=== PATIENT | female | born 1960 | race Caucasian/White ===

== ENCOUNTER → 2017-08-31 11:38 | Outpatient (REF) | payer MEDICARE, SELFPAY ==
[2017-08-31 19:15] LABS: Basophils # 0.1 K/mm3 (0-0.2); Basophils % 0.7 % (0.1-2.0); Eosinophils # 0.3 K/mm3 (0.0-0.4); Eosinophils % 3.5 % (0.1-12.0); Hematocrit 45.1 % (37.0-47.0); Hemoglobin 14.3 g/dL (12.2-16.2); Lymphocytes # 2.3 K/mm3 (0.7-4.5); Lymphocytes % 27.8 K/mm3 (10-50); Mean Corpuscular HGB Conc 31.7 g/dL (31.8-35.4); Mean Corpuscular Hemoglobin 27.4 pg (27.0-31.2); Mean Corpuscular Volume 86.4 fl (81-99); Mean Platelet Volume 9.9 fl (7.4-10.4); Monocytes # 0.6 K/mm3 (0.1-1.0); Monocytes % 7.1 % (1.7-9.3); Neutrophils % 60.9 % (37.0-80.0); Platelet Count 221 K/mm3 (142-424); Red Blood Count 5.22 M/mm3 (4.20-5.40); Red Cell Distribution Width 14.5 % (11.5-17.5); White Blood Count 8.2 K/mm3 (4.8-10.8)
[2017-08-31 19:32] LABS: Alanine Aminotransferase 15 U/L (12-78); Albumin Level 3.1 gm/dL (3.4-5.0); Albumin/Globulin Ratio 0.8 (1.1-1.8); Alkaline Phosphatase 121 U/L (46-116); Anion Gap 10.1 mEq/L (5-15); Aspartate Amino Transferase 12 U/L (15-37); Bilirubin,Total 0.1 mg/dL (0.2-1.0); Blood Urea Nitrogen 8 mg/dL (7-18); Calcium 8.7 mg/dL (8.5-10.1); Carbon Dioxide 30 mmol/L (21.0-32.0); Chloride 106 mmol/L (98-107); Chol/HDL Ratio 1.8 (1-3.5); Cholesterol 138 mg/dL (140-200); Creatinine,Serum 0.72 mg/dL (0.55-1.02); Estimated Glomerular Filt Rate 84 ml/min (>60); GFR (African American) 101 ML/MIN (>60); Globulin 3.7 gm/dl (1.3-3.2); Glucose 87 mg/dL (74-106); HDL Cholesterol 78 mg/dL (29-89); LDL Cholesterol 47 mg/dL (0-130); Potassium 4.1 mmoL/L (3.5-5.1); Sodium 142 mmol/L (136-145); T4 (Thyroxine) 14.1 ug/dl (4.7-13.3); Thyroid Stimulating Hormone 1.64 uIU/ml (0.358-3.740); Total Protein,Serum 6.8 gm/dL (6.4-8.2); Triglycerides 66 mg/dL (30-200); VLDL Cholesterol 13 mg/dL (0-40)
[2017-08-31 20:25] LABS: Amphetamine/Metha Screen,Urine Negative ng/mL (<1000); Barbiturates Screen,Urine Negative ng/mL (<200); Benzodiazepines Screen,Urine Negative ng/mL (200); Cannabinoid Screen,Urine Negative ng/mL (<50); Cocaine Screen,Urine Negative ng/g (<300); Methadone Screen,Urine Negative ng/mL (<300); Opiate Screen,Urine Negative ng/mL (<300); Phencyclidine Screen,Urine Negative ng/mL (<25)
== END ==
LOC: LAB 11:38
PROVIDERS: Visit Provider Physician Assistant
DX: Z79.899 Other long term (current) drug therapy (principal); I10 Essential (primary) hypertension; F41.9 Anxiety disorder, unspecified
CPT/HCPCS: 80053; 80061; 80305; 84436; 84443; 85025

== ENCOUNTER → 2017-09-16 09:45 | Outpatient (CLI) | payer MEDICARE, SELFPAY ==
[2017-09-16 11:16] VITALS: BP 114/77; BP 134/91; PULSE 68; PULSE 70; RESP 18; RESP 22; O2SAT 92; O2SAT 95
== END ==
PROVIDERS: PCP Physician Assistant; Visit Provider Internal Medicine
DX: J43.9 Emphysema, unspecified (principal); J44.9 Chronic obstructive pulmonary disease, unspecified; R06.02 Shortness of breath
CPT/HCPCS: 94060; 94618; 94640; 94727; 94729

== ENCOUNTER 2017-12-12 08:00 | Outpatient (RCR) | payer MEDICARE, SELFPAY ==
--- NOTE | 2017-11-07 10:03 | HMH.PTOPEV ---
Rehab Outpatient Evaluation Rehab OP Evaluation Start: 11/07/17 09:49 Freq: Status: Active Protocol: Document 11/07/17 09:52 YON (Rec: 11/07/17 10:03 YON [id number]) Electronically Signed By Viraj Dukes PT 11/07/17 09:52 Outpatient Therapy Subjective History Subjective History This is the initial Physical Therapy evaluation for Lacy Shaw. Pt is a 57 y/o female referred to PT for c/o LBP and RLE radicular S&S. Pt reports years of intermittant pain w. sciatica . Pt reports this bout began ~ 2 months ago w/ insidious onset. Chief Complaint Pain Stiff Paresthesia Weakness Symptom Type Ache Throb Sharp Dull Stabbing Burning Numbness Tingling Shooting Symptoms Relieved By Heat OTC Meds Symptoms Aggravated By Sitting Standing Bending/Stooping Physical Activity Walking Prior Functional Limitations None Current Functional Limitations Lifting Housework Sleeping Standing Sitting Recreation Activity Walking Bending/Stooping Symptom Description Intermittent Activity Dependent Level of pain today (0-10) 8 Pain scale - at its best (0-10) 0 Pain scale - at its worst (0-10) 9 Lumbopelvic Eval Posture Thoracic Spine Posture Standing Position Increased Kyphosis Lumbar Spine Posture Standing Position Flattened Assistive device Assistive Devices None / NA Gait Observation General Gait Pattern Observation Antalgic Gait Palapation tenderness bilateral thoracic spinal tenderness No lumbar spinal tenderness Yes paraspinal tenderness Yes buttock tenderness Yes: R Lumbar/Sacral Palpation Findings Tenderness Accessory Movement L-spine Vertebrae Accessory Movements Central P/A [place] that Elicit Symptoms
== END 2017-12-12 08:01 | disposition home or self-care (01) ==
LOC: PT 08:00
PROVIDERS: PCP Physician Assistant; Visit Provider Physician Assistant
DX: M54.30 Sciatica, unspecified side (principal)
CPT/HCPCS: 97010; 97012; 97014; 97035; 97110; G0283

== ENCOUNTER → 2017-12-19 12:52 | Outpatient (CLI) | payer MEDICARE, SELFPAY ==
--- NOTE | 2017-12-19 12:53 | MR_ITS ---
MR lumbar spine wo con, MR 3-d myelogram/MRCP Ordering Physician: MELISSA Houser Patient Age: 57 years: Female HISTORY: ITS.REASON: back pain radiating to bilateral legs TECHNIQUE: Sagittal STIR, T1, T2, axial T1 and T2. On 1.5T Siemens wide bore MRI. 3-D MR myelogram image set obtained & performed on MRI workstation. Additional sagittal thin section T2 weighted dataset obtained from this latter acquisition as well (---76 CPT) COMPARISON : 2015 MRI L-spine FINDINGS . Vertebral bodies appear intact. No lesions or significant compression fractures. There is normal alignment. Conus ends appropriately L1-L2 level. T12-L1: Unremarkable. L1-L2: Minimal concentric bulging disc slightly eccentric to the right with minimal right foraminal narrowing. L2-L3: Minimal facet hypertrophic change. L3-L4: concentric bulging disc with additional foraminal bulge. Moderate facet hypertrophy. The disc is slightly eccentric to the right with associated early posterior marginal osteophytes posteriorly rightward-. These features yield moderate right foraminal narrowing. . No significant change since prior study.. L4-L5: Degenerative disc disease with moderate concentric bulging disc and spondylosis. Mild diffuse posterior ridging. Moderate facet & ligamentum flavum hypertrophy.. These features combine to yield now moderate central canalstenosis ; with bilateral lateral recess narrowing & foraminal encroachment at at L4-L5.. Slight progression of the central canal stenosis based on the 3-D MR myelogram image set since 2016. Multiple features further narrow the spinal canal these are described above also slight additional fat posterior additionally narrows the thecal sac Appears to be slight additional disc bulge and protrusion to the right- most notable at and lateral lateral to the right foramen on today's study vs prior. L5-S1: Degenerative disc disease with mild spondylosis, & diffuse bulging disc. Facet and endplate hypertrophic change. Yield moderate bilateral foraminal narrowing. May be to be slight progression of the bulging disc at entry right foramen and left foramen No Elmer disc herniation is evident. 3-D MR myelogram image set suggests slight progression of spinal stenosis most pronounced at L4/5 level . L3/4 with mild tapering the spinal canal more evident to the right IMPRESSION: 1. Multilevel bulging disc with degenerative disc disease as detailed of each level above with resultant multiple areas of foraminal encroachment. ... L4/5: Most prominent findings are at L4/5 where moderate spinal stenosis. -This appears to have shown slight progression since 2016 Degenerative disc disease at L4-L5 with spondylosis & moderate diffuse disc bulge. Also Suggestion perhaps subtle progressive disc bulge/mild protrusion seen rightward & continuing lateral to the right foramen. Moderate bilateralforaminal narrowing & lateral recess narrowing. ... L5/S1 Moderate bilateral foraminal narrowing at L5-S1 from spondylosis with bulging disc & facet hypertrophy. Moderate Bilateral recess and foraminal encroachment- similar to questionable slight progression bilaterally since 2016. ... L3/4 stable Right foraminal narrowing at L3-L4 due to bulging disc and endplatehypertrophic change 5. No elmer disc herniation evident.
== END ==
PROVIDERS: PCP Physician Assistant; Visit Provider Physician Assistant
DX: M54.40 Lumbago with sciatica, unspecified side (principal); M48.061 Spinal stenosis, lumbar region without neurogenic claudication
CPT/HCPCS: 72148; 76376

== ENCOUNTER → 2017-12-28 13:17 | Outpatient (REF) | payer MEDICARE, SELFPAY ==
[2017-12-28 19:30] LABS: Amphetamine/Metha Screen,Urine Negative ng/mL (<1000); Barbiturates Screen,Urine Negative ng/mL (<200); Benzodiazepines Screen,Urine Negative ng/mL (200); Cannabinoid Screen,Urine Negative ng/mL (<50); Cocaine Screen,Urine Negative ng/g (<300); Methadone Screen,Urine Negative ng/mL (<300); Opiate Screen,Urine Negative ng/mL (<300); Phencyclidine Screen,Urine Negative ng/mL (<25)
== END ==
LOC: LAB 13:17
PROVIDERS: Visit Provider Physician Assistant
DX: M79.7 Fibromyalgia (principal)
CPT/HCPCS: 80305

== ENCOUNTER → 2018-02-21 09:25 | Outpatient (REF) | payer MEDICARE, SELFPAY ==
[2018-02-21 13:21] LABS: Basophils # 0.1 K/mm3 (0-0.2); Basophils % 0.7 % (0.1-2.0); Eosinophils # 0.3 K/mm3 (0.0-0.4); Eosinophils % 3.9 % (0.1-12.0); Hematocrit 37.2 % (37.0-47.0); Hemoglobin 14.1 g/dL (12.2-16.2); Lymphocytes # 2.1 K/mm3 (0.7-4.5); Lymphocytes % 26.9 K/mm3 (10-50); Mean Corpuscular HGB Conc 38.1 g/dL (31.8-35.4); Mean Corpuscular Hemoglobin 32.5 pg (27.0-31.2); Mean Corpuscular Volume 85.4 fl (81-99); Mean Platelet Volume 9.4 fl (7.4-10.4); Monocytes # 0.4 K/mm3 (0.1-1.0); Monocytes % 5.7 % (1.7-9.3); Neutrophils # 4.9 K/mm3 (1.8-7.8); Neutrophils % 62.7 % (37.0-80.0); Platelet Count 179 K/mm3 (142-424); Red Blood Count 4.35 M/mm3 (4.20-5.40); Red Cell Distribution Width 14.7 % (11.5-17.5); White Blood Count 7.8 K/mm3 (4.8-10.8)
[2018-02-21 14:19] LABS: Alanine Aminotransferase 24 U/L (12-78); Albumin Level 3.5 gm/dL (3.4-5.0); Alkaline Phosphatase 132 U/L (46-116); Anion Gap 14.1 mEq/L (5-15); Aspartate Amino Transferase 17 U/L (15-37); Bilirubin,Total 0.3 mg/dL (0.2-1.0); Blood Urea Nitrogen 6 mg/dL (7-18); Calcium 9.3 mg/dL (8.5-10.1); Carbon Dioxide 29 mmol/L (21.0-32.0); Chloride 105 mmol/L (98-107); Chol/HDL Ratio 2.5 (1-3.5); Cholesterol 136 mg/dL (140-200); Creatinine,Serum 0.62 mg/dL (0.55-1.02); Estimated Glomerular Filt Rate 100 ml/min (>60); GFR (African American) 120 ML/MIN (>60); Globulin 3.6 gm/dl (1.3-3.2); Glucose 100 mg/dL (74-106); HDL Cholesterol 55 mg/dL (29-89); LDL Cholesterol 65 mg/dL (0-130); Potassium 4.1 mmoL/L (3.5-5.1); Sodium 144 mmol/L (136-145); T4 (Thyroxine) 9.9 ug/dl (4.7-13.3); Thyroid Stimulating Hormone 1.76 uIU/ml (0.358-3.740); Total Protein,Serum 7.1 gm/dL (6.4-8.2); Triglycerides 81 mg/dL (30-200); VLDL Cholesterol 16 mg/dL (0-40)
[2018-02-22 12:26] LABS: Vitamin D 25 Hydroxy 25.9 ng/mL (30.0-100.0)
== END ==
LOC: LAB 09:25
PROVIDERS: Visit Provider Physician Assistant
DX: J44.9 Chronic obstructive pulmonary disease, unspecified (principal); M79.7 Fibromyalgia; E66.9 Obesity, unspecified; E03.9 Hypothyroidism, unspecified; E78.5 Hyperlipidemia, unspecified; E55.9 Vitamin D deficiency, unspecified
CPT/HCPCS: 80053; 80061; 82652; 84436; 84443; 85025

== ENCOUNTER → 2018-05-15 10:20 | Outpatient (REF) | payer MEDICARE, SELFPAY ==
[2018-05-15 14:44] LABS: Basophils # 0.1 K/mm3 (0-0.2); Basophils % 0.4 % (0.1-2.0); Eosinophils # 0.1 K/mm3 (0.0-0.4); Eosinophils % 1.1 % (0.1-12.0); Hematocrit 46.3 % (37.0-47.0); Hemoglobin 14.5 g/dL (12.2-16.2); Lymphocytes # 2.4 K/mm3 (0.7-4.5); Lymphocytes % 22.9 K/mm3 (10-50); Mean Corpuscular HGB Conc 31.3 g/dL (31.8-35.4); Mean Corpuscular Volume 86.3 fl (81-99); Mean Platelet Volume 9.4 fl (7.4-10.4); Monocytes # 0.6 K/mm3 (0.1-1.0); Monocytes % 5.3 % (1.7-9.3); Neutrophils # 7.5 K/mm3 (1.8-7.8); Neutrophils % 70.2 % (37.0-80.0); Platelet Count 275 K/mm3 (142-424); Red Blood Count 5.37 M/mm3 (4.20-5.40); White Blood Count 10.7 K/mm3 (4.8-10.8)
[2018-05-15 14:58] LABS: Alanine Aminotransferase 28 U/L (12-78); Albumin Level 3.4 gm/dL (3.4-5.0); Albumin/Globulin Ratio 0.9 (1.1-1.8); Alkaline Phosphatase 131 U/L (46-116); Anion Gap 9.4 mEq/L (5-15); Aspartate Amino Transferase 12 U/L (15-37); Bilirubin,Total 0.2 mg/dL (0.2-1.0); Blood Urea Nitrogen 8 mg/dL (7-18); Calcium 9.3 mg/dL (8.5-10.1); Carbon Dioxide 33 mmol/L (21.0-32.0); Chloride 105 mmol/L (98-107); Cholesterol 153 mg/dL (140-200); Creatinine,Serum 0.58 mg/dL (0.55-1.02); Estimated Glomerular Filt Rate 108 ml/min (>60); GFR (African American) 130 ML/MIN (>60); Globulin 3.7 gm/dl (1.3-3.2); Glucose 83 mg/dL (74-106); HDL Cholesterol 75 mg/dL (29-89); LDL Cholesterol 66 mg/dL (0-130); Potassium 4.4 mmoL/L (3.5-5.1); Sodium 143 mmol/L (136-145); T4 (Thyroxine) 8.2 ug/dl (4.7-13.3); Thyroid Stimulating Hormone 1.58 uIU/ml (0.358-3.740); Total Protein,Serum 7.1 gm/dL (6.4-8.2); Triglycerides 60 mg/dL (30-200); VLDL Cholesterol 12 mg/dL (0-40)
[2018-05-17 16:51] LABS: Vitamin D 25 Hydroxy 35.4 ng/mL (30.0-100.0)
== END ==
LOC: LAB 10:20
PROVIDERS: Visit Provider Physician Assistant
DX: M79.7 Fibromyalgia (principal); E03.9 Hypothyroidism, unspecified; E78.5 Hyperlipidemia, unspecified; R73.9 Hyperglycemia, unspecified
CPT/HCPCS: 80053; 80061; 82652; 83036; 84436; 84443; 85025

== ENCOUNTER → 2018-05-15 10:39 | Outpatient (POV) | payer MEDICARE, SELFPAY | PROVIDERS: PCP Physician Assistant; Visit Provider Specialist | DX: R20.2 Paresthesia of skin (principal); M79.7 Fibromyalgia; E03.9 Hypothyroidism, unspecified; E78.5 Hyperlipidemia, unspecified; R73.9 Hyperglycemia, unspecified | CPT/HCPCS: 80053; 80061; 82652; 83036; 84436; 84443; 85025; 95886; 95909 ==

== ENCOUNTER → 2018-05-30 09:48 | Outpatient (CLI) | payer MEDICARE, SELFPAY ==
--- NOTE | 2018-05-30 | NVE_ITS ---
Venous Exam Indications: 729.5 Pain in limb. IMPRESSIONS 1. There is no evidence of significant Reflux. 2. No evidence of deep or superficial vein thrombosis involving the left lower extremity History: Medications: Aspirin, 81 mg daily. Left lower extremity venous duplex evaluation. Doppler flow study including spectral analysis, color and barone scale imaging. Location: Vascular laboratory. Patient status: Outpatient. Tables: Venous flow and imaging: + + + + Location Overall Flow properties + + + + Left common femoral Patent Normal phasicity; spontaneous; normal augmentation; compressible + + + + Left saphenofemoral junction Patent Compressible + + + + Left profunda femoral Patent Compressible + + + + Left femoral Patent Normal phasicity; spontaneous; normal augmentation; compressible + + + + Left greater saphenous Patent Normal phasicity; spontaneous; normal augmentation; compressible + + + + Left popliteal Patent Normal phasicity; spontaneous; normal augmentation; compressible + + + + Left posterior tibial Patent Compressible + + + + Left peroneal Not visualized + + + + Left gastrocnemius Patent Compressible + + + + Left soleal Patent Compressible + + + + (Report amended ) Electronically signed by: Fidencio Rand [id number]
== END ==
PROVIDERS: PCP Physician Assistant; Visit Provider Nurse Practitioner Family
DX: M79.605 Pain in left leg (principal); M79.604 Pain in right leg
CPT/HCPCS: 93971

== ENCOUNTER → 2018-06-20 10:53 | Outpatient (POV) | payer MEDICARE, SELFPAY ==
[2018-06-20 11:09] VITALS: BP 190/92; PULSE 77; RESP 18; O2SAT 98
--- NOTE | 2018-06-20 12:51 | HMH.PMCON ---
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 I will follow-up with her 2 weeks after. I discussed with her we would not be writing any medications. This note was dictated using voice recognition software and may contain errors or omissions HPI - Data of Consult Consult date: 06/20/18 Requesting Physician: Bree Meléndez APRN Primary Care Provider: MELISSA Yin - Consult Narrative Reason for consult: Back pain History of present illness: Ms. Shaw is a 57 year old female who presents today for consultation for her low back pain. Patient has been seen in our clinic before and self discharged after she stated that injections did not help. Patient is again because she would like to try injections with Dr. Shields. Patient is not on any blood thinners. Patient's tried and failed physical therapy. She has been receiving injections from Dr. Debra Freedman in her hips. She states that this does help. Patient's tried and failed Flexeril, Cymbalta, Lexapro, Lortab, Motrin, Mobic, Paxil, Zoloft, Lyrica and gets some relief with a TENS unit. Patient states that she would like something for pain today. I discussed with her we would not be writing her any medications. She does have an MRI showing some degenerative changes in her low back. CC: Bree Meléndez APRN [facility] History I have reviewed the patient's past medical history: Yes Medical History: Reports:: Anxiety, Chronic Obstructive Pulmonary Disease (COPD), Gastroesophageal Reflux Disease(GERD), Hyperlipidemia, Hypertension Denies:: Diabetes Mellitus Type 2 Other Medical History: Reports: Hypothyroidism, Other Other Surgeries: Yes: Colonoscopy, , Hernia Repair, Sinus Surgery, Tubal Ligation Amputation: No Fractures: No - *Social History Smoking Status: Current every day smoker Tobacco Type: cigarettes # Packs/Day (cigarettes): 1 Alcohol Intake: never Substance Use Type: denies use Occupational Status: disabled Housing: house Household Members: family - Psychiatric History Expresses thoughts of harming self/others: None Suicide Plan Description: No Plan Pschychiatric History:: Reports:: Anxiety *Family Hx:: Cancer, Coronary Artery Disease, Hypertension Review of Systems - Review of Systems ROS General: no recent weight change, no fever, no sleep disturbances Respiratory: no cough, no shortness of air, no recurring pulmonary infections Cardiovascular/Peripheral Vascular: No chest pain, No palpitations, no edema, no shortness of breath. Gastrointestinal: no incontinence, normal bowel movements reported Genitourinary: no incontinence Musculoskeletal: Back pain, leg pain Psychiatric: normal mood/ affect Neurological: [denies weakness in extremities], [denies balance issues] Meds Home Medications Medication Instructions Recorded Confirmed Type meclizine 25 mg capsule 25 mg PO QID PRN 08/31/17 06/12/18 History azithromycin 250 mg tablet 250 mg PO .[id number] tab 12/28/17 06/12/18 History ALPRAZolam [Xanax 0.5mg tab] 0.5 mg PO BID 03/03/18 06/12/18 History Aspirin [Low Dose Aspirin EC] 81 mg PO QDAY 03/03/18 06/12/18 History Cholecalciferol (Vitamin D3) 1,000 unit PO DAILY 03/03/18 06/12/18 History [Vitam
--- NOTE | 2018-06-20 12:54 | P.CONS_ITS ---
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 I will follow-up with her 2 weeks after. I discussed with her we would not be writing any medications. This note was dictated using voice recognition software and may contain errors or omissions HPI - Data of Consult Consult date: 06/20/18 Requesting Physician: Bree Meléndez APRN Primary Care Provider: MELISSA Yin - Consult Narrative Reason for consult: Back pain History of present illness: Ms. Shaw is a 57 year old female who presents today for consultation for her low back pain. Patient has been seen in our clinic before and self discharged after she stated that injections did not help. Patient is again because she would like to try injections with Dr. Shields. Patient is not on any blood thinners. Patient's tried and failed physical therapy. She has been receiving injections from Dr. Debra Freedman in her hips. She states that this does help. Patient's tried and failed Flexeril, Cymbalta, Lexapro, Lortab, Motrin, Mobic, Paxil, Zoloft, Lyrica and gets some relief with a TENS unit. Patient sta jackie that she would like something for pain today. I discussed with her we would not be writing her any medications. She does have an MRI showing some degenerative changes in her low back. CC: Bree Meléndez APRN [facility] History I have reviewed the patient's past medical history: Yes Medical History: Reports:: Anxiety, Chronic Obstructive Pulmonary Disease (COPD), Gastroesophageal Reflux Disease(GERD), Hyperlipidemia, Hypertension Denies:: Diabetes Mellitus Type 2 Other Medical History: Reports: Hypothyroidism, Other Other Surgeries: Yes: Colonoscopy, , Hernia Repair, Sinus Surgery, Tubal Ligation Amputation: No Fractures: No - *Social History Smoking Status: Current every day smoker Tobacco Type: cigarettes # Packs/Day (cigarettes): 1 Alcohol Intake: never Substance Use Type: denies use Occupational Status: disabled Housing: house Household Members: family - Psychiatric History Expresses thoughts of harming self/others: None Suicide Plan Description: No Plan Pschychiatric History:: Reports:: Anxiety *Family Hx:: Cancer, Coronary Artery Disease, Hypertension Review of Systems - Review of Systems ROS General: no recent weight change, no fever, no sleep disturbances Respiratory: no cough, no shortness of air, no recurring pulmonary infections Cardiovascular/Peripheral Vascular: No chest pain, No palpitations, no edema, no shortness of breath. Gastrointestinal: no incontinence, normal bowel movements reported Genitourinary: no incontinence Musculoskeletal: Back pain, leg pain Psychiatric: normal mood/ affect Neurological: [denies weakness in extremities], [denies balance issues] Meds
== END ==
PROVIDERS: PCP Physician Assistant; Visit Provider Clinical Nurse Specialist Family Health
DX: M48.061 Spinal stenosis, lumbar region without neurogenic claudication (principal); M51.36 Other intervertebral disc degeneration, lumbar region; M25.78 Osteophyte, vertebrae
CPT/HCPCS: 99202

== ENCOUNTER → 2018-07-11 09:21 | Outpatient (CLI) | payer MEDICARE, SELFPAY ==
--- NOTE | 2018-07-11 09:22 | MM_ITS ---
MM Dig screening mamm BI w/CAD CAD Screening COMPARISON: Digital mammograms with CAD 06/02/2017 and 05/03/2016 INDICATION: There is no personal or family history of breast cancer. There has been a previous biopsy left breast for benign disease. TECHNIQUE: Standard CC and MLO images were obtained. R2 CAD reviewed. FINDINGS: The breasts are composed primarily of fat with scattered fibroglandular densities in the subareolar regions bilaterally. There are few benign-appearing calcifications left breast. There is a mole marker left breast. There is a stable tiny nodular benign-appearing density axillary tail right breast. There is no suspicious lesion and there are no suspicious microcalcifications IMPRESSION: Fibrofatty parenchyma with no suspicious lesion seen BI-RADS Category: 2 Benign Finding(s) RECOMMENDED FOLLOW-UP: 1YR - 1 YEAR FOLLOW-UP (A letter has been sent to the patient regarding results of the study.)
== END ==
PROVIDERS: PCP Nurse Practitioner Family; Visit Provider Nurse Practitioner Family
DX: Z12.31 Encounter for screening mammogram for malignant neoplasm of breast (principal)
CPT/HCPCS: 77067

== ENCOUNTER → 2018-07-19 09:04 | Outpatient (CLI) | payer MEDICARE, SELFPAY ==
[2018-07-19 14:18] LABS: Basophils # 0.1 K/mm3 (0-0.2); Basophils % 0.6 % (0.1-2.0); Eosinophils # 0.3 K/mm3 (0.0-0.4); Eosinophils % 3.5 % (0.1-12.0); Hematocrit 41.6 % (37.0-47.0); Hemoglobin 13.2 g/dL (12.2-16.2); Lymphocytes % 26.2 % (10-50); Mean Corpuscular HGB Conc 31.9 g/dL (31.8-35.4); Mean Corpuscular Hemoglobin 27.5 pg (27.0-31.2); Mean Corpuscular Volume 86.4 fl (81-99); Mean Platelet Volume 10.5 fl (7.4-10.4); Monocytes # 0.4 K/mm3 (0.1-1.0); Monocytes % 4.9 % (1.7-9.3); Neutrophils # 4.9 K/mm3 (1.8-7.8); Neutrophils % 64.8 % (37.0-80.0); Platelet Count 146 K/mm3 (142-424); Red Blood Count 4.81 M/mm3 (4.20-5.40); Red Cell Distribution Width 15.7 % (11.5-17.5); White Blood Count 7.5 K/mm3 (4.8-10.8)
[2018-07-19 15:13] LABS: Alanine Aminotransferase 34 U/L (12-78); Albumin/Globulin Ratio 0.8 (1.1-1.8); Alkaline Phosphatase 124 U/L (46-116); Anion Gap 10.8 mEq/L (5-15); Aspartate Amino Transferase 12 U/L (15-37); Bilirubin,Total 0.3 mg/dL (0.2-1.0); Blood Urea Nitrogen 4 mg/dL (7-18); Calcium 8.9 mg/dL (8.5-10.1); Carbon Dioxide 33 mmol/L (21.0-32.0); Chloride 104 mmol/L (98-107); Estimated Glomerular Filt Rate 103 ml/min (>60); GFR (African American) 125 ML/MIN (>60); Globulin 3.8 gm/dl (1.3-3.2); Glucose 83 mg/dL (74-106); Potassium 3.8 mmoL/L (3.5-5.1); Sodium 144 mmol/L (136-145); Thyroid Stimulating Hormone 2.87 uIU/ml (0.358-3.740); Total Protein,Serum 6.8 gm/dL (6.4-8.2)
[2018-07-21 10:52] LABS: Vitamin B12 251 pg/mL (232-1245)
== END ==
PROVIDERS: PCP Nurse Practitioner Family; Visit Provider Nurse Practitioner Family
DX: R53.1 Weakness (principal); E53.8 Deficiency of other specified B group vitamins
CPT/HCPCS: 36415; 80053; 82607; 84443; 85025

== ENCOUNTER 2018-10-05 08:00 | Outpatient (RCR) | payer MEDICARE, SELFPAY | END 2018-10-05 08:05 | disposition home or self-care (01) | LOC: PT 08:00 | PROVIDERS: Visit Provider Neurological Surgery | DX: Z98.890 Other specified postprocedural states (principal); M51.36 Other intervertebral disc degeneration, lumbar region | CPT/HCPCS: 97010; 97014; 97110; 97163; G0283 ==

== ENCOUNTER → 2018-10-17 13:13 | Outpatient (POV) | payer MEDICARE, SELFPAY | PROVIDERS: Visit Provider Internal Medicine | DX: Z00.00 Encounter for general adult medical examination without abnormal findings (principal) ==

== ENCOUNTER → 2018-12-26 07:39 | Outpatient (CLI) | payer MEDICARE, SELFPAY ==
--- NOTE | 2018-12-26 07:45 | MR_ITS ---
MR lumbar spine wo con, MR 3-d myelogram/MRCP HISTORY: Low back pain X2 -3 months. Bilateral leg pain, numbness, and tingling. RT side worse. Prior Lumbar surgery Aug 2018. ITS.REASON: LOW BACK PAIN ORDERING PHYSICIAN: Micaela Fernandez APRN PATIENT AGE: 58 years Comparison: MRI 12/19/2017. TECHNIQUE: Standard multiplanar multiecho sequences are performed without contrast. 3-D MIP and myelographic images are also rendered and reviewed FINDINGS: There is mild degree of motion artifact which somewhat obscures fine detail. The spinal cord ends at the L1-L2 level. There is normal alignment. T12-L1: There is a small right paracentral disc protrusion/disc osteophyte complex causing mild to moderate right-sided lateral recess and foraminal narrowing. This is slightly more prominent compared to the previous study. T12-L1: Unremarkable. L1-L2: There is minimal right paracentral disc protrusion without impingement. Mild facet and ligamentum flavum hypertrophy. L2-L3: Minimal bulging of the disc with facet and ligamentum flavum hypertrophy. The nerve roots at this level are somewhat flattened and located anteriorly within the canal. This is in contrast compared to the previous exam with the nerve roots were located normally in the mid and posterior aspect of the thecal sac. This raises the question of arachnoiditis has had surgery. L3-L4: Mild concentric bulging disc with facet and ligamentum flavum hypertrophy with moderate right-sided foraminal and mild left-sided foraminal narrowing. Once again the nerve roots are noted to be bunched anteriorly in the thecal sac. L4-L5: There has been an interval laminectomy with bulging disc along with facet and ligamentum flavum hypertrophy. There is severe bilateral foraminal narrowing. A fluid collection is present in the laminectomy site measuring 4 x 4 cm longitudinal and AP and is 3.1 cm transverse. This does appear loculated. Does appear to be compressing the thecal sac posteriorly and on the right side causing the thecal sac to be deviated anteriorly and toward the left. There is heterogeneous signal intensity of the soft tissues posterior to this collection consistent with postsurgical changes. L5-S1: Degenerative disc disease with facet and ligamentum hypertrophy and bulging disc with bilateral foraminal narrowing. IMPRESSION: 1. Abnormal MRI of the lumbar spine with degenerative disc disease and facet ligamentum hypertrophy with multiple abnormalities as detailed above with bilateral lateral recess and foraminal narrowing.. Please see above for detailed description at each level. There is a right paracentral disc protrusion/disc osteophyte complex at T12-L1, small right paracentral disc protrusion at L1-L2, bulging disc at L2-L3 and L3-L4 with facet and ligamentum flavum hypertrophy 2. Clumping of the nerve roots at L2-L3 and L3-L4 which may indicate arachnoiditis. 3. There has been an interval laminectomy at L4-L5 with bulging disc along with facet and ligamentum flavum hypertrophy. There is severe bilateral foraminal narrowing. A fluid collection is present in the laminectomy site measuring 4 x 4 cm longitudinal and AP and is 3.1 cm transverse. This does appear loculated. This is compressing the thecal sac posteriorly and on the right side causing the thecal sac to be deviated anteriorly and toward the left. This may represent a postsurgical seroma. An abscess is not excluded. Correlate with clinical findings. Suggest MRI of the lumbar spine without and with contrast for further evaluation.
== END ==
PROVIDERS: PCP Nurse Practitioner Family; Visit Provider Nurse Practitioner Family
DX: M54.5 Low back pain (principal)
CPT/HCPCS: 72148; 76376

== ENCOUNTER → 2018-12-28 10:27 | Outpatient (CLI) | payer MEDICARE, SELFPAY ==
[2018-12-28 13:31] LABS: Basophils % 0.5 % (0.1-2.0); Eosinophils # 0.3 K/mm3 (0.0-0.4); Eosinophils % 3.3 % (0.1-12.0); Hematocrit 39.3 % (37.0-47.0); Hemoglobin 12.2 g/dL (12.2-16.2); Lymphocytes # 2.4 K/mm3 (0.7-4.5); Lymphocytes % 27.4 % (10-50); Mean Corpuscular Hemoglobin 26.2 pg (27.0-31.2); Mean Corpuscular Volume 84.3 fl (81-99); Mean Platelet Volume 8.7 fl (7.4-10.4); Monocytes # 0.3 K/mm3 (0.1-1.0); Monocytes % 3.9 % (1.7-9.3); Neutrophils # 5.8 K/mm3 (1.8-7.8); Platelet Count 214 K/mm3 (142-424); Red Blood Count 4.66 M/mm3 (4.20-5.40); Red Cell Distribution Width 16.5 % (11.5-17.5); White Blood Count 8.9 K/mm3 (4.8-10.8)
[2018-12-28 14:26] LABS: Activated Partial Thrombo Time 27.8 seconds (23.6-34.0)
[2018-12-28 16:54] LABS: Anion Gap 16.6 mEq/L (5-15); Blood Urea Nitrogen 6 mg/dL (7-18); Calcium 8.9 mg/dL (8.5-10.1); Carbon Dioxide 23 mmol/L (21.0-32.0); Chloride 102 mmol/L (98-107); Creatinine,Serum 0.71 mg/dL (0.55-1.02); Estimated Glomerular Filt Rate 85 ml/min (>60); GFR (African American) 103 ML/MIN (>60); Glucose 114 mg/dL (74-106); Potassium 3.6 mmoL/L (3.5-5.1); Sodium 138 mmol/L (136-145)
== END ==
PROVIDERS: PCP Nurse Practitioner Family; Visit Provider Neurological Surgery
DX: Z00.00 Encounter for general adult medical examination without abnormal findings (principal); D69.9 Hemorrhagic condition, unspecified
CPT/HCPCS: 36415; 80048; 85025; 85730

== ENCOUNTER → 2019-03-05 07:37 | Outpatient (CLI) | payer MEDICARE, SELFPAY ==
--- NOTE | 2019-03-05 09:10 | MR_ITS ---
MR lumbar spine wo/w con, MR 3-d myelogram/MRCP HISTORY: Low back pain, status post laminectomy, sudden onset of right-sided sciatica, right leg pain ORDERING PHYSICIAN: Viraj Young PATIENT AGE: 58 years Comparison: 12/26/2018 TECHNIQUE: Standard multiplanar multiecho sequences are performed without and with gadolinium enhancement . 3-D MIP and myelographic images are also rendered and reviewed FINDINGS: There is normal alignment. The spinal cord ends at the L1-L2 level. T11-T12: This area is not imaged on today's study. Previously there was a small right paracentral disc osteophyte complex causing moderate right-sided lateral recess and foraminal narrowing. T12-L1: Unremarkable. L1-L2: There is a tiny right paracentral disc protrusion unchanged. L2-L3: There is mild concentric bulging disc which is slightly eccentric to the left with facet and ligamentum hypertrophy with mild bilateral lateral foraminal narrowing. L3-L4: Degenerative disc disease with mild Concentric bulging disc which is eccentric toward the right with right lateral recess and foraminal narrowing. L4-L5: Degenerative disc disease with bulging disc and endplate hypertrophic change with laminectomy defect. Previously noted fluid collection posterior to the L4 and L5 vertebral bodies in the surgical bed is no longer apparent. There is a small amount of fluid posterior to the thecal sac at the L5 L4 level. At this level there is severe bilateral foraminal narrowing from facet and ligamentum flavum hypertrophy along with the bulging disc and endplate hypertrophic changes. There is some mild generalized enhancement of the soft tissues in the posterior paraspinal region but no obvious abscess. No obvious epidural fibrosis surrounding the nerve roots at this level. L5-S1: Degenerative disc disease with bulging disc and facet and ligamentum flavum hypertrophy with moderate bilateral foraminal narrowing. IMPRESSION: 1. Previously noted fluid collection posterior to the L4 and L5 vertebral bodies within the soft tissues in the surgical bed is nearly completely gone.. No evidence of enhancement that would indicate an abscess. 2. Severe bilateral foraminal narrowing at L4-L5 from facet and ligamentum flavum hypertrophy and bulging disc with endplate hypertrophic change 3. Lumbar spondylosis with other degenerative changes as detailed above. Please see above for detailed description at each level 4. Previous study did demonstrate a small right paracentral/foraminal disc osteophyte complex at T11-T12 not imaged on today's exam
[2019-03-05 10:03] LABS: Blood Urea Nitrogen 9 mg/dL (7-18); Creatinine,Serum 0.63 mg/dL (0.55-1.02); Estimated Glomerular Filt Rate 97 ml/min (>60); GFR (African American) 118 ML/MIN (>60)
== END ==
PROVIDERS: Visit Provider Neurological Surgery
DX: Z00.00 Encounter for general adult medical examination without abnormal findings (principal); M54.5 Low back pain; M51.36 Other intervertebral disc degeneration, lumbar region; M47.816 Spondylosis without myelopathy or radiculopathy, lumbar region; M48.062 Spinal stenosis, lumbar region with neurogenic claudication; D17.79 Benign lipomatous neoplasm of other sites; Z98.890 Other specified postprocedural states
CPT/HCPCS: 36415; 72158; 76376; 82565; 84520; A9576

== ENCOUNTER → 2019-03-23 12:42 | Outpatient (CLI) | payer MEDICARE, SELFPAY ==
--- NOTE | 2019-03-23 12:45 | CT_ITS ---
CT lung screening EXAM: CT LUNG LOW DOSE WO CONTRAST HISTORY: Greater than 50 pack-year smoking history, asymptomatic for lung cancer ITS.REASON: CURRENT TOBACCO USE ORDERING PHYSICIAN: Yosvany Dutton MD PATIENT AGE: 58 years COMPARISON: 08/02/2017 TECHNIQUE: The exam was performed on a GE Light Speed [address] scanner using 2.90 mGy CTDI. A low dose helical CT CHEST was performed on a multi-detector scanner. All CT scans at the facility use one or more dose reduction, viz: automated exposure control, ma/kV adjustment per patient size (including targeted exams where dose is matched to indication, i.e. head), or iterative reconstruction technique. The LDCT was performed in a facility that meets the criteria for the screening program. Data regarding this exam was submitted to ACR which is an approved registry. The order for this exam indicates that it came as a result of a lung cancer screening counseling shard decision-making visit that included all the elements required of such a visit including smoking cessation. The radiologist interpreting this exam meets the CMS criteria for the LDCT lung cancer screening program. The exam is reported using the Lung-RADS classification scale and reported to the ACR registry. NOTE: This study was performed for the specific purposes of lung cancer screening and is not an alternative to diagnostic chest CT. RADIATION DOSE: CTDI vol(CT dose Index-volume) = 2.90mG DLP (Dose Length Product) = 107.59 mGcm FINDINGS: There are centrilobular and panlobular emphysematous changes. Mild coronary artery calcification noted. There are scattered areas of scarring with pulmonary fibrotic changes with prominent paraseptal emphysematous change. A 10 mm nodular opacity is present in the right lung base posterior laterally not readily apparent on the previous exam but could be related to some subpleural atelectatic or fibrotic change. 6 month follow-up suggested. There is a stable subpleural nodule left upper lobe anterior laterally at 5 mm. Stable nodular opacity noted along the major fissure on the left. There is an azygos fissure is normal variant. IMPRESSION: 1. Lung RADS Category: 3, probably benign 2. Other findings: Centrilobular, panlobular, and paraseptal emphysema with coronary artery calcifications and scattered areas of fibrosis RECOMMENDATIONS: [address] follow-up
== END ==
PROVIDERS: PCP Nurse Practitioner Family; Visit Provider Internal Medicine
DX: Z12.2 Encounter for screening for malignant neoplasm of respiratory organs (principal); Z87.891 Personal history of nicotine dependence; J43.9 Emphysema, unspecified
CPT/HCPCS: 94618

== ENCOUNTER → 2019-04-10 10:13 | Outpatient (CLI) | payer MEDICARE, SELFPAY ==
--- NOTE | 2019-04-10 10:23 | XR_ITS ---
PROCEDURE: XR FOOT WT BEARING LT 3V CLINICAL INDICATION: pain Are dorsal foot pain following injury COMPARISON: No exams were available for comparison FINDINGS: No fracture or dislocation. No lytic or blastic change. There is normal mineralization. Mild to moderate hallux valgus with bunion formation and osteoarthritis of the 1st metatarsophalangeal joint. Other findings:Pes planus IMPRESSION: No acute fracture. Pes planus with hallux valgus Dictated by: Fidencio Rand MD 04/10/2019 11:15 Signed by: <Electronically signed by Fidencio Rand MD in [place]> 04/10/2019 11:15
== END ==
PROVIDERS: PCP Nurse Practitioner Family; Visit Provider Podiatrist
DX: M79.672 Pain in left foot (principal)
CPT/HCPCS: 73630

== ENCOUNTER → 2019-04-10 11:43 | Outpatient (POV) | payer MEDICARE, SELFPAY | PROVIDERS: Visit Provider Internal Medicine | DX: Z00.00 Encounter for general adult medical examination without abnormal findings (principal) ==

== ENCOUNTER 2019-04-25 10:00 | Outpatient (RCR) | payer MEDICARE, SELFPAY | END 2019-04-25 11:30 | disposition home or self-care (01) | LOC: PT.CARL 10:00 | PROVIDERS: PCP Nurse Practitioner Family; Visit Provider Neurological Surgery | DX: M54.5 Low back pain (principal); M51.36 Other intervertebral disc degeneration, lumbar region; Z98.890 Other specified postprocedural states | CPT/HCPCS: 97010; 97012; 97014; 97110; 97163; G0283 ==

== ENCOUNTER → 2019-04-26 14:00 | Outpatient (CLI) | payer MEDICARE, SELFPAY ==
--- NOTE | 2019-04-26 | CA_ITS ---
APPROVED REPORT Bilateral Lower Extremity Venous Study for DVT. Artist Model: MANOJ Indications Current Smoker Patient stumped her left toes 3-4 weeks ago. She states since this time her leg/calf has been swelling and painful. Risk Factors Trauma Obesity Current Smoker Vein Imaging CFV (L): compressive, spontaneous, phasic, augmentation FEM (L): compressive, spontaneous, phasic, augmentation POP (L): compressive, spontaneous, phasic, augmentation PTV (L): compressive, spontaneous, phasic, augmentation GSV (L): compressive, spontaneous, phasic, augmentation SSV (L): compressive, spontaneous, phasic, augmentation Peroneals (L):compressive, spontaneous, phasic, augmentation GAS (L): compressive, spontaneous, phasic, augmentation Findings No evidence of DVT or superficial thrombophlebitis in the veins scanned of the left lower extremity. Conclusion No evidence of DVT or superficial thrombophlebitis in the veins scanned of the left lower extremity. Electronically signed by : Fidencio Rand MD 04/27/2019 07:39:36
== END ==
PROVIDERS: PCP Nurse Practitioner Family; Visit Provider Podiatrist
DX: M79.605 Pain in left leg (principal); R09.89 Other specified symptoms and signs involving the circulatory and respiratory systems; I89.0 Lymphedema, not elsewhere classified
CPT/HCPCS: 93971

== ENCOUNTER → 2019-05-03 07:52 | Outpatient (CLI) | payer MEDICARE, SELFPAY ==
--- NOTE | 2019-05-03 | CA_ITS ---
APPROVED REPORT EXAM: Comprehensive 2D, Doppler, and color-flow Echocardiogram Director Workers Compensation: Ignacia Interiano RT(R) Ht: 5 ft 11 in Wt: 268lbs BSA: 2.39 BP: 161/68 mmHg Indications: COPD, Shortness of Breath, Obesity, Hyperlipidemia, Hypertension/HDD 2D Dimensions LVOT 2.40 cm (M/F) 1.5-2.5 M-Mode Dimensions RVDd 3.00 cm (0.9-2.6) LA Diam 4.10 cm (1.9-4.0) LVDd 5.00 cm (3.5-5.7) Ao Diam 2.90 cm (2.0-3.7) LVDs 3.40 cm (3.5-5.7) AV Cusp 2.10 cm (1.5-2.6) IVSd 0.90 cm (0.6-1.1) PWd 0.90 cm (0.6-1.1) EF (Teich) 59.80% FS 32.00% EDV (Teich) 118.00 mL ESV (Teich) 47.40 mL LV Diastology E/A Ratio 0.7 MED E' 6.85 (< 7 cm/sec) E'/MED E' Ratio 10.90 (>14) LAT E' 11.00 (<10 cm/sec) E/LAT E' Ratio 6.80 (>14) Mitral Valve MV E Max Tree. 75.00 (40-130 cm/s) MV A Velocity 109.00 (40-130 cm/s) E/A Ratio 0.70 Left Ventricle Left atrium is mildly enlarged, left ventricle is normal size, mild concentric left ventricular hypertrophy, visually estimated ejection fraction of 55% with no regional wall motion abnormality, grade 1 diastolic dysfunction seen without tissue Doppler evidence of raise left atrial pressure. Right Ventricle Right atrium and right ventricular mildly enlarged with normal contractility. Aortic Valve Aortic valve is minimally thickened and fibrosed, there is no aortic stenosis aortic insufficiency. Mitral Valve Mitral valve is grossly normal, there is mild mitral regurgitation. Tricuspid Valve Tricuspid valve is grossly normal, there is mild tricuspid regurgitation Pulmonic Valve Pulmonic valve is poorly visualized. Great Vessels Aortic root is normal size. Pericardium No significant pericardial effusion noted. Conclusion 1. Mild biatrial enlargement, normal left ventricular size, mild concentric left ventricular hypertrophy, visually estimated ejection fraction 55% with no regional wall motion abnormality, grade 1 diastolic dysfunction seen without tissue Doppler evidence of raise left atrial pressure. 2. Mildly enlarged right ventricle with normal contractility. 3. Mild mitral and tricuspid regurgitation. 4. No significant pericardial effusion noted. Electronically signed by : Dallas Gaxiola, 05/04/2019 08:30:41
== END ==
PROVIDERS: PCP Nurse Practitioner Family; Visit Provider Nurse Practitioner
DX: M25.476 Effusion, unspecified foot (principal); R60.0 Localized edema
CPT/HCPCS: 93306

== ENCOUNTER 2019-05-18 09:30 | Outpatient (RCR) | payer MEDICARE, SELFPAY ==
--- NOTE | 2019-05-02 15:25 | HMH.PTOPWND ---
Rehab Outpt Wound Evaluation Rehab OP Wound Evaluation Start: 05/02/19 14:51 Freq: Status: Active Protocol: Document 05/02/19 15:16 PHOSABIHA (Rec: 05/02/19 15:25 PHORNE [id number]) Electronically Signed By Buster Kaiser, PT 05/02/19 15:16 Subjective/History History History Pt is 58 yowf who presents with c/o B LE edema, Left > Right, x ~ 1 mo. She reports she stubbed her toe on a wooden step preceding the swelling. She reports hx of lumbar spine surgery x 2 this year and had only recently finished post-surgical therapy . She reports ~ 1 wk ago she received steroid injection in both knees. She c/o constant pain in B LE, worse with increased edema. She also reports increased numbness/ tingling in the LE and increased tenderness to palpation throughout B lower legs. PMH: HTN, Anxiety, COPD, GERD, HL. Subjective Subjective Currently pain 5/10 in left foot. 3+ pitting edema noted in B lower leg. Lymphedema Eval Classification of Lymphedema Secondary Lymphedema Yes Stemmer's sign Stemmer's Sign no Stage of Lymphedema Lymphedema stages Stage I (Pitting edema, reduces w/ elevation, no fibrosis) Skin Changes Dry Skin Yes Redness Yes Discoloration of Skin Yes Other Changes Yes Pain Scale Pain Scale (0-10) 5 Affected Extremities Areas Affected by Lymphedema/Edema Right Lower Extremity,Left Lower Extremity Manual Lymphatic Drainage Treatment Area MLD Treatment Area Right Lower Extremity,Left Lower Extremity Wound Problems/Impairments Impairments Problems/Impairmments Palpation Tenderness,Impaired Endurance,Impaired Walking, Impaired Recreational Activities,Increased Edema, Lymphedema Present,Subjective C/O Pain,Impaired Self Care/ Self Management Prognosis Rehab Potential Fair Clinical Impression Co
== END 2019-05-18 09:35 | disposition home or self-care (01) ==
LOC: PT 09:30
PROVIDERS: Visit Provider Podiatrist
DX: I89.0 Lymphedema, not elsewhere classified (principal); R60.0 Localized edema
CPT/HCPCS: 97140; 97162; 97760

== ENCOUNTER → 2019-05-18 10:04 | Outpatient (CLI) | payer MEDICARE, SELFPAY ==
--- NOTE | 2019-05-18 10:13 | XR_ITS ---
PROCEDURE: XR CHEST 2V CLINICAL HISTORY: CHRONIC OBSTRUCTIVE PULMONARY DISEASE symptoms of bronchitis for the past 3 weeks, smoking history COMPARISON: CXR CHEST(2 VIEWS-NOT PORTABLE) from 12/04/2014 CXR CHEST(2 VIEWS-NOT PORTABLE) from 08/28/[address] [facility] [address] CHEST W/O CONTRAST from 07/22/2016 CXR2V XR chest 2V from 03/03/2018 FINDINGS: The cardiomediastinal silhouette and pulmonary vascularity are within normal limits. Mild emphysematous changes are seen with hyperlucency of lung galeano and flattening of the hemidiaphragms. There is stable post inflammatory linear scarring in the right upper lobe. There is minimal bilateral basilar atelectasis. There is no pleural fluid. The bony thorax is normal for age. IMPRESSION: Mild COPD and mild bilateral basilar atelectasis Dictated by: Dr. John Stein MD 05/18/2019 11:[address] John Stein MD in [place] 05/18/2019 11:07
== END ==
PROVIDERS: PCP Nurse Practitioner Family; Visit Provider Nurse Practitioner
DX: J44.1 Chronic obstructive pulmonary disease with (acute) exacerbation (principal)
CPT/HCPCS: 71046

== ENCOUNTER → 2019-05-29 07:46 | Outpatient (CLI) | payer MEDICARE, SELFPAY ==
--- NOTE | 2019-05-29 07:48 | MR_ITS ---
PROCEDURE: MR KNEE LT WO CON CLINICAL INDICATION: KNEE PAIN Knee pain with instability COMPARISON: No exams were available for comparison TECHNIQUE: Routine multiplanar multi echo sequences are performed without gadolinium enhancement. FINDINGS: The cruciate ligaments, collateral ligaments, patellar tendon, and quadriceps tendon are intact. There is slight increased T2 signal involving the distal aspect of the quadriceps tendon and the distal aspect of the popliteal tendon consistent with tendinopathy/tendinosis. There is a horizontal tear involving the posterior horn of the medial meniscus. A complex meniscal tear involves the anterior horn of the lateral meniscus with a horizontal component which extends into the body of the lateral meniscus. There appears to be a small flipped meniscal fragment involving the posterior horn of the medial meniscus as seen on the coronal image 18. Series 8. There is some irregular increased T2 signal involving the interspinous region of the proximal tibia. There are mild osteoarthritic changes of the medial and lateral compartment. The patellar cartilage is well preserved. There is mild diffuse subcutaneous edema about the knee. IMPRESSION: 1. There is a horizontal tear involving the posterior horn of the medial meniscus with suspected flipped meniscal fragment along the central aspect of the posterior horn of the medial meniscus 2. There is a complex tear involving the anterior horn of the lateral meniscus with horizontal component of the tear extending into the body and the anterior aspect of the posterior horn of the lateral meniscus. 3. Somewhat irregular increased T2 signal of the inter spinous region of the proximal tibia which could be posttraumatic/bone bruise or even nondisplaced fracture. Subarticular cystic changes are also considered. Dictated by: Fidencio Rand MD 05/30/2019 11:04 Electronically signed by Fidencio Rand MD in [place] 05/30/2019 11:04
== END ==
PROVIDERS: PCP Family Medicine; Visit Provider Orthopaedic Surgery Adult Reconstructive Orthopaedic Surgery
DX: M17.12 Unilateral primary osteoarthritis, left knee (principal)
CPT/HCPCS: 73721

== ENCOUNTER → 2019-06-15 12:45 | Outpatient (CLI) | payer MEDICARE, SELFPAY ==
--- NOTE | 2019-06-15 12:58 | XR_ITS ---
PROCEDURE: XR CHEST 2V CLINICAL HISTORY: COPD,SOB COMPARISON: CXR CHEST(2 VIEWS-NOT PORTABLE) from 12/04/2014 CXR CHEST(2 VIEWS-NOT PORTABLE) from 08/28/2015 CXR2V XR chest 2V from 03/03/2018 XR CHEST 2V from 05/18/2019 FINDINGS: The cardiomediastinal silhouette and pulmonary vascularity are within normal limits. Emphysema/COPD with bullous change in the right upper lobe and areas of scarring once again noted not significantly changed. No lobar consolidation or collapse. Chronic changes are present in the left lung base. No acute bony abnormalities. IMPRESSION: No change COPD/emphysema with bullous changes on the right Dictated by: Fidencio Rand MD 06/15/2019 13:23 Electronically signed by Fidencio Rand MD in [place] 06/15/2019 13:23
== END ==
PROVIDERS: PCP Family Medicine; Visit Provider Family Medicine
DX: J44.1 Chronic obstructive pulmonary disease with (acute) exacerbation (principal); R06.02 Shortness of breath
CPT/HCPCS: 71046

== ENCOUNTER → 2019-07-03 19:33 | Outpatient (CLI) | payer MEDICARE, SELFPAY | PROVIDERS: PCP Family Medicine; Visit Provider Nurse Practitioner Family | DX: G47.33 Obstructive sleep apnea (adult) (pediatric) (principal) | CPT/HCPCS: 95811 ==

== ENCOUNTER → 2019-07-17 14:15 | Outpatient (CLI) | payer MEDICARE, SELFPAY ==
--- NOTE | 2019-07-17 14:18 | US_ITS ---
PROCEDURE: US BREAST RT COMPLETE CLINICAL INDICATION: BILAT BREAST SWELLING Pain and swelling. Patient states she is too sore for mammogram COMPARISON: US BREAST LT COMPLETE from 07/17/2019 FINDINGS: Elongated hyperechoic subcutaneous nodules present at 3 o'clock measuring 3 0.8 cm by 2.3 cm. There is some decreased echogenicity within the central aspect of this region. This is nonspecific and could be due to lipoma. Recommend mammography for further evaluation. IMPRESSION: Indeterminate hyperechoic nodule at 3 o'clock. Suggest mammography for further evaluation BI-RADS category 0. Recommend mammogram for further evaluation Dictated by: Fidencio Rand MD 07/18/2019 16:03 Electronically signed by Fidencio Rand MD in [place] 07/18/2019 16:03
--- NOTE | 2019-07-17 14:18 | US_ITS ---
PROCEDURE: US BREAST LT COMPLETE CLINICAL INDICATION: BILAT BREAST SWELLING Breast pain, recent injury, patient states she is to sore for mammogram COMPARISON: BL US BREAST-LT COMPLETE W/AXILLA from 01/18/2017 FINDINGS: There is a 17 by 7 mm hyperechoic subcutaneous area in the left breast at 10 o'clock near the nipple. No cyst or hypoechoic nodules are evident. IMPRESSION: Hyperechoic nodule at 10 o'clock and could be due to a lipoma. Recommend mammogram for more thorough evaluation. BI-RADS category 0 Recommendations: Bilateral mammogram Dictated by: Fidencio Rand MD 07/18/2019 16:01 Electronically signed by Fidencio Rand MD in [place] 07/18/2019 16:01
== END ==
PROVIDERS: PCP Family Medicine; Visit Provider Nurse Practitioner Family
DX: N63.11 Unspecified lump in the right breast, upper outer quadrant (principal); N63.21 Unspecified lump in the left breast, upper outer quadrant
CPT/HCPCS: 76641

== ENCOUNTER → 2019-08-14 09:08 | Outpatient (CLI) | payer MEDICARE, SELFPAY ==
--- NOTE | 2019-08-14 09:12 | MM_ITS ---
PROCEDURE: MM DIG MAMM BI DX W/CAD CLINICAL INDICATION: ABN ULTRASOUND Breast nodules on recent ultrasound COMPARISON: [facility] DIG MAMM-SCREEN ARANZA from 05/03/2016 [facility] DIG MAMM-SCREEN ARANZA W/CAD from 06/02/2017 [facility] MM Dig screening mamm BI w/CAD from 07/11/2018 US BREAST LT COMPLETE from 07/17/2019 US BREAST RT COMPLETE from 07/17/2019 TECHNIQUE: Routine mammographic images performed FINDINGS: Mostly fatty replaced fibroglandular tissue with scattered areas of asymmetry similar to the previous exam. No malignant appearing mass or malignant-appearing microcalcification evident. There is some slight increased subcutaneous density in the medial aspect of the right breast. Prominent skin fold artifact is present in the left MLO. Subcutaneous nodular opacities noted in the lateral aspect of the left breast and in the medial aspect of the left breast measuring 18 mm laterally and 17 mm medially. These areas are oval in nature and contains some interspersed fat density. The medial nodule may account for the ultrasound abnormality noted on 07/17/2019. This could be due to areas of complex lipomas or areas of inflammation. Please correlate with physical exam. IMPRESSION: Scattered subcutaneous areas of increased density and may be related to areas of inflammation. At least 2 areas on the left 1 outer and 1 inner and could be due to complex lipomas or areas of inflammation. Probably benign. Recommend six-month follow-up. BI-RAD Category: 3 Probably Benign Finding Short Term Follow-up FOLLOW-UP: 6M 6Month Follow-up (A letter has been sent to the patient regarding results of the study.) Dictated by: Fidencio Rand MD 08/25/2019 08:58 Electronically signed by Fidencio Rand MD in [place] 08/25/2019 08:58
== END ==
PROVIDERS: PCP Family Medicine; Visit Provider Nurse Practitioner Family
DX: R92.8 Other abnormal and inconclusive findings on diagnostic imaging of breast (principal)
CPT/HCPCS: 77066

== ENCOUNTER → 2019-08-21 14:04 | Outpatient (POV) | payer MEDICARE, SELFPAY | PROVIDERS: Visit Provider Dermatology | DX: Z00.00 Encounter for general adult medical examination without abnormal findings (principal) ==

== ENCOUNTER → 2019-10-25 11:07 | Outpatient (CLI) | payer MEDICARE, SELFPAY ==
--- NOTE | 2019-10-25 11:19 | XR_ITS ---
PROCEDURE: XR CHEST 2V CLINICAL HISTORY: COPD Shortness of air, smoker COMPARISON: XR CHEST 2V from 06/15/2019 FINDINGS: The cardiomediastinal silhouette and pulmonary vascularity are within normal limits. COPD with fibrotic change/scarring in the right apex Chronic changes in the lung bases with superimposed increased density in the left lung base which may be due to superimposed infiltrate. Scarring is also present in the left upper lobe with biapical pleural thickening IMPRESSION: COPD with chronic changes with patchy infiltrate in the left lung base Dictated by: Fidencio Rand MD 10/25/2019 16:01 Electronically signed by Fidencio Rand MD in [place] 10/25/2019 16:01
[2019-10-25 11:55] LABS: Basophils % 0.2 % (0.1-2.0); Eosinophils # 0.2 K/mm3 (0.0-0.4); Eosinophils % 1.6 % (0.1-12.0); Hematocrit 41.9 % (37.0-47.0); Hemoglobin 13.2 g/dL (12.2-16.2); Lymphocytes # 1.8 K/mm3 (0.7-4.5); Lymphocytes % 13.8 % (10-50); Mean Corpuscular HGB Conc 31.5 g/dL (31.8-35.4); Mean Corpuscular Hemoglobin 24.7 pg (27.0-31.2); Mean Corpuscular Volume 78.4 fl (81-99); Mean Platelet Volume 8.8 fl (7.4-10.4); Monocytes # 0.8 K/mm3 (0.1-1.0); Monocytes % 5.9 % (1.7-9.3); Neutrophils # 10.1 K/mm3 (1.8-7.8); Neutrophils % 78.4 % (37.0-80.0); Platelet Count 268 K/mm3 (142-424); Red Blood Count 5.34 M/mm3 (4.20-5.40); Red Cell Distribution Width 17.2 % (11.5-17.5); White Blood Count 12.8 K/mm3 (4.8-10.8)
== END ==
PROVIDERS: Visit Provider Nurse Practitioner Family
DX: J44.0 Chronic obstructive pulmonary disease with (acute) lower respiratory infection (principal)
CPT/HCPCS: 36415; 71046; 85025

== ENCOUNTER → 2019-10-29 07:47 | Outpatient (CLI) | payer MEDICARE, SELFPAY ==
--- NOTE | 2019-10-29 07:50 | CT_ITS ---
PROCEDURE: CT SINUS WO CON CLINICAL HISTORY: ACUTE RECURRENT SINUSITIS, HX SINUS SURGERY COMPARISON: None TECHNIQUE: Axial images obtained with sagittal and coronal reformats. All CT scans at the facility use one or more dose reduction, viz: automated exposure control, ma/kV adjustment per patient size (including targeted exams where dose is matched to indication, i.e. head), or iterative reconstruction technique. FINDINGS: No sinus air-fluid level mass or significant mucosal thickening apparent. There is mild rightward nasal septal deviation. The ostiomeatal complexes are patent. The orbits have an unremarkable appearance. Small amount fluid is present in the left mastoid air cell inferiorly the. There is moderate TMJ arthropathy bilaterally IMPRESSION: 1. Unremarkable sinuses. 2. Minimal amount fluid in left mastoid sinus. 3. Rightward nasal septal deviation. 4. Bilateral TMJ arthropathy Dictated by: Fidencio Rand MD 10/29/2019 09:31 Electronically signed by Fidencio Rand MD in [place] 10/29/2019 09:31
== END ==
PROVIDERS: PCP Nurse Practitioner Family; Visit Provider Nurse Practitioner Family
DX: J01.01 Acute recurrent maxillary sinusitis (principal); Z98.890 Other specified postprocedural states
CPT/HCPCS: 70486

== ENCOUNTER → 2019-11-12 08:09 | Outpatient (CLI) | payer MEDICARE, SELFPAY ==
[2019-11-12 14:13] LABS: Potassium 3.4 mmoL/L (3.5-5.1)
== END ==
PROVIDERS: Visit Provider Nurse Practitioner Family
DX: E87.6 Hypokalemia (principal)
CPT/HCPCS: 36415; 84132

== ENCOUNTER → 2019-12-11 11:03 | Outpatient (CLI) | payer MEDICARE, SELFPAY ==
--- NOTE | 2019-12-11 11:09 | XR_ITS ---
PROCEDURE: XR LUMBAR SPINE MIN 4V CLINICAL INDICATION: RT LBP Low back pain COMPARISON: No exams were available for comparison FINDINGS: Mild lumbar scoliosis convex left. Normal alignment. Degenerative disc disease is present from L3-S1. No fracture or dislocation. No lytic or blastic change. There is generalized vascular calcification. IMPRESSION: Degenerative disc disease Dictated by: Fidencio Rand MD 12/11/2019 17:43 Electronically signed by Fidencio Rand MD in [place] 12/11/2019 17:43
== END ==
PROVIDERS: PCP Nurse Practitioner Family; Visit Provider Nurse Practitioner Family
DX: M54.5 Low back pain (principal)
CPT/HCPCS: 72110

== ENCOUNTER → 2019-12-18 08:24 | Outpatient (CLI) | payer MEDICARE, SELFPAY ==
[2019-12-18 14:20] LABS: Potassium 2.7 mmoL/L (3.5-5.1)
== END ==
PROVIDERS: Visit Provider Nurse Practitioner Family
DX: E87.6 Hypokalemia (principal)
CPT/HCPCS: 36415; 84132

== ENCOUNTER → 2020-01-07 15:31 | Outpatient (CLI) | payer MEDICARE, SELFPAY ==
[2020-01-07 15:50] LABS: Basophils # 0.1 K/mm3 (0-0.2); Basophils % 0.8 % (0.1-2.0); Eosinophils # 0.3 K/mm3 (0.0-0.4); Eosinophils % 1.7 % (0.1-12.0); Hematocrit 40.6 % (37.0-47.0); Hemoglobin 12.7 g/dL (12.2-16.2); Lymphocytes # 2.4 K/mm3 (0.7-4.5); Lymphocytes % 14.1 % (10-50); Mean Corpuscular HGB Conc 31.3 g/dL (31.8-35.4); Mean Corpuscular Hemoglobin 23.4 pg (27.0-31.2); Mean Corpuscular Volume 74.9 fl (81-99); Mean Platelet Volume 9.1 fl (7.4-10.4); Monocytes % 6.1 % (1.7-9.3); Neutrophils % 77.4 % (37.0-80.0); Platelet Count 334 K/mm3 (142-424); Red Blood Count 5.42 M/mm3 (4.20-5.40); Red Cell Distribution Width 18.4 % (11.5-17.5); White Blood Count 16.8 K/mm3 (4.8-10.8)
[2020-01-07 15:53] LABS: MANUAL DIFFERENTIAL MANUAL DIFFERENTIAL (MANUAL DIFF)
[2020-01-07 16:32] LABS: Chloride 91 mmol/L (98-107); Potassium 3.2 mmoL/L (3.5-5.1); Sodium 132 mmol/L (136-145)
[2020-01-07 16:35] LABS: Alanine Aminotransferase 20 U/L (12-78); Albumin Level 3.7 g/dl (3.5-5.0); Albumin/Globulin Ratio 1.1 (1.1-1.8); Alkaline Phosphatase 128 U/L (38-126); Anion Gap 12.2 mEq/L (5-15); Aspartate Amino Transferase 24 U/L (14-36); Blood Urea Nitrogen 11 mg/dl (7-17); Carbon Dioxide 32 mmol/L (22.0-30.0); Estimated Glomerular Filt Rate 103 ml/min (>60); GFR (African American) 124 ML/MIN (>60); Globulin 3.3 g/dL (1.3-3.2)
[2020-01-07 16:36] LABS: Calcium 9.2 mg/dl (8.4-10.2); Glucose 123 mg/dl (74-100)
[2020-01-07 16:40] LABS: Bilirubin,Total < 0.1 mg/dl (0.2-1.3)
[2020-01-07 16:53] LABS: Free T4 (Free Thyroxine) 1.39 ng/dl (0.78-2.19)
[2020-01-07 17:08] LABS: Thyroid Stimulating Hormone 1.29 uIU/mL (0.465-4.68)
[2020-01-07 20:13] LABS: Lymphocytes % 17 % (10-50); Monocytes % 6 % (2-9); Neutrophils % 77 % (42-76); Total Cells Counted 100
[2020-01-07 20:14] LABS: Anisocytosis 1+; Hypochromasia 2+; Microcytosis 1+; Platelet Estimate Normal
[2020-01-09 11:27] LABS: Triiodothyronine (T3) Free 3.3 pg/mL (2.0-4.4)
== END ==
PROVIDERS: Visit Provider Nurse Practitioner Family
DX: R53.1 Weakness (principal); E87.6 Hypokalemia; E03.9 Hypothyroidism, unspecified
CPT/HCPCS: 36415; 80053; 84439; 84443; 84481; 85007; 85025

== ENCOUNTER → 2020-01-11 09:21 | Outpatient (CLI) | payer MEDICARE, SELFPAY ==
--- NOTE | 2020-01-11 09:33 | US_ITS ---
APPROVED REPORT Exam Type: Lower Extremity Segmental Pressures Harness Tier: Tricia Landin CRT Indications Claudication: Rest Pain: Numbness/Tingling Current Smoker Risk Factors Hypertension Hyperlipidemia Obesity Current Smoker Pressures/Indices Right Indices Left Indices Brachial 140.00 mmHg Brachial 130.00 mmHg Low Thigh 177.00 mmHg 1.26 Low Thigh 168.00 mmHg 1.20 Calf 161.00 mmHg 1.15 Calf 171.00 mmHg 1.22 Ankle(PT) 169.00 mmHg 1.21 Ankle(PT) 182.00 mmHg 1.30 Ankle(DP) 161.00 mmHg 1.15 Ankle(DP) 180.00 mmHg 1.29 Digit 108.00 mmHg 0.77 Digit 123.00 mmHg 0.88 Findings R DEO 1.2 L DEO 1.3 R TBI 0.8 L TBI 0.9 NORMAL WAVEFORMS NORMAL PULSES Conclusion R DEO 1.2 L DEO 1.3 R TBI 0.8 L TBI 0.9 NORMAL WAVEFORMS NORMAL PULSES SLIGHTLY ELEVATED LEFT DEO SUGGESTING VESSEL HARDENING Electronically signed by : Fidencio Rand MD 01/11/2020 16:32:34
--- NOTE | 2020-01-11 10:09 | MR_ITS ---
PROCEDURE: MR LUMBAR SPINE WO CON CLINICAL INDICATION: LOW BACK PAIN RADIATING TO LOWER EXTREMITY Low back pain with bilateral feet numbness COMPARISON: SPLUMBWO MR lumbar spine wo con from 12/19/2017 TECHNIQUE: Standard multiplanar multiecho sequences are performed without contrast. 3-D MIP and myelographic images are also rendered and reviewed FINDINGS: There is normal alignment. The spinal cord ends at the L1 level. T12-L1: Small lipoma of the T12 vertebral body. The disc space has an unremarkable appearance. L1-L2: Mild degenerative disc disease with minimal bulging disc. L2-L3: Mild degenerative disc disease with minimal bulging disc. The nerve roots are situated somewhat toward the left within the thecal sac at this area and are bunched together. This did not have a similar appearance on the previous exam L3-L4 degenerative disc disease with bulging disc along with facet ligamentum hypertrophy. The bulging disc is somewhat eccentric toward the right with broad based right foraminal and lateral disc osteophyte complex with moderate right lateral recess and severe right-sided foraminal narrowing which has somewhat progressed since the previous exam. The nerve roots also appear somewhat clumped together at this level become a normal more inferior. L4-5: Degenerative disc disease with bulging disc with endplate hypertrophic change along with facet and ligamentum hypertrophy with bilateral lateral recess narrowing and severe bilateral foraminal narrowing left greater than right. The foraminal narrowing has progressed compared to the previous exam. L5-S1: Degenerative disc disease with bulging disc with facet ligamentum hypertrophy and with moderate bilateral foraminal narrowing. Postsurgical changes are present at L4-L5 and S1 from prior laminectomy. No extruded herniated disc or bony canal stenosis. IMPRESSION: 1. Abnormal MRI of the lumbar spine with multilevel lumbar spondylosis with degenerative disc disease, bulging disc, facet ligamentum hypertrophy with resultant lateral recess and areas of severe foraminal narrowing on the right at L3-L4 and bilateral at L4-5. These areas of foraminal narrowing has increased compared to the previous exam. Please see above for detailed description at each level. 2. 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 Postsurgical changes at L4-L5 and S1 4. No extruded herniated disc or canal stenosis Dictated by: Fidencio Rand MD 01/16/2020 11:38 Electronically signed by Fidencio Rand MD in [place] 01/16/2020 11:38
== END ==
PROVIDERS: PCP Nurse Practitioner Family; Visit Provider Nurse Practitioner Family
DX: M79.662 Pain in left lower leg (principal); M79.661 Pain in right lower leg; M54.5 Low back pain; Z98.890 Other specified postprocedural states; R09.89 Other specified symptoms and signs involving the circulatory and respiratory systems
CPT/HCPCS: 72148; 76376; 93923

== ENCOUNTER → 2020-01-31 13:34 | Outpatient (CLI) | payer MEDICARE, SELFPAY ==
--- NOTE | 2020-01-31 13:37 | MM_ITS ---
PROCEDURE: MM DIG MAMM DX UNILAT LT CAD Digital Breast Tomosynthesis Included Bilateral breast ultrasound complete with axilla CLINICAL INDICATION: ABN MAMM Follow-up palpable left breast nodules COMPARISON: [facility] DIG MAMM-SCREEN ARANZA W/CAD from 06/02/2017 [facility] MM Dig screening mamm BI w/CAD from 07/11/2018 US BREAST LT COMPLETE from 07/17/2019 US BREAST RT COMPLETE from 07/17/2019 MM DIG MAMM BI DX W/CAD from 08/14/2019 US BREAST LT COMPLETE from 01/31/2020 US BREAST RT COMPLETE from 01/31/2020 TECHNIQUE: Standard images performed of the left breast along with spot compression views, tomography, and left breast ultrasound FINDINGS: There is mostly fatty replaced fibroglandular tissue. There is a benign-appearing 13 mm nodule with low-density centrally in the upper inner aspect of the left breast. Additional smaller benign-appearing nodules are also noted. In addition, there is a 14 mm benign-appearing nodule in the lateral aspect of the left breast corresponding to the palpable abnormality also containing low density centrally. No malignant appearing mass or malignant-appearing microcalcification. Left breast ultrasound: The 11 mm subcutaneous nodule in the outer aspect of the left breast at 3 o'clock isoechoic with a peripheral area of slight decreased echogenicity. There is some decreased through transmission of sound. This corresponds to the lateral nodule noted on the mammogram and may represent a sebaceous cyst or hamartoma. A similar appearing nodules present at 10 o'clock measuring 12 mm. This nodule is isoechoic with some decreased through transmission of sound well-circumscribed and in the subcutaneous tissue similar to the previous exam. Right breast ultrasound: Isoechoic nodule noted at 3 o'clock measuring 20 x 7 mm previously 30 x 8 mm. IMPRESSION: Benign findings of the left breast. There are at least 2 well-circumscribed nodules with low-density centers corresponding to isoechoic nodules with decreased through transmission of sound at 3 o'clock and at 10 o'clock consistent with sebaceous cyst or hamartoma/complex lipomas. No malignant appearing mass or malignant-appearing microcalcification. The lesion at 3 o'clock does have a peripheral area of slight decreased echogenicity and may be due to some underlying inflammation. Suggest continued six-month follow-up of both breasts to put patient back on screening schedule BI-RAD Category: 2 Benign Finding(s) FOLLOW-UP: 6M 6Month Follow-up (A letter has been sent to the patient regarding results of the study.) Dictated by: Fidencio Rand MD 02/07/2020 15:26 Electronically signed by Fidencio Rand MD in [place] 02/07/2020 15:26
== END ==
PROVIDERS: PCP Nurse Practitioner Family; Visit Provider Nurse Practitioner Family
DX: R92.8 Other abnormal and inconclusive findings on diagnostic imaging of breast (principal)
CPT/HCPCS: 76641; 77061; 77065; G0279

== ENCOUNTER 2020-03-13 09:00 | Outpatient (RCR) | payer MEDICARE, SELFPAY | END 2020-03-13 09:05 | disposition home or self-care (01) | LOC: PT 09:00 | PROVIDERS: PCP Nurse Practitioner Family; Visit Provider Neurological Surgery | DX: M54.5 Low back pain (principal); M51.36 Other intervertebral disc degeneration, lumbar region | CPT/HCPCS: 97010; 97012; 97014; 97035; 97110; 97163; G0283 ==

== ENCOUNTER → 2020-03-17 08:41 | Outpatient (POV) | payer MEDICARE, SELFPAY ==
[2020-03-17 09:01] VITALS: BP 141/72; PULSE 84; RESP 18; TEMP 36.8; O2SAT 98; BMI 36.9
--- NOTE | 2020-03-17 09:12 | HMH.PAINSOAP ---
[facility] Pain Management SOAP Note Subjective:: Patient is a 59-year-old white female who presents today for follow-up. She has been treated for low back pain with lumbar radiculopathy symptoms. Patient was seen in the clinic approximately 2 years ago for a lumbar epidural steroid injection. She reports that she had severe pain following the epidural. As result, she started seeing Dr. Young. Dr. Young did schedule her for surgery and she did undergo surgical intervention at L4-L5. She is continued to have pain since having her surgery. She says that her pain is worse in her mid to low back. She says that standing and walking causes worsening pain. She did have a recent MRI that does show significant changes from her previous MRI. Patient does rate her pain at a 5 out of 10 today. Patient says she does not want to proceed with surgery, however, she does not want any type of injective therapies. Patient has tried physical therapy and says that it made her pain worse. She did try physical therapy prior to and after her surgical intervention. She has tried using ice and heat as well as anti-inflammatories. Review of Systems General: No recent weight changes, no fever, no sleep disturbances Respiratory: No cough, no shortness of air, no recurring pulmonary infections Cardiovascular/peripheral vascular: No chest pain, no palpitations, no edema, no shortness of breath Gastrointestinal: No new onset incontinence, normal bowel movements reported Genitourinary: No new onset incontinence Musculoskeletal: Low back pain, bilateral lower extremity pain Psychiatric: Normal mood/affect Neurological: [Denies weakness in extremities], [denies balance issues] Objective:: Physical exam General: Alert and oriented x3, no acute distress, pleasant and cooperative, [on room air] Lungs: Respirations even and unlabored, symmetrical chest expansion Eyes: PERRL Musculoskeletal: Flexion and extension of lumbar spine somewhat guarded secondary to pain, deep tendon reflexes normal, strength in upper and lower extremities [5/5], [abnormal gait noted] Neurological: Speech clear, stitch bonding 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 She now did discuss going forward we would need to perform an epidural before proceeding with any other interventions. She and I did discuss possible spinal cord stimulation. She does have an appointment with Dr. Young in April. She would like to follow-up with us after her appointment with him. She has been instructed to contact the clinic if she has any concerns before her next appointment. The patient and I specifically discussed risk factors for COVID19. These risks include, but are not limited to age greater than 60, heart or lung disease, diabetes, immunosuppression, and travel. We also discussed NSAIDs may worsen COVID19 infection or symptoms. Patient should not use NSAIDs to treat COVID19 signs or symptoms. Patient was also informed that any type of corticosteroid of any form (oral or injection) will decrease the patient's immune system response and may increase the likelihood of COVID19 infection [address] symptoms[address]. Shields has reviewed this note and agrees with this plan of care. This note was dictated using voice recognition software and make contain errors or omissions. [facility] History I have reviewed the patient's past medical history: Yes Medical History: Reports:: Anxiety, Chronic Obstructive Pulmonary Disease (COPD), Gastroesophageal Reflux Disease(GERD), Hyperlipidemia, Hypertension Denies:: Diabetes Mellitus Type 2, Seizures *Have you ever received a pneumonia vaccine?: Yes *Have you received a flu vaccine this season?: Yes Other Medical History: Reports: Hypothyroidism, Other. Denies: Blood Transfusion Reaction Other Surgeries: Yes
== END ==
PROVIDERS: PCP Nurse Practitioner Family; Visit Provider Clinical Nurse Specialist Family Health
DX: M51.16 Intervertebral disc disorders with radiculopathy, lumbar region (principal); M12.88 Other specific arthropathies, not elsewhere classified, other specified site
CPT/HCPCS: 99212

== ENCOUNTER → 2020-03-25 10:00 | Outpatient (CLI) | payer MEDICARE, SELFPAY | PROVIDERS: PCP Nurse Practitioner Family; Visit Provider Nurse Practitioner Family | DX: Z03.818 Encounter for observation for suspected exposure to other biological agents ruled out (principal) | CPT/HCPCS: U0003 ==

== ENCOUNTER → 2020-04-14 09:00 | Outpatient (POV) | payer MEDICARE, SELFPAY ==
[2020-04-14 09:12] VITALS: BP 148/54; PULSE 85; RESP 18; TEMP 36.8; O2SAT 99; BMI 35.5
--- NOTE | 2020-04-14 10:03 | HMH.PAINSOAP ---
[facility] Pain Management SOAP Note Subjective:: Patient is a pleasant 59-year-old white female who presents today for follow-up. She is being treated for pain secondary to postlaminectomy syndrome. She has been seen in our clinic before and got an epidural injection to which she states it hurt her quite badly. Patient states that she is here to discuss a pain pump. I discussed with her that we would need to cover all of her options and evaluate her pain prior to making any decisions moving forward with a implantable device. Patient's pain is actually lower on the right side over the SI joint. She does have radiation into her groin. I did discuss potentially an SI joint block and fusion in the future. Patient does have a positive Tavon test Fani's test and SI joint compression test on the right side. Patient is also complaining of left shoulder pain. ROS General: no recent weight change, no fever, no sleep disturbances Respiratory: no cough, no shortness of air, no recurring pulmonary infections Cardiovascular/Peripheral Vascular: No chest pain, No palpitations, no edema, no shortness of breath. Gastrointestinal: no new onset incontinence, normal bowel movements reported Genitourinary: no new onset incontinence Musculoskeletal: Back pain, leg pain, SI joint pain Psychiatric: normal mood/ affect Neurological: [denies new onset weakness in extremities], [denies new onset balance issues] Objective:: Physical Exam General: Alert and oriented x3, no acute distress, pleasant and cooperative, [on room air] Lungs: Resps E/U, Symmetrical chest expansion, Eyes: PERRL Musculoskeletal: Flexion and extension of lumbar spine somewhat guarded secondary to pain, deep tendon reflexes normal, strength in upper and lower extremities [5/5], [abnormal gait noted] Neurological: speech clear, film library clerk equal, no gross sensory deficits Assessment:: Degenerative disc disease lumbar spine lumbar radiculopathy symptoms and facet arthropathy, sacroiliitis Plan:: We will schedule a right SI joint x-ray along with a left shoulder x-ray. We will potentially move forward with a SI joint injection to see if this is beneficial. She may be a corner lock candidate in the future. She has been instructed to call the office if she has any issues prior to her next appointment. Dr. Shields has reviewed this note and agrees with this plan of care. This note was dictated using voice recognition software and may contain errors or omissions [facility] History I have reviewed the patient's past medical history: Yes Medical History: Reports:: Anxiety, Chronic Obstructive Pulmonary Disease (COPD), Gastroesophageal Reflux Disease(GERD), Hyperlipidemia, Hypertension Denies:: Diabetes Mellitus Type 2, Seizures *Have you ever received a pneumonia vaccine?: Yes *Have you received a flu vaccine this season?: Yes Other Medical History: Reports: Hypothyroidism, Thyroid Disease, Other. Denies: Blood Transfusion Reaction Other Surgeries: Yes: No Previous Surgery, Cardiac Catheterization, Colonoscopy, , Hernia Repair, Hysterectomy-Total, Sinus Surgery, Tubal Ligation Amputation: No Fractures: No - *Social History Smoking Status: Current every day smoker Tobacco Type: cigarettes # Packs/Day (cigarettes): 1 Alcohol Intake: never Substance Use Type: denies use *Occupational Status:: other Housing: house Household Members: family *Travel in the last 8 weeks: None - Psychiatric History Pschychiatric History:: Reports:: Anxiety Family Hx:: Cancer, Coronary Artery Disease, Hypertension
== END ==
PROVIDERS: PCP Nurse Practitioner Family; Visit Provider Clinical Nurse Specialist Family Health
DX: M51.16 Intervertebral disc disorders with radiculopathy, lumbar region (principal); M46.1 Sacroiliitis, not elsewhere classified; M12.88 Other specific arthropathies, not elsewhere classified, other specified site
CPT/HCPCS: 99212

== ENCOUNTER → 2020-04-15 09:46 | Outpatient (CLI) | payer MEDICARE, SELFPAY ==
--- NOTE | 2020-04-15 09:46 | CT_ITS ---
PROCEDURE: CT CHEST WO CON CLINICAL INDICATION: Lung nodule F/w lung nodule, COPD/emphysema, long smoking history COMPARISON: CT [facility] CT CHEST W/O CONTRAST from 07/22/2016 TECHNIQUE: Axial images obtained with sagittal and coronal reformats. All CT scans at the facility use one or more dose reduction, viz: automated exposure control, ma/kV adjustment per patient size (including targeted exams where dose is matched to indication, i.e. head), or iterative reconstruction technique. FINDINGS: HEART AND MEDIASTINAL STRUCTURES: Scattered small mediastinal lymph nodes. Coronary artery calcifications are present. No mediastinal or hilar mass or adenopathy. LUNGS AND PLEURAL SPACES: Centrilobular and paraseptal emphysema. There are scattered areas of scarring. There is an azygos fissure as a normal variant. Pulmonary fibrosis noted in the lung bases with honeycombing. Scattered subpleural and fissural opacities are once again noted not significantly changed. No new nodules are apparent. BONY STRUCTURES: No acute bony abnormalities apparent. UPPER ABDOMEN: Unremarkable. ADDITIONAL FINDINGS: No other significant abnormalities. IMPRESSION: Overall stable CT appearance of the chest. COPD/centrilobular and paraseptal emphysema with pulmonary fibrosis and scattered subpleural and fissural nodules unchanged. Dictated by: Fidencio Rand MD 04/16/2020 08:30 Fidencio Rand MD in [place] 04/16/2020 08:30
--- NOTE | 2020-04-15 09:49 | XR_ITS ---
PROCEDURE: XR SACROILIAC JOINT BI MIN 3V CLINICAL INDICATION: SI PAIN COMPARISON: No exams were available for comparison FINDINGS: The SI joints appear normal bilaterally. There is disc space narrowing at the L4-5 level with prominent lateral osteophytic spurring at the L3-4 and L4-5 level of the lumbar spine.. IMPRESSION: Grossly normal appearing SI joints, moderate degenerative disc disease L3-4 and L4-5 Dictated by: Dr. John Stein MD 04/15/2020 10:40 Dr. John Stein MD in [place] 04/15/2020 10:40
--- NOTE | 2020-04-15 09:50 | XR_ITS ---
PROCEDURE: XR SHOULDER LT MIN 2V CLINICAL INDICATION: SHOULDER PAIN COMPARISON: No exams were available for comparison FINDINGS: The clavicle is intact. There is moderate degenerate change of the AC joint with spurring superiorly and inferiorly. The humeral head and glenoid appear normal. There are no soft tissue calcifications.. IMPRESSION: Degenerate spurring of the AC joint primarily superiorly otherwise negative left shoulder Dictated by: Dr. John Stein MD 04/15/2020 10:38 Dr. John Stein MD in [place] 04/15/2020 10:38
== END ==
PROVIDERS: PCP Nurse Practitioner Family; Visit Provider Internal Medicine Pulmonary Disease
DX: R91.1 Solitary pulmonary nodule (principal); M25.512 Pain in left shoulder; M51.36 Other intervertebral disc degeneration, lumbar region
CPT/HCPCS: 71250; 72202; 73030

== ENCOUNTER → 2020-04-28 10:23 | Outpatient (CLI) | payer MEDICARE, SELFPAY ==
[2020-04-28 15:12] LABS: Coronavirus 19 IgG Antibody Negative (Negative)
[2020-04-28 15:13] LABS: Coronavirus 19 IgM Antibody Positive (Negative)
== END ==
PROVIDERS: PCP Nurse Practitioner Family; Visit Provider Surgery
DX: Z01.818 Encounter for other preprocedural examination (principal)
CPT/HCPCS: 36415; 86328

== ENCOUNTER → 2020-04-28 15:56 | Outpatient (CLI) | payer MEDICARE, SELFPAY | PROVIDERS: PCP Nurse Practitioner Family; Visit Provider Surgery | DX: Z01.818 Encounter for other preprocedural examination (principal); Z12.11 Encounter for screening for malignant neoplasm of colon | CPT/HCPCS: 36415; 86328; U0003 ==

== ENCOUNTER 2020-04-29 07:04 | Day surgery (SDC) | payer MEDICARE, SELFPAY ==
[2020-04-23 11:05] VITALS: BMI 35.9
[2020-04-29 07:33] VITALS: BP 156/83; PULSE 90; RESP 22; TEMP 36.5; O2SAT 95
--- NOTE | 2020-04-29 07:49 | P.PN_ITS ---
[facility] Anesthesia Checklist - Patient Identification Patient Identification: Arm Band - Structural Data Admitted From: Home Planned Operative Procedure/s: colonoscopy Consent for Planned Operative Procedure(s) Verified: Yes Verified Documents: Surgical Consent, History and Physical - NPO Status Verified Time NPO: 00:00 - Additional verifications Anesthesia Reactions: No Hx Blood Transfusions: No Blood Transfusion Reaction: No - Airway Assessment C-Spine Mobility Assessed: Yes (mp2) TMJ Mobility Assessed: Yes Dentition: Edentulous - Neurological Assessment Level of Consciousness: Awake, Alert - Anesthesia Plan Anesthesia Risk discussed: Yes Anesthesia Plan: Verified ASA Class: III Anesthesia Type: MAC [facility] History I have reviewed the patient's past medical history: Yes Medical History: Reports:: Anxiety, Chronic Obstructive Pulmonary Disease (COPD), Gastroesophageal Reflux Disease(GERD), Home Oxygen, Hyperlipidemia, Hypertension Denies:: Cancer, Diabetes Mellitus Type 1, Diabetes Mellitus Type 2, Internal Pacemaker, MRSA, Seizures *Have you ever received a pneumonia vaccine?: Yes *Have you received a flu vaccine this season?: Yes Other Medical History: Reports: Hypothyroidism, Thyroid Disease, Other. Denies: Blood Transfusion Reaction Anesthesia experience/problems:: nac Other Surgeries: Yes: Cardiac Catheterization, Colonoscopy, , Hernia Repair, Hysterectomy-Total, Sinus Surgery, Tubal Ligation. No: Pacemaker Amputation: No Fractures: No - *Social History Smoking Status: Current every day smoker Tobacco Type: cigarettes # Packs/Day (cigarettes): 1 Alcohol Intake: never Substance Use Type: denies use *Occupational Status:: disabled Housing: house Household Members: spouse, children *Travel in the last 8 weeks: None - Psychiatric History Pschychiatric History:: Reports:: Anxiety Family Hx:: Cancer, Coronary Artery Disease, Hypertension
[2020-04-29 08:00] VITALS: O2SAT 92
[2020-04-29 08:59] VITALS: BP 110/68; PULSE 89; RESP 18; TEMP 36.5; O2SAT 94
--- NOTE | 2020-04-29 08:59 | P.PCN_ITS ---
- Procedure: Date: 04/29/20 Patient Date of :: 1960 Procedure Performed:: Total colonoscopy with polypectomy x2 using hot snare and biopsy Indications:: Patient presents for follow-up colonoscopy. She is a 59-year-old female whom I had done initial colonoscopy on 3 years ago for some left lower quadrant abdominal pain evaluation. She was found to have small sessile serrated adenoma near the ileocecal valve along with some hyperplastic polyps. She has been without complaints. Denies rectal bleeding. No family history of colon cancer. Performing Provider:: Brendan Aguayo MD Referring Provider:: None Sedation:: Propofol Procedure:: Patient was taken to endoscopy procedure room. She was positioned in a lateral decubitus position. Adequate intravenous sedation was achieved with anesthesia titration of propofol. Variable stiffness Olympus colonoscope was inserted via the anus. With some minor difficulty due to floppiness of the colon it was advanced to the cecum. Ileocecal valve and appendiceal orifice were clearly identified. Colonoscope was slowly withdrawn through the colon with careful surveillance. In the ascending colon there were 2 sessile possibly serrated adenoma polyps measuring up to about 1 cm each. These were removed using hot snare. Residual polyp of 1 of these was removed with cold snare and biopsy forc eps. It appeared as though the polyps have been removed in their entirety. Colonoscope was slowly withdrawn through the colon with careful surveillance. Once reaching the descending colon was readvanced to the right colon and then withdrawn slowly once again to assess for any polyps. Within the sigmoid colon she had multiple relatively large mouth diverticuli. Within the rectum retroflexion was performed which revealed no evidence of any pathologic internal hemorrhoids. Colonoscope was withdrawn. Findings:: Polyps Sigmoid diverticuli Recommendations:: I would likely advocate a repeat colonoscopy in 1 year due to the early development of polyps and to ensure complete removal of the ascending colon polyps. Complications:: None immediately apparent Estimated blood obtained (mL): 2
[2020-04-29 09:09] VITALS: BP 141/82; PULSE 86; RESP 18; TEMP 36.5; O2SAT 92
[2020-04-29 09:19] VITALS: BP 161/88; PULSE 74; RESP 18; TEMP 36.5; O2SAT 92
[2020-04-29 09:29] VITALS: BP 155/91; PULSE 79; RESP 18; TEMP 36.5; O2SAT 94
== END 2020-04-29 09:29 | disposition home or self-care (01) ==
LOC: OUTP 07:05
PROVIDERS: PCP Nurse Practitioner Family; Visit Provider Surgery
PROC: 0DJD8ZZ Inspection of Lower Intestinal Tract, Via Natural or Artificial Opening Endoscopic (ICD-10-PCS; CPT 45385; principal; 2020-04-29 08:30)
DX: Z12.11 Encounter for screening for malignant neoplasm of colon (principal); Z86.010 Personal history of colon polyps; K63.5 Polyp of colon; K57.32 Diverticulitis of large intestine without perforation or abscess without bleeding; J44.9 Chronic obstructive pulmonary disease, unspecified; F41.9 Anxiety disorder, unspecified; K21.9 Gastro-esophageal reflux disease without esophagitis; I10 Essential (primary) hypertension; E78.5 Hyperlipidemia, unspecified; E03.9 Hypothyroidism, unspecified; Z72.0 Tobacco use; Z99.81 Dependence on supplemental oxygen
CPT/HCPCS: 45385; 88305; J2704

== ENCOUNTER 2020-05-02 08:43 | Day surgery (SDC) | payer MEDICARE, SELFPAY ==
[2020-05-02 09:13] VITALS: BP 177/74; PULSE 83; RESP 18; TEMP 36.6; O2SAT 93; BMI 35.2
[2020-05-02 10:17] VITALS: BP 135/88; PULSE 85
[2020-05-02 10:18] VITALS: BP 140/78; PULSE 84; RESP 18; O2SAT 98
--- NOTE | 2020-05-02 10:21 | P.PCN_ITS ---
- Procedure Date: 05/02/20 Time: 10:21 Anesthesiologist:: Ajit Shields MD Complications:: None Pre-procedure Diagnosis:: Sacroiliitis Post-procedure Diagnosis:: Same Indications for Procedure:: Patient is a pleasant 59-year-old white female who we are treating for low back pain with lumbar radiculopathy symptoms with postlaminectomy syndrome. She is tender over her right SI joint. She has some increasing pain into her right hip and down her right leg. This may be emanating from her right SI joint. She is positive Fani's test on the right side. She has positive SI joint compression test on the right side. She has a positive Tavon test on right side. We will do a right SI joint injection under fluoroscopy to see if this gives her relief of her pain symptoms. This will also allow us to determine if this is the source of her pain. Procedure Details:: Right SI joint injection under fluoroscopy Informed consent was obtained and the risks and benefits of the procedure was going to the patient. Patient was taken to the procedure room. Patient was placed prone on the procedure table. The right hip was prepped using ChloraPrep. The skin and subcutaneous tissues were anesthetized using lidocaine. I placed a 22-gauge spinal needle into the inferior aspect of the right SI joint. Needle placement was confirmed with dye. After this we i njected 5 mL bupivacaine 0.25% and Depo-Medrol 40 mg into the right SI joint. The patient tolerated the procedure well with no complication. Plan and Disposition:: We will follow-up with her in 2 weeks. Will reevaluate symptoms at that time. If she does not get any relief from this injection we may look at her back and consented her for a lumbar epidural steroid injection.
[2020-05-02 10:52] VITALS: BP 146/92; PULSE 82; RESP 18; O2SAT 94
== END 2020-05-02 10:25 | disposition home or self-care (01) ==
LOC: SC.PAINP 08:44
PROVIDERS: PCP Nurse Practitioner Family; Visit Provider Anesthesiology
DX: M46.1 Sacroiliitis, not elsewhere classified (principal); M54.16 Radiculopathy, lumbar region; I10 Essential (primary) hypertension; K21.9 Gastro-esophageal reflux disease without esophagitis; J44.9 Chronic obstructive pulmonary disease, unspecified; E66.9 Obesity, unspecified; Z72.0 Tobacco use; F41.9 Anxiety disorder, unspecified; F32.9 Major depressive disorder, single episode, unspecified; Z68.35 Body mass index [BMI] 35.0-35.9, adult; Z90.710 Acquired absence of both cervix and uterus; Z87.448 Personal history of other diseases of urinary system
CPT/HCPCS: 27096; G0260; J1030; Q9966

== ENCOUNTER → 2020-05-06 08:27 | Outpatient (CLI) | payer MEDICARE, SELFPAY ==
--- NOTE | 2020-05-06 08:29 | CA_ITS ---
APPROVED REPORT Manager House: Linda Jasso RVT Laterality: Bilateral Study Quality: Good Indications: Evaluation for carotid stenosis, left carotid artery bruit present on exam, Dizziness and Vertigo Risk Factors Hypertension: Smoking Doppler Spectral Velocity Analysis ECA (R) 99.30/6.50 cm/s ECA (L) 65.40/2.40 cm/s dICA (R) 128.60/34.20 cm/s dICA (L) 100.20/26.40 cm/s Yvette (R) 74.00/17.80 cm/s Yvette (L) 77.00/15.60 cm/s pICA (R) 85.40/16.40 cm/s pICA (L) 94.60/17.60 cm/s dCCA (R) 65.80/14.10 cm/s dCCA (L) 101.00/19.80 cm/s pCCA (R) 74.90/9.10 cm/s pCCA (L) 94.60/15.50 cm/s Vert (R) 50.00/4.50 cm/s Vert (L) 40.80/12.70 cm/s ICA/CCA 1.95 ICA/CCA 0.99 Findings Study suggests 20-49% stenosis of the right internal cartoid artery unchanged from the 03/15/17 study. Study suggests 20-49% stenosis of the left internal cartoid artery unchanged from the 03/15/17 study. Antegrade flow seen bilateral vertebral arteries. 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 Study suggests 20-49% stenosis of the left internal cartoid artery unchanged from the 03/15/17 study. Antegrade flow seen bilateral vertebral arteries. Electronically signed by : Fidencio Rand MD 05/06/2020 19:47:20
[2020-05-06 11:31] LABS: Chloride 95 mmol/L (98-107); Potassium 3.7 mmoL/L (3.5-5.1); Sodium 140 mmol/L (136-145)
[2020-05-06 11:34] LABS: Anion Gap 10.7 mEq/L (5-15); Blood Urea Nitrogen 11 mg/dl (7-17); Calcium 9.9 mg/dl (8.4-10.2); Carbon Dioxide 38 mmol/L (22.0-30.0); Estimated Glomerular Filt Rate 127 ml/min (>60); GFR (African American) 153 ML/MIN (>60); Glucose 89 mg/dl (74-100)
[2020-05-06 12:10] LABS: Ferritin 13.2 ng/ml (11.1-264)
[2020-05-06 13:26] LABS: Vitamin B12 313 pg/mL (239-931)
[2020-05-06 13:27] LABS: Folate 7.13 ng/mL
== END ==
PROVIDERS: Nurse Practitioner Family; PCP Nurse Practitioner Family; Visit Provider Specialist
DX: I10 Essential (primary) hypertension (principal); R09.89 Other specified symptoms and signs involving the circulatory and respiratory systems; R42 Dizziness and giddiness; E66.9 Obesity, unspecified; G47.33 Obstructive sleep apnea (adult) (pediatric); G62.9 Polyneuropathy, unspecified; M79.7 Fibromyalgia; Z99.89 Dependence on other enabling machines and devices; E83.10 Disorder of iron metabolism, unspecified; G25.81 Restless legs syndrome; E87.6 Hypokalemia
CPT/HCPCS: 36415; 80048; 82607; 82728; 82746; 93880

== ENCOUNTER → 2020-05-20 14:14 | Outpatient (CLI) | payer MEDICARE, SELFPAY ==
--- NOTE | 2020-05-20 14:23 | MR_ITS ---
PROCEDURE: MR HEAD/BRAIN WO CON CLINICAL INDICATION: chronic dizziness with noncontributory workup Dizziness COMPARISON: No exams were available for comparison TECHNIQUE: Routine multiplanar multi echo sequences are performed without gadolinium enhancement. FINDINGS: No midline shift, mass effect, intracranial hemorrhage, hydrocephalus, or acute infarction is evident. The cerebellopontine angles, cerebellum, and brainstem have an unremarkable appearance. There is a small subcortical T2 white matter hyperintensity in the right temporal lobe measuring 4 mm.. The pituitary, optic chiasm, corpus callosum, and craniocervical junction have an unremarkable appearance. There is a small amount of fluid signal intensity in the left mastoid sinus. No paranasal sinus air-fluid level or mucosal thickening apparent. IMPRESSION: 1. No acute finding. 2. There is a single small T2 white matter hyperintensity in the right temporal lobe subcortical region. This is nonspecific and could be due to an ischemic gliotic focus. Follow-up may confirm stability. 3. Minimal amount of fluid in the left mastoid sinus. Dictated by: Fidencio Rand MD 05/21/2020 10:17 Fidencio Rand MD in [place] 05/21/2020 10:17
== END ==
PROVIDERS: PCP Nurse Practitioner Family; Visit Provider Specialist
DX: R42 Dizziness and giddiness (principal)
CPT/HCPCS: 70551

== ENCOUNTER → 2020-05-20 19:30 | Outpatient (CLI) | payer MEDICARE, SELFPAY ==
[2020-05-21 14:26] LABS: Occult Blood,Stool Negative (Negative)
== END ==
PROVIDERS: Visit Provider Nurse Practitioner Family
DX: K63.5 Polyp of colon (principal); K92.1 Melena; R42 Dizziness and giddiness
CPT/HCPCS: 70551; 82272; G0328

== ENCOUNTER → 2020-05-26 08:51 | Outpatient (POV) | payer MEDICARE, SELFPAY ==
[2020-05-26 09:05] VITALS: BP 138/78; PULSE 74; RESP 18; TEMP 36.8; O2SAT 97; BMI 34.4
--- NOTE | 2020-05-26 09:12 | HMH.PAINSOAP ---
[facility] Pain Management SOAP Note Subjective:: Patient is a 59-year-old white female who presents today for follow-up after right SI joint injection. Patient says that she got approximately 70% relief with her right SI joint injection. She is complaining primarily of right hip pain today. Patient says the pain feels like it is in my hip bone . She rates her pain a 5 out of 10 today. Patient says that the pain is worse with sleeping at night and is tender to palpation. She says that she has continued to have some throbbing sensation to her low back area. She says that did undergo epidural steroid injections in the past, however, patient says that the previous physician that administered the injection he had a nerve . She is afraid to undergo any further epidural steroid injections. Patient says that Dr. Shields was not provider that gave the injection at that time. Review of Systems General: No recent weight changes, no fever, no sleep disturbances Respiratory: No cough, no shortness of air, no recurring pulmonary infections Cardiovascular/peripheral vascular: No chest pain, no palpitations, no edema, no shortness of breath Gastrointestinal: No new onset incontinence, normal bowel movements reported Genitourinary: No new onset incontinence Musculoskeletal: Right hip pain, intermittent low back pain Psychiatric: Normal mood/affect Neurological: [Denies weakness in extremities], [denies balance issues] Objective:: Physical exam General: Alert and oriented x3, no acute distress, pleasant and cooperative, [on room air] Lungs: Respirations even and unlabored, symmetrical chest expansion Eyes: PERRL Musculoskeletal: Flexion and extension of lumbar spine somewhat guarded secondary to pain, deep tendon reflexes normal, strength in upper and lower extremities [5/5], [abnormal gait noted] Neurological: Speech clear, director of income tax equal, no gross sensory deficit Assessment:: Right hip pain, chronic low back pain Plan:: Patient is not interested in injections in the spine at this time. She would prefer to undergo a lesser invasive injection. We will proceed with a right intra-articular hip injection. This is where most of her pain is at today. We will see her back in the clinic afterwards to reassess her symptoms. We will also order the patient Lidoderm patches topical daily. The patient and I specifically discussed risk factors for COVID19. These risks include, but are not limited to age greater than 60, heart or lung disease, diabetes, immunosuppression, and travel. We also discussed NSAIDs may worsen COVID19 infection or symptoms. Patient should not use NSAIDs to treat COVID19 signs or symptoms. Patient was also informed that any type of corticosteroid of any form (oral or injection) will decrease the patient's immune system response and may increase the likelihood of COVID19 [address] Shields has reviewed this note and agrees with this plan of care. This note was dictated using voice recognition software and make contain errors or omissions. [facility] History I have reviewed the patient's past medical history: Yes Medical History: Reports:: Anxiety, Chronic Obstructive Pulmonary Disease (COPD), Gastroesophageal Reflux Disease(GERD), Home Oxygen, Hyperlipidemia, Hypertension Denies:: Cancer, Diabetes Mellitus Type 1, Diabetes Mellitus Type 2, Internal Pacemaker, MRSA, Seizures *Have you ever received a pneumonia vaccine?: Yes *Have you received a flu vaccine this season?: Yes Other Medical History: Reports: Hypothyroidism, Sinus Problems, Thyroid Disease, Other. Denies: Blood Transfusion Reaction Other Surgeries: Yes: No Previous Surgery, Cardiac Catheterization, Colonoscopy, , Hernia Repair, Hysterectomy-Total, Sinus Surgery, Tubal Ligation, Other (bladdertuck/ hemrroidectomy). No: Pacemaker Amputation: No Fractures: No - *Social History Smoking Status: Current every day smoker Tobacco Type: cigarettes # Packs/D
== END ==
PROVIDERS: PCP Nurse Practitioner Family; Visit Provider Clinical Nurse Specialist Family Health
DX: M25.551 Pain in right hip (principal); M54.5 Low back pain; G89.29 Other chronic pain
CPT/HCPCS: 99212

== ENCOUNTER 2020-06-06 09:56 | Day surgery (SDC) | payer MEDICARE, SELFPAY ==
[2020-06-06 10:20] VITALS: BP 155/72; PULSE 84; RESP 18; TEMP 36.7; O2SAT 95; BMI 34.8
[2020-06-06 10:42] VITALS: BP 132/85; PULSE 85; RESP 18; O2SAT 98
[2020-06-06 10:43] VITALS: BP 138/85; PULSE 85; RESP 18; O2SAT 98
--- NOTE | 2020-06-06 10:57 | P.PCN_ITS ---
- Procedure Date: 06/06/20 Time: 10:57 Anesthesiologist:: Ajit Shields MD Complications:: None Pre-procedure Diagnosis:: Right-sided hip pain with degenerative osteoarthritis Post-procedure Diagnosis:: Same Indications for Procedure:: This patient is a pleasant 59-year-old white female who we are treating for right-sided sacroiliitis and right-sided hip pain with degenerative osteoarthr itis. She did very well with a right SI joint injection. She still has pain in her right hip when she gets up and walks which radiates down her leg. We will do a right hip intra-articular injection today to help with her pain symptoms. Procedure Details:: Right hip intra-articular injection Informed consent was obtained and the risk and benefits of the procedure were explained to the patient. Right hip was prepped using ChloraPrep. 22-gauge spinal needle was inserted and advanced into the right hip joint. Dye was injected to confirm needle placement. We then injected 5 mL bupivacaine 0.25% and Depo-Medrol 40 mg into the right hip joint. Patient tolerated the procedure well with no complications. Plan and Disposition:: We will follow-up with her in 2 weeks. Will reevaluate symptoms at that time. Given the fact that she has had previous back surgery and continues to have low back pain radiating to the right hip and down the right leg I believe she would be an ideal candidate for spinal cord stimulation. I gave her information on the [employer] spinal cord stimulator system. We will follow-up with her and discuss scheduling and getting approval for spinal cord stimulator trial to help with her low back pain and right leg pain.
[2020-06-06 11:02] VITALS: BP 156/63; PULSE 80; RESP 18; O2SAT 98
== END 2020-06-06 11:03 | disposition home or self-care (01) ==
PROVIDERS: PCP Nurse Practitioner Family; Visit Provider Anesthesiology
DX: M16.11 Unilateral primary osteoarthritis, right hip (principal); I10 Essential (primary) hypertension; K21.9 Gastro-esophageal reflux disease without esophagitis; J44.9 Chronic obstructive pulmonary disease, unspecified; Z90.710 Acquired absence of both cervix and uterus; E78.5 Hyperlipidemia, unspecified; E07.9 Disorder of thyroid, unspecified; Z87.09 Personal history of other diseases of the respiratory system; Z72.0 Tobacco use; M48.061 Spinal stenosis, lumbar region without neurogenic claudication; Z88.8 Allergy status to other drugs, medicaments and biological substances; Z88.5 Allergy status to narcotic agent
CPT/HCPCS: 20610; 77002; J1030; Q9966

== ENCOUNTER → 2020-06-26 08:09 | Outpatient (POV) | payer MEDICARE, SELFPAY ==
[2020-06-26 08:41] VITALS: BP 142/77; PULSE 74; RESP 18; O2SAT 98; BMI 35.1
--- NOTE | 2020-06-26 09:26 | HMH.PAINSOAP ---
[facility] Pain Management SOAP Note Subjective:: Patient is a 59-year-old white female who presents today for follow-up after a right intra-articular knee injection. She is being treated for chronic low back pain as well as chronic hip pain. Patient also has chronic sacroiliitis. Patient reports that she did not get any relief following her right intra-articular knee injection. At her visit at that time, she did discuss with Dr. CASI Cage possible spinal cord stimulation. She has chronic low back pain and has not gotten any relief from conservative therapies. She says that she has tried ice and heat therapies as well as oral medications. She does report that [place] has given her relief in the past, however, patient says she understands she cannot get oral medications long-term. She also tried physical therapy for greater than 6 weeks with no relief. She does continue with home stretching program. Anti-inflammatories were not beneficial for the pain. Patient says she has done a lot of research on the spinal cord stimulator and is interested in proceeding with the psychological evaluation. She has seen a neurosurgeon who has performed surgical intervention to her lumbar spine. She is not considered a surgical candidate per Dr. Young at this time. Review of Systems General: No recent weight changes, no fever, no sleep disturbances Respiratory: No cough, no shortness of air, no recurring pulmonary infections Cardiovascular/peripheral vascular: No chest pain, no palpitations, no edema, no shortness of breath Gastrointestinal: No new onset incontinence, normal bowel movements reported Genitourinary: No new onset incontinence Musculoskeletal: Low back pain chronic hip pain, bilateral lower extremity pain Psychiatric: Normal mood/affect Neurological: [Denies weakness in extremities], [denies balance issues] Objective:: Physical exam General: Alert and oriented x3, no acute distress, pleasant and cooperative, [on room air] Lungs: Respirations even and unlabored, symmetrical chest expansion Eyes: PERRL Musculoskeletal: Flexion and extension of lumbar spine somewhat guarded secondary to pain, deep tendon reflexes normal, strength in upper and lower extremities [5/5], [abnormal gait noted] Neurological: Speech clear, program evaluation consultant equal, no gross sensory deficit Assessment:: Degenerative disc disease lumbar spine with lumbar radiculopathy symptoms, chronic right hip pain, chronic right sacroiliitis Plan:: The patient has tried and failed conservative therapies of physical therapy, home stretching, as well as injective therapy. Patient has had multiple injections and has not gotten relief. She continues with ice and heat therapies and [id number] medications with no relief. She did discuss undergoing a [employer] spinal cord stimulator trial. At this point she is exhausted all conservative measures. We will proceed with a psychological evaluation to determine if the patient is an appropriate candidate for spinal cord stimulation. We will see her back in the clinic after her trial to discuss a further plan of care. The patient has been instructed to contact the clinic if she has any concerns before her next appointment. The patient and I specifically discussed risk factors for COVID19. These risks include, but are not limited to age greater than 60, heart or lung disease, diabetes, immunosuppression, and travel. We also discussed NSAIDs may worsen COVID19 infection or symptoms. Patient should not use NSAIDs to treat COVID19 signs or symptoms. Patient was also informed that any type of corticosteroid of any form (oral or injection) will decrease the patient's immune system response and may increase the likelihood of COVID19 infection [address] symptoms[address]. Shields has reviewed this note and agrees with this plan of care. This note was dictated using voice recognition software and make contain errors or omissions. [facility] History I have reviewed the
== END ==
PROVIDERS: PCP Nurse Practitioner Family; Visit Provider Clinical Nurse Specialist Family Health
DX: M51.16 Intervertebral disc disorders with radiculopathy, lumbar region (principal); M25.551 Pain in right hip; M46.1 Sacroiliitis, not elsewhere classified; G89.29 Other chronic pain
CPT/HCPCS: 99212

== ENCOUNTER → 2020-07-16 14:14 | Outpatient (CLI) | payer MEDICARE, SELFPAY ==
--- NOTE | 2020-07-16 14:18 | MM_ITS ---
PROCEDURE: MM DIG SCREENING MAMM BI W/CAD Digital Breast Tomosynthesis Included CLINICAL INDICATION: ABNOMRAL MAMMOGRAM OF BOTH BREASTS There is no personal or family history of breast cancer. COMPARISON: MG [facility]BI MM Dig screening mamm BI w/CAD from 07/11/2018 MG MM DIG MAMM BI DX W/CAD from 08/14/2019 MG MM DIG MAMM DX UNILAT LT CAD from 01/31/2020 TECHNIQUE: Standard CC and MLO images and 3D Tomosynthesis was obtained. R2 CAD reviewed. FINDINGS: Breasts are large and primarily minimal scattered fibroglandular densities in subareolar regions bilaterally. There is a mole marker left breast. Benign-appearing calcifications left breast. Stable benign-appearing nodular densities in each breast. There is no new or suspicious lesion in either breast and no suspicious microcalcifications. IMPRESSION: Low-density fatty type breast parenchyma no suspicious lesions seen BI-RAD Category: 2 Benign Finding(s) FOLLOW-UP: 1YR 1 Year Follow-up (A letter has been sent to the patient regarding results of the study.) Dictated by: Dr. John Stein MD 07/22/2020 08:52 Dr. John Stein MD in [place] 07/22/2020 08:52
== END ==
PROVIDERS: PCP Nurse Practitioner Family; Visit Provider Nurse Practitioner Family
DX: Z12.31 Encounter for screening mammogram for malignant neoplasm of breast (principal); Z03.818 Encounter for observation for suspected exposure to other biological agents ruled out
CPT/HCPCS: 77063; 77067; U0003

== ENCOUNTER → 2020-07-16 15:14 | Outpatient (CLI) | payer MEDICARE, SELFPAY | PROVIDERS: PCP Family Medicine; Visit Provider Family Medicine | DX: Z03.818 Encounter for observation for suspected exposure to other biological agents ruled out (principal) | CPT/HCPCS: U0003 ==

== ENCOUNTER 2020-07-31 09:19 | Emergency (ER) | payer MEDICARE, SELFPAY ==
[2020-07-31 09:20] VITALS: BP 151/81; PULSE 101; RESP 22; TEMP 36.6; O2SAT 96; BMI 36.2
--- NOTE | 2020-07-31 09:37 | HMH.EDUTC ---
[facility] [place] Impression: COPD exacerbation Disposition: Home, Self-Care Condition on Discharge: Good Instructions: DI for Chronic Obstructive Pulmonary Disease Additional Instructions: Drink plenty of fluids. Take tylenol for pain or fever. Take the medications as directed. Follow up with your regular doctor. GO TO THE ER FOR ANY WORSENING SYMPTOMS Don't start the oral steroids until tomorrow, since you had the shot here today. The cough medication (promethazine dm) will make you drowsy, so don't drive or operate heavy machinery after taking it. Prescriptions: Promethazine/Dextromethorphan [Promethazine-Dm Syrup] 5 ml PO Q6HP PRN #240 syrup PRN Reason: Cough Transmission Status: Received by [facility] methylPREDNISolone [Medrol] 4 mg PO DIRECTED 6 Days #21 tab.ds.pk Transmission Status: Received by [facility] Cefdinir [Omnicef 300mg Capsule] 300 mg PO BID #20 cap Transmission Status: Received by [facility] Referrals: Telma Naylor APRN [Primary Care Provider] - Time of Disposition: 10:02 Medical Decision Making - Medical Records Medical records reviewed: No: I reviewed the patient's medical records. - Je Inquiry Pt receiving controlled substance: No Vital Signs: 07/31/20 09:20 07/31/20 10:05 Temperature 97.8 F 97.8 F Temperature Source Oral Pulse Rate 101 H Pulse Rate [Right Brachial] 101 H Respiratory Rate 22 22 Blood Pressure 151/81 H Blood Pressure [Right Arm] 151/81 H Blood Pressure Mean [Right Arm] 104 Blood Pressure Source [Right Arm] Automatic Cuff Blood Pressure Position [Right Arm] Sitting 02 Sat by Pulse Oximetry 96 Oxygen Delivery Method Room Air Orders (Tests/Meds): ED MEDICATIONS Discontinued Medications Generic Name Dose Route Start Last Admin Trade Name Freq PRN Reason Stop Dose Admin Ceftriaxone Sodium 1 gm 07/31/20 09:41 07/31/20 09:56 Ceftriaxone 1gm Vial IM 07/31/20 09:42 1 gm ONCE ONE Administration Protocol Lidocaine HCl 0 ml 07/31/20 09:41 07/31/20 09:56 Lidocaine 1% 5ml Pf Vial IM 07/31/20 09:42 2.5 ml ONCE ONE Administration Methylprednisolone Sodium Succinate 125 mg 07/31/20 09:41 07/31/20 09:56 Methylprednisolone Sod Succ 125mg Vial IM 07/31/20 09:42 125 mg ONCE ONE Administration [facility] [place] - General Stated complaint: sinus congestion/pressure Time Seen by Provider: 07/31/20 09:37 - History of Present Illness Provider Complaint: She c/o sinus congestion and chest congestion for the past 2 weeks. She has a history of copd. She denies worsening shortness of breath at this time. - Related Data Home Medications Medication Instructions Recorded Confirmed meclizine 25 mg capsule 25 mg PO QID PRN 08/31/17 06/19/20 azithromycin 250 mg tablet 250 mg PO .[id number] tab 12/28/17 06/19/20 Aspirin [Low Dose Aspirin EC] 81 mg PO QDAY 03/03/18 06/19/20 Potassium Chloride [K-Tab ER 20 20 meq PO BID 03/03/18 06/19/20 mEq] levothyroxine 50 mcg capsule 50 mcg PO DAILY 01/25/19 06/19/20 albuterol sulfate 2.5 mg/0.5 mL 5 mg INHALATION QID PRN 09/13/19 06/19/20 solution for nebulization hydrochlorothiazide 25 mg tablet 25 mg PO DAILY tab 09/13/19 06/19/20 pramipexole 0.25 mg tablet 0.25 mg PO DAILY tab 04/02/20 06/19/20 atorvastatin 20 mg tablet 20 mg PO DAILY tab 04/21/20 06/19/20 fluticasone furoate 100 100 mcg INHALATION DAILY 04/21/20 06/19/20 mcg-vilanterol 25 mcg/dose inhalation powder tiotropium bromide 2.5 2 puff INHALATION DAILY g 04/21/20 06/19/20 mcg/actuation mist for inhalation venlafaxine 75 mg capsule,extended 225 mg PO QHS cap 04/21/20 06/19/20 release 24 hr Pregabalin [Lyrica] 150 mg PO BID 04/23/20 06/19/20 celecoxib 200 mg capsule 200 mg PO DAILY 05/19/20 06/19/20 epinephrine 0.3 mg/0.3 mL 0.3 mg SQ NEEDED PRN each 06/03/20 06/19/20 injection, auto-injector Lidocaine [Lidoderm 5% transder
[2020-07-31 10:05] VITALS: BP 151/81; PULSE 101; RESP 22; TEMP 36.6; O2SAT 96
== END 2020-07-31 10:07 | disposition home or self-care (01) ==
PROVIDERS: Emergency Provider Nurse Practitioner Family; PCP Nurse Practitioner Family
DX: J44.1 Chronic obstructive pulmonary disease with (acute) exacerbation (principal); K21.9 Gastro-esophageal reflux disease without esophagitis; E78.5 Hyperlipidemia, unspecified; F41.9 Anxiety disorder, unspecified; E03.9 Hypothyroidism, unspecified; F17.210 Nicotine dependence, cigarettes, uncomplicated; Z79.899 Other long term (current) drug therapy
CPT/HCPCS: G0463; 96372; 99201

== ENCOUNTER → 2020-08-11 08:38 | Outpatient (POV) | payer MEDICARE, SELFPAY ==
[2020-08-11 08:56] VITALS: BP 142/64; PULSE 88; RESP 20; TEMP 36.3; O2SAT 94; BMI 36.3
--- NOTE | 2020-08-11 09:29 | HMH.PAINSOAP ---
[facility] Pain Management SOAP Note Subjective:: Patient is a 60-year-old white female who presents today for follow-up after psychological evaluation for a neurostimulator. Patient has chronic sacroiliitis, low back pain, leg pain. Patient's had multiple injections with no relief. She is tried and failed physical therapy for greatest than 6 weeks. She is tried and failed medications. She rates her pain today a 10 out of 10 she has difficulty walking. She has numbness tingling in bilateral extremities she has swelling and color changes as well. She also has extreme pain and difficulty with touch to her lower extremities ROS General: no recent weight change, no fever, no sleep disturbances Respiratory: no cough, no shortness of air, no recurring pulmonary infections Cardiovascular/Peripheral Vascular: No chest pain, No palpitations, no edema, no shortness of breath. Gastrointestinal: no new onset incontinence, normal bowel movements reported Genitourinary: no new onset incontinence Musculoskeletal: Back pain, leg pain Psychiatric: normal mood/ affect Neurological: [denies new onset weakness in extremities], [denies new onset balance issues] Objective:: Physical Exam General: Alert and oriented x3, no acute distress, pleasant and cooperative, [on room air] Lungs: Resps E/U, Symmetrical chest expansion, Eyes: PERRL Musculoskeletal: Flexion and extension of lumbar spine somewhat guarded secondary to pain, deep tendon reflexes normal, strength in upper and lower extremities [5/5], [abnormal gait noted] Neurological: speech clear, planning consultant equal, no gross sensory deficits Assessment:: Degenerative disc disease lumbar spine lumbar radiculopathy symptoms, CRPS type II, chronic right hip pain, right sacroiliitis Plan:: Patient is tried and failed conservative therapies including physical therapy, home stretching as well as injective therapy. We are awaiting her psychological evaluation once we have this we will move forward with a [employer] neurostimulator trial. Dr. Shields has reviewed this note and agrees with this plan of care. This note was dictated using voice recognition software and may contain errors or omissions [facility] History I have reviewed the patient's past medical history: Yes Medical History: Reports:: Anxiety, Chronic Obstructive Pulmonary Disease (COPD), Gastroesophageal Reflux Disease(GERD), Home Oxygen, Hyperlipidemia, Hypertension Denies:: Cancer, Diabetes Mellitus Type 1, Diabetes Mellitus Type 2, Internal Pacemaker, MRSA, Seizures *Have you ever received a pneumonia vaccine?: No *Have you received a flu vaccine this season?: Yes Other Medical History: Reports: Hypothyroidism, Sinus Problems, Thyroid Disease, Other. Denies: Blood Transfusion Reaction Other Surgeries: Yes: No Previous Surgery, Cardiac Catheterization, Colonoscopy, , Hernia Repair, Hysterectomy-Total, Sinus Surgery, Tubal Ligation, Other (bladdertuck/ hemrroidectomy). No: Pacemaker Amputation: No Fractures: No - *Social History Smoking Status: Current every day smoker Tobacco Type: cigarettes # Packs/Day (cigarettes): 2 Alcohol Intake: never Substance Use Type: denies use *Occupational Status:: unemployed Housing: house Household Members: spouse *Travel in the last 8 weeks: None - Psychiatric History Pschychiatric History:: Reports:: Anxiety Family Hx:: Cancer, Coronary Artery Disease, Hypertension
== END ==
PROVIDERS: PCP Nurse Practitioner Family; Visit Provider Clinical Nurse Specialist Family Health
DX: M51.16 Intervertebral disc disorders with radiculopathy, lumbar region (principal); G57.71 Causalgia of right lower limb
CPT/HCPCS: 99212

== ENCOUNTER → 2020-09-02 14:19 | Outpatient (CLI) | payer MEDICARE, SELFPAY ==
--- NOTE | 2020-09-02 14:22 | MM_ITS ---
PROCEDURE: MM DIG MAMM DX UNILAT LT CAD Digital Breast Tomosynthesis Included CLINICAL INDICATION: LUMP OF LT BREAST COMPARISON: MG MM DIG MAMM BI DX W/CAD from 08/14/2019 US US BREAST LT COMPLETE from 01/31/2020 MG MM DIG MAMM DX UNILAT LT CAD from 01/31/2020 MG MM DIG SCREENING MAMM BI W/CAD from 07/16/2020 US US BREAST LT COMPLETE from 09/02/2020 TECHNIQUE: Standard CC and MLO images and 3D Tomosynthesis was obtained. R2 CAD reviewed. FINDINGS: Primarily of fat. Minimal glandular elements are seen in the subareolar region. Again noted is the well-defined nodule inner quadrant near the nipple corresponding to the skin marker of the patient's complaint of palpable nodule. It is stable unchanged in appearance from the previous exams. Additional smaller benign-appearing nodular densities are seen in the central portion of the breast. There are couple of benign-appearing microcalcifications. Ultrasound performed the same date showed a well-defined hypoechoic nodule 10 o'clock position near the nipple corresponding to the palpable lump. It measures 0.9 by 0.6 x 1.0 cm and shows subtle somewhat ill-defined acoustic shadowing beneath. There is another isoechoic nodule 10 o'clock position near the nipple measuring 0.9 x 0.3 by 0.9 cm with homogeneous internal echogenicity and this likely is a fibroadenoma although hamartoma is a consideration. There is a normal appearing node in the axilla. There is no new or suspicious lesion and no suspicious microcalcifications. IMPRESSION: Stable exam with stable benign-appearing nodule at the palpable location in addition to additional smaller benign-appearing nodules BI-RAD Category: 2 Benign Finding(s) FOLLOW-UP: 1YR 1 Year Follow-up (A letter has been sent to the patient regarding results of the study.) Dictated by: Dr. John Stein MD 09/11/2020 07:57 Dr. John Stein MD in [place] 09/11/2020 07:57
--- NOTE | 2020-09-02 14:23 | US_ITS ---
PROCEDURE: US BREAST LT COMPLETE CLINICAL INDICATION: LUMP OF LT BREAST COMPARISON: US US BREAST RT COMPLETE from 01/31/2020 FINDINGS: There is an isoechoic oval appearing nodule just beneath the surface of the skin 1 o'clock position outer breast measuring 1.3 by 0.9 x 0.5 cm and this could possibly represent a sebaceous cyst in view of its location. There is a hypoechoic well-defined nodule 10 o'clock position near the nipple at the palpable location measuring 0.9 by 0.6 x 1.0 cm. This could be a sebaceous cyst as well in view with superficial location or hamartoma or a somewhat heterogenic fibroadenoma. There is a 3rd isoechoic nodule 10 o'clock position near the nipple measuring 0.9 by 0.9 x 0.3 cm showing homogeneous echogenicity and this could be a small fibroadenoma. There is a normal appearing node in the axilla. IMPRESSION: Benign-appearing nodular lesions stable unchanged from the previous ultrasound exam and recommend the patient continue with yearly screening mammography Dictated by: Dr. John Stein MD 09/11/2020 08:00 Dr. John Stein MD in [place] 09/11/2020 08:00
== END ==
PROVIDERS: PCP Nurse Practitioner Family; Visit Provider Nurse Practitioner Family
DX: N63.20 Unspecified lump in the left breast, unspecified quadrant (principal); R92.8 Other abnormal and inconclusive findings on diagnostic imaging of breast
CPT/HCPCS: 76641; 77061; 77065; G0279

== ENCOUNTER → 2020-09-17 09:52 | Outpatient (CLI) | payer MEDICARE, SELFPAY ==
[2020-09-17 10:35] VITALS: PULSE 84; PULSE 86
[2020-09-17 11:49] LABS: Basophils # 0.1 K/mm3 (0-0.2); Basophils % 0.4 % (0.1-2.0); Eosinophils # 0.4 K/mm3 (0.0-0.4); Eosinophils % 2.4 % (0.1-12.0); Hematocrit 46.2 % (37.0-47.0); Hemoglobin 14.2 g/dL (12.2-16.2); Lymphocytes # 2.3 K/mm3 (0.7-4.5); Lymphocytes % 15.9 % (10-50); Mean Corpuscular HGB Conc 30.8 g/dL (31.8-35.4); Mean Corpuscular Hemoglobin 26.2 pg (27.0-31.2); Mean Corpuscular Volume 84.8 fl (81-99); Mean Platelet Volume 8.4 fl (7.4-10.4); Monocytes # 0.6 K/mm3 (0.1-1.0); Monocytes % 4.1 % (1.7-9.3); Neutrophils % 77.2 % (37.0-80.0); Platelet Count 204 K/mm3 (142-424); Red Blood Count 5.45 M/mm3 (4.20-5.40); Red Cell Distribution Width 15.8 % (11.5-17.5); White Blood Count 14.3 K/mm3 (4.8-10.8)
[2020-09-17 12:23] LABS: Anion Gap 10.9 mEq/L (5-15); Blood Urea Nitrogen 7 mg/dl (7-17); Calcium 9.7 mg/dl (8.4-10.2); Carbon Dioxide 35 mmol/L (22.0-30.0); Chloride 98 mmol/L (98-107); Estimated Glomerular Filt Rate 126 ml/min (>60); GFR (African American) 153 ML/MIN (>60); Glucose 101 mg/dl (74-100); Potassium 3.9 mmoL/L (3.5-5.1); Sodium 140 mmol/L (136-145)
[2020-09-17 14:03] LABS: Coronavirus 19 IgG Antibody Negative (Negative); Coronavirus 19 IgM Antibody Negative (Negative)
== END ==
PROVIDERS: PCP Nurse Practitioner Family; Visit Provider Internal Medicine Pulmonary Disease
DX: Z01.812 Encounter for preprocedural laboratory examination (principal); Z20.822 Contact with and (suspected) exposure to COVID-19; J43.9 Emphysema, unspecified; M51.36 Other intervertebral disc degeneration, lumbar region
CPT/HCPCS: 36415; 80048; 85025; 86328; 94060; 94640; 94727; 94729

== ENCOUNTER 2020-09-19 08:07 | Day surgery (SDC) | payer MEDICARE, SELFPAY ==
[2020-09-16 12:49] VITALS: BMI 38.2
[2020-09-19 08:24] VITALS: BP 142/53; PULSE 90; RESP 18; TEMP 36.8; O2SAT 93
[2020-09-19 11:15] VITALS: BP 139/67; PULSE 94; RESP 18; TEMP 36.8; O2SAT 94
--- NOTE | 2020-09-19 11:21 | HMH.PMPROC ---
- Procedure Date: 09/19/20 Time: 11:21 Anesthesiologist:: Ajit Shields MD Complications:: None Pre-procedure Diagnosis:: There is disc disease of lumbar spine with lumbar radiculopathy symptoms and postlaminectomy syndrome lumbar spine Post-procedure Diagnosis:: Same Indications for Procedure:: Patient is a pleasant 60-year-old white female who we are treating for low back pain with lumbar radiculopathy symptoms and postlaminectomy syndrome lumbar spine. She has increasing pain in her low back and down both legs right greater than left. She has failed all previous conservative therapy including physical therapy, oral medications, injections and she is failed previous surgery twice. Her surgeries were done by Dr. Young. She has had a successful psychological evaluation. She presents for spinal cord stimulator trial today. Will be with the [employer] system Procedure Details:: Informed consent was obtained and the risk and benefits of the procedure were explained to the patient. Patient was taken to the procedure room. The back was prepped using ChloraPrep. The skin and subcutaneous tissues were excised using lidocaine. I placed a 17-gauge epidural needles into the L2-L3 interspace. After confirmation of needle placement in the epidural space stimulating lead was inserted and advanced very easily to the T7-T8-T9 vertebral body. Lead placement was checked in AP and lateral views. A second needle was inserted and advanced again into the L2-L3 interspace. Again after confirmation needle placement in the epidural space a stimulating lead was inserted and advanced again very easily to the T7-T8-T9 vertebral body. One lead was midline and one lead was right of midline. Lead placement was again checked in AP and lateral views. The stylets and needles were removed. The leads were secured in place. The patient was taken recovery in stable condition. The patient tolerated the procedure well with no complications. Patient was programmed by the [employer] security systems sales representative and placed on a paresthesia free fast program. Plan and disposition: We will follow-up with this patient in 3 days for reprogramming. We will follow-up in 1 week for lead pull. If she has any problems or questions she is to call us back in the pain clinic. She will be sent home with postop antibiotics for 5 days. Plan and Disposition:: We will follow-up with this patient in 3 days for reprogramming. We will follow-up in 1 week for lead pull. If she has any problems or questions she is to call us back in the pain clinic. She will be sent home with postop antibiotics for 5 days.
--- NOTE | 2020-09-19 11:24 | P.OP_ITS ---
Date of procedure: 09/19/20 Pre-op Diagnosis:: Degenerative disc disease of lumbar spine with lumbar radiculopathy symptoms and postlaminectomy syndrome lumbar spine Post-op Diagnosis:: Same Procedure performed:: Spinal cord stimulator trial with epidural lead placement x2 Surgeon:: Ajit Shields MD SOFTWARE DEVELOPMENT SPECIALIST:: Abhinav Chavez Anesthesia: MAC Estimated blood loss (mL): 1 Clinical Note:: Patient is a pleasant 60-year-old white female who we are treating for low back pain with lumbar radiculopathy symptoms and postlaminectomy syndrome lumbar spine. She has increasing pain in her low back and down both legs right greater than left. She has failed all previous conservative therapy including physical therapy, oral medications, injections and she is failed previous surgery twice. Her surgeries were done by Dr. Young. She has had a successful psychological evaluation. She presents for spinal cord stimulator trial today. Will be with the [employer] system Operative findings:: None Operative note:: Informed consent was obtained and the risk and benefits of the procedure were explained to the patient. Patient was taken to the procedure room. The back was prepped using ChloraPrep. The skin and subcutaneous tissues were excised using lidocaine. I placed a 17-gauge epidural needles into the L2-L3 interspace. After confirmation of needle placement in the epidural space stimulating lead was inserted and advanced very easily to the T7-T8-T9 vertebral body. Lead placement was checked in AP and lateral views. A second needle was inserted and advanced again into the L2-L3 interspace. Again after confirmation needle placement in the epidural space a stimulating lead was inserted and advanced again very easily to the T7-T8-T9 vertebral body. One lead was midline and one lead was right of midline. Lead placement was again checked in AP and lateral views. The stylets and needles were removed. The leads were secured in place. The patient was taken recovery in stable condition. The patient tolerated the procedure well with no complications. Patient was programmed by the [employer] business representative and placed on a paresthesia free fast program. Plan and disposition: We will follow-up with this patient in 3 days for reprogramming. We will follow-up in 1 week for lead pull. If she has any problems or questions she is to call us back in the pain clinic. She will be sent home with postop antibiotics for 5 days. Condition: stable Disposition: PACU Complications:: None
[2020-09-19 11:30] VITALS: BP 130/98; PULSE 87; RESP 18; TEMP 36.8; O2SAT 98
[2020-09-19 11:45] VITALS: BP 143/62; PULSE 79; RESP 18; TEMP 36.8; O2SAT 95
[2020-09-19 12:00] VITALS: BP 143/75; PULSE 92; RESP 18; TEMP 36.6; O2SAT 93
[2020-09-19 12:45] VITALS: BP 129/86; PULSE 87; RESP 18; TEMP 36.6; O2SAT 92
--- NOTE | 2020-09-19 15:07 | HMH.ANESCL ---
[facility] Anesthesia Checklist - Patient Identification Patient Identification: Arm Band - Structural Data Admitted From: Home Planned Operative Procedure/s: Neurostimulator Trial Lead placement under fluoroscopy Consent for Planned Operative Procedure(s) Verified: Yes Verified Documents: Surgical Consent, History and Physical - NPO Status Verified Time NPO: 00:00 - Additional verifications Anesthesia Reactions: No Hx Blood Transfusions: No Blood Transfusion Reaction: No - Airway Assessment C-Spine Mobility Assessed: Yes (mp2) TMJ Mobility Assessed: Yes Dentition: Good Dentition - Neurological Assessment Level of Consciousness: Awake, Alert - Anesthesia Plan Anesthesia Risk discussed: Yes Anesthesia Plan: Verified ASA Class: III Anesthesia Type: MAC [facility] History I have reviewed the patient's past medical history: Yes Medical History: Reports:: Anxiety, Chronic Obstructive Pulmonary Disease (COPD), Gastroesophageal Reflux Disease(GERD), Home Oxygen, Hyperlipidemia, Hypertension Denies:: Cancer, Diabetes Mellitus Type 1, Diabetes Mellitus Type 2, Internal Pacemaker, MRSA, Seizures *Have you ever received a pneumonia vaccine?: Yes *Have you received a flu vaccine this season?: Yes Other Medical History: Reports: Hypothyroidism, Sinus Problems, Thyroid Disease, Other. Denies: Blood Transfusion Reaction Anesthesia experience/problems:: nac Other Surgeries: Yes: Cardiac Catheterization, Colonoscopy, , Hernia Repair, Hysterectomy-Total, Sinus Surgery, Tubal Ligation, Other (bladdertuck/ hemrroidectomy). No: Pacemaker Amputation: No Fractures: No - *Social History Last grade of school completed: 7th or 8th Smoking Status: Current every day smoker Tobacco Type: cigarettes # Packs/Day (cigarettes): 2 Alcohol Intake: never Substance Use Type: denies use *Occupational Status:: disabled Housing: house Household Members: family *Travel in the last 8 weeks: None - Psychiatric History Pschychiatric History:: Reports:: Anxiety Family Hx:: Anemia, Heart Attack, Hypertension
== END 2020-09-19 12:45 | disposition home or self-care (01) ==
LOC: OR 08:09
PROVIDERS: PCP Nurse Practitioner Family; Visit Provider Anesthesiology
DX: M51.16 Intervertebral disc disorders with radiculopathy, lumbar region (principal); M96.1 Postlaminectomy syndrome, not elsewhere classified; E78.5 Hyperlipidemia, unspecified; I10 Essential (primary) hypertension; J44.9 Chronic obstructive pulmonary disease, unspecified; F41.9 Anxiety disorder, unspecified; E03.9 Hypothyroidism, unspecified; Z99.81 Dependence on supplemental oxygen; Z72.0 Tobacco use; Z88.6 Allergy status to analgesic agent; Z88.1 Allergy status to other antibiotic agents; Z79.899 Other long term (current) drug therapy
CPT/HCPCS: 63650 ×2; 96374; C1778; J3370

== ENCOUNTER → 2020-09-26 09:20 | Outpatient (POV) | payer MEDICARE, SELFPAY ==
[2020-09-26 09:38] VITALS: BP 145/64; PULSE 75; RESP 18; TEMP 36.4; O2SAT 98; BMI 37.2
--- NOTE | 2020-09-26 09:59 | P.CONS_ITS ---
[facility] Pain Management SOAP Note Subjective:: This patient is a pleasant 60-year-old white female who we are treating for low back pain with lumbar radiculopathy symptoms and postlaminectomy syndrome lumbar spine. She is status post spinal cord stimulator trial. She is 90% better. Pain score is a 1 out of 10. She is sleeping better she is walking much better. She is much more functional. She had failed all previous conservative therapy including physical therapy, oral medications, injections and previous surgery. Her surgeries were done by Dr. Young. She has had a successful psychological evaluation and a successful spinal cord stimulator trial. We will plan on permanent placement with [employer] system. Objective:: Alert and oriented x3 no acute distress. Patient has an antalgic gait. Motor strength of the lower extremities is 5/5. There is no gross sensory deficit. Leads were pulled out intact. There is no signs of redness infection or swelling. Assessment:: Degenerative disc disease of lumbar spine with lumbar radiculopathy symptoms and postlaminectomy syndrome lumbar spine Plan:: We will plan on permanent placement of a [employer] spinal cord stimulator system. Leads will be T7-T8-T9. We will confirm programming with the [employer] risk control representative. She will be placed on a paresthesia free fast program. [facility] History Medical History: Reports:: Anxiety, Chronic Obstructive Pulmonary Disease (COPD), Gastroesophageal Reflux Disease(GERD), Home Oxygen, Hyperlipidemia, Hypertension Denies:: Cancer, Diabetes Mellitus Type 1, Diabetes Mellitus Type 2, Internal Pacemaker, MRSA, Seizures *Have you ever received a pneumonia vaccine?: No *Have you received a flu vaccine this season?: Yes Other Medical History: Reports: Hypothyroidism, Sinus Problems, Thyroid Disease, Other. Denies: Blood Transfusion Reaction Other Surgeries: Yes: No Previous Surgery, Cardiac Catheterization, Colonoscopy, , Hernia Repair, Hysterectomy-Total, Sinus Surgery, Tubal Ligation, Other (bladdertuck/ hemrroidectomy). No: Pacemaker Amputation: No Fractures: No - *Social History Smoking Status: Current every day smoker Tobacco Type: cigarettes # Packs/Day (cigarettes): 2 Alcohol Intake: never Substance Use Type: denies use *Occupational Status:: disabled Housing: house Household Members: family *Travel in the last 8 weeks: None - Psychiatric History Pschychiatric History:: Reports:: Anxiety Family Hx:: Anemia, Heart Attack, Hypertension
== END ==
PROVIDERS: PCP Nurse Practitioner Family; Visit Provider Anesthesiology
DX: M51.16 Intervertebral disc disorders with radiculopathy, lumbar region (principal); M96.1 Postlaminectomy syndrome, not elsewhere classified
CPT/HCPCS: 99212; G0463

== ENCOUNTER → 2020-10-08 08:58 | Outpatient (POV) | payer MEDICARE, SELFPAY ==
--- NOTE | 2020-10-08 12:13 | HMH.PMCON ---
Assessment and Plan - Assessment and plan all Dx Assessment and Plan for all problems:: Impression-degenerative disc disease of the lumbar spine with radiculopathy and postlaminectomy syndrome Placement of pain stimulator system to be arranged in the near future HPI - Data of Consult Patient: new to practice Requesting Physician: Jonny Wang MD Primary Care Provider: Telma Naylor APRN - Consult Narrative Reason for consult: Chronic back pain History of present illness: Ms. Shaw is a 60 year old female with chronic back pain caused by degenerative disc disease lumbar spine with radiculopathy as well as postlaminectomy syndrome. 2 previous back surgeries. She had a pain stimulator trial with significant improvement?90%. She comes in today in anticipation of placement of that system in the near future CC: Jonny Wang MD [facility] History I have reviewed the patient's past medical history: Yes Medical History: Reports:: Anxiety, Chronic Obstructive Pulmonary Disease (COPD), Gastroesophageal Reflux Disease(GERD), Home Oxygen, Hyperlipidemia, Hypertension Denies:: Cancer, Diabetes Mellitus Type 1, Diabetes Mellitus Type 2, Internal Pacemaker, MRSA, Seizures *Have you ever received a pneumonia vaccine?: No *Have you received a flu vaccine this season?: Yes Other Medical History: Reports: Hypothyroidism, Sinus Problems, Thyroid Disease, Other. Denies: Blood Transfusion Reaction Comment:: Illnesses-anxiety depression, COPD, GERD, hyperlipidemia hypertension hypothyroidism, Other Surgeries: Yes: No Previous Surgery, Cardiac Catheterization, Colonoscopy, , Hernia Repair, Hysterectomy-Total, Sinus Surgery, Tubal Ligation, Other (bladdertuck/ hemrroidectomy). No: Pacemaker Amputation: No Fractures: No Comment: Operations-cardiac cath, colonoscopy, , hemorrhoidectomy, hysterectomy, sinus surgery, bladder suspension - *Social History Smoking Status: Current every day smoker Tobacco Type: cigarettes # Packs/Day (cigarettes): 2 Alcohol Intake: never Substance Use Type: denies use *Occupational Status:: disabled Housing: house Household Members: family *Travel in the last 8 weeks: None - Psychiatric History Pschychiatric History:: Reports:: Anxiety Family Hx:: Anemia, Heart Attack, Hypertension Review of Systems - Review of Systems Review of systems:: pertinent systems reviewed and negative unless documented below Meds Home Medications Medication Instructions Recorded Confirmed Type Aspirin [Low Dose Aspirin EC] 81 mg PO QDAY 03/03/18 09/26/20 History Potassium Chloride [K-Tab ER 20 20 meq PO BID 03/03/18 09/26/20 History mEq] omeprazole 40 mg capsule,delayed 40 mg PO QDAY #90 cap 05/16/18 09/26/20 Rx release levothyroxine 50 mcg capsule 50 mcg PO DAILY 01/25/19 09/26/20 History hydrochlorothiazide 25 mg tablet 25 mg PO DAILY tab 09/13/19 09/26/20 History pramipexole 0.25 mg tablet 0.25 mg PO DAILY tab 04/02/20 09/26/20 History atorvastatin 20 mg tablet 20 mg PO DAILY tab 04/21/20 09/26/20 History fluticasone furoate 100 100 mcg INHALATION DAILY 04/21/20 09/26/20 History mcg-vilanterol 25 mcg/dose inhalation powder tiotropium bromide 2.5 2 puff INHALATION DAILY g 04/21/20 09/26/20 History mcg/actuation mist for inhalation venlafaxine 75 mg capsule,extended 225 mg PO QHS cap 04/21/20 09/26/20 History release 24 hr Pregabalin [Lyrica] 150 mg PO BID 04/23/20 09/26/20 History celecoxib 200 mg capsule 200 mg PO DAILY 05/19/20 09/26/20 History epinephrine 0.3 mg/0.3 mL 0.3 mg SQ NEEDED PRN each 06/03/20 09/26/20 History injection, auto-injector amlodipine 10 mg tablet 10 mg PO DAILY tab 06/19/20 09/26/20 History ipratropium 0.5 mg-albuterol 3 mg 1 ml INHALATION BID 06/19/20 09/26/20 History (2.5 mg base)/3 mL nebulization soln Azithromycin 250 mg PO QPMWM 09/16/20 09/26/20 History Meclizine HCl [Meclizine 25mg Tab] 25 mg PO BID 09/16/20 0
== END ==
PROVIDERS: PCP Nurse Practitioner Family; Visit Provider Surgery
DX: M51.16 Intervertebral disc disorders with radiculopathy, lumbar region (principal); M96.1 Postlaminectomy syndrome, not elsewhere classified
CPT/HCPCS: 99212; G0463

== ENCOUNTER 2020-10-26 12:19 | Emergency (ER) | payer MEDICARE, SELFPAY ==
[2020-10-26 13:00] VITALS: BP 149/90; PULSE 76; RESP 19; TEMP 36.9; O2SAT 98; BMI 51.7
--- NOTE | 2020-10-26 13:32 | HMH.EDUTC ---
[facility] Disposition Clinical Impression: Bronchitis Sinusitis Qualifiers: Sinusitis location: unspecified location Chronicity: unspecified Qualified Code(s): J32.9 - Chronic sinusitis, unspecified Disposition: Home, Self-Care Condition on Discharge: Good Instructions: Sinusitis, Acute Bronchitis, DI for Sinusitis, Doxycycline, Guaifenesin Additional Instructions: *Monitor Temp, Over the counter Motrin or Tylenol as directed/as needed Tylenol every 4 hours and Motrin every 6 hours (as long as your family doctor has told you that you can take it) for fever or pain. and straight to ER if unable to lower temp less than 101.0 after medication given *Warm salt water gargles may help to soothe the throat *Throat Lozenges *Warm fluids like tea with honey may help to soothe the throat *Sleep elevated *Humidifier/Vaporizer Take medication as prescribed Make sure to follow up with your Family Doctor Make sure to seperate medication times from your Omeprazole Follow up IMMEDIATELY for new or worsening symptoms or no Noticeable improvement over the next 48-72 hours. 911 for difficulty breathing or swallowing You were tested for today for COVID19 your test result should be back in the next 24-48 hours, you may call to the [facility] to see if your test results are back in the next 48 hours [phone] [facility] hours are 9am-9pm You was given a handout with instructions for Self Quarantine and Self isolation for while you wait on test results and what to do if they are positive If you are positive the Health Dept will be contacting you also Prescriptions: Doxycycline Monohydrate [Doxycycline Archuleta 100mg Tab] 100 mg PO BID 10 Days #20 tab Transmission Status: Pending to [id number] guaiFENesin [Mucinex 600mg tablet] 600 mg PO Q12H #20 tab.er.12h Transmission Status: Pending to [id number] Referrals: Telma Naylor APRN [Primary Care Provider] - As needed Forms: Work/School Release Time of Disposition: 13:51 Medical Decision Making - Je Inquiry Pt receiving controlled substance: No Je was queried for this patient: No Vital Signs: 10/26/20 13:00 10/26/20 14:00 Temperature 98.4 F 98.4 F Temperature Source Oral Pulse Rate 76 Pulse Rate [Right Brachial] 76 Respiratory Rate 19 19 Blood Pressure 149/90 H Blood Pressure [Right Arm] 149/90 H Blood Pressure Mean [Right Arm] 109 Blood Pressure Source [Right Arm] Automatic Cuff Blood Pressure Position [Right Arm] Sitting 02 Sat by Pulse Oximetry 98 Oxygen Delivery Method Room Air Orders (Tests/Meds): ED MEDICATIONS Discontinued Medications Generic Name Dose Route Start Last Admin Trade Name Freq PRN Reason Stop Dose Admin Methylprednisolone Sodium Succinate 125 mg 10/26/20 13:42 10/26/20 13:45 Methylprednisolone Sod Succ 125mg Vial IM 10/26/20 13:43 125 mg ONCE ONE Administration Medical Decision Narrative: Medications discussed with pharmacy [facility] HPI - General Stated complaint: weak, body aches Time Seen by Provider: 10/26/20 13:32 Mode of Arrival: Ambulatory Source of Information: Patient Limitations: No Limitations Description of Symptoms (Recalled from Triage Doc. by RN): PATIENT C/O WEAKNESS, COUGH, SINUS DRAINAGE AND BODY ACHES X 2 WEEKS HEENT Symptoms (Recalled from RN notes): Yes Resp Symptoms (Recalled from RN notes): Yes Skin Symptoms (Recalled from RN notes): No MS Symptoms (Recalled from RN notes): No Functional Status (Recalled from RN notes): WNL - History of Present Illness Provider Complaint: Patient states that she has been having sinus problems for about a month and has been on several different kinds of medications over the last couple months trying to get her cleared up States that today she is having sinus pain and pressure again with drainage in the back of her throat and feeling pressure in her teeth again States that she also was having body aches and headache and came in to get checked ag
[2020-10-26 14:00] VITALS: BP 149/90; PULSE 76; RESP 19; TEMP 36.9; O2SAT 98
== END 2020-10-26 14:02 | disposition home or self-care (01) ==
PROVIDERS: Emergency Provider Nurse Practitioner; PCP Nurse Practitioner Family
DX: Z20.822 Contact with and (suspected) exposure to COVID-19 (principal); J32.9 Chronic sinusitis, unspecified; I10 Essential (primary) hypertension; K21.9 Gastro-esophageal reflux disease without esophagitis; E78.5 Hyperlipidemia, unspecified; J44.9 Chronic obstructive pulmonary disease, unspecified; F41.9 Anxiety disorder, unspecified; E03.9 Hypothyroidism, unspecified; F17.210 Nicotine dependence, cigarettes, uncomplicated; Z88.8 Allergy status to other drugs, medicaments and biological substances; Z79.899 Other long term (current) drug therapy
CPT/HCPCS: G0463; 96372; 99202; U0003

== ENCOUNTER → 2020-11-04 09:14 | Outpatient (CLI) | payer MEDICARE, SELFPAY ==
[2020-11-04 10:05] LABS: Basophils # 0.1 K/mm3 (0-0.2); Basophils % 0.4 % (0.1-2.0); Eosinophils # 0.3 K/mm3 (0.0-0.4); Eosinophils % 1.9 % (0.1-12.0); Hematocrit 44.3 % (37.0-47.0); Hemoglobin 14.1 g/dL (12.2-16.2); Lymphocytes # 2.5 K/mm3 (0.7-4.5); Lymphocytes % 16.9 % (10-50); Mean Corpuscular HGB Conc 31.8 g/dL (31.8-35.4); Mean Corpuscular Hemoglobin 26.5 pg (27.0-31.2); Mean Corpuscular Volume 83.4 fl (81-99); Mean Platelet Volume 8.7 fl (7.4-10.4); Monocytes % 6.6 % (1.7-9.3); Neutrophils % 74.1 % (37.0-80.0); Platelet Count 247 K/mm3 (142-424); Red Blood Count 5.31 M/mm3 (4.20-5.40); Red Cell Distribution Width 15.9 % (11.5-17.5); White Blood Count 14.9 K/mm3 (4.8-10.8)
[2020-11-04 10:40] LABS: Chloride 96 mmol/L (98-107); Potassium 3.5 mmoL/L (3.5-5.1); Sodium 136 mmol/L (136-145)
[2020-11-04 10:43] LABS: Blood Urea Nitrogen 5 mg/dl (7-17); Estimated Glomerular Filt Rate 126 ml/min (>60); GFR (African American) 153 ML/MIN (>60)
[2020-11-04 10:44] LABS: Anion Gap 8.5 mEq/L (5-15); Calcium 9.5 mg/dl (8.4-10.2); Carbon Dioxide 35 mmol/L (22.0-30.0); Glucose 95 mg/dl (74-100)
[2020-11-04 10:58] LABS: Coronavirus 19 IgG Antibody Positive (Negative); Coronavirus 19 IgM Antibody Negative (Negative)
== END ==
PROVIDERS: Visit Provider Anesthesiology
DX: Z01.818 Encounter for other preprocedural examination (principal); Z20.822 Contact with and (suspected) exposure to COVID-19; M51.36 Other intervertebral disc degeneration, lumbar region
CPT/HCPCS: 36415; 80048; 85025; 86328

== ENCOUNTER 2020-11-05 09:17 | Day surgery (SDC) | payer MEDICARE, SELFPAY ==
[2020-11-03 15:36] VITALS: BMI 36.9
[2020-11-05] VITALS (7 sets, daily range): BP systolic 105–180; BP diastolic 66–88; PULSE 78–94; RESP 16–18; TEMP 36.3–36.7; O2SAT 91–97
--- NOTE | 2020-11-05 13:11 | P.OP_ITS ---
Date of procedure: 11/05/20 Pre-op Diagnosis:: Degenerative disc disease of the lumbar spine with radiculopathy Post-op Diagnosis:: Same Procedure performed:: Placement of pain stimulator generator Surgeon:: Jonny Wang MD IUSS ANALYST:: Nasim Langston, Jack Selby, Abhinav Chavez, Elliot Resendiz, Other Anesthesia: MAC Estimated blood loss (mL): 5 Operative findings:: Not applicable Operative note:: Once adequate IV sedation was obtained by anesthesia and local anesthesia was 1% Xylocaine with epinephrine patient was placed prone on the operating table and her back and flank regions were prepped and draped in sterile fashion. Paraspinal incision made by Dr. Easton there which 2 epidural leads were placed in the epidural space to the area desired by Dr. Blount. The leads were then fixed the paraspinal fascia with fixation devices and 2-0 Prolene sutures. A right flank incision was made under which is made a pocket for placement of the generator. Utilizing the tunneling device the lead was passed from the paraspinal incision to the pocket incision. Leads connected to the generator and placed in the pocket noting proper functioning of the system. Both pockets irrigated with antibiotic solution. Subcutaneous tissues closed with 2-0 Vicryl.. Skin closed with stitches of 4-0 nylon. Wound VAC dressings and a bin swati applied to the wound. Patient tolerated the procedure well was taken to the recovery room in stable condition. Upon recovery the patient be discharged home will follow up in 1 week for removal of the wound VAC system and in 2 weeks removal of the sutures. Antibiotics x7 days per protocol. The patient tolerated the procedure well and was taken recovery in stable condition. Condition: stable Disposition: PACU Complications:: None
--- NOTE | 2020-11-05 13:27 | HMH.OPNOTE ---
Date of procedure: 11/05/20 Pre-op Diagnosis:: Active disc disease of lumbar spine with lumbar radiculopathy symptoms and postlaminectomy syndrome lumbar spine Post-op Diagnosis:: Same Procedure performed:: Spinal cord stimulator lead placement epidural x2 for permanent spinal cord stimulator Surgeon:: Ajit Shields MD AIRCRAFT INSTRUMENT TESTER:: Other Anesthesia: MAC Estimated blood loss (mL): 5 Clinical Note:: This patient is a pleasant 60-year-old white female who we are treating for low back pain with lumbar radiculopathy symptoms and postlaminectomy syndrome lumbar spine. She has failed all previous conservative treatments including injections, oral medications, physical therapy and previous surgery. She has had a successful psychological evaluation and a successful spinal cord stimulator trial. She was 80 to 90% better. She was sleeping better and walking much better. She presents for permanent placement of spinal cord stimulator today. Operative findings:: None Operative note:: Informed consent was obtained and the risk and benefits of the procedure were explained to the patient. The patient was taken to the operating room placed prone on the procedure table. Is prepped and draped in sterile fashion. C-arm fluoroscopy was used to view the L2-L3 and L3-L4 interspace. I anesthetized the skin and subcutaneous tissues adjacent to these levels and made an incision and dissected down to the lumbar paraspinous fascia. A 17-gauge epidural needle was inserted and advanced into the L2-L3 interspace. After confirmation of needle placement in the epidural space a stimulating lead was inserted and advanced very easily to the T7-T8 vertebral body. Lead placement was checked in AP and lateral views. A second needle was then inserted and advanced again into the L2-L3 interspace. Again after confirmation of needle placement in the epidural space a second stimulating lead was inserted and advanced again very easily to the T7-T8 vertebral body. Again lead placement checked in AP and lateral views. The stylets and needles were removed. The leads were secured to the fascia with anchoring devices and 2-[address] Wang created the generator pocket. I tunneled the leads from the back to the generator pocket and attached the leads to the generator. Both incisions were irrigated with bacitracin solution. We then closed both incisions with 2-0 Vicryl followed by 4-0 nylon. A wound VAC was placed over both incisions. An abdominal binder was placed and the patient was taken recovery in stable condition. Patient was programmed by the [employer] senior outside sales representative with good stimulation in all areas of pain. The patient was placed on a paresthesia free fast program. Patient was discharged home neurologically intact with good relief of pain symptoms. Plan and disposition: Follow-up with this patient in 1 week for reprogramming. We will remove the wound VAC at that time. We will follow-up in 2 weeks for suture removal and reprogram again if needed. If the patient has any problems or questions she is to call us back in the pain clinic. Condition: stable Disposition: PACU Complications:: None
== END 2020-11-05 15:00 | disposition home or self-care (01) ==
LOC: OR 09:18
PROVIDERS: PCP Nurse Practitioner Family; Visit Provider Anesthesiology
DX: M51.16 Intervertebral disc disorders with radiculopathy, lumbar region (principal); M96.1 Postlaminectomy syndrome, not elsewhere classified; I10 Essential (primary) hypertension; J44.9 Chronic obstructive pulmonary disease, unspecified; E78.5 Hyperlipidemia, unspecified; Z88.1 Allergy status to other antibiotic agents; Z79.82 Long term (current) use of aspirin; Z79.899 Other long term (current) drug therapy
CPT/HCPCS: 63650 ×2; 63685; 96374; C1778; C1820; J3370

== ENCOUNTER → 2020-11-14 09:07 | Outpatient (POV) | payer MEDICARE, SELFPAY ==
[2020-11-14 09:24] VITALS: BP 153/76; PULSE 73; RESP 18; TEMP 36.6; O2SAT 95; BMI 36.9
--- NOTE | 2020-11-14 10:00 | HMH.PAINSOAP ---
[facility] Pain Management SOAP Note Subjective:: This patient is a pleasant 60-year-old white female who is status post permanent placement of [employer] spinal cord stimulator system. She is doing very well. She presents for removal of her wound VAC today and wound check today. Overall she has 80 to 90% relief in her pain symptoms. And her incisions look great. Objective:: Alert and oriented x3 no acute distress. Patient does have an antalgic gait. Motor strength of the lower extremities is 5/5. There is no gross sensory deficit. Incisions have healed very nicely. Wound VAC was removed today. Sutures are still in place. Patient is getting good coverage with spinal cord stimulator system. Assessment:: Degenerative disc disease of lumbar spine with lumbar radiculopathy symptoms and postlaminectomy syndrome lumbar spine with permanent placement [employer] spinal cord stimulator system. Plan:: I am very pleased with her progress. We will follow-up with her in 2 weeks. Will reevaluate symptoms at that time. Sutures will be removed at that time. [facility] History Medical History: Reports:: Anxiety, Chronic Obstructive Pulmonary Disease (COPD), Gastroesophageal Reflux Disease(GERD), Home Oxygen, Hyperlipidemia, Hypertension Denies:: Cancer, Diabetes Mellitus Type 1, Diabetes Mellitus Type 2, Internal Pacemaker, MRSA, Seizures *Have you ever received a pneumonia vaccine?: Yes *Have you received a flu vaccine this season?: Yes Other Medical History: Reports: Hypothyroidism, Sinus Problems, Thyroid Disease, Other. Denies: Blood Transfusion Reaction Other Surgeries: Yes: No Previous Surgery, Cardiac Catheterization, Colonoscopy, , Hernia Repair, Hysterectomy-Total, Sinus Surgery, Tubal Ligation, Other (bladdertuck/ hemrroidectomy). No: Pacemaker Amputation: No Fractures: No - *Social History Smoking Status: Current every day smoker Tobacco Type: cigarettes # Packs/Day (cigarettes): 2 Alcohol Intake: never Substance Use Type: denies use *Occupational Status:: other Housing: house Household Members: family *Travel in the last 8 weeks: None - Psychiatric History Pschychiatric History:: Reports:: Anxiety Family Hx:: Anemia, Heart Attack, Hypertension
== END ==
PROVIDERS: PCP Nurse Practitioner Family; Visit Provider Clinical Nurse Specialist Family Health
DX: M51.16 Intervertebral disc disorders with radiculopathy, lumbar region (principal); M96.1 Postlaminectomy syndrome, not elsewhere classified; Z96.82 Presence of neurostimulator
CPT/HCPCS: 99212; G0463

== ENCOUNTER → 2020-11-27 09:10 | Outpatient (POV) | payer MEDICARE, SELFPAY ==
[2020-11-27 09:49] VITALS: BP 148/74; PULSE 75; RESP 18; TEMP 37; O2SAT 98; BMI 38.3
--- NOTE | 2020-11-27 09:59 | HMH.PAINSOAP ---
[facility] Pain Management SOAP Note Subjective:: Patient is a 60-year-old white female who presents today for follow-up after permanent placement of [employer] spinal cord stimulator. Patient overall doing well rating her pain a 6 out of 10 she is recently met with the insurance follow up representative. Her stitches have been removed. No sign symptoms of infection. ROS General: no recent weight change, no fever, no sleep disturbances Respiratory: no cough, no shortness of air, no recurring pulmonary infections Cardiovascular/Peripheral Vascular: No chest pain, No palpitations, no edema, no shortness of breath. Gastrointestinal: no new onset incontinence, normal bowel movements reported Genitourinary: no new onset incontinence Musculoskeletal: Back pain, leg pain Psychiatric: normal mood/ affect Neurological: [denies new onset weakness in extremities], [denies new onset balance issues] Objective:: Physical Exam General: Alert and oriented x3, no acute distress, pleasant and cooperative, [on room air] Lungs: Resps E/U, Symmetrical chest expansion, Eyes: PERRL Musculoskeletal: Flexion and extension of lumbar spine somewhat guarded secondary to pain, deep tendon reflexes normal, strength in upper and lower extremities [5/5], slightly antalgic gait noted Neurological: speech clear, outreach consultant equal, no gross sensory deficits Assessment:: Degenerative disc disease lumbar spine with lumbar radiculopathy symptoms postlaminectomy syndrome lumbar spine Plan:: We will see the patient back in 1 month reassess her symptoms at that time she has been instructed to call the office if she has any issues prior to her next appointment. Dr. Shields has reviewed this note and agrees with this plan of care. This note was dictated using voice recognition software and may contain errors or omissions [facility] History I have reviewed the patient's past medical history: Yes Medical History: Reports:: Anxiety, Chronic Obstructive Pulmonary Disease (COPD), Gastroesophageal Reflux Disease(GERD), Home Oxygen, Hyperlipidemia, Hypertension Denies:: Cancer, Diabetes Mellitus Type 1, Diabetes Mellitus Type 2, Internal Pacemaker, MRSA, Seizures *Have you ever received a pneumonia vaccine?: Yes *Have you received a flu vaccine this season?: Yes Other Medical History: Reports: Hypothyroidism, Sinus Problems, Thyroid Disease, Other. Denies: Blood Transfusion Reaction Other Surgeries: Yes: No Previous Surgery, Cardiac Catheterization, Colonoscopy, , Hernia Repair, Hysterectomy-Total, Sinus Surgery, Tubal Ligation, Other (bladdertuck/ hemrroidectomy). No: Pacemaker Amputation: No Fractures: No - *Social History Smoking Status: Current every day smoker Tobacco Type: cigarettes # Packs/Day (cigarettes): 2 Alcohol Intake: never Substance Use Type: denies use *Occupational Status:: other Housing: house Household Members: family *Travel in the last 8 weeks: None - Psychiatric History Pschychiatric History:: Reports:: Anxiety Family Hx:: Anemia, Heart Attack, Hypertension
== END ==
PROVIDERS: Visit Provider Clinical Nurse Specialist Family Health
DX: M51.16 Intervertebral disc disorders with radiculopathy, lumbar region (principal); M96.1 Postlaminectomy syndrome, not elsewhere classified
CPT/HCPCS: 99212; G0463

== ENCOUNTER → 2020-12-16 08:22 | Outpatient (CLI) | payer MEDICARE, SELFPAY ==
--- NOTE | 2020-12-16 08:25 | CT_ITS ---
PROCEDURE: CT HEAD/BRAIN WO CON CLINICAL INDICATION: BRONCHITIS,DIZZINESS,LOSS OF BALANCE,RECURRENT CISNEROS COMPARISON: CT HDWO CT HEAD W/O CONTRAST from 03/15/2017 TECHNIQUE: Axial images obtained. All CT scans at the facility use one or more dose reduction, viz: automated exposure control, ma/kV adjustment per patient size (including targeted exams where dose is matched to indication, i.e. head), or iterative reconstruction technique. FINDINGS: No midline shift, mass effect, intracranial hemorrhage, hydrocephalus, or extra-axial fluid collection is evident. The calvarium has an unremarkable appearance. No mastoid effusion. No sinus air-fluid level. IMPRESSION: No acute intracranial finding Dictated by: Fidencio Rand MD 12/16/2020 17:23 Fidencio Rand MD in [place] 12/16/2020 17:23
--- NOTE | 2020-12-16 08:47 | CA_ITS ---
APPROVED REPORT Pig Conveyor Operator: GORAN/WILLIAM Laterality: Bilateral Study Quality: Excellent Indications: follow up for carotid stenosis Risk Factors Hypertension: Hyperlipidemia Smoking Doppler Spectral Velocity Analysis ECA (R) 113.10/9.40 cm/s ECA (L) 106.20/12.00 cm/s dICA (R) 124.20/26.60 cm/s dICA (L) 121.20/34.40 cm/s Yvette (R) 112.20/27.40 cm/s Yvette (L) 100.00/25.00 cm/s pICA (R) 116.50/17.10 cm/s pICA (L) 86.00/17.00 cm/s dCCA (R) 88.30/16.50 cm/s dCCA (L) 115.20/23.20 cm/s pCCA (R) 69.60/10.50 cm/s pCCA (L) 82.20/18.00 cm/s Vert (R) 57.10/6.40 cm/s Vert (L) 63.60/18.70 cm/s ICA/CCA 1.77 ICA/CCA 1.47 Findings Duplex evaluation demonstrates stenosis of the right proximal internal carotid artery in the range of 20-49% with PSV <140 cm/sec, EDV <100 cm/sec, and IC/CC Ratio <4.0.Duplex evaluation demonstrates stenosis of the left proximal internal carotid artery in the range of 20-49% with PSV <140 cm/sec, EDV <100 cm/sec, and IC/CC Ratio <4.0. Duplex evaluation demonstrates antegrade flow of the bilateral Vertebral Arteries. Conclusion Duplex evaluation demonstrates stenosis of the right proximal internal carotid artery in the range of 20-49% with PSV <140 cm/sec, EDV <100 cm/sec, and IC/CC Ratio <4.0.Duplex evaluation demonstrates stenosis of the left proximal internal carotid artery in the range of 20-49% with PSV <140 cm/sec, EDV <100 cm/sec, and IC/CC Ratio <4.0. Duplex evaluation demonstrates antegrade flow of the bilateral Vertebral Arteries. Electronically signed by : Fidencio Rand MD 12/16/2020 11:13:03
== END ==
PROVIDERS: PCP Nurse Practitioner Family; Visit Provider Nurse Practitioner Family
DX: R42 Dizziness and giddiness; I65.23 Occlusion and stenosis of bilateral carotid arteries
CPT/HCPCS: 70450; 93880

== ENCOUNTER → 2020-12-18 11:30 | Outpatient (POV) | payer MEDICARE, SELFPAY ==
[2020-12-18 11:49] VITALS: BP 162/63; PULSE 77; RESP 18; O2SAT 98; BMI 38.2
--- NOTE | 2020-12-22 08:33 | P.CONS_ITS ---
[facility] Pain Management SOAP Note Subjective:: Patient is a pleasant 60-year-old white female who presents today for follow-up. Patient had permanent placement of her [employer] spinal stimulator and was doing extremely well until last night. She came in today rating her pain a 10 out of 10 mostly in her low back. Patient was sent for x-rays to help determine any issues with her neurostimulator. We will also give her a week's worth of steroids. ROS General: no recent weight change, no fever, no sleep disturbances Respiratory: no cough, no shortness of air, no recurring pulmonary infections Cardiovascular/Peripheral Vascular: No chest pain, No palpitations, no edema, no shortness of breath. Gastrointestinal: no new onset incontinence, normal bowel movements reported Genitourinary: no new onset incontinence Musculoskeletal: Back pain, Psychiatric: normal mood/ affect Neurological: [denies new onset weakness in extremities], [denies new onset balance issues] Objective:: Physical Exam General: Alert and oriented x3, no acute distress, pleasant and cooperative, [on room air] Lungs: Resps E/U, Symmetrical chest expansion, Eyes: PERRL Musculoskeletal: Flexion and extension of lumbar spine somewhat guarded secondary to pain, deep tendon reflexes normal, strength in upper and lower extremities [5/5], [abnormal gait noted] Neurological: speech clear, network controller equal, no gross sensory deficits Assessment:: Degenerative disc disease lumbar spine lumbar radiculopathy, postlaminectomy syndrome lumbar spine Plan:: We will see the patient back in 1 week reassess her symptoms we will give her prednisone 20 mg 1 p.o. twice daily for 5 days. We will also send her for x- rays. We will contact her if there is any issues with her x-rays. She has been instructed to call our office if her symptoms worsen. Dr. Shields has reviewed this note and agrees with this plan of care. This note was dictated using voice recognition software and may contain errors or omissions [facility] History I have reviewed the patient's past medical history: Yes Medical History: Reports:: Anxiety, Chronic Obstructive Pulmonary Disease (COPD), Gastroesophageal Reflux Disease(GERD), Home Oxygen, Hyperlipidemia, Hypertension Denies:: Cancer, Diabetes Mellitus Type 1, Diabetes Mellitus Type 2, Internal Pacemaker, MRSA, Seizures *Have you ever received a pneumonia vaccine?: Yes *Have you received a flu vaccine this season?: Yes Other Medical History: Reports: Hypothyroidism, Sinus Problems, Thyroid Disease, Other. Denies: Blood Transfusion Reaction Other Surgeries: Yes: No Previous Surgery, Cardiac Catheterization, Colonoscopy, , Hernia Repair, Hysterectomy-Total, Sinus Surgery, Tubal Ligation, Other (bladdertuck/ hemrroidectomy). No: Pacemaker Amputation: No Fractures: No - *Social History Smoking Status: Current every day smoker Tobacco Type: cigarettes # Packs/Day (cigarettes): 2 Alcohol Intake: never Substance Use Type: denies use *Occupational Status:: other Housing: house Household Members: family *Travel in the last 8 weeks: None - Psychiatric History Pschychiatric History:: Reports:: Anxiety Family Hx:: Anemia, Heart Attack, Hypertension
== END ==
PROVIDERS: Visit Provider Clinical Nurse Specialist Family Health
DX: M51.16 Intervertebral disc disorders with radiculopathy, lumbar region (principal); M96.1 Postlaminectomy syndrome, not elsewhere classified; M54.9 Dorsalgia, unspecified
CPT/HCPCS: 72084; 99212; G0463

== ENCOUNTER → 2020-12-18 12:06 | Outpatient (CLI) | payer MEDICARE, SELFPAY ==
--- NOTE | 2020-12-18 12:09 | XR_ITS ---
PROCEDURE: XR MULTIPLE SPINE 6+V CLINICAL INDICATION: BACK PAIN COMPARISON: No exams were available for comparison FINDINGS: Thoracic spine: Four views spinal stimulator device is present in the midthoracic region. No acute fracture or dislocation. No lytic or blastic change. Thoracic spondylosis noted with mild degenerative Lumbar spine: Degenerative disc disease L3-S1 and to lesser degree at L2-L3. Endplate osteophytes are present with endplate sclerosis at L3-L4 and L5. No acute fracture or dislocation. No lytic or blastic change. IMPRESSION: Thoracic and lumbar spondylosis No acute fracture Dictated by: Fidencio Rand MD 12/18/2020 18:07 Fidencio Rand MD in [place] 12/18/2020 18:07
== END ==
PROVIDERS: PCP Nurse Practitioner Family; Visit Provider Clinical Nurse Specialist Family Health
DX: M54.6 Pain in thoracic spine (principal); M54.5 Low back pain
CPT/HCPCS: 72084

== ENCOUNTER → 2020-12-22 09:10 | Outpatient (POV) | payer MEDICARE, SELFPAY ==
[2020-12-22 09:30] VITALS: BP 169/77; PULSE 112; RESP 18; O2SAT 98; BMI 38.2
--- NOTE | 2020-12-22 09:51 | P.CONS_ITS ---
[facility] Pain Management SOAP Note Subjective:: Patient is a 60-year-old white female who presents today for follow-up. At her last visit she was having a significant flare in her pain. Today it is improved she rates her pain a 6 out of 10. She had x-rays that showed no changes in her neurostimulator leads. Patient has an appointment with the client services representative of [employer] to have her neurostimulator reprogrammed on Tuesday. Patient and I discussed her completing her round of steroids and then potentially utilizing a muscle relaxer. She is agreeable. ROS General: no recent weight change, no fever, no sleep disturbances Respiratory: no cough, no shortness of air, no recurring pulmonary infections Cardiovascular/Peripheral Vascular: No chest pain, No palpitations, no edema, no shortness of breath. Gastrointestinal: no new onset incontinence, normal bowel movements reported Genitourinary: no new onset incontinence Musculoskeletal: [Back pain] Psychiatric: normal mood/ affect Neurological: [denies new onset weakness in extremities], [denies new onset balance issues] Objective:: Physical Exam General: Alert and oriented x3, no acute distress, pleasant and cooperative, [on room air] Lungs: Resps E/U, Symmetrical chest expansion, Eyes: PERRL Musculoskeletal: Flexion and extension of lumbar spine somewhat guarded secondary to pain, deep tendon reflexes normal, strength in upper and lower extremities [5/5], [abnormal gait noted] Neurological: speech clear, head of mobile equal, no gross sensory deficits Assessment:: Degenerative disc disease lumbar spine lumbar radiculopathy and postlaminectomy syndrome Plan:: We will see the patient back in 1 week reassess her symptoms at that time. We will try the patient on Robaxin 500 mg daily to see if she has any issues with this she is to call our office. Dr. Shields has reviewed this note and agrees with this plan of care. This note was dictated using voice recognition software and may contain errors or omissions [facility] History I have reviewed the patient's past medical history: Yes Medical History: Reports:: Anxiety, Chronic Obstructive Pulmonary Disease (COPD), Gastroesophageal Reflux Disease(GERD), Home Oxygen, Hyperlipidemia, Hypertension Denies:: Cancer, Diabetes Mellitus Type 1, Diabetes Mellitus Type 2, Internal Pacemaker, MRSA, Seizures *Have you ever received a pneumonia vaccine?: Yes *Have you received a flu vaccine this season?: Yes Other Medical History: Reports: Hypothyroidism, Sinus Problems, Thyroid Disease, Other. Denies: Blood Transfusion Reaction Other Surgeries: Yes: No Previous Surgery, Cardiac Catheterization, Colonoscopy, , Hernia Repair, Hysterectomy-Total, Sinus Surgery, Tubal Ligation, Other (bladdertuck/ hemrroidectomy). No: Pacemaker Amputation: No Fractures: No - *Social History Smoking Status: Current every day smoker Tobacco Type: cigarettes # Packs/Day (cigarettes): 2 Alcohol Intake: never Substance Use Type: denies use *Occupational Status:: other Housing: house Household Members: family *Travel in the last 8 weeks: None - Psychiatric History Pschychiatric History:: Reports:: Anxiety Family Hx:: Anemia, Heart Attack, Hypertension
== END ==
PROVIDERS: PCP Internal Medicine; Visit Provider Clinical Nurse Specialist Family Health
DX: M51.16 Intervertebral disc disorders with radiculopathy, lumbar region (principal); M96.1 Postlaminectomy syndrome, not elsewhere classified
CPT/HCPCS: 99212; G0463

== ENCOUNTER → 2020-12-29 08:35 | Outpatient (POV) | payer MEDICARE, SELFPAY ==
[2020-12-29 08:44] VITALS: BP 152/74; PULSE 109; RESP 18; O2SAT 98; BMI 39.6
--- NOTE | 2020-12-29 09:02 | HMH.PAINSOAP ---
[facility] Pain Management SOAP Note Subjective:: Is a pleasant 60-year-old white female who presents today for follow-up. Patient overall doing extremely well. Patient did have a lower lumbar strain however her pain has resolved from that. Patient does not have any pain today. She is ambulating well. She is healed from her neurostimulator implant no sign symptoms of infection. Patient would like to follow-up in 3 months. ROS General: no recent weight change, no fever, no sleep disturbances Respiratory: no cough, no shortness of air, no recurring pulmonary infections Cardiovascular/Peripheral Vascular: No chest pain, No palpitations, no edema, no shortness of breath. Gastrointestinal: no new onset incontinence, normal bowel movements reported Genitourinary: no new onset incontinence Musculoskeletal: Back pain, leg pain at times Psychiatric: normal mood/ affect Neurological: [denies new onset weakness in extremities], [denies new onset balance issues] Objective:: Physical Exam General: Alert and oriented x3, no acute distress, pleasant and cooperative, [on room air] Lungs: Resps E/U, Symmetrical chest expansion, Eyes: PERRL Musculoskeletal: Flexion and extension of lumbar spine somewhat guarded secondary to pain, deep tendon reflexes normal, strength in upper and lower extremities [5/5], antalgic gait noted Neurological: speech clear, multi care technician equal, no gross sensory deficits Assessment:: Degenerative disc disease lumbar spine lumbar radiculopathy and postlaminectomy syndrome Plan:: We will see the patient back in 3 months reassess her symptoms at that time she has been instructed to call the office if she has any issues prior to her next appointment. Dr. Shields has reviewed this note and agrees with this plan of care. This note was dictated using voice recognition software and may contain errors or omissions [facility] History I have reviewed the patient's past medical history: Yes Medical History: Reports:: Anxiety, Chronic Obstructive Pulmonary Disease (COPD), Gastroesophageal Reflux Disease(GERD), Home Oxygen, Hyperlipidemia, Hypertension Denies:: Cancer, Diabetes Mellitus Type 1, Diabetes Mellitus Type 2, Internal Pacemaker, MRSA, Seizures *Have you ever received a pneumonia vaccine?: Yes *Have you received a flu vaccine this season?: Yes Other Medical History: Reports: Hypothyroidism, Sinus Problems, Thyroid Disease, Other. Denies: Blood Transfusion Reaction Other Surgeries: Yes: No Previous Surgery, Cardiac Catheterization, Colonoscopy, , Hernia Repair, Hysterectomy-Total, Sinus Surgery, Tubal Ligation, Other (bladdertuck/ hemrroidectomy). No: Pacemaker Amputation: No Fractures: No - *Social History Smoking Status: Current every day smoker Tobacco Type: cigarettes # Packs/Day (cigarettes): 2 Alcohol Intake: never Substance Use Type: denies use *Occupational Status:: other Housing: house Household Members: family *Travel in the last 8 weeks: None - Psychiatric History Pschychiatric History:: Reports:: Anxiety Family Hx:: Anemia, Heart Attack, Hypertension
== END ==
PROVIDERS: PCP Internal Medicine; Visit Provider Clinical Nurse Specialist Family Health
DX: M51.16 Intervertebral disc disorders with radiculopathy, lumbar region (principal); M96.1 Postlaminectomy syndrome, not elsewhere classified
CPT/HCPCS: 99212; G0463

== ENCOUNTER → 2021-01-05 10:06 | Outpatient (CLI) | payer MEDICARE, SELFPAY ==
--- NOTE | 2021-01-05 10:36 | XR_ITS ---
PROCEDURE: XR TIBIA FIBULA RT 2V CLINICAL INDICATION: RT LEG PAIN COMPARISON: No exams were available for comparison FINDINGS: No fracture or dislocation. No lytic or blastic change. There is normal mineralization. There are mild osteoarthritic changes at the knee including the medial and lateral compartment and patellofemoral joint. Small soft tissue calcification noted in the mid aspect of the leg medially and may be due to small phleboliths. Tiny calcific density noted along the anterior aspect of the patellar ligament dislocation Other findings:None. IMPRESSION: No acute finding. Mild osteoarthritic changes of the knee Dictated by: Fidencio Rand MD 01/05/2021 11:00 Fidencio Rand MD in [place] 01/05/2021 11:00
== END ==
PROVIDERS: PCP Nurse Practitioner Family; Visit Provider Nurse Practitioner Family
DX: Z01.812 Encounter for preprocedural laboratory examination (principal); Z20.822 Contact with and (suspected) exposure to COVID-19; Z12.11 Encounter for screening for malignant neoplasm of colon; M79.604 Pain in right leg
CPT/HCPCS: 73590; U0003

== ENCOUNTER 2021-01-07 06:19 | Day surgery (SDC) | payer MEDICARE, SELFPAY ==
[2020-12-31 13:44] VITALS: BMI 39.6
[2021-01-07 06:53] VITALS: BP 123/56; PULSE 87; RESP 18; TEMP 36.6; O2SAT 94
--- NOTE | 2021-01-07 07:11 | HMH.ANESCL ---
[facility] Anesthesia Checklist - Patient Identification Patient Identification: Arm Band - Structural Data Admitted From: Home Planned Operative Procedure/s: colonoscopy Consent for Planned Operative Procedure(s) Verified: Yes Verified Documents: Surgical Consent, History and Physical - NPO Status Verified Time NPO: 00:00 - Additional verifications Anesthesia Reactions: No Hx Blood Transfusions: No Blood Transfusion Reaction: No - Airway Assessment C-Spine Mobility Assessed: Yes (mp2) TMJ Mobility Assessed: Yes Dentition: Good Dentition - Neurological Assessment Level of Consciousness: Awake, Alert - Anesthesia Plan Anesthesia Risk discussed: Yes Anesthesia Plan: Verified ASA Class: III Anesthesia Type: MAC [facility] History I have reviewed the patient's past medical history: Yes Medical History: Reports:: Anxiety, Chronic Obstructive Pulmonary Disease (COPD), Gastroesophageal Reflux Disease(GERD), Home Oxygen, Hyperlipidemia, Hypertension Denies:: Cancer, Diabetes Mellitus Type 1, Diabetes Mellitus Type 2, Internal Pacemaker, MRSA, Seizures *Have you ever received a pneumonia vaccine?: Yes *Have you received a flu vaccine this season?: Yes Other Medical History: Reports: Hypothyroidism, Sinus Problems, Thyroid Disease, Other. Denies: Blood Transfusion Reaction Anesthesia experience/problems:: nac Other Surgeries: Yes: Cardiac Catheterization, Colonoscopy, , Hernia Repair, Hysterectomy-Total, Sinus Surgery, Tubal Ligation, Other (bladdertuck/ hemrroidectomy). No: Pacemaker Amputation: No Fractures: No - *Social History Smoking Status: Current every day smoker Tobacco Type: cigarettes # Packs/Day (cigarettes): 1 Alcohol Intake: never Substance Use Type: denies use *Occupational Status:: disabled Housing: house Household Members: spouse *Travel in the last 8 weeks: None - Psychiatric History Pschychiatric History:: Reports:: Anxiety Family Hx:: No significant family history
[2021-01-07 07:20] VITALS: O2SAT 94
[2021-01-07 08:27] VITALS: BP 120/55; PULSE 103; RESP 18; TEMP 36.8; O2SAT 99
--- NOTE | 2021-01-07 08:36 | HMH.SCOPE ---
- Procedure: Date: 01/07/21 Patient Date of :: 1960 Procedure Performed:: Total colonoscopy with biopsies and polypectomy Indications:: Patient recently presented to the office with complaints of rectal bleeding. I had performed a colonoscopy on her in 2016 and she had a small serrated adenoma near the ileocecal valve. I performed follow-up colonoscopy on 04/29/2020 and she had moderate serrated adenomas in the ascending colon which required piecemeal removal with hot snare and cold snare. She also has some diverticulosis. I had recommended a 1 year follow-up colonoscopy. However, the patient states that she has had some rectal bleeding. She states that she normally moves her bowels about 3 or 4 times a day. Over the past week she has had bright red rectal bleeding when wiping. She has had some minor burning discomfort. She also describes some change in the character of her stools. Given her prior history and symptomatology plan was made to proceed with full colonoscopy. Performing Provider:: Brendan Aguayo MD Referring Provider:: Kris Ibrahim MD Sedation:: MAC sedation Procedure:: Patient was taken to endoscopy procedure room. She was positioned in lateral decubitus position. Adequate intravenous sedation was achieved with anesthesia titration of propofol. Digital examination was performed which revealed diminished sphincter tone. There was visible irritated mucosa. Variable stiffness Olympus colonoscope was inserted via the anus. Within the rectum there was noted to be some inflammatory exudative lesion. Colonoscope was advanced to the cecum. Ileocecal valve and appendiceal orifice were clearly identified. Colonoscope was advanced a very brief short distance into the ileum. A couple of biopsies were obtained of the right colon as random right colon biopsies. There was a moderate adenomatous appearing polyp at the hepatic flexure which was partially removed with cold cutting snare. However could not be fully removed and this required hot snare. Just proximal to this there was a adenomatous appearing ridge polyp. This was removed with hot snare and required retrieval using the Dia net after maceration. There were left-sided diverticulosis mostly in the sigmoid colon. There was a diminutive polyp in the sigmoid colon removed with cold cutting snare. Within the rectum at the region of the inflammatory lesion multiple cold biopsies were obtained. Attempt was made at retroflexion which was unsuccessful. Just distal to this area of inflammation there was some anorectal mucosa which appeared similar and prolapsing. Colonoscope was withdrawn. Findings:: Hepatic flexure polyp, moderate Proximal hepatic flexure polyp, moderate to moderately large removed with hot snare and retrieved after maceration Diminutive sigmoid polyp Inflammatory exudative rectal lesion with similar appearing lesion in the anorectal region Recommendations:: Plan follow-up on the biopsies of the rectal lesion. 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 Regarding her polyps, given the early development of large polyps likely repeat colonoscopy 1 year. Complications:: None immediately apparent Estimated blood obtained (mL): 5
[2021-01-07 08:37] VITALS: BP 167/93; PULSE 96; RESP 18; O2SAT 100
[2021-01-07 08:47] VITALS: BP 163/83; PULSE 89; RESP 18; O2SAT 95
[2021-01-07 09:06] VITALS: BP 163/82; PULSE 90; RESP 18; O2SAT 95
--- NOTE | 2021-01-07 09:08 | SUR.PHASEII ---
PT WITH SOME MILD BLUE/PURPLE BRUISING TO L UPPER ARM FROM BP CUFF. ICE PACK APPLIED.
== END 2021-01-07 09:12 | disposition home or self-care (01) ==
LOC: OUTP 06:20
PROVIDERS: PCP Nurse Practitioner Family; Visit Provider Surgery
PROC: 0DJD8ZZ Inspection of Lower Intestinal Tract, Via Natural or Artificial Opening Endoscopic (ICD-10-PCS; principal; 2021-01-07 07:30)
DX: K63.5 Polyp of colon (principal); K62.9 Disease of anus and rectum, unspecified; K57.30 Diverticulosis of large intestine without perforation or abscess without bleeding; Z87.19 Personal history of other diseases of the digestive system; F41.9 Anxiety disorder, unspecified; J44.9 Chronic obstructive pulmonary disease, unspecified; K21.9 Gastro-esophageal reflux disease without esophagitis; E78.5 Hyperlipidemia, unspecified; I10 Essential (primary) hypertension; E03.9 Hypothyroidism, unspecified; Z99.81 Dependence on supplemental oxygen; Z72.0 Tobacco use
CPT/HCPCS: 45380; 45385; 88305; J2704

== ENCOUNTER 2021-01-11 19:41 | Emergency (ER) | payer MEDICARE, SELFPAY ==
[2021-01-11 19:43] VITALS: BP 141/80; PULSE 97; RESP 20; TEMP 37; O2SAT 96; BMI 38.2
--- NOTE | 2021-01-11 20:08 | CT_ITS ---
PROCEDURE INFORMATION: Exam: CT Abdomen And Pelvis With Contrast Exam date and time: 01/11/2021 8:08 PM Age: 60 years old Clinical indication: Prior surgery; Surgery date: 3-7 days post-operative; Patient HX: Rectal pain since colonoscopy 4 days ago; Additional info: Abd pain TECHNIQUE: Imaging protocol: Computed tomography of the abdomen and pelvis with contrast. Radiation optimization: All CT scans at this facility use at least one of these dose optimization techniques: automated exposure control; mA and/or kV adjustment per patient size (includes targeted exams where dose is matched to clinical indication); or iterative reconstruction. Contrast material: ISOVUE; Contrast volume: 75 ml; Contrast route: IV; Other contrast: Oral, gastro, 20; COMPARISON: ABDPELW CT abdomen pelvis w con 03/03/2018 2:42 PM FINDINGS: Lungs: Peripheral fibrotic changes at the lung bases. Liver: Unremarkagble.No mass. Gallbladder and bile ducts: Normal. No calcified stones. No ductal dilation. Pancreas: Normal. No ductal dilation. Spleen: Small/punctate calcified granulomas of the spleen. Adrenal glands: Normal. No mass. Kidneys and ureters: Normal. No hydronephrosis. Stomach and bowel: Mild thickening of the wall the right colon include the fatty flexure is concerning for colitis of infectious or inflammatory etiology. Appendix: No evidence of appendicitis. Intraperitoneal space: Unremarkable. No free air. No significant fluid collection. Vasculature: Unremarkable. No abdominal aortic aneurysm. Lymph nodes: Unremarkable. No enlarged lymph nodes. Urinary bladder: Unremarkable as visualized. Reproductive: Unremarkable as visualized. Bones/joints: No suspicious lytic or sclerotic lesions of bone. Lower lumbar spine degenerative changes. Soft tissues: Unremarkable. IMPRESSION: Mild thickening of the wall the right colon include the fatty flexure is concerning for colitis of infectious or inflammatory etiology. No abscess or perforation. No bowel obstruction.
--- NOTE | 2021-01-11 20:10 | HMH.EDNVD ---
ED Disposition Clinical Impression: Rectal prolapse Abdominal pain Qualifiers: Abdominal location: right lower quadrant Qualified Code(s): R10.31 - Right lower quadrant pain Disposition: Home, Self-Care Condition on Discharge: Good Instructions: DI for Acute Abdominal Pain Additional Instructions: call pcp and dr mackenzie in am Referrals: Telma Naylor APRN [Primary Care Provider] - - Critical Care Critical Care Time: No Attestation: On 01/11/21, the high probability of a clinically significant, sudden or life threatening deterioration of the following system(s) required my full and direct attention, intervention and personal management. The time I documented below is in addition to time spent performing reported procedures but includes the following listed in this critical care notation. Medical Decision Making - Medical Records Medical records reviewed: Yes: I reviewed the patient's medical records. - Je Inquiry Pt receiving controlled substance: No Vital Signs: 01/11/21 19:43 01/11/21 20:42 01/11/21 21:21 Temperature 98.6 F Temperature Source Oral Pulse Rate 98 H 97 H Pulse Rate [Right Radial] 97 H Respiratory Rate 20 Blood Pressure 162/81 H 159/65 H Blood Pressure [Right Arm] 141/80 H Blood Pressure Mean Blood Pressure Mean [Right Arm] 100 Blood Pressure Source [Right Arm] Automatic Cuff Blood Pressure Position [Right Arm] Sitting 02 Sat by Pulse Oximetry 96 95 96 Oxygen Delivery Method Room Air 01/11/21 21:31 01/11/21 22:31 01/11/21 23:20 Temperature Temperature Source Pulse Rate 85 84 Pulse Rate [Right Radial] Respiratory Rate Blood Pressure 135/52 L 160/74 H 147/55 H Blood Pressure [Right Arm] Blood Pressure Mean 91 Blood Pressure Mean [Right Arm] Blood Pressure Source [Right Arm] Blood Pressure Position [Right Arm] 02 Sat by Pulse Oximetry 94 L 94 L Oxygen Delivery Method - Lab Data Lab results reviewed: Yes: I reviewed the patient's lab results. Lab Results 01/11/21 20:18: WBC 11.4 H, RBC 4.91, Hgb 12.6, Hct 40.3, MCV 82.0, MCH 25.7 L, MCHC 31.3 L, RDW 16.7, Plt Count 196, MPV 8.4, Neut % (Auto) 72.1, Lymph % (Auto) 18.8, [place] % (Auto) 4.7, Eos % (Auto) 3.8, Baso % (Auto) 0.7, Neut # (Auto) 8.2 H, Lymph # (Auto) 2.1, [place] # (Auto) 0.5, Eos # (Auto) 0.4, Baso # (Auto) 0.1, ESR 24 01/11/21 20:18: Sodium 138, Potassium 3.3 L, Chloride 103, Carbon Dioxide 35 H, Anion Gap 3.3 L, BUN 5 L, Creatinine 0.60, Estimated Creat Clear 198, Estimated GFR 102, Est GFR ( Amer) 124, Glucose 132 H, Calcium 8.8, Total Bilirubin 0.5, AST 29, ALT 26, Alkaline Phosphatase 110, C-Reactive Protein 56.6 H, Total Protein 6.7, Albumin 3.5, Globulin 3.2, Albumin/Globulin Ratio 1.1, Lipase 40, Procalcitonin 0.198 01/11/21 20:18: Amylase 47 01/11/21 23:00: Urine Color Yellow, Urine Appearance Clear, Urine pH 7.0, Ur Specific Adrian <= 1.005, Urine Protein Negative, Urine Glucose (UA) Negative, Urine Ketones Negative, Urine Blood Negative, Urine Nitrate Negative, Urine Bilirubin Negative, Urine Urobilinogen 0.2, Ur Leukocyte Esterase Negative, Urine RBC None, Urine WBC 3-5, Ur Squamous Epith Cells 10-20, Urine Bacteria Trace Result diagrams: 01/11/21 20:18 01/11/21 20:18 Orders (Tests/Meds): ED MEDICATIONS Generic Name Dose Route Start Last Admin Trade Name Freq PRN Reason Stop Dose Admin Sodium Chloride 1,000 mls @ 999 mls/hr 01/11/21 20:15 01/11/21 20:32 Sod Chlor 0.9% 1000ml Bag IV 01/11/21 21:15 999 mls/hr .[id number] CHINO Administration Discontinued Medications Generic Name Dose Route Start Last Admin Trade Name Freq PRN Reason Stop Dose Admin Diatrizoate Meglum/Diatrizoate Sod 30 ml 01/11/21 20:26 01/11/21 20:32 Diatrizoate [place] 66% & Diatrizoate Na 10% 30ml Udc PO 01/11/21 20:27 30 ml ONCE ONE Administration Diatrizoate Meglum/Diatrizoate Sod 30 ml 01/11/21 20:31 01/11/21 20:39 Diatrizoate [place] 66% & D
[2021-01-11 20:33] LABS: Basophils # 0.1 K/mm3 (0-0.2); Basophils % 0.7 % (0.1-2.0); Eosinophils # 0.4 K/mm3 (0.0-0.4); Eosinophils % 3.8 % (0.1-12.0); Hematocrit 40.3 % (37.0-47.0); Hemoglobin 12.6 g/dL (12.2-16.2); Lymphocytes # 2.1 K/mm3 (0.7-4.5); Lymphocytes % 18.8 % (10-50); Mean Corpuscular HGB Conc 31.3 g/dL (31.8-35.4); Mean Corpuscular Hemoglobin 25.7 pg (27.0-31.2); Mean Platelet Volume 8.4 fl (7.4-10.4); Monocytes # 0.5 K/mm3 (0.1-1.0); Monocytes % 4.7 % (1.7-9.3); Neutrophils # 8.2 K/mm3 (1.8-7.8); Neutrophils % 72.1 % (37.0-80.0); Platelet Count 196 K/mm3 (142-424); Red Blood Count 4.91 M/mm3 (4.20-5.40); Red Cell Distribution Width 16.7 % (11.5-17.5); White Blood Count 11.4 K/mm3 (4.8-10.8)
--- NOTE | 2021-01-11 20:38 | PC.NURSE ---
Pt completed oral contrast at this time, notified radiology of competition time.
[2021-01-11 20:42] VITALS: BP 162/81; PULSE 98; O2SAT 95
[2021-01-11 20:44] LABS: Alanine Aminotransferase 26 U/L (12-78); Albumin Level 3.5 g/dl (3.5-5.0); Albumin/Globulin Ratio 1.1 (1.1-1.8); Alkaline Phosphatase 110 U/L (38-126); Anion Gap 3.3 mEq/L (5-15); Aspartate Amino Transferase 29 U/L (14-36); Bilirubin,Total 0.5 mg/dl (0.2-1.3); Blood Urea Nitrogen 5 mg/dl (7-17); Calcium 8.8 mg/dl (8.4-10.2); Carbon Dioxide 35 mmol/L (22.0-30.0); Chloride 103 mmol/L (98-107); Creatinine Clearance Estimated 198 mL/min (50-200); Estimated Glomerular Filt Rate 102 ml/min (>60); GFR (African American) 124 ML/MIN (>60); Globulin 3.2 g/dL (1.3-3.2); Glucose 132 mg/dl (74-100); Lipase 40 U/L (23-300); Potassium 3.3 mmoL/L (3.5-5.1); Sodium 138 mmol/L (136-145); Total Protein,Serum 6.7 g/dl (6.3-8.2)
[2021-01-11 20:45] LABS: Amylase 47 U/L (30-110)
[2021-01-11 20:50] LABS: C-Reactive Protein 56.6 mg/L (0-4)
[2021-01-11 21:03] LABS: Procalcitonin 0.198 ng/mL (0.0-2.0)
[2021-01-11 21:13] LABS: Erythrocyte Sedimentation Rate 24 mm/hr (0-30)
[2021-01-11 21:21] VITALS: BP 159/65; PULSE 97; O2SAT 96
[2021-01-11 21:31] VITALS: BP 135/52; PULSE 85; O2SAT 94
--- NOTE | 2021-01-11 21:34 | PC.NURSE ---
MD Barrera s/w Dr. Banks at
[2021-01-11 22:31] VITALS: BP 160/74; PULSE 84; O2SAT 94
[2021-01-11 23:05] LABS: Microscopic, Urine URINE MICROSCOPIC (MICROSCOPIC)
[2021-01-11 23:10] LABS: Appearance,Urine CLEAR (Clear); Bilirubin,Urine Negative (Negative); Blood, Urine Negative (Negative); Color,Urine YELLOW (Yellow); Glucose,Urine (UA) Negative (Negative); Ketones,Urine Negative (Negative); Leukocyte Esterase,Urine Negative (Negative); Nitrate,Urine Negative (Negative); Protein,Urine Negative (Negative); Specific Gravity, Urine <= 1.005 (1.005-1.030); Urobilinogen,Urine 0.2 EU/dl (0.2)
[2021-01-11 23:15] LABS: Bacteria,Urine Trace /lpf
[2021-01-11 23:20] VITALS: BP 147/55
[2021-01-12 00:26] VITALS: BP 145/78; PULSE 83; RESP 20; TEMP 36.7; O2SAT 96
== END 2021-01-12 00:34 | disposition home or self-care (01) ==
PROVIDERS: Emergency Provider Emergency Medicine; PCP Nurse Practitioner Family
DX: K62.3 Rectal prolapse (principal); I10 Essential (primary) hypertension; E78.5 Hyperlipidemia, unspecified; J44.9 Chronic obstructive pulmonary disease, unspecified; K21.9 Gastro-esophageal reflux disease without esophagitis; E03.9 Hypothyroidism, unspecified; Z99.81 Dependence on supplemental oxygen; F17.210 Nicotine dependence, cigarettes, uncomplicated; Z79.899 Other long term (current) drug therapy
CPT/HCPCS: 74177; 80053; 81001; 82150; 83690; 84145; 85025; 85651; 86140; 96365; 96375; 99283; Q9967

== ENCOUNTER → 2021-01-13 09:49 | Outpatient (CLI) | payer MEDICARE, SELFPAY ==
[2021-01-13 10:32] LABS: Chloride 107 mmol/L (98-107); Potassium 4.4 mmoL/L (3.5-5.1); Sodium 141 mmol/L (136-145)
[2021-01-13 10:35] LABS: Anion Gap 7.4 mEq/L (5-15); Blood Urea Nitrogen 4 mg/dl (7-17); Calcium 8.6 mg/dl (8.4-10.2); Carbon Dioxide 31 mmol/L (22.0-30.0); Estimated Glomerular Filt Rate 126 ml/min (>60); GFR (African American) 153 ML/MIN (>60); Glucose 96 mg/dl (74-100)
[2021-01-13 10:41] LABS: NT Pro Brain Natriuretic Pep. 202 pg/mL (0-125)
== END ==
PROVIDERS: Visit Provider Internal Medicine Cardiovascular Disease
DX: E78.5 Hyperlipidemia, unspecified (principal); R60.0 Localized edema; I50.33 Acute on chronic diastolic (congestive) heart failure; I11.0 Hypertensive heart disease with heart failure
CPT/HCPCS: 36415; 80048; 83880

== ENCOUNTER → 2021-01-15 09:32 | Outpatient (CLI) | payer MEDICARE, SELFPAY ==
--- NOTE | 2021-01-15 09:33 | CA_ITS ---
APPROVED REPORT EXAM: Comprehensive 2D, Doppler, and color-flow Echocardiogram Statistical Clerk: Tricia Landin CRT Ht: 5 ft 11 in Wt: 281lbs BSA: 2.44 BP: 142/64 mmHg Indications: Congestive Heart Failure, COPD, Shortness of Breath, Obesity, Hyperlipidemia, Hypertension/HDD, smoker, Home o2 at night, GERD 2D Dimensions LVOT 1.91 cm (M/F) 1.5-2.5 LA Volume 57.60 mL LA Volume Index 23.60 mL/m2 (M/F) 16-34 M-Mode Dimensions RVDd 2.76 cm (0.9-2.6) LA Diam 4.20 cm (1.9-4.0) LVDd 5.33 cm (3.5-5.7) Ao Diam 3.55 cm (2.0-3.7) LVDs 3.35 cm (3.5-5.7) IVSd 1.50 cm (0.6-1.1) PWd 0.61 cm (0.6-1.1) EF (Teich) 66.60% FS 37.10% EDV (Teich) 137.10 mL TAPSE 1.87 (<1.7) ESV (Teich) 45.80 mL LV Diastology E Decel Time 237.00 (160-240 msec) E/A Ratio 0.81 MED E' 10.80 (< 7 cm/sec) MED A' 11.40 cm/s E'/MED E' Ratio 6.27 (>14) LAT E' 10.40 (<10 cm/sec) LAT A' 11.40 cm/s E/LAT E' Ratio 6.51 (>14) Aortic Valve AO Peak GR. 5.40 mmHg Mitral Valve MV A Velocity 83.00 (40-130 cm/s) E/A Ratio 0.81 MV Decel. Time 237.00 (160-240 ms) Pulmonary Valve PV Peak Velocity 162.00 (50-150 cm/s) Tricuspid Valve TR P. Velocity 259.00 cm/s RAP Estimate 10.00 mmHg RVSP 36.90 mmHg Left Ventricle Left atrium is mildly enlarged, left ventricle is normal size, mild concentric left ventricular hypertrophy, visually estimated ejection fraction 55% with no regional wall motion abnormality, grade 1 diastolic dysfunction seen without tissue Doppler evidence of raise left atrial pressure. Right Ventricle Right atrium and right ventricle are mildly enlarged with normal contractility. Aortic Valve Aortic valve is minimally thickened and fibrosed, there is no aortic stenosis or aortic insufficiency. Mitral Valve Mitral valve is grossly normal, there is mild mid mitral regurgitation. Tricuspid Valve Tricuspid valve grossly normal, there is mild tricuspid regurgitation, tricuspid regurgitation jet velocity is inadequate for calculation of the right ventricular systolic pressure. Pulmonic Valve Pulmonic valve is poorly visualized. Great Vessels Aortic root is normal size. Inferior vena cava is mildly dilated with normal inspiratory collapse. Pericardium No significant pericardial effusion noted. Conclusion 1. Biatrial enlargement, normal left ventricular size, mild concentric left ventricular hypertrophy, visually estimated ejection fraction 55% with no regional wall motion abnormality, and 1 diastolic dysfunction seen without tissue Doppler evidence of raise left atrial pressure. 2. Mildly enlarged right ventricle with normal contractility. 3. Mild mitral and tricuspid regurgitation. 4. No significant pericardial effusion noted. Electronically signed by : Dallas Gaxiola, 01/16/2021 13:54:59
== END ==
PROVIDERS: PCP Nurse Practitioner Family; Visit Provider Internal Medicine Cardiovascular Disease
DX: E78.5 Hyperlipidemia, unspecified (principal); R60.0 Localized edema; I50.33 Acute on chronic diastolic (congestive) heart failure; I11.0 Hypertensive heart disease with heart failure; R94.31 Abnormal electrocardiogram [ECG] [EKG]
CPT/HCPCS: 93306

== ENCOUNTER → 2021-02-09 18:30 | Outpatient (CLI) | payer MEDICARE, SELFPAY ==
[2021-02-11 15:18] LABS: C difficile Toxins AB, EIA Negative (Negative)
== END ==
PROVIDERS: Visit Provider Nurse Practitioner Family
DX: R19.7 Diarrhea, unspecified (principal)
CPT/HCPCS: 87045; 87324

== ENCOUNTER → 2021-03-11 07:54 | Outpatient (CLI) | payer MEDICARE, SELFPAY ==
--- NOTE | 2021-03-11 07:55 | CT_ITS ---
PROCEDURE: CT LUNG SCREENING CLINICAL INDICATION: lung cancer screening COMPARISON: CT CT CHEST WO CON from 04/15/2020 TECHNIQUE: The exam was performed on a GE Light Speed [address] scanner using 2.90 mGy CTDI. A low dose helical CT CHEST was performed on a multi-detector scanner. All CT scans at the facility use one or more dose reduction, viz: automated exposure control, ma/kV adjustment per patient size (including targeted exams where dose is matched to indication, i.e. head), or iterative reconstruction technique. The LDCT was performed in a facility that meets the criteria for the screening program. Data regarding this exam was submitted to ACR which is an approved registry. The order for this exam indicates that it came as a result of a lung cancer screening counseling shard decision-making visit that included all the elements required of such a visit including smoking cessation. The radiologist interpreting this exam meets the CMS criteria for the LDCT lung cancer screening program. The exam is reported using the Lung-RADS classification scale and reported to the ACR registry. NOTE: This study was performed for the specific purposes of lung cancer screening and is not an alternative to diagnostic chest CT. RADIATION DOSE: CTDI vol(CT dose Index-volume) = 2.90mG DLP (Dose Length Product) = 106.81 mGcm FINDINGS: COPD with centrilobular and paraseptal emphysematous changes with scattered areas of scarring and or atelectatic change. Pulmonary fibrotic changes are present in the lung bases. Subpleural and fissural opacities are unchanged. No suspicious nodules are identified. OTHER FINDINGS: Epidural stimulator device is present in the midthoracic region IMPRESSION: Lung-RADS Category 2 Benign Appearance or Behavior Follow-up: Continue annual screening with LDCT in 12 months Dictated by: Fidencio Rand MD 03/16/2021 09:01 Fidencio Rand MD in [place] 03/16/2021 09:01
== END ==
PROVIDERS: PCP Nurse Practitioner Family; Visit Provider Internal Medicine Pulmonary Disease
DX: Z87.891 Personal history of nicotine dependence (principal); Z12.2 Encounter for screening for malignant neoplasm of respiratory organs
CPT/HCPCS: 71271

== ENCOUNTER → 2021-03-19 08:01 | Outpatient (POV) | payer MEDICARE, SELFPAY ==
[2021-03-19 08:23] VITALS: BP 124/57; PULSE 99; RESP 20; O2SAT 92; BMI 36.6
--- NOTE | 2021-03-19 09:07 | HMH.PAINSOAP ---
[facility] Pain Management SOAP Note Subjective:: Patient is a 60-year-old white female who presents today for follow-up. She has been treated for degenerative disc disease lumbar spine with lumbar radiculopathy symptoms. Patient is here with a pain scale 10 out of 10. She is having pain in her bilateral lower extremities and low back area. She says her spinal cord stimulator?[place], is not giving her any relief. She is here today for reprogramming. She says her pain is worse with standing sitting and walking. She has tried home exercising as well as anti-inflammatories with no relief. Patient says the pain is radiating into her bilateral feet as well. She says that she is very tender to touch over her bilateral low back area and bilateral buttock. Review of Systems General: No recent weight changes, no fever, no sleep disturbances Respiratory: No cough, [no shortness of air], no recurring pulmonary infections Cardiovascular/peripheral vascular: No chest pain, no palpitations, [no edema], no shortness of breath Gastrointestinal: No new onset incontinence, normal bowel movements reported Genitourinary: No new onset incontinence Musculoskeletal: [] Low back pain radiating into bilateral lower extremities Psychiatric: [Normal mood/affect] Neurological: [Denies weakness in extremities], [denies balance issues] Objective:: Physical exam General: Alert and oriented x3, no acute distress, pleasant and cooperative, [on room air] Lungs: Respirations even and unlabored, symmetrical chest expansion Eyes: PERRL Musculoskeletal: Flexion and extension of [] lumbar [spine] somewhat guarded secondary to pain, strength in upper and lower extremities [5/5], [antalgic gait noted], positive Fani's test, positive compression test, positive distraction test Neurological: Speech clear, [die turner equal], no gross sensory deficit Assessment:: Degenerative disc disease lumbar spine with lumbar radiculopathy symptoms Plan:: Patient was reprogrammed today. She did not get much relief.. The retention representative spent over an hour with the patient reprogramming her. I will order the patient prednisone 20 mg 1 tablet p.o. twice daily for 5 days. I did discuss with the patient she would likely benefit from bilateral SI joint injections, however, she has deferred at this time. We will plan to see the patient back in the clinic in 2 weeks for reevaluation of symptoms following her prednisone. If she does not get any relief, she will need to undergo bilateral SI joint injections. Patient did inquire about removal of her spinal cord stimulator today and discussion of intrathecal pain pump. I did discuss with the patient she would need to undergo psychological evaluation and trial before implant. She says that she is unsure she wants to go this route at this time.. Patient has been instructed to contact the clinic with any concerns before the next appointment. Dr. Shields has reviewed this note and agrees with this plan of care. This note was dictated using voice recognition software and make contain errors or omissions. [facility] History I have reviewed the patient's past medical history: Yes Medical History: Reports:: Anxiety, Chronic Obstructive Pulmonary Disease (COPD), Gastroesophageal Reflux Disease(GERD), Home Oxygen, Hyperlipidemia, Hypertension Denies:: Cancer, Diabetes Mellitus Type 1, Diabetes Mellitus Type 2, Internal Pacemaker, MRSA, Seizures *Have you ever received a pneumonia vaccine?: Yes *Have you received a flu vaccine this season?: Yes Other Medical History: Reports: Hypothyroidism, Sinus Problems, Thyroid Disease, Other. Denies: Blood Transfusion Reaction Other Surgeries: Yes: No Previous Surgery, Cardiac Catheterization, Colonoscopy, , Hernia Repair, Hysterectomy-Total, Sinus Surgery, Tubal Ligation, Other (bladdertuck/ hemrroidectomy). No: Pacemaker Amputation: No Fractures: No - *Social History Smoking Status: Current every day
== END ==
PROVIDERS: PCP Nurse Practitioner Family; Visit Provider Clinical Nurse Specialist Family Health
DX: M51.16 Intervertebral disc disorders with radiculopathy, lumbar region (principal)
CPT/HCPCS: 99212; G0463

== ENCOUNTER → 2021-03-24 08:31 | Outpatient (CLI) | payer MEDICARE, SELFPAY ==
[2021-03-24 17:23] LABS: Adenovirus F 40/41, stool Not Detected (NotDetected); Astrovirus Not Detected (NotDetected); Campylobacter Not Detected (NotDetected); Clostridium Difficile A/B, PCR Not Detected (NotDetected); Cryptosporidium Not Detected (NotDetected); Cyclospora Cayetanesis Not Detected (NotDetected); Entamoeba histolytica Not Detected (NotDetected); Enteroaggregative E coli Not Detected (NotDetected); Enteropathogenic E coli Not Detected (NotDetected); Enterotoxigenic E coli Not Detected (NotDetected); Giardia lamblia Not Detected (NotDetected); Norovirus Not Detected (NotDetected); Plesimonas Shigalloides, PCR Not Detected (NotDetected); Rotavirus A Not Detected (NotDetected); Salmonella, PCR Not Detected (NotDetected); Sapovirus Not Detected (NotDetected); Shiga-like toxin E coli Not Detected (NotDetected); Shigella Enterovasive E coli Not Detected (NotDetected); Vibrio Cholerae Not Detected (NotDetected); Vibrio, PCR Not Detected (NotDetected); Yersinia Entercolitica, PCR Not Detected (NotDetected)
== END ==
PROVIDERS: Visit Provider Nurse Practitioner Family
DX: R19.7 Diarrhea, unspecified (principal)
CPT/HCPCS: 87506

== ENCOUNTER → 2021-03-28 11:07 | Outpatient (CLI) | payer MEDICARE, SELFPAY | PROVIDERS: Visit Provider Ophthalmology | DX: Z01.812 Encounter for preprocedural laboratory examination (principal); Z20.822 Contact with and (suspected) exposure to COVID-19 | CPT/HCPCS: U0003 ==

== ENCOUNTER 2021-03-31 06:22 | Day surgery (SDC) | payer MEDICARE, SELFPAY ==
[2021-03-26 15:10] VITALS: BMI 36.8
[2021-03-31] VITALS (7 sets, daily range): BP systolic 135–160; BP diastolic 61–90; PULSE 82–109; RESP 16–18; TEMP 36.2–36.3; O2SAT 90–100
== END 2021-03-31 08:12 | disposition home or self-care (01) ==
LOC: OR 06:25
PROVIDERS: PCP Nurse Practitioner Family; Visit Provider Ophthalmology
DX: H25.813 Combined forms of age-related cataract, bilateral (principal); H53.149 Visual discomfort, unspecified; H02.831 Dermatochalasis of right upper eyelid; H02.834 Dermatochalasis of left upper eyelid; E78.5 Hyperlipidemia, unspecified; I10 Essential (primary) hypertension; E03.9 Hypothyroidism, unspecified; F41.9 Anxiety disorder, unspecified; J44.9 Chronic obstructive pulmonary disease, unspecified; K21.9 Gastro-esophageal reflux disease without esophagitis; Z88.1 Allergy status to other antibiotic agents; Z88.6 Allergy status to analgesic agent
CPT/HCPCS: 66984; 36415; 82565; 84520; V2632

== ENCOUNTER → 2021-03-31 08:58 | Outpatient (CLI) | payer MEDICARE, SELFPAY ==
[2021-03-31 09:27] LABS: Blood Urea Nitrogen 6 mg/dl (7-17); Estimated Glomerular Filt Rate 126 ml/min (>60); GFR (African American) 153 ML/MIN (>60)
== END ==
PROVIDERS: Visit Provider Nurse Practitioner Family
DX: R19.7 Diarrhea, unspecified (principal); R19.5 Other fecal abnormalities; R10.9 Unspecified abdominal pain
CPT/HCPCS: 36415; 82565; 84520

== ENCOUNTER → 2021-04-10 08:31 | Outpatient (CLI) | payer MEDICARE, SELFPAY ==
--- NOTE | 2021-04-10 08:31 | CT_ITS ---
PROCEDURE: CT ABDOMEN PELVIS W CON CLINICAL INDICATION: lung cancer screening The left-sided abdominal pain COMPARISON: CT CT ABDOMEN PELVIS W CON from 01/11/2021 TECHNIQUE: IV Contrast: 75ML Isovue 370 Oral Contrast 450ml Redicat Axial images obtained with sagittal and coronal reformats. All CT scans at the facility use one or more dose reduction, viz: automated exposure control, ma/kV adjustment per patient size (including targeted exams where dose is matched to indication, i.e. head), or iterative reconstruction technique. FINDINGS: LOWER THORAX: Pulmonary fibrotic changes in the lung bases posteriorly and inferiorly with atelectasis or fibrosis within the lingula. ABDOMEN & PELVIS: 2 small hypodensities of the liver once again noted consistent with cysts unchanged. The spleen, adrenal glands, pancreas, and kidneys have an unremarkable appearance. No radiopaque gallstones evident. No intestinal obstruction or free air. No evidence of appendicitis. Unremarkable bowel gas pattern. There are few colonic diverticula but no evidence of diverticulitis. There has been a prior hysterectomy. There is a small umbilical hernia containing fat. Degenerative changes are present in the lumbar spine with mild lumbar curvature convex left. There is minimal dilatation of the infrarenal abdominal aorta at 2.6 cm. Epidural stimulator device is present. IMPRESSION: No acute finding. Dictated by: Fidencio Rand MD 04/10/2021 09:45 Fidencio Rand MD in [place] 04/10/2021 09:45
== END ==
PROVIDERS: PCP Nurse Practitioner Family; Visit Provider Nurse Practitioner Family
DX: R10.9 Unspecified abdominal pain (principal); R19.7 Diarrhea, unspecified; R19.5 Other fecal abnormalities
CPT/HCPCS: 74177; Q9967

== ENCOUNTER → 2021-04-20 11:18 | Outpatient (CLI) | payer MEDICARE, SELFPAY | PROVIDERS: PCP Nurse Practitioner Family; Referring Provider Nurse Practitioner Family; Visit Provider Nurse Practitioner Family | DX: Z20.822 Contact with and (suspected) exposure to COVID-19 (principal) | CPT/HCPCS: U0003 ==

== ENCOUNTER → 2021-04-27 10:25 | Outpatient (CLI) | payer MEDICARE, SELFPAY | PROVIDERS: Visit Provider Surgery | DX: Z01.812 Encounter for preprocedural laboratory examination (principal); Z20.822 Contact with and (suspected) exposure to COVID-19; Z13.810 Encounter for screening for upper gastrointestinal disorder | CPT/HCPCS: U0003 ==

== ENCOUNTER 2021-04-29 08:44 | Day surgery (SDC) | payer MEDICARE, SELFPAY ==
[2021-04-22 12:05] VITALS: BMI 37.8
[2021-04-29 09:05] VITALS: BP 137/45; PULSE 84; RESP 18; TEMP 37.1; O2SAT 94
--- NOTE | 2021-04-29 09:49 | HMH.ANESCL ---
[facility] Anesthesia Checklist - Structural Data Admitted From: Home Planned Operative Procedure/s: egd Consent for Planned Operative Procedure(s) Verified: Yes - Additional verifications Anesthesia Reactions: No Hx Blood Transfusions: No Blood Transfusion Reaction: No - Airway Assessment C-Spine Mobility Assessed: Yes TMJ Mobility Assessed: Yes Dentition: Dentures-good fit - Neurological Assessment Level of Consciousness: Awake, Alert, Appropriate - Anesthesia Plan Anesthesia Risk discussed: Yes Anesthesia Plan: Verified ASA Class: III Anesthesia Type: MAC [facility] History I have reviewed the patient's past medical history: Yes Medical History: Reports:: Anxiety, Chronic Obstructive Pulmonary Disease (COPD), Gastroesophageal Reflux Disease(GERD), Home Oxygen, Hyperlipidemia, Hypertension, MRSA Denies:: Cancer, Diabetes Mellitus Type 1, Diabetes Mellitus Type 2, Internal Pacemaker, Seizures *Have you ever received a pneumonia vaccine?: Yes *Have you received a flu vaccine this season?: Yes Other Medical History: Reports: Hypothyroidism, Sinus Problems, Thyroid Disease, Other. Denies: Blood Transfusion Reaction Anesthesia experience/problems:: none Laterality Cases: Left: Cataract Other Surgeries: Yes: No Previous Surgery, Cardiac Catheterization, Colonoscopy, , Hernia Repair, Hysterectomy-Total, Sinus Surgery, Tubal Ligation, Other. No: Pacemaker Amputation: No Fractures: No - *Social History Last grade of school completed: High school graduate Smoking Status: Current every day smoker Tobacco Type: cigarettes # Packs/Day (cigarettes): 2 Alcohol Intake: never Substance Use Type: denies use *Occupational Status:: disabled Housing: house Household Members: family *Travel in the last 8 weeks: None - Psychiatric History Pschychiatric History:: Reports:: Anxiety Family Hx:: No significant family history
--- NOTE | 2021-04-29 09:56 | P.PCN_ITS ---
- Procedure: Date: 04/29/21 Patient Date of :: 1960 Procedure Performed:: Esophagogastroduodenoscopy with biopsies Indications:: Patient is a 60-year-old female smoker with COPD on prednisone from [place] referred by Justina Naylor for upper endoscopy. She is well-known to me as I have performed previous colonoscopies on her. Most recently she had had painful rectal bleeding and was noted to have rectal prolapse with solitary rectal ulcer which was taken care of in [place] by colorectal surgery. She gives a several month history since that time of some vague abdominal pains. She states that this is mostly along the left lateral abdomen and left flank area. She also describes symptoms of indigestion and generalized abdominal discomfort. It seems to be worse with certain foods such as beans and salads. She does have some occasional symptoms of dysphagia feeling like food may get stuck in her throat. Plan to perform upper endoscopy to assess for upper GI etiology for her symptoms of dysphagia and generalized abdominal pain and left flank pain. Performing Provider:: Brendan Aguayo MD Referring Provider:: Justina Naylor Sedation:: MAC sedation Procedure:: Patient was taken to the endoscopy procedure room and positioned in lateral decubitus position. Adequate intravenous sedation was achieved with anesthesia titration of propofol. Olympus endoscope was inserted via the oropharynx. Esophagus was cannulated and the endoscope was advanced. Gastroesophageal junction was encountered at approximately 43 cm from the incisors. Stomach was cannulated and insufflated. Retroflexion was performed however good visualization of the gastroesophageal junction was unable to be obtained. 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 There was an area of moderate gastritis within the mid body of the stomach. Gastric antral mucosal biopsies obtained for CLOtest for H. pylori. Pylorus was traversed. Duodenal bulb and duodenal sweep appeared unremarkable. Endoscope was withdrawn to the gastric lumen once again. Several gastric antral mucosal biopsies were obtained. Biopsies were obtained of the regional area of gastritis in the mid body. Biopsies were obtained at the gastroesophageal junction as well as in the distal esophagus to rule out microscopic esophagitis. Endoscope was withdrawn. 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 pylori status. May need higher dose proton pump inhibitor. Complications:: None immediately apparent Estimated blood obtained (mL): 2
[2021-04-29 10:06] VITALS: O2SAT 94
[2021-04-29 10:22] VITALS: BP 119/58; PULSE 69; RESP 18; TEMP 36.2; O2SAT 94
[2021-04-29 10:32] VITALS: BP 125/72; PULSE 76; RESP 18; O2SAT 93
[2021-04-29 10:42] VITALS: BP 120/52; PULSE 74; RESP 18; O2SAT 92
[2021-04-29 10:52] VITALS: BP 147/59; PULSE 65; RESP 18; O2SAT 92
== END 2021-04-29 10:52 | disposition home or self-care (01) ==
LOC: OUTP 08:46
PROVIDERS: PCP Nurse Practitioner Family; Visit Provider Surgery
PROC: 0DJ08ZZ Inspection of Upper Intestinal Tract, Via Natural or Artificial Opening Endoscopic (ICD-10-PCS; CPT 43235; principal; 2021-04-29 10:00)
DX: K29.60 Other gastritis without bleeding; K31.819 Angiodysplasia of stomach and duodenum without bleeding; J44.9 Chronic obstructive pulmonary disease, unspecified; K21.9 Gastro-esophageal reflux disease without esophagitis; E78.5 Hyperlipidemia, unspecified; I10 Essential (primary) hypertension; F41.9 Anxiety disorder, unspecified; Z99.81 Dependence on supplemental oxygen; Z86.14 Personal history of Methicillin resistant Staphylococcus aureus infection; E03.9 Hypothyroidism, unspecified; Z72.0 Tobacco use; Z88.1 Allergy status to other antibiotic agents
CPT/HCPCS: 43239; 87339; 88305

== ENCOUNTER → 2021-05-02 11:40 | Outpatient (CLI) | payer MEDICARE, SELFPAY | PROVIDERS: Visit Provider Ophthalmology | DX: Z01.812 Encounter for preprocedural laboratory examination (principal) | CPT/HCPCS: C9803; U0003; U0005 ==

== ENCOUNTER 2021-05-05 08:51 | Day surgery (SDC) | payer MEDICARE, SELFPAY ==
[2021-04-30 11:00] VITALS: BMI 36.8
[2021-05-05 08:57] VITALS: BP 131/55; PULSE 85; RESP 16; TEMP 36.5; O2SAT 90
[2021-05-05 11:32] VITALS: BP 131/62; PULSE 68; RESP 18; O2SAT 95
[2021-05-05 11:37] VITALS: BP 131/63; PULSE 68; RESP 18; O2SAT 97
[2021-05-05 11:42] VITALS: BP 135/58; PULSE 68; RESP 18; O2SAT 97
[2021-05-05 11:46] VITALS: BP 154/76; PULSE 78; RESP 18; TEMP 36.4; O2SAT 93
[2021-05-05 11:47] VITALS: BP 133/61; PULSE 66; RESP 18; O2SAT 98
== END 2021-05-05 12:05 | disposition home or self-care (01) ==
LOC: OR 08:52
PROVIDERS: PCP Nurse Practitioner Family; Visit Provider Ophthalmology
DX: H25.813 Combined forms of age-related cataract, bilateral (principal); H53.149 Visual discomfort, unspecified; H02.831 Dermatochalasis of right upper eyelid; H02.834 Dermatochalasis of left upper eyelid; I10 Essential (primary) hypertension; J44.9 Chronic obstructive pulmonary disease, unspecified; E78.5 Hyperlipidemia, unspecified; M19.90 Unspecified osteoarthritis, unspecified site; K21.9 Gastro-esophageal reflux disease without esophagitis; Z79.82 Long term (current) use of aspirin; Z79.899 Other long term (current) drug therapy; Z88.8 Allergy status to other drugs, medicaments and biological substances; Z72.0 Tobacco use
CPT/HCPCS: 66984; V2632

== ENCOUNTER → 2021-05-18 20:54 | Outpatient (CLI) | payer MEDICARE, SELFPAY | PROVIDERS: Visit Provider Nurse Practitioner Family | DX: Z20.822 Contact with and (suspected) exposure to COVID-19 (principal) | CPT/HCPCS: C9803; U0003; U0005 ==

== ENCOUNTER 2021-05-25 13:35 | Emergency (ER) | payer MEDICARE, SELFPAY ==
[2021-05-25 13:42] VITALS: PULSE 87; RESP 18; O2SAT 95; BMI 36.8
[2021-05-25 13:45] VITALS: BP 123/57; PULSE 87; RESP 18; TEMP 36.8; O2SAT 95; BMI 36.9
--- NOTE | 2021-05-25 13:49 | XR_ITS ---
PROCEDURE: XR RIBS LT MIN 3V W CXR1V CLINICAL INDICATION: FALL, PAIN TO RIB AREA COMPARISON: CR XR CHEST 2V from 05/18/2019 DX XR CHEST 2V from 06/15/2019 DX XR CHEST 2V from 10/25/[address] CHEST WO CON from 04/15/2020 FINDINGS: Frontal view of the chest shows chronic changes in the right upper lobe. There is minimal left basilar atelectasis. There is no evidence of pneumothorax. Neurostimulator device is present with 2 leads in the midthoracic spine at T7 and T8. There is also some mild scarring in the left upper lobe Multiple views of the left ribs show no displaced fracture IMPRESSION: No acute fracture apparent. Dictated by: Fidencio Rand MD 05/25/2021 15:07 Fidencio Rand MD in [place] 05/25/2021 15:07
[2021-05-25 14:47] VITALS: BP 123/57; PULSE 87; RESP 18; TEMP 36.8; O2SAT 95
--- NOTE | 2021-05-25 15:00 | HMH.EDUTC ---
[facility] [place] Clinical Impression: Rib pain on left side Fall Qualifiers: Encounter type: initial encounter Qualified Code(s): W19.XXXA - Unspecified fall, initial encounter Disposition: Home, Self-Care Condition on Discharge: Good Instructions: DI for Rib Contusion Additional Instructions: Use the incentive spirometer 10 times every 2 hours or so while you are awake for the next couple of weeks to help prevent yourself from getting pneumonia. Take the medications as directed. Follow up with your primary care doctor if you continue to have this bad of pain. You may need a stronger pain medication. Being able to breath deep and cough is important with rib pain to prevent pneumonia. You could apply a heating pad or a warm towel to the affected area of your ribs. Please be careful and don't burn yourself with a heating pad. Rest and don't be lifting anything heavy or straining against any thing. This will make your pain worse and make you heal slower. Follow up with your primary care doctor. Finish the steroids that you are already on. GO TO THE ER FOR ANY WORSENING SYMPTOMS OR CONCERNS, ESPECIALLY ANY FEVER, CHILLS, SHORTNESS OF BREATH Prescriptions: Ibuprofen [Ibuprofen 600mg Tablet] 600 mg PO Q6HP PRN #30 tab PRN Reason: Mild Pain Transmission [id number] Referrals: Telma Naylor APRN [Primary Care Provider] - Time of Disposition: 15:06 Medical Decision Making - Medical Records Medical records reviewed: No: I reviewed the patient's medical records. - Je Inquiry Pt receiving controlled substance: No Vital Signs: 05/25/21 13:42 05/25/21 13:45 05/25/21 14:47 Temperature 98.2 F 98.2 F Temperature Source Oral Pulse Rate 87 Pulse Rate [Left Radial] 87 87 Respiratory Rate 18 18 18 Blood Pressure 123/57 L Blood Pressure [Right Arm] 123/57 L Blood Pressure Mean [Right Arm] 79 Blood Pressure Source [Right Arm] Automatic Cuff Blood Pressure Position [Right Arm] Sitting 02 Sat by Pulse Oximetry 95 95 Oxygen Delivery Method Room Air Room Air Orders (Tests/Meds): ED MEDICATIONS Discontinued Medications Generic Name Dose Route Start Last Admin Trade Name Freq PRN Reason Stop Dose Admin Ketorolac Tromethamine 60 mg 05/25/21 14:43 05/25/21 14:46 Ketorolac 60mg/2ml Vial IM 05/25/21 14:44 60 mg ONCE ONE Administration - Radiology Data #1 Image(s): Chest Image Reviewed: Yes I reviewed the patient's radiology image, Yes I have reviewed radiologist's interpretation Preliminary Findings: Normal/NAD, No Fracture Seen PROCEDURE: XR RIBS LT MIN 3V W CXR1V CLINICAL INDICATION: FALL, PAIN TO RIB AREA COMPARISON: CR XR CHEST 2V from 05/18/2019 DX XR CHEST 2V from 06/15/2019 DX XR CHEST 2V from 10/25/[address] CHEST WO CON from 04/15/2020 FINDINGS: Frontal view of the chest shows chronic changes in the right upper lobe. There is minimal left basilar atelectasis. There is no evidence of pneumothorax. Neurostimulator device is present with 2 leads in the midthoracic spine at T7 and T8. There is also some mild scarring in the left upper lobe Multiple views of the left ribs show no displaced fracture IMPRESSION: No acute fracture apparent. Dictated by: Fidencio Rand MD 05/25/2021 15:07 Fidencio Rand MD in [place] 05/25/2021 15:07 [facility] [place] - General Stated complaint: ao10/01 fell injured l side ribs Time Seen by Provider: 05/25/21 15:00 Mode of Arrival: Ambulatory Source of Information: Patient Limitations: No Limitations Description of Symptoms (Recalled from Triage Doc. by RN): PATIENT STATES THAT SHE FELL ON TUESDAY AND LANDED ON LEFT SIDE. C/O PAIN TO LEFT BREAST AND RIB AREA HEENT Symptoms (Recalled from RN notes): No Resp Symptoms (Recalled from RN notes): No Skin Symptoms (Recalled from RN notes): No MS Symptoms (Recalled from RN notes): Yes Functional Status (Recalled from
== END 2021-05-25 15:13 | disposition home or self-care (01) ==
PROVIDERS: Emergency Provider Nurse Practitioner Family; PCP Nurse Practitioner Family
DX: R07.89 Other chest pain (principal); X50.0XXA Overexertion from strenuous movement or load, initial encounter; Y92.89 Other specified places as the place of occurrence of the external cause; I10 Essential (primary) hypertension; E78.5 Hyperlipidemia, unspecified; J44.9 Chronic obstructive pulmonary disease, unspecified; K21.9 Gastro-esophageal reflux disease without esophagitis; E03.9 Hypothyroidism, unspecified; F17.210 Nicotine dependence, cigarettes, uncomplicated; Z79.899 Other long term (current) drug therapy
CPT/HCPCS: G0463; 71101; 96372; 99202

== ENCOUNTER → 2021-05-29 11:54 | Outpatient (CLI) | payer MEDICARE, SELFPAY ==
--- NOTE | 2021-05-29 11:59 | XR_ITS ---
PROCEDURE: XR RIBS LT MIN 3V W CXR1V CLINICAL INDICATION: INJURY OF CHEST WALL, SUBSEQUENT ENCOUNTER COMPARISON: DX XR CHEST 2V from 06/15/2019 DX XR CHEST 2V from 10/25/[address] CHEST WO CON from 04/15/2020 CR XR RIBS LT MIN 3V W CXR1V from 05/25/2021 FINDINGS: Stable chronic scarring seen right upper lobe. There is minimal scarring or atelectasis left upper lateral chest as noted on the recent rib films of 05/25/2021. All the left ribs appear intact with no definite fracture seen. There is no pneumothorax. The neurostimulator electrodes are seen extending up to the level of the T7 vertebral body. IMPRESSION: No definite acute left rib fracture seen, stable scarring in both upper lung galeano Dictated by: Dr. John Stein MD 05/29/2021 14:03 Dr. John Stein MD in [place] 05/29/2021 14:03
--- NOTE | 2021-05-29 12:00 | XR_ITS ---
PROCEDURE: XR LUMBAR SPINE MIN 4V CLINICAL INDICATION: INJURY OF LOW BACK, INITIAL ENCOUNTER COMPARISON: CR XR LUMBAR SPINE MIN 4V from 12/11/2019 FINDINGS: There is straightening of the normal curvature suggesting muscle spasm. All lumbar vertebrae appear intact with no recent or old compression fracture seen. There is prominent disc space narrowing at the L3-4 L4-5 and L5-S1 levels. There are partial vacuum phenomenon at the L3-4 and L5-S1 levels. There is a neurostimulator device projecting over the right lower back just lateral to the L1 vertebral body with electrodes extending upward into the spinal canal above the field of view but likely to the lower thoracic spine level. There is no pars defect. There are mild hypertrophic facet changes at the L4-5 and L5-S1 level. The SI joints are normal. Mild diffuse arthrosclerotic calcification of the abdominal aorta but there is no definite aneurysm seen. IMPRESSION: Findings consistent muscle spasm along with multilevel degenerate disc disease. There has been interval more prominent narrowing of the L3-4 disc space when compared to the previous study, the narrowing at L4-5 and L5-S1 is basically stable Dictated by: Dr. John Stein MD 05/29/2021 13:18 Dr. John Stein MD in [place] 05/29/2021 13:18
== END ==
PROVIDERS: PCP Nurse Practitioner Family; Visit Provider Nurse Practitioner Family
DX: S39.92XA Unspecified injury of lower back, initial encounter (principal)
CPT/HCPCS: 71101; 72110

== ENCOUNTER → 2021-06-16 11:19 | Outpatient (CLI) | payer MEDICARE, SELFPAY ==
--- NOTE | 2021-06-16 11:21 | CA_ITS ---
APPROVED REPORT Civil Engineer In Training: Linda Jasso RVT Laterality: Bilateral Study Quality: Good Indications: Carotid stenosis Risk Factors Hypertension: Hyperlipidemia Smoking Doppler Spectral Velocity Analysis ECA (R) 129.40/9.60 cm/s ECA (L) 176.40/11.80 cm/s dICA (R) 77.00/18.20 cm/s dICA (L) 113.10/24.00 cm/s Yvette (R) 97.30/15.00 cm/s Yvette (L) 121.70/27.40 cm/s pICA (R) 134.70/16.00 cm/s pICA (L) 102.80/21.40 cm/s dCCA (R) 106.90/13.90 cm/s dCCA (L) 120.00/20.60 cm/s pCCA (R) 89.80/11.80 cm/s pCCA (L) 123.40/22.30 cm/s Vert (R) 54.80/6.90 cm/s Vert (L) 46.00/13.90 cm/s ICA/CCA 1.26 ICA/CCA 1.01 Findings Study suggests 20-49% stenosis of the right internal cartoid artery. Study suggests 20-49% stenosis of the left internal cartoid artery. Antegrade flow seen bilateral vertebral arteries. Moderate heterogenous plaque bilateral CCA. Conclusion Study suggests 20-49% stenosis of the right internal cartoid artery. Study suggests 20-49% stenosis of the left internal cartoid artery. Antegrade flow seen bilateral vertebral arteries. Moderate heterogenous plaque bilateral CCA. Electronically signed by : Cheyanne Banks MD 06/16/2021 16:36:59
--- NOTE | 2021-06-16 11:23 | XR_ITS ---
PROCEDURE: XR CHEST 2V CLINICAL HISTORY: dyspnea COMPARISON: DX XR CHEST 2V from 10/25/[address] CHEST WO CON from 04/15/2020 CR XR RIBS LT MIN 3V W CXR1V from 05/25/2021 CR XR RIBS LT MIN 3V W CXR1V from 05/29/2021 FINDINGS: The cardiomediastinal silhouette and pulmonary vascularity are within normal limits. This is a somewhat poor inspiration when compared to the most recent chest film 05/29/2021. There is minimal bilateral basilar atelectasis. There is no definite acute pneumonic infiltrate seen. There is stable postinflammatory scarring in both lung apices. The neurostimulator electrodes are again seen projecting over the midthoracic spine. IMPRESSION: Minimal bilateral basilar atelectasis Dictated by: Dr. John Stein MD 06/16/2021 12:09 Dr. John Stein MD in [place] 06/16/2021 12:09
--- NOTE | 2021-06-16 15:16 | MM_ITS ---
PROCEDURE: MM DIG SCREENING MAMM BI W/CAD Digital Breast Tomosynthesis Included CLINICAL INDICATION: SCREENING There is no personal or family history of breast cancer. COMPARISON: MG MM DIG MAMM DX UNILAT LT CAD from 01/31/2020 MG MM DIG SCREENING MAMM BI W/CAD from 07/16/2020 MG MM DIG MAMM DX UNILAT LT CAD from 09/02/2020 TECHNIQUE: Standard CC and MLO images and 3D Tomosynthesis was obtained. R2 CAD reviewed. FINDINGS: The breasts are large and composed primarily of fat. There are minimal scattered fibroglandular densities throughout each breast. There is a stable lobulated nodular lesion lower inner quadrant right breast. There are additional stable tiny benign-appearing nodular densities in each breast. There are 3 tiny benign-appearing microcalcifications left breast. There is a mole marker left breast. There is no new or suspicious lesion in either breast and no suspicious microcalcifications. IMPRESSION: Fatty type breast parenchyma with no suspicious lesions seen BI-RAD Category: 2 Benign Finding(s) FOLLOW-UP: 1YR 1 Year Follow-up (A letter has been sent to the patient regarding results of the study.) Dictated by: Dr. John Stein MD 06/17/2021 11:09 Dr. John Stein MD in [place] 06/17/2021 11:09
== END ==
PROVIDERS: PCP Nurse Practitioner Family; Referring Provider Internal Medicine Pulmonary Disease; Visit Provider Nurse Practitioner Family
DX: I65.29 Occlusion and stenosis of unspecified carotid artery (principal); R42 Dizziness and giddiness; Z12.31 Encounter for screening mammogram for malignant neoplasm of breast
CPT/HCPCS: 71046; 77063; 77067; 93880

== ENCOUNTER → 2021-06-18 09:32 | Outpatient (POV) | payer MEDICARE, SELFPAY ==
[2021-06-18 10:04] VITALS: BP 130/64; PULSE 64; RESP 18; O2SAT 95; BMI 37.2
--- NOTE | 2021-06-18 10:33 | HMH.PAINSOAP ---
[facility] Pain Management SOAP Note Subjective:: Patient is a 60-year-old white female who presents today for follow-up. Patient is treated for chronic low back pain with lumbar radicular symptoms as well as postlaminectomy syndrome lumbar spine. Patient did undergo [employer] spinal cord stimulator implant. Patient reports that the stimulator has given her no relief but has in fact worsen her pain since implant. She reports to have had multiple reprograms and says her pain is worsening. She is unable to stand, wash dishes, or do any activity in her home without pain. She rates her pain an 8 out of 10 today. She says the pain is in the low back, bilateral hips and legs. She also says that the pain is in her neck and mid back. She says the stimulator did work for her the first month or 2 that it was implanted but progressively worsened pain following. She says that she does not want to keep the device. She does have a son that has an intrathecal pain pump and feels this would be more appropriate for her pain. The patient says that she is not on any oral opiates. She does take Lyrica for her neuropathic pain in her bilateral lower extremities. She also takes ibuprofen as needed. Patient is not diabetic and is not on any anticoagulation therapy. Patient is asked to proceed with an intrathecal pain pump trial. Patient's [employer] stimulator was implanted on 11/05/2020. She has tried and failed conservative therapies before her spinal cord stimulator of injective therapy, oral medications, and physical therapy for more than 6 weeks. She does continue with home stretching. She is also tried ice and heat therapies. Review of Systems General: No recent weight changes, no fever, no sleep disturbances Respiratory: No cough, no shortness of air, no recurring pulmonary infections Cardiovascular/peripheral vascular: No chest pain, no palpitations, no edema, no shortness of breath Gastrointestinal: No new onset incontinence, normal bowel movements reported Genitourinary: No new onset incontinence Musculoskeletal: Neck pain, low back pain with radiation into bilateral lower extremities worse with standing Psychiatric: [Normal mood/affect] Neurological: [Denies weakness in extremities], [denies balance issues] Objective:: Physical exam General: Alert and oriented x3, no acute distress, pleasant and cooperative Lungs: Respirations even and unlabored, symmetrical chest expansion Eyes: PERRL Musculoskeletal: Flexion and extension of cervical and lumbar [spine] somewhat guarded secondary to pain, [antalgic gait noted] Neurological: Speech clear, no gross sensory deficit Assessment:: Degenerative disc disease lumbar spine with lumbar radiculopathy symptoms and postlaminectomy syndrome lumbar spine Plan:: Patient is not considered a neurosurgical candidate at this time. She has tried and failed conservative therapies of spinal cord stimulator implant, injective therapy, and physical therapy for more than 6 weeks. She continues with ibuprofen and has tried diclofenac in the past. She is also tried ice and heat therapies as well as continued home stretching. Patient has not gotten any relief with conservative therapies or SCS therapy. She would like to proceed with a intrathecal pain pump trial. The patient is not on any anticoagulation therapy and is not diabetic. We will check her psychological evaluation to determine if she was considered an appropriate candidate at that time for intrathecal therapy. If the patient was only evaluated for SCS therapy, we will need to send the patient for a repeat psychological evaluation. Otherwise, we will schedule the patient for an intrathecal pain pump trial and see her back afterwards for reevaluation of symptoms. Patient does wish for the stimulator to be removed at the time of implant if she has a successful trial. Risks and benefits of the procedure have been explained to the pat
== END ==
PROVIDERS: Visit Provider Clinical Nurse Specialist Family Health
DX: M51.16 Intervertebral disc disorders with radiculopathy, lumbar region (principal); M96.1 Postlaminectomy syndrome, not elsewhere classified
CPT/HCPCS: 99212; G0463

== ENCOUNTER → 2021-07-21 14:41 | Outpatient (CLI) | payer MEDICARE, SELFPAY ==
--- NOTE | 2021-07-21 14:45 | XR_ITS ---
PROCEDURE: XR CHEST 2V CLINICAL HISTORY: sob COMPARISON: CR XR CHEST 2V from 06/16/2021 FINDINGS: The cardiomediastinal silhouette and pulmonary vascularity are within normal limits. COPD changes with scarring in the right upper lobe and right perihilar region. Neurostimulator device noted over the midthoracic region No acute bony abnormalities. IMPRESSION: Chronic changes with COPD and areas of scarring. No change with no acute finding Dictated by: Fidencio Rand MD 07/21/2021 19:05 Fidencio Rand MD in [place] 07/21/2021 19:05
== END ==
PROVIDERS: PCP Nurse Practitioner Family; Visit Provider Internal Medicine Pulmonary Disease
DX: R06.02 Shortness of breath (principal)
CPT/HCPCS: 71046

== ENCOUNTER → 2021-07-24 07:15 | Day surgery (SDC) | payer MEDICARE, SELFPAY ==
[2021-07-24] VITALS (9 sets, daily range): BP systolic 97–131; BP diastolic 45–92; PULSE 67–85; RESP 18–20; TEMP 36.3; O2SAT 91–95; BMI 36.8
--- NOTE | 2021-07-24 09:59 | HMH.PMPROC ---
- Procedure Date: 07/24/21 Time: 09:59 Anesthesiologist:: Ajit Shields MD Complications:: None Pre-procedure Diagnosis:: Postlaminectomy syndrome lumbar spine with lumbar radiculopathy symptoms Post-procedure Diagnosis:: Same Indications for Procedure:: Patient is a pleasant 61-year-old white female who we are treating for low back pain with lumbar radiculopathy symptoms with postlaminectomy syndrome lumbar spine. She does have a [employer] spinal cord stimulator which initially worked well however now it is not controlling her pain symptoms. She has failed all other conservative therapy including physical therapy, injections and oral medications. She has had a successful psychological evaluation. She presents for intrathecal pump trial today. If successful we will plan on placing an intrathecal pain pump and explanting her spinal cord stimulator. Procedure Details:: Pain pump trial Informed consent was obtained and the risk and benefits of the procedure was explained to the patient. The patient was taken to the procedure room and placed prone on the procedure table. Patient was prepped and draped in sterile fashion. C-arm fluoroscopy was used to view the lumbar spine. The skin and subcutaneous tissues were anesthetized using lidocaine. I placed a 18-gauge spinal needle into the L4-5 interspace and advanced until clear CSF was obtained. After this intrathecal catheter was inserted and advanced very easily to the L1 vertebral body. The needle was withdrawn. We were able to freely withdraw clear CSF through the catheter. We then injected intrathecal fentanyl single shot bolus of 25 mcg followed by saline and followed by the previous CSF that was withdrawn. The needle and catheter were then removed and a Band-Aid was placed. Patient tolerated the procedure well with no complications. We reevaluated the patient after 30 minutes to 1 hour. She was also reassessed by physical therapy. Patient did very well with her intrathecal pump trial. She did have some slight itching which was better with Benadryl. She was 80 to 90% better. She is also much more functional she was able to walk better and stand longer. This was a successful intrathecal pump trial. We will plan on permanent placement with intrathecal morphine 5 mg/mL to start at 0.25 mg/day. We will also plan on explanting her spinal cord stimulator at that time. Catheter tip will be at the T12 vertebral body. Plan and Disposition:: We will plan on permanent placement of intrathecal pump. This will be with intrathecal morphine 5 mg per mall to start at 0.25 mg/day. We will plan on explanting her stimulator at that same time. Catheter tip will be at the T12 vertebral body. We will have her consult with Dr. Wang for explant of her stimulator and placement of the pain pump generator.
--- NOTE | 2021-07-24 11:08 | PC.NURSE ---
0855-pt ambulated back to bay, accompanied by nursing staff, gait steady. denies pain. VSS, dressing to low back C/D/I. 0859-pt medicated with benadryl per PRN order for c/o itching. tolerating PO intake without complaints 0906-MD at bedside. 0910-Pt resting in chair. VSS, no c/o pain. dressing C/D/I. continues to have itching. without any needs/concerns at this time 0925 Pt resting in chair. VSS, no c/o pain. dressing C/D/I. without any needs/concerns at this time 0940-Pt resting in chair. VSS, no c/o pain. dressing C/D/I. continues to have itching. without any needs/concerns at this time 0955-pt standing in bay, VSS. no c/o pain. without needs or concerns at this time 1002-pt ambulated to nurses station with SBA only. gait steady. no c/o pain. 1005-pt discharged. per MD order
== END ==
PROVIDERS: PCP Nurse Practitioner Family; Visit Provider Anesthesiology
DX: M96.1 Postlaminectomy syndrome, not elsewhere classified (principal); M54.16 Radiculopathy, lumbar region; E03.9 Hypothyroidism, unspecified; E78.5 Hyperlipidemia, unspecified; I10 Essential (primary) hypertension; J44.9 Chronic obstructive pulmonary disease, unspecified; K21.9 Gastro-esophageal reflux disease without esophagitis; F41.9 Anxiety disorder, unspecified; Z72.0 Tobacco use; M19.90 Unspecified osteoarthritis, unspecified site; Z88.1 Allergy status to other antibiotic agents; Z88.8 Allergy status to other drugs, medicaments and biological substances
CPT/HCPCS: 62323; 96365

== ENCOUNTER → 2021-08-07 10:10 | Outpatient (CLI) | payer MEDICARE, SELFPAY ==
[2021-08-07 11:38] LABS: Anion Gap 9.7 mEq/L (5-15); Blood Urea Nitrogen 6 mg/dl (7-17); Calcium 9.6 mg/dl (8.4-10.2); Carbon Dioxide 33 mmol/L (22.0-30.0); Chloride 97 mmol/L (98-107); Estimated Glomerular Filt Rate 85 ml/min (>60); GFR (African American) 103 ML/MIN (>60); Glucose 95 mg/dl (74-100); Potassium 4.7 mmoL/L (3.5-5.1); Sodium 135 mmol/L (136-145)
[2021-08-07 11:44] LABS: NT Pro Brain Natriuretic Pep. 89.2 pg/mL (0-125)
== END ==
PROVIDERS: Visit Provider Internal Medicine Cardiovascular Disease
DX: E03.9 Hypothyroidism, unspecified (principal); E66.9 Obesity, unspecified; E78.5 Hyperlipidemia, unspecified; I50.33 Acute on chronic diastolic (congestive) heart failure; K21.9 Gastro-esophageal reflux disease without esophagitis; R07.89 Other chest pain; I11.0 Hypertensive heart disease with heart failure; Z68.37 Body mass index [BMI] 37.0-37.9, adult
CPT/HCPCS: 36415; 80048; 83880

== ENCOUNTER → 2021-08-17 06:17 | Outpatient (CLI) | payer MEDICARE, SELFPAY ==
--- NOTE | 2021-08-17 06:19 | CA_ITS ---
APPROVED REPORT Exam: Pharmacologic Technologist: Tamar Adler, Ht: 5 ft 11 in Wt: 270 lbs BSA: 2.40 m2 HR: 67 bpm BP: 105/56 mmHg Medical History Medications: Alprazolam,,,,, Levothyroxine,,,,, Lidocaine,,,,, Aspirin,,,,, Cephalexin,,,,, Losartan,,,,, Atorvastatin,,,,, Pramipexole,,,,, Famotidine,,,,, Cyclobenzaprine,,,,, SpirOnolactone,,,,, Pregabalin,,,,, Stress Test Details Test: LEXISCAN HR Resting HR: 59 bpm Max Heart Rate (APMHR): 160.514927 bpm Max HR Achieved: 96 bpm Target HR (85% APMHR): 136.188794 bpm % of APMHR: 60.00 Recovery HR: 76 bpm BP Resting BP: 105/56 mmHg Max BP: 120/51 mmHg Recovery BP: 110.0/62.0 mmHg ECG Clinical Exercise duration: 04:06 min Highest Stage Achieved: Exercise capacity: 1.0 METs Stress ECG Conclusion Symptoms: SOA and nausea with nilam infusion. No chest pain. Arrhythmias/Ectopy: PVCs noted. ST-T Changes: <1.5mm ST segment changes. Electronically signed by : Dallas Gaxiola MD 08/17/2021 11:02:16
--- NOTE | 2021-08-17 06:28 | NM_ITS ---
APPROVED REPORT Exam: Nuclear Stress Test Indication: Chest pain, HTN, High cholesterol, Tobacco use, Family history Patient Location: Outpatient Stress Tech: Tamar Adler [place] Tech:Jayla Crum, ARRT, RT (R)(N) Ht: 5 ft 11 in Wt: 217 lbs Bra Size: 50DD HR: 59 bpm BP: 105/56 mmHg BSA: 2.18 m2 BMI: 30.2 History: Chest pain, HTN, High cholesterol, Tobacco use, Family history Procedure: Patient received a 0.4 mg of intravenous Lexiscan, resting heart rate 59 bpm, resting blood pressure 105/56 mmHg, with Lexiscan maximum heart rate achived was 96 bpm which is Less than 85 % of the maximum predicted heart rate and blood pressure was 120/51 mmHg. With Lexiscan, patient denied any complaint of chest pain. Electrocardiogram Resting electrocardiogram showed sinus rhythm, with Lexiscan there is less than 1.[address] segment depression noted from the baseline EKG. The EKG portion of the Lexiscan is nondiagnostic. Cardiac Stress and Resting SPECT Images: Cardiac Stress and Resting SPECT images were obtained using technetium 99m Myoview 29.9 mCi stress and 10.18 mCi at rest. Patient unable to lay on stomach for prone images. Gated SPECT for analysis of segmental wall motion and calculation of the ejection fraction also done. Cardiac stress and resting SPECT images show decreased tracer activity in the inferolateral wall which improves on the resting images suggestive of reversible ischemia, there is transient ischemic dilatation of the left ventricle seen, raising the concerns for presence of multivessel coronary artery disease. Computer derived ejection fraction is 54% with no regional wall motion abnormality, right ventricle is mildly enlarged with normal contractility. Conclusion: 1. The EKG portion of the Lexiscan is nondiagnostic. 2. Scintigraphic evidence of reversible ischemia involving the inferolateral wall in association with transient ischemic dilatation of the left ventricle raising the concerns of presence of multivessel coronary artery disease. Compared right ejection fraction is 54% with no regional wall motion abnormality, right ventricle is mildly enlarged with normal contractility. 3. Abnormal Lexiscan Myoview study. Electronically signed by : Dallas Gaxiola MD 08/17/2021 19:32:46
--- NOTE | 2021-08-17 09:03 | HMH.ITSHM ---
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 []SPIRONOLACTONE PREGABALIN PRAMIPEXOLE POTASSIUM LOSARTAN LEVOTHYROXINE ATORVASTATIN IPRATROPIUM FLUTICASONE FAMOTIDINE ESCITALOPRAM DILTIAZEM CEPHALEXIN ASA ALPRAZOLAM ALBUTEROL INCRUSE OMEPRAZOLE LASIX FLEXERIL AZELASTINE
== END ==
PROVIDERS: PCP Nurse Practitioner Family; Visit Provider Internal Medicine Cardiovascular Disease
DX: E03.9 Hypothyroidism, unspecified (principal); E66.9 Obesity, unspecified; E78.5 Hyperlipidemia, unspecified; I10 Essential (primary) hypertension; K21.9 Gastro-esophageal reflux disease without esophagitis; R07.89 Other chest pain; Z68.37 Body mass index [BMI] 37.0-37.9, adult
CPT/HCPCS: 78452; 93017; A9502; J2785

== ENCOUNTER → 2021-08-19 09:24 | Outpatient (CLI) | payer MEDICARE, SELFPAY ==
[2021-08-19 09:28] LABS: Coronavirus 19, PCR Not Detected (NotDetected); Influenza A, PCR Not Detected (NotDetected); Influenza B, PCR Not Detected (NotDetected)
[2021-08-19 09:57] LABS: Basophils # 0.1 K/mm3 (0-0.2); Basophils % 0.8 % (0.1-2.0); Eosinophils # 0.3 K/mm3 (0.0-0.4); Eosinophils % 1.7 % (0.1-12.0); Hematocrit 44.3 % (37.0-47.0); Hemoglobin 13.8 g/dL (12.2-16.2); Lymphocytes # 2.1 K/mm3 (0.7-4.5); Lymphocytes % 12.5 % (10-50); Mean Corpuscular HGB Conc 31.2 g/dL (31.8-35.4); Mean Corpuscular Hemoglobin 26.5 pg (27.0-31.2); Mean Corpuscular Volume 85.2 fl (81-99); Mean Platelet Volume 9.3 fl (7.4-10.4); Monocytes # 1.3 K/mm3 (0.1-1.0); Monocytes % 7.8 % (1.7-9.3); Neutrophils # 12.9 K/mm3 (1.8-7.8); Neutrophils % 77.2 % (37.0-80.0); Platelet Count 281 K/mm3 (142-424); Red Cell Distribution Width 16.9 % (11.5-17.5); White Blood Count 16.7 K/mm3 (4.8-10.8)
[2021-08-19 10:06] LABS: MANUAL DIFFERENTIAL MANUAL DIFFERENTIAL (MANUAL DIFF)
[2021-08-19 10:33] LABS: Anisocytosis 1+; Eosinophils % 2 % (0-3); Hypochromasia 1+; Lymphocytes % 15 % (10-50); Monocytes % 4 % (2-9); Neutrophils % 79 % (42-76); Platelet Estimate Normal; Total Cells Counted 100
== END ==
PROVIDERS: Visit Provider Urology
DX: E66.9 Obesity, unspecified (principal); E78.5 Hyperlipidemia, unspecified; I10 Essential (primary) hypertension; I20.8 Other forms of angina pectoris; I63.9 Cerebral infarction, unspecified; J44.9 Chronic obstructive pulmonary disease, unspecified; K21.9 Gastro-esophageal reflux disease without esophagitis; R94.39 Abnormal result of other cardiovascular function study; Z01.812 Encounter for preprocedural laboratory examination; Z11.52 Encounter for screening for COVID-19; Z68.37 Body mass index [BMI] 37.0-37.9, adult
CPT/HCPCS: 36415; 85007; 85025; C9803; U0003; U0005

== ENCOUNTER 2021-08-20 08:14 | Day surgery (SDC) | payer MEDICARE, SELFPAY ==
[2021-08-20] VITALS (12 sets, daily range): BP systolic 103–162; BP diastolic 46–82; PULSE 68–85; RESP 18–20; TEMP 37.1; O2SAT 90–99; BMI 37.6
--- NOTE | 2021-08-20 07:02 | IR_ITS ---
APPROVED REPORT Patient Location: [facility] Supervisor: GAMALIEL Johnson RT (R) PROCEDURES Left heart catheterization Left ventriculogram Selective coronary angiogram INDICATION High risk abnormal Myoview Informed consent was obtained prior to the procedure. COMPLICATIONS NONE Estimated Blood Loss: LESS THAN 10 ML TECHNIQUE One percent lidocaine used to anesthetize the right anterior aspect of the wrist. The right radial artery was accessed via the Seldinger technique. A 6 Thai sheath was placed in the right radial artery. 2.5 mg of verapamil, 800 mcg of nitroglycerin, 1mg Lidocaine and 5000 U Heparin were given through the arterial sheath. The Dapperpa catheter was also used to perform left heart catheterization, left ventriculogram and selective coronary angiogram. At the end of the procedure the sheath was removed good hemostasis was achieved using Traclet band, patient was transferred to the postop holding area in stable condition. ANGIOGRAPHIC RESULTS The left main artery Normal The left anterior descending artery Normal The circumflex artery Gives rise to a high ramus intermedius moderate in size which is normal. The circumflex artery itself is also nondominant and normal The right coronary artery Large dominant with proximal 10% luminal irregularities The CRUZ ventriculogram reveals Hyperdynamic 75% The left ventricular end-diastolic pressure 30 mmHg IMPRESSION Mild nonflow limiting coronary disease Hyperdynamic ventricle combined with elevated LVEDP all consistent with moderate to severe diastolic dysfunction which likely accounts for patient's symptoms PLAN 1. Risk factor modification 2. Treatment of diastolic dysfunction which is the etiology for patient's symptoms Electronically signed by : Rene Jack MD 08/20/2021 11:58:40
== END 2021-08-20 14:14 | disposition home or self-care (01) ==
LOC: CATHLAB 08:15
PROVIDERS: PCP Nurse Practitioner Family; Visit Provider Internal Medicine
DX: E66.9 Obesity, unspecified (principal); E78.5 Hyperlipidemia, unspecified; F17.210 Nicotine dependence, cigarettes, uncomplicated; I11.0 Hypertensive heart disease with heart failure; I25.118 Atherosclerotic heart disease of native coronary artery with other forms of angina pectoris; J44.9 Chronic obstructive pulmonary disease, unspecified; K21.9 Gastro-esophageal reflux disease without esophagitis; R94.39 Abnormal result of other cardiovascular function study; I50.33 Acute on chronic diastolic (congestive) heart failure
CPT/HCPCS: 93458; 99152; C1725; C1760; C1769; J1644; Q9967

== ENCOUNTER → 2021-09-07 11:34 | Outpatient (CLI) | payer MEDICARE, SELFPAY ==
[2021-09-07 12:11] LABS: Basophils # 0.1 K/mm3 (0-0.2); Eosinophils # 0.2 K/mm3 (0.0-0.4); Eosinophils % 2.4 % (0.1-12.0); Hematocrit 45.2 % (37.0-47.0); Hemoglobin 14.3 g/dL (12.2-16.2); Lymphocytes # 1.8 K/mm3 (0.7-4.5); Lymphocytes % 18.3 % (10-50); Mean Corpuscular HGB Conc 31.6 g/dL (31.8-35.4); Mean Corpuscular Hemoglobin 27.1 pg (27.0-31.2); Mean Corpuscular Volume 85.7 fl (81-99); Mean Platelet Volume 9.5 fl (7.4-10.4); Monocytes # 0.8 K/mm3 (0.1-1.0); Monocytes % 8.5 % (1.7-9.3); Neutrophils # 6.7 K/mm3 (1.8-7.8); Neutrophils % 69.8 % (37.0-80.0); Platelet Count 218 K/mm3 (142-424); Red Blood Count 5.27 M/mm3 (4.20-5.40); Red Cell Distribution Width 16.7 % (11.5-17.5); White Blood Count 9.6 K/mm3 (4.8-10.8)
[2021-09-07 12:18] LABS: Chloride 100 mmol/L (98-107); Potassium 4.3 mmoL/L (3.5-5.1); Sodium 138 mmol/L (136-145)
[2021-09-07 12:21] LABS: Blood Urea Nitrogen 7 mg/dl (7-17); Calcium 9.4 mg/dl (8.4-10.2); Carbon Dioxide 32 mmol/L (22.0-30.0); Estimated Glomerular Filt Rate 102 ml/min (>60); GFR (African American) 123 ML/MIN (>60); Glucose 84 mg/dl (74-100)
[2021-09-07 12:22] LABS: Anion Gap 10.3 mEq/L (5-15)
[2021-09-07 13:39] LABS: Amphetamine/Metha Screen,Urine Negative ng/ml (<1000); Barbiturates Screen,Urine Negative ng/ml (<200)
[2021-09-07 13:40] LABS: Benzodiazepines Screen,Urine Negative ng/ml (<200); Cannabinoid Screen,Urine Negative ng/ml (<50)
[2021-09-07 13:41] LABS: Cocaine Screen,Urine Negative ng/ml (<300)
[2021-09-07 13:42] LABS: Methadone Screen,Urine Negative ng/ml (<300); Opiate Screen,Urine Negative ng/ml (<300)
[2021-09-07 13:43] LABS: Phencyclidine Screen,Urine Negative ng/ml (<25)
== END ==
PROVIDERS: PCP Nurse Practitioner Family; Visit Provider Anesthesiology
DX: Z01.812 Encounter for preprocedural laboratory examination (principal); Z11.52 Encounter for screening for COVID-19; Z79.899 Other long term (current) drug therapy
CPT/HCPCS: 36415; 80048; 80305; 85025; C9803; U0003; U0005

== ENCOUNTER → 2021-10-02 09:27 | Outpatient (CLI) | payer MEDICARE, SELFPAY ==
[2021-10-02 11:25] LABS: Anion Gap 11.2 mEq/L (5-15); Blood Urea Nitrogen 9 mg/dl (7-17); Calcium 9.5 mg/dl (8.4-10.2); Carbon Dioxide 32 mmol/L (22.0-30.0); Chloride 100 mmol/L (98-107); Estimated Glomerular Filt Rate 85 ml/min (>60); GFR (African American) 103 ML/MIN (>60); Glucose 83 mg/dl (74-100); Potassium 5.2 mmoL/L (3.5-5.1); Sodium 138 mmol/L (136-145)
[2021-10-02 11:31] LABS: NT Pro Brain Natriuretic Pep. 121 pg/mL (0-125)
== END ==
PROVIDERS: PCP Nurse Practitioner Family; Visit Provider Internal Medicine Cardiovascular Disease
DX: F17.200 Nicotine dependence, unspecified, uncomplicated (principal); I25.10 Atherosclerotic heart disease of native coronary artery without angina pectoris; R06.00 Dyspnea, unspecified; R07.89 Other chest pain; R53.83 Other fatigue
CPT/HCPCS: 36415; 80048; 83880

== ENCOUNTER → 2021-10-05 12:30 | Outpatient (CLI) | payer MEDICARE, SELFPAY ==
[2021-10-05 13:04] LABS: Basophils # 0.2 K/mm3 (0-0.2); Basophils % 1.3 % (0.1-2.0); Eosinophils # 0.2 K/mm3 (0.0-0.4); Eosinophils % 1.7 % (0.1-12.0); Hematocrit 43.9 % (37.0-47.0); Hemoglobin 13.7 g/dL (12.2-16.2); Lymphocytes % 16.8 % (10-50); Mean Corpuscular HGB Conc 31.2 g/dL (31.8-35.4); Mean Corpuscular Hemoglobin 27.4 pg (27.0-31.2); Mean Corpuscular Volume 87.6 fl (81-99); Mean Platelet Volume 9.2 fl (7.4-10.4); Monocytes # 0.7 K/mm3 (0.1-1.0); Neutrophils # 8.7 K/mm3 (1.8-7.8); Neutrophils % 74.2 % (37.0-80.0); Platelet Count 230 K/mm3 (142-424); Red Blood Count 5.01 M/mm3 (4.20-5.40); Red Cell Distribution Width 16.2 % (11.5-17.5); White Blood Count 11.7 K/mm3 (4.8-10.8)
[2021-10-05 13:41] LABS: Chloride 101 mmol/L (98-107); Potassium 3.6 mmoL/L (3.5-5.1); Sodium 134 mmol/L (136-145)
[2021-10-05 13:44] LABS: Anion Gap 5.6 mEq/L (5-15); Blood Urea Nitrogen 7 mg/dl (7-17); Calcium 8.3 mg/dl (8.4-10.2); Carbon Dioxide 31 mmol/L (22.0-30.0); Estimated Glomerular Filt Rate 102 ml/min (>60); GFR (African American) 123 ML/MIN (>60); Glucose 67 mg/dl (74-100)
[2021-10-05 15:48] LABS: Amphetamine/Metha Screen,Urine Negative ng/ml (<1000)
[2021-10-05 15:49] LABS: Barbiturates Screen,Urine Negative ng/ml (<200); Benzodiazepines Screen,Urine Negative ng/ml (<200)
[2021-10-05 15:50] LABS: Cannabinoid Screen,Urine Negative ng/ml (<50)
[2021-10-05 15:51] LABS: Cocaine Screen,Urine Negative ng/ml (<300); Methadone Screen,Urine Negative ng/ml (<300)
[2021-10-05 15:52] LABS: Opiate Screen,Urine Negative ng/ml (<300); Phencyclidine Screen,Urine Negative ng/ml (<25)
== END ==
PROVIDERS: PCP Nurse Practitioner Family; Visit Provider Anesthesiology
DX: Z01.812 Encounter for preprocedural laboratory examination (principal); Z11.52 Encounter for screening for COVID-19; M54.10 Radiculopathy, site unspecified
CPT/HCPCS: 36415; 80048; 80305; 85025; C9803; U0003; U0005

== ENCOUNTER 2021-10-07 09:49 | Day surgery (SDC) | payer MEDICARE, SELFPAY ==
[2021-09-03 10:15] VITALS: BMI 38.2
[2021-10-05 11:12] VITALS: BMI 38.2
[2021-10-07 10:16] VITALS: BP 150/70; PULSE 84; RESP 20; TEMP 36.8; O2SAT 92
--- NOTE | 2021-10-07 10:39 | HMH.ANESCL ---
[facility] Anesthesia Checklist - Patient Identification Patient Identification: Arm Band - Structural Data Admitted From: Home Planned Operative Procedure/s: Neurostimulator Explant, Pain Pump Implant Consent for Planned Operative Procedure(s) Verified: Yes Verified Documents: Surgical Consent, History and Physical - NPO Status Verified Time NPO: 00:00 - Additional verifications Anesthesia Reactions: No Hx Blood Transfusions: No Blood Transfusion Reaction: No - Airway Assessment C-Spine Mobility Assessed: Yes (mp2) TMJ Mobility Assessed: Yes Dentition: Edentulous - Neurological Assessment Level of Consciousness: Awake, Alert - Anesthesia Plan Anesthesia Risk discussed: Yes Anesthesia Plan: Verified ASA Class: III Anesthesia Type: MAC [facility] History I have reviewed the patient's past medical history: Yes Medical History: Reports:: Anxiety, Chronic Obstructive Pulmonary Disease (COPD), Gastroesophageal Reflux Disease(GERD), Home Oxygen, Hyperlipidemia, Hypertension Denies:: Cancer, Diabetes Mellitus Type 1, Diabetes Mellitus Type 2, Internal Pacemaker, MRSA, Seizures *Have you ever received a pneumonia vaccine?: No *Have you received a flu vaccine this season?: Yes Other Medical History: Reports: Arthritis, Hypothyroidism, Sinus Problems, Thyroid Disease, Other. Denies: Blood Transfusion Reaction Anesthesia experience/problems:: nac Laterality Cases: Left: Arthroscopy Knee Other Surgeries: Yes: Cardiac Catheterization, Colonoscopy, , EGD, Hernia Repair, Hysterectomy-Total, Sinus Surgery, Tubal Ligation, Other. No: Pacemaker Amputation: No Fractures: No - *Social History Last grade of school completed: 7th or 8th Smoking Status: Current every day smoker Tobacco Type: cigarettes # Packs/Day (cigarettes): 2 Alcohol Intake: never Substance Use Type: denies use *Occupational Status:: disabled Housing: house Household Members: spouse *Travel in the last 8 weeks: None - Psychiatric History Pschychiatric History:: Reports:: Anxiety Family Hx:: Cancer, Coronary Artery Disease, Hypertension
[2021-10-07 14:17] VITALS: BP 156/92; PULSE 84; RESP 20; TEMP 37.3; O2SAT 93
[2021-10-07 14:32] VITALS: BP 147/82; PULSE 83; RESP 18; TEMP 37.3; O2SAT 92
[2021-10-07 14:47] VITALS: BP 155/79; PULSE 73; RESP 18; TEMP 37.3; O2SAT 93
[2021-10-07 15:02] VITALS: BP 127/90; PULSE 70; RESP 18; TEMP 37.3; O2SAT 95
[2021-10-07 15:26] VITALS: BP 123/68; PULSE 70; RESP 18; TEMP 37.3; O2SAT 94
--- NOTE | 2021-10-07 15:55 | P.OP_ITS ---
Date of procedure: 10/07/21 Pre-op Diagnosis:: Postlaminectomy syndrome lumbar spine with lumbar radiculopathy symptoms Post-op Diagnosis:: Same Procedure performed:: Removal of spinal cord stimulator generator and leads and placement of intrathecal pain pump system catheter and reservoir/battery Surgeon:: Ajit Shields MD SUPERVISOR ASSEMBLY ROOM:: Other Anesthesia: MAC Estimated blood loss (mL): 5 Clinical Note:: This patient is a pleasant 61-year-old white female who we are treating for low back pain with lumbar radiculopathy symptoms and postlaminectomy syndrome lumbar spine. She has a [employer] spinal cord stimulator system in place. Initially this did help however is not controlling her pain symptoms. She has failed all other conservative therapy including injections, oral medications, physical therapy and she is not a candidate for any further surgery. She has previously also had surgery which helped initially but now she has significant back pain and hip pain. She has undergone a successful psychological evaluation and a successful intrathecal pump trial. She presents for placement of her intrathecal pain pump with morphine 5 mg/mL to start at 0.25 mg/day. And she is also having removal of her stimulator today. Operative findings:: None Operative note:: Informed consent was obtained the risk and benefits of the procedure were explained to the patient. The patient was taken to the operating room placed prone on the procedure table. She was prepped and draped in sterile fashion. I anesthetized the skin and subcutaneous tissues overlying the stimulator generator and lead anchors. I made an incision and explanted the stimulator generator and made an incision over the lead anchors and explained to the lead anchors and leads. Both incisions were washed out with antibiotic solution. A 15-gauge spinal needle was then inserted and advanced into the L4-L5 interspace until clear CSF was obtained. After this intrathecal catheter was inserted and advanced very easily to the T12 vertebral body. The stylette and needle were removed. The catheter was secured to the fascia with 2 anchoring devices and 2- 0 Prolene. I then prepared the pump with 20 mls of intrathecal morphine 5 mg/mL. I tunneled the catheter from the back to the pocket where the previous generator was we have enlarged this pocket for the pain pump reservoir. We attached catheter to the pump. We were able to freely withdraw clear CSF through the catheter access port. The pump was placed in the pocket. Both incisions were then closed with 2-0 Vicryl followed by 4-0 nylon and ant. A wound VAC was placed over both incisions. The patient was then taken recovery in stable condition. Patient tolerated the procedure well with no complications. Pump was interrogated and started at 0.25 mg/day of intrathecal morphine. Patient was discharged home neurologically intact with good relief of pain symptoms. She was also placed on Bactrim DS twice a day for 5 days. Plan and disposition: We will follow-up with this patient 1 week for wound check and adjustment of her intrathecal infusion. We will follow-up in 2 weeks for removal of ant and suture. If she has any problems or questions she is to call us back in the pain clinic. Condition: stable Disposition: PACU Complications:: None
== END 2021-10-07 15:26 | disposition home or self-care (01) ==
LOC: OR 09:50
PROVIDERS: PCP Nurse Practitioner Family; Visit Provider Anesthesiology
DX: M96.1 Postlaminectomy syndrome, not elsewhere classified (principal); M54.16 Radiculopathy, lumbar region; F41.9 Anxiety disorder, unspecified; J44.9 Chronic obstructive pulmonary disease, unspecified; K21.9 Gastro-esophageal reflux disease without esophagitis; Z99.81 Dependence on supplemental oxygen; E78.5 Hyperlipidemia, unspecified; I10 Essential (primary) hypertension; M19.90 Unspecified osteoarthritis, unspecified site; E03.9 Hypothyroidism, unspecified; Z72.0 Tobacco use; Z80.9 Family history of malignant neoplasm, unspecified; Z82.49 Family history of ischemic heart disease and other diseases of the circulatory system
CPT/HCPCS: 62350; 62362; 63661; 63688; 76000; 96374; C1755; C1772; J3370

== ENCOUNTER → 2021-10-15 10:57 | Outpatient (POV) | payer MEDICARE, SELFPAY ==
[2021-10-15 11:32] VITALS: BP 152/68; PULSE 88; RESP 18; O2SAT 98; BMI 37.9
--- NOTE | 2021-10-15 11:32 | HMH.PAINSOAP ---
[facility] Pain Management SOAP Note Subjective:: Patient is a very pleasant 7-year-old white female who presents today for intrathecal pump adjustment. She is currently being treated for degenerative disc disease of the lumbar spine with lumbar radiculopathy. She recently underwent spinal cord stimulator generator and leads removal and placement of intrathecal pain pump system with catheter and reservoir/battery on October 07, [address] DALTON. She rates her pain today as an 8 out of 10. She also notes that she is sick to her stomach and has not had a bowel movement in 4 days and states that she is having trouble urinating. She is currently on her intrathecal morphine 5 mg/mL at 0.25 mg/day. She states that the Prevena dressing was not functioning appropriately and she discussed this with a flow [place] rep who recommended removing the Prevena dressing which she did. Objective:: General: Alert and oriented x3, no acute distress, pleasant and cooperative Lungs: Resps E/U, symmetric chest expansion Eyes: PERRL Musculoskeletal: limited flexion and extension of the lumbar spine secondary to pain. Deep tendon reflexes were normal in bilateral lower extremities. Motor exam was grossly intact in the bilateral lower extremities, antalgic gait noted. Skin: Both incision sites appear to be healing appropriately. Very minimal drainage no erythema appreciated. Neurological: Speech is clear, process safety engineer equal, no gross sensory deficits Assessment:: Degenerative disc disease of the lumbar spine with lumbar radiculopathy Plan:: I discussed with the patient that we will decrease the morphine daily dose to 0.2 mg/day as her symptoms are likely opioid related. We will follow-up with her in 1 week for reassessment and possible further reduction in her intrathecal daily dose. I will also prescribe her senna/Dulcolax and MiraLAX. PATIENCE#[id number] was reviewed and appropriate. ORT was performed and the patient was deemed low risk. [facility] History Medical History: Reports:: Anxiety, Chronic Obstructive Pulmonary Disease (COPD), Gastroesophageal Reflux Disease(GERD), Home Oxygen, Hyperlipidemia, Hypertension Denies:: Cancer, Diabetes Mellitus Type 1, Diabetes Mellitus Type 2, Internal Pacemaker, MRSA, Seizures *Have you ever received a pneumonia vaccine?: Yes *Have you received a flu vaccine this season?: Yes Other Medical History: Reports: Arthritis, Hypothyroidism, Sinus Problems, Thyroid Disease, Other. Denies: Blood Transfusion Reaction Laterality Cases: Left: Arthroscopy Knee Other Surgeries: Yes: No Previous Surgery, Cardiac Catheterization, Colonoscopy, , EGD, Hernia Repair, Hysterectomy-Total, Sinus Surgery, Tubal Ligation, Other. No: Pacemaker Amputation: No Fractures: No - *Social History Smoking Status: Current every day smoker Tobacco Type: cigarettes # Packs/Day (cigarettes): 2 Alcohol Intake: never Substance Use Type: denies use *Occupational Status:: disabled Housing: house Household Members: spouse *Travel in the last 8 weeks: None - Psychiatric History Pschychiatric History:: Reports:: Anxiety Family Hx:: Cancer, Coronary Artery Disease, Hypertension
== END ==
PROVIDERS: Visit Provider Anesthesiology Pain Medicine
DX: M51.16 Intervertebral disc disorders with radiculopathy, lumbar region (principal)
CPT/HCPCS: 36415; 80048; 99212; G0463

== ENCOUNTER → 2021-10-15 12:23 | Outpatient (CLI) | payer MEDICARE, SELFPAY ==
[2021-10-15 13:24] LABS: Chloride 93 mmol/L (98-107); Sodium 131 mmol/L (136-145)
[2021-10-15 13:25] LABS: Potassium 3.2 mmoL/L (3.5-5.1)
[2021-10-15 13:27] LABS: Blood Urea Nitrogen 6 mg/dl (7-17); Estimated Glomerular Filt Rate 102 ml/min (>60); GFR (African American) 123 ML/MIN (>60)
[2021-10-15 13:28] LABS: Anion Gap 10.2 mEq/L (5-15); Calcium 8.2 mg/dl (8.4-10.2); Carbon Dioxide 31 mmol/L (22.0-30.0); Glucose 98 mg/dl (74-100)
== END ==
PROVIDERS: Visit Provider Internal Medicine Cardiovascular Disease
DX: E87.5 Hyperkalemia (principal)
CPT/HCPCS: 36415; 80048

== ENCOUNTER 2021-10-21 20:15 | Emergency (ER) | payer MEDICARE, SELFPAY ==
[2021-10-21] VITALS (7 sets, daily range): BP systolic 131–160; BP diastolic 66–71; PULSE 83–92; RESP 20–23; TEMP 36.8; O2SAT 86–97; BMI 38.2
--- NOTE | 2021-10-21 20:33 | XR_ITS ---
PROCEDURE INFORMATION: Exam: XR Chest Exam date and time: 10/21/2021 8:33 PM Age: 61 years old Clinical indication: Shortness of breath; Additional info: SOA, cough TECHNIQUE: Imaging protocol: XR of the chest. Views: 2 views. COMPARISON: CR XR CHEST 2V 07/21/2021 3:05 PM FINDINGS: Lungs: Lateral view again shows mild pulmonary hyperinflation with flattening of diaphragms. There is chronic bilateral lower pulmonary interstitial prominence . There is central and infrahilar peribronchial thickening which appears chronic compared with the prior exam. Chronic hazy density at the left cardiophrenic angle which may be a pericardial fat pad rather than lingular airspace disease, unchanged in the interval. Chronic emphysematous changes and interstitial scarring in the lung apices greater on the right than left. Pleural spaces: Chronic bilateral apical pleural thickening/scarring. No pleural effusion or pneumothorax. Heart/Mediastinum: The cardiac silhouette is normal sized. Chronic hazy density obscuring the left cardiophrenic angle which is probably a pericardial fat pad. Bones/joints: Mild spinal degenerative changes. No acute fracture, as visualized. A spinal stimulator device seen in the midthoracic spine on the prior exam has been removed in the interval. IMPRESSION: 1. Chronic interstitial lung disease, cystic emphysematous changes, pulmonary hyperinflation, and peribronchial thickening suggesting history of COPD and bronchitis. 2. No acute cardiopulmonary findings or focal consolidation, compared with 07/21/2021. 3. Additional nonemergency and chronic findings as above.
[2021-10-21 20:37] LABS: Microscopic, Urine URINE MICROSCOPIC (MICROSCOPIC)
[2021-10-21 20:45] LABS: Coronavirus 19, PCR Not Detected (NotDetected); Influenza A, PCR Not Detected (NotDetected); Influenza B, PCR Not Detected (NotDetected)
[2021-10-21 21:07] LABS: Appearance,Urine CLEAR (Clear); Bilirubin,Urine Negative (Negative); Blood, Urine Negative (Negative); Color,Urine YELLOW (Yellow); Glucose,Urine (UA) Negative (Negative); Ketones,Urine Negative (Negative); Leukocyte Esterase,Urine Negative (Negative); Nitrate,Urine Negative (Negative); Protein,Urine Negative (Negative); Urobilinogen,Urine 0.2 EU/dl (0.2)
--- NOTE | 2021-10-21 21:10 | ECG_ITS ---
APPROVED REPORT Exam: Resting ECG HR:80 bpm ECG Measurements Heart Rate 80 AXES WY 150 P 74 QRSd 97 QRS 30 QT 362 T 68 QTc 398 Conclusion SINUS RHYTHM INCOMPLETE RIGHT BUNDLE BRANCH BLOCK [90+ ms QRS DURATION, TERMINAL R IN V1/V2, 40+ ms S IN I/aVL/V4/V5/V6] BORDERLINE ECG UNCONFIRMED REPORT Electronically signed by : Jack Mathis MD 10/23/2021 16:06:15
[2021-10-21 21:15] LABS: Alanine Aminotransferase 22 U/L (12-78); Albumin Level 3.8 g/dl (3.5-5.0); Albumin/Globulin Ratio 1.1 (1.1-1.8); Alkaline Phosphatase 109 U/L (38-126); Anion Gap 11.1 mEq/L (5-15); Aspartate Amino Transferase 29 U/L (14-36); Bilirubin,Total 0.5 mg/dl (0.2-1.3); Blood Urea Nitrogen 8 mg/dl (7-17); Calcium 8.7 mg/dl (8.4-10.2); Carbon Dioxide 30 mmol/L (22.0-30.0); Chloride 96 mmol/L (98-107); Creatinine Clearance Estimated 117 mL/min (50-200); Estimated Glomerular Filt Rate 57 ml/min (>60); GFR (African American) 68 ML/MIN (>60); Globulin 3.5 g/dL (1.3-3.2); Glucose 99 mg/dl (74-100); Potassium 4.1 mmoL/L (3.5-5.1); Sodium 133 mmol/L (136-145); Total Protein,Serum 7.3 g/dl (6.3-8.2)
[2021-10-21 21:20] LABS: C-Reactive Protein 19.5 mg/L (0-4)
[2021-10-21 21:28] LABS: Basophils # 0.1 K/mm3 (0-0.2); Eosinophils # 0.2 K/mm3 (0.0-0.4); Eosinophils % 1.4 % (0.1-12.0); Hematocrit 44.9 % (37.0-47.0); Hemoglobin 13.7 g/dL (12.2-16.2); Lymphocytes # 1.9 K/mm3 (0.7-4.5); Lymphocytes % 17.5 % (10-50); Mean Corpuscular HGB Conc 30.6 g/dL (31.8-35.4); Mean Corpuscular Hemoglobin 27.3 pg (27.0-31.2); Mean Platelet Volume 8.7 fl (7.4-10.4); Monocytes # 0.6 K/mm3 (0.1-1.0); Monocytes % 5.7 % (1.7-9.3); Neutrophils # 7.9 K/mm3 (1.8-7.8); Neutrophils % 74.4 % (37.0-80.0); Platelet Count 352 K/mm3 (142-424); Red Blood Count 5.04 M/mm3 (4.20-5.40); Red Cell Distribution Width 15.9 % (11.5-17.5); White Blood Count 10.7 K/mm3 (4.8-10.8)
[2021-10-21 21:29] LABS: Bacteria,Urine Trace /lpf; WBC,Urine Occasional #/hpf (0-3)
[2021-10-21 21:30] LABS: NT Pro Brain Natriuretic Pep. 148 pg/mL (0-125); Troponin I < 0.01 ng/ml (0.00-0.034)
[2021-10-21 21:34] LABS: T4 (Thyroxine) 11.7 ug/dl (5.53-11.0)
[2021-10-21 21:48] LABS: Thyroid Stimulating Hormone 2.09 uIU/mL (0.465-4.68)
[2021-10-21 22:02] LABS: Erythrocyte Sedimentation Rate 19 mm/hr (0-30)
--- NOTE | 2021-10-21 23:33 | HMH.EDNVD ---
ED Disposition Clinical Impression: Gastroenteritis Disposition: Home, Self-Care Condition on Discharge: Good Instructions: DI for Diarrhea and Traveler's Diarrhea -- Adult Additional Instructions: fluids and see pcp for follow up Referrals: Telma Naylor APRN [Primary Care Provider] - - Critical Care Critical Care Time: No Attestation: On 10/21/21, the high probability of a clinically significant, sudden or life threatening deterioration of the following system(s) required my full and direct attention, intervention and personal management. The time I documented below is in addition to time spent performing reported procedures but includes the following listed in this critical care notation. Medical Decision Making - Medical Records Medical records reviewed: Yes: I reviewed the patient's medical records. - Je Inquiry Pt receiving controlled substance: No Vital Signs: 10/21/21 20:16 10/21/21 21:31 Temperature 98.3 F Temperature Source Oral Pulse Rate 92 H Pulse Rate [Right] 88 Respiratory Rate 23 Blood Pressure 134/66 Blood Pressure [Right Arm] 160/71 H Blood Pressure Mean [Right Arm] 100 Blood Pressure Source [Right Arm] Automatic Cuff 02 Sat by Pulse Oximetry 86 L 90 L Oxygen Delivery Method Room Air Nasal Cannula Oxygen Flow Rate (LPM) 2 - Lab Data Lab results reviewed: Yes: I reviewed the patient's lab results. Lab Results 10/21/21 20:18: SARS-CoV-2 (PCR) Not detected, Influenza A Untype (PCR) Not detected, Influenza Type B (PCR) Not detected 10/21/21 20:22: Urine Color Yellow, Urine Appearance Clear, Urine pH 6.0, Ur Specific [place] 1.010, Urine Protein Negative, Urine Glucose (UA) Negative, Urine Ketones Negative, Urine Blood Negative, Urine Nitrate Negative, Urine Bilirubin Negative, Urine Urobilinogen 0.2, Ur Leukocyte Esterase Negative, Urine WBC Occasional, Ur Squamous Epith Cells 3-5, Urine Bacteria Trace 10/21/21 20:51: WBC 10.7, RBC 5.04, Hgb 13.7, Hct 44.9, MCV 89.0, MCH 27.3, MCHC 30.6 L, RDW 15.9, Plt Count 352, MPV 8.7, Neut % (Auto) 74.4, Lymph % (Auto) 17.5, [place] % (Auto) 5.7, Eos % (Auto) 1.4, Baso % (Auto) 1.0, Neut # (Auto) 7.9 H, Lymph # (Auto) 1.9, [place] # (Auto) 0.6, Eos # (Auto) 0.2, Baso # (Auto) 0.1, ESR 19 10/21/21 20:51: Sodium 133 L, Potassium 4.1, Chloride 96 L, Carbon Dioxide 30, Anion Gap 11.1, BUN 8, Creatinine 1.00, Estimated Creat Clear 117, Estimated GFR 57 L, Est GFR ( Amer) 68, Glucose 99, Calcium 8.7, Total Bilirubin 0.5, AST 29, ALT 22, Alkaline Phosphatase 109, Troponin I < 0.01, C-Reactive Protein 19.5 H, NT-Pro-B Natriuret Pep 148 H, Total Protein 7.3, Albumin 3.8, Globulin 3.5 H, Albumin/Globulin Ratio 1.1, Procalcitonin 0.040, TSH 2.09, Thyroxine (T4) 11.7 H 10/21/21 20:51: Lactate 1.0 Result diagrams: 10/21/21 20:51 10/21/21 20:51 Orders (Tests/Meds): ED MEDICATIONS Generic Name Dose Route Start Last Admin Trade Name Freq PRN Reason Stop Dose Admin Sodium Chloride 1,000 mls @ 999 mls/hr 10/21/21 21:00 10/21/21 21:02 Sod Chlor 0.9% 1000ml Bag IV 10/21/21 22:00 999 mls/hr .Q1H1M CHINO Administration Sodium Chloride 1,000 mls @ 999 mls/hr 10/21/21 22:00 10/21/21 22:00 Sod Chlor 0.9% 1000ml Bag IV 10/21/21 23:00 999 mls/hr .Q1H1M CHINO Administration Sodium Chloride 8 ml 10/21/21 20:55 Sodium Chloride 0.9% 10ml Vial IV 11/20/21 20:54 NEEDED PRN dilute pepcid Discontinued Medications Generic Name Dose Route Start Last Admin Trade Name Freq PRN Reason Stop Dose Admin Famotidine 20 mg 10/21/21 20:55 10/21/21 21:09 Famotidine 20mg/2ml Vial IV 10/21/21 20:56 20 mg ONCE ONE Administration Metoclopramide HCl 10 mg 10/21/21 20:55 10/21/21 21:02 Metoclopramide Hcl 10mg/2ml Vial IVP 10/21/21 20:56 10 mg ONCE ONE Administration Ondansetron HCl 4 mg 10/21/21 20:55 10/21/21 21:03 Ondansetron 4mg/2ml Vial IV 10/21/21 20:56 4 mg ONCE ONE Administration OR
== END 2021-10-21 23:52 | disposition home or self-care (01) ==
PROVIDERS: Emergency Provider Emergency Medicine; PCP Nurse Practitioner Family
DX: K52.9 Noninfective gastroenteritis and colitis, unspecified (principal); I10 Essential (primary) hypertension; E78.5 Hyperlipidemia, unspecified; Z99.81 Dependence on supplemental oxygen; K21.9 Gastro-esophageal reflux disease without esophagitis; J44.9 Chronic obstructive pulmonary disease, unspecified; E03.9 Hypothyroidism, unspecified; Z20.822 Contact with and (suspected) exposure to COVID-19; Z79.899 Other long term (current) drug therapy
CPT/HCPCS: 71046; 80053; 81001; 83605; 83880; 84145; 84436; 84443; 84484; 85025; 85651; 86140; 87040; 93005; 96365; 96375; 99284; C9803; J2405; U0003; U0005

== ENCOUNTER → 2021-10-22 10:20 | Outpatient (CLI) | payer MEDICARE, SELFPAY ==
[2021-10-22 10:38] LABS: Adenovirus F 40/41, stool Not Detected (NotDetected); Astrovirus Not Detected (NotDetected); Campylobacter Not Detected (NotDetected); Clostridium Difficile A/B, PCR Not Detected (NotDetected); Cryptosporidium Not Detected (NotDetected); Cyclospora Cayetanesis Not Detected (NotDetected); Entamoeba histolytica Not Detected (NotDetected); Enteroaggregative E coli Not Detected (NotDetected); Enteropathogenic E coli Not Detected (NotDetected); Enterotoxigenic E coli Not Detected (NotDetected); Giardia lamblia Not Detected (NotDetected); Norovirus Not Detected (NotDetected); Plesimonas Shigalloides, PCR Not Detected (NotDetected); Rotavirus A Not Detected (NotDetected); Salmonella, PCR Not Detected (NotDetected); Sapovirus Not Detected (NotDetected); Shiga-like toxin E coli Not Detected (NotDetected); Shigella Enterovasive E coli Not Detected (NotDetected); Vibrio Cholerae Not Detected (NotDetected); Vibrio, PCR Not Detected (NotDetected); Yersinia Entercolitica, PCR Not Detected (NotDetected)
== END ==
PROVIDERS: Visit Provider Emergency Medicine
DX: A04.72 Enterocolitis due to Clostridium difficile, not specified as recurrent (principal)
CPT/HCPCS: 87506

== ENCOUNTER → 2021-10-22 10:34 | Outpatient (POV) | payer MEDICARE, SELFPAY ==
[2021-10-22 12:05] VITALS: BP 144/60; PULSE 90; RESP 18; TEMP 36.3; O2SAT 90; BMI 38.2
--- NOTE | 2021-10-22 14:44 | HMH.PAINSOAP ---
[facility] Pain Management SOAP Note Subjective:: Patient is a very pleasant 61-year-old white female who presents today for follow-up. She is currently being managed for degenerative disease of the lumbar spine or lumbar radiculopathy. She recently went underwent spinal cord stimulator generator and leads removal and placement of intrathecal pain pump system with catheter and reservoir/battery on October 07, 2021. She was last seen last week for wound check and her wounds were healing greatly. Since her last visit she states that her constipation had resolved but she has been experiencing significant episodes of diarrhea and was evaluated in the emergency room pending work-up results. She states that she submitted a stool sample today for further evaluation. She has since stopped taking her stool softeners at this time. She continues to experience chronic low back and hip pain and rates her pain today as 8 out of 10. Objective:: General: Alert and oriented x3, no acute distress, pleasant and cooperative Lungs: Resps E/U, symmetric chest expansion Eyes: PERRL Musculoskeletal: limited flexion and extension of the lumbar spine secondary to pain. Deep tendon reflexes were normal in bilateral lower extremities. Motor exam was grossly intact in the bilateral lower extremities, antalgic gait noted. Neurological: Speech is clear, supervisor photocomposition equal, no gross sensory deficits Assessment:: Degenerative disc disease of lumbar spine with lumbar radiculopathy Plan:: We will remove ant today but I will keep some intact for additional time for better wound healing. I discussed with the patient that we will not make any changes to her pump today given her pending work-up regarding the etiology of her diarrhea. We will follow-up with this patient in 1 week for reassessment of her chronic pain symptoms and possible pump adjustment at that time should her symptoms resolve and we will also reevaluate her incision sites for additional staple removal at that time. Je and prior drug screens were reviewed and appropriate. [facility] History Medical History: Reports:: Anxiety, Chronic Obstructive Pulmonary Disease (COPD), Gastroesophageal Reflux Disease(GERD), Home Oxygen, Hyperlipidemia, Hypertension Denies:: Cancer, Diabetes Mellitus Type 1, Diabetes Mellitus Type 2, Internal Pacemaker, MRSA, Seizures *Have you ever received a pneumonia vaccine?: Yes *Have you received a flu vaccine this season?: Yes Other Medical History: Reports: Arthritis, Hypothyroidism, Sinus Problems, Thyroid Disease, Other. Denies: Blood Transfusion Reaction Laterality Cases: Left: Arthroscopy Knee Other Surgeries: Yes: No Previous Surgery, Cardiac Catheterization, Colonoscopy, , EGD, Hernia Repair, Hysterectomy-Total, Sinus Surgery, Tubal Ligation, Other. No: Pacemaker Amputation: No Fractures: No - *Social History Smoking Status: Current every day smoker Tobacco Type: cigarettes # Packs/Day (cigarettes): 2 Alcohol Intake: never Substance Use Type: denies use *Occupational Status:: other Housing: house Household Members: spouse *Travel in the last 8 weeks: None - Psychiatric History Pschychiatric History:: Reports:: Anxiety Family Hx:: Cancer, Coronary Artery Disease, Hypertension
== END ==
PROVIDERS: Visit Provider Anesthesiology Pain Medicine
DX: M51.16 Intervertebral disc disorders with radiculopathy, lumbar region (principal)
CPT/HCPCS: 62368; 87506; 99212; G0463

== ENCOUNTER → 2021-10-23 08:40 | Outpatient (CLI) | payer MEDICARE, SELFPAY ==
[2021-10-23 09:15] LABS: Chloride 99 mmol/L (98-107)
[2021-10-23 09:16] LABS: Potassium 4.1 mmoL/L (3.5-5.1); Sodium 135 mmol/L (136-145)
[2021-10-23 09:19] LABS: Anion Gap 10.1 mEq/L (5-15); Blood Urea Nitrogen 5 mg/dl (7-17); Calcium 8.5 mg/dl (8.4-10.2); Carbon Dioxide 30 mmol/L (22.0-30.0); Estimated Glomerular Filt Rate 102 ml/min (>60); GFR (African American) 123 ML/MIN (>60); Glucose 93 mg/dl (74-100); Magnesium 1.8 mg/dl (1.6-2.3)
== END ==
PROVIDERS: Visit Provider Physician Assistant
DX: R25.2 Cramp and spasm (principal)
CPT/HCPCS: 36415; 80048; 83735

== ENCOUNTER → 2021-10-29 09:11 | Outpatient (CLI) | payer MEDICARE, SELFPAY ==
[2021-10-29 10:38] LABS: Blood Urea Nitrogen 6 mg/dl (7-17); Calcium 9.2 mg/dl (8.4-10.2); Carbon Dioxide 31 mmol/L (22.0-30.0); Chloride 99 mmol/L (98-107); Estimated Glomerular Filt Rate 85 ml/min (>60); GFR (African American) 103 ML/MIN (>60); Glucose 90 mg/dl (74-100); Sodium 138 mmol/L (136-145)
== END ==
PROVIDERS: Visit Provider Internal Medicine Cardiovascular Disease
DX: E66.9 Obesity, unspecified (principal); E78.5 Hyperlipidemia, unspecified; F17.200 Nicotine dependence, unspecified, uncomplicated; I10 Essential (primary) hypertension; I25.10 Atherosclerotic heart disease of native coronary artery without angina pectoris; I50.33 Acute on chronic diastolic (congestive) heart failure; J44.9 Chronic obstructive pulmonary disease, unspecified; K21.9 Gastro-esophageal reflux disease without esophagitis; M79.604 Pain in right leg; M79.605 Pain in left leg; R06.00 Dyspnea, unspecified; R07.89 Other chest pain; R53.83 Other fatigue; R94.30 Abnormal result of cardiovascular function study, unspecified
CPT/HCPCS: 36415; 80048

== ENCOUNTER → 2021-10-29 09:59 | Outpatient (POV) | payer MEDICARE, SELFPAY ==
[2021-10-29 10:20] VITALS: BP 131/82; PULSE 81; RESP 20; TEMP 36.8; O2SAT 91; BMI 38.2
--- NOTE | 2021-10-29 13:03 | P.CONS_ITS ---
[facility] Pain Management SOAP Note Subjective:: Patient is a pleasant 61-year-old female who presents today for a 4 week follow- up. [facility] History Medical History: Reports:: Anxiety, Chronic Obstructive Pulmonary Disease (COPD), Gastroesophageal Reflux Disease(GERD), Home Oxygen, Hyperlipidemia, Hypertension Denies:: Cancer, Diabetes Mellitus Type 1, Diabetes Mellitus Type 2, Internal Pacemaker, MRSA, Seizures *Have you ever received a pneumonia vaccine?: Yes *Have you received a flu vaccine this season?: Yes Other Medical History: Reports: Arthritis, Hypothyroidism, Sinus Problems, Thyroid Disease, Other. Denies: Blood Transfusion Reaction Laterality Cases: Left: Arthroscopy Knee Other Surgeries: Yes: No Previous Surgery, Cardiac Catheterization, Colonoscopy, , EGD, Hernia Repair, Hysterectomy-Total, Sinus Surgery, Tubal Ligation, Other. No: Pacemaker Amputation: No Fractures: No - *Social History Smoking Status: Current every day smoker Tobacco Type: cigarettes # Packs/Day (cigarettes): 2 Alcohol Intake: never Substance Use Type: denies use *Occupational Status:: unemployed Housing: house Household Members: spouse *Travel in the last 8 weeks: None - Psychiatric History Pschychiatric History:: Reports:: Anxiety Family Hx:: Cancer, Coronary Artery Disease, Hypertension
--- NOTE | 2021-10-29 13:23 | P.PCN_ITS ---
- Procedure Date: 10/29/21 Time: 13:23 Anesthesiologist:: MELISSA Campoverde Complications:: None Pre-procedure Diagnosis:: Degenerative disc disease of the lumbar spine with lumbar radiculopathy symptoms Post-procedure Diagnosis:: Same Indications for Procedure:: Patient is a pleasant 61-year-old female who comes in here today for a 4-week follow-up after her intrathecal pain pump placement. Patient is currently being treated for degenerative disc disease of the lumbar spine with lumbar radiculopathy symptoms. Patient is currently being managed with morphine 5 mg/mL at a rate of 0.2 mg/day. We will set up her PTC device today. Today, patient has been complaining of severe diarrhea for the last 2 weeks. Patient did state that she just started taking magnesium that was prescribed by her millwork estimator. She is also unsure if the morphine is no longer giving her diarrhea. Additionally, she has been having some generalized itchiness in the last couple of weeks. At the moment, patient says that the medication is helping manage her pain. Rates her pain today as 0 out of 10. [facility] #[id number] with an active morphine equivalent of 0. General: Alert and oriented x3, no acute distress, pleasant and cooperative, [on room air] Lungs: Respirations even and unlabored, symmetrical chest expansion Eyes: PERRL Musculoskeletal: Flexion and extension of lumbar [spine] somewhat guarded secondary to pain, [antalgic gait noted] Neurological: Speech clear, no gross sensory deficit Procedure Details:: Informed consent was obtained and the risk and benefits of the procedure were explained to the patient. Patient was taken to the procedure room where noninvasive monitoring was placed including noninvasive blood pressure cuff and pulse oximeter. Patient's pump was interrogated and was reprogrammed and continued at Morphine 0.2mg/day. PTC device was setup to Morphine 0.02mg up to 4 times per day. The patient tolerated the procedure well with no complications. Plan and Disposition:: Patient is a pleasant 61-year-old female who had an intrathecal pain pump placed about 4 weeks ago. Her surgical incisions are healing well and well approximated. I did notice some redness and minimal diffusion on the lateral incision. There is no drainage and swelling. We will reapply Steri-Strips on these surgical incisions. We did leave a couple of sutures in. I will also start the patient on another course of prophylactic antibiotics with Bactrim DS for 5 days. Additionally, patient says that she has been having severe diarrhea in the last couple of weeks. She did say that she was just started on magnesium by her millwork estimator. I discussed with the patient that this could be causing her diarrhea instead of the morphine. I advised the patient to contact her millwork estimator to see if they can figure out a different medication for her. Patient also says that she has been having generalized itchiness. I will start her on some hydroxyzine 25 mg twice a day. We will see the patient back in the clinic at the next intrathecal refill. Patient has been instructed to contact the clinic with any concerns before the next appointment. Dr. Shields has reviewed this note and agrees with this plan of care. This note was dictated using voice recognition software and make contain errors or omissions.
== END ==
PROVIDERS: Visit Provider Student in an Organized Health Care Education/Training Program
DX: M51.16 Intervertebral disc disorders with radiculopathy, lumbar region (principal); Z45.1 Encounter for adjustment and management of infusion pump; E87.5 Hyperkalemia
CPT/HCPCS: 36415; 62368; 80048

== ENCOUNTER → 2021-11-05 10:14 | Outpatient (POV) | payer MEDICARE, SELFPAY ==
[2021-11-05 10:29] VITALS: BP 119/53; PULSE 82; RESP 20; TEMP 36.2; O2SAT 90; BMI 38.2
--- NOTE | 2021-11-05 13:20 | HMH.PMPROC ---
- Procedure Date: 11/05/21 Time: 13:20 Anesthesiologist:: MELISSA Campoverde Complications:: None Pre-procedure Diagnosis:: Degenerative disc disease of lumbar spine with lumbar radiculopathy symptoms Post-procedure Diagnosis:: Same Indications for Procedure:: Patient is a pleasant 61-year-old female who presents today for follow-up. Patient is currently being treated for degenerative disc disease of the lumbar spine with lumbar radiculopathy symptoms. Patient had an intrathecal pain pump placed on October 07, 2021. Patient is currently being managed with morphine 0.2 mg/day with PTC boluses of 0.2 mg up to 4 times a day. When we last saw this patient, she was complaining of itchiness and diarrhea. I discussed with the patient last time that the magnesium that she recently started taking might be causing her diarrhea and I also started her on Vistaril 25 mg twice a day. Today she says that her diarrhea has resolved. She still having significant itchiness especially at night even with the Vistaril. Additionally she is having nausea since we put in the pump. She rates her pain today 0 out of 10. General: No recent weight changes, no fever, no sleep disturbances Respiratory: No cough, no shortness of air, no recurring pulmonary infections Cardiovascular/peripheral vascular: No chest pain, no palpitations, no edema, no shortness of breath Gastrointestinal: No new onset incontinence, normal bowel movements reported Genitourinary: No new onset incontinence Musculoskeletal: Low back pain Psychiatric: [Normal mood/affect] Neurological: [Denies weakness in extremities], [denies balance issues] Procedure Details:: Informed consent was obtained and the risk and benefits of the procedure were explained to the patient. Patient was taken to the procedure room where noninvasive monitoring was placed including noninvasive blood pressure cuff and pulse oximeter. Patient's pump was interrogated and was reprogrammed to morphine 0 mg/mL. The patient tolerated the procedure well with no complications. Plan and Disposition:: We turn off her pain pump today to see if her nausea and itchiness improves. We will follow up with the patient on Tuesday. We will most likely change the patient's medication to Dilaudid if her symptoms improved after turning off the morphine. Surgical incisions are healing well and well approximated. There is no drainage, erythema, swelling. Patient has been instructed to contact the clinic with any concerns before the next appointment. Dr. Shields has reviewed this note and agrees with this plan of care. This note was dictated using voice recognition software and make contain errors or omissions.
== END ==
PROVIDERS: Visit Provider Student in an Organized Health Care Education/Training Program
DX: M51.16 Intervertebral disc disorders with radiculopathy, lumbar region (principal); Z45.1 Encounter for adjustment and management of infusion pump
CPT/HCPCS: 62368; 70486; 99212; G0463

== ENCOUNTER → 2021-11-05 10:48 | Outpatient (CLI) | payer MEDICARE, SELFPAY ==
--- NOTE | 2021-11-05 10:49 | CT_ITS ---
FINAL REPORT TECHNIQUE: Thin section axial CT images of the facial bones and sinuses were obtained without contrast. Coronal reformatted images were also obtained.This study was performed with techniques to keep radiation doses as low as reasonably achievable, (ALARA). Individualized dose reduction techniques using automated exposure control or adjustment of mA and/or kV according to the patient''''s size were employed. CLINICAL HISTORY: chronic sinus COMPARISON: October 28, 2019 FINDINGS: There is no significant mucosal thickening. There is a fluid level in the left sphenoid sinus consistent with acute left sphenoid sinusitis. This is a new finding since the prior exam. The ostiomeatal units have an unremarkable appearance. There is minimal right nasal septal deviation. No fracture or acute bony abnormality is identified. IMPRESSION: Acute left sphenoid sinusitis. Reviewed, Interpreted and Dictated by Brendan Multani III, MD Transcribed by Helga Diaz Authenticated by Brendan Multani III, MD on 11/05/2021 01:16:56 PM [facility]
== END ==
PROVIDERS: PCP Nurse Practitioner Family; Visit Provider Otolaryngology
DX: J32.9 Chronic sinusitis, unspecified (principal)
CPT/HCPCS: 70486

== ENCOUNTER → 2021-11-09 10:11 | Outpatient (POV) | payer MEDICARE, SELFPAY ==
[2021-11-09 11:34] VITALS: BP 118/67; PULSE 92; RESP 18; TEMP 36.4; O2SAT 90; BMI 37.3
--- NOTE | 2021-11-09 14:34 | HMH.PAINSOAP ---
[facility] Pain Management SOAP Note Subjective:: Patient is a pleasant 61-year-old female who presents today for follow-up. Patient is currently being treated for degenerative disc disease of the lumbar spine with lumbar radiculopathy symptoms patient had an intrathecal pain pump that was placed on October 07, 2021. When we last saw this patient, patient was complaining of worsening nausea and itchiness. We decided to turn off her intrathecal pain pump. She was being managed with morphine 0.2 mg/day with PTC boluses of 0.02 mg up to 4 times a day. After starting the pump for 5 days, patient's nausea and itchiness have resolved. She does say that she is still having intermittent diarrhea. The diarrhea is most likely not related to her pain pump. She did state that she had 0 out of 10 pain when she had the pump. Today, she rates her pain as 8 out of 10 on bilateral legs and back. [facility] #[id number] with an active morphine equivalent of 0. General: No recent weight changes, no fever, no sleep disturbances Respiratory: No cough, no shortness of air, no recurring pulmonary infections Cardiovascular/peripheral vascular: No chest pain, no palpitations, no edema, no shortness of breath Gastrointestinal: No new onset incontinence, normal bowel movements reported Genitourinary: No new onset incontinence Musculoskeletal: Low back pain Psychiatric: [Normal mood/affect] Neurological: [Denies weakness in extremities], [denies balance issues] Objective:: General: Alert and oriented x3, no acute distress, pleasant and cooperative, [on room air] Lungs: Respirations even and unlabored, symmetrical chest expansion Eyes: PERRL Musculoskeletal: Flexion and extension of lumbar [spine] somewhat guarded secondary to pain, [antalgic gait noted] Neurological: Speech clear, no gross sensory deficit Assessment:: Degenerative disc disease of the lumbar spine with lumbar radiculopathy symptoms Plan:: Patient has been having nausea and itchiness since we placed her pump. I have given the patient Zofran and Vistaril for these. These medications have not helped the patient. Last week, we decided to turn off her morphine pump. After turning off her morphine pump, patient's nausea and itchiness have improved. We will schedule the patient for a change in medication to Dilaudid. Again, she was at morphine 0.2 mg/day with PTC boluses of 0.02 mg up to 4 times a day. In the meantime, I will start the patient on diclofenac 75 mg 3 times a day. Patient has been instructed to contact the clinic with any concerns before the next appointment. Dr. Shields has reviewed this note and agrees with this plan of care. This note was dictated using voice recognition software and make contain errors or omissions. [facility] History Medical History: Reports:: Anxiety, Chronic Obstructive Pulmonary Disease (COPD), Gastroesophageal Reflux Disease(GERD), Home Oxygen, Hyperlipidemia, Hypertension Denies:: Cancer, Diabetes Mellitus Type 1, Diabetes Mellitus Type 2, Internal Pacemaker, MRSA, Seizures *Have you ever received a pneumonia vaccine?: Yes *Have you received a flu vaccine this season?: Yes Other Medical History: Reports: Arthritis, Hypothyroidism, Sinus Problems, Thyroid Disease, Other. Denies: Blood Transfusion Reaction Laterality Cases: Left: Arthroscopy Knee Other Surgeries: Yes: No Previous Surgery, Cardiac Catheterization, Colonoscopy, , EGD, Hernia Repair, Hysterectomy-Total, Sinus Surgery, Tubal Ligation, Other. No: Pacemaker Amputation: No Fractures: No - *Social History Smoking Status: Current every day smoker Tobacco Type: cigarettes # Packs/Day (cigarettes): 2 Alcohol Intake: never Substance Use Type: denies use *Occupational Status:: other Housing: house Household Members: spouse *Travel in the last 8 weeks: None - Psychiatric History Pschychiatric History:: Reports:: Anxiety Family Hx:: Cancer, Coronary Artery Disease, Hypertension
== END ==
PROVIDERS: Visit Provider Student in an Organized Health Care Education/Training Program
DX: M51.16 Intervertebral disc disorders with radiculopathy, lumbar region (principal)
CPT/HCPCS: 99212; G0463

== ENCOUNTER 2021-11-13 14:53 | Day surgery (SDC) | payer MEDICARE, SELFPAY ==
[2021-11-13 14:54] VITALS: BP 150/74; BP 153/75; BP 197/86; PULSE 79; PULSE 80; PULSE 87; RESP 20; RESP 24; TEMP 36.3; O2SAT 92; O2SAT 93; O2SAT 95; BMI 37.5
--- NOTE | 2021-11-13 14:56 | P.PCN_ITS ---
- Procedure Date: 11/13/21 Time: 14:56 Anesthesiologist:: Lesli Villagomez MD Complications:: None Pre-procedure Diagnosis:: Degenerative disc disease of lumbar spine with lumbar radiculopathy Post-procedure Diagnosis:: Same Indications for Procedure:: This patient is a very pleasant 61-year-old white female who presents today for a double Procedure. She currently has an intrathecal pump with a flow [place] system with intrathecal morphine unfortunately she experienced significant nausea with morphine. The nausea resolved after we turned off her pump temporarily. The plan for today is for the patient to undergo intrathecal pain pump refill and reprogram with a double cap procedure for medication change from intrathecal morphine to Dilaudid. Procedure Details:: Informed consent was obtained and the risks and benefits of the procedure was explained to the patient. The patient was taken to the procedure room. The pump was interrogated. The area over the pump was prepped using ChloraPrep. The pump was accessed with a 22-gauge needle. Approximately [19.5] mL's of the intrathecal solution was withdrawn and discarded as needle was withdrawn and d iscarded. The pump was then refilled with 20 mL's of intrathecal [dilaudid 1mg/ml]. Next, the catheter side-port was accessed and 2 mL of medication and CSF was freely withdrawn. The pump was interrogated again so that the medication in the internal tubing can travel to the tip of the catheter. Once the old medication was now and then catheter after[ 9 minutes], 2 mL of fluid again was withdrawn from the catheter side-port. Next the needle was withdrawn and discarded. The pump was re-interrogated so that the daily dose will be[ 0.1 mg/day] with the constant flow setting]. The patient tolerated the procedure well with no complications. Plan and Disposition:: Follow-up with this patient in 1 week. Will reevaluate pain symptoms at that time and possible pump adjustment as well if indicated.
[2021-11-13 15:25] VITALS: BP 165/77; PULSE 77; RESP 20; O2SAT 97
== END 2021-11-13 15:25 | disposition home or self-care (01) ==
LOC: SC.PAINP 14:54
PROVIDERS: PCP Nurse Practitioner Family; Visit Provider Anesthesiology Pain Medicine
DX: M51.16 Intervertebral disc disorders with radiculopathy, lumbar region (principal); Z45.1 Encounter for adjustment and management of infusion pump; I10 Essential (primary) hypertension; Z72.0 Tobacco use; E78.5 Hyperlipidemia, unspecified; I11.0 Hypertensive heart disease with heart failure; I50.9 Heart failure, unspecified; J44.9 Chronic obstructive pulmonary disease, unspecified; K21.9 Gastro-esophageal reflux disease without esophagitis; I25.10 Atherosclerotic heart disease of native coronary artery without angina pectoris; M79.7 Fibromyalgia; E03.9 Hypothyroidism, unspecified
CPT/HCPCS: 62370; C1772

== ENCOUNTER → 2021-11-16 14:09 | Outpatient (POV) | payer MEDICARE, SELFPAY ==
[2021-11-16 14:51] VITALS: BP 100/83; PULSE 95; RESP 20; TEMP 36.8; O2SAT 95; BMI 37.3
--- NOTE | 2021-11-16 17:47 | HMH.PMPROC ---
- Procedure Date: 11/16/21 Time: 17:47 Anesthesiologist:: MELISSA Campoverde Complications:: None Pre-procedure Diagnosis:: Degenerative disc disease of the lumbar spine with lumbar radiculopathy symptoms Post-procedure Diagnosis:: Same Indications for Procedure:: Patient is a pleasant 7-year-old female who presents today for intrathecal pain pump reprogram]. The patient is being treated for degenerative disc disease of the lumbar spine with lumbar radiculopathy symptoms. Patient is currently being treated with Dilaudid 0.01 mg/day. We recently changed this patient to Dilaudid from morphine because she was having pruritus and nausea with the morphine. Since we change, patient states that she has not noticed any side effects from this medication. Though, she is in a small dose of the medication. Patient states that she does not feel like the medication is helping her at the moment and would like an adjustment. Patient rates pain a 10 out of 10. Drug screen is appropriate. Je [id number] has been reviewed and is appropriate. Physical exam General: Alert and oriented x3, no acute distress, pleasant and cooperative, [on room air] Lungs: Respirations even and unlabored, symmetrical chest expansion Eyes: PERRL Musculoskeletal: Flexion and extension of lumbar [spine] somewhat guarded secondary to pain, [antalgic gait noted] Neurological: Speech clear, no gross sensory deficit Procedure Details:: Informed consent was obtained and the risk and benefits of the procedure were explained to the patient. Patient was taken to the procedure room where noninvasive monitoring was placed including noninvasive blood pressure cuff and pulse oximeter. Patient's pump was interrogated and was reprogrammed and increased to Dilaudid 0.012 mg/day. The patient tolerated the procedure well with no complications. Plan and Disposition:: Follow-up in 1 week. Patient has been instructed to contact the clinic with any concerns before the next appointment. Dr. Shields has reviewed this note and agrees with this plan of care. This note was dictated using voice recognition software and make contain errors or omissions.
== END ==
PROVIDERS: Visit Provider Student in an Organized Health Care Education/Training Program
DX: M51.16 Intervertebral disc disorders with radiculopathy, lumbar region (principal); Z45.1 Encounter for adjustment and management of infusion pump
CPT/HCPCS: 62370; 99212; G0463

== ENCOUNTER → 2021-11-23 11:01 | Outpatient (POV) | payer MEDICARE, SELFPAY ==
[2021-11-23 11:16] VITALS: BP 120/66; PULSE 87; RESP 20; TEMP 35.9; O2SAT 93; BMI 37.3
--- NOTE | 2021-11-23 12:03 | P.PCN_ITS ---
- Procedure Date: 11/23/21 Time: 12:03 Anesthesiologist:: MELISSA Campoverde Complications:: None Pre-procedure Diagnosis:: Degenerative disc disease of lumbar spine with lumbar radiculopathy symptoms Post-procedure Diagnosis:: Same Indications for Procedure:: Patient is a pleasant 81-year-old female who presents today for intrathecal pain pump reprogram]. The patient is being treated for degenerative disc disease of lumbar spine with lumbar radiculopathy symptoms. She is currently being managed with Dilaudid 1 mg/mL at a rate of 0.012 mg/day. Patient rates pain a 6 out of 10. She is wanting adjustment today. Patient is also following up with us because she has been having diarrhea since placement of the pump. We did recently change her to Dilaudid from morphine because she was having pruritus, nausea with the morphine. The nausea and pruritus has improved since changing her to Dilaudid. She continues to have intermittent diarrhea. She says that she was having 4-5 bowel movements a day. She did not have any diarrhea yesterday. She has seen a special forces weapons sergeant who said that her test came back negative. Drug screen is appropriate. Je [ ] has been reviewed and is appropriate. Physical exam General: Alert and oriented x3, no acute distress, pleasant and cooperative, [on room air] Lungs: Respirations even and unlabored, symmetrical chest expansion Eyes: PERRL Musculoskeletal: Flexion and extension of lumbar [spine] somewhat guarded secondary to pain, [antalgic gait noted] Neurological: Speech clear, no gross sensory deficit Procedure Details:: Informed consent was obtained and the risk and benefits of the procedure were explained to the patient. Patient was taken to the procedure room where noninvasive monitoring was placed including noninvasive blood pressure cuff and pulse oximeter. Patient's pump was interrogated and was reprogrammed to Dilaudid 0.014 mg/day. The patient tolerated the procedure well with no complications. Plan and Disposition:: I recommended the patient try some Metamucil or any fiber supplement to help bulk up her stool. I discussed with her that this could be IBS. We will see the patient back in the clinic at the next intrathecal refill. Patient has been instructed to contact the clinic with any concerns before the next appointment. Dr. Shields has reviewed this note and agrees with this plan of care. This note was dictated using voice recognition software and make contain errors or omissions.
== END ==
PROVIDERS: Visit Provider Student in an Organized Health Care Education/Training Program
DX: M51.16 Intervertebral disc disorders with radiculopathy, lumbar region (principal); Z45.1 Encounter for adjustment and management of infusion pump
CPT/HCPCS: 62368; 99213; G0463

== ENCOUNTER → 2021-12-10 09:55 | Outpatient (POV) | payer MEDICARE, SELFPAY ==
[2021-12-10 10:21] VITALS: BP 138/90; PULSE 70; RESP 18; TEMP 36.3; O2SAT 92; BMI 37.5
--- NOTE | 2021-12-10 12:33 | HMH.PMPROC ---
- Procedure Date: 12/10/21 Time: 12:40 Anesthesiologist:: MELISSA Campoverde Complications:: None Pre-procedure Diagnosis:: Degenerative disc disease of lumbar spine with lumbar radiculopathy symptoms Post-procedure Diagnosis:: Same Indications for Procedure:: Patient is a pleasant 61-year-old female who presents today for intrathecal pain pump reprogram]. The patient is being treated for degenerative disc disease of lumbar spine with lumbar radiculopathy symptoms. Patient is currently being managed with intrathecal Dilaudid 1 mg/mL at a rate of 0.014 mg/day. We did recently switch her from morphine to Dilaudid because she was having pruritus, nausea with the morphine. The side effects have resolved with the Dilaudid. Denies any side effects from his medication. Patient rates pain a 10 out of 10. Patient states that she has been having worsening bilateral hip pain and low back pain in the last couple weeks. She says that she has been taking care of her son in the hospital and has been having to walk for longer periods of time. She says that the pain starts on her bilateral upper buttocks that radiates down to her bilateral legs. Denies any recent falls or traumas. Drug screen is appropriate. Je [id number] with an active morphine equivalent of 0 has been reviewed and is appropriate. Physical exam General: Alert and oriented x3, no acute distress, pleasant and cooperative, [on room air] Lungs: Respirations even and unlabored, symmetrical chest expansion Eyes: PERRL Musculoskeletal: Flexion and extension of lumbar [spine] somewhat guarded secondary to pain, [antalgic gait noted]; bilateral SI are positive for SHANNAN, Candice's, [place]'s, [place]'s, compression, and distraction. Patient is tender to palpation on her left greater trochanteric bursa. Neurological: Speech clear, no gross sensory deficit Procedure Details:: Informed consent was obtained and the risk and benefits of the procedure were explained to the patient. Patient was taken to the procedure room where noninvasive monitoring was placed including noninvasive blood pressure cuff and pulse oximeter. Patient's pump was interrogated and was reprogrammed to Dilaudid 0.017 mg/day. The patient tolerated the procedure well with no complications. We still cannot set up her PTC because her constant dose is still low. Plan and Disposition:: I tried to schedule the patient for a bilateral SI injection. She is hesitant to proceed with this procedure. Instead, I will start her on prednisone 20 mg twice daily for 5 days, tizanidine 2 mg 3 times a day for 14 days, diclofenac 75 mg twice a day for 14 days. Follow-up in 14 days. Patient has been instructed to contact the clinic with any concerns before the next appointment. Dr. Shields has reviewed this note and agrees with this plan of care. This note was dictated using voice recognition software and make contain errors or omissions.
== END ==
PROVIDERS: Visit Provider Student in an Organized Health Care Education/Training Program
DX: M51.16 Intervertebral disc disorders with radiculopathy, lumbar region (principal); Z45.1 Encounter for adjustment and management of infusion pump
CPT/HCPCS: 62368; 99213; G0463

== ENCOUNTER → 2021-12-21 10:57 | Outpatient (POV) | payer MEDICARE, SELFPAY ==
--- NOTE | 2021-12-21 11:52 | HMH.PMPROC ---
- Procedure Date: 12/21/21 Time: 11:53 Anesthesiologist:: Roberto Miller CRNA Complications:: None Pre-procedure Diagnosis:: Degenerative disc disease lumbar spine multilevels. Lumbar radiculopathy symptoms. Bilateral sacroiliitis. Post-procedure Diagnosis:: Same Indications for Procedure:: This patient is a pleasant 61-year-old female who is currently being managed with intrathecal pain pump. She currently is being managed with Dilaudid 1 mg/mL. At a rate of 0.017 mg/day. However, patient is having some pain that she describes as constant, dull, aching. Upon examination pain is not in the midline. It appears to be over the bilateral SI joints. She has extreme point tenderness over the bilateral SI joints. Patient is not really interested in injective therapy. However, after a detailed discussion regarding the SI joints and SI joint blocks patient is interested in having the procedure. Also, I informed the patient we will increase her pump today. If this takes care of her pain? She can cancel the SI joint injections. However, if she continues having the pain we can inject her bilateral SI joints. Patient rates the pain 8/10. Pain increases when walking for any length of time. Pain increases during transition of standing from a sitting position. Procedure Details:: Details of the procedure were explained to the patient. The intrathecal pain pump was interrogated. The rate was increased to 0.0188 mg/day. Plan and Disposition:: Patient will return to see us for bilateral SI joint injections.
[2021-12-21 12:27] VITALS: BP 141/66; PULSE 57; RESP 18; TEMP 35.7; O2SAT 96; BMI 38.2
== END ==
PROVIDERS: Visit Provider Nurse Anesthetist, Certified Registered
DX: M51.16 Intervertebral disc disorders with radiculopathy, lumbar region (principal); M46.1 Sacroiliitis, not elsewhere classified
CPT/HCPCS: 62368; 99213; G0463

== ENCOUNTER → 2021-12-24 09:51 | Outpatient (CLI) | payer MEDICARE, SELFPAY ==
[2021-12-24 10:50] LABS: Blood Urea Nitrogen 7 mg/dl (7-17); Calcium 9.2 mg/dl (8.4-10.2); Carbon Dioxide 31 mmol/L (22.0-30.0); Chloride 101 mmol/L (98-107); Estimated Glomerular Filt Rate 85 ml/min (>60); GFR (African American) 103 ML/MIN (>60); Glucose 99 mg/dl (74-100); Sodium 137 mmol/L (136-145)
== END ==
PROVIDERS: PCP Nurse Practitioner Family; Visit Provider Nurse Practitioner
DX: F17.200 Nicotine dependence, unspecified, uncomplicated (principal); I25.10 Atherosclerotic heart disease of native coronary artery without angina pectoris; I50.33 Acute on chronic diastolic (congestive) heart failure; R06.00 Dyspnea, unspecified; R53.83 Other fatigue; R94.30 Abnormal result of cardiovascular function study, unspecified
CPT/HCPCS: 36415; 80048

== ENCOUNTER → 2021-12-31 11:23 | Outpatient (POV) | payer MEDICARE, SELFPAY ==
[2021-12-31 12:09] VITALS: BP 133/73; PULSE 86; RESP 18; TEMP 35.9; O2SAT 92; BMI 36.8
--- NOTE | 2021-12-31 12:11 | HMH.PMPROC ---
- Procedure Date: 12/31/21 Time: 12:11 Anesthesiologist:: MELISSA Campoverde Complications:: None Pre-procedure Diagnosis:: Degenerative disc disease of lumbar spine with lumbar radiculopathy symptoms, bilateral sacroiliitis Post-procedure Diagnosis:: Same Indications for Procedure:: Patient is a pleasant 61-year-old female who presents today for intrathecal pain pump reprogram. The patient is being treated for degenerative disc disease lumbar spine with lumbar radiculopathy symptoms, bilateral sacroiliitis. Patient is currently being managed with Dilaudid 1 mg/mL at a rate of 0.0188 mg/day. Denies any side effects with this medication. Patient rates pain a 10 out of 10. She is wanting an adjustment today. Drug screen is appropriate. Je [id number] has been reviewed and is appropriate. When we last saw this patient, she was complaining of bilateral upper buttock pain. She was scheduled to get bilateral SI injections but decided to cancel this procedure. She says that she had this injection in the past that worsened her pain. After examining her today, her bilateral SI are positive for SHANNAN, Candice's, [place]'s, [place]'s, compression, and distraction. I discussed with her that she could benefit from bilateral SI injections. She is also tender to palpation around the right greater trochanteric bursa's. She might also benefit from trochanteric bursa injections. Patient wants to hold off in any injective therapy at the moment and wants to see if the increase in dosage would help the patient. Interval History: Patient had morphine in her pump previously but she was having worsening nausea and itchiness. The nausea and itchiness resolved after changing her to Dilaudid. Physical exam General: Alert and oriented x3, no acute distress, pleasant and cooperative, [on room air] Lungs: Respirations even and unlabored, symmetrical chest expansion Eyes: PERRL Musculoskeletal: Flexion and extension of lumbar [spine] somewhat guarded secondary to pain, [antalgic gait noted]; bilateral SI are positive for SHANNAN, Candice's, [place]'s, [place]'s, compression, and distraction. Neurological: Speech clear, no gross sensory deficit Procedure Details:: Informed consent was obtained and the risk and benefits of the procedure were explained to the patient. Patient was taken to the procedure room where noninvasive monitoring was placed including noninvasive blood pressure cuff and pulse oximeter. Patient's pump was interrogated and was reprogrammed to Dilaudid 0.023 mg/day. The patient tolerated the procedure well with no complications. Plan and Disposition:: Will follow up with the patient in 2 weeks to see if the increase in dosage helps her pain. Patient wants to hold off in any injective therapy at the moment. We will asked the patient at her follow-up to see if she needs injective therapy. Patient has been instructed to contact the clinic with any concerns before the next appointment. Dr. Shileds has reviewed this note and agrees with this plan of care. This note was dictated using voice recognition software and make contain errors or omissions.
== END ==
PROVIDERS: Visit Provider Student in an Organized Health Care Education/Training Program
DX: M51.16 Intervertebral disc disorders with radiculopathy, lumbar region (principal); M46.1 Sacroiliitis, not elsewhere classified; Z45.1 Encounter for adjustment and management of infusion pump
CPT/HCPCS: 62368; 99213; G0463

== ENCOUNTER → 2022-01-21 12:54 | Outpatient (POV) | payer MEDICARE, SELFPAY ==
[2022-01-21 13:21] VITALS: BP 143/60; PULSE 82; RESP 18; TEMP 37; O2SAT 94; BMI 36.8
--- NOTE | 2022-01-21 15:42 | HMH.PMPROC ---
- Procedure Date: 01/21/22 Time: 15:42 Anesthesiologist:: MELISSA Campoverde Complications:: None Pre-procedure Diagnosis:: Degenerative disc disease of the lumbar spine with lumbar radiculopathy symptoms bilateral sacroiliitis Post-procedure Diagnosis:: Same Indications for Procedure:: Patient is a pleasant 61-year-old female who presents today for intrathecal pain pump adjustment. The patient is being treated for degenerative disc disease of lumbar spine with lumbar radiculopathy symptoms. Patient is currently being managed with Dilaudid 1 mg/mL at a rate of 0.0 to 3 mg/day. Patient denies any side effects from this medication. Patient rates pain a 9 out of 10. Drug screen is appropriate. Je [id number] has been reviewed and is appropriate. We have changed this patient from morphine to Dilaudid because she could not tolerate the medication. Additionally, she is complaining of pain around her bilateral upper buttocks. I discussed with her that she may need bilateral SI injections because she is positive for SHANNAN, Candice's, [place]'s, [place]'s, compression, and distraction on bilateral SI. She may also benefit from TPI around the lower bilateral paraspinous muscles. She is not interested in these interventions at this time. Physical exam General: Alert and oriented x3, no acute distress, pleasant and cooperative Lungs: Respirations even and unlabored, symmetrical chest expansion Eyes: PERRL Musculoskeletal: Flexion and extension of lumbar [spine] somewhat guarded secondary to pain, [antalgic gait noted] Neurological: Speech clear, no gross sensory deficit Procedure Details:: Informed consent was obtained and the risk and benefits of the procedure were explained to the patient. Patient was taken to the procedure room where noninvasive monitoring was placed including noninvasive blood pressure cuff and pulse oximeter. Patient's pump was interrogated and was reprogrammed to Dilaudid 0.034 mg/day. The patient tolerated the procedure well with no complications. Plan and Disposition:: We will see the patient back in the clinic at the next intrathecal refill. Patient has been instructed to contact the clinic with any concerns before the next appointment. Dr. Shields has reviewed this note and agrees with this plan of care. This note was dictated using voice recognition software and make contain errors or omissions.
== END ==
PROVIDERS: Visit Provider Student in an Organized Health Care Education/Training Program
DX: M51.16 Intervertebral disc disorders with radiculopathy, lumbar region (principal); M46.1 Sacroiliitis, not elsewhere classified
CPT/HCPCS: 62368; 99213; G0463

== ENCOUNTER 2022-01-29 10:25 | Day surgery (SDC) | payer MEDICARE, SELFPAY ==
[2022-01-29 10:35] VITALS: BP 111/78; PULSE 73; RESP 18; TEMP 36.3; O2SAT 90; BMI 38.2
[2022-01-29 10:47] VITALS: BP 126/67; BP 129/68; PULSE 67; PULSE 69; RESP 18; RESP 19; O2SAT 94
[2022-01-29 11:05] VITALS: BP 146/78; PULSE 65; RESP 20; O2SAT 97
--- NOTE | 2022-01-29 11:12 | P.PCN_ITS ---
- Procedure Date: 01/29/22 Time: 11:12 Anesthesiologist:: Roberto Miller CRNA Complications:: None Pre-procedure Diagnosis:: Bilateral sacroiliitis. Post-procedure Diagnosis:: Same Indications for Procedure:: Very pleasant 61-year-old female who presents today for bilateral SI joint injections. Patient currently being managed with intrathecal pain pump as well. She has extreme point tenderness over the bilateral SI joints. She has had the injections in the past. Procedure Details:: Procedure: Bilateral sacroiliac joint injections under fluoroscopy Informed consent was obtained and the risks and benefits of the procedure were explained to the patient.~ The patient was taken to the procedure room and noninvasive monitors were placed including a noninvasive blood pressure cuff and pulse oximeter.~ The patient was placed prone on the procedure table. Both hips were cleansed using Betadine as a cleansing solution. C-arm fluoroscopy was used to view the right sacroiliac joint.~ The skin and subcutaneous tissues were anesthetized using lidocaine 1.5% and a 25-gauge needle.~ After this, a 22-gauge spinal needle was inserted under fluoroscopic guidance into the inferior aspect of the right sacroiliac joint.~ Omnipaque dye was injected and good spread was seen throughout the joint.~ After this, approximately 5 mL of bupivacaine, 0.25% and Depo-Medrol, 40 mg was incrementally injected into the right sacroiliac joint. We then moved to the left sacroiliac joint.~ The skin and subcutaneous tissues were anesthetized using lidocaine 1.5% and a 25-gauge needle.~ After this, a 22- gauge spinal needle was inserted under fluoroscopic guidance into the inferior aspect of the left sacroiliac joint.~ Omnipaque dye was injected and good spread was seen throughout the joint. After this, approximately 5 mL of bupivacaine, 0.25% and Depo-Medrol, 40 mg was incrementally injected into the left sacroiliac joint.~ The patient tolerated the procedure well with no complications. The patient was observed in the Pain Clinic and then was discharged home neurologically intact. Plan and Disposition:: Patient was discharged without incident.
== END 2022-01-29 11:05 | disposition home or self-care (01) ==
LOC: SC.PAINP 10:27
PROVIDERS: PCP Nurse Practitioner Family; Visit Provider Nurse Anesthetist, Certified Registered
DX: M46.1 Sacroiliitis, not elsewhere classified (principal)
CPT/HCPCS: 27096; G0260; J1040

== ENCOUNTER 2022-02-08 13:05 | Day surgery (SDC) | payer MEDICARE, SELFPAY ==
[2022-02-08 13:22] VITALS: BP 153/57; PULSE 69; RESP 18; TEMP 36.3; O2SAT 91; BMI 36.8
[2022-02-08 13:31] VITALS: BP 114/64; PULSE 75; RESP 20; O2SAT 92
--- NOTE | 2022-02-08 13:41 | HMH.PMPROC ---
- Procedure Date: 02/08/22 Time: 13:41 Anesthesiologist:: MELISSA Campoverde Complications:: None Pre-procedure Diagnosis:: Degenerative disc disease of lumbar spine with lumbar radiculopathy symptoms bilateral sacroiliitis Post-procedure Diagnosis:: Same Indications for Procedure:: Patient is a pleasant 81-year-old white female who presents today for intrathecal pain pump refill and adjustment. The patient is being treated for degenerative disc disease of lumbar spine with lumbar radiculopathy symptoms bilateral sacroiliitis. Patient is currently being managed with Dilaudid 1 mg/mL 4 0.034 mg/day. Patient denies any side effects from this medication. Patient rates pain a 6 out of 10. Drug screen is appropriate. Je [id number] has been reviewed and is appropriate. Patient recently had bilateral SI injections. Patient says these injections helped decrease pain by 80 to 90%. Physical exam General: Alert and oriented x3, no acute distress, pleasant and cooperative Lungs: Respirations even and unlabored, symmetrical chest expansion Eyes: PERRL Musculoskeletal: Flexion and extension of lumbar [spine] somewhat guarded secondary to pain, [antalgic gait noted] Neurological: Speech clear, no gross sensory deficit Procedure Details:: Informed consent was obtained and the risk and benefits of the procedure were explained to the patient. The patient was taken to the procedure room where noninvasive monitoring was placed including noninvasive blood pressure cuff and pulse oximeter. Patient's pump was interrogated. The area over the pump was cleansed with chlorhexidine as a cleansing solution. [Fluoroscopy was used to access the pump]. In sterile fashion the pump was accessed with a 22-gauge needle. Approximately 17 mls of the pump solution was removed and discarded appropriately. The pump was then refilled with 20 mL's of Dilaudid 1 mg/ml. The needle was withdrawn and a bandage was placed over the puncture site. The infusion rate was reprogrammed and increased to 0.04 mg/day. We also set up her PTC device that provides Dilaudid 0.004 mg up to 4 times a day. The patient tolerated well with no complication. Plan and Disposition:: We will see the patient back in the clinic at the next intrathecal refill. Patient has been instructed to contact the clinic with any concerns before the next appointment. Dr. Shields has reviewed this note and agrees with this plan of care. This note was dictated using voice recognition software and make contain errors or omissions.
[2022-02-08 13:55] VITALS: BP 151/76; PULSE 64; RESP 20; O2SAT 92
== END 2022-02-08 13:55 | disposition home or self-care (01) ==
LOC: SC.PAINP 13:05
PROVIDERS: PCP Nurse Practitioner Family; Visit Provider Student in an Organized Health Care Education/Training Program
DX: M51.16 Intervertebral disc disorders with radiculopathy, lumbar region (principal); M46.1 Sacroiliitis, not elsewhere classified
CPT/HCPCS: 62370

== ENCOUNTER → 2022-03-02 11:48 | Outpatient (CLI) | payer MEDICARE, SELFPAY ==
--- NOTE | 2022-03-02 11:56 | XR_ITS ---
FINAL REPORT CLINICAL HISTORY: Hypoxia COMPARISON: 10/21/2021 FINDINGS: TWO-VIEW CHEST The heart size is normal. The mediastinum is normal. There is fibrosis in the lung bases. There is oblique linear scar in the right upper lobe, stable. There is no pneumothorax. IMPRESSION: Fibrosis in the lung bases. Reviewed, Interpreted and Dictated by Sumeet Floyd MD Transcribed by Lacy Graham Authenticated and [facility]
== END ==
PROVIDERS: PCP Nurse Practitioner Family; Visit Provider Internal Medicine Pulmonary Disease
DX: R06.02 Shortness of breath (principal)
CPT/HCPCS: 71046; 87070; 87205

== ENCOUNTER → 2022-04-15 07:28 | Outpatient (CLI) | payer MEDICARE, SELFPAY ==
[2022-04-15 08:20] VITALS: PULSE 84; PULSE 86
--- NOTE | 2022-04-15 08:27 | PC.NURSE ---
PT UNABLE TO DO 6 MWT AT THIS TIME. SHE CANNOT PUT ANY WEIGHT ON HER KNEE.
--- NOTE | 2022-04-15 08:44 | CT_ITS ---
FINAL REPORT CLINICAL HISTORY: lung cancer screening current smoker COMPARISON: 03/11/2021 FINDINGS: CTDI vol (mGy): 2.[address] images of the chest were obtained using the low-dose protocol for screening. There is no evidence of mediastinal or hilar mass or adenopathy. No axillary mass or adenopathy is identified. On the lung window images, a 6 mm, stable nodule is seen along the left major fissure on image number 28 additional, small nodular densities along the left major fissure seen on image 45 are also stable. No new pulmonary nodules are seen. There is emphysema and evidence of prior granulomatous disease. IMPRESSION: Stable, 6 mm nodule along the left major fissure with additional, stable small nodular densities. Lung RADS category 2. Recommend 12 month followup low-dose CT for further evaluation. Reviewed, Interpreted and Dictated by Tamie Thibodeaux MD Transcribed by Hanny Porras Authenticated and [facility]
--- NOTE | 2022-04-15 09:51 | EXP.PAIN.PRO ---
Procedure Date: 04/15/22 Time: 09:50 Anesthesiologist:: Georgiana Zelaya APRN Complications:: None Pre-procedure Diagnosis:: Degenerative disc disease of lumbar spine with lumbar radiculopathy symptoms, bilateral sacroiliitis Post-procedure Diagnosis:: Same Indications for Procedure:: Patient is a pleasant 61-year-old female that presents today for follow-up. We are currently treating the patient for degenerative disc disease of lumbar spine with lumbar radiculopathy symptoms, bilateral sacroiliitis. Today she rates her pain a 7 out of 10. She states this is all in her low back from her waist down. She denies any new trauma or injury to the site. She denies any change in the location or type of pain she experiences. Patient states this is an aching, throbbing sensation that is worse with activity. She states she has been using her PTC device with minimal improvement of her symptoms. She is requesting a increase in her pump dose at today's visit. Her Je is [id number]. It has been reviewed and appropriate. Physical Exam: General: Alert and oriented x3, no acute distress, pleasant and cooperative Lungs: Respirations even and unlabored, symmetrical chest expansion Eyes: PERRL Musculoskeletal: Flexion and extension of lumbar [spine] somewhat guarded secondary to pain, [antalgic gait noted] Neurological: Speech clear, no gross sensory deficit Procedure Details:: Informed consent was obtained and the risk and benefits of the procedure were explained to the patient. Patient was taken to the procedure room where noninvasive monitoring was placed including noninvasive blood pressure cuff and pulse oximeter. Patient's pump was interrogated and was reprogrammed to Dilaudid 1 mg/mL for with a daily dose of 0.044 mg/day. The patient tolerated the procedure well with no complications. Plan and Disposition:: Patient will return to clinic in 2 weeks for follow-up and reevaluation of symptoms. Patient has been instructed to contact the clinic with any concerns before the next appointment. Dr. Shields has reviewed this note and agrees with this plan of care. This note was dictated using voice recognition software and make contain errors or omissions. -- It Is medically necessary for this patient to continue to have their intrathecal pump refilled at regular intervals. This patient had an intrathecal pain pump implanted after meeting criteria of chronic intractable pain for greater than 3 months and failing conservative treatments. Patient has committed and been compliant to the treatment plan and all planned follow up care. Since implantation of the intrathecal pain pump, the patient has had decreased pain and been more functional. Oral medications have been reduced including intake of oral opioids. Patient continues to do well with intrathecal therapy with decrease in pain symptoms and increase in functional status. Stopping intrathecal medications can lead to life threatening withdrawal, seizures, cardiac arrest, severe pain, and possible . Pumps that are not refilled at regular intervals can be damages and cause and need for replacement. We continually titrate dose and concentration to optimize pain relief and function. We are limited in concentration for certain drugs to safely deliver medications through the pump and stay within the recommendations from the Polyanalgesic Consensus Committee Guidelines. Depending on dose and concentration these pumps may need to be refilled sooner than 3 months as we titrate.
== END | disposition home or self-care (01) ==
PROVIDERS: PCP Nurse Practitioner Family; Visit Provider Nurse Practitioner Family
DX: F17.210 Nicotine dependence, cigarettes, uncomplicated
CPT/HCPCS: 71271; 94060; 94640; 94727; 94729

== ENCOUNTER → 2022-04-15 09:42 | Outpatient (POV) | payer MEDICARE, SELFPAY ==
[2022-04-15 09:43] VITALS: BP 142/69; PULSE 85; RESP 18; TEMP 36.4; O2SAT 93; BMI 36.8
== END ==
PROVIDERS: Visit Provider Nurse Practitioner Family
DX: M51.16 Intervertebral disc disorders with radiculopathy, lumbar region (principal); M46.1 Sacroiliitis, not elsewhere classified; Z72.0 Tobacco use
CPT/HCPCS: 62368; 71271; 94060; 94640; 94727; 94729; 99212; G0463

== ENCOUNTER → 2022-05-17 09:55 | Outpatient (POV) | payer MEDICARE, SELFPAY ==
[2022-05-17 10:48] VITALS: BP 150/81; PULSE 87; RESP 18; TEMP 36.9; O2SAT 92; BMI 40.1
--- NOTE | 2022-05-17 10:51 | P.PCN_ITS ---
Procedure Date: 05/17/22 Time: 10:59 Anesthesiologist:: Georgiana Zelaya APRN Complications:: None Pre-procedure Diagnosis:: Degenerative disc disease lumbar spine with lumbar radiculopathy symptoms, bilateral sacroiliitis Post-procedure Diagnosis:: Same Indications for Procedure:: Patient is a pleasant 61-year-old female who presents today for follow-up and intrathecal pain pump adjustment. The patient is being treated for degenerative disc disease lumbar spine with lumbar radiculopathy symptoms, bilateral sacroiliitis]. Patient is currently being managed with Dilaudid 1 mg/mL with a daily dose of 0.044 mg/day. Patient denies any side effects from this medication. Patient rates pain a 10 out of 10. She states the pain is all in her low back that radiates into her right leg and right knee. She states she does have issues with her right knee due to a tendon tear. Patient denies any new trauma or injury. Patient denies any change to the location or type of pain she experiences. Drug screen is appropriate. Physical exam General: Alert and oriented x3, no acute distress, pleasant and cooperative Lungs: Respirations even and unlabored, symmetrical chest expansion Eyes: PERRL Musculoskeletal: Flexion and extension of [lumbar] [spine] somewhat guarded secondary to pain, [antalgic gait noted] Neurological: Speech clear, no gross sensory deficit Procedure Details:: Informed consent was obtained and the risk and benefits of the procedure were explained to the patient. Patient was taken to the procedure room where noninvasive monitoring was placed including noninvasive blood pressure cuff and pulse oximeter. Patient's pump was interrogated and was reprogrammed to Dilaudid 1 mg/mL with a daily dose of 0.0484 mg/day. The patient tolerated the procedure well with no complications. Plan and Disposition:: We will see the patient back in the clinic at the next intrathecal refill. At her next visit we will follow-up and see whether or not the 10% increase in her pump medication has improved her symptoms. Patient has been instructed to contact the clinic with any concerns before the next appointment. Dr. Shields has reviewed this note and agrees with this plan of care. This note was dictated using voice recognition software and make contain errors or omissions. -- It Is medically necessary for this patient to continue to have their intrathecal pump refilled at regular intervals. This patient had an intrathecal pain pump implanted after meeting criteria of chronic intractable pain for greater than 3 months and failing conservative treatments. Patient has committed and been compliant to the treatment plan and all planned follow up care. Since implantation of the intrathecal pain pump, the patient has had decreased pain and been more functional. Oral medications have been reduced including intake of oral opioids. Patient continues to do well with intrathecal therapy with decrease in pain symptoms and increase in functional status. Stopping in trathecal medications can lead to life threatening withdrawal, seizures, cardiac arrest, severe pain, and possible . Pumps that are not refilled at regular intervals can be damages and cause and need for replacement. We continually titrate dose and concentration to optimize pain relief and function. We are limited in concentration for certain drugs to safely deliver medications through the pump and stay within the recommendations from the Polyanalgesic Consensus Committee Guidelines. Depending on dose and concentration these pumps may need to be refilled sooner than 3 months as we titrate.
== END | disposition home or self-care (01) ==
PROVIDERS: Visit Provider Nurse Practitioner Family
DX: M51.16 Intervertebral disc disorders with radiculopathy, lumbar region (principal); M46.1 Sacroiliitis, not elsewhere classified
CPT/HCPCS: 62368; 99213; G0463

== ENCOUNTER 2022-05-25 12:20 | Day surgery (SDC) | payer MEDICARE, SELFPAY ==
[2022-05-25 12:51] VITALS: BP 116/66; PULSE 82; RESP 20; TEMP 36.7; O2SAT 99; BMI 40.1
[2022-05-25 12:57] VITALS: BP 155/82; PULSE 75; RESP 20; O2SAT 98
[2022-05-25 12:58] VITALS: BP 155/82; PULSE 75; RESP 20; O2SAT 98
[2022-05-25 13:16] VITALS: BP 123/62; PULSE 70; RESP 20
--- NOTE | 2022-05-25 13:20 | EXP.PAIN.PRO ---
Procedure Date: 05/25/22 Time: 13:16 Anesthesiologist:: Roberto Miller CRNA Complications:: None Pre-procedure Diagnosis:: Degenerative disc disease lumbar spine with lumbar radiculopathy symptoms, bilateral sacroiliitis Post-procedure Diagnosis:: Same Indications for Procedure:: Patient is a pleasant 61-year-old female who presents today for intrathecal pain pump refill and reprogram. We are currently treating the patient for degenerative disc disease lumbar spine with lumbar radiculopathy symptoms, bilateral sacroiliitis. Today the patient rates her pain a 8 out of 10. She states that here lately she feels very fatigued with little energy. Patient denies any other symptoms. Patient is currently managed with Dilaudid 1 mg/mL with 0.484 mg/day. Patient denies any side effects from this medication. She states this medication does help manage her pain symptoms. Physical exam General: Alert and oriented x3, cooperative and pleasant, no acute distress Lungs: Symmetrical chest expansion, respirations even and unlabored Eyes: PERRL Musculoskeletal: Flexion and extension of lumbar spine somewhat guarded secondary to pain, antalgic gait noted Neurological: Speech clear, no gross sensory deficit Procedure Details:: Informed consent was obtained and the risk and benefits of the procedure were explained to the patient. Patient was taken to the procedure room where noninvasive blood pressure cuff and pulse oximeter were placed on the patient. In a sitting position the pump was interrogated. Using chlorhexidine as a cleansing solution the area over the pump was cleansed. Approximately 14.8 mL of pump solution was expected from the interrogation. The pump was accessed using a 22-gauge needle and there was 15 mL of pump solution was removed and discarded appropriately. The pump was then refilled with 20 mL of Dilaudid 1 mg/mL. Needle was removed and a sterile bandage was applied over the puncture site. Pump was then reinterrogated and continued at Dilaudid 0.0484 mg/day. Patient tolerated the procedure well with no complications. Plan and Disposition:: We will see the patient back at their next intrathecal pain pump refill date. We have counseled the patient to contact the office with any questions or concerns before the next appointment date. Dr. Shields is reviewed this note and agrees with this plan of care. This note was dictated using voice recognition software and may contain errors or omissions.
== END 2022-05-25 13:17 | disposition home or self-care (01) ==
LOC: SC.PAINP 12:21
PROVIDERS: PCP Nurse Practitioner Family; Visit Provider Nurse Anesthetist, Certified Registered
DX: M51.16 Intervertebral disc disorders with radiculopathy, lumbar region (principal); M46.1 Sacroiliitis, not elsewhere classified
CPT/HCPCS: 62370

== ENCOUNTER → 2022-06-08 09:59 | Outpatient (CLI) | payer MEDICARE, SELFPAY ==
--- NOTE | 2022-06-08 10:02 | US_ITS ---
FINAL REPORT CLINICAL HISTORY: current smoker, HTN, hyperlipidemia, previous angioplasty, bilateral claudication, bilateral rest pain, previous DEO 12/2019 (RT DEO=1.2 LT DEO=1.3). FINDINGS: ANKLE-BRACHIAL PRESSURE INDICES Pressure indices are as follows: RIGHT LOWER EXTREMITY: Ankle-brachial pressure index: 1.0 Comments: Normal LEFT LOWER EXTREMITY: Ankle-brachial pressure index: 1.0 Comments: Normal CONCLUSION: No evidence of significant obstructive peripheral vascular disease of the lower extremities Reviewed, Interpreted and Dictated by Brendan Multani III, MD Transcribed by Helga Diaz Authenticated and [facility]
== END ==
PROVIDERS: PCP Nurse Practitioner Family; Visit Provider Nurse Practitioner Family
DX: M79.604 Pain in right leg (principal); M79.605 Pain in left leg; I70.213 Atherosclerosis of native arteries of extremities with intermittent claudication, bilateral legs
CPT/HCPCS: 93923

== ENCOUNTER 2022-06-15 11:34 | Observation (INO) | payer MEDICARE, SELFPAY ==
[2022-06-15] VITALS (20 sets, daily range): BP systolic 107–171; BP diastolic 45–79; PULSE 62–92; RESP 18–22; TEMP 36.6–36.9; O2SAT 88–97; BMI 37.0; BMI 36.4
--- NOTE | 2022-06-15 11:59 | XR_ITS ---
FINAL REPORT CLINICAL HISTORY: SOA, productive cough COMPARISON: 03/02/2022 FINDINGS: A single view of the chest was obtained. The heart is normal in size. The mediastinum is unremarkable. Worsening bibasilar opacities may represent worsening atelectasis or pneumonia There is no pleural effusion. There is no pneumothorax. There is no acute osseous abnormality. IMPRESSION: Worsening bibasilar opacities may represent worsening atelectasis or pneumonia. Reviewed, Interpreted and Dictated by Brendan Multani III, MD Transcribed by Mandy Villatoro Authenticated and [facility]
--- NOTE | 2022-06-15 12:00 | ECG_ITS ---
APPROVED REPORT Exam: Resting ECG HR:70 bpm ECG Measurements Heart Rate 70 AXES [place] 114 P 69 QRSd 94 QRS 35 QT 394 T 50 QTc 415 Conclusion SINUS RHYTHM WITH SHORT NY INTERVAL WITH OCCASIONAL VENTRICULAR PREMATURE COMPLEXES INCOMPLETE RIGHT BUNDLE BRANCH BLOCK [90+ ms QRS DURATION, TERMINAL R IN V1/V2, 40+ ms S IN I/aVL/V4/V5/V6] BORDERLINE ECG UNCONFIRMED REPORT Electronically signed by : Jack Mathis MD 06/17/2022 21:12:06
--- NOTE | 2022-06-15 12:10 | HMH.EDGENADL ---
Discharge Plan Disposition Patient Disposition: Admitted As Inpatient Condition: Fair Prescriptions Prescriptions: No Action pramipexole 0.25 mg tablet 0.25 mg PO DAILY atorvastatin 40 mg tablet 40 mg PO DAILY Qty: 30 5RF furosemide 20 mg tablet 20 mg PO DAILY Qty: 30 5RF losartan 50 mg tablet 50 mg PO DAILY Qty: 30 5RF cyanocobalamin (vitamin B-12) 1,000 mcg/mL solution 1,000 mcg IM WEEKLY Label Comments: INJECT 1 ML INTO A MUSCLE 1 TIME EACH WEEK levothyroxine 50 mcg capsule 50 mcg PO DAILY alprazolam 0.5 mg tablet 0.5 mg PO DAILY PRN (Reason: Anxiety) escitalopram oxalate 20 mg tablet 20 mg PO DAILY omeprazole 40 mg capsule,delayed release(DR/EC) 40 mg PO BID Qty: 90 4RF spironolactone 25 mg tablet 25 mg PO DAILY Qty: 30 5RF potassium chloride 20 mEq tablet extended release 20 meq PO DIRECTED Qty: 60 0RF Rx Instructions: administer with food (meal or snack) empagliflozin 10 mg tablet 10 mg PO DAILY Qty: 90 3RF Spiriva Respimat 2.5 mcg/actuation mist 2 inh inhalation DAILY 90 Days Qty: 4 3RF fluticasone furoate-vilanterol [Breo Ellipta] 200-25 mcg/dose blister with device 1 inh inhalation DAILY 90 Days Qty: 90 3RF fluticasone propionate [Flonase Allergy Relief] 50 mcg/actuation spray,suspension 2 spray intranasal DAILY 90 Days Qty: 16 3RF Rx Instructions: administer into each nostril azelastine 205.5 mcg (0.15 %) spray,non-aerosol 2 spray intranasal HS 90 Days Qty: 30 3RF Rx Instructions: administer into each nostril albuterol sulfate 90 mcg/actuation HFA aerosol inhaler 1 inh IH Q6H PRN (Reason: shortness of breath or wheezing) 90 Days Qty: 8.5 3RF ipratropium-albuterol 0.5 mg-3 mg(2.5 mg base)/3 mL solution for nebulization 3 ml IH Q6H PRN (Reason: shortness of breath or wheezing) Qty: 90 6RF diltiazem HCl 180 mg capsule,extended release 24hr See Rx Instructions .ROUTE .COMPLEX Rx Instructions: TAKE 2 CAPSULES 1 TIME EACH DAY famotidine 20 mg tablet See Rx Instructions .ROUTE .COMPLEX Rx Instructions: TAKE 1 TABLET 1 TIME EACH DAY cholestyramine (with sugar) 378 GM powder 4 g PO DAILY Rx Instructions: administer w/meal; avoid other meds within 1hr before or 4-6hr after dose pregabalin 150 mg capsule 150 mg PO DAILY polyethylene glycol 3350 17 GM powder in packet 17 gm PO DAILYP PRN (Reason: Constipation) Qty: 30 0RF colestipol 1 GM tablet 1 gm PO TID tizanidine 2 MG tablet 2 mg PO TID azithromycin 250 MG tablet 250 mg PO DAILY Referrals Follow up/Referrals: Telma Naylor APRN [Primary Care Provider] - See instructions Clinical Impressions Clinical Impression: Acute respiratory failure with hypoxia, Acute exacerbation of chronic obstructive pulmonary disease, Acute bronchitis Discharge ED Provider: Salvador Lares General Adult HPI General Chief complaint: Shortness of Breath/Dyspnea Stated complaint: Shortness of breath Time Seen by Provider: 06/15/22 12:10 Mode of Arrival: Wheelchair Source of Information: Patient Limitations: No Limitations Description of Symptoms (Recalled from ER Triage Doc. by RN): Pt sent to ED from Cardiology office c/o SOA and productive cough. Pt reports that she is currently receiving antibiotic treatment for a dx of bronchitis. History of Present Illness HPI narrative: The patient is sent from the cardiology office by Lobo Batista. Patient states that she has not felt well for 2 weeks. She has had a cough producing yellow sputum. Low-grade fevers. Shortness of breath and wheezing. Some swelling of her feet. Denies chest pain. She is on an antibiotic prescribed by her primary care provider (Cefdinir 06/08/22). She is chronically on nebulizer treatments at home, last treatment this morning at 5 AM. She wears CPAP at night. She says that she does not feel like it is
[2022-06-15 12:31] LABS: Coronavirus 19, PCR Not Detected (NotDetected); Influenza A, PCR Not Detected (NotDetected); Influenza B, PCR Not Detected (NotDetected)
[2022-06-15 12:36] LABS: Basophils # 0.1 K/mm3 (0-0.2); Basophils % 0.4 % (0.1-2.0); Eosinophils # 0.1 K/mm3 (0.0-0.4); Eosinophils % 0.8 % (0.1-12.0); Hematocrit 41.3 % (37.0-47.0); Hemoglobin 12.4 g/dL (12.2-16.2); Lymphocytes # 1.4 K/mm3 (0.7-4.5); Mean Corpuscular HGB Conc 30.1 g/dL (31.8-35.4); Mean Corpuscular Hemoglobin 23.8 pg (27.0-31.2); Mean Platelet Volume 9.4 fl (7.4-10.4); Monocytes # 0.7 K/mm3 (0.1-1.0); Monocytes % 6.2 % (1.7-9.3); Neutrophils # 8.7 K/mm3 (1.8-7.8); Neutrophils % 79.5 % (37.0-80.0); Platelet Count 238 K/mm3 (142-424); Red Blood Count 5.23 M/mm3 (4.20-5.40); Red Cell Distribution Width 18.3 % (11.5-17.5)
[2022-06-15 12:40] LABS: Chloride 99 mmol/L (98-107); Potassium 4.5 mmoL/L (3.5-5.1); Sodium 139 mmol/L (136-145)
[2022-06-15 12:42] LABS: Blood Urea Nitrogen 11 mg/dl (7-17); Creatinine Clearance Estimated 190 mL/min (50-200); Estimated Glomerular Filt Rate 102 ml/min (>60); GFR (African American) 123 ML/MIN (>60)
[2022-06-15 12:43] LABS: Alanine Aminotransferase 22 U/L (12-78); Albumin Level 3.6 g/dl (3.5-5.0); Albumin/Globulin Ratio 1.2 (1.1-1.8); Alkaline Phosphatase 107 U/L (38-126); Anion Gap 9.5 mEq/L (5-15); Aspartate Amino Transferase 21 U/L (14-36); Bilirubin,Total 0.4 mg/dl (0.2-1.3); Calcium 8.5 mg/dl (8.4-10.2); Carbon Dioxide 35 mmol/L (22.0-30.0); Glucose 90 mg/dl (74-100); Total Protein,Serum 6.6 g/dl (6.3-8.2)
[2022-06-15 12:46] LABS: Lactic Acid 0.6 mmol/L (0.7-2.1)
[2022-06-15 12:52] LABS: NT Pro Brain Natriuretic Pep. 282 pg/mL (0-125)
[2022-06-15 13:01] LABS: Troponin I < 0.01 ng/ml (0.00-0.034)
--- NOTE | 2022-06-15 14:35 | CT_ITS ---
FINAL REPORT TECHNIQUE: Axial CT images were performed from the lung apices through the upper abdomen. Coronal reformats were submitted. This study was performed with techniques to keep radiation doses as low as reasonably achievable (ALARA). Individualized dose reduction techniques using automated exposure control or adjustment of mA and/or kV according to the patient's size were employed. CLINICAL HISTORY: Abnormal CXR, Tobacco, Hypoxemia, TOMER COMPARISON: Report from CT low-dose screening dated 04/15/2022 FINDINGS: There is no axillary adenopathy. There is no hilar or mediastinal mass or adenopathy. Heart size is normal. There is no pericardial or pleural effusion. There is severe emphysema. There is mild to moderate scarring greatest in the lung bases. A 6 mm nodule in the region of the inferior left major fissure is likely stable from the prior report. Prior images would not load. Limited images of the upper abdomen demonstrate no acute abnormality. IMPRESSION: Severe emphysema. Probably stable, 6 mm nodule in the region of the inferior left major fissure. Reviewed, Interpreted and Dictated by Brendan Multani III, MD Transcribed by Mandy Villatoro Authenticated and [facility]
--- NOTE | 2022-06-15 14:40 | PC.NURSE ---
Spoke to care management regarding admission
--- NOTE | 2022-06-15 14:46 | CA_ITS ---
APPROVED REPORT EXAM: Comprehensive 2D, Doppler, and color-flow Echocardiogram Residency Program Coordinator: REHANA Martinez, RVS Ht: 5 ft 11 in Wt: 266lbs BSA: 2.38 BP: 125/45 mmHg Indications: COPD, SOA, OBESITY, HTN,HLD, Smoker, Heart failure Echo Enhancing Agent Comments: Technically difficult exam due to latge body habitus with lung impedence 2D Dimensions LVOT 1.94 cm (M/F) 1.5-2.5 LA Volume 78.40 mL LA Volume Index 32.90 mL/m2 (M/F) 16-34 M-Mode Dimensions RVDd 2.17 cm (0.9-2.6) LA Diam 4.22 cm (1.9-4.0) LVDd 5.52 cm (3.5-5.7) Ao Diam 3.07 cm (2.0-3.7) LVDs 3.61 cm (3.5-5.7) IVSd 1.15 cm (0.6-1.1) PWd 1.06 cm (0.6-1.1) EF (Teich) 63.10% EPSs 0.38 cm FS 34.60% EDV (Teich) 148.70 mL TAPSE 2.61 (<1.7) ESV (Teich) 54.80 mL LV Diastology E Decel Time 213.00 (160-240 msec) E/A Ratio 0.94 MED E' 6.10 (< 7 cm/sec) MED A' 10.20 cm/s E'/MED E' Ratio 13.08 (>14) LAT E' 12.10 (<10 cm/sec) LAT A' 13.00 cm/s E/LAT E' Ratio 6.60 (>14) Aortic Valve LVOT Max 99.00 (70-110 cm/s) LVOT VTI 27.32 cm AoV Peak Tree. 166.00 (50-130 cm/s) AO Peak GR. 11.10 mmHg AO Mean GR. 5.50 (<5 mmHg) AO VTI 37.23 (18-25 cm) NAY (VTI) 2.17 (2.5-4.5 cm2) Mitral Valve MV A Velocity 85.00 (40-130 cm/s) E/A Ratio 0.94 MV Decel. Time 213.00 (160-240 ms) MV PHT 63.00 ms Pulmonary Valve PV Peak Velocity 104.00 (50-150 cm/s) Tricuspid Valve TR P. Velocity 167.00 cm/s RAP Estimate 15.00 mmHg RVSP 26.20 mmHg Left Ventricle Technically difficult study because of the patient factors and poor acoustic windows. Left atrium is mildly enlarged the left ventricle is normal size mild concentric left ventricular hypertrophy, estimated ejection fraction 55% with no regional wall motion abnormality, grade 1 diastolic dysfunction without tissue Doppler evidence of atrial atrial pressure. Right Ventricle Right atrium and right ventricle are mildly enlarged with normal contractility. Aortic Valve Aortic valve is minimally thickened and fibrosed there is no aortic stenosis or aortic insufficiency. Mitral Valve Mitral valve is grossly normal, there is trace mitral regurgitation. Tricuspid Valve Tricuspid grossly normal, there is trace tricuspid regurgitation, tricuspid regurgitation jet velocity is inadequate for calculation of the right ventricular systolic pressure. Pulmonic Valve Pulmonic valve is poorly visualized. Great Vessels Aortic root is normal size. Inferior vena cava is poorly Pericardium No significant pericardial effusion noted. Conclusion 1. Mild biatrial enlargement, normal left ventricular size, mild concentric left ventricular hypertrophy, estimated ejection fraction 55% with no regional wall motion abnormality grade 1 diastolic dysfunction with tissue Doppler evidence of raise left atrial pressure. 2. Mildly enlarged right ventricle with normal contractility. 3. Trace mitral and tricuspid regurgitation. 4. No significant pericardial effusion noted. 5. Inferior vena cava is poorly visualized. Electronically signed by : Dallas Gaxiola MD 06/15/2022 21:17:13
--- NOTE | 2022-06-15 15:13 | EXP.HP ---
History of Present Illness *Admission Date: 06/15/22 *Reason for visit:: Chief complaint: Shortness of air *History of present illness: This is a 61-year-old female that presents to [facility] emergency department with concerns of shortness of air. Her past medical history is significant for COPD with ongoing tobacco dependence 1 pack/day for greater than 40 years, obstructive sleep apnea on CPAP therapy, heart failure with preserved ejection fraction, hypothyroidism, generalized anxiety disorder, degenerative disc disease of the lumbar spine. She reports routine follow-up with her PCP Natali Naylor and describes greater than 2 weeks of a cough that has become productive yellow sputum. She reports a recent antibiotic course of cefdinir per her PCP. She reports having to use oxygen during the day and only typically we uses it at night. She reports associated fatigue and increasing shortness of air with activity. She denies retrosternal chest pain, nausea, vomiting or diarrhea. Because of her shortness of air she was referred to gate attendant and was evaluated in their office today and a room air sat of 85% was identified. Her care was transitioned to the emergency department for evaluation. In the ED her oxygen saturation on room air was 88%. Chest x-ray imaging was concerning for bilateral pulm fibrosis with opacities. Her CBC identified a leukocytosis. Her lactic acid was normal. Her oxygen saturations improved with supplemental oxygen. [facility] Medical History (Updated 06/15/22 @ 16:22 by Chris Donovan MD) Abnormal cardiovascular stress test Allergic rhinitis Allergic rhinitis, unspecified Anxiety Atypical angina Bilateral leg pain Bilateral leg pain Bilateral low back pain with sciatica CAD (coronary artery disease) Chronic bronchitis COPD (chronic obstructive pulmonary disease) Dyspnea Edema Elevated left ventricular end-diastolic pressure (LVEDP) Encounter for screening for malignant neoplasm of lung in current smoker with 30 pack year history or greater Eosinophilia Fatigue Fibromyalgia GERD (gastroesophageal reflux disease) Hyperlipidemia Hypertension Hypothyroidism Leg pain, bilateral Lung nodule Neuropathy Obesity (BMI 30-39.9) Pulmonary fibrosis, unspecified TMJ dysfunction Tobacco abuse Tobacco abuse counseling Tobacco abuse counseling Tobacco dependence syndrome Unspecified asthma, uncomplicated Surgical History History of arthroscopy of knee History of bladder suspension procedure History of cardiac cath History of section History of colonoscopy History of hemorrhoidectomy History of hysterectomy History of sinus surgery Family History (Updated 06/15/22 @ 15:41 by Chris Donovan MD) Mother Hypertension Father No problems noted. Social History (Updated 06/15/22 @ 15:43 by Chris Donovan MD) Smoking Status: Current every day smoker tobacco type: cigarettes packs per day: 1 years smoked: 40 second hand exposure: Yes alcohol intake: never substance use type: denies use current occupational status: unemployed Travel in the last 8 weeks: None household members: spouse housing: house current occupational exposures/hazards: No caffeine: Yes bobby/confucianism: Sikhism additional social history: The patient is and lives with her of 28 years. She had 1 son that at the age of 40 and is still grieving his loss. She identifies her Nitish is her POA. Review of Systems Review of Systems Review of systems (narrative): Constitutional: No fevers, no chills, no acute weight changes? Eye: No recent visual problems, eye discharge, eye pain or redness? HEENT: No ear pain, no nasal congestion, no sore throat or voice changes? Respiratory: + shortness of breath, + cough, no pain on breathing, + sputum production? Cardiovascular: No Chest pain, no palpitations, no increasing e
[2022-06-15 15:49] LABS: Hemoglobin A1C 5.5 % (4.0-6.0)
--- NOTE | 2022-06-15 15:50 | PC.NURSE ---
Called report to [facility]
--- NOTE | 2022-06-15 15:52 | PC.NURSE ---
Echo at bedside
[2022-06-15 16:03] LABS: Thyroid Stimulating Hormone 1.07 uIU/mL (0.465-4.68)
--- NOTE | 2022-06-15 16:18 | PC.NURSE ---
PT BEING TRANSPORTED UP FOR ADMISSION
[2022-06-15 16:31] LABS: Troponin I < 0.01 ng/ml (0.00-0.034)
[2022-06-15 19:38] LABS: Troponin I < 0.01 ng/ml (0.00-0.034)
[2022-06-16 03:13] VITALS: BP 154/77; PULSE 85; RESP 20; TEMP 36.5; O2SAT 92
[2022-06-16 05:00] VITALS: BMI 35.8
[2022-06-16 05:13] VITALS: PULSE 110; PULSE 112; O2SAT 91
[2022-06-16 06:34] LABS: Chloride 97 mmol/L (98-107)
[2022-06-16 06:35] LABS: Basophils % 0.5 % (0.1-2.0); Eosinophils % 0.4 % (0.1-12.0); Hemoglobin 11.9 g/dL (12.2-16.2); Lymphocytes # 0.5 K/mm3 (0.7-4.5); Lymphocytes % 9.9 % (10-50); MANUAL DIFFERENTIAL MANUAL DIFFERENTIAL (MANUAL DIFF); Mean Corpuscular HGB Conc 29.6 g/dL (31.8-35.4); Mean Corpuscular Volume 77.5 fl (81-99); Mean Platelet Volume 9.4 fl (7.4-10.4); Monocytes # 0.1 K/mm3 (0.1-1.0); Monocytes % 2.5 % (1.7-9.3); Neutrophils # 4.2 K/mm3 (1.8-7.8); Neutrophils % 86.7 % (37.0-80.0); Platelet Count 228 K/mm3 (142-424); Potassium 3.5 mmoL/L (3.5-5.1); Red Blood Count 5.17 M/mm3 (4.20-5.40); Red Cell Distribution Width 18.3 % (11.5-17.5); Sodium 136 mmol/L (136-145); White Blood Count 4.9 K/mm3 (4.8-10.8)
[2022-06-16 06:37] LABS: Blood Urea Nitrogen 11 mg/dl (7-17); Creatinine Clearance Estimated 219 mL/min (50-200); Estimated Glomerular Filt Rate 126 ml/min (>60); GFR (African American) 152 ML/MIN (>60)
[2022-06-16 06:38] LABS: Anion Gap 10.5 mEq/L (5-15); Calcium 8.6 mg/dl (8.4-10.2); Carbon Dioxide 32 mmol/L (22.0-30.0); Chol/HDL Ratio 2.9 (1-3.5); Cholesterol 123 mg/dl (140-200); Glucose 150 mg/dl (74-100); HDL Cholesterol 43 mg/dl (40-60); Magnesium 1.8 mg/dl (1.6-2.3); Triglycerides 79 mg/dl (30-150); VLDL Cholesterol 16 mg/dL (0-40)
[2022-06-16 06:49] LABS: Direct LDL Cholesterol 51.97 mg/dL (100-129)
--- NOTE | 2022-06-16 07:01 | PC.NURSE ---
Pt has been c/o a CISNEROS and congestion/allergies t/o night. Tylenol and Mucinex administered per OCT. Pt tolerating 2 L nc well with sats >90%. Pt able to ambulate to BR with walker with standby assist. Call light within reach
[2022-06-16 07:43] LABS: Lymphocytes % 9 % (10-50); Monocytes % 1 % (2-9); Neutrophils % 90 % (42-76); Total Cells Counted 100
[2022-06-16 07:44] LABS: Anisocytosis 1+; Hypochromasia 1+; Ovalocytes 1+; Platelet Estimate Normal
[2022-06-16 07:50] VITALS: BP 144/68; PULSE 88; RESP 17; TEMP 36.6; O2SAT 94
[2022-06-16 08:00] VITALS: O2SAT 92
--- NOTE | 2022-06-16 08:13 | HMH.PHAINT1 ---
Pharmacy Intervention Comments: Home medication reconciliation completed using outpatient pharmacy fill history.
[2022-06-16 09:02] LABS: Hemoglobin A1C 5.5 % (4.0-6.0)
--- NOTE | 2022-06-16 10:02 | CARE MANAGER ---
Patient's O2 sat at rest was 88% on room air. CINDY Michaud
--- NOTE | 2022-06-16 10:30 | EXP.DC.SUM ---
General Admission date:: 06/15/22 Discharge date: 06/16/22 HPI HPI HPI: This is a 61-year-old female that presents to [facility] emergency department with concerns of shortness of air. Her past medical history is significant for COPD with ongoing tobacco dependence 1 pack/day for greater than 40 years, obstructive sleep apnea on CPAP therapy, heart failure with preserved ejection fraction, hypothyroidism, generalized anxiety disorder, degenerative disc disease of the lumbar spine. She reports routine follow-up with her PCP Natali Naylor and describes greater than 2 weeks of a cough that has become productive yellow sputum. She reports a recent antibiotic course of cefdinir per her PCP. She reports having to use oxygen during the day and only typically we uses it at night. She reports associated fatigue and increasing shortness of air with activity. She denies retrosternal chest pain, nausea, vomiting or diarrhea. Because of her shortness of air she was referred to government auditor and was evaluated in their office today and a room air sat of 85% was identified. Her care was transitioned to the emergency department for evaluation. In the ED her oxygen saturation on room air was 88%. Chest x-ray imaging was concerning for bilateral pulm fibrosis with opacities. Her CBC identified a leukocytosis. Her lactic acid was normal. Her oxygen saturations improved with supplemental oxygen. Hospital Course Hospital Course Hospital Course: The patient was admitted as an inpatient to the medical floor with routine pulse oximetry monitoring. A CT scan of the chest without contrast identified severe COPD with no infiltrates. An echocardiogram was performed to assess right ventricular systolic pressure. Her laboratory studies and inflammatory markers were trended. She received scheduled nebulizer therapy including inhaled corticosteroid. She tolerated her IV steroid therapy with no adverse events. She tolerated her IV doxycycline with no adverse events. Nursing staff reports she remained afebrile with stable vital signs and saturated appropriately on 2 L of oxygen via nasal cannula. The day after admission the patient identified significant improvement and inquired about discharge home to follow-up with her PCP, government auditor and business objects report developer. Her inpatient status was transitioned to OBSERVATION. She will be discharged on a short course of doxycycline, prednisone therapy and she is to continue with her inhalation therapy at home. She will have a discussion with her business objects report developer concerning her FEV1 of 40% identified in March 2022. I have encouraged her to continue to use oxygen during the day. She will check with her PCP and oxygen company concerning availability. I have written her a prescription for nicotine replacement therapy and encourage smoking cessation. She understands the importance of complete tobacco smoking cessation to improve her health. Exam Data for Last 24 hours Vital signs and Labs for Last 24 Hours: Temp Pulse Resp BP Pulse Ox FiO2 97.9 F 88 17 144/68 H 94 L 28 06/16/22 07:50 06/16/22 07:50 06/16/22 07:50 06/16/22 07:50 06/16/22 07:50 06/15/22 19:22 Laboratory Results - last 24 hr 06/15/22 12:20: WBC 11.0 H, RBC 5.23, Hgb 12.4, Hct 41.3, MCV 79.0 L, MCH 23.8 L, MCHC 30.1 L, RDW 18.3 H, Plt Count 238, MPV 9.4, Neut % (Auto) 79.5, Lymph % (Auto) 13.0, [place] % (Auto) 6.2, Eos % (Auto) 0.8, Baso % (Auto) 0.4, Neut # (Auto) 8.7 H, Lymph # (Auto) 1.4, [place] # (Auto) 0.7, Eos # (Auto) 0.1, Baso # (Auto) 0.1 06/15/22 12:20: Sodium 139, Potassium 4.5, Chloride 99, Carbon Dioxide 35 H, Anion Gap 9.5, BUN 11, Creatinine 0.60, Estimated Creat Clear 190, Estimated GFR 102, Est GFR ( Amer) 123, Glucose 90, Calcium 8.5, Total Bilirubin 0.4, AST 21, ALT 22, Alkaline Phosphatase 107, Troponin I < 0.01, Total Protein 6.6, Albumin 3.6, Globulin 3.0, Albumin/Globulin Ratio 1.2 06/15/22 12:20: SARS-CoV-2 (PCR) Not det
[2022-06-16 10:33] VITALS: BP 156/67; PULSE 93; RESP 18; TEMP 36.4; O2SAT 95
--- NOTE | 2022-06-17 14:23 | CARE MANAGER ---
Spoke with patient for post-discharge phone interview, patient states that she is feeling better and has no issues at this time.
== END 2022-06-16 12:30 | disposition home or self-care (01) ==
LOC: ER 13:32 → 2ND 15:44
PROVIDERS: Admitting Provider Family Medicine; Emergency Provider Emergency Medicine; PCP Nurse Practitioner Family; Visit Provider Family Medicine
DX: J96.01 Acute respiratory failure with hypoxia (principal); I50.30 Unspecified diastolic (congestive) heart failure; G47.33 Obstructive sleep apnea (adult) (pediatric); E03.9 Hypothyroidism, unspecified; Z79.899 Other long term (current) drug therapy; F17.210 Nicotine dependence, cigarettes, uncomplicated; I11.0 Hypertensive heart disease with heart failure; Z20.822 Contact with and (suspected) exposure to COVID-19
CPT/HCPCS: G0378; 36415; 71045; 71250; 80048; 80053; 80061; 83036; 83605; 83735; 83880; 84443; 84484; 85007; 85025; 87040; 87070; 87077; 87186; 87205; 93005; 93306; 94640; 94760; 99285; C9803; U0003; U0005

== ENCOUNTER → 2022-07-01 11:19 | Outpatient (POV) | payer MEDICARE, SELFPAY ==
--- NOTE | 2022-07-01 11:47 | EXP.PAIN.PRO ---
Procedure Date: 07/01/22 Time: 11:55 Anesthesiologist:: Georgiana Zelaya APRN Complications:: None Pre-procedure Diagnosis:: Degenerative disc disease of lumbar spine with lumbar radiculopathy symptoms, bilateral sacroiliitis Post-procedure Diagnosis:: Same Indications for Procedure:: Patient is a pleasant 62-year-old female who presents today for intrathecal pain pump reprogramming adjustment. The patient is being treated for degenerative disc disease of lumbar spine with lumbar radiculopathy symptoms, bilateral sacroiliitis. Patient is currently being managed with Dilaudid 1 mg/mL with a daily dose of 0.0484 mg/day. Patient denies any side effects from this medication. Patient rates pain a 9 out of 10. Patient denies any new trauma or injury. Patient states she continues to have low back pain and weakness in her legs that is been going on for months. Patient is in a wheelchair at today's visit. She states she did fracture her right knee around that timeframe. Patient states she has been to physical therapy in the past however it did not provide significant improvement. Patient does states she continues to do at home exercise and stretching techniques however this is limited due to her worsening pain symptoms. Patient is prescribed pregabalin 150 mg twice a day from Justina Kennedy's office. Patient denies any side effects from this medication. She states this medication does help with her neuropathy symptoms. Drug screen is appropriate. Je [id number] has been reviewed and is appropriate. Physical exam General: Alert and oriented x3, no acute distress, pleasant and cooperative Lungs: Respirations even and unlabored, symmetrical chest expansion Eyes: PERRL Musculoskeletal: Flexion and extension of lumbar [spine] somewhat guarded secondary to pain, [antalgic gait noted] Neurological: Speech clear, no gross sensory deficit Procedure Details:: Informed consent was obtained and the risk and benefits of the procedure were explained to the patient. Patient was taken to the procedure room where noninvasive monitoring was placed including noninvasive blood pressure cuff and pulse oximeter. Patient's pump was interrogated and was reprogrammed to Dilaudid 1 mg/mL with a daily dose of 0.06 mg/day. The patient tolerated the procedure well with no complications. Plan and Disposition:: I have discussed with the patient that she may benefit from a physical therapy referral however at this time the patient is not interested. We will see the patient back in 2 weeks for reevaluation of symptoms and follow-up. Patient has been instructed to contact the clinic with any concerns before the next appointment. Dr. Shields has reviewed this note and agrees with this plan of care. This note was dictated using voice recognition software and make contain errors or omissions. -- It Is medically necessary for this patient to continue to have their intrathecal pump refilled at regular intervals. This patient had an intrathecal pain pump implanted after meeting criteria of chronic intractable pain for greater than 3 months and failing conservative treatments. Patient has committed and been compliant to the treatment plan and all planned follow up care. Since implantation of the intrathecal pain pump, the patient has had decreased pain and been more functional. Oral medications have been reduced including intake of oral opioids. Patient continues to do well with intrathecal therapy with decrease in pain symptoms and increase in functional status. Stopping intrathecal medications can lead to life threatening withdrawal, seizures, cardiac arrest, severe pain, and possible . Pumps that are not refilled at regular intervals can be damages and cause and need for replacement. We continually titrate dose and concentration to optimize pain relief and function. We are limited in concentration for certain drugs to safely deliver medications through the pump and stay within t
[2022-07-01 11:50] VITALS: BP 135/60; PULSE 75; RESP 18; O2SAT 92; BMI 36.8
== END | disposition home or self-care (01) ==
PROVIDERS: PCP Nurse Practitioner Family; Visit Provider Nurse Practitioner Family
DX: M51.16 Intervertebral disc disorders with radiculopathy, lumbar region (principal); M46.1 Sacroiliitis, not elsewhere classified
CPT/HCPCS: 62368; 99213; G0463

== ENCOUNTER → 2022-07-07 13:51 | Outpatient (CLI) | payer MEDICARE, SELFPAY ==
[2022-07-07 14:35] LABS: Basophils # 0.2 K/mm3 (0-0.2); Basophils % 1.5 % (0.1-2.0); Eosinophils # 0.1 K/mm3 (0.0-0.4); Eosinophils % 1.3 % (0.1-12.0); Hematocrit 42.7 % (37.0-47.0); Hemoglobin 12.6 g/dL (12.2-16.2); Lymphocytes # 1.3 K/mm3 (0.7-4.5); Lymphocytes % 13.2 % (10-50); Mean Corpuscular HGB Conc 29.6 g/dL (31.8-35.4); Mean Corpuscular Hemoglobin 23.1 pg (27.0-31.2); Mean Corpuscular Volume 78.2 fl (81-99); Mean Platelet Volume 9.5 fl (7.4-10.4); Monocytes # 0.6 K/mm3 (0.1-1.0); Monocytes % 6.3 % (1.7-9.3); Neutrophils # 7.5 K/mm3 (1.8-7.8); Neutrophils % 77.7 % (37.0-80.0); Platelet Count 147 K/mm3 (142-424); Red Blood Count 5.46 M/mm3 (4.20-5.40); Red Cell Distribution Width 18.9 % (11.5-17.5); White Blood Count 9.7 K/mm3 (4.8-10.8)
[2022-07-07 15:35] LABS: Anion Gap 12.7 mEq/L (5-15); Blood Urea Nitrogen 9 mg/dl (7-17); Calcium 9.5 mg/dl (8.4-10.2); Carbon Dioxide 34 mmol/L (22.0-30.0); Chloride 93 mmol/L (98-107); Estimated Glomerular Filt Rate 102 ml/min (>60); GFR (African American) 123 ML/MIN (>60); Glucose 87 mg/dl (74-100); Potassium 5.7 mmoL/L (3.5-5.1); Sodium 134 mmol/L (136-145)
== END ==
PROVIDERS: Internal Medicine Cardiovascular Disease; PCP Nurse Practitioner Family; Visit Provider Nurse Practitioner Family
DX: I25.118 Atherosclerotic heart disease of native coronary artery with other forms of angina pectoris (principal); R06.00 Dyspnea, unspecified; R60.9 Edema, unspecified; R94.30 Abnormal result of cardiovascular function study, unspecified; R10.32 Left lower quadrant pain
CPT/HCPCS: 36415; 80048; 85025

== ENCOUNTER → 2022-07-19 16:40 | Outpatient (CLI) | payer MEDICARE, SELFPAY ==
--- NOTE | 2022-07-19 17:03 | XR_ITS ---
PROCEDURE INFORMATION: Exam: XR Chest Exam date and time: 07/19/2022 5:10 PM Age: 62 years old Clinical indication: Cough and shortness of breath; Additional info: Cough, SOA TECHNIQUE: Imaging protocol: Radiologic exam of the chest. Views: 2 views. COMPARISON: CT CHEST WO CON 06/15/2022 3:20 PM FINDINGS: Lungs: Background of emphysema. No focal airspace consolidation. Pleural spaces: Unremarkable. No pleural effusion. No pneumothorax. Heart/Mediastinum: Unremarkable. No cardiomegaly. Bones/joints: Unremarkable. IMPRESSION: Background of emphysema with no acute cardiopulmonary abnormality.
[2022-07-19 17:32] LABS: Basophils # 0.1 K/mm3 (0-0.2); Basophils % 0.6 % (0.1-2.0); Eosinophils # 0.1 K/mm3 (0.0-0.4); Eosinophils % 0.9 % (0.1-12.0); Hematocrit 44.5 % (37.0-47.0); Hemoglobin 12.8 g/dL (12.2-16.2); Lymphocytes # 1.6 K/mm3 (0.7-4.5); Lymphocytes % 11.9 % (10-50); Mean Corpuscular HGB Conc 28.8 g/dL (31.8-35.4); Mean Corpuscular Hemoglobin 22.2 pg (27.0-31.2); Mean Platelet Volume 9.3 fl (7.4-10.4); Monocytes # 0.7 K/mm3 (0.1-1.0); Monocytes % 4.9 % (1.7-9.3); Neutrophils # 11.3 K/mm3 (1.8-7.8); Neutrophils % 81.8 % (37.0-80.0); Platelet Count 295 K/mm3 (142-424); Red Blood Count 5.77 M/mm3 (4.20-5.40); Red Cell Distribution Width 18.3 % (11.5-17.5); White Blood Count 13.9 K/mm3 (4.8-10.8)
[2022-07-19 18:38] LABS: Alanine Aminotransferase 19 U/L (12-78); Albumin Level 3.7 g/dl (3.5-5.0); Albumin/Globulin Ratio 1.2 (1.1-1.8); Alkaline Phosphatase 129 U/L (38-126); Aspartate Amino Transferase 22 U/L (14-36); Bilirubin,Total 0.3 mg/dl (0.2-1.3); Blood Urea Nitrogen 8 mg/dl (7-17); Calcium 9.2 mg/dl (8.4-10.2); Carbon Dioxide 36 mmol/L (22.0-30.0); Chloride 89 mmol/L (98-107); Estimated Glomerular Filt Rate 102 ml/min (>60); GFR (African American) 123 ML/MIN (>60); Globulin 3.2 g/dL (1.3-3.2); Glucose 98 mg/dl (74-100); Sodium 137 mmol/L (136-145); Total Protein,Serum 6.9 g/dl (6.3-8.2)
[2022-07-19 19:11] LABS: Anion Gap 14.8 mEq/L (5-15); Potassium 2.8 mmoL/L (3.5-5.1)
[2022-07-19 19:28] LABS: Vitamin B12 985 pg/mL (239-931)
[2022-07-19 20:12] LABS: Ferritin 15.7 ng/ml (11.1-264)
== END ==
PROVIDERS: PCP Nurse Practitioner Family; Visit Provider Physician Assistant
DX: R06.02 Shortness of breath (principal); E87.5 Hyperkalemia; D50.9 Iron deficiency anemia, unspecified; R53.1 Weakness
CPT/HCPCS: 36415; 71046; 80053; 82607; 82728; 85025

== ENCOUNTER → 2022-07-26 11:34 | Outpatient (POV) | payer MEDICARE, SELFPAY ==
[2022-07-26 11:58] VITALS: BP 146/71; PULSE 82; RESP 18; O2SAT 89; BMI 36.8
--- NOTE | 2022-07-26 12:54 | P.PCN_ITS ---
Procedure Date: 07/26/22 Time: 12:40 Anesthesiologist:: Georgiana Zelyaa APRN Complications:: None Pre-procedure Diagnosis:: Degenerative disc disease of lumbar spine with lumbar radiculopathy symptoms, bilateral sacroiliitis Post-procedure Diagnosis:: Same Indications for Procedure:: Patient is a pleasant 62-year-old female who presents today for intrathecal pain pump reprogramming adjustment. The patient is being treated for degenerative disc disease of lumbar spine with lumbar radiculopathy symptoms, sacroiliitis. Patient is currently being managed with Dilaudid 1 mg/mL with a daily dose of 0.06 mg/day. Patient denies any side effects from this medication. Patient rates pain a 10 out of 10. Patient states she has been having some issues with her potassium over the last couple weeks. Patient states that her primary care doctor had taken her off of it and then put her back on it. Patient states that she has had some weakness in her legs but she believes this is related to this issue and not her pump. Drug screen is appropriate. Je [id number] has been reviewed and is appropriate. Physical exam General: Alert and oriented x3, no acute distress, pleasant and cooperative Lungs: Respirations even and unlabored, symmetrical chest expansion Eyes: PERRL Musculoskeletal: Flexion and extension of lumbar [spine] somewhat guarded secondary to pain, [antalgic gait noted] Neurological: Speech clear, no gross sensory deficit Procedure Details:: Informed consent was obtained and the risk and benefits of the procedure were explained to the patient. Patient was taken to the procedure room where noninvasive monitoring was placed including noninvasive blood pressure cuff and pulse oximeter. Patient's pump was interrogated and was reprogrammed to Dilaudid 1 mg/mL with a daily dose of 0.066 mg/day. The patient tolerated the procedure well with no complications. Plan and Disposition:: Patient will return to clinic in 2 weeks for reevaluation of symptoms and follo w-up. Patient has been instructed to contact the clinic with any concerns before the next appointment. Dr. Shields has reviewed this note and agrees with this plan of care. This note was dictated using voice recognition software and make contain errors or omissions. -- It Is medically necessary for this patient to continue to have their intrathecal pump refilled at regular intervals. This patient had an intrathecal pain pump implanted after meeting criteria of chronic intractable pain for greater than 3 months and failing conservative treatments. Patient has committed and been compliant to the treatment plan and all planned follow up care. Since implantation of the intrathecal pain pump, the patient has had decreased pain and been more functional. Oral medications have been reduced including intake of oral opioids. Patient continues to do well with intrathecal therapy with decrease in pain symptoms and increase in functional status. Stopping intrathecal medications can lead to life threatening withdrawal, seizures, cardiac arrest, severe pain, and possible . Pumps that are not refilled at regular intervals can be damages and cause and need for replacement. We continually titrate dose and concentration to optimize pain relief and function. We are limited in concentration for certain drugs to safely deliver medications through the pump and stay within the recommendations from the Polyanalges[employer] Consensus Committee Guidelines. Depending on dose and concentration these pumps may need to be refilled sooner than 3 months as we titrate.
== END | disposition home or self-care (01) ==
PROVIDERS: PCP Nurse Practitioner Family; Visit Provider Nurse Practitioner Family
DX: M51.16 Intervertebral disc disorders with radiculopathy, lumbar region (principal); M46.1 Sacroiliitis, not elsewhere classified
CPT/HCPCS: 62368; 99212; 99213; G0463

== ENCOUNTER 2022-07-27 13:03 | Emergency (ER) | payer MEDICARE, SELFPAY ==
--- NOTE | 2022-07-27 13:14 | XR_ITS ---
FINAL REPORT CLINICAL HISTORY: weakness, exertional dyspnea COMPARISON: June 2022 FINDINGS: The heart size is normal. The mediastinum is within normal limits. There are stable pulmonary opacities consistent with scarring/fibrosis. There is no pleural effusion. There is no pneumothorax. The bony thorax is intact. IMPRESSION: No acute cardiopulmonary process. Reviewed, Interpreted and Dictated by Brendan Multani III, MD Transcribed by Bubba Desai Authenticated and . [facility]
--- NOTE | 2022-07-27 13:18 | HMH.EDWEAK ---
Discharge Plan Disposition Patient Disposition: Home, Self-Care Condition: Good Prescriptions Prescriptions: New cefdinir 300 mg capsule 300 mg PO BID 10 Days Qty: 20 0RF No Action pramipexole 0.25 mg tablet 0.25 mg PO HS atorvastatin 40 mg tablet 40 mg PO DAILY Qty: 30 5RF furosemide 20 mg tablet 20 mg PO DAILY Qty: 30 5RF losartan 50 mg tablet 50 mg PO DAILY Qty: 30 5RF cyanocobalamin (vitamin B-12) 1,000 mcg/mL solution 1,000 mcg IM WEEKLY Label Comments: INJECT 1 ML INTO A MUSCLE 1 TIME EACH WEEK levothyroxine 50 mcg capsule 50 mcg PO DAILY alprazolam 0.5 mg tablet 0.5 mg PO BID PRN (Reason: Anxiety) escitalopram oxalate 20 mg tablet 20 mg PO DAILY empagliflozin 10 mg tablet 10 mg PO DAILY Qty: 90 3RF Rx Instructions: diabetes albuterol sulfate 90 mcg/actuation HFA aerosol inhaler 1 inh IH Q6H PRN (Reason: shortness of breath or wheezing) 90 Days Qty: 8.5 3RF ipratropium-albuterol 0.5 mg-3 mg(2.5 mg base)/3 mL solution for nebulization 3 ml IH Q6H PRN (Reason: shortness of breath or wheezing) Qty: 90 6RF spironolactone 25 mg tablet 25 mg PO BID Qty: 30 4RF famotidine 20 mg tablet 20 mg PO DAILY doxycycline hyclate 100 mg capsule 100 mg PO BID fluconazole 150 mg tablet 150 mg PO DAILY nicotine 21 mg/24 hr patch 24 hour 1 patch transdermal DAILY fluticasone propionate [Flonase Allergy Relief] 50 mcg/actuation spray,suspension 2 spray intranasal DAILY Rx Instructions: administer into each nostril Spiriva Respimat 2.5 mcg/actuation mist 2 inh inhalation DAILY Rx Instructions: COPD fluticasone furoate-vilanterol [Breo Ellipta] 200-25 mcg/dose blister with device 1 inh inhalation DAILY pregabalin 150 mg capsule 150 mg PO BID polyethylene glycol 3350 17 GM powder in packet 17 gm PO DAILYP PRN (Reason: Constipation) Qty: 30 0RF colestipol 1 GM tablet 1 gm PO BID diltiazem HCl 180 mg capsule,extended release 24hr 360 mg PO DAILY Label Comments: TAKE 2 CAPSULES 1 TIME EACH DAY FOR BLOOD PRESSURE omeprazole 40 mg capsule,delayed release(DR/EC) 40 mg PO DAILY Referrals Follow up/Referrals: Telma Naylor APRN [Primary Care Provider] - See instructions Activity Restrictions/Add. Instructions Additional Instructions/Restrictions: Please follow-up with your primary care physician in the next 1 to 2 days. Please continue to drink plenty of water and discussed with your primary care physician regarding repeat labs to check your sodium levels. Please return if any worsening symptoms. Clinical Impressions Clinical Impression: Acute hyponatremia, UTI (urinary tract infection) Instructions Patient Instructions: DI for Urinary Tract Infection (UTI), DI for Hyponatremia Print Language Print Language: [place] Discharge ED Provider: Katie Prado HPI General Chief complaint: Weakness Stated complaint: chest congestion, weakness Time Seen by Provider: 07/27/22 13:03 Mode of Arrival: Ambulatory Source of Information: Patient Limitations: No Limitations History of Present Illness HPI Narrative: Lorna is a 62 yo female w/ PMH for tobacco abuse, pulmonary fibrosis, COPD, HTN, HLD, HFpEF w/ perserved EF presenting with chest congestion and generalized weakness for 3-4 days. Patient reports a non productive cough and worsening congestion. She is still able to eat and drink but reports genearlized weakness. No fevers, abdominal pain, bowel changes, urinary sx or other infectious symptoms. Denies chest pain or dyspnea. MD Complaint: generalized weakness Onset (ago): day(s) Duration: constant Location: generalized Migration: none Severity: mild Related Data Home Medications Medication Instructions Recorded Confirmed levothyroxine 50 mcg capsule 50 mcg PO DAILY hypothyroid 01/25/19 07/26/22 pramipexole 0.25 mg t
[2022-07-27 13:31] VITALS: BP 126/62; BP 128/87; PULSE 83; PULSE 88; RESP 20; TEMP 36.7; O2SAT 88; O2SAT 89; BMI 36.8
[2022-07-27 14:00] VITALS: BP 133/78; PULSE 74; O2SAT 89
[2022-07-27 14:03] LABS: Coronavirus 19, PCR Not Detected (NotDetected); Influenza A, PCR Not Detected (NotDetected); Influenza B, PCR Not Detected (NotDetected)
[2022-07-27 14:04] LABS: Chloride 98 mmol/L (98-107)
[2022-07-27 14:05] LABS: Potassium 4.7 mmoL/L (3.5-5.1); Sodium 129 mmol/L (136-145)
[2022-07-27 14:07] LABS: Alanine Aminotransferase 19 U/L (12-78); Aspartate Amino Transferase 25 U/L (14-36); Blood Urea Nitrogen 12 mg/dl (7-17); Creatinine Clearance Estimated 112 mL/min (50-200); Estimated Glomerular Filt Rate 102 ml/min (>60); GFR (African American) 123 ML/MIN (>60)
[2022-07-27 14:08] LABS: Albumin Level 3.4 g/dl (3.5-5.0); Albumin/Globulin Ratio 1.1 (1.1-1.8); Alkaline Phosphatase 91 U/L (38-126); Anion Gap 5.7 mEq/L (5-15); Bilirubin,Total 0.2 mg/dl (0.2-1.3); Calcium 8.9 mg/dl (8.4-10.2); Carbon Dioxide 30 mmol/L (22.0-30.0); Glucose 94 mg/dl (74-100); Magnesium 1.9 mg/dl (1.6-2.3); Total Protein,Serum 6.4 g/dl (6.3-8.2)
[2022-07-27 14:21] LABS: Basophils # 0.1 K/mm3 (0-0.2); Basophils % 0.6 % (0.1-2.0); Eosinophils # 0.1 K/mm3 (0.0-0.4); Hematocrit 40.6 % (37.0-47.0); Hemoglobin 12.2 g/dL (12.2-16.2); Lymphocytes # 1.3 K/mm3 (0.7-4.5); Lymphocytes % 9.8 % (10-50); Mean Corpuscular Hemoglobin 22.8 pg (27.0-31.2); Mean Corpuscular Volume 76.1 fl (81-99); Mean Platelet Volume 10.1 fl (7.4-10.4); Monocytes # 1.1 K/mm3 (0.1-1.0); Monocytes % 7.9 % (1.7-9.3); Neutrophils # 10.9 K/mm3 (1.8-7.8); Neutrophils % 80.7 % (37.0-80.0); Platelet Count 249 K/mm3 (142-424); Red Blood Count 5.33 M/mm3 (4.20-5.40); Red Cell Distribution Width 18.4 % (11.5-17.5); White Blood Count 13.5 K/mm3 (4.8-10.8)
[2022-07-27 14:28] LABS: Troponin I < 0.01 ng/ml (0.00-0.034)
[2022-07-27 14:30] VITALS: BP 129/87; PULSE 77; RESP 18; O2SAT 95
[2022-07-27 15:00] VITALS: BP 134/88; PULSE 77; RESP 19; O2SAT 98
[2022-07-27 15:21] LABS: Microscopic, Urine URINE MICROSCOPIC (MICROSCOPIC)
[2022-07-27 15:24] LABS: Appearance,Urine CLEAR (Clear); Bilirubin,Urine Negative (Negative); Blood, Urine Negative (Negative); Color,Urine STRAW (Yellow); Glucose,Urine (UA) 2+ (Negative); Ketones,Urine Negative (Negative); Leukocyte Esterase,Urine Negative (Negative); Nitrate,Urine Negative (Negative); Protein,Urine Negative (Negative); Specific Gravity, Urine <= 1.005 (1.005-1.030); Urobilinogen,Urine 0.2 EU/dl (0.2)
[2022-07-27 15:30] VITALS: BP 138/84; PULSE 63; RESP 17; O2SAT 95
[2022-07-27 15:49] LABS: Bacteria,Urine Trace /lpf
[2022-07-27 16:17] VITALS: BP 138/84; PULSE 63; RESP 17; TEMP 36.6; O2SAT 95
== END 2022-07-27 16:19 | disposition home or self-care (01) ==
PROVIDERS: Emergency Provider Student in an Organized Health Care Education/Training Program; PCP Nurse Practitioner Family
DX: N39.0 Urinary tract infection, site not specified (principal); R06.02 Shortness of breath; M79.605 Pain in left leg; M79.604 Pain in right leg; M54.40 Lumbago with sciatica, unspecified side; Z20.822 Contact with and (suspected) exposure to COVID-19; E87.1 Hypo-osmolality and hyponatremia; K59.00 Constipation, unspecified; R53.1 Weakness; R53.82 Chronic fatigue, unspecified; R09.89 Other specified symptoms and signs involving the circulatory and respiratory systems; I11.0 Hypertensive heart disease with heart failure; I50.9 Heart failure, unspecified; I25.10 Atherosclerotic heart disease of native coronary artery without angina pectoris; E78.5 Hyperlipidemia, unspecified; M26.609 Unspecified temporomandibular joint disorder, unspecified side; M79.7 Fibromyalgia; C34.90 Malignant neoplasm of unspecified part of unspecified bronchus or lung; G62.9 Polyneuropathy, unspecified; J84.10 Pulmonary fibrosis, unspecified; Z82.49 Family history of ischemic heart disease and other diseases of the circulatory system; J44.9 Chronic obstructive pulmonary disease, unspecified; F41.9 Anxiety disorder, unspecified; F17.210 Nicotine dependence, cigarettes, uncomplicated; Z79.51 Long term (current) use of inhaled steroids; Z79.82 Long term (current) use of aspirin; Z79.899 Other long term (current) drug therapy; Z88.6 Allergy status to analgesic agent; Z88.8 Allergy status to other drugs, medicaments and biological substances
CPT/HCPCS: 71045; 80053; 81001; 83735; 84484; 85025; 96360; 99284; C9803; U0003; U0005

== ENCOUNTER → 2022-08-09 13:48 | Outpatient (POV) | payer MEDICARE, SELFPAY ==
[2022-08-09 14:15] VITALS: BP 100/51; PULSE 80; RESP 18; O2SAT 96; BMI 35.9
--- NOTE | 2022-08-09 15:45 | EXP.PAIN.PRO ---
Procedure Date: 08/09/22 Time: 15:46 Anesthesiologist:: MELISSA Campoverde Complications:: None Pre-procedure Diagnosis:: Degenerative disc disease of lumbar spine with lumbar radiculopathy symptoms, sacroiliitis Post-procedure Diagnosis:: Same Indications for Procedure:: Patient is a pleasant 62-year-old female who presents today for intrathecal pain pump adjustment. Patient is coming treated for degenerative disc disease of lumbar spine with lumbar radiculopathy symptoms, sacroiliitis. Patient is Being managed with Dilaudid 1 mg/mL at a rate of 0.066 mg/day. Denies any side effects from this medication. She continues to have significant pain in her low back. Today, patient states that she has been having weakness on her legs. She is unsure if this is related to her low back. She presents today on a wheelchair. She was told by her PCP that some of her electrolytes are low. She rates her pain today as 7 out of 10. She is wanting an adjustment. Physical Exam: General: Alert and oriented x3, no acute distress, pleasant and cooperative Lungs: Respirations even and unlabored, symmetrical chest expansion Eyes: PERRL Musculoskeletal: Flexion and extension of lumbar [spine] somewhat guarded secondary to pain, [antalgic gait noted] Neurological: Speech clear, no gross sensory deficit Procedure Details:: Informed consent was obtained and the risk and benefits of the procedure were explained to the patient. Patient was taken to the procedure room where noninvasive monitoring was placed including noninvasive blood pressure cuff and pulse oximeter. Patient's pump was interrogated and was increased to Dilaudid 0.0792 mg/day. The patient tolerated the procedure well with no complications. Plan and Disposition:: We will follow-up with the patient during her pain pump refill. If she continues to have worsening symptoms on her bilateral lower extremities, I discussed with the patient that we can turn off her pump to see if this is related to her medication. We will see the patient back in the clinic at the next intrathecal refill. Patient has been instructed to contact the clinic with any concerns before the next appointment. Dr. Shields has reviewed this note and agrees with this plan of care. This note was dictated using voice recognition software and make contain errors or omissions. -- It is medically necessary for this patient to continue to have their intrathecal pump refilled at regular intervals. This patient had an intrathecal pain pump implanted after meeting criteria of chronic intractable pain for greater than 3 months and failing conservative treatments. Patient has committed and been compliant to the treatment plan and all planned follow up care. Since implantation of the intrathecal pain pump, the patient has had decreased pain and been more functional. Oral medications have been reduced including intake of oral opioids. Patient continues to do well with intrathecal therapy with decrease in pain symptoms and increase in functional status. Stopping intrathecal medications can lead to life threatening withdrawal, seizures, cardiac arrest, severe pain, and possible . Pumps that are not refilled at regular intervals can be damages and cause and need for replacement. We continually titrate dose and concentration to optimize pain relief and function. We are limited in concentration for certain drugs to safely deliver medications through the pump and stay within the recommendations from the [employer] Consensus [employer] Guidelines. Depending on dose and concentration these pumps may need to be refilled sooner than 3 months as we titrate.
== END | disposition home or self-care (01) ==
PROVIDERS: PCP Nurse Practitioner Family; Visit Provider Student in an Organized Health Care Education/Training Program
DX: M51.16 Intervertebral disc disorders with radiculopathy, lumbar region (principal); M46.1 Sacroiliitis, not elsewhere classified
CPT/HCPCS: 62368; 99213; G0463

== ENCOUNTER → 2022-09-08 14:36 | Outpatient (CLI) | payer MEDICARE, SELFPAY ==
[2022-09-08 14:44] LABS: Adenovirus,PCR Not Detected (NotDetected); Bordetella Pertussis Not Detected (NotDetected); Chlamydophila Pneumoniae, PCR Not Detected (NotDetected); Coronavirus 19, PCR Not Detected (NotDetected); Coronavirus 229E Not Detected (NotDetected); Coronavirus NL63 Not Detected (NotDetected); Coronavirus OC43 Not Detected (NotDetected); Coronovirus HKU1,PCR Not Detected (NotDetected); Human Metapneumovirus Not Detected (NotDetected); Influenza A, PCR Not Detected (NotDetected); Influenza AH1, 2009 Not Detected (NotDetected); Influenza AH1, PCR Not Detected (NotDetected); Influenza AH3,PCR Not Detected (NotDetected); Influenza B, PCR Not Detected (NotDetected); Mycoplasma Pneumoniae, PCR Not Detected (NotDetected); Parainfluenza 1, PCR Not Detected (NotDetected); Parainfluenza 2, PCR Not Detected (NotDetected); Parainfluenza 3, PCR Not Detected (NotDetected); Parainfluenza 4, PCR Not Detected (NotDetected); Respiratory Syncytial Virus Not Detected (NotDetected); Rhinovirus/Enterovirus Not Detected (NotDetected)
--- NOTE | 2022-09-08 14:52 | XR_ITS ---
FINAL REPORT CLINICAL HISTORY: dyspnea COMPARISON: 07/27/2022 FINDINGS: PA and lateral views of the chest were obtained. The cardiac and mediastinal silhouettes are within normal limits. There is emphysema. The lungs are otherwise clear. There is no pleural effusion or pneumothorax. No acute osseous abnormality is identified. IMPRESSION: No radiographic evidence of acute cardiac or pulmonary disease. Reviewed, Interpreted and Dictated by Tamie Thibodeaux MD Transcribed by Lacy Graham Authenticated and . [facility]
[2022-09-08 15:10] LABS: Basophils # 0.1 K/mm3 (0-0.2); Basophils % 0.5 % (0.1-2.0); Eosinophils # 0.1 K/mm3 (0.0-0.4); Eosinophils % 0.7 % (0.1-12.0); Hematocrit 41.8 % (37.0-47.0); Hemoglobin 12.4 g/dL (12.2-16.2); Lymphocytes # 1.4 K/mm3 (0.7-4.5); Lymphocytes % 9.2 % (10-50); Mean Corpuscular HGB Conc 29.7 g/dL (31.8-35.4); Mean Corpuscular Hemoglobin 21.7 pg (27.0-31.2); Mean Corpuscular Volume 73.2 fl (81-99); Mean Platelet Volume 8.6 fl (7.4-10.4); Monocytes # 0.9 K/mm3 (0.1-1.0); Monocytes % 5.8 % (1.7-9.3); Neutrophils # 12.9 K/mm3 (1.8-7.8); Neutrophils % 83.9 % (37.0-80.0); Platelet Count 300 K/mm3 (142-424); Red Blood Count 5.71 M/mm3 (4.20-5.40); White Blood Count 15.4 K/mm3 (4.8-10.8)
[2022-09-08 15:16] LABS: MANUAL DIFFERENTIAL MANUAL DIFFERENTIAL (MANUAL DIFF)
[2022-09-08 15:56] LABS: Blood Urea Nitrogen 10 mg/dl (7-17); Calcium 8.5 mg/dl (8.4-10.2); Carbon Dioxide 30 mmol/L (22.0-30.0); Chloride 93 mmol/L (98-107); Estimated Glomerular Filt Rate 102 ml/min (>60); GFR (African American) 123 ML/MIN (>60); Glucose 68 mg/dl (74-100); Magnesium 1.6 mg/dl (1.6-2.3); Sodium 130 mmol/L (136-145)
[2022-09-08 15:58] LABS: Anion Gap 11.6 mEq/L (5-15); Potassium 4.6 mmoL/L (3.5-5.1)
[2022-09-08 16:06] LABS: NT Pro Brain Natriuretic Pep. 123 pg/mL (0-125)
[2022-09-08 16:14] LABS: Free T4 (Free Thyroxine) 1.17 ng/dl (0.78-2.19)
[2022-09-08 16:27] LABS: Thyroid Stimulating Hormone 1.35 uIU/mL (0.465-4.68)
[2022-09-08 16:50] LABS: Hypochromasia 2+; Lymphocytes % 18 % (10-50); Microcytosis 1+; Monocytes % 3 % (2-9); Neutrophils % 79 % (42-76); Platelet Estimate Normal; Total Cells Counted 100
[2022-09-08 16:57] LABS: Iron 52 ug/dL (37-170)
[2022-09-08 17:07] LABS: Total Iron Binding Capacity 454 ug/dL (265-497)
== END ==
PROVIDERS: Physician Assistant; PCP Nurse Practitioner Family; Visit Provider Internal Medicine
DX: E78.5 Hyperlipidemia, unspecified (principal); E87.1 Hypo-osmolality and hyponatremia; I10 Essential (primary) hypertension; I50.30 Unspecified diastolic (congestive) heart failure; J44.9 Chronic obstructive pulmonary disease, unspecified; R06.09 Other forms of dyspnea; G47.33 Obstructive sleep apnea (adult) (pediatric); I67.2 Cerebral atherosclerosis; R71.8 Other abnormality of red blood cells
CPT/HCPCS: 36415; 71046; 80048; 83540; 83550; 83735; 83880; 84439; 84443; 85007; 85025; 87581; 87632; 87798; C9803; U0003; U0005

== ENCOUNTER → 2022-09-17 14:24 | Outpatient (CLI) | payer MEDICARE, SELFPAY ==
--- NOTE | 2022-09-17 14:35 | XR_ITS ---
FINAL REPORT CLINICAL HISTORY: LOW BACK PAIN FINDINGS: LUMBAR SPINE Five views demonstrate no acute fracture. There is advanced degenerative disc disease in the lower lumbar spine. There is minimal retrolisthesis of L2 on 3. A pain pump is seen entering in the spinal canal at L4-5 with the tip at the T12 level. IMPRESSION: Advanced degenerative disc disease without fracture. Reviewed, Interpreted and Dictated by Corey Guerrero MD Transcribed by Lacy Graham Authenticated and [facility]
--- NOTE | 2022-09-17 14:35 | XR_ITS ---
FINAL REPORT CLINICAL HISTORY: PAIN OF RT LOWER EXT FINDINGS: Right tibia fibula Two views were obtained. There is no acute fracture or dislocation. There is moderate degenerative change at the knee joint. No soft tissue abnormality is identified. IMPRESSION: No acute process. Reviewed, Interpreted and Dictated by Corey Guerrero MD Transcribed by Lacy Graham Authenticated and [facility]
== END ==
PROVIDERS: PCP Nurse Practitioner Family; Visit Provider Nurse Practitioner Family
DX: M79.604 Pain in right leg (principal); M54.41 Lumbago with sciatica, right side
CPT/HCPCS: 72110; 73590

== ENCOUNTER 2022-09-21 11:35 | Day surgery (SDC) | payer MEDICARE, SELFPAY ==
[2022-09-21 11:41] VITALS: BP 148/43; PULSE 87; RESP 20; O2SAT 95
[2022-09-21 11:50] VITALS: BP 159/64; PULSE 82; RESP 24; TEMP 36.9; O2SAT 95; BMI 35.4
--- NOTE | 2022-09-21 12:05 | EXP.PAIN.PRO ---
Procedure Date: 09/21/22 Time: 11:55 Anesthesiologist:: Roberto Miller CRNA Complications:: None Pre-procedure Diagnosis:: Degenerative disc disease lumbar spine multilevels. Lumbar radiculopathy. Lumbar postlaminectomy syndrome. Bilateral sacroiliitis Post-procedure Diagnosis:: Same. Indications for Procedure:: This patient is a very pleasant 62-year-old female that comes our clinic today for intrathecal pain pump interrogation and refill. Patient currently being managed with Dilaudid 1 mg/mL at a rate of 0.0792 mg/day. Patient complaining of some intense low lumbar, bilateral posterior hip pain. Upon examination she has extreme point tenderness over the bilateral sacroiliac joints. Patient states she has never had sacroiliac joint injections of cortisone. I recommend bilateral sacroiliac joint injections. We will get her scheduled soon as possible. I discussed in detail with the patient regarding sacroiliitis. Procedure Details:: Details of the procedure were explained to the patient. Patient taken the procedure room placed in sitting position. The area over the pump was cleansed using chlorhexidine as a cleansing solution. The pump was accessed with ease using an inch and a half 22-gauge needle. 11 mL of solution was withdrawn from the pump and discarded appropriately. The pump was then filled with 20 cc of hydromorphone 1 mg/mL. The pump was then interrogated. The rate will continue at 0.0792 mg/day. Plan and Disposition:: Patient will return to the clinic next week for bilateral sacroiliac joint injections.
[2022-09-21 12:11] VITALS: BP 119/40; PULSE 73; RESP 18; O2SAT 95
== END 2022-09-21 12:11 | disposition home or self-care (01) ==
PROVIDERS: PCP Nurse Practitioner Family; Visit Provider Nurse Anesthetist, Certified Registered
DX: Z45.1 Encounter for adjustment and management of infusion pump (principal); M51.16 Intervertebral disc disorders with radiculopathy, lumbar region; M96.1 Postlaminectomy syndrome, not elsewhere classified; M46.1 Sacroiliitis, not elsewhere classified
CPT/HCPCS: 95991

== ENCOUNTER 2022-09-28 11:11 | Day surgery (SDC) | payer MEDICARE, SELFPAY ==
[2022-09-28 11:31] VITALS: BP 138/85; PULSE 79; RESP 18; TEMP 36.4; O2SAT 95; BMI 35.4
[2022-09-28 11:47] VITALS: BP 129/68; PULSE 82; RESP 20; O2SAT 97
[2022-09-28 11:49] VITALS: BP 129/68; PULSE 82; RESP 20; O2SAT 98
[2022-09-28 11:55] VITALS: BP 119/52; PULSE 76; RESP 18; O2SAT 95
--- NOTE | 2022-09-28 12:22 | P.PCN_ITS ---
Procedure Date: 09/28/22 Time: 12:00 Anesthesiologist:: Roberto Miller CRNA Complications:: None Pre-procedure Diagnosis:: Bilateral sacroiliitis. Degenerative disease of her spine with office. Lumbar radiculopathy Post-procedure Diagnosis:: Same. Indications for Procedure:: This patient is a very pleasant 62-year-old female that comes our clinic today for bilateral sacroiliac joint injections. We currently manage the patient with intrathecal Dilaudid 1 mg/mL at a rate of 0.0792 mg/day. Patient states the pump is doing very well at this time. However, she has extreme point tenderness over the bilateral sacroiliac joints. She rates her pain 10/10. Procedure Details:: Procedure: Bilateral sacroiliac joint injections under fluoroscopy Informed consent was obtained and the risks and benefits of the procedure were explained to the patient.~ The patient was taken to the procedure room and noninvasive monitors were placed including a noninvasive blood pressure cuff and pulse oximeter.~ The patient was placed prone on the procedure table. Both hips were cleansed using Betadine as a cleansing solution. C-arm fluoroscopy was used to view the right sacroiliac joint.~ The skin and subcutaneous tissues were anesthetized using lidocaine 1.5% and a 25-gauge needle.~ After this, a 22-gauge spinal needle was inserted under fluoroscopic guidance into the inferior aspect of the right sacroiliac joint.~ Omnipaque dye was injected and good spread was seen throughout the joint.~ After this, approximately 5 mL of bupivacaine, 0.25% and Depo-Medrol, 40 mg was incrementally injected into the right sacroiliac joint. We then moved to the left sacroiliac joint.~ The skin and subcutaneous tissues were anesthetized using lidocaine 1.5% and a 25-gauge needle.~ After this, a 22- gauge spinal needle was inserted under fluoroscopic guidance into the inferior aspect of the left sacroiliac joint.~ Omnipaque dye was injected and good spread was seen throughout the joint. After this, approximately 5 mL of bupivacaine, 0.25% and Depo-Medrol, 40 mg was incrementally injected into the left sacroiliac joint.~ The patient tolerated the procedure well with no complications. Plan and Disposition:: Patient was discharged without incident.
== END 2022-09-28 11:55 | disposition home or self-care (01) ==
LOC: SC.PAINP 11:12
PROVIDERS: PCP Nurse Practitioner Family; Visit Provider Nurse Anesthetist, Certified Registered
DX: M46.1 Sacroiliitis, not elsewhere classified (principal); M54.16 Radiculopathy, lumbar region
CPT/HCPCS: 27096; G0260; J1030

== ENCOUNTER → 2022-10-11 13:12 | Outpatient (POV) | payer MEDICARE, SELFPAY ==
--- NOTE | 2022-10-11 13:41 | EXP.PAIN.PRO ---
Procedure Date: 10/11/22 Time: 13:42 Anesthesiologist:: Georgiana Zelaya APRN Complications:: None Pre-procedure Diagnosis:: Degenerative disc disease of lumbar spine with lumbar radiculopathy symptoms, bilateral sacroiliitis Post-procedure Diagnosis:: Same Indications for Procedure:: Patient is a pleasant 62-year-old female who presents today for intrathecal pain pump reprogramming adjustment. The patient is being treated for degenerative disc disease of lumbar spine with lumbar radiculopathy symptoms, bilateral sacroiliitis. Patient did just recently have bilateral SI injections on 09/28/2022. Patient states that she had about 50% improvement following these injections however only lasting 2 days. Patient is currently being managed with Dilaudid 1 mg/mL with a daily dose of 0.0792 mg/day. Patient denies any side effects from this medication. Patient rates pain a 10 out of 10. Patient denies any new trauma or injury. Patient denies any change location or type of pain she experiences. Patient does state that she is back to her baseline and continues to experience significant pain in her low back with radiating symptoms into her bilateral lower extremities. Patient does state that her right side does seem to give out more frequently in comparison to the left. Patient is also managed with pregabalin 150 mg twice a day and alprazolam 0.5 mg twice a day from her primary care doctor. Patient denies any side effects from this medication. Drug screen is appropriate. [facility] [phone] has been reviewed and is appropriate. Physical exam General: Alert and oriented x3, no acute distress, pleasant and cooperative Lungs: Respirations even and unlabored, symmetrical chest expansion Eyes: PERRL Musculoskeletal: Flexion and extension of lumbar [spine] somewhat guarded secondary to pain, [antalgic gait noted] Neurological: Speech clear, no gross sensory deficit Procedure Details:: Informed consent was obtained and the risk and benefits of the procedure were explained to the patient. Patient was taken to the procedure room where noninvasive monitoring was placed including noninvasive blood pressure cuff and pulse oximeter. Patient's pump was interrogated and was reprogrammed to Dilaudid 0.0871 mg/day. The patient tolerated the procedure well with no complications. Plan and Disposition:: We will see the patient back in the clinic at the next intrathecal refill. I have discussed with the patient that she may be a beneficial candidate of a SI stabilization procedure in the future. Risk and benefits and educational material were reviewed at today's visit. Patient has been instructed to contact the clinic with any concerns before the next appointment. Dr. Shields has reviewed this note and agrees with this plan of care. This note was dictated using voice recognition software and make contain errors or omissions. -- It Is medically necessary for this patient to continue to have their intrathecal pump refilled at regular intervals. This patient had an intrathecal pain pump implanted after meeting criteria of chronic intractable pain for greater than 3 months and failing conservative treatments. Patient has committed and been compliant to the treatment plan and all planned follow up care. Since implantation of the intrathecal pain pump, the patient has had decreased pain and been more functional. Oral medications have been reduced including intake of oral opioids. Patient continues to do well with intrathecal therapy with decrease in pain symptoms and increase in functional status. Stopping intrathecal medications can lead to life threatening withdrawal, seizures, cardiac arrest, severe pain, and possible . Pumps that are not refilled at regular intervals can be damages and cause and need for replacement. We continually titrate dose and concentration to optimize pain relief and function. We are limited in concentration for certain drugs to safely deliver me
[2022-10-11 14:23] VITALS: BP 110/34; PULSE 81; RESP 20; O2SAT 96; BMI 38.6
== END | disposition home or self-care (01) ==
PROVIDERS: PCP Nurse Practitioner Family; Visit Provider Nurse Practitioner Family
DX: Z45.1 Encounter for adjustment and management of infusion pump (principal); M51.16 Intervertebral disc disorders with radiculopathy, lumbar region; M46.1 Sacroiliitis, not elsewhere classified
CPT/HCPCS: 62368; 99213; G0463

== ENCOUNTER → 2022-10-26 08:31 | Outpatient (CLI) | payer MEDICARE, SELFPAY ==
--- NOTE | 2022-10-26 08:37 | CT_ITS ---
FINAL REPORT TECHNIQUE: Postcontrast axial images through the abdomen and pelvis were performed. This study was performed with techniques to keep radiation doses as low as reasonably achievable, (ALARA). Individualized dose reduction techniques using automated exposure control or adjustment of mA and/or kV according to the patient's size were employed. CLINICAL HISTORY: LT SIDED ABD PAIN,BLOOD IN STOOL original scan the iv extravasated, new iv was started and scan was completed COMPARISON: March 2021 FINDINGS: Abdomen: There is moderate scarring/fibrosis in the lung bases with areas of peripheral honeycombing, similar to prior. The liver is normal in size and attenuation. The gallbladder is present. The spleen is unremarkable. The adrenals are normal. The pancreas is unremarkable. A 14 mm left renal cyst is somewhat larger as compared to prior. The aorta is normal in caliber. No free fluid or adenopathy is identified. No findings for mechanical bowel obstruction are identified. There is a small fat containing umbilical hernia. There is diverticulosis of the sigmoid colon. Pelvis: The appendix is not identified and may be surgically absent. The urinary bladder is unremarkable. No free fluid, free air, abscess or adenopathy is identified. There has been hysterectomy. An intrathecal catheter is noted. IMPRESSION: No acute process identified. Reviewed, Interpreted and Dictated by Brendan Multani III, MD Transcribed by Bubba Desai Authenticated and [facility]
== END ==
PROVIDERS: PCP Nurse Practitioner Family; Visit Provider Nurse Practitioner Family
DX: R10.9 Unspecified abdominal pain (principal)
CPT/HCPCS: 74177; Q9967

== ENCOUNTER 2022-10-26 09:31 | Observation (INO) | payer MEDICARE, SELFPAY ==
[2022-10-26] VITALS (17 sets, daily range): BP systolic 81–150; BP diastolic 39–87; PULSE 68–89; RESP 18–24; TEMP 36.6–36.7; O2SAT 84–98; BMI 36.8; BMI 35.0
--- NOTE | 2022-10-26 09:34 | ECG_ITS ---
APPROVED REPORT Exam: Resting ECG HR:78 bpm ECG Measurements Heart Rate 78 AXES MD 130 P 86 QRSd 98 QRS 24 QT 352 T 61 QTc 385 Conclusion SINUS RHYTHM WITH OCCASIONAL VENTRICULAR PREMATURE COMPLEXES POSSIBLE LEFT ATRIAL ENLARGEMENT [-0.1mV P-WAVE IN V1/V2] INCOMPLETE RIGHT BUNDLE BRANCH BLOCK [90+ ms QRS DURATION, TERMINAL R IN V1/V2, 40+ ms S IN I/aVL/V4/V5/V6] BORDERLINE ECG UNCONFIRMED REPORT Electronically signed by : Jack Mathis MD 10/26/2022 19:16:28
--- NOTE | 2022-10-26 09:35 | PC.NURSE ---
[address] OF ABDOMEN, PT C/O PAIN TO RIGHT AC. NOTED AREA OF SWELLING AND INFILTRATION. PT REPORTS SITE PAINFUL AFTER CONTRAST
--- NOTE | 2022-10-26 09:40 | HMH.EDGENADL ---
Discharge Plan Disposition Patient Disposition: Admitted as Observation Condition: Fair Chief Complaint: Shortness of Breath/Dyspnea Prescriptions Prescriptions: No Action pramipexole 0.25 mg tablet 0.25 mg PO HS atorvastatin 40 mg tablet 40 mg PO DAILY Qty: 30 5RF losartan 50 mg tablet 50 mg PO DAILY Qty: 30 5RF cyanocobalamin (vitamin B-12) 1,000 mcg/mL solution 1,000 mcg IM WEEKLY Label Comments: INJECT 1 ML INTO A MUSCLE 1 TIME EACH WEEK aspirin [Adult Low Dose Aspirin] 81 mg tablet,delayed release (DR/EC) 81 mg PO DAILY levothyroxine 50 mcg capsule 50 mcg PO DAILY alprazolam 0.5 mg tablet 0.5 mg PO BID PRN (Reason: Anxiety) escitalopram oxalate 20 mg tablet 20 mg PO DAILY empagliflozin 10 mg tablet 10 mg PO DAILY Qty: 90 3RF Rx Instructions: diabetes ipratropium-albuterol 0.5 mg-3 mg(2.5 mg base)/3 mL solution for nebulization 3 ml IH Q6H PRN (Reason: shortness of breath or wheezing) Qty: 90 6RF furosemide 20 mg tablet 20 mg PO DAILY Qty: 33 5RF Rx Instructions: take 40 mg for 3 days then back to 20 mg daily albuterol sulfate 90 mcg/actuation HFA aerosol inhaler 1 inh IH Q6H PRN (Reason: shortness of breath or wheezing) 90 Days Qty: 8.5 3RF diltiazem HCl 180 mg capsule,extended release 24hr 360 mg PO DAILY Qty: 60 3RF famotidine 20 mg tablet 20 mg PO DAILY Qty: 90 2RF Spiriva Respimat 2.5 mcg/actuation mist 2 inh inhalation DAILY Rx Instructions: COPD fluticasone furoate-vilanterol [Breo Ellipta] 200-25 mcg/dose blister with device 1 inh inhalation DAILY pregabalin 150 mg capsule 150 mg PO BID colestipol 1 GM tablet 1 gm PO BID azithromycin 250 mg tablet 250 mg PO QMWF omeprazole 40 mg capsule,delayed release(DR/EC) 40 mg PO DAILY spironolactone 25 mg tablet 25 mg PO BID Rx Instructions: take 50 mg BID for 3 days then 25 mg BID after potassium chloride 20 mEq tablet,ER particles/crystals 20 meq PO DAILY Label Comments: TAKE 3 TABLETS DAILY AND 2 AT BEDTIME. Referrals Follow up/Referrals: Telma Naylor APRN [Primary Care Provider] - See instructions Clinical Impressions Clinical Impression: Acute hyperkalemia, Pneumonia Discharge ED Provider: Salvador Lares General Adult HPI General Chief complaint: Shortness of Breath/Dyspnea Stated complaint: SOA Time Seen by Provider: 10/26/22 09:40 History of Present Illness HPI narrative: Patient states that she has been sick for 3 months. Primary complaint is weakness and dizzy headedness . States she has also had generalized abdominal pain and change in bowel habits, sometimes soft stool, sometimes diarrhea, passed blood a couple of months ago. Also complains of a cough producing yellow sputum and increased shortness of breath. She has COPD and is on oxygen, 2L [place], at all times. She notes dyspnea on exertion. Chest heaviness. She does continue to smoke. She states her primary care provider treated her for bronchitis with antibiotics and steroids. Most recently she saw her 2 weeks ago and was treated for diverticulitis with antibiotics which she has now completed. She had a CT scan of her abdomen and pelvis today and then came to the emergency department afterwards. Related Data Home Medications Medication Instructions Recorded Confirmed levothyroxine 50 mcg capsule 50 mcg PO DAILY hypothyroid 01/25/19 10/26/22 pramipexole 0.25 mg tablet 0.25 mg PO HS COPD 04/02/20 10/26/22 pregabalin 150 mg capsule 150 mg PO BID Pain 01/09/21 10/26/22 alprazolam 0.5 mg tablet 0.5 mg PO BID PRN Anxiety 04/23/21 10/26/22 escitalopram oxalate 20 mg tablet 20 mg PO DAILY Depression 11/11/21 10/26/22 colestipol 1 gram tablet 1 gm PO BID DIARRHEA 12/10/21 10/26/22 cyanocobalamin (vitamin B-12) 1,000 mcg IM WEEKLY Supplement 01/27/22 10/26/22 1,000 mcg/mL injection solution omeprazole 40
--- NOTE | 2022-10-26 09:41 | PC.NURSE ---
PT 84% ON ROOM AIR, PLACED ON 2L/NC SHE WEARS AT HOME
--- NOTE | 2022-10-26 09:42 | XR_ITS ---
FINAL REPORT CLINICAL HISTORY: SHORTNESS OF BREATH COMPARISON: 09/08/2022 FINDINGS: CHEST 1 VIEW FRONTAL The heart is normal in size. The mediastinum is unremarkable. There is worsening bibasilar atelectasis or pneumonia. There is no pneumothorax. IMPRESSION: Worsening bibasilar atelectasis or pneumonia. Reviewed, Interpreted and Dictated by Brendan Multani III, MD Transcribed by Helga Diaz Authenticated and [facility]
--- NOTE | 2022-10-26 09:46 | PC.NURSE ---
KT RODRIGUEZ at
[2022-10-26 09:57] LABS: Basophils # 0.1 K/mm3 (0-0.2); Basophils % 0.7 % (0.1-2.0); Eosinophils # 0.3 K/mm3 (0.0-0.4); Eosinophils % 2.3 % (0.1-12.0); Hemoglobin 12.6 g/dL (12.2-16.2); Lymphocytes # 1.4 K/mm3 (0.7-4.5); Lymphocytes % 12.6 % (10-50); Mean Corpuscular HGB Conc 30.7 g/dL (31.8-35.4); Mean Corpuscular Hemoglobin 21.9 pg (27.0-31.2); Mean Corpuscular Volume 71.3 fl (81-99); Mean Platelet Volume 7.7 fl (7.4-10.4); Monocytes # 0.8 K/mm3 (0.1-1.0); Monocytes % 6.9 % (1.7-9.3); Neutrophils # 8.5 K/mm3 (1.8-7.8); Neutrophils % 77.5 % (37.0-80.0); Platelet Count 266 K/mm3 (142-424); Red Blood Count 5.75 M/mm3 (4.20-5.40); Red Cell Distribution Width 19.9 % (11.5-17.5)
[2022-10-26 09:58] LABS: Chloride 94 mmol/L (98-107); Potassium 5.8 mmoL/L (3.5-5.1); Sodium 131 mmol/L (136-145)
[2022-10-26 10:00] LABS: Alanine Aminotransferase 20 U/L (12-78); Aspartate Amino Transferase 23 U/L (14-36); Blood Urea Nitrogen 7 mg/dl (7-17); Creatinine Clearance Estimated 112 mL/min (50-200); Estimated Glomerular Filt Rate 102 ml/min (>60); GFR (African American) 123 ML/MIN (>60)
--- NOTE | 2022-10-26 10:00 | PC.NURSE ---
PT PROVIDED A DRINK, CALL LIGHT WITHIN REACH
[2022-10-26 10:01] LABS: Albumin Level 3.5 g/dl (3.5-5.0); Albumin/Globulin Ratio 1.1 (1.1-1.8); Alkaline Phosphatase 88 U/L (38-126); Anion Gap 7.8 mEq/L (5-15); Bilirubin,Total 0.5 mg/dl (0.2-1.3); Calcium 8.4 mg/dl (8.4-10.2); Carbon Dioxide 35 mmol/L (22.0-30.0); Globulin 3.1 g/dL (1.3-3.2); Glucose 94 mg/dl (74-100); Total Protein,Serum 6.6 g/dl (6.3-8.2)
[2022-10-26 10:14] LABS: Troponin I < 0.01 ng/ml (0.00-0.034)
--- NOTE | 2022-10-26 10:16 | PC.NURSE ---
1014 XR AT BEDSIDE
--- NOTE | 2022-10-26 10:36 | PC.NURSE ---
DR ANAYA AT BEDSIDE FOR REEVALUATION
--- NOTE | 2022-10-26 10:47 | PC.NURSE ---
notified ER MD pt ct from earlier this date as an outpt is read in the system.
--- NOTE | 2022-10-26 10:57 | PC.NURSE ---
SO at BS
[2022-10-26 11:06] LABS: Coronavirus 19, PCR Not Detected (NotDetected); Influenza A, PCR Not Detected (NotDetected); Influenza B, PCR Not Detected (NotDetected)
[2022-10-26 11:14] LABS: NT Pro Brain Natriuretic Pep. 193 pg/mL (0-125)
[2022-10-26 11:26] LABS: Lactic Acid 1.2 mmol/L (0.7-2.1)
--- NOTE | 2022-10-26 11:57 | PC.NURSE ---
1150 PT GIVEN ADDITIONAL AMP OF D50 PER VERBAL ORDER OF DR ANAYA. PT GLUCOSE 47
--- NOTE | 2022-10-26 11:57 | PC.NURSE ---
1155 PT C/O REDNESS AND SORES TO LEFT BREAST THAT SHE HAS HAD FOR A LONG TIME MD AWARE, NO NEW ORDERS
--- NOTE | 2022-10-26 11:59 | PC.NURSE ---
Finger stick obtained, reading of 47 CINDY Patel informed
[2022-10-26 12:50] LABS: POC Glucose,Bedside 81 (70-110)
--- NOTE | 2022-10-26 12:59 | PC.NURSE ---
DR ANAYA SPEAKING WITH DR COBB
--- NOTE | 2022-10-26 13:02 | PC.NURSE ---
CARE MANAGEMENT NOTIFIED OF ADMISSION
--- NOTE | 2022-10-26 13:36 | PC.NURSE ---
NURSE AND CHARGE NURSE UNABLE TO TAKE REPORT AT THIS TIME. WILL CALL BACK
--- NOTE | 2022-10-26 13:48 | PC.NURSE ---
REPORT GIVEN TO CINDY AVELAR
[2022-10-26 13:51] LABS: Troponin I < 0.01 ng/ml (0.00-0.034)
--- NOTE | 2022-10-26 14:01 | PC.NURSE ---
Pt arrived to the floor at this time
--- NOTE | 2022-10-26 14:16 | EXP.HP ---
History of Present Illness *Admission Date: 10/26/22 *Reason for visit:: Cough and weakness *History of present illness: Ms. Woods is a 62-year-old female with chronic hypoxemic respiratory failure, smoking, obesity, diabetes, hypertension, anxiety who presents with feeling poorly for the past 3 months. Presented to the ER because of feeling sick for 3 months. Her primary complaint was weakness and dizziness. Is also had some generalized abdominal pain and change in bowel habits. Stools wax and wane between loose and hard. Occasional bloody stools but nothing recent. Cough that has been mildly productive with yellow sputum for the past several days to week. She is chronically on 2 L nasal cannula oxygen for COPD. Continues to smoke daily. Reports dyspnea with exertion, chest discomfort. No fever, syncope, nausea or vomiting. Was recently treated by her primary care provider for bronchitis with antibiotics and steroids, recently saw her 2 weeks ago for diverticulitis. Has just not felt well overall. CT of her abdomen and pelvis today to evaluate for diverticulitis but came to the ER after imaging due to feeling so poorly. On initial work-up, concern for pneumonia on chest imaging. Oxygen saturation low 90s on baseline 2 L. Noted to have elevated potassium and some hypotension. Was treated with an amp of D50 and insulin in the ER for her hyperkalemia but became more symptomatic. ER consulted medicine for admission for further management of her current condition. [facility] Disclaimer: The information contained in this section may have been updated after the patient was seen, as this information can be updated by other users. Medical History (Updated 10/26/22 @ 17:41 by Yosvany Gant MD) Abnormal cardiovascular stress test Allergic rhinitis Allergic rhinitis, unspecified Allergic rhinitis, unspecified Anxiety Asthma Atypical angina Bilateral leg pain Bilateral leg pain Bilateral low back pain with sciatica CAD (coronary artery disease) Chronic bronchitis Chronic bronchitis COPD (chronic obstructive pulmonary disease) COPD (chronic obstructive pulmonary disease) Cough Dyspnea Dyspnea on exertion Edema Elevated left ventricular end-diastolic pressure (LVEDP) Encounter for screening for malignant neoplasm of lung in current smoker with 30 pack year history or greater Encounter for screening for malignant neoplasm of lung in current smoker with 30 pack year history or greater Eosinophilia Eosinophilia Fatigue Fibromyalgia GERD (gastroesophageal reflux disease) Hyperlipidemia Hypertension Hypothyroidism Leg pain Leg pain, bilateral Lung nodule Lung nodule Neuropathy Obesity (BMI 30-39.9) Pulmonary fibrosis Pulmonary fibrosis, unspecified TMJ dysfunction Tobacco abuse Tobacco abuse counseling Tobacco abuse counseling Tobacco abuse counseling Tobacco abuse disorder Tobacco dependence syndrome Unspecified asthma, uncomplicated Surgical History History of arthroscopy of knee History of bladder suspension procedure History of cardiac cath History of section History of colonoscopy History of hemorrhoidectomy History of hysterectomy History of sinus surgery Family History Hypertension Mother Social History Smoking Status: Current every day smoker tobacco type: cigarettes packs per day: 1 years smoked: 40 second hand exposure: Yes alcohol intake: never substance use type: denies use current occupational status: disabled Travel in the last 8 weeks: None household members: spouse housing: house current occupational exposures/hazards: No caffeine: Yes bobby/sabianist: Gnosticist Review of Systems Review of Systems Review of systems (narrative): 14 point review of systems performed, pertinent positives and negatives as per HPI
--- NOTE | 2022-10-26 15:36 | HMH.PHAINT1 ---
Pharmacy Intervention Comments: Medication reconciliation completed using external fill history
[2022-10-26 16:21] LABS: Troponin I < 0.01 ng/ml (0.00-0.034)
[2022-10-26 18:27] LABS: Chloride 98 mmol/L (98-107); Potassium 4.7 mmoL/L (3.5-5.1); Sodium 136 mmol/L (136-145)
[2022-10-26 18:30] LABS: Anion Gap 7.7 mEq/L (5-15); Blood Urea Nitrogen 6 mg/dl (7-17); Calcium 8.3 mg/dl (8.4-10.2); Carbon Dioxide 35 mmol/L (22.0-30.0); Creatinine Clearance Estimated 106 mL/min (50-200); Estimated Glomerular Filt Rate 102 ml/min (>60); GFR (African American) 123 ML/MIN (>60); Glucose 129 mg/dl (74-100)
[2022-10-27] VITALS (8 sets, daily range): BP systolic 105–133; BP diastolic 43–76; PULSE 70–94; RESP 18; TEMP 36.6–37.1; O2SAT 92–93; BMI 35.2
[2022-10-27 06:46] LABS: Basophils % 0.4 % (0.1-2.0); Eosinophils # 0.2 K/mm3 (0.0-0.4); Hematocrit 41.5 % (37.0-47.0); Hemoglobin 12.2 g/dL (12.2-16.2); Lymphocytes # 1.6 K/mm3 (0.7-4.5); Lymphocytes % 17.7 % (10-50); Mean Corpuscular HGB Conc 29.5 g/dL (31.8-35.4); Mean Corpuscular Hemoglobin 21.6 pg (27.0-31.2); Mean Corpuscular Volume 73.4 fl (81-99); Mean Platelet Volume 9.4 fl (7.4-10.4); Monocytes # 0.7 K/mm3 (0.1-1.0); Monocytes % 7.4 % (1.7-9.3); Neutrophils # 6.6 K/mm3 (1.8-7.8); Neutrophils % 72.5 % (37.0-80.0); Platelet Count 268 K/mm3 (142-424); Red Blood Count 5.65 M/mm3 (4.20-5.40); Red Cell Distribution Width 19.7 % (11.5-17.5); White Blood Count 9.1 K/mm3 (4.8-10.8)
--- NOTE | 2022-10-27 06:47 | PC.NURSE ---
Pt c/o bloating/gas at beginning of shift. Simethicone administered, pt stated favorable results. Ex wheezing heard t/o lung field. Call light within reach.
[2022-10-27 06:55] LABS: Alanine Aminotransferase 15 U/L (12-78); Albumin Level 3.2 g/dl (3.5-5.0); Albumin/Globulin Ratio 1.2 (1.1-1.8); Alkaline Phosphatase 74 U/L (38-126); Aspartate Amino Transferase 16 U/L (14-36); Bilirubin,Total 0.4 mg/dl (0.2-1.3); Blood Urea Nitrogen 5 mg/dl (7-17); Calcium 8.5 mg/dl (8.4-10.2); Carbon Dioxide 37 mmol/L (22.0-30.0); Chloride 98 mmol/L (98-107); Creatinine Clearance Estimated 106 mL/min (50-200); Estimated Glomerular Filt Rate 102 ml/min (>60); GFR (African American) 123 ML/MIN (>60); Globulin 2.6 g/dL (1.3-3.2); Glucose 92 mg/dl (74-100); Magnesium 2.2 mg/dl (1.6-2.3); Potassium 4.4 mmoL/L (3.5-5.1); Total Protein,Serum 5.8 g/dl (6.3-8.2)
[2022-10-27 07:01] LABS: Anion Gap 3.4 mEq/L (5-15); Sodium 134 mmol/L (136-145)
--- NOTE | 2022-10-27 07:19 | EXP.DC.SUM ---
General Admission date:: 10/26/22 Discharge date: 10/27/22 HPI HPI HPI: Mrs. Shaw is a 62-year-old female with chronic hypoxemic respiratory failure, smoking, obesity, diabetes, hypertension, anxiety who presents with feeling poorly for the past 3 months. Presented to the ER because of feeling sick for 3 months. Her primary complaint was weakness and dizziness. Is also had some generalized abdominal pain and change in bowel habits. Stools wax and wane between loose and hard. Occasional bloody stools but nothing recent. Cough that has been mildly productive with yellow sputum for the past several days to week. She is chronically on 2 L nasal cannula oxygen for COPD. Continues to smoke daily. Reports dyspnea with exertion, chest discomfort. No fever, syncope, nausea or vomiting. Was recently treated by her primary care provider for bronchitis with antibiotics and steroids, recently saw her 2 weeks ago for diverticulitis. Has just not felt well overall. CT of her abdomen and pelvis today to evaluate for diverticulitis but came to the ER after imaging due to feeling so poorly. On initial work-up, concern for pneumonia on chest imaging. Oxygen saturation low 90s on baseline 2 L. Noted to have elevated potassium and some hypotension. Was treated with an amp of D50 and insulin in the ER for her hyperkalemia but became more symptomatic. ER consulted medicine for admission for further management of her current condition. Hospital Course Hospital Course Hospital Course: 62-year-old female with multiple comorbidities admitted for acute hyperkalemia, hyponatremia, and suspected pneumonia.? Medicine consulted for admission by the ER.? Decision made to admit patient overnight for observation and antibiotic treatment.? Problems addressed as follows: Pneumonia -Bibasilar on imaging.? Stable oxygen requirement.? Initiated on IV ceftriaxone 1 g twice daily and IV azithromycin 500 mg daily for community-acquired pneumonia.? Responded well to treatment during hospitalization. Stable oxygen requirement 2 L. Will complete 7-day course of cephalosporin and 3-day course of azithromycin for community-acquired pneumonia. Recommend following up in the next week with her PCP. Continue breathing treatments at home as needed every 4-6 hours. Resume Spiriva. Sputum culture still pending at time of discharge. Blood cultures negative. Hyperkalemia Hyponatremia -Suspect secondary to diuresis/diuretic use and supplementation.? On potassium supplementation 100 mEq daily along with spironolactone and Lasix. We will discontinue potassium supplementation. Transition to Lasix and spironolactone once daily. Potassium normalized by morning to 4.4. Recommend repeat labs in a week to monitor for stability of electrolytes and kidney function. Continue treatment for chronic conditions as follows: Hypertension: Continue home diltiazem and losartan Hyperlipidemia: Continue home Lipitor Anxiety: Home Lexapro and Xanax GERD: Continue home omeprazole Hypothyroid: Continue home levothyroxine Restless leg: Continue home pramipexole and pregabalin Stable for discharge home. Close follow-up with PCP. Exam Data for Last 24 hours Vital signs and Labs for Last 24 Hours: Temp Pulse Resp BP Pulse Ox FiO2 98.7 F 80 18 119/53 L 93 L 28 10/27/22 04:00 10/27/22 05:58 10/27/22 04:00 10/27/22 04:00 10/27/22 05:58 10/26/22 23:57 Laboratory Results - last 24 hr 10/26/22 09:43: WBC 11.0 H, RBC 5.75 H, Hgb 12.6, Hct 41.0, MCV 71.3 L, MCH 21.9 L, MCHC 30.7 L, RDW 19.9 H, Plt Count 266, MPV 7.7, Neut % (Auto) 77.5, Lymph % (Auto) 12.6, Darke % (Auto) 6.9, Eos % (Auto) 2.3, Baso % (Auto) 0.7, Neut # (Auto) 8.5 H, Lymph # (Auto) 1.4, Darke # (Auto) 0.8, Eos # (Auto) 0.3, Baso # (Auto) 0.1 10/26/22 09:43: Sodium 131 L, Potassium 5.8 H, Chloride 94 L, Carbon Dioxide 35 H, Anion Gap 7.8, BUN 7, Creatinine 0.60, Estimated Creat Clear 112, Estimated GFR 102, Est GFR (Afric
--- NOTE | 2022-10-27 10:59 | PC.NURSE ---
Antibiotics to be administered before dc per MD
--- NOTE | 2022-10-27 11:00 | HMH.PHAINT1 ---
Pharmacy Intervention Comments: Discussed discharge medications with patient. Patient verbalized understanding and had no questions at this time.
--- NOTE | 2022-10-28 13:18 | CARE MANAGER ---
Contacted patient related to hospital discharge. 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 She is aware of her follow up appointments and denies any questions or concerns. CINDY Michaud
== END 2022-10-27 13:02 | disposition home or self-care (01) ==
LOC: ER 13:03 → 2ND 13:36
PROVIDERS: Admitting Provider Internal Medicine Adolescent Medicine; Emergency Provider Emergency Medicine; PCP Nurse Practitioner Family; Visit Provider Internal Medicine Adolescent Medicine
DX: E87.5 Hyperkalemia (principal); F17.210 Nicotine dependence, cigarettes, uncomplicated; I10 Essential (primary) hypertension; E78.5 Hyperlipidemia, unspecified; Z79.899 Other long term (current) drug therapy; E03.9 Hypothyroidism, unspecified; J96.11 Chronic respiratory failure with hypoxia; E11.9 Type 2 diabetes mellitus without complications; Z79.84 Long term (current) use of oral hypoglycemic drugs; J44.9 Chronic obstructive pulmonary disease, unspecified; Z99.81 Dependence on supplemental oxygen; E87.1 Hypo-osmolality and hyponatremia; R06.9 Unspecified abnormalities of breathing
CPT/HCPCS: G0378; 36415; 71045; 74177; 80048; 80053; 82962; 83605; 83735; 83880; 84484; 85025; 87040; 87070; 87205; 93005; 94640; 94760; 99285; C9803; J0456; J0696; Q9967; U0003; U0005

== ENCOUNTER → 2022-11-11 11:22 | Outpatient (POV) | payer MEDICARE, SELFPAY ==
--- NOTE | 2022-11-11 12:07 | EXP.PAIN.PRO ---
Procedure Date: 11/11/22 Time: 11:49 Anesthesiologist:: Georgiana Zelaya APRN Complications:: None Pre-procedure Diagnosis:: Degenerative disc disease of lumbar spine with lumbar radiculopathy symptoms, bilateral sacroiliitis Post-procedure Diagnosis:: Same Indications for Procedure:: Patient is a pleasant 62-year-old female who presents today for intrathecal pain pump reprogramming. The patient is being treated for degenerative disc disease of lumbar spine with lumbar radiculopathy symptoms, bilateral sacroiliitis. Patient is currently being managed with Dilaudid 1 mg/mL with a daily dose of 0.0871 mg/day. Patient denies any side effects from this medication. Patient rates pain a 9 out of 10. Patient denies any new trauma or injury. Patient denies any change location or type of pain she experiences. Patient is currently managed with pregabalin 150 mg twice a day and alprazolam 0.5 mg twice a day from her primary care doctor. Patient denies any side effects from this medication. Drug screen is appropriate. [facility] [id number] has been reviewed and is appropriate. Physical exam General: Alert and oriented x3, no acute distress, pleasant and cooperative Lungs: Respirations even and unlabored, symmetrical chest expansion Eyes: PERRL Musculoskeletal: Flexion and extension of lumbar [spine] somewhat guarded secondary to pain, [antalgic gait noted] Neurological: Speech clear, no gross sensory deficit Procedure Details:: Informed consent was obtained and the risk and benefits of the procedure were explained to the patient. Patient was taken to the procedure room where noninvasive monitoring was placed including noninvasive blood pressure cuff and pulse oximeter. Patient's pump was interrogated and was reprogrammed to Dilaudid 0.87767 mg/day. The patient tolerated the procedure well with no complications. Plan and Disposition:: Patient tolerated her increase with no complications. She was monitored in the clinic setting for a short period of time following this adjustment and discharge neurologically intact. Patient will return to clinic in 2 weeks for reevaluation of symptoms, possible intrathecal adjustment and reprogram. Patient has been instructed to contact the clinic with any concerns before the next appointment. Dr. Shields has reviewed this note and agrees with this plan of care. This note was dictated using voice recognition software and make contain errors or omissions. -- It Is medically necessary for this patient to continue to have their intrathecal pump refilled at regular intervals. This patient had an intrathecal pain pump implanted after meeting criteria of chronic intractable pain for greater than 3 months and failing conservative treatments. Patient has committed and been compliant to the treatment plan and all planned follow up care. Since implantation of the intrathecal pain pump, the patient has had decreased pain and been more functional. Oral medications have been reduced including intake of oral opioids. Patient continues to do well with intrathecal therapy with decrease in pain symptoms and increase in functional status. Stopping intrathecal medications can lead to life threatening withdrawal, seizures, cardiac arrest, severe pain, and possible . Pumps that are not refilled at regular intervals can be damages and cause and need for replacement. We continually titrate dose and concentration to optimize pain relief and function. We are limited in concentration for certain drugs to safely deliver medications through the pump and stay within the recommendations from the Polyanalgesic Consensus Committee Guidelines. Depending on dose and concentration these pumps may need to be refilled sooner than 3 months as we titrate.
[2022-11-11 12:14] VITALS: BP 99/54; PULSE 83; RESP 18; O2SAT 87; BMI 35.4
== END | disposition home or self-care (01) ==
PROVIDERS: PCP Nurse Practitioner Family; Visit Provider Nurse Practitioner Family
DX: Z45.1 Encounter for adjustment and management of infusion pump (principal); M51.16 Intervertebral disc disorders with radiculopathy, lumbar region; M46.1 Sacroiliitis, not elsewhere classified
CPT/HCPCS: 62368; 99213; G0463

== ENCOUNTER 2022-11-15 13:48 | Observation (INO) | payer MEDICARE, SELFPAY ==
[2022-11-15] VITALS (12 sets, daily range): BP systolic 122–145; BP diastolic 40–80; PULSE 74–96; RESP 20–26; TEMP 36.7–37; O2SAT 75–96; BMI 35.4; BMI 35.7
--- NOTE | 2022-11-15 13:53 | XR_ITS ---
FINAL REPORT TECHNIQUE: Single view chest CLINICAL HISTORY: soa COMPARISON: 10/26/2022 FINDINGS: A single view of the chest was obtained. The heart and mediastinum are within normal limits. Stable interstitial opacities are seen with slight worsening bibasilar opacities. There are likely small pleural effusions. There is no pneumothorax. Osseous structures are unremarkable. IMPRESSION: Slight worsening bibasilar opacities with small pleural effusions. Recommend upright two-view follow-up. Reviewed, Interpreted and Dictated by Tamie Thibodeaux MD Transcribed by Hanny Porras Authenticated and [facility]
[2022-11-15 14:13] LABS: Basophils # 0.1 K/mm3 (0-0.2); Basophils % 0.5 % (0.1-2.0); Eosinophils # 0.2 K/mm3 (0.0-0.4); Eosinophils % 1.4 % (0.1-12.0); Hemoglobin 11.7 g/dL (12.2-16.2); Lymphocytes # 1.5 K/mm3 (0.7-4.5); Lymphocytes % 12.1 % (10-50); Mean Corpuscular HGB Conc 29.2 g/dL (31.8-35.4); Mean Corpuscular Hemoglobin 21.2 pg (27.0-31.2); Mean Corpuscular Volume 72.9 fl (81-99); Mean Platelet Volume 7.8 fl (7.4-10.4); Monocytes # 0.6 K/mm3 (0.1-1.0); Monocytes % 4.9 % (1.7-9.3); Neutrophils # 9.8 K/mm3 (1.8-7.8); Neutrophils % 81.1 % (37.0-80.0); Platelet Count 221 K/mm3 (142-424); Red Blood Count 5.49 M/mm3 (4.20-5.40); Red Cell Distribution Width 20.4 % (11.5-17.5)
[2022-11-15 14:16] LABS: Chloride 93 mmol/L (98-107); Sodium 132 mmol/L (136-145)
[2022-11-15 14:17] LABS: Potassium 3.1 mmoL/L (3.5-5.1)
[2022-11-15 14:19] LABS: Alanine Aminotransferase 16 U/L (12-78); Albumin Level 3.4 g/dl (3.5-5.0); Alkaline Phosphatase 87 U/L (38-126); Aspartate Amino Transferase 22 U/L (14-36); Bilirubin,Total 0.5 mg/dl (0.2-1.3); Blood Urea Nitrogen 8 mg/dl (7-17); Creatinine Clearance Estimated 107 mL/min (50-200); Estimated Glomerular Filt Rate 102 ml/min (>60); GFR (African American) 123 ML/MIN (>60)
[2022-11-15 14:20] LABS: Albumin/Globulin Ratio 1.1 (1.1-1.8); Anion Gap 7.1 mEq/L (5-15); Calcium 8.3 mg/dl (8.4-10.2); Carbon Dioxide 35 mmol/L (22.0-30.0); Globulin 3.2 g/dL (1.3-3.2); Glucose 98 mg/dl (74-100); Total Protein,Serum 6.6 g/dl (6.3-8.2)
[2022-11-15 14:29] LABS: NT Pro Brain Natriuretic Pep. 1500 pg/mL (0-125)
--- NOTE | 2022-11-15 14:30 | PC.NURSE ---
Rounded on patient when she finished her Duoneb treatment. Patient oxygen saturation was 78% put patient back on 3L instructed patient to take big deep breathes in through her nose and out through her mouth. After a few minutes of this patient's Sat's were still 84% bumped patient's O2 up to 4L and then instructed patient to take a few more deep breathes. Patient's Sat's now up to 92%. Call light within reach.
[2022-11-15 14:33] LABS: Troponin I < 0.01 ng/ml (0.00-0.034)
--- NOTE | 2022-11-15 14:48 | HMH.EDGENADL ---
Discharge Plan Disposition Patient Disposition: Admitted As Inpatient Chief Complaint: Shortness of Breath/Dyspnea Prescriptions Prescriptions: No Action pramipexole 0.25 mg tablet 0.25 mg PO HS losartan 50 mg tablet 50 mg PO DAILY Qty: 30 5RF cyanocobalamin (vitamin B-12) 1,000 mcg/mL solution 1,000 mcg IM MONTHLY Label Comments: INJECT 1 ML INTO A MUSCLE 1 TIME EACH WEEK aspirin [Adult Low Dose Aspirin] 81 mg tablet,delayed release (DR/EC) 81 mg PO DAILY alprazolam 0.5 mg tablet 0.5 mg PO BID PRN (Reason: Anxiety) escitalopram oxalate 20 mg tablet 20 mg PO DAILY levothyroxine 50 mcg tablet 50 mcg PO DAILY Label Comments: TAKE 1 TABLET BY MOUTH EVERY DAY ON AN EMPTY STOMACH ipratropium-albuterol 0.5 mg-3 mg(2.5 mg base)/3 mL solution for nebulization 3 ml IH Q6H PRN (Reason: shortness of breath or wheezing) Qty: 90 6RF furosemide 20 mg tablet 20 mg PO DAILY Qty: 33 5RF albuterol sulfate 90 mcg/actuation HFA aerosol inhaler 1 inh IH Q6H PRN (Reason: shortness of breath or wheezing) 90 Days Qty: 8.5 3RF Spiriva Respimat 2.5 mcg/actuation mist 2 inh inhalation DAILY Rx Instructions: COPD fluticasone furoate-vilanterol [Breo Ellipta] 200-25 mcg/dose blister with device 1 inh inhalation DAILY potassium chloride 20 mEq tablet,ER particles/crystals See Rx Instructions .ROUTE .COMPLEX Label Comments: TAKE 3 TABLETS DAILY AND 2 AT BEDTIME. Rx Instructions: 3 tablets daily and 2 at bedtime pregabalin 150 mg capsule 150 mg PO BID colestipol 1 GM tablet 1 gm PO BID omeprazole 40 mg capsule,delayed release(DR/EC) 40 mg PO DAILY atorvastatin 20 mg tablet 20 mg PO DAILY Label Comments: TAKE 1 TABLET BY MOUTH ONCE A DAY. diltiazem HCl 180 mg capsule,extended release 24hr 360 mg PO DAILY empagliflozin 10 mg tablet 10 mg PO DAILY spironolactone 25 mg tablet 25 mg PO DAILY 30 Days Qty: 30 0RF Referrals Follow up/Referrals: Telma Naylor APRN [Primary Care Provider] - See instructions Clinical Impressions Clinical Impression: Acute exacerbation of chronic obstructive pulmonary disease Discharge ED Provider: Jaret Celis General Adult HPI General Chief complaint: Shortness of Breath/Dyspnea Stated complaint: soa Time Seen by Provider: 11/15/22 14:00 Mode of Arrival: Wheelchair Source of Information: Patient Limitations: No Limitations Description of Symptoms (Recalled from ER Triage Doc. by RN): 62 F presents with increased weakness and shortness of air over the last 2 months. She is a 1 ppd smoker and oxygen dependent at home of 2L/NC. Denies chest pain; however, does report a generalized pain all over anymore. History of Present Illness HPI narrative: 62-year-old female with history of COPD CHF normally on 2 L O2 presents with shortness of air. She has difficulty breathing with walking. Notes current chest pain. She has had cough that is worsening as well. Recently admitted for similar symptoms. Here in the emergency department her oxygen saturation was 75% on 2 L bumped up to 4 L improved Related Data Home Medications Medication Instructions Recorded Confirmed pramipexole 0.25 mg tablet 0.25 mg PO HS Restless leg 04/02/20 11/15/22 pregabalin 150 mg capsule 150 mg PO BID Pain 01/09/21 11/15/22 alprazolam 0.5 mg tablet 0.5 mg PO BID PRN Anxiety 04/23/21 11/15/22 escitalopram oxalate 20 mg tablet 20 mg PO DAILY Depression 11/11/21 11/15/22 colestipol 1 gram tablet 1 gm PO BID diarrhea 12/10/21 11/15/22 cyanocobalamin (vitamin B-12) 1,000 mcg IM MONTHLY Supplement 01/27/22 11/15/22 1,000 mcg/mL injection solution omeprazole 40 mg capsule,delayed 40 mg PO DAILY acid reflux 06/16/22 11/15/22 release fluticasone furoate 200 1 inh inhalation DAILY Breathing 07/01/22 11/15/22 mcg-vilanterol 25 mcg/dose problems inhalation powder (Breo Ellipta)
[2022-11-15 15:07] LABS: Coronavirus 19, PCR Not Detected (NotDetected); Influenza A, PCR Not Detected (NotDetected); Influenza B, PCR Not Detected (NotDetected)
--- NOTE | 2022-11-15 15:47 | PC.NURSE ---
contacted housekeeper to check on status of bed availability for pt, states room is clean and ready, pt assigned to room 205. notified registration of bed assignment
--- NOTE | 2022-11-15 15:49 | PC.NURSE ---
Report called to CINDY Valero. [address] on [address] down now
--- NOTE | 2022-11-15 16:04 | PC.NURSE ---
arrived by w/c to floor from ED
--- NOTE | 2022-11-15 17:10 | PC.NURSE ---
PT A&OX4, TOLERATING 4LNC AT THIS TIME. PT HAS DRY INTERMITTENT COUGH. STANDBY ASSIST. NO NEEDS OR C/O SINCE ARRIVAL TO FLOOR. VSS.
[2022-11-15 17:31] LABS: Troponin I < 0.01 ng/ml (0.00-0.034)
--- NOTE | 2022-11-15 17:34 | EXP.HP ---
History of Present Illness *Admission Date: 11/15/22 *Reason for visit:: SOA *History of present illness: Ms. Woods is a 62-year-old female with chronic hypoxemic respiratory failure, smoking, obesity, diabetes, hypertension, anxiety who presents with feeling more short of breath over the past 1 to 2 weeks. Was recently admitted 3 weeks ago with similar symptoms, at that time she stated she had been feeling poorly for the past 3 months. Her primary complaint is weakness and shortness of breath. Complains of loose stools if she does not take her colestipol. Required 4 L oxygen in the ER, normally on 2 L continuously. Has had a cough that is not productive. Does feel some tightness in her chest when she takes a deep breath. Has had some increased swelling in her legs over the past few weeks. Decrease diuretic over the past month per her report at the instruction of her physicians. Initial work-up in the ER concerning for pulmonary congestion on chest imaging, elevated BNP, CHF exacerbation. Denies any fever, syncope, nausea or vomiting. Medicine consulted for admission. On initial work-up, concern for CHF exacerbation versus COPD exacerbation. Satting well on 4 L. No significant urine output since admission. Will readdress edema with another dose of Lasix. Patient tolerating p.o. intake, at baseline alertness. [facility] Disclaimer: The information contained in this section may have been updated after the patient was seen, as this information can be updated by other users. Medical History Abnormal cardiovascular stress test Allergic rhinitis Allergic rhinitis, unspecified Allergic rhinitis, unspecified Anxiety Asthma Atypical angina Bilateral leg pain Bilateral leg pain Bilateral low back pain with sciatica CAD (coronary artery disease) Chronic bronchitis Chronic bronchitis COPD (chronic obstructive pulmonary disease) COPD (chronic obstructive pulmonary disease) Cough Dyspnea Dyspnea on exertion Edema Elevated left ventricular end-diastolic pressure (LVEDP) Encounter for screening for malignant neoplasm of lung in current smoker with 30 pack year history or greater Encounter for screening for malignant neoplasm of lung in current smoker with 30 pack year history or greater Eosinophilia Eosinophilia Fatigue Fibromyalgia GERD (gastroesophageal reflux disease) Hyperlipidemia Hypertension Hypothyroidism Leg pain Leg pain, bilateral Lung nodule Lung nodule Neuropathy Obesity (BMI 30-39.9) Pulmonary fibrosis Pulmonary fibrosis, unspecified TMJ dysfunction Tobacco abuse Tobacco abuse counseling Tobacco abuse counseling Tobacco abuse counseling Tobacco abuse disorder Tobacco dependence syndrome Unspecified asthma, uncomplicated Surgical History History of arthroscopy of knee History of bladder suspension procedure History of cardiac cath History of section History of colonoscopy History of hemorrhoidectomy History of hysterectomy History of sinus surgery Family History Hypertension Mother Social History Smoking Status: Current every day smoker tobacco type: cigarettes packs per day: 1 years smoked: 40 second hand exposure: Yes alcohol intake: never substance use type: denies use current occupational status: disabled Travel in the last 8 weeks: None household members: spouse housing: house current occupational exposures/hazards: No caffeine: Yes bobby/jewish: Jain Review of Systems Review of Systems Review of systems (narrative): 14 point review of systems performed, pertinent positives and negatives as per HPI ENT Ears, Nose, Mouth, and Throat: Denies dizziness *Neurologic Neurologic: Denies dizziness Meds Home Medications and Allergies Home Medications Me
[2022-11-15 18:18] LABS: Microscopic, Urine URINE MICROSCOPIC (MICROSCOPIC)
[2022-11-15 18:24] LABS: Appearance,Urine CLEAR (Clear); Bilirubin,Urine Negative (Negative); Blood, Urine Negative (Negative); Color,Urine YELLOW (Yellow); Glucose,Urine (UA) 2+ (Negative); Ketones,Urine Negative (Negative); Leukocyte Esterase,Urine Negative (Negative); Nitrate,Urine Negative (Negative); Protein,Urine Negative (Negative); Specific Gravity, Urine <= 1.005 (1.005-1.030); Urobilinogen,Urine 0.2 EU/dl (0.2)
[2022-11-15 19:22] LABS: Squamous Epithelial Cell,Urine Occasional #/hpf (0-5); WBC,Urine Occasional #/hpf (0-3)
[2022-11-15 20:49] LABS: Troponin I < 0.01 ng/ml (0.00-0.034)
[2022-11-16] VITALS (13 sets, daily range): BP systolic 142–153; BP diastolic 68–95; PULSE 73–100; RESP 17–22; TEMP 36.4–36.7; O2SAT 92–97; BMI 35.7
--- NOTE | 2022-11-16 03:36 | PC.NURSE ---
Pt. is aox4, 20g LFA sl, she had gotten lasix yesterday for some edema she had in her legs. 02-4l nc sats in the 90's. She is weak and calls out when needing help ambulating.
[2022-11-16 06:56] LABS: Basophils % 0.3 % (0.1-2.0); Eosinophils % 0.3 % (0.1-12.0); Hematocrit 39.6 % (37.0-47.0); Hemoglobin 11.7 g/dL (12.2-16.2); Lymphocytes # 0.5 K/mm3 (0.7-4.5); Lymphocytes % 10.9 % (10-50); Mean Corpuscular HGB Conc 29.6 g/dL (31.8-35.4); Mean Corpuscular Hemoglobin 21.3 pg (27.0-31.2); Mean Corpuscular Volume 72.1 fl (81-99); Mean Platelet Volume 9.6 fl (7.4-10.4); Monocytes # 0.2 K/mm3 (0.1-1.0); Monocytes % 4.2 % (1.7-9.3); Neutrophils # 3.7 K/mm3 (1.8-7.8); Neutrophils % 84.4 % (37.0-80.0); Platelet Count 241 K/mm3 (142-424); Red Blood Count 5.49 M/mm3 (4.20-5.40); Red Cell Distribution Width 20.2 % (11.5-17.5); White Blood Count 4.4 K/mm3 (4.8-10.8)
[2022-11-16 07:09] LABS: Alanine Aminotransferase 17 U/L (12-78); Albumin Level 3.4 g/dl (3.5-5.0); Albumin/Globulin Ratio 1.1 (1.1-1.8); Alkaline Phosphatase 87 U/L (38-126); Aspartate Amino Transferase 20 U/L (14-36); Bilirubin,Total 0.5 mg/dl (0.2-1.3); Blood Urea Nitrogen 6 mg/dl (7-17); Calcium 8.4 mg/dl (8.4-10.2); Carbon Dioxide 40 mmol/L (22.0-30.0); Chloride 91 mmol/L (98-107); Creatinine Clearance Estimated 108 mL/min (50-200); Estimated Glomerular Filt Rate 125 ml/min (>60); GFR (African American) 152 ML/MIN (>60); Globulin 3.2 g/dL (1.3-3.2); Glucose 126 mg/dl (74-100); Magnesium 2.1 mg/dl (1.6-2.3); Sodium 134 mmol/L (136-145); Total Protein,Serum 6.6 g/dl (6.3-8.2)
--- NOTE | 2022-11-16 08:18 | HMH.PHAINT1 ---
Pharmacy Intervention Comments: Reconciled patient's home medications using pharmacy fill history
--- NOTE | 2022-11-16 08:39 | PC.NURSE ---
is aware of critical potassium results
--- NOTE | 2022-11-16 16:29 | HMH.PTEV ---
Physical Therapy Evaluation Rehab PT IP Evaluation Start: 11/16/22 13:46 Freq: ONCE Status: Active Protocol: Document 11/16/22 16:19 VENKATA (Rec: 11/16/22 16:24 VENKATA [id number]) Subjective/History History History 62 yowf adm to [facility] with COPD exac and CHF with general SOA with all activity. She reports she lives with who assists with all of her ADLs, ramp to enter the home, and she is independent with ambulation using rolator. She is currently on 4 L/min NC O2. Subjective Subjective She reports, I just get so tired when I do anything and real short of breath all the time. Rehab PT IP Eval Objective Appearance Patient Behavior Appropriate Patient Orientation Person,Place,Time Difficulty following instructions none Speech Pattern Clear Ambulation Patient Able to Ambulate Yes Balance Ability to Arise Able, uses arms to help Sitting Balance Steady, safe Standing Balance Steady, wide stance Dynamic Sitting Balance Ability Good Dynamic Standing Balance Ability Fair Transfers Bed Transfer Ability Independent Chair Transfer Ability Independent Sit to Stand Bed Transfer Ability Independent Sit to Stand Chair Transfer Ability Independent Rehab PT IP prob,goals,plan Problems Date of Evaluation: 11/16/22 Discharge Plan PT Discharge Plan Pt currently appears to be at baseline for all ambulation and transfers and is appropriate to return home once medically stable for d/c. G -code Required No Eval Complexity Eval Charge Codes 80463 - Moderate Complexity PHYSICIAN CERTIFICATION: I certify the specified therapy services for Lacy Shaw are required, authorized, and reviewed every 30 days.
--- NOTE | 2022-11-16 17:55 | EXP.ACUTE.PN ---
Subjective *Date: 11/16/22 *Time: 14:55 Interval history: Patient stable on 2 L nasal cannula today. Has diuresed well, over a liter of output with diuresis. States she feels somewhat better. Still quite weak. Though this has been going on for few months. No nausea, vomiting, diarrhea. Denies any chest pain. No cough at this time. Tolerating current meds. Afebrile and hemodynamically stable Medical Exam Vital signs and Labs for Last 24 Hours: Vital Signs Temp Pulse Pulse Resp BP Pulse Ox 11/16/22 16:00 100 H 11/16/22 08:00 80 11/16/22 12:00 80 11/16/22 15:11 97.6 F 88 17 151/81 H 96 11/16/22 11:05 98.1 F 84 18 153/70 H 96 11/16/22 11:05 96 11/16/22 11:05 86 11/16/22 11:05 84 11/16/22 07:37 98.1 F 86 18 142/73 H 93 L 11/16/22 06:24 73 11/16/22 06:24 77 11/16/22 06:24 96 11/16/22 04:00 90 11/16/22 00:00 90 11/16/22 04:00 97.7 F 92 H 22 150/95 H 92 L 11/16/22 00:11 88 11/16/22 00:11 88 11/16/22 00:00 95 11/15/22 23:59 98.3 F 86 20 128/53 L 94 L 11/15/22 20:00 95 11/15/22 20:00 98.6 F 87 20 133/56 L 95 11/15/22 19:27 96 H 11/15/22 19:27 91 H 11/15/22 19:27 92 L Intake and Output 11/16/22 11/16/22 11/16/22 07:59 15:59 23:59 Intake Total 480 / 1800 840 / 1800 480 / 1800 Output Total 1600 / 4400 2200 / 4400 600 / 4400 Balance -1120 / -2600 -1360 / -2600 -120 / -2600 Intake: Intake, Oral Amount 480 / 1800 840 / 1800 480 / 1800 Output: Output, Urine Amount 1600 / 4400 2200 / 4400 600 / 4400 Other: Number of Unmeasured Voids 0 0 0 Weight 115.893 kg Patient Weight 11/16/22 23:59 Weight 115.893 kg Laboratory Results - last 24 hr 11/15/22 13:54: Urine Color Yellow, Urine Appearance Clear, Urine pH 6.0, Ur Specific [place] <= 1.005, Urine Protein Negative, Urine Glucose (UA) 2+, Urine Ketones Negative, Urine Blood Negative, Urine Nitrate Negative, Urine Bilirubin Negative, Urine Urobilinogen 0.2, Ur Leukocyte Esterase Negative, Urine RBC None, Urine WBC Occasional, Ur Squamous Epith Cells Occasional, Urine Bacteria None 11/15/22 20:00: Troponin I < 0.01 11/16/22 06:45: WBC 4.4 L D, RBC 5.49 H, Hgb 11.7 L, Hct 39.6, MCV 72.1 L, MCH 21.3 L, MCHC 29.6 L, RDW 20.2 H, Plt Count 241, MPV 9.6, Neut % (Auto) 84.4 H, Lymph % (Auto) 10.9, [place] % (Auto) 4.2, Eos % (Auto) 0.3, Baso % (Auto) 0.3, Neut # (Auto) 3.7, Lymph # (Auto) 0.5 L, [place] # (Auto) 0.2, Eos # (Auto) 0.0, Baso # (Auto) 0.0 11/16/22 06:45: Sodium 134 L, Potassium 3.0 L, Chloride 91 L, Carbon Dioxide 40 H, Anion Gap 6.0, BUN 6 L, Creatinine 0.50 L, Estimated Creat Clear 108, Estimated GFR 125, Est GFR ( Amer) 152 D, Glucose 126 H D, Calcium 8.4, Magnesium 2.1, Total Bilirubin 0.5, AST 20, ALT 17, Alkaline Phosphatase 87, Total Protein 6.6, Albumin 3.4 L, Globulin 3.2, Albumin/Globulin Ratio 1.1 I & O for Labs for Last 24 Hours: Intake & Output 11/13/22 11/14/22 11/15/22 11/16/22 23:59 23:59 23:59 23:59 Intake Total 730 / 730 1800 / 1800 Output Total 200 / 200 4400 / 4400 Balance 530 / 530 -2600 / -2600 Weight 116.318 kg 115.893 kg Constitutional: Present no acute distress, obese and chronically ill appearing Head: Present atraumatic and normocephalic ENT: Present normal exam Neck: Present normal inspection Respiratory: Present decreased breath sounds, wheezes and crackles (crackles in bases); Absent accessory muscle use or rhonchi Cardiac: Present Reg Rate and Rhythm GI: Present soft and normal bowel sounds; Absent distention or tenderness Extremities: Present normal inspection, full ROM and edema (trace, interval improvement) Skin: Present intact; Absent erythema Neuro: Present Cranial Nerve 2-12 Intact, Grossly Intact, alert, awake, oriented x 3 and moves all extremities Assessment and Plan *Assessment and plan (1) (HFpEF) heart failure with preserved eject
[2022-11-17] VITALS: BP 146/73; PULSE 94; RESP 24; TEMP 36.7; O2SAT 95
[2022-11-17 00:37] VITALS: PULSE 90
--- NOTE | 2022-11-17 03:58 | PC.NURSE ---
PT A&OX4, TOLERATING 3L NC AT THIS TIME. PT HAS DRY INTERMITTENT COUGH. STANDBY ASSIST AT TIMES AND IS NOW USING A WALKER FOR ASSISTANCE. VSS. NO CHANGES NOTED.
[2022-11-17 04:00] VITALS: BP 141/90; PULSE 120; PULSE 87; RESP 24; TEMP 36.6; O2SAT 94; BMI 36.0
[2022-11-17 06:18] VITALS: PULSE 84; PULSE 85
[2022-11-17 07:30] LABS: Basophils % 0.2 % (0.1-2.0); Eosinophils % 0.4 % (0.1-12.0); Hematocrit 38.2 % (37.0-47.0); Hemoglobin 11.3 g/dL (12.2-16.2); Lymphocytes # 0.9 K/mm3 (0.7-4.5); Lymphocytes % 10.1 % (10-50); Mean Corpuscular HGB Conc 29.6 g/dL (31.8-35.4); Mean Corpuscular Hemoglobin 21.5 pg (27.0-31.2); Mean Corpuscular Volume 72.6 fl (81-99); Mean Platelet Volume 8.8 fl (7.4-10.4); Monocytes # 0.7 K/mm3 (0.1-1.0); Monocytes % 8.1 % (1.7-9.3); Neutrophils # 7.1 K/mm3 (1.8-7.8); Neutrophils % 81.1 % (37.0-80.0); Platelet Count 274 K/mm3 (142-424); Red Blood Count 5.26 M/mm3 (4.20-5.40); Red Cell Distribution Width 20.1 % (11.5-17.5); White Blood Count 8.8 K/mm3 (4.8-10.8)
[2022-11-17 07:42] LABS: Alanine Aminotransferase 19 U/L (12-78); Albumin Level 3.4 g/dl (3.5-5.0); Albumin/Globulin Ratio 1.3 (1.1-1.8); Alkaline Phosphatase 71 U/L (38-126); Anion Gap 6.8 mEq/L (5-15); Aspartate Amino Transferase 27 U/L (14-36); Bilirubin,Total 0.7 mg/dl (0.2-1.3); Blood Urea Nitrogen 12 mg/dl (7-17); Calcium 8.6 mg/dl (8.4-10.2); Carbon Dioxide 36 mmol/L (22.0-30.0); Chloride 93 mmol/L (98-107); Creatinine Clearance Estimated 109 mL/min (50-200); Estimated Glomerular Filt Rate 125 ml/min (>60); GFR (African American) 152 ML/MIN (>60); Globulin 2.7 g/dL (1.3-3.2); Glucose 105 mg/dl (74-100); Magnesium 1.9 mg/dl (1.6-2.3); Potassium 3.8 mmoL/L (3.5-5.1); Sodium 132 mmol/L (136-145); Total Protein,Serum 6.1 g/dl (6.3-8.2)
[2022-11-17 08:00] VITALS: BP 122/62; PULSE 110; PULSE 99; RESP 16; RESP 20; TEMP 37.2; O2SAT 96; O2SAT 97
[2022-11-17 11:08] VITALS: PULSE 76; PULSE 80
--- NOTE | 2022-11-17 11:33 | EXP.DC.SUM ---
General Admission date:: 11/15/22 Discharge date: 11/17/22 HPI HPI HPI: Ms. Woods is a 62-year-old female with chronic hypoxemic respiratory failure, smoking, obesity, diabetes, hypertension, anxiety who presents with feeling more short of breath over the past 1 to 2 weeks. Was recently admitted 3 weeks ago with similar symptoms, at that time she stated she had been feeling poorly for the past 3 months. Her primary complaint is weakness and shortness of breath. Complains of loose stools if she does not take her colestipol. Required 4 L oxygen in the ER, normally on 2 L continuously. Has had a cough that is not productive. Does feel some tightness in her chest when she takes a deep breath. Has had some increased swelling in her legs over the past few weeks. Decrease diuretic over the past month per her report at the instruction of her physicians. Initial work-up in the ER concerning for pulmonary congestion on chest imaging, elevated BNP, CHF exacerbation. Denies any fever, syncope, nausea or vomiting. Medicine consulted for admission. On initial work-up, concern for CHF exacerbation versus COPD exacerbation. Satting well on 4 L. No significant urine output since admission. Will readdress edema with another dose of Lasix. Patient tolerating p.o. intake, at baseline alertness. Hospital Course Hospital Course Hospital Course: 62-year-old female with multiple comorbidities admitted for acute CHF exacerbation and COPD exacerbation.? Medicine consulted for admission by the ER.? Decision made to admit patient for further management and diuresis.? Responding well to diuresis.? responded well to diuresis. Improved O2 requirement during admission. Problems addressed as follows: Heart failure with preserved ejection fraction, acute exacerbation Volume overload COPD -Peripheral edema noted on admission. Patient initiated on diuretics. Diuresed well with Lasix. -4+ L during course of admission. Some improvement in breathing with decreased oxygen requirement. Weaned to 2 L nasal cannula by day of discharge. Sats stable in the mid 90s. Additionally treated with DuoNebs every 6 hours, Spiriva per home regimen. At discharge recommend continuing azithromycin to complete 5-day course for COPD exacerbation and 5 days of steroids. White cell count normalized by day of discharge. Resume oral diuretic and potassium supplementation at discharge. Close follow-up with PCP. Patient wants to establish with new physician. Referred to Dr. Bubba Green as this is close for her and within the [facility] system, per her preference. Hypokalemia: Replacement with oral and IV, improved from 3.0 on admission to 3.8 at discharge Hypertension: Continue home diltiazem and losartan Hyperlipidemia: Continue home Lipitor Anxiety: Home Lexapro and Xanax GERD: Continue home omeprazole Hypothyroid: Continue home levothyroxine Restless leg: Continue home pramipexole and pregabalin Stable for discharge home. Improved oxygen requirement. Resume diuretic regimen at discharge. Follow-up with new PCP for further management Exam Data for Last 24 hours Vital signs and Labs for Last 24 Hours: Temp Pulse Resp BP Pulse Ox 98.9 F 76 16 122/62 97 11/17/22 08:00 11/17/22 11:08 11/17/22 08:00 11/17/22 08:00 11/17/22 08:00 Laboratory Results - last 24 hr 11/17/22 07:05: WBC 8.8 D, RBC 5.26, Hgb 11.3 L, Hct 38.2, MCV 72.6 L, MCH 21.5 L, MCHC 29.6 L, RDW 20.1 H, Plt Count 274, MPV 8.8, Neut % (Auto) 81.1 H, Lymph % (Auto) 10.1, [place] % (Auto) 8.1, Eos % (Auto) 0.4, Baso % (Auto) 0.2, Neut # (Auto) 7.1, Lymph # (Auto) 0.9, [place] # (Auto) 0.7, Eos # (Auto) 0.0, Baso # (Auto) 0.0 11/17/22 07:05: Sodium 132 L, Potassium 3.8 D, Chloride 93 L, Carbon Dioxide 36 H, Anion Gap 6.8, BUN 12 D, Creatinine 0.50 L, Estimated Creat Clear 109, Estimated GFR 125, Est GFR ( Amer) 152, Glucose 105 H, Calcium 8.6, Magnesium 1.9, Total Bilirubin 0.7, AST 27
--- NOTE | 2022-11-18 14:41 | CARE MANAGER ---
Spoke with patient for post-discharge phone interview, no issues noted.
== END 2022-11-17 12:09 | disposition home or self-care (01) ==
LOC: ER 14:51 → 2ND 15:06
PROVIDERS: Admitting Provider Internal Medicine Adolescent Medicine; Emergency Provider Emergency Medicine; PCP Nurse Practitioner Family; Visit Provider Internal Medicine Adolescent Medicine
DX: J44.1 Chronic obstructive pulmonary disease with (acute) exacerbation (principal); I50.33 Acute on chronic diastolic (congestive) heart failure; J96.11 Chronic respiratory failure with hypoxia; E11.9 Type 2 diabetes mellitus without complications; I11.0 Hypertensive heart disease with heart failure; F17.210 Nicotine dependence, cigarettes, uncomplicated; Z79.84 Long term (current) use of oral hypoglycemic drugs; Z79.899 Other long term (current) drug therapy; E03.9 Hypothyroidism, unspecified; Z20.822 Contact with and (suspected) exposure to COVID-19
CPT/HCPCS: G0378; 36415; 71045; 80053; 81001; 83735; 83880; 84484; 85025; 94640; 94760; 94761; 97162; 97165; 99285; C9803; J0456; U0003; U0005

== ENCOUNTER → 2022-11-23 11:10 | Outpatient (CLI) | payer MEDICARE, SELFPAY ==
[2022-11-23 12:00] LABS: Strep Scrn Group A (Rapid) Negative (Negative)
[2022-11-23 12:57] LABS: Blood Urea Nitrogen 10 mg/dl (7-17); Calcium 8.6 mg/dl (8.4-10.2); Carbon Dioxide 35 mmol/L (22.0-30.0); Chloride 96 mmol/L (98-107); Estimated Glomerular Filt Rate 102 ml/min (>60); GFR (African American) 123 ML/MIN (>60); Glucose 66 mg/dl (74-100); Sodium 135 mmol/L (136-145)
[2022-11-23 13:05] LABS: NT Pro Brain Natriuretic Pep. 412 pg/mL (0-125)
== END ==
PROVIDERS: PCP Nurse Practitioner Family; Visit Provider Physician Assistant
DX: J02.9 Acute pharyngitis, unspecified (principal); E78.5 Hyperlipidemia, unspecified; G47.33 Obstructive sleep apnea (adult) (pediatric); I10 Essential (primary) hypertension; I50.30 Unspecified diastolic (congestive) heart failure; I67.2 Cerebral atherosclerosis; J44.9 Chronic obstructive pulmonary disease, unspecified; R06.09 Other forms of dyspnea
CPT/HCPCS: 36415; 80048; 83880; 87430; C9803; U0003; U0005

== ENCOUNTER → 2022-11-24 13:44 | Outpatient (POV) | payer MEDICARE, SELFPAY ==
[2022-11-24 15:09] VITALS: BP 105/36; PULSE 80; RESP 20; O2SAT 88; BMI 36.4
--- NOTE | 2022-11-24 15:14 | P.PCN_ITS ---
Procedure Date: 11/24/22 Time: 14:53 Anesthesiologist:: Georgiana Zelaya APRN Complications:: None Pre-procedure Diagnosis:: Degenerative disc disease of lumbar spine with lumbar radiculopathy symptoms, bilateral sacroiliitis Post-procedure Diagnosis:: Same Indications for Procedure:: Patient is a pleasant 62-year-old female who presents today for intrathecal pain pump reprogram and adjustment. The patient is being treated for degenerative disc disease of lumbar spine with lumbar radiculopathy symptoms, sacroiliitis. Patient is currently being managed with Dilaudid 1 mg/mL with a daily dose of 0.0960. Patient denies any side effects from this medication. Patient rates pain a 10 out of 10. Drug screen is appropriate. Je [id number] has been reviewed and is appropriate. Physical exam General: Alert and oriented x3, no acute distress, pleasant and cooperative Lungs: Respirations even and unlabored, symmetrical chest expansion Eyes: PERRL Musculoskeletal: Flexion and extension of lumbar [spine] somewhat guarded secondary to pain, [antalgic gait noted] Neurological: Speech clear, no gross sensory deficit Procedure Details:: Informed consent was obtained and the risk and benefits of the procedure were explained to the patient. Patient was taken to the procedure room where noninvasive monitoring was placed including noninvasive blood pressure cuff and pulse oximeter. Patient's pump was interrogated and was reprogrammed to Dilaudid 0.1152 mg/day. The patient tolerated the procedure well with no complications. Plan and Disposition:: We will see the patient back in the clinic at the next intrathecal refill. Patient has been instructed to contact the clinic with any concerns before the next appointment. Dr. Shields has reviewed this note and agrees with this plan of care. This note was dictated using voice recognition software and make contain errors or omissions. -- It Is medically necessary for this patient to continue to have their intrathecal pump refilled at regular intervals. This patient had an intrathecal pain pump implanted after meeting criteria of chronic intractable pain for greater than 3 months and failing conservative treatments. Patient has committed and been compliant to the treatment plan and all planned follow up care. Since implantation of the intrathecal pain pump, the patient has had decreased pain and been more functional. Oral medications have been reduced including intake of oral opioids. Patient continues to do well with intrathecal therapy with decrease in pain symptoms and increase in functional status. Stopping intr athecal medications can lead to life threatening withdrawal, seizures, cardiac arrest, severe pain, and possible . Pumps that are not refilled at regular intervals can be damages and cause and need for replacement. We continually titrate dose and concentration to optimize pain relief and function. We are limited in concentration for certain drugs to safely deliver medications through the pump and stay within the recommendations from the Polyanalgesic Consensus Committee Guidelines. Depending on dose and concentration these pumps may need to be refilled sooner than 3 months as we titrate.
== END | disposition home or self-care (01) ==
PROVIDERS: PCP Nurse Practitioner Family; Visit Provider Nurse Practitioner Family
DX: Z45.1 Encounter for adjustment and management of infusion pump (principal); M51.16 Intervertebral disc disorders with radiculopathy, lumbar region; M46.1 Sacroiliitis, not elsewhere classified
CPT/HCPCS: 62368; 99213; G0463

== ENCOUNTER → 2022-12-01 19:11 | Outpatient (CLI) | payer MEDICARE, SELFPAY ==
[2022-12-01 17:20] LABS: Chloride 96 mmol/L (98-107); Potassium 4.6 mmoL/L (3.5-5.1); Sodium 135 mmol/L (136-145)
[2022-12-01 17:23] LABS: Anion Gap 12.6 mEq/L (5-15); Blood Urea Nitrogen 9 mg/dl (7-17); Calcium 8.6 mg/dl (8.4-10.2); Carbon Dioxide 31 mmol/L (22.0-30.0); Estimated Glomerular Filt Rate 85 ml/min (>60); GFR (African American) 103 ML/MIN (>60); Glucose 83 mg/dl (74-100)
== END ==
PROVIDERS: PCP Family Medicine; Visit Provider Family Medicine
DX: E87.6 Hypokalemia (principal)
CPT/HCPCS: 80048

== ENCOUNTER → 2022-12-02 11:41 | Outpatient (CLI) | payer MEDICARE, SELFPAY ==
--- NOTE | 2022-12-02 11:46 | XR_ITS ---
FINAL REPORT CLINICAL HISTORY: knee pain FINDINGS: Left knee Three views were obtained. There is no acute fracture or dislocation. There are mild degenerative changes. No joint effusion is identified. No soft tissue abnormality is identified. IMPRESSION: Mild degenerative changes. Reviewed, Interpreted and Dictated by Brendan Multani III, MD Transcribed by Lacy Graham Authenticated and [facility]
--- NOTE | 2022-12-02 11:46 | XR_ITS ---
FINAL REPORT CLINICAL HISTORY: knee pain FINDINGS: Right knee Three views were obtained. There are mild degenerative changes. There is a fracture of the lateral tibial plateau which may be acute or subacute. There is mild inferior displacement of the lateral fracture fragment. Moderate joint effusion is identified. IMPRESSION: Acute or subacute fracture of the lateral tibial plateau. Reviewed, Interpreted and Dictated by Brendan Multani III, MD Transcribed by Lacy Graham Authenticated and . [facility]
== END ==
LOC: RAD 11:42
PROVIDERS: PCP Family Medicine; Visit Provider Orthopaedic Surgery
DX: M25.561 Pain in right knee (principal); M25.562 Pain in left knee
CPT/HCPCS: 73562

== ENCOUNTER → 2022-12-07 12:19 | Outpatient (CLI) | payer MEDICARE, SELFPAY ==
--- NOTE | 2022-12-07 12:26 | CT_ITS ---
FINAL REPORT TECHNIQUE: Thin section axial CT images with coronal and sagittal reformats were performed. 3D reformatted images were obtained and reviewed. This study was performed with techniques to keep radiation doses as low as reasonably achievable (ALARA). Individualized dose reduction techniques using automated exposure control or adjustment of mA and/or kV according to the patient''s size were employed. CLINICAL HISTORY: right knee pain, injury months ago FINDINGS: There is a chronic fracture of the lateral tibial plateau with 2 mm of impaction of the fracture fragment. There is near complete bony fusion but with persistent cleft in the lateral tibial plateau. There is a chronic appearing fracture of the proximal fibular metaphysis. The portion of the fracture line is still visualized. There is moderate degenerative change. Moderate joint effusion is identified. There is a small popliteal cyst. IMPRESSION: Chronic fractures as detailed above. No acute bony abnormality. Reviewed, Interpreted and Dictated by Brendan Multani III, MD Transcribed by Lacy Graham Authenticated and [facility]
== END ==
LOC: RAD 12:19
PROVIDERS: PCP Family Medicine; Visit Provider Orthopaedic Surgery
DX: M25.561 Pain in right knee (principal)
CPT/HCPCS: 73700

== ENCOUNTER → 2022-12-09 13:57 | Outpatient (POV) | payer MEDICARE, SELFPAY ==
--- NOTE | 2022-12-09 14:37 | EXP.PAIN.PRO ---
Procedure Date: 12/09/22 Time: 14:37 Anesthesiologist:: Georgiana Zelaya APRN Complications:: None Pre-procedure Diagnosis:: Degenerative disc disease of lumbar spine with lumbar radiculopathy symptoms, bilateral sacroiliitis, bilateral knee pain Post-procedure Diagnosis:: Same Indications for Procedure:: Patient is a pleasant 62-year-old female who presents today for follow-up and intrathecal pain pump reprogramming adjustment. The patient is being treated for degenerative disc disease of lumbar spine with lumbar radiculopathy symptoms, bilateral sacroiliitis, bilateral knee pain. Patient is currently being managed with pregabalin 150 mg twice a day, alprazolam 0.5 mg twice a day from her primary care doctor and intrathecal Dilaudid 1 mg/mL with a daily dose of 0.1152 mg/day. Patient denies any side effects from this medication. Patient rates pain a 10 out of 10. Patient denies any new trauma. She does state that her right knee has been killing her. She does describe this as an aching, throbbing sensation that is worse with increased activity. She does state this is a constant pain and that it is affecting her ability to perform activities of daily living such as cooking and cleaning. She has been recently to Dr. Zelaya regarding this knee and he is requesting we do a nerve block. Patient has had updated imaging that did show a chronic fracture of the lateral tibial plateau. drug screen is appropriate. [facility] [id number] has been reviewed and is appropriate. Physical exam General: Alert and oriented x3, no acute distress, pleasant and cooperative Lungs: Respirations even and unlabored, symmetrical chest expansion Eyes: PERRL Musculoskeletal: Flexion and extension of right knee somewhat guarded secondary to pain, [antalgic gait noted] Neurological: Speech clear, no gross sensory deficit FINAL REPORT TECHNIQUE: Thin section axial CT images with coronal and sagittal reformats were performed.? 3D reformatted images were obtained and reviewed.? This study was performed with techniques to keep radiation doses as low as reasonably achievable (ALARA). Individualized dose reduction techniques using automated exposure control or adjustment of mA and/or kV according to the patient''s size were employed. CLINICAL HISTORY: right? knee pain, injury months ago FINDINGS: There is a chronic fracture of the lateral tibial plateau with 2 mm of impaction of the fracture fragment.? There is near complete bony fusion but with persistent cleft in the lateral tibial plateau.? There is a chronic appearing fracture of the proximal fibular metaphysis.? The portion of the fracture line is still visualized.? There is moderate degenerative change. Moderate joint effusion is identified.? There is a small popliteal cyst. IMPRESSION: Chronic fractures as detailed above.? ? No acute bony abnormality. Reviewed, Interpreted and Dictated by Brendan Multani III, MD Transcribed by Lacy Graham Authenticated and [facility] Procedure Details:: Informed consent was obtained and the risk and benefits of the procedure were explained to the patient. Patient was taken to the procedure room where noninvasive monitoring was placed including noninvasive blood pressure cuff and pulse oximeter. Patient's pump was interrogated and was reprogrammed to Dilaudid 0.127 mg/day. The patient tolerated the procedure well with no complications. Plan and Disposition:: Patient is experiencing significant pain in her right knee with limited range of motion. Patient CT imaging did show a chronic fracture of her lateral tibial plateau. I have discussed with the patient that she may benefit from a right genicular nerve block. Risk and benefits were discussed with the patient and she would like to proceed forward with this plan of care. Patient is not on any blood thinners. We will schedule her for a righ
[2022-12-09 14:55] VITALS: BP 116/55; PULSE 77; RESP 22; O2SAT 93; BMI 39.2
== END | disposition home or self-care (01) ==
PROVIDERS: Visit Provider Nurse Practitioner Family
DX: M51.16 Intervertebral disc disorders with radiculopathy, lumbar region (principal); M46.1 Sacroiliitis, not elsewhere classified; M25.561 Pain in right knee; M25.562 Pain in left knee
CPT/HCPCS: 62368; 99213; G0463

== ENCOUNTER 2022-12-14 08:35 | Day surgery (SDC) | payer MEDICARE, SELFPAY ==
[2022-12-14 08:53] VITALS: BP 101/56; PULSE 75; RESP 18; TEMP 36.6; O2SAT 94; BMI 38.2
[2022-12-14 08:59] VITALS: BP 147/62; PULSE 71; RESP 18; O2SAT 95
[2022-12-14 09:01] VITALS: BP 147/62; PULSE 71; RESP 20; O2SAT 95
--- NOTE | 2022-12-14 09:09 | EXP.PAIN.PRO ---
Procedure Date: 12/14/22 Time: 08:50 Anesthesiologist:: Roberto Miller CRNA Complications:: None Pre-procedure Diagnosis:: Osteoarthritis right knee. Chronic right knee pain. Post-procedure Diagnosis:: Same. Indications for Procedure:: Very pleasant 62-year-old female who presents to our clinic today for right genicular nerve block. She has chronic right knee pain. Osteoarthritis right knee. Difficulty with ambulation. Patient is also oxygen dependent. However, patient reports she does ambulate at home daily. Right knee pain is causing her to be more sedentary. Procedure Details:: Right knee genicular block Informed consent was obtained and the risk and benefits of the procedure was explained to the patient. The patient was taken to the procedure room. The right knee was prepped using ChloraPrep. I placed 22-gauge needles into the area of the right superior medial genicular nerve, right superior lateral genicular nerve and right inferior medial genicular nerve. Needle placement was confirmed in AP and lateral views with dye. We then injected bupivacaine 0.25% 3 mL's and Depo-Medrol 25 mg into each area of the right superior medial genicular nerve, right superior lateral genicular nerve and right inferior medial genicular nerve. Patient tolerated the procedure well with no complications. Plan and Disposition:: We will follow-up with her in 2 weeks. Will reevaluate symptoms at that time. Plan and Disposition:: Patient was discharged without incident
[2022-12-14 09:10] VITALS: BP 106/47; PULSE 75; RESP 18; O2SAT 94
== END 2022-12-14 09:10 | disposition home or self-care (01) ==
PROVIDERS: PCP Family Medicine; Visit Provider Nurse Anesthetist, Certified Registered
DX: M17.11 Unilateral primary osteoarthritis, right knee (principal); M25.561 Pain in right knee; G89.29 Other chronic pain
CPT/HCPCS: 64454; J1040

== ENCOUNTER → 2023-01-03 09:28 | Outpatient (POV) | payer MEDICARE, SELFPAY ==
--- NOTE | 2023-01-03 10:20 | EXP.PAIN.PRO ---
Procedure Date: 01/03/23 Time: 10:20 Anesthesiologist:: Georgiana Zelaya APRN Complications:: None Pre-procedure Diagnosis:: degenerative disc disease of lumbar spine with lumbar radiculopathy symptoms, bilateral sacroiliitis, bilateral knee pain Post-procedure Diagnosis:: Same Indications for Procedure:: Patient is a pleasant 62-year-old female who presents today for follow-up of right genicular nerve block on 12/14/2022 and intrathecal pain pump reprogramming adjustment. The patient is being treated for degenerative disc disease of lumbar spine with lumbar radiculopathy symptoms, bilateral sacroiliitis, bilateral knee pain. Patient is currently being managed with Dilaudid 1 mg/mL with a daily dose of 0.127 mg/day. Patient denies any side effects from this medication. Patient rates pain a 10 out of 10. Patient denies any new trauma or injury. Patient denies any change location or type of pain she experiences. She states she has pain from her shoulders down to her feet on a regular basis. She does describe this as a constant aching, throbbing sensation drug screen is appropriate. Patient is also prescribed pregabalin 150 mg twice a day and alprazolam 0.5 mg twice a day from outside providers. [facility] [id number] has been reviewed and is appropriate. Physical exam General: Alert and oriented x3, no acute distress, pleasant and cooperative Lungs: Respirations even and unlabored, symmetrical chest expansion Eyes: PERRL Musculoskeletal: Flexion and extension of lumbar [spine] somewhat guarded secondary to pain, [antalgic gait noted] Neurological: Speech clear, no gross sensory deficit Procedure Details:: Informed consent was obtained and the risk and benefits of the procedure were explained to the patient. Patient was taken to the procedure room where noninvasive monitoring was placed including noninvasive blood pressure cuff and pulse oximeter. Patient's pump was interrogated and was reprogrammed to Dilaudid 0.146 mg/day. The patient tolerated the procedure well with no complications. Plan and Disposition:: Patient tolerated her intrathecal increase with no complications and was discharged neurologically intact. I will order the patient compounding cream at today's visit. Patient will return to clinic in 2 weeks for reevaluation of symptoms and plan of care. Patient has been instructed to contact the clinic with any concerns before the next appointment. Dr. Shields has reviewed this note and agrees with this plan of care. This note was dictated using voice recognition software and make contain errors or omissions. -- It Is medically necessary for this patient to continue to have their intrathecal pump refilled at regular intervals. This patient had an intrathecal pain pump implanted after meeting criteria of chronic intractable pain for greater than 3 months and failing conservative treatments. Patient has committed and been compliant to the treatment plan and all planned follow up care. Since implantation of the intrathecal pain pump, the patient has had decreased pain and been more functional. Oral medications have been reduced including intake of oral opioids. Patient continues to do well with intrathecal therapy with decrease in pain symptoms and increase in functional status. Stopping intrathecal medications can lead to life threatening withdrawal, seizures, cardiac arrest, severe pain, and possible . Pumps that are not refilled at regular intervals can be damages and cause and need for replacement. We continually titrate dose and concentration to optimize pain relief and function. We are limited in concentration for certain drugs to safely deliver medications through the pump and stay within the recommendations from the Polyanalgesic Consensus Committee Guidelines. Depending on dose and concentration these pumps may need to be refilled sooner than 3 months as we titrate.
[2023-01-03 14:38] VITALS: BP 105/32; PULSE 78; RESP 18; O2SAT 97; BMI 34.0
== END | disposition home or self-care (01) ==
PROVIDERS: PCP Family Medicine; Visit Provider Nurse Practitioner Family
DX: Z45.1 Encounter for adjustment and management of infusion pump (principal); M51.16 Intervertebral disc disorders with radiculopathy, lumbar region; M46.1 Sacroiliitis, not elsewhere classified; M25.561 Pain in right knee; M25.562 Pain in left knee
CPT/HCPCS: 62368; 99213; G0463

== ENCOUNTER 2023-01-11 07:48 | Day surgery (SDC) | payer MEDICARE, SELFPAY ==
[2023-01-11 08:15] VITALS: BP 124/70; PULSE 81; RESP 18; TEMP 36.6; O2SAT 91; BMI 34.2
[2023-01-11 08:47] VITALS: BP 119/79; PULSE 90; RESP 21; O2SAT 96
[2023-01-11 08:49] VITALS: BP 119/79; PULSE 90; RESP 21; O2SAT 96
--- NOTE | 2023-01-11 08:59 | EXP.PAIN.PRO ---
Procedure Date: 01/11/23 Time: 08:35 Anesthesiologist:: Roberto Miller CRNA Complications:: None Pre-procedure Diagnosis:: Degenerative disc disease lumbar spine multilevels. Lumbar radiculopathy. Bilateral sacroiliitis. Post-procedure Diagnosis:: Same. Indications for Procedure:: Patient is a very pleasant 62-year-old female comes our clinic today for intrathecal pain pump interrogation refill. She is currently being managed with Dilaudid 1 mg/mL at 0.1460 mg today. Patient complaining of some increased pain in the lumbar area as well as bilateral hips. Patient did undergo bilateral sacroiliac joint injections in the recent past with minimal to no relief. I will increase her intrathecal dose by 5% today. Patient is chronic COPD on home oxygen 14/03. Patient recently had some hypotension episodes and has been seeing her PCP regarding this. Procedure Details:: Details of the procedure were explained to the patient. The patient taken to procedure room placed in sitting position. The area of the pump was cleansed using chlorhexidine as a cleansing solution. The pump was interrogated. The pump was accessed with ease using a 22-gauge inch and half needle. 6.5 mL of solution was withdrawn and discarded appropriately. The pump was then filled with 20 cc of Dilaudid 1 mg/mL. The pump was increased to 0.1533 mg/day. Patient tolerated procedure without difficulty. There are no complications. Plan and Disposition:: I have instructed the patient to call us anytime within the next 2 weeks to report any increase side effects or complications with intrathecal pain pump. Patient was discharged without incident.
[2023-01-11 09:00] VITALS: BP 112/40; PULSE 87; RESP 18; O2SAT 91
== END 2023-01-11 09:00 | disposition home or self-care (01) ==
PROVIDERS: PCP Family Medicine; Visit Provider Nurse Anesthetist, Certified Registered
DX: M51.16 Intervertebral disc disorders with radiculopathy, lumbar region (principal); M46.1 Sacroiliitis, not elsewhere classified; Z45.1 Encounter for adjustment and management of infusion pump
CPT/HCPCS: 62370

== ENCOUNTER → 2023-01-12 14:30 | Outpatient (CLI) | payer MEDICARE, SELFPAY ==
[2023-01-12 16:13] LABS: Basophils % 0.4 % (0.1-2.0); Eosinophils # 0.2 K/mm3 (0.0-0.4); Hematocrit 40.5 % (37.0-47.0); Hemoglobin 11.6 g/dL (12.2-16.2); Lymphocytes # 1.5 K/mm3 (0.7-4.5); Lymphocytes % 14.9 % (10-50); Mean Corpuscular HGB Conc 28.7 g/dL (31.8-35.4); Mean Corpuscular Hemoglobin 21.6 pg (27.0-31.2); Mean Corpuscular Volume 75.2 fl (81-99); Mean Platelet Volume 9.6 fl (7.4-10.4); Monocytes # 0.6 K/mm3 (0.1-1.0); Monocytes % 6.3 % (1.7-9.3); Neutrophils # 7.7 K/mm3 (1.8-7.8); Neutrophils % 76.5 % (37.0-80.0); Platelet Count 337 K/mm3 (142-424); Red Blood Count 5.38 M/mm3 (4.20-5.40); Red Cell Distribution Width 19.8 % (11.5-17.5); White Blood Count 10.1 K/mm3 (4.8-10.8)
[2023-01-12 17:11] LABS: Anion Gap 16.3 mEq/L (5-15); Blood Urea Nitrogen 7 mg/dl (7-17); Calcium 8.5 mg/dl (8.4-10.2); Carbon Dioxide 31 mmol/L (22.0-30.0); Chloride 93 mmol/L (98-107); Estimated Glomerular Filt Rate 102 ml/min (>60); GFR (African American) 123 ML/MIN (>60); Glucose 73 mg/dl (74-100); Potassium 5.3 mmoL/L (3.5-5.1); Sodium 135 mmol/L (136-145)
[2023-01-12 17:17] LABS: NT Pro Brain Natriuretic Pep. 840 pg/mL (0-125)
== END ==
PROVIDERS: PCP Family Medicine; Visit Provider Family Medicine
DX: R60.9 Edema, unspecified (principal); I50.30 Unspecified diastolic (congestive) heart failure
CPT/HCPCS: 80048; 83880; 85025

== ENCOUNTER → 2023-01-27 12:43 | Outpatient (CLI) | payer MEDICARE, SELFPAY | PROVIDERS: PCP Family Medicine; Visit Provider Specialist | DX: G47.33 Obstructive sleep apnea (adult) (pediatric) (principal); Z99.89 Dependence on other enabling machines and devices | CPT/HCPCS: 94762 ==

== ENCOUNTER → 2023-02-01 07:58 | Outpatient (CLI) | payer MEDICARE, SELFPAY ==
--- NOTE | 2023-02-01 08:05 | XR_ITS ---
FINAL REPORT CLINICAL HISTORY: productive cough/SOA COMPARISON: 10/26/2022 FINDINGS: Two views of the chest were obtained. Hyperinflation compatible with chronic obstructive pulmonary disease is present. The heart size and pulmonary vascularity are within normal limits. The mediastinum is normal. Mild bibasilar atelectasis versus scar is present. There is improved aeration in the right lung base since the prior chest x-ray of October 26. Bilateral apical scarring is present.. There is no pneumothorax. The bony thorax is intact. IMPRESSION: Chronic obstructive pulmonary disease. Bibasilar atelectasis versus scar, with improved aeration in the right base since October. Reviewed, Interpreted and Dictated by Brendan Multani III, MD Transcribed by Francisca Lang Authenticated and . [facility]
--- NOTE | 2023-02-01 08:05 | MM_ITS ---
PROCEDURE INFORMATION: Exam: MG Bilateral Screening 3D Mammography Exam date and time: 02/01/2023 7:54 AM Age: 62 years old Clinical indication: Screening mammogram TECHNIQUE: Imaging protocol: Bilateral Screening tomosynthesis and 2D mammography including computer-aided detection (CAD) when performed. Limited assessment due to difficulty positioning the patient. The patient is in a wheelchair and cannot stand for long periods of time. Multiple attempt performed with best images submitted COMPARISON: 1. MG MM DIG SCREENING MAMM BI W/CAD 06/16/2021 3:27 PM 2. MG MM DIG MAMM DX UNILAT LT CAD 09/02/2020 2:42 PM 3. MG MM DIG SCREENING MAMM BI W/CAD 07/16/2020 2:35 PM 4. MG MM DIG MAMM DX UNILAT LT CAD 01/31/2020 1:47 PM FINDINGS: MAMMOGRAPHY: Breast composition: There are scattered areas of fibroglandular density. Mass: None. Architectural distortion: No new or suspicious architectural distortion. Calcifications: There are benign calcifications related to the several areas of fat necrosis bilaterally. Asymmetric density: No new or suspicious asymmetric density is present Skin thickening: None. Axillary adenopathy: None. IMPRESSION: No mammographic evidence of malignancy. Recommend annual screening mammography unless otherwise clinically indicated. ASSESSMENT: BI-RADS category 2: Benign
== END ==
LOC: RAD 07:59
PROVIDERS: PCP Family Medicine; Visit Provider Family Medicine
DX: Z12.31 Encounter for screening mammogram for malignant neoplasm of breast (principal); R05.8 Other specified cough
CPT/HCPCS: 71046; 77063; 77067

== ENCOUNTER 2023-03-22 12:36 | Day surgery (SDC) | payer MEDICARE, SELFPAY ==
[2023-03-22 12:45] VITALS: BP 133/61; PULSE 80; RESP 16; O2SAT 95; BMI 31.8
--- NOTE | 2023-03-22 12:55 | P.PCN_ITS ---
Procedure Date: 03/22/23 Time: 12:30 Anesthesiologist:: Roberto Miller CRNA Complications:: None Pre-procedure Diagnosis:: Degenerative disc disease lumbar spine multilevels. Lumbar radiculopathy. Post-procedure Diagnosis:: Same Indications for Procedure:: Patient is a very pleasant 62-year-old female comes our clinic today for intrathecal pain pump interrogation refill. She is currently being managed with Dilaudid 1 mg/mL at 0.1533 milligrams per day. Patient complaining of right p osterior hip pain as well as right lower lumbar pain. She states pain is significant with standing, flexion and extension. She rates her pain 8/10 Procedure Details:: Details the procedure explained to the patient. The patient taken the procedure room placed in the sitting position. The area of the pump was cleansed using chlorhexidine as a cleansing solution. The pump is interrogated. The pump was accessed with ease using a 22-gauge inch and half needle. 8.5 mL solution was withdrawn and discarded appropriately. The pump was filled with 20 cc of a solution containing Dilaudid 1 mg/mL. Patient requesting increase in her overall pump rate. We will increase her by 20%. Her new rate will be 0.1840 mg/day Plan and Disposition:: Patient was discharged without incident.
[2023-03-22 13:00] VITALS: BP 143/52; PULSE 112; RESP 18; O2SAT 95
== END 2023-03-22 13:00 | disposition home or self-care (01) ==
PROVIDERS: PCP Family Medicine; Visit Provider Nurse Anesthetist, Certified Registered
DX: M51.16 Intervertebral disc disorders with radiculopathy, lumbar region (principal); M25.551 Pain in right hip
CPT/HCPCS: 95991

== ENCOUNTER → 2023-03-28 17:19 | Outpatient (CLI) | payer MEDICARE, SELFPAY ==
[2023-03-28 16:36] LABS: Basophils % 0.2 % (0.1-2.0); Eosinophils # 0.2 K/mm3 (0.0-0.4); Eosinophils % 1.6 % (0.1-12.0); Hematocrit 40.4 % (37.0-47.0); Hemoglobin 11.6 g/dL (12.2-16.2); Lymphocytes # 1.1 K/mm3 (0.7-4.5); Lymphocytes % 9.3 % (10-50); Mean Corpuscular HGB Conc 28.6 g/dL (31.8-35.4); Mean Corpuscular Volume 73.4 fl (81-99); Mean Platelet Volume 10.1 fl (7.4-10.4); Monocytes # 0.9 K/mm3 (0.1-1.0); Monocytes % 7.2 % (1.7-9.3); Neutrophils # 9.8 K/mm3 (1.8-7.8); Neutrophils % 81.7 % (37.0-80.0); Platelet Count 317 K/mm3 (142-424); Red Blood Count 5.51 M/mm3 (4.20-5.40); Red Cell Distribution Width 19.4 % (11.5-17.5)
[2023-03-28 16:46] LABS: Alanine Aminotransferase 14 U/L (12-78); Albumin Level 3.2 g/dl (3.5-5.0); Albumin/Globulin Ratio 1.1 (1.1-1.8); Alkaline Phosphatase 119 U/L (38-126); Anion Gap 8.4 mEq/L (5-15); Aspartate Amino Transferase 21 U/L (14-36); Bilirubin,Total 0.6 mg/dl (0.2-1.3); Blood Urea Nitrogen 6 mg/dl (7-17); Calcium 8.8 mg/dl (8.4-10.2); Carbon Dioxide 32 mmol/L (22.0-30.0); Chloride 102 mmol/L (98-107); Chol/HDL Ratio 1.8 (1-3.5); Cholesterol 98 mg/dl (140-200); Estimated Glomerular Filt Rate 125 ml/min (>60); GFR (African American) 152 ML/MIN (>60); Glucose 90 mg/dl (74-100); HDL Cholesterol 56 mg/dl (40-60); Potassium 4.4 mmoL/L (3.5-5.1); Sodium 138 mmol/L (136-145); Total Protein,Serum 6.2 g/dl (6.3-8.2); Triglycerides 73 mg/dl (30-150); VLDL Cholesterol 15 mg/dL (0-40)
[2023-03-28 16:57] LABS: Direct LDL Cholesterol < 30.00 mg/dL (100-129)
[2023-03-28 17:13] LABS: Hemoglobin A1C 5.4 % (4.0-6.0)
[2023-03-28 17:15] LABS: Thyroid Stimulating Hormone 0.49 uIU/mL (0.465-4.68)
== END ==
PROVIDERS: PCP Family Medicine; Visit Provider Family Medicine
DX: E03.9 Hypothyroidism, unspecified (principal); I10 Essential (primary) hypertension; E11.9 Type 2 diabetes mellitus without complications; Z00.00 Encounter for general adult medical examination without abnormal findings
CPT/HCPCS: 80053; 80061; 83036; 84443; 85025

== ENCOUNTER → 2023-04-04 17:17 | Outpatient (CLI) | payer MEDICARE, SELFPAY | PROVIDERS: PCP Family Medicine; Visit Provider Family Medicine | DX: R05.9 Cough, unspecified (principal); J02.9 Acute pharyngitis, unspecified; R09.81 Nasal congestion | CPT/HCPCS: 87635 ==

== ENCOUNTER → 2023-04-19 07:37 | Outpatient (CLI) | payer MEDICARE, SELFPAY ==
--- NOTE | 2023-04-19 08:30 | PC.NURSE ---
PFT completed without incident. Pt given Albuterol 0.083% via HHN, per protocol, Pt tolerated tx well.
== END ==
PROVIDERS: PCP Family Medicine; Visit Provider Internal Medicine Pulmonary Disease
DX: R06.02 Shortness of breath (principal)
CPT/HCPCS: 94060; 94726; 94729

== ENCOUNTER → 2023-04-21 09:48 | Outpatient (CLI) | payer MEDICARE, SELFPAY ==
--- NOTE | 2023-04-21 09:48 | CT_ITS ---
FINAL REPORT CLINICAL HISTORY: lung cancer screening smoker, 2 ppd x 45 years copd, emphysema, CHF COMPARISON: 04/15/2022 FINDINGS: CT CHEST LOW DOSE SCREENING HISTORY: Screening exam for lung cancer. Current smoker, 90 pack year smoking history DOSE: CTDIvol: 2.9 mGy, DLP: 110.72 mGy*cm COMPARISON: 04/15/2022. TECHNIQUE: Axial CT without IV contrast administration using low dose protocol FINDINGS: There are advanced changes of centrilobular emphysema also noted on the prior CT. There is a 5 mm nodule in the anterior margin of the major fissure, stable since the prior CT. There is a 6 mm nodule along the fissure in the left lung field best seen on image #42, also stable. No new infiltrates are identified, and no new nodules are seen. No pleural or pericardial effusion is seen . No adenopathy or mass lesion is present . IMPRESSION: Stable CT of the chest since March 2022. No new nodules or infiltrates are seen. Advanced centrilobular emphysema. LUNG RADS CATEGORY 2 RECOMMENDATION: 12 month LDCT follow up Reviewed, Interpreted and Dictated by Sumeet Floyd MD Transcribed by Francisca Lang Authenticated and [facility]
== END ==
PROVIDERS: PCP Family Medicine; Visit Provider Internal Medicine Pulmonary Disease
DX: Z87.891 Personal history of nicotine dependence (principal); Z12.2 Encounter for screening for malignant neoplasm of respiratory organs
CPT/HCPCS: 71271

== ENCOUNTER → 2023-05-10 11:06 | Outpatient (CLI) | payer MEDICARE, SELFPAY ==
--- NOTE | 2023-05-10 11:12 | XR_ITS ---
FINAL REPORT CLINICAL HISTORY: Foot Pain FINDINGS: Right foot Three views were obtained. There is no acute fracture or dislocation. There is moderate joint space narrowing of the 1st metatarsophalangeal. Moderate hallux valgus deformity is identified. There is a small plantar spur. No soft tissue abnormality is identified. IMPRESSION: Degenerative changes as above. Reviewed, Interpreted and Dictated by Sumeet Floyd MD Transcribed by Lacy Graham Authenticated and [facility]
--- NOTE | 2023-05-10 11:12 | XR_ITS ---
FINAL REPORT CLINICAL HISTORY: Foot Pain FINDINGS: Left foot Three views were obtained. There is no acute fracture or dislocation. There is moderate joint space narrowing of the 1st metatarsophalangeal. Moderate hallux valgus deformity is identified. There is a small plantar spur. No soft tissue abnormality is identified. IMPRESSION: Degenerative changes as above. Reviewed, Interpreted and Dictated by Sumeet Floyd MD Transcribed by Lacy Graham Authenticated and [facility]
== END ==
LOC: RAD 11:07
PROVIDERS: PCP Family Medicine; Visit Provider Nurse Practitioner Family
DX: M79.672 Pain in left foot (principal); M79.671 Pain in right foot
CPT/HCPCS: 73630

== ENCOUNTER → 2023-05-11 14:00 | Outpatient (POV) | payer MEDICARE, SELFPAY ==
--- NOTE | 2023-05-11 14:50 | EXP.PAIN.PRO ---
Procedure Date: 05/11/23 Time: 14:51 Anesthesiologist:: Georgiana Zelaya APRN Complications:: None Pre-procedure Diagnosis:: Degenerative disc disease of lumbar spine with lumbar radiculopathy symptoms, right knee pain Post-procedure Diagnosis:: Same Indications for Procedure:: Patient is a pleasant 62-year-old female who presents today for follow-up. We are currently treating the patient for degenerative disc disease of lumbar spine with lumbar radiculopathy symptoms, right knee pain. Today she rates her pain a 10 out of 10. Patient denies any new trauma or injury. She denies any change location or type of pain she experiences. Patient does state that she feels like she continues to have significant low back and right knee pain. Patient does describe her pain as a constant aching, throbbing sensation that is worse with increased activity. Patient does state that her knee pain also feels like her right leg is going to give out and she frequently has more trouble getting up to ambulate due to this. Patient does state that her pain interferes with her ability perform activities of daily living such as cooking and cleaning. Patient does see Dr. Armando Fernando for her right knee pain. She states that her last visit he had not discussed surgical intervention however was just doing the injections. Patient does state that she is scheduled for a follow-up appointment with him coming up in the next month she thinks. She is currently managed with Dilaudid 1 mg/mL with a daily dose of 0.184 mg/day. Patient denies any side effects from this medication. She is also managed with pregabalin 150 mg twice a day and alprazolam 0.5 mg twice a day from her PCP. Her Je is [id number]. Its been reviewed and appropriate. Physical Exam: General: Alert and oriented x3, no acute distress, pleasant and cooperative Lungs: Respirations even and unlabored, symmetrical chest expansion Eyes: PERRL Musculoskeletal: Flexion and extension of lumbar [spine] somewhat guarded secondary to pain, [antalgic gait noted] Neurological: Speech clear, no gross sensory deficit Procedure Details:: Informed consent was obtained and the risk and benefits of the procedure were explained to the patient. Patient was taken to the procedure room where noninvasive monitoring was placed including noninvasive blood pressure cuff and pulse oximeter. Patient's pump was interrogated and was reprogrammed to Dilaudid 0.202 mg/day. The patient tolerated the procedure well with no complications. Plan and Disposition:: I have counseled the patient that we can do right knee injections including an intra-articular injection or a trigger point. Patient would like to wait until after she has her follow-up with orthopedics. I have counseled her if anything changes she can contact us between now and her next visit. Patient tolerated her intrathecal increase with no complications and was discharged neurologically intact. We will see the patient back in the clinic at the next intrathecal refill. Patient has been instructed to contact the clinic with any concerns before the next appointment. Dr. Shields has reviewed this note and agrees with this plan of care. This note was dictated using voice recognition software and make contain errors or omissions. -- It Is medically necessary for this patient to continue to have their intrathecal pump refilled at regular intervals. This patient had an intrathecal pain pump implanted after meeting criteria of chronic intractable pain for greater than 3 months and failing conservative treatments. Patient has committed and been compliant to the treatment plan and all planned follow up care. Since implantation of the intrathecal pain pump, the patient has had decreased pain and been more functional. Oral medications have been reduced including intake of oral opioids. Patient continues to do well with intrathecal therapy with decrease in pain symptoms and increase in functional statu
[2023-05-11 15:43] VITALS: BP 123/57; PULSE 96; RESP 18; O2SAT 92; BMI 31.1
== END | disposition home or self-care (01) ==
PROVIDERS: PCP Family Medicine; Visit Provider Nurse Practitioner Family
DX: M51.16 Intervertebral disc disorders with radiculopathy, lumbar region (principal); M25.561 Pain in right knee; Z97.8 Presence of other specified devices
CPT/HCPCS: 62368; 99213; G0463

== ENCOUNTER → 2023-05-17 13:15 | Outpatient (CLI) | payer MEDICARE, SELFPAY ==
--- NOTE | 2023-05-17 13:19 | XR_ITS ---
FINAL REPORT CLINICAL HISTORY: foot pain, ankle pain FINDINGS: AP, oblique, and lateral views of the left ankle were obtained. There is no prior exam for comparison. There is no fracture or dislocation. The ankle mortise is intact. Soft tissues are normal. IMPRESSION: No acute osseous abnormality of the left ankle. Reviewed, Interpreted and Dictated by Tamie Thibodeaux MD Transcribed by Bubba Desai Authenticated and [facility]
--- NOTE | 2023-05-17 13:19 | XR_ITS ---
FINAL REPORT CLINICAL HISTORY: foot pain, ankle pain FINDINGS: AP, oblique, and lateral views of the right ankle were obtained. There is no prior exam for comparison. There is no fracture or dislocation. The ankle mortise is intact. Mild soft tissue edema is greatest laterally. IMPRESSION: No acute osseous abnormality of the right ankle. Reviewed, Interpreted and Dictated by Tamie Thibodeaux MD Transcribed by Bubba Desai Authenticated and [facility]
== END ==
LOC: RAD 13:16
PROVIDERS: PCP Family Medicine; Visit Provider Nurse Practitioner Family
DX: M25.571 Pain in right ankle and joints of right foot (principal); M25.572 Pain in left ankle and joints of left foot; M79.671 Pain in right foot; M79.672 Pain in left foot
CPT/HCPCS: 73610

== ENCOUNTER 2023-05-24 14:17 | Day surgery (SDC) | payer MEDICARE, SELFPAY ==
[2023-05-24 14:22] VITALS: BP 126/79; PULSE 89; RESP 18; TEMP 36.3; O2SAT 89; BMI 32.9
--- NOTE | 2023-05-24 14:27 | EXP.PAIN.PRO ---
Procedure Date: 05/24/23 Time: 14:25 Anesthesiologist:: Roberto Miller CRNA Complications:: None Pre-procedure Diagnosis:: Osteoarthritis right knee. Effusion right knee. Chronic right knee pain. Post-procedure Diagnosis:: Same. Indications for Procedure:: Patient is a very pleasant 62-year-old female comes our clinic today for a right intra-articular knee aspiration and injection of cortisone. Patient has chronic right knee pain she describes as constant, dull, aching. Patient had recent orthopedic surgery visit and no surgery was recommended at this time. Patient rates her pain 7/10 in the right knee. Procedure Details:: Details of the procedure explained to the patient. Patient was taken to procedure room placed in the sitting position. The area over the anterior knee joint was cleaned using chlorhexidine as a cleansing solution. Using a 25-gauge inch and half needle the skin and subcutaneous tissue was anesthetized over the inferior lateral border of the patella. At this time an 18-gauge inch and a half needle was used to access the right knee joint. 12 cc of a clear yellow solution was aspirated from the knee without difficulty. At this time 40 mg of Depo-Medrol +4 cc of 0.25% Marcaine +1% lidocaine was injected into the right knee joint. Patient tolerated procedure without difficulty. There are no complications. Plan and Disposition:: Patient was discharged without incident.
[2023-05-24 14:33] VITALS: BP 137/75; PULSE 82; RESP 18; O2SAT 89
== END 2023-05-24 14:33 | disposition home or self-care (01) ==
PROVIDERS: PCP Family Medicine; Visit Provider Nurse Anesthetist, Certified Registered
DX: M17.11 Unilateral primary osteoarthritis, right knee (principal); M25.461 Effusion, right knee; M25.561 Pain in right knee; G89.29 Other chronic pain
CPT/HCPCS: 20610; J1040

== ENCOUNTER → 2023-06-23 13:24 | Outpatient (CLI) | payer MEDICARE, SELFPAY ==
--- NOTE | 2023-06-23 13:45 | CA_ITS ---
FINAL REPORT TECHNIQUE: Color Doppler, duplex Doppler and barone scale sonography of the bilateral neck vasculature was performed. Velocities were measured in the carotid arteries. Stenosis evaluation based on velocity criteria. CLINICAL HISTORY: WILLIAM,SMOKER,HLD COMPARISON: None FINDINGS: The peak systolic velocity of the right common carotid artery is 76 cm/sec and internal carotid artery 114 cm/sec. The diastolic velocity in the internal carotid artery is 21 cm/sec. The ICA/CCA ratio is 1.5. Visually, a mild to moderate amount of plaque is seen. These findings are consistent with less than 50% stenosis. The external carotid artery is patent. The right vertebral artery is patent with antegrade flow. The peak systolic velocity of the left common carotid artery is 98 cm/sec and internal carotid artery 155 cm/sec. The diastolic velocity in the internal carotid artery is 40 cm/sec. The ICA/CCA ratio is 1.6. Visually, a mild to moderate amount of plaque is see.. These findings are consistent with less than 50% stenosis. The external carotid artery is patent. The left vertebral artery is patent with antegrade flow. IMPRESSION: No evidence of significant carotid stenosis. Bilateral patent vertebral arteries. If indicated, CTA or MRA could further evaluate. Reviewed, Interpreted and Dictated by Brendan Multani III, MD Transcribed by Francisca Lang Authenticated and [facility]
== END ==
LOC: RT 13:25
PROVIDERS: PCP Family Medicine; Visit Provider Nurse Practitioner Family
DX: I65.23 Occlusion and stenosis of bilateral carotid arteries (principal); Z72.0 Tobacco use
CPT/HCPCS: 93880

== ENCOUNTER → 2023-06-24 11:50 | Outpatient (CLI) | payer MEDICARE, SELFPAY ==
[2023-06-24 18:56] LABS: Alanine Aminotransferase 15 U/L (12-78); Albumin Level 3.3 g/dl (3.5-5.0); Albumin/Globulin Ratio 1.3 (1.1-1.8); Alkaline Phosphatase 91 U/L (38-126); Anion Gap 11.2 mEq/L (5-15); Aspartate Amino Transferase 27 U/L (14-36); Bilirubin,Total 0.5 mg/dl (0.2-1.3); Blood Urea Nitrogen 8 mg/dl (7-17); Calcium 8.6 mg/dl (8.4-10.2); Carbon Dioxide 34 mmol/L (22.0-30.0); Chloride 92 mmol/L (98-107); Estimated Glomerular Filt Rate 102 ml/min (>60); GFR (African American) 123 ML/MIN (>60); Globulin 2.5 g/dL (1.3-3.2); Glucose 107 mg/dl (74-100); Magnesium 1.8 mg/dl (1.6-2.3); Potassium 4.2 mmoL/L (3.5-5.1); Sodium 133 mmol/L (136-145); Total Protein,Serum 5.8 g/dl (6.3-8.2)
[2023-06-24 18:59] LABS: Basophils % 0.2 % (0.1-2.0); Eosinophils # 0.1 K/mm3 (0.0-0.4); Eosinophils % 0.8 % (0.1-12.0); Hematocrit 39.7 % (37.0-47.0); Hemoglobin 11.9 g/dL (12.2-16.2); Lymphocytes # 1.2 K/mm3 (0.7-4.5); Lymphocytes % 12.9 % (10-50); Mean Corpuscular HGB Conc 29.9 g/dL (31.8-35.4); Mean Corpuscular Hemoglobin 22.7 pg (27.0-31.2); Mean Corpuscular Volume 75.7 fl (81-99); Mean Platelet Volume 9.8 fl (7.4-10.4); Monocytes # 0.6 K/mm3 (0.1-1.0); Monocytes % 6.3 % (1.7-9.3); Neutrophils # 7.4 K/mm3 (1.8-7.8); Neutrophils % 79.8 % (37.0-80.0); Platelet Count 281 K/mm3 (142-424); Red Blood Count 5.25 M/mm3 (4.20-5.40); Red Cell Distribution Width 19.6 % (11.5-17.5); White Blood Count 9.3 K/mm3 (4.8-10.8)
== END ==
PROVIDERS: PCP Family Medicine; Visit Provider Nurse Practitioner Family
DX: R53.83 Other fatigue (principal)
CPT/HCPCS: 80053; 83735; 85025

== ENCOUNTER → 2023-06-29 08:18 | Outpatient (POV) | payer MEDICARE, SELFPAY ==
--- NOTE | 2023-06-29 08:33 | EXP.PAIN.SOA ---
[facility] Pain Management SOAP Note Subjective:: Patient is a pleasant 62-year-old female who presents today for follow-up of right intra-articular knee injection on 05/24/2023. We are currently treating the patient for degenerative disc disease of lumbar spine with lumbar radiculopathy symptoms, right knee pain. Today she rates her pain a 10 out of 10. Patient denies any new trauma or injury. She does state that she had 2 days of 100% improvement following this injection. She states she was able to move around easier with decreased pain symptoms however today she states she is back to her baseline. She she states that she has does state that she feels like she continues to have significant low back and right knee pain. Patient does describe her pain as a constant aching, throbbing sensation that is worse with increased activity. Popping and cracking with movement with her knee. She states she is no longer going to the orthopedic doctor since we are able to do the same injections. Patient states the last time she did see him that he was not recommending any surgical intervention such as knee replacements. She states he did think it was all arthritis. She does state today that she is having more pain around her neck and shoulders and feels like it may be more stress related. She states she feels very tense and tender to touch. She states the pain can interfere with her ability perform activities of daily living. 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 She is currently managed with Dilaudid 1 mg/mL with a daily dose of 0.22 mg/day. Patient denies any side effects from this medication. She is also managed with pregabalin 150 mg twice a day and alprazolam 0.5 mg twice a day from her PCP. Her Je has been reviewed and appropriate. Review of Systems: General: No recent weight changes, no fever, no sleep disturbances Respiratory: No cough, no shortness of air, no recurring pulmonary infections Cardiovascular/peripheral vascular: No chest pain, no palpitations, no edema, no shortness of breath Gastrointestinal: No new onset incontinence, normal bowel movements reported Genitourinary: No new onset incontinence Musculoskeletal: Neck pain, shoulder pain Psychiatric: [Normal mood/affect] Neurological: [Denies weakness in extremities], [denies balance issues] Objective:: Physical Exam: General: Alert and oriented x3, no acute distress, pleasant and cooperative Lungs: Respirations even and unlabored, symmetrical chest expansion Eyes: PERRL Musculoskeletal: Flexion and extension of lumbar [spine] somewhat guarded secondary to pain, [antalgic gait noted] point tenderness noted along bilateral cervical paraspinous and bilateral trapezius muscles Neurological: Speech clear, no gross sensory deficit Assessment:: Degenerative disc disease of lumbar spine with lumbar radiculopathy symptoms, right knee pain, myofascial pain, neck pain, shoulder pain Plan:: Patient is experiencing point tenderness along her bilateral cervical paraspinous and bilateral trapezius during today's exam. I have discussed with patient that she may benefit from trigger point injections at this location. Risk and benefits were discussed with the patient and she would like to wait and see if it does get better over the next few days. I have counseled the patient that she can call and schedule this injection at a later date. I will also order the patient a compounded cream. Patient will contact our office for her next follow-up visit as needed. Patient has been instructed to contact the clinic with any concerns before the next appointment. Dr. Shields has reviewed this note and agrees with this plan of care. This note was dictated using voice recognition software and make contain errors or omissions. -- It Is medically necessary for this patient to continue to have their intrathecal pump refilled at regular intervals. 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
[2023-06-29 08:43] VITALS: BP 114/50; PULSE 85; RESP 18; O2SAT 95; BMI 30.7
== END ==
PROVIDERS: PCP Family Medicine; Visit Provider Nurse Practitioner Family
DX: M51.16 Intervertebral disc disorders with radiculopathy, lumbar region (principal); M25.561 Pain in right knee; M79.10 Myalgia, unspecified site; M54.2 Cervicalgia; M25.519 Pain in unspecified shoulder; Z97.8 Presence of other specified devices
CPT/HCPCS: 99212; G0463

== ENCOUNTER → 2023-07-04 08:38 | Outpatient (CLI) | payer MEDICARE, SELFPAY ==
[2023-07-04 17:41] LABS: Chloride 103 mmol/L (98-107); Potassium 4.3 mmoL/L (3.5-5.1); Sodium 135 mmol/L (136-145)
[2023-07-04 17:44] LABS: Blood Urea Nitrogen 4 mg/dl (7-17); Estimated Glomerular Filt Rate 101 ml/min (>60); GFR (African American) 123 ML/MIN (>60)
[2023-07-04 17:45] LABS: Anion Gap 7.3 mEq/L (5-15); Calcium 8.1 mg/dl (8.4-10.2); Carbon Dioxide 29 mmol/L (22.0-30.0); Glucose 97 mg/dl (74-100)
== END ==
PROVIDERS: PCP Nurse Practitioner Family; Visit Provider Nurse Practitioner Family
DX: E87.6 Hypokalemia (principal)
CPT/HCPCS: 80048

== ENCOUNTER → 2023-07-08 23:44 | Outpatient (CLI) | payer MEDICARE, SELFPAY | PROVIDERS: PCP Family Medicine; Visit Provider Family Medicine | DX: R05.9 Cough, unspecified (principal) | CPT/HCPCS: 87635 ==

== ENCOUNTER 2023-07-19 09:58 | Day surgery (SDC) | payer MEDICARE, SELFPAY ==
[2023-07-19 10:08] VITALS: BP 101/64; PULSE 85; RESP 16; TEMP 36.1; O2SAT 93; BMI 30.5
[2023-07-19 10:22] VITALS: BP 103/52; PULSE 84; RESP 16; O2SAT 93
--- NOTE | 2023-07-19 10:45 | EXP.PAIN.PRO ---
Procedure Date: 07/19/23 Time: 10:30 Anesthesiologist:: Roberto Miller CRNA Complications:: None Pre-procedure Diagnosis:: Myofascial pain bilateral cervical paraspinous muscles. Myofascial pain bilateral trapezius muscle. Post-procedure Diagnosis:: Same. Indications for Procedure:: Patient is a very pleasant 63-year-old female that comes our clinic today for trigger point injections bilateral cervical paraspinous muscles as well as bilateral trapezius muscles. Patient complains of pain in the posterior cervical spine as well as bilateral trapezius area as constant, dull, aching. Patient rates her pain 7/10. Procedure Details:: Details of the procedure explained to the patient. The patient taken the procedure room placed in the sitting position. The area over the posterior cervical spine and bilateral trapezius area was cleansed using chlorhexidine as a cleansing solution. Using a 25-gauge inch and half needle and a solution containing 0.25% Marcaine +1% lidocaine and 40 mg of Depo-Medrol. The bilateral inferior cervical paraspinous muscle was injected with 3 cc of the solution after negative aspiration. The same was carried out into separate areas of the bilateral trapezius muscle. Patient tolerated procedure without difficulty. There were no complications. Plan and Disposition:: Patient was discharged without incident. Patient complains of cervical neck pain that has been persistent for several months. She states that the pain radiates into her shoulders and arms. She is unable to complete physical therapy due to pain and respiratory status. She has tried and failed other conservative measures such as stretching, home exercise routine and OTC/topical medications. I will order a cervical spine CT today.
== END 2023-07-19 10:22 | disposition home or self-care (01) ==
LOC: SC.PAINP 09:59
PROVIDERS: PCP Family Medicine; Visit Provider Nurse Anesthetist, Certified Registered
DX: M79.18 Myalgia, other site (principal)
CPT/HCPCS: 20553; J1040

== ENCOUNTER → 2023-08-01 13:51 | Outpatient (CLI) | payer MEDICARE, SELFPAY ==
[2023-08-01 14:25] LABS: Basophils % 0.3 % (0.1-2.0); Eosinophils # 0.1 K/mm3 (0.0-0.4); Eosinophils % 1.1 % (0.1-12.0); Hematocrit 39.1 % (37.0-47.0); Hemoglobin 11.8 g/dL (12.2-16.2); Lymphocytes # 1.3 K/mm3 (0.7-4.5); Lymphocytes % 14.6 % (10-50); Mean Corpuscular HGB Conc 30.2 g/dL (31.8-35.4); Mean Corpuscular Hemoglobin 22.7 pg (27.0-31.2); Mean Corpuscular Volume 75.1 fl (81-99); Mean Platelet Volume 10.1 fl (7.4-10.4); Monocytes # 0.4 K/mm3 (0.1-1.0); Monocytes % 4.7 % (1.7-9.3); Neutrophils # 6.8 K/mm3 (1.8-7.8); Neutrophils % 79.3 % (37.0-80.0); Platelet Count 206 K/mm3 (142-424); Red Blood Count 5.21 M/mm3 (4.20-5.40); Red Cell Distribution Width 20.2 % (11.5-17.5); White Blood Count 8.6 K/mm3 (4.8-10.8)
[2023-08-01 14:40] LABS: Chloride 98 mmol/L (98-107)
[2023-08-01 14:41] LABS: Potassium 4.1 mmoL/L (3.5-5.1); Sodium 135 mmol/L (136-145)
[2023-08-01 14:43] LABS: Alanine Aminotransferase 16 U/L (12-78); Anion Gap 6.1 mEq/L (5-15); Aspartate Amino Transferase 19 U/L (14-36); Bilirubin,Unconjugated 0.3 mg/dL (0.0-1.1); Blood Urea Nitrogen 9 mg/dl (7-17); Carbon Dioxide 35 mmol/L (22.0-30.0); Cholesterol 101 mg/dl (140-200); Estimated Glomerular Filt Rate 85 ml/min (>60); GFR (African American) 103 ML/MIN (>60); Triglycerides 83 mg/dl (30-150); VLDL Cholesterol 17 mg/dL (0-40)
[2023-08-01 14:44] LABS: Albumin Level 3.3 g/dl (3.5-5.0); Alkaline Phosphatase 113 U/L (38-126); Bilirubin,Direct 0.2 mg/dl (0.0-0.4); Bilirubin,Indirect 0.3 mg/dL (0.0-0.9); Bilirubin,Total 0.5 mg/dl (0.2-1.3); Calcium 8.2 mg/dl (8.4-10.2); Chol/HDL Ratio 1.5 (1-3.5); Glucose 102 mg/dl (74-100); HDL Cholesterol 67 mg/dl (40-60)
[2023-08-01 14:55] LABS: Direct LDL Cholesterol 35.05 mg/dL (100-129)
[2023-08-01 15:01] LABS: Free T4 (Free Thyroxine) 1.06 ng/dl (0.78-2.19)
[2023-08-01 15:14] LABS: Thyroid Stimulating Hormone 1.39 uIU/mL (0.465-4.68)
== END ==
PROVIDERS: PCP Family Medicine; Visit Provider Nurse Practitioner
DX: E78.5 Hyperlipidemia, unspecified (principal); G47.33 Obstructive sleep apnea (adult) (pediatric); I11.0 Hypertensive heart disease with heart failure; I25.10 Atherosclerotic heart disease of native coronary artery without angina pectoris; I50.30 Unspecified diastolic (congestive) heart failure; I67.2 Cerebral atherosclerosis; J44.9 Chronic obstructive pulmonary disease, unspecified; R06.09 Other forms of dyspnea; Z86.73 Personal history of transient ischemic attack (TIA), and cerebral infarction without residual deficits; Z72.0 Tobacco use
CPT/HCPCS: 36415; 80048; 80061; 80076; 84439; 84443; 85025

== ENCOUNTER → 2023-08-04 13:39 | Outpatient (CLI) | payer MEDICARE, SELFPAY ==
--- NOTE | 2023-08-04 13:43 | CT_ITS ---
FINAL REPORT TECHNIQUE: Axial images were obtained of the cervical spine by computed tomography. Coronal and sagittal reconstruction process performed. This study was performed with techniques to keep radiation doses as low as reasonably achievable (ALARA). Individualized dose reduction techniques using automated exposure control or adjustment of mA and/or kV according to the patient''s size were employed. CLINICAL HISTORY: NECK PAIN COMPARISON: None FINDINGS: There is abnormal loss of height at C5-6 and C6-7. There is minimal spondylolisthesis of C5 on C6. Facets are properly aligned. Limited images of the lung apices demonstrate advanced changes of centrilobular emphysema with biapical pleural-parenchymal scarring. IMPRESSION: Chronic changes in the cervical spine without acute bony abnormality. Reviewed, Interpreted and Dictated by Sumeet Floyd MD Transcribed by Joslyn Ortiz Authenticated and [facility]
== END ==
PROVIDERS: PCP Family Medicine; Visit Provider Nurse Practitioner Family
DX: M54.2 Cervicalgia (principal)
CPT/HCPCS: 72125

== ENCOUNTER → 2023-08-04 14:24 | Outpatient (POV) | payer MEDICARE, SELFPAY ==
[2023-08-04 14:46] VITALS: BP 118/52; PULSE 82; RESP 18; O2SAT 92; BMI 30.5
--- NOTE | 2023-08-04 15:05 | EXP.PAIN.SOA ---
[facility] Pain Management SOAP Note Subjective:: Patient is a pleasant 63-year-old female who presents today for follow-up. We are currently treating the patient for degenerative disc disease of lumbar spine with lumbar radiculopathy symptoms, right knee pain. Today she rates her pain an 8 out of 10. Patient denies any new trauma or injury or any change to location or type of pain she experiences. Patient does state that she had her cervical spine CT today and that previously the trigger point injection she got back on 07/19/2023 did help and is still helping. Today she states that she has continued fatigue. She states that she feels tired all the time and ran down. Patient states over the last month or so she has had where her doctor took her off of 3 blood pressure medications and that she did switch from a CPAP to a BiPAP. Patient does feel like she was doing better previously and that she was sleeping better through the night and had more energy during the day and did not take naps. Patient states that even the smallest thing now will wear her out where she has to go lie down. Patient is currently managed with intrathecal Dilaudid 1 mg/mL with a daily dose of 0.26 mg/day. She denies any side effects from this medication. Patient is also prescribed pregabalin 150 mg twice a day and alprazolam 0.5 mg twice a day from her primary care provider. Her Je has been reviewed and is appropriate. Review of Systems: General: No recent weight changes, no fever, no sleep disturbances Respiratory: No cough, no shortness of air, no recurring pulmonary infections Cardiovascular/peripheral vascular: No chest pain, no palpitations, no edema, no shortness of breath Gastrointestinal: No new onset incontinence, normal bowel movements reported Genitourinary: No new onset incontinence Musculoskeletal: Neck pain, fatigue Psychiatric: [Normal mood/affect] Neurological: [Denies weakness in extremities], [denies balance issues] Objective:: Physical Exam: General: Alert and oriented x3, no acute distress, pleasant and cooperative Lungs: Respirations even and unlabored, symmetrical chest expansion Eyes: PERRL Musculoskeletal: Flexion and extension of cervical [spine] somewhat guarded secondary to pain, [antalgic gait noted] Neurological: Speech clear, no gross sensory deficit Assessment:: Degenerative disc disease of lumbar spine with lumbar radiculopathy symptoms, right knee pain, neck pain with cervical radiculopathy symptoms Plan:: Patient continues to experience pain at multiple locations. I have reviewed over with the patient that I think it would be beneficial for her to talk to Dr. Louie's office regarding how she has been doing on her sleeping and discuss if any additional changes need to be made. Patient did states she had recent lab work done at her primary care provider. I have counseled the patient due to having her CT done today that we will not have the results and that I will plan on following up with her next week to review the findings. Patient states she does have a few appointments already and that she will call our office to make this appointment. Patient is an [facility] at home refill client and is scheduled for her next intrathecal refill on August 10. Patient has been instructed to contact the clinic with any concerns before the next appointment. Dr. Shields has reviewed this note and agrees with this plan of care. This note was dictated using voice recognition software and make contain errors or omissions. -- It Is medically necessary for this patient to continue to have their intrathecal pump refilled at regular intervals. This patient had an intrathecal pain pump implanted after meeting criteria of chronic intractable pain for greater than 3 months and failing conservative treatments. Patient has committed and been compliant to the treatment plan and all planned follow up care. Since implantation of the intrathecal pain pump, the patient has had decreased brianda
== END ==
LOC: SC.PAIN 14:25
PROVIDERS: PCP Family Medicine; Visit Provider Nurse Practitioner Family
DX: M51.16 Intervertebral disc disorders with radiculopathy, lumbar region (principal); M25.561 Pain in right knee; M54.12 Radiculopathy, cervical region; Z97.8 Presence of other specified devices
CPT/HCPCS: 72125; 99212; G0463

== ENCOUNTER → 2023-08-09 11:11 | Outpatient (CLI) | payer MEDICARE, SELFPAY ==
--- NOTE | 2023-08-09 | CA_ITS ---
APPROVED REPORT Exam: Pharmacologic Technologist: Marilynn Dotson, Ht: 5 ft 11 in Wt: 219 lbs BSA: 2.19 m2 HR: 78 bpm BP: 142/73 mmHg Rhythm: NSR Medical History Medications: Omeprazole,,,,, Alprazolam,,,,, Potassium Chloride,,,,, Aspirin,,,,, Atorvastatin,,,,, Pramipexole,,,,, Duoneb,,,,, Albuterol,,,,, Acetaminophen,,,,, Vit B12,,,,, DilaUDID,,,,, DiPHENHYDRAMINE,,,,, Cardiac Risk Factors: HTN, Hyperlipidemia, Smoking Stress Test Details Test: LEXISCAN HR Resting HR: 76 bpm Max Heart Rate (APMHR): 158 bpm Max HR Achieved: 91 bpm Target HR (85% APMHR): 134 bpm % of APMHR: 58 Recovery HR: 80 bpm BP Resting BP: 142/73 mmHg Max BP: 144/61 mmHg Recovery BP: 128.0/73.0 mmHg ECG Resting ECG: NSR, T-wave changes in septal leads Stress ECG: No significant ST changes Arrhythmia: Frequent PVCs Clinical Exercise duration: 04:00 min Highest Stage Achieved: Exercise capacity: 1.0 METs Stress ECG Conclusion During lexiscan pt experinced dyspnea, headache, and nausea. Frequent PVCs noted. No significant ST changes CONCLUSION EKG portion of the test is unremarkable due to lexiscan infusion. Myoview images are reported separately. Of note,the patient developed frequent PVCs after lexiscan administration. Test Summary REST . . . . . . . Sitting REST 01:21 . . 76 . 142/ 73 . . Stage 1 01:00 . . 86 . . . . Stage 2 01:00 . . 86 . 138/ 66 . . Stage 3 01:00 . . 81 . 134/ 72 . . Stage 4 01:00 . . 79 . 144/ 61 . Stop exercise at 04:00 RECOVERY 01:00 . . 81 . . . . RECOVERY 01:44 . . 80 . 128/ 73 . . Electronically signed by : Isabel Valladares MD 08/13/2023 18:06:57
--- NOTE | 2023-08-09 11:12 | CA_ITS ---
APPROVED REPORT EXAM: Comprehensive 2D, Doppler, and color-flow Echocardiogram Assistant Teacher Primary: Linda Jasso RVT Ht: 5 ft 11 in Wt: 281lbs BSA: 2.44 BP: 122/60 mmHg Indications: CP,SOA,CHF,HOME O2,COPD,HTN,HLD,FATIGUE,OBESITY TDS-LIMITED WINDOWS R/T PT BODY HABITUS M-Mode Dimensions RVDd 3.00 cm (0.9-2.6) LA Diam 4.38 cm (1.9-4.0) LVDd 4.97 cm (3.5-5.7) LVDs 2.81 cm (3.5-5.7) IVSd 1.10 cm (0.6-1.1) PWd 0.64 cm (0.6-1.1) EF (Teich) 74.40% FS 43.50% EDV (Teich) 116.60 mL TAPSE 2.18 (<1.7) ESV (Teich) 29.80 mL LV Diastology E Decel Time 163 (160-240 msec) E/A Ratio 0.9 MED A' 16.40 cm/s LAT A' 13.70 cm/s Aortic Valve NAY Index 1.14 cm2/m2 AoV Peak Tree. 114.0 (50-130 cm/s) AO Peak GR. 5.20 mmHg AO Mean GR. 2.80 (<5 mmHg) AO VTI 19.5 (18-25 cm) NAY (VTI) 2.86 (2.5-4.5 cm2) Mitral Valve MV E Max Tree. 66.0 (40-130 cm/s) MV A Velocity 76.0 (40-130 cm/s) E/A Ratio 0.87 MV PHT 48.0 ms Pulmonary Valve PV Peak Velocity 95.0 (50-150 cm/s) Tricuspid Valve TR P. Velocity 418.00 cm/s RAP Estimate 10.00 mmHg RVSP 79.90 mmHg Left Ventricle The left ventricle is normal size. The left ventricular systolic function is normal. The left ventricular ejection fraction is within the normal range. There is normal left ventricular wall thickness. There is normal LV segmental wall motion. There is septal flattening, consistent with RV pressure/volume overload. Diastolic function is indeterminate. LVEF is 55%. Right Ventricle The right ventricle is moderately to severely dilated. Right ventricle is moderately hypokinetic. There is increased RV wall thickness. Atria The left atrium is mildly dilated. Right atrium is moderately dilated. There is no Doppler evidence of interatrial shunt. Aortic Valve The aortic valve opens well. There is no aortic valvular stenosis. No aortic regurgitation is present. Mitral Valve The mitral valve leaflets are mildly thickened. No evidence of mitral valve stenosis. Mild mitral regurgitation. Tricuspid Valve The tricuspid valve leaflets are thin and pliable. Mild tricuspid regurgitation. RVSP > 60 mmHg. Pulmonic Valve The pulmonary valve is normal in structure. Mild pulmonic regurgitation. Great Vessels The aortic root is normal in size. The ascending aorta is not well-visualized. The IVC is plethoric. Pericardium There is no pericardial effusion. Other Information Study Quality: Technically Difficult Conclusion Technically difficult study due to poor acoustic windows. Normal LV systolic function. Moderate to severe RV dilation with moderate RV dysfunction. Septal flattening consistent with RV volume/pressure overload. Mild MR, mild TR, mild PI. Markedly increased RVSP > 60 mmHg. Electronically signed by : Isabel Valladares MD 08/15/2023 18:30:54
--- NOTE | 2023-08-09 11:17 | NM_ITS ---
APPROVED REPORT Exam: Nuclear Stress Test Indication: htn, hyperlipidemia, tob use, fm hx, c.p., sob, palpitations, fatigue Patient Location: Outpatient Stress Tech: Marilynn Dotson Ht: 5 ft 11 in Wt: 219 lbs Bra Size: DD HR: 76 bpm BP: 142/73 mmHg BSA: 2.19 m2 TID: 1.07 BMI: 30.5 History: htn, hyperlipidemia, tob use, fm hx, c.p., sob, palpitations, fatigue The patient could not lie on her abdomen for prone images. Procedure: Patient received 0.4 mg of intravenous Lexiscan, resting heart rate 76 bpm, resting blood pressure 142/73 mmHg, with Lexiscan maximum heart rate achieved was 86 bpm which is % of the maximum predicted heart rate and blood pressure was 138/66 mmHg. With Lexiscan, patient denied any complaint of chest pain. Cardiac Stress and Resting SPECT Images: Cardiac Stress and Resting SPECT images were obtained using technetium 99m Myoview 30.0 mCi stress and 10.97 mCi at rest. The patient could not lie on her abdomen. Therefore, prone stress imaging could not be obtained. This may affect the diagnostic interpretation of the study findings. Raw images demonstrate marked RV dilation. Resting and stress imaging in supine position demonstrate a medium sized, moderate, reversible perfusion defect in the basal to mid inferior LV wall. Gated imaging demonstrates normal global LV systolic function. There is mild hypokinesis of the basal inferior wall. LVEF is calculated at 66%. Conclusion: Raw images demonstrate marked RV dilation. Medium sized, moderate, reversible perfusion defect in the basal to mid inferior LV wall. Findings are suggestive of reversible ischemia. Gated imaging demonstrates normal global LV systolic function. There is mild hypokinesis of the basal inferior wall. LVEF is calculated at 66%. Further evaluation of the marked RV dilation/dysfunction is recommended with TTE. Electronically signed by : Isabel Valladares MD 08/13/2023 18:11:11
== END ==
LOC: RAD 11:12
PROVIDERS: PCP Family Medicine; Visit Provider Nurse Practitioner
DX: I11.0 Hypertensive heart disease with heart failure (principal); I25.10 Atherosclerotic heart disease of native coronary artery without angina pectoris; I50.30 Unspecified diastolic (congestive) heart failure; I67.2 Cerebral atherosclerosis; R06.00 Dyspnea, unspecified; E78.5 Hyperlipidemia, unspecified; G47.33 Obstructive sleep apnea (adult) (pediatric); J44.9 Chronic obstructive pulmonary disease, unspecified; Z72.0 Tobacco use
CPT/HCPCS: 78452; 93017; 93018; 93306; A9502; J2785

== ENCOUNTER 2023-08-25 11:51 | Outpatient (CLI) | payer MEDICARE, MEDICAID, SELFPAY ==
[2023-08-25 13:35] LABS: Chloride 97 mmol/L (98-107); Potassium 3.9 mmoL/L (3.5-5.1); Sodium 135 mmol/L (136-145)
[2023-08-25 13:38] LABS: Anion Gap 9.9 mEq/L (5-15); Blood Urea Nitrogen 8 mg/dl (7-17); Carbon Dioxide 32 mmol/L (22.0-30.0); Estimated Glomerular Filt Rate 85 ml/min (>60); GFR (African American) 103 ML/MIN (>60)
[2023-08-25 13:39] LABS: Glucose 83 mg/dl (74-100)
== END 2023-08-25 23:59 ==
LOC: LAB 11:53
PROVIDERS: PCP Family Medicine; Visit Provider Nurse Practitioner
DX: I25.10 Atherosclerotic heart disease of native coronary artery without angina pectoris (principal); R94.39 Abnormal result of other cardiovascular function study
CPT/HCPCS: 36415; 80048

== ENCOUNTER 2023-08-29 13:25 | Observation (INO) | payer MEDICARE, MEDICAID, SELFPAY ==
[2023-08-29] VITALS (10 sets, daily range): BP systolic 102–122; BP diastolic 45–75; PULSE 79–94; RESP 20–24; TEMP 36.5–36.8; O2SAT 80–96; BMI 30.7
--- NOTE | 2023-08-29 13:32 | ECG_ITS ---
APPROVED REPORT Exam: Resting ECG HR:85 bpm ECG Measurements Heart Rate 85 AXES AK 146 P 82 QRSd 93 QRS 75 QT 392 T 59 QTc 434 Conclusion SINUS RHYTHM POSSIBLE RIGHT ATRIAL ENLARGEMENT [0.25mV P-WAVE] LOW QRS VOLTAGE IN PRECORDIAL LEADS [QRS DEFLECTION < 1.0 mV IN CHEST LEADS] POSSIBLE RIGHT VENTRICULAR CONDUCTION DELAY [RSR (QR) IN V1/V2] MODERATE ST DEPRESSION [0.05+ mV ST DEPRESSION] ABNORMAL ECG UNCONFIRMED REPORT Electronically signed by : Jack Mathis MD 08/29/2023 17:46:47
--- NOTE | 2023-08-29 13:34 | XR_ITS ---
FINAL REPORT CLINICAL HISTORY: Shortness of breath and chest pain COMPARISON: 02/01/2023 FINDINGS: A single portable view of the chest was obtained. The heart size and pulmonary vascularity are within normal limits. There is worsening pulmonary vascular congestion. Bibasilar atelectasis or pneumonia is noted.. The bony thorax is intact. IMPRESSION: Worsening pulmonary vascular congestion. Bibasilar atelectasis or pneumonia. Reviewed, Interpreted and Dictated by Brendan Multani III, MD Transcribed by Joslyn Ortiz Authenticated and . [facility]
--- NOTE | 2023-08-29 13:36 | PC.NURSE ---
DR STATON AT BEDSIDE
--- NOTE | 2023-08-29 13:50 | [facility].EDCP ---
Discharge Plan Disposition Patient Disposition: Admitted Chief Complaint: Shortness of Breath/Dyspnea Prescriptions Prescriptions: No Action aspirin [Adult Low Dose Aspirin] 81 mg tablet,delayed release (DR/EC) 81 mg PO DAILY Dilaudid (PF) 1 mg/mL syringe 1 mg SQ .COMPLEX PRN (Reason: Pain) Rx Instructions: Pain pump fluticasone propionate [Flonase Allergy Relief] 50 mcg/actuation spray,suspension 1 spray intranasal DAILY Rx Instructions: administer into each nostril pramipexole 1 mg tablet 1 mg PO HS cyanocobalamin (vitamin B-12) 1,000 mcg/mL solution 1,000 mcg IM MONTHLY Qty: 10 1RF spironolactone 25 mg tablet 25 mg PO DAILY Qty: 90 3RF atorvastatin 20 mg tablet 20 mg PO DAILY 90 Days Qty: 90 0RF omeprazole 40 mg capsule,delayed release(DR/EC) 40 mg PO BID 90 Days Qty: 180 0RF pregabalin 150 mg capsule 150 mg PO BID 30 Days Qty: 60 2RF empagliflozin 10 mg tablet 10 mg PO DAILY 30 Days Qty: 30 2RF colestipol 1 gram tablet 1 g PO BID 30 Days Qty: 60 2RF azithromycin 250 mg tablet 250 mg PO QMWF Qty: 45 2RF albuterol sulfate 90 mcg/actuation HFA aerosol inhaler 2 puff inhalation QID PRN (Reason: shortness of breath or wheezing) 90 Days Qty: 8.5 3RF Spiriva Respimat 2.5 mcg/actuation mist 2 inh inhalation DAILY 90 Days Qty: 4 3RF Rx Instructions: COPD ipratropium-albuterol 0.5 mg-3 mg(2.5 mg base)/3 mL solution for nebulization 3 ml IH Q6H PRN (Reason: shortness of breath or wheezing) Qty: 90 6RF escitalopram oxalate 20 mg tablet 40 mg PO DAILY 30 Days Qty: 60 2RF (DME) Aerochamber MV Spacer See Rx Instructions .Route Qty: 10 1RF Rx Instructions: As directed furosemide 20 mg tablet 40 mg PO DAILY 30 Days Qty: 60 2RF alprazolam 0.5 mg tablet 0.5 mg PO BID PRN (Reason: Anxiety) Qty: 60 0RF potassium chloride 20 mEq tablet,ER particles/crystals 40 meq PO HS Patient Comments: TAKE 3 TABLETS DAILY AND 2 AT BEDTIME. fluticasone furoate-vilanterol [Breo Ellipta] 100-25 mcg/dose blister with device 1 inh inhalation DAILY Referrals Follow up/Referrals: Keegan Green MD [Primary Care Provider] - See instructions Clinical Impressions Clinical Impression: CHF exacerbation, Acute hypoxemic respiratory failure Discharge ED Provider: Jeovanny Bowman HPI General Chief Complaint: Shortness of Breath/Dyspnea Stated Complaint: weakness and soa Time Seen by Provider: 08/29/23 13:26 Mode of Arrival: Wheelchair Source of Information: Patient Limitations: No Limitations Description of Symptoms (Recalled from ER Triage Doc. by RN): Pt. states she has had shortness of breath, cough, congestion, and weakness for the last 3 days. She wears 1L of O2 at baseline but has turned it up to 2L. History of Present Illness HPI narrative: 63-year-old female history of COPD still currently smoking 1.5 packs/day on 1 to 2 L nasal cannula at home during the day, BiPAP at night, CHF, hypertension, hyperlipidemia, CAD presenting with shortness of breath. Patient states that she has been getting short of breath for the last 3 days. Associated with generalized weakness secondary to difficulty catching her breath. She has been coughing, but no more than usual. Coughing up yellowish-brown sputum, which is normal for her. Denies fevers or chills, vomiting, diarrhea, or any other concerns. Related Data Home Medications Medication Instructions Recorded Confirmed aspirin 81 mg tablet,delayed 81 mg PO DAILY heart health 08/09/22 08/29/23 release (Adult Low Dose Aspirin) potassium chloride 20 mEq 40 meq PO HS potassium replacement 11/16/22 08/29/23 tablet,extended release(part/cryst) hydromorphone (PF) 1 mg/mL 1 mg SQ .COMPLEX PRN Pain 12/08/22 08/29/23 injection syringe (Dilaudid (PF)) fluticasone propionate 50 1 spray intranasal DAILY ALLERGIES 04/04/23 08/29/23 mcg/actuation nasal spray,suspension (Flonase Allergy Relief) fluticasone furoate 100 1 inh inhalation DAILY . 05/24/23 08/29/23 mcg-vilanterol 25 mcg/dose inhalation powder (Breo Ellipta) pramipexole 1 mg tablet 1 mg PO HS 08/11/23 08/29/23 Previous Rx's Medication Instructions Recorded cyanocobalamin (vitamin B-12) 1,000 mcg IM MONTHLY Supplement 01/24/23 1,000 mcg/mL injection solution #10 mL spironolactone 25 mg tablet 25 mg PO DAILY Fluid #90 tabs 04/05/23 atorvastatin 20 mg tablet 20 mg PO DAILY Cholesterol 90 days 04/15/23 #90 tabs omeprazole 40 mg capsule,delayed 40 mg PO BID acid reflux 90 days 04/15/23 release #180 caps pregabalin 150 mg capsule 150 mg PO BID Pain 30 days #60 caps 04/15/23 empagliflozin 10 mg tablet 10 mg PO DAILY Heart failure 30 04/28/23 days #30 tabs colestipol 1 gram tablet 1 g PO BID diarrhea 30 days #60 05/16/23 tabs albuterol sulfate 90 mcg/actuation 2 puff inhalation QID PRN 05/30/23 aerosol inhaler shortness of breath or wheezing 90 days #8.5 grams azithromycin 250 mg tablet 250 mg PO QMWF #45 tabs 05/30/23 ipratropium 0.5 mg-albuterol 3 mg 3 ml inhalation Q6H PRN shortness 06/08/23 (2.5 mg base)/3 mL nebulization of breath or wheezing #90 mL soln tiotropium bromide 2.5 2 inh inhalation DAILY Breathing 06/08/23 mcg/actuation mist for inhalation problems 90 days #4 grams (Spiriva Respimat) escitalopram oxalate 20 mg tablet 40 mg PO DAILY Depression 30 days 06/15/23 #60 tabs furosemide 20 mg tablet 40 mg PO DAILY Fluid 30 days #60 08/11/23 tabs inhalational spacing device #10 ea 08/11/23 (Aerochamber MV spacer) alprazolam 0.5 mg tablet 0.5 mg PO BID PRN Anxiety #60 tabs 08/16/23 Allergies Allergy/AdvReac Type Severity Reaction Status Date / Time amoxicillin [From Amoxil] Allergy Verified 08/29/23 13:33 moxifloxacin [From Avelox] Allergy Verified 08/29/23 13:33 ofloxacin Allergy Verified 08/29/23 13:33 Quinidine-Quinine Analogues Allergy Verified 08/29/23 13:33 (Cincho rofecoxib [From Vioxx] Allergy Verified 08/29/23 13:33 tramadol Allergy Verified 08/29/23 13:33 [facility] Disclaimer: The information contained in this section may have been updated after the patient was seen, as this information can be updated by other users. Medical History (Updated 08/29/23 @ 15:17 by Jeovanny Bowman MD) Abnormal cardiovascular stress test Allergic rhinitis Allergic rhinitis, unspecified Allergic rhinitis, unspecified Anxiety Asthma Atypical angina Bilateral leg pain Bilateral leg pain Bilateral low back pain with sciatica CAD (coronary artery disease) Chronic bronchitis Chronic bronchitis COPD (chronic obstructive pulmonary disease) COPD (chronic obstructive pulmonary disease) COPD mixed type Cough Dyspnea Dyspnea on exertion Edema Elevated left ventricular end-diastolic pressure (LVEDP) Encounter for screening for malignant neoplasm of lung in current smoker with 30 pack year history or greater Encounter for screening for malignant neoplasm of lung in current smoker with 30 pack year history or greater Eosinophilia Eosinophilia Eosinophilia Fatigue Fibromyalgia GERD (gastroesophageal reflux disease) Hyperlipidemia Hypertension Hypokalemia Hypothyroidism Leg pain Leg pain, bilateral [facility] current use of diuretic Lung nodule Lung nodule Neuropathy Obesity (BMI 30-39.9) Pulmonary fibrosis Pulmonary fibrosis, unspecified Screening for lung cancer Sore throat TMJ dysfunction Tobacco abuse Tobacco abuse counseling Tobacco abuse counseling Tobacco abuse counseling Tobacco abuse counseling Tobacco abuse disorder Tobacco dependence syndrome Unspecified asthma, uncomplicated Surgical History History of arthroscopy of knee History of bladder suspension procedure History of cardiac cath History of section History of colonoscopy History of hemorrhoidectomy History of hysterectomy History of sinus surgery Family History Mother Hypertension Father No problems noted. Social History Smoking Status: Current every day smoker tobacco type: cigarettes packs per day: 1 years smoked: 40 second hand exposure: Yes alcohol intake: never substance use type: denies use current occupational status: disabled Travel in the last 8 weeks: None household members: spouse housing: house current occupational exposures/hazards: No caffeine: Yes bobby/confucianism: Mosque ROS Obtained: Yes All systems reviewed & no additional complaints except as documented Physical Exam General General appearance: alert Head Head exam: other (Nasal cannula this 2 L) Neck Neck exam: Present trachea midline Chest Chest inspection: Present normal inspection and symmetric chest wall rise Respiratory Respiratory exam: Present wheezes (Left lower lung galeano primarily); Absent respiratory distress, stridor, accessory muscle use or prolonged expiratory phase Cardiovascular Cardiovascular exam: Present regular rate and normal rhythm Extremities Exam Extremities exam: Absent edema Neurological Exam Neurological exam: Present alert, oriented X3 and CN II-XII intact Skin Skin exam: Present warm and dry; Absent cyanosis, diaphoresis or pallor HEART Score HEART Score HEART Score assessment performed?: Yes HEART Score: 3 Critical Care Critical Care Time Critical Care Time: Yes (CV, resp) Attestation: On 08/29/23, the high probability of a clinically significant, sudden or life threatening deterioration of the following system(s) required my full and direct attention, intervention and personal management. The time I documented below is in addition to time spent performing reported procedures but includes the following listed in this critical care notation. Total Time Total Critical Care Time: 45 Medical Decision Making Medical Records Medical records reviewed: Yes I reviewed the patient's medical records. Je Inquiry Pt receiving controlled substance: No Je was queried for this patient: No Vital Signs Vital Signs: 08/29/23 13:34 08/29/23 14:15 08/29/23 14:18 Temperature 98.2 F Temperature Source Oral Pulse Rate 82 82 Pulse Rate [Right Brachial] 82 Respiratory Rate 24 Blood Pressure 115/58 L 115/58 L Blood Pressure [Right Arm] 119/64 Blood Pressure Mean 88 Blood Pressure Mean [Right Arm] 82 Blood Pressure Source [Right Arm] Automatic Cuff Blood Pressure Position [Right Arm] Sitting 02 Sat by Pulse Oximetry 92 L 95 94 L Oxygen Delivery Method Nasal Cannula Oxygen Flow Rate (LPM) 2 08/29/23 14:32 08/29/23 15:00 Temperature Temperature Source Pulse Rate 79 81 Pulse Rate [Right Brachial] Respiratory Rate Blood Pressure 118/49 L 102/45 L Blood Pressure [Right Arm] Blood Pressure Mean 72 64 Blood Pressure Mean [Right Arm] Blood Pressure Source [Right Arm] Blood Pressure Position [Right Arm] 02 Sat by Pulse Oximetry 96 80 L Oxygen Delivery Method Oxygen Flow Rate (LPM) Lab Data Labs: Lab Results 08/29/23 13:34: VBG pH 7.36, VBG pCO2 50.6, VBG pO2 48.0 H, VBG HCO3 27.8, VBG Total CO2 29.3 H, VBG O2 Saturation 82.5 H, VBG Base Excess 2.3 08/29/23 13:47: Sodium 130 L, Potassium 4.3, Chloride 98, Carbon Dioxide 30, Anion Gap 6.3, BUN 6 L, Creatinine 0.60, Estimated Creat Clear 92, Estimated GFR 101, Est GFR ( Amer) 123, Glucose 99, Calcium 7.9 L, Total Bilirubin 1.0, AST 38 H, ALT 17, Alkaline Phosphatase 55, NT-Pro-B Natriuret Pep 5030 H, Total Protein 5.9 L, Albumin 3.0 L, Globulin 2.9, Albumin/Globulin Ratio 1.0 L 08/29/23 14:11: WBC 12.3 H, RBC 4.54, Hgb 10.2 L, Hct 33.7 L, MCV 74.2 L, MCH 22.5 L, MCHC 30.3 L, RDW 19.7 H, Plt Count 161, MPV 10.1, Neut % (Auto) 83.0 H, Lymph % (Auto) 9.6 L, [place] % (Auto) 5.8, Eos % (Auto) 1.4, Baso % (Auto) 0.3, Neut # (Auto) 10.2 H, Lymph # (Auto) 1.2, [place] # (Auto) 0.7, Eos # (Auto) 0.2, Baso # (Auto) 0.0 08/29/23 14:11 08/29/23 13:47 Response Orders (Tests/Meds): ED MEDICATIONS Discontinued Medications Generic Name Dose Route Start Last Admin Trade Name Davon PRN Reason Stop Dose Admin Albuterol/Ipratropium 6 ml 08/29/23 13:41 08/29/23 14:42 Ipratropium/Albuterol 3 Ml Neb IH 08/29/23 13:42 6 ml ONCE ONE Administration Aspirin 324 mg 08/29/23 13:34 08/29/23 14:15 Aspirin 81mg Chewable Tablet PO 08/29/23 13:35 324 mg ONCE ONE Administration Furosemide 40 mg 08/29/23 14:57 Furosemide 40mg/4ml Vial IV 08/29/23 14:58 ONCE ONE Methylprednisolone Sodium Succinate 125 mg 08/29/23 13:41 08/29/23 14:17 Methylprednisolone Sod Succ 125mg Vial IV 08/29/23 13:42 125 mg ONCE ONE Administration Ondansetron HCl 4 mg 08/29/23 14:36 08/29/23 14:42 Ondansetron 4mg/2ml Vial IV 08/29/23 14:37 4 mg ONCE ONE Administration ORDERS Category Date Time Status CXR --portable [XR chest portable] Stat Exams 08/29/23 13:34 Completed Brain Natriuretic Peptide Stat Lab 08/29/23 13:47 Completed CBC w/Auto Diff [Complete Blood Count Auto Diff] Stat Lab 08/29/23 14:11 Completed CMP [Comprehensive Metabolic Panel] Stat Lab 08/29/23 13:47 Results Trop I [Troponin I] Stat Lab 08/29/23 13:47 Results Troponin I Q3H Lab 08/29/23 16:45 Ordered Troponin I Q3H Lab 08/29/23 19:45 Ordered VBG [Venous Blood Gas] Stat RT 08/29/23 13:34 Completed MDM Narrative Medical Decision Narrative: 63-year-old female history of COPD still currently smoking 1.5 packs/day on 1 to 2 L nasal cannula at home during the day, BiPAP at night, CHF, hypertension, hyperlipidemia, CAD presenting with shortness of breath. Patient states that she has been getting short of breath for the last 3 days. Associated with generalized weakness secondary to difficulty catching her breath. She has been coughing, but no more than usual. Coughing up yellowish-brown sputum, which is normal for her. Denies fevers or chills, vomiting, diarrhea, or any other concerns. Hb noted the patient has COPD and is still currently smoking, which complicates care. History was obtained via conversation with patient. On arrival, patient hemodynamically stable, alert, oriented x4, appropriate, GCS 15, moving all extremities spontaneously, pupils equal and reactive to light. Full physical exam performed and significant for tired appearing woman in no acute distress. Wheezes left lower lung galeano, but no evidence of rales. Patient saturating appropriately on 2 L nasal cannula. Cardiac exam within normal limits. No lower extremity edema. Abdomen is soft, nontender.. Differential includes COPD exacerbation, ACS, [place], pneumothorax, PE, dissection, pneumothorax, aortic aneurysm, pneumonia, bronchitis, among others. Patient was given Solu-Medrol, DuoNeb, aspirin for symptomatic management and correction of underlying abnormalities. Workup independently interpreted and significant for largely nonactionable CBC, mild leukocytosis 12.3. Could be stress degranulation. VBG nonactionable with normal pH. Sodium a little low at 130, likely secondary to diuretic use. BNP elevated at 5000, troponin negative. Chest x-ray with pulmonary vascular congestion and pulmonary edema. See radiology read for full review of final results. Independent interpretation of EKG shows sinus rhythm 85 beats a minute with no ST or T wave changes concerning for acute ischemia. AK, QRS, QT intervals within normal limits. Heart score 3. On reevaluation, patient desaturated to 71% when removed from oxygen, placed on 3 L nasal cannula with good return to 90%. Interactive discussion had with hospitalist, patient to be admitted. Because patient high risk for clinical decompensation, deemed appropriate for inpatient admission. Results were relayed to patient who voiced understanding and patient was agreeable to inpatient admission and management. Patient was admitted to the hospital for further definitive management.
--- NOTE | 2023-08-29 13:57 | PC.NURSE ---
Notified RT of VBG order
[2023-08-29 14:04] LABS: Alanine Aminotransferase 17 U/L (12-78); Alkaline Phosphatase 55 U/L (38-126); Anion Gap 6.3 mEq/L (5-15); Aspartate Amino Transferase 38 U/L (14-36); Blood Urea Nitrogen 6 mg/dl (7-17); Calcium 7.9 mg/dl (8.4-10.2); Carbon Dioxide 30 mmol/L (22.0-30.0); Chloride 98 mmol/L (98-107); Creatinine Clearance Estimated 92 mL/min (50-200); Estimated Glomerular Filt Rate 101 ml/min (>60); GFR (African American) 123 ML/MIN (>60); Globulin 2.9 g/dL (1.3-3.2); Glucose 99 mg/dl (74-100); Potassium 4.3 mmoL/L (3.5-5.1); Sodium 130 mmol/L (136-145); Total Protein,Serum 5.9 g/dl (6.3-8.2)
[2023-08-29 14:14] LABS: NT Pro Brain Natriuretic Pep. 5030 pg/mL (0-125)
[2023-08-29] MEDS: ASPIRIN 81MG CHEWABLE TABLET 324 MG PO (14:15)
[2023-08-29] MEDS: METHYLPREDNISOLONE SOD SUCC 125MG VIAL 125 MG IV (14:17)
[2023-08-29 14:35] LABS: Basophils % 0.3 % (0.1-2.0); Eosinophils # 0.2 K/mm3 (0.0-0.4); Eosinophils % 1.4 % (0.1-12.0); Hematocrit 33.7 % (37.0-47.0); Hemoglobin 10.2 g/dL (12.2-16.2); Lymphocytes # 1.2 K/mm3 (0.7-4.5); Lymphocytes % 9.6 % (10-50); Mean Corpuscular HGB Conc 30.3 g/dL (31.8-35.4); Mean Corpuscular Hemoglobin 22.5 pg (27.0-31.2); Mean Corpuscular Volume 74.2 fl (81-99); Mean Platelet Volume 10.1 fl (7.4-10.4); Monocytes # 0.7 K/mm3 (0.1-1.0); Monocytes % 5.8 % (1.7-9.3); Neutrophils # 10.2 K/mm3 (1.8-7.8); Platelet Count 161 K/mm3 (142-424); Red Blood Count 4.54 M/mm3 (4.20-5.40); Red Cell Distribution Width 19.7 % (11.5-17.5); White Blood Count 12.3 K/mm3 (4.8-10.8)
[2023-08-29 14:39] LABS: VBG Base Excess 2.3 mmol/L (-2.4-2.3); VBG HCO3 27.8 mmol/L (23-30); VBG Oxygen Saturation 82.5 % (50-70); VBG PH 7.36 mmol/L (7.31-7.41); VBG Total CO2 29.3 mmol/L (23-27)
[2023-08-29] MEDS: IPRATROPIUM/ALBUTEROL 3 ML NEB 6 ML IH (14:42)
[2023-08-29] MEDS: ONDANSETRON 4MG/2ML VIAL 4 MG IV (14:42)
[2023-08-29 14:43] LABS: VBG PCO2 50.6 mmol/L (35-51)
--- NOTE | 2023-08-29 14:45 | PC.NURSE ---
Melissa from respiratory call critical VBG on patient. CO2-51 PO2-48 BiCarb -28 BaseExcess 2.3 pH- 7.36
--- NOTE | 2023-08-29 15:00 | PC.NURSE ---
DR STATON SPEAKING WITH HOSPITALIST FOR ADMISSION
--- NOTE | 2023-08-29 15:06 | PC.NURSE ---
DR STATON AT BEDSIDE TO UPDATE PT
--- NOTE | 2023-08-29 15:07 | PC.NURSE ---
CARE MANAGEMENT NOTIFIED OF ADMISSION
[2023-08-29] MEDS: FUROSEMIDE 40MG/4ML VIAL 40 MG IV ×2 (15:21→21:25)
--- NOTE | 2023-08-29 15:34 | PC.NURSE ---
Report called to CINDY Werner
--- NOTE | 2023-08-29 15:57 | PC.NURSE ---
arrived by w/c from ED
[2023-08-29 17:22] LABS: Troponin I < 0.01 ng/ml (0.00-0.034)
[2023-08-29 17:22] LABS: Troponin I < 0.01 ng/ml (0.00-0.034)
[2023-08-29] MEDS: DOCUSATE SODIUM 100 MG CAPSULE PO (18:38)
[2023-08-29] MEDS: HEPARIN SODIUM 5,000 UNIT/ML VIAL 5000 UNIT SQ (18:38)
--- NOTE | 2023-08-29 18:57 | EXP.HP ---
History of Present Illness *Admission Date: 08/29/23 *Reason for visit:: SOB *History of present illness: Patient is a 63-year-old female with past medical history of COPD CHF hypertension hyperlipidemia CAD who presented to hospital due to shortness of breath. According to the patient she has been having shortness of breath with exertion. She also has been having dry cough. She denies fever chills nausea vomiting diarrhea. [facility] Disclaimer: The information contained in this section may have been updated after the patient was seen, as this information can be updated by other users. Medical History (Updated 08/29/23 @ 16:26 by Debbi Cantu) Abnormal cardiovascular stress test Allergic rhinitis Allergic rhinitis, unspecified Allergic rhinitis, unspecified Anxiety Asthma Atypical angina Bilateral leg pain Bilateral leg pain Bilateral low back pain with sciatica CAD (coronary artery disease) Chronic bronchitis Chronic bronchitis Congestive heart failure COPD (chronic obstructive pulmonary disease) COPD (chronic obstructive pulmonary disease) COPD mixed type Cough Dyspnea Dyspnea on exertion Edema Elevated left ventricular end-diastolic pressure (LVEDP) Encounter for screening for malignant neoplasm of lung in current smoker with 30 pack year history or greater Encounter for screening for malignant neoplasm of lung in current smoker with 30 pack year history or greater Eosinophilia Eosinophilia Eosinophilia Fatigue Fibromyalgia Fibromyalgia GERD (gastroesophageal reflux disease) History of gastroesophageal reflux (GERD) Hyperlipidemia Hypertension Hypokalemia Hypothyroidism Leg pain 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, 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 Lung nodule Lung nodule Neuropathy Obesity (BMI 30-39.9) Osteoarthritis Pulmonary fibrosis Pulmonary fibrosis, unspecified Screening for lung cancer Sore throat TMJ dysfunction Tobacco abuse Tobacco abuse counseling Tobacco abuse counseling Tobacco abuse counseling Tobacco abuse counseling Tobacco abuse disorder Tobacco dependence syndrome Unspecified asthma, uncomplicated Surgical History History of arthroscopy of knee History of bladder suspension procedure History of cardiac cath History of section History of colonoscopy History of hemorrhoidectomy History of hysterectomy History of sinus surgery Family History (Updated 08/29/23 @ 16:26 by Debbi Cantu) Mother Hypertension Family history of acute congestive heart failure Father No problems noted. Social History (Updated 08/29/23 @ 16:27 by Debbi Cantu) Smoking Status: Current every day smoker tobacco type: cigarettes packs per day: 1 years smoked: 40 second hand exposure: Yes alcohol intake: never substance use type: denies use current occupational status: disabled Travel in the last 8 weeks: None household members: spouse housing: house current occupational exposures/hazards: No caffeine: Yes bobby/judaism: Denominational Review of Systems Review of Systems Review of systems (narrative): as per [facility] Meds Home Medications and Allergies Home Medications Medication Instructions Recorded Confirmed Type aspirin 81 mg tablet,delayed 81 mg PO DAILY heart health 08/09/22 08/29/23 History release (Adult Low Dose Aspirin) potassium chloride 20 mEq 40 meq PO HS potassium replacement 11/16/22 08/29/23 History tablet,extended release(part/cryst) hydromorphone (PF) 1 mg/mL 1 mg SQ .COMPLEX PRN Pain 12/08/22 08/29/23 History injection syringe (Dilaudid (PF)) cyanocobalamin (vitamin B-12) 1,000 mcg IM MONTHLY Supplement 01/24/23 08/29/23 Rx 1,000 mcg/mL injection solution #10 mL fluticasone propionate 50 1 spray intranasal DAILY ALLERGIES 04/04/23 08/29/23 History mcg/actuation nasal spray,suspension (Flonase Allergy Relief) spironolactone 25 mg tablet 25 mg PO DAILY Fluid #90 tabs 04/05/23 08/29/23 Rx atorvastatin 20 mg tablet 20 mg PO DAILY Cholesterol 90 days 04/15/23 08/29/23 Rx #90 tabs omeprazole 40 mg capsule,delayed 40 mg PO BID acid reflux 90 days 04/15/23 08/29/23 Rx release #180 caps pregabalin 150 mg capsule 150 mg PO BID Pain 30 days #60 caps 04/15/23 08/29/23 Rx empagliflozin 10 mg tablet 10 mg PO DAILY Heart failure 30 04/28/23 08/29/23 Rx days #30 tabs colestipol 1 gram tablet 1 g PO BID diarrhea 30 days #60 05/16/23 08/29/23 Rx tabs fluticasone furoate 100 1 inh inhalation DAILY . 05/24/23 08/29/23 History mcg-vilanterol 25 mcg/dose inhalation powder (Breo Ellipta) albuterol sulfate 90 mcg/actuation 2 puff inhalation QID PRN 05/30/23 08/29/23 Rx aerosol inhaler shortness of breath or wheezing 90 days #8.5 grams azithromycin 250 mg tablet 250 mg PO QMWF #45 tabs 05/30/23 08/29/23 Rx ipratropium 0.5 mg-albuterol 3 mg 3 ml inhalation Q6H PRN shortness 06/08/23 08/29/23 Rx (2.5 mg base)/3 mL nebulization of breath or wheezing #90 mL soln tiotropium bromide 2.5 2 inh inhalation DAILY Breathing 06/08/23 08/29/23 Rx mcg/actuation mist for inhalation problems 90 days #4 grams (Spiriva Respimat) escitalopram oxalate 20 mg tablet 40 mg PO DAILY Depression 30 days 06/15/23 08/29/23 Rx #60 tabs furosemide 20 mg tablet 40 mg PO DAILY Fluid 30 days #60 08/11/23 08/29/23 Rx tabs inhalational spacing device #10 ea 08/11/23 08/29/23 Rx (Aerochamber MV spacer) pramipexole 1 mg tablet 1 mg PO HS 08/11/23 08/29/23 History alprazolam 0.5 mg tablet 0.5 mg PO BID PRN Anxiety #60 tabs 08/16/23 08/29/23 Rx New Prescriptions to Start Prescriptions: Allergies Allergy/AdvReac Type Severity Reaction Status Date / Time amoxicillin [From Amoxil] Allergy Verified 08/29/23 13:33 moxifloxacin [From Avelox] Allergy Verified 08/29/23 13:33 ofloxacin Allergy Verified 08/29/23 13:33 Quinidine-Quinine Analogues Allergy Verified 08/29/23 13:33 (Cincho rofecoxib [From Vioxx] Allergy Verified 08/29/23 13:33 tramadol Allergy Verified 08/29/23 13:33 Exam Data for Last 24 hours Vital signs and Labs for Last 24 Hours: Temp Pulse Resp BP Pulse Ox O2 Del Method O2 Flow Rate 97.7 F 89 20 122/75 94 L Nasal Cannula 2 08/29/23 16:05 08/29/23 16:05 08/29/23 16:05 08/29/23 16:05 08/29/23 16:15 08/29/23 18:33 08/29/23 18:33 Laboratory Results - last 24 hr 08/29/23 13:34: VBG pH 7.36, VBG pCO2 50.6, VBG pO2 48.0 H, VBG HCO3 27.8, VBG Total CO2 29.3 H, VBG O2 Saturation 82.5 H, VBG Base Excess 2.3 08/29/23 13:47: Sodium 130 L, Potassium 4.3, Chloride 98, Carbon Dioxide 30, Anion Gap 6.3, BUN 6 L, Creatinine 0.60, Estimated Creat Clear 92, Estimated GFR 101, Est GFR ( Amer) 123, Glucose 99, Calcium 7.9 L, Total Bilirubin 1.0, AST 38 H, ALT 17, Alkaline Phosphatase 55, Troponin I < 0.01, NT-Pro-B Natriuret Pep 5030 H, Total Protein 5.9 L, Albumin 3.0 L, Globulin 2.9, Albumin/Globulin Ratio 1.0 L 08/29/23 14:11: WBC 12.3 H, RBC 4.54, Hgb 10.2 L, Hct 33.7 L, MCV 74.2 L, MCH 22.5 L, MCHC 30.3 L, RDW 19.7 H, Plt Count 161, MPV 10.1, Neut % (Auto) 83.0 H, Lymph % (Auto) 9.6 L, [place] % (Auto) 5.8, Eos % (Auto) 1.4, Baso % (Auto) 0.3, Neut # (Auto) 10.2 H, Lymph # (Auto) 1.2, [place] # (Auto) 0.7, Eos # (Auto) 0.2, Baso # (Auto) 0.0 08/29/23 16:40: Troponin I < 0.01 I & O for Last 24 hours: Intake & Output 08/26/23 08/27/23 08/28/23 08/29/23 23:59 23:59 23:59 23:59 Intake Total 240 / 240 Output Total 1600 / 1600 Balance -1360 / -1360 Weight 99.79 kg Constitutional Constitutional: no acute distress *Routine HEENT Exam Head: Present normocephalic Eye: Present EOMI and PERRL ENT: Present mucous membranes moist *Routine Neck Exam Neck: Present supple; Absent lymphadenopathy *Routine Respiratory Exam Respiratory: Present rhonchi and wheezes *Routine Cardiovascular Exam Cardiovascular: Present RRR *Routine Abdominal Exam Abdominal: Present soft and normoactive bowel sounds; Absent tenderness *Routine Rectal Exam Rectal:: deferred *Routine Genitalia Exam Genitalia:: deferred *Routine Extremities Exam Extremities: Absent cyanosis, clubbing or edema *Routine Skin Exam Skin: Present warm; Absent rash *Routine Neurological Exam Neurological: Present alert and oriented X3 Assessment and Plan *Assessment and plan (1) HTN (hypertension): Status: Chronic Qualifiers: Hypertension type: primary hypertension Qualified Code(s): I10 - Essential (primary) hypertension Category: Medical Code(s): I10 - Essential (primary) hypertension (2) HLD (hyperlipidemia): Status: Chronic Qualifiers: Hyperlipidemia type: unspecified Qualified Code(s): E78.5 - Hyperlipidemia, unspecified Category: Medical Code(s): E78.5 - Hyperlipidemia, unspecified (3) (HFpEF) heart failure with preserved ejection fraction: Status: Chronic Qualifiers: Heart failure chronicity: chronic Qualified Code(s): I50.32 - Chronic diastolic (congestive) heart failure Category: Medical Code(s): I50.30 - Unspecified diastolic (congestive) heart failure (4) TOMER and COPD overlap syndrome: Problem Comment: Baseline pulse oximetry on O2 2 L/min today was 87% and improved to 90% on 3 L. Status: Chronic Category: Medical Code(s): G47.33 - Obstructive sleep apnea (adult) (pediatric); J44.9 - Chronic obstructive pulmonary disease, unspecified Plan Patient is a 63-year-old female with past medical history of COPD CHF hypertension hyperlipidemia CAD who presented to hospital due to shortness of breath. According to the patient she has been having shortness of breath with exertion. She also has been having dry cough. She denies fever chills nausea vomiting diarrhea. Assessment Acute hypoxic respiratory failure satting less than 90% on room air Acute CHF COPD Exacerbation Leukocytosis likely reactive Hyponatremia Hypertension hyperlipidemia Plan Start 40 IV twice daily Lasix Monitor and replace electrolytes Consult cardiology Wean down oxygen as tolerated Start p.o. prednisone DuoNebs every 4 hours Azithromycin for steroid exacerbation DVT prophylaxis-heparin Resume home aspirin, statin
[2023-08-29 20:47] LABS: Troponin I < 0.01 ng/ml (0.00-0.034)
[2023-08-29] MEDS: ATORVASTATIN 20MG TABLET 20 MG PO (21:24)
[2023-08-29] MEDS: AZITHROMYCIN 500 MG in 0.9 % SODIUM CHLORIDE 250 ML 250 MG IV (21:24)
[2023-08-29] MEDS: POTASSIUM CHLORIDE 20MEQ TAB 40 MEQ PO (21:25)
[2023-08-29] MEDS: predniSONE 20MG TAB 40 MG PO (21:25)
[2023-08-29] MEDS: PANTOPRAZOLE 40MG TABLET 40 MG PO (21:25)
[2023-08-29] MEDS: IPRATROPIUM/ALBUTEROL 3 ML NEB IH (22:17)
[2023-08-29] MEDS: PROMETHAZINE HCL 25MG/ML 1ML VIAL 25 MG IV (22:32)
[2023-08-29] MEDS: ALPRAZolam 0.5MG TABLET 0.5 MG PO (23:04)
[2023-08-30] VITALS (26 sets, daily range): BP systolic 88–155; BP diastolic 44–94; PULSE 68–105; RESP 16–22; TEMP 36.3–36.8; O2SAT 88–100; BMI 29.0
[2023-08-30] MEDS: PREGABALIN 50MG CAPSULE 150 MG PO ×2 (00:02→21:38)
[2023-08-30] MEDS: HEPARIN SODIUM 5,000 UNIT/ML VIAL 5000 UNIT SQ ×3 (01:40→18:00)
[2023-08-30] MEDS: IPRATROPIUM/ALBUTEROL 3 ML NEB IH ×6 (02:30→22:27)
[2023-08-30 07:05] LABS: Basophils % 0.2 % (0.1-2.0); Eosinophils % 0.1 % (0.1-12.0); Hematocrit 35.8 % (37.0-47.0); Hemoglobin 10.6 g/dL (12.2-16.2); Lymphocytes # 0.5 K/mm3 (0.7-4.5); Lymphocytes % 11.5 % (10-50); Mean Corpuscular HGB Conc 29.6 g/dL (31.8-35.4); Mean Corpuscular Volume 74.2 fl (81-99); Mean Platelet Volume 9.9 fl (7.4-10.4); Monocytes # 0.1 K/mm3 (0.1-1.0); Monocytes % 3.2 % (1.7-9.3); Neutrophils # 3.4 K/mm3 (1.8-7.8); Neutrophils % 85.2 % (37.0-80.0); Platelet Count 157 K/mm3 (142-424); Red Blood Count 4.83 M/mm3 (4.20-5.40); Red Cell Distribution Width 19.6 % (11.5-17.5); White Blood Count 3.9 K/mm3 (4.8-10.8)
[2023-08-30 07:09] LABS: Anion Gap 5.7 mEq/L (5-15); Blood Urea Nitrogen 7 mg/dl (7-17); Carbon Dioxide 35 mmol/L (22.0-30.0); Chloride 98 mmol/L (98-107); Creatinine Clearance Estimated 87 mL/min (50-200); Estimated Glomerular Filt Rate 125 ml/min (>60); GFR (African American) 151 ML/MIN (>60); Glucose 130 mg/dl (74-100); Potassium 3.7 mmoL/L (3.5-5.1); Sodium 135 mmol/L (136-145)
[2023-08-30 07:10] LABS: MANUAL DIFFERENTIAL MANUAL DIFFERENTIAL (MANUAL DIFF)
[2023-08-30 08:21] LABS: Lymphocytes % 8 % (10-50); Neutrophils % 88 % (42-76); Total Cells Counted 100
--- NOTE | 2023-08-30 08:21 | HMH.PHAINT1 ---
Pharmacy Intervention Comments: Home med list verified with patient at bedside and external pharmacy list.
[2023-08-30 08:22] LABS: Anisocytosis 1+; Platelet Estimate Normal
[2023-08-30 08:23] LABS: Hypersegmented Neutrophils 1+; Hypochromasia 1+
[2023-08-30 08:26] LABS: Macrocytosis 1+; Poikilocytosis 1+; Spherocytes 1+
[2023-08-30 08:29] LABS: Target Cells 1+
[2023-08-30] MEDS: ASPIRIN EC 81MG TABLET 81 MG PO (09:17)
[2023-08-30] MEDS: EMPAGLIFLOZIN 10MG TABLET 10 MG PO (09:18)
[2023-08-30] MEDS: SPIRONOLACTONE 25MG TABLET 25 MG PO (09:18)
[2023-08-30] MEDS: predniSONE 20MG TAB 40 MG PO (09:19)
[2023-08-30] MEDS: CITALOPRAM 40MG TABLET 40 MG PO (09:19)
[2023-08-30] MEDS: FUROSEMIDE 40MG/4ML VIAL 40 MG IV ×2 (09:19→18:00)
[2023-08-30] MEDS: DOCUSATE SODIUM 100 MG CAPSULE PO (09:19)
[2023-08-30] MEDS: PANTOPRAZOLE 40MG TABLET 40 MG PO ×2 (09:24→21:38)
[2023-08-30] MEDS: TIOTROPIUM 18MCG/PUFF INHALER 1 CAP IH (09:28)
[2023-08-30] MEDS: FLUTICASONE/SALMETEROL 250/50MCG DISKUS 1 PUFF IH (09:29)
[2023-08-30] MEDS: ACETAMINOPHEN 325MG TAB 650 MG PO (10:51)
--- NOTE | 2023-08-30 11:28 | IR_ITS ---
APPROVED REPORT Patient Location: Inpatient Apricot Washer: GAMALIEL Trammell RT (R) PROCEDURES Selective coronary angiogram INDICATION Abnormal stress test, Angina pectoris Informed consent was obtained prior to the procedure. COMPLICATIONS None Estimated Blood Loss: Less than 10 mls TECHNIQUE One percent lidocaine used to anesthetize the right anterior aspect of the wrist. The right radial artery was accessed via the Seldinger technique. A 6 Amharic sheath was placed in the right radial artery. 2.5 mg of Verapamil, 800 mcg of nitroglycerin, 1mg Lidocaine and 5000 U Heparin were given through the arterial sheath. The papa catheter was also used to perform left heart catheterization, left ventriculogram and selective coronary angiogram. At the end of the procedure the sheath was removed good hemostasis was achieved using Traclet band, patient was transferred to the postop holding area in stable condition. ANGIOGRAPHIC RESULTS The left main artery Normal The left anterior descending artery Normal The circumflex artery Nondominant gives rise to a moderate-sized ramus intermedius with both vessels being normal The right coronary artery Large dominant normal The CRUZ ventriculogram reveals Not performed The left ventricular end-diastolic pressure Not measured IMPRESSION Normal coronary arteries PLAN 1. Medical management Electronically signed by : Rene Jack MD 08/30/2023 15:01:19
[2023-08-30] MEDS: SACUBITRIL/VALSARTAN 24-26MG TABLET 1 EACH PO ×2 (11:55→21:52)
[2023-08-30 12:12] LABS: Eosinophils % 0.1 % (0.1-12.0); Hematocrit 35.9 % (37.0-47.0); Hemoglobin 10.6 g/dL (12.2-16.2); Lymphocytes # 0.5 K/mm3 (0.7-4.5); Mean Corpuscular HGB Conc 29.6 g/dL (31.8-35.4); Mean Corpuscular Hemoglobin 22.1 pg (27.0-31.2); Mean Corpuscular Volume 74.4 fl (81-99); Mean Platelet Volume 8.8 fl (7.4-10.4); Monocytes # 0.6 K/mm3 (0.1-1.0); Monocytes % 8.3 % (1.7-9.3); Neutrophils # 5.9 K/mm3 (1.8-7.8); Neutrophils % 84.6 % (37.0-80.0); Platelet Count 134 K/mm3 (142-424); Red Blood Count 4.82 M/mm3 (4.20-5.40); Red Cell Distribution Width 19.6 % (11.5-17.5)
[2023-08-30 12:14] LABS: Chloride 93 mmol/L (98-107)
[2023-08-30 12:15] LABS: Potassium 3.5 mmoL/L (3.5-5.1); Sodium 137 mmol/L (136-145)
[2023-08-30 12:17] LABS: Blood Urea Nitrogen 11 mg/dl (7-17); Creatinine Clearance Estimated 87 mL/min (50-200); Estimated Glomerular Filt Rate 101 ml/min (>60); GFR (African American) 123 ML/MIN (>60)
[2023-08-30 12:18] LABS: Anion Gap 11.5 mEq/L (5-15); Calcium 8.2 mg/dl (8.4-10.2); Carbon Dioxide 36 mmol/L (22.0-30.0); Glucose 105 mg/dl (74-100)
--- NOTE | 2023-08-30 14:06 | P.CONCA_ITS ---
History of Present Illness History of Present Illness Consult date: 08/30/23 Requesting physician: Stacey Fregoso Consult reason: congestive heart failure and shortness of breath Chief complaint: SOB History of present illness: This is a 63-year-old white female who was admitted to the hospital for CHF exacerbation. The patient presented to the emergency department complaints of shortness of breath. She states that she had previously been admitted to [facility] on 08/14/2023 for CHF exacerbation. She states that she was treated with IV Lasix and her diuretics were adjusted for 5 days and then she was to resume her normal dose of diuretics. She states since that time she has had worsening in her shortness of breath. The patient does report associated orthopnea with her shortness of breath. She denies a cough. She denies any lower extremity edema. She denies any chest pain or pressure. She denies any fever, chills, nausea, vomiting, diarrhea. [facility] Disclaimer: The information contained in this section may have been updated after the patient was seen, as this information can be updated by other users. Medical History (Updated 08/30/23 @ 14:14 by Carmen Vasques APRN) Abnormal cardiovascular stress test Allergic rhinitis Allergic rhinitis, unspecified Allergic rhinitis, unspecified Anxiety Asthma Atypical angina Bilateral leg pain Bilateral leg pain Bilateral low back pain with sciatica CAD (coronary artery disease) Chronic bronchitis Chronic bronchitis Congestive heart failure COPD (chronic obstructive pulmonary disease) COPD (chronic obstructive pulmonary disease) COPD mixed type Cough Dyspnea Dyspnea on exertion Edema Elevated left ventricular end-diastolic pressure (LVEDP) Encounter for screening for malignant neoplasm of lung in current smoker with 30 pack year history or greater Encounter for screening for malignant neoplasm of lung in current smoker with 30 pack year history or greater Eosinophilia Eosinophilia Eosinophilia Fatigue Fibromyalgia Fibromyalgia GERD (gastroesophageal reflux disease) History of gastroesophageal reflux (GERD) Hyperlipidemia Hypertension Hypokalemia Hypothyroidism Leg pain Leg 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, 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 Lung nodule Lung nodule Neuropathy Obesity (BMI 30-39.9) Osteoarthritis Pulmonary fibrosis Pulmonary fibrosis, unspecified Pulmonary hypertension Screening for lung cancer Shortness of Breath Sore throat Stenosis of carotid artery TMJ dysfunction Tobacco abuse Tobacco abuse counseling Tobacco abuse counseling Tobacco abuse counseling Tobacco abuse counseling Tobacco abuse disorder Tobacco dependence syndrome Unspecified asthma, uncomplicated Surgical History History of arthroscopy of knee History of bladder suspension procedure History of cardiac cath History of section History of colonoscopy History of hemorrhoidectomy History of hysterectomy History of sinus surgery Family History (Updated 08/29/23 @ 16:26 by Debbi Cantu) Mother Hypertension Family history of acute congestive heart failure Father No problems noted. Social History (Updated 08/29/23 @ 16:27 by Debbi Cantu) Smoking Status: Current every day smoker tobacco type: cigarettes packs per day: 1 years smoked: 40 second hand exposure: Yes alcohol intake: never substance use type: denies use current occupational status: disabled Travel in the last 8 weeks: None household members: spouse housing: house current occupational exposures/hazards: No caffeine: Yes bobby/catholic: [facility] Review of Systems Review of Systems Review of systems:: pertinent systems reviewed and negative unless documented below Constitutional Constitutional: Reports system reviewed and no additional complaints, except as documented Eyes Eyes: Reports system reviewed and no additional complaints, except as documented ENT Ears, Nose, Mouth, and Throat: Reports system reviewed and no additional complaints, except as documented *Cardiovascular Cardiovascular: Reports system reviewed and no additional complaints, except as documented, Denies chest pain, Reports dyspnea, Reports dyspnea on exertion and Reports orthopnea *Respiratory Respiratory: Reports system reviewed and no additional complaints, except as documented, Reports dyspnea and Reports dyspnea on exertion *Gastrointestinal Gastrointestinal: Reports system reviewed and no additional complaints, except as documented *Genitourinary Genitourinary: Reports system reviewed and no additional complaints, except as documented *Musculoskeletal Musculoskeletal: Reports system reviewed and no additional complaints, except as documented Integumentary/Breasts Skin/Breast: Reports system reviewed and no additional complaints, except as documented *Neurologic Neurologic: Reports system reviewed and no additional complaints, except as documented Psychiatric Psychiatric: Reports system reviewed and no additional complaints, except as documented Endocrine Endocrine: Reports system reviewed and no additional complaints, except as documented Hematologic/Lymphatic Hematologic/Lymphatic: Reports system reviewed and no additional complaints, except as documented Allergic/Immunologic Allergic/Immunologic: Reports system reviewed and no additional complaints, except as documented Exam Data for Last 24 hours Vital signs and Labs for Last 24 Hours: Temp Pulse Resp BP Pulse Ox O2 Del Method O2 Flow Rate 98.2 F 79 16 118/83 94 L Nasal Cannula 3 08/30/23 08:00 08/30/23 13:23 08/30/23 08:00 08/30/23 08:00 08/30/23 09:44 08/30/23 10:54 08/30/23 10:54 FiO2 35 08/29/23 22:19 Laboratory Results - last 24 hr 08/29/23 13:34: VBG pH 7.36, VBG pCO2 50.6, VBG pO2 48.0 H, VBG HCO3 27.8, VBG Total CO2 29.3 H, VBG O2 Saturation 82.5 H, VBG Base Excess 2.3 08/29/23 13:47: Troponin I < 0.01, NT-Pro-B Natriuret Pep 5030 H 08/29/23 14:11: WBC 12.3 H, RBC 4.54, Hgb 10.2 L, Hct 33.7 L, MCV 74.2 L, MCH 22.5 L, MCHC 30.3 L, RDW 19.7 H, Plt Count 161, MPV 10.1, Neut % (Auto) 83.0 H, Lymph % (Auto) 9.6 L, [place] % (Auto) 5.8, Eos % (Auto) 1.4, Baso % (Auto) 0.3, Neut # (Auto) 10.2 H, Lymph # (Auto) 1.2, [place] # (Auto) 0.7, Eos # (Auto) 0.2, Baso # (Auto) 0.0 08/29/23 16:40: Troponin I < 0.01 08/29/23 19:45: Troponin I < 0.01 08/30/23 06:45: WBC 3.9 L D, RBC 4.83, Hgb 10.6 L, Hct 35.8 L, MCV 74.2 L, MCH 22.0 L, MCHC 29.6 L, RDW 19.6 H, Plt Count 157, MPV 9.9, Neut % (Auto) 85.2 H, Lymph % (Auto) 11.5, [place] % (Auto) 3.2, Eos % (Auto) 0.1, Baso % (Auto) 0.2, Neut # (Auto) 3.4, Lymph # (Auto) 0.5 L, [place] # (Auto) 0.1, Eos # (Auto) 0.0, Baso # (Auto) 0.0, Total Counted 100, Neutrophils % (Manual) 88 H, Band Neutrophils % 4.0, Lymphocytes % (Manual) 8 L, Differential Comment , Hypersegmented Neuts 1+, Platelet Estimate Normal, Hypochromasia 1+, Poikilocytosis 1+, Anisocytosis 1+, Macrocytosis 1+, Spherocytes 1+, Target Cells 1+, Sodium 135 L, Potassium 3.7, Chloride 98, Carbon Dioxide 35 H, Anion Gap 5.7, BUN 7, Creatinine 0.50 L, Estimated Creat Clear 87, Estimated GFR 125, Est GFR ( Amer) 151 D, Glucose 130 H D, Calcium 8.0 L 08/30/23 11:50: WBC 7.0 D, RBC 4.82, Hgb 10.6 L, Hct 35.9 L, MCV 74.4 L, MCH 22.1 L, MCHC 29.6 L, RDW 19.6 H, Plt Count 134 L, MPV 8.8, Neut % (Auto) 84.6 H, Lymph % (Auto) 7.0 L, [place] % (Auto) 8.3, Eos % (Auto) 0.1, Baso % (Auto) 0.0 L, Neut # (Auto) 5.9, Lymph # (Auto) 0.5 L, [place] # (Auto) 0.6, Eos # (Auto) 0.0, Baso # (Auto) 0.0, Sodium 137, Potassium 3.5, Chloride 93 L, Carbon Dioxide 36 H , Anion Gap 11.5, BUN 11 D, Creatinine 0.60, Estimated Creat Clear 87, Estimated GFR 101, Est GFR ( Amer) 123, Glucose 105 H, Calcium 8.2 L I & O for Last 24 hours: Intake & Output 08/27/23 08/28/23 08/29/23 08/30/23 23:59 23:59 23:59 23:59 Intake Total 630 / 1230 1680 / 1680 Output Total 2500 / 2500 900 / 900 Balance -1870 / -1270 780 / 780 Weight 220 lb 207 lb 3 oz Constitutional Constitutional: no acute distress and average body habitus *Routine HEENT Exam Head: Present normocephalic and atraumatic ENT: Present mucous membranes moist *Routine Neck Exam Neck: Present supple, full ROM and normal carotid upstroke; Absent JVD, carotid bruit or lymphadenopathy *Routine Respiratory Exam Respiratory: Present CTA bilaterally, normal respiratory effort, able to speak in complete sentences and symmetric chest movement *Routine Cardiovascular Exam Cardiovascular: Present RRR, Normal S1 and Normal S2; Absent murmur or gallop *Routine Abdominal Exam Abdominal: Present soft and normoactive bowel sounds; Absent tenderness, distended or organomegaly *Routine Extremities Exam Extremities: Present full ROM, pulses intact and normal capillary refill; Absent cyanosis, clubbing or edema *Routine Skin Exam Skin: Present intact and warm; Absent erythema *Routine Neurological Exam Neurological: Present alert, oriented X3 and CN II-XII intact; Absent sensory deficit or motor deficit Routine Psychiatric Exam Psychiatric: Present normal affect Meds Home Medications and Allergies Home Medications Medication Instructions Recorded Confirmed Type aspirin 81 mg tablet,delayed 81 mg PO DAILY 08/09/22 08/29/23 History release (Adult Low Dose Aspirin) hydromorphone (PF) 1 mg/mL 1 mg SQ .COMPLEX PRN Pain 12/08/22 08/30/23 History injection syringe (Dilaudid (PF)) cyanocobalamin (vitamin B-12) 1,000 mcg IM MONTHLY Supplement 01/24/23 08/29/23 Rx 1,000 mcg/mL injection solution #10 mL fluticasone propionate 50 1 spray intranasal DAILYP PRN 04/04/23 08/30/23 History mcg/actuation nasal Allergies spray,suspension (Flonase Allergy Relief) spironolactone 25 mg tablet 25 mg PO DAILY Fluid #90 tabs 04/05/23 08/30/23 Rx atorvastatin 20 mg tablet 20 mg PO DAILY Cholesterol 90 days 04/15/23 08/29/23 Rx #90 tabs pregabalin 150 mg capsule 150 mg PO BID Pain 30 days #60 caps 04/15/23 08/30/23 Rx empagliflozin 10 mg tablet 10 mg PO DAILY Heart failure 30 04/28/23 08/29/23 Rx days #30 tabs fluticasone furoate 100 1 inh inhalation DAILY 05/24/23 08/29/23 History mcg-vilanterol 25 mcg/dose inhalation powder (Breo Ellipta) azithromycin 250 mg tablet 250 mg PO QMWF #45 tabs 05/30/23 08/29/23 Rx escitalopram oxalate 20 mg tablet 40 mg PO DAILY Depression 30 days 06/15/23 08/29/23 Rx #60 tabs furosemide 20 mg tablet 40 mg PO DAILY Fluid 30 days #60 08/11/23 08/29/23 Rx tabs inhalational spacing device #10 ea 08/11/23 08/29/23 Rx (Aerochamber MV spacer) pramipexole 1 mg tablet 1 mg PO HS 08/11/23 08/29/23 History alprazolam 0.5 mg tablet 0.5 mg PO BID PRN Anxiety #60 tabs 08/16/23 08/29/23 Rx albuterol sulfate 90 mcg/actuation 2 puff inhalation QIDP PRN 08/30/23 08/30/23 History aerosol inhaler Shortness Of Breath Or Wheezing colestipol 1 gram tablet 1 g PO BID 08/30/23 08/30/23 History ipratropium 0.5 mg-albuterol 3 mg 3 ml inhalation Q6HP PRN Shortness 08/30/23 08/30/23 History (2.5 mg base)/3 mL nebulization Of Breath Or Wheezing soln omeprazole 40 mg capsule,delayed 40 mg PO BID 08/30/23 08/30/23 History release potassium chloride 20 mEq 40 meq PO PM 08/30/23 08/30/23 History tablet,extended release(part/cryst) tiotropium bromide 2.5 2 puff inhalation DAILY 08/30/23 08/30/23 History mcg/actuation mist for inhalation (Spiriva Respimat) New Prescriptions to Start Prescriptions: Allergies Allergy/AdvReac Type Severity Reaction Status Date / Time amoxicillin [From Amoxil] Allergy Verified 08/29/23 13:33 moxifloxacin [From Avelox] Allergy Verified 08/29/23 13:33 ofloxacin Allergy Verified 08/29/23 13:33 Quinidine-Quinine Analogues Allergy Verified 08/29/23 13:33 (Cincho rofecoxib [From Vioxx] Allergy Verified 08/29/23 13:33 tramadol Allergy Verified 08/29/23 13:33 Assessment and Plan *Assessment and plan (1) Atypical angina: Status: Acute Category: Medical Code(s): I20.8 - Other forms of angina pectoris (2) Shortness of Breath: Status: Acute Category: Medical Code(s): R06.02 - Shortness of breath (3) (HFpEF) heart failure with preserved ejection fraction: Status: Chronic Qualifiers: Heart failure chronicity: chronic Qualified Code(s): I50.32 - Chronic diastolic (congestive) heart failure Category: Medical Code(s): I50.30 - Unspecified diastolic (congestive) heart failure (4) CAD (coronary artery disease): Status: Chronic Qualifiers: Coronary Disease-Associated Artery/Lesion type: [place] artery [place] vs. transplanted heart: [place] heart Associated angina: without angina Qualified Code(s): I25.10 - Atherosclerotic heart disease of [place] coronary artery without angina pectoris Category: Medical Code(s): I25.10 - Atherosclerotic heart disease of [place] coronary artery without angina pectoris (5) HTN (hypertension): Status: Chronic Qualifiers: Hypertension type: primary hypertension Qualified Code(s): I10 - Essential (primary) hypertension Category: Medical Code(s): I10 - Essential (primary) hypertension (6) HLD (hyperlipidemia): Status: Chronic Qualifiers: Hyperlipidemia type: unspecified Qualified Code(s): E78.5 - Hyperlipidemia, unspecified Category: Medical Code(s): E78.5 - Hyperlipidemia, unspecified (7) TOMER and COPD overlap syndrome: Problem Comment: Baseline pulse oximetry on O2 2 L/min today was 87% and improved to 90% on 3 L. Status: Chronic Category: Medical Code(s): G47.33 - Obstructive sleep apnea (adult) (pediatric); J44.9 - Chronic obstructive pulmonary disease, unspecified (8) Abnormal cardiovascular stress test: Status: Acute Category: Medical Code(s): R94.39 - Abnormal result of other cardiovascular function study (9) Stenosis of carotid artery: Status: Acute Qualifiers: Laterality: bilateral Qualified Code(s): I65.23 - Occlusion and stenosis of bilateral carotid arteries Category: Medical Code(s): I65.29 - Occlusion and stenosis of unspecified carotid artery (10) Pulmonary hypertension: Status: Acute Category: Medical Code(s): I27.20 - Pulmonary hypertension, unspecified Plan Plan: 1. The patient was admitted to the hospital for an acute exacerbation of HFpEF. The patient will be diuresed with IV Lasix 40 mg twice daily as well as oral spironolactone. 2. Continue Jardiance for HFpEF. 3. Start Entresto 24/26 mg p.o. twice daily for HFpEF. 4. The patient continues to have worsening shortness of breath. She does have an abnormal stress test. The patient was in the process of being set up for an outpatient left cardiac catheterization due to her atypical angina and abnormal stress test. The patient has now been admitted for the same symptoms that have progressively worsened. Will plan to proceed with left cardiac catheterization today while she is hospitalized to evaluate her coronary artery disease. 5. The patient has been educated the risk and benefits of proceeding with left cardiac catheterization. The patient verbalized understanding and is agreeable in proceeding with the procedure. 6. The patient will be n.p.o. in preparation for left cardiac catheterization. 7. Coronary artery disease is present. See above. 8. Her blood pressure is well-controlled. 9. Her LDL goal is less than 55. Her LDL was 35 in July 2023. On a statin. 10. Her previous echocardiogram in July 2023 shows an RVSP greater than 60 mmHg. The patient will need aggressive diuresis. 11. Further recommendations will be made pending the patient's response to treatment. Thank you for the opportunity to participate in the care of this patient. All recommendations and orders are per Dr. Valladares.
[2023-08-30] MEDS: VERAPAMIL 2.5MG/ML 2ML VIAL 2.5 MG IV (14:40)
[2023-08-30] MEDS: HEPARIN 1,000 UNITS/500ML NS (CATH LAB) 3000 UNIT IV (14:40)
[2023-08-30] MEDS: 0.9 % SODIUM CHLORIDE 500 ML 25 ML IV (14:40)
[2023-08-30] MEDS: HEPARIN 1,000 UNITS/ML 10ML VIAL (CATH LAB) 10000 UNIT IV (14:40)
[2023-08-30] MEDS: diphenhydrAMINE 50MG/ML VIAL 50 MG IV (14:40)
[2023-08-30] MEDS: LIDOCAINE 1% 10ML MDV 20 ML IJ (14:40)
[2023-08-30] MEDS: NITROGLYCERIN 800MCG/8ML SYR (CATH LAB) 800 MCG IA (14:41)
[2023-08-30] MEDS: MIDAZOLAM HCL 1MG/1ML 5ML VIAL 1 MG IV (14:46)
[2023-08-30] MEDS: FENTANYL 100MCG/2ML VIAL 50 MCG IV (14:46)
[2023-08-30] MEDS: IOPAMIDOL-370 (76%);100ML BOTTLE 50 ML IV (15:13)
--- NOTE | 2023-08-30 16:19 | PC.NURSE ---
Patient's BP 77/38 and 88/44. laborer car barn called and nurse informed Dr. Jack. Per nurse, no new orders. Continue to monitor per Dr. Jack.
--- NOTE | 2023-08-30 16:51 | PC.NURSE ---
Patient's O2 sats 88% on 3L via nasal cannula. RT paged for charline. O2 increased to 4L
--- NOTE | 2023-08-30 17:38 | PC.NURSE ---
Pt alert and oriented. On 3-4L O2 via nasal cannula. 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 Up with 1 to BR for voids. Dilaudid pain pump for chronic pain. Denies other pain complaints. Continue diuretics and possible discharge home tomorrow.
[2023-08-30] MEDS: VITAMIN B-12 1,000 MCG 1ML VIAL 1000 MCG IM (18:00)
--- NOTE | 2023-08-30 18:30 | P.PN_ITS ---
Subjective *Date: 08/30/23 *Time: 21:58 Interval history: Patient stable on 2 to 3 L oxygen this morning on rounds. Denies any chest pain. No nausea or vomiting. BNP was elevated on admission at 5000. RVSP elevated. Tolerating diuresis. Has had over 1 L of negative urine output since admission. Electrolytes stable. Tolerating p.o. intake. Plan for heart cath today. Medical Exam Vital signs and Labs for Last 24 Hours: Vital Signs Temp Pulse Pulse Resp BP Pulse Ox O2 Del Method 08/30/23 18:20 97.4 F L 98 H 20 109/53 L 95 Nasal Cannula 08/30/23 16:28 80 08/30/23 17:44 97.6 F 90 20 111/56 L 95 Nasal Cannula 08/30/23 17:20 82 20 111/63 96 Nasal Cannula 08/30/23 17:00 Nasal Cannula 08/30/23 16:59 80 22 116/65 91 L Nasal Cannula 08/30/23 16:20 95 H 20 111/56 L 88 L Nasal Cannula 08/30/23 16:05 94 H 20 88/44 L 88 L Nasal Cannula 08/30/23 15:50 97.7 F 105 H 20 104/62 L 94 L Nasal Cannula 08/30/23 15:30 90 19 137/79 100 Simple Mask 08/30/23 15:15 89 19 138/79 100 08/30/23 15:10 105 H 19 117/82 100 Simple Mask 08/30/23 15:05 90 20 117/82 100 Simple Mask 08/30/23 15:11 97 H 79 20 155/94 H 98 Room Air 08/30/23 13:00 Nasal Cannula 08/30/23 13:23 79 08/30/23 13:23 70 08/30/23 10:54 Nasal Cannula 08/30/23 09:44 85 08/30/23 09:44 89 08/30/23 09:44 94 L Nasal Cannula 08/30/23 09:20 Nasal Cannula 08/30/23 08:00 98.2 F 91 H 16 118/83 94 L Nasal Cannula 08/30/23 07:55 94 L Nasal Cannula 08/30/23 07:00 Nasal Cannula 08/30/23 05:00 Nasal Cannula 08/30/23 05:42 92 L Nasal Cannula 08/30/23 05:41 80 08/30/23 05:41 82 08/30/23 04:00 98.2 F 68 18 127/70 94 L Nasal Cannula 08/30/23 03:00 Nasal Cannula 08/30/23 01:00 Nasal Cannula 08/29/23 23:00 Nasal Cannula 08/29/23 21:00 Nasal Cannula 08/29/23 23:00 Nasal Cannula 08/29/23 20:00 98.1 F 94 H 22 112/60 84 L Nasal Cannula 08/29/23 22:19 86 08/29/23 22:19 86 08/29/23 22:19 08/29/23 22:19 91 L Nasal Cannula 08/29/23 18:33 Nasal Cannula O2 Flow Rate FiO2 08/30/23 18:20 4 08/30/23 16:28 08/30/23 17:44 4 08/30/23 17:20 4 08/30/23 17:00 4 08/30/23 16:59 4 08/30/23 16:20 3 08/30/23 16:05 3 08/30/23 15:50 3 08/30/23 15:30 08/30/23 15:15 08/30/23 15:10 08/30/23 15:05 6 08/30/23 15:11 08/30/23 13:00 3 08/30/23 13:23 08/30/23 13:23 08/30/23 10:54 3 08/30/23 09:44 08/30/23 09:44 08/30/23 09:44 3 08/30/23 09:20 3 08/30/23 08:00 3 08/30/23 07:55 3 08/30/23 07:00 4 08/30/23 05:00 2 08/30/23 05:42 3 08/30/23 05:41 08/30/23 05:41 08/30/23 04:00 3 08/30/23 03:00 3 08/30/23 01:00 4 08/29/23 23:00 4 08/29/23 21:00 4 08/29/23 23:00 2 08/29/23 20:00 08/29/23 22:19 08/29/23 22:19 08/29/23 22:19 35 08/29/23 22:19 4 08/29/23 18:33 2 Intake and Output 08/30/23 08/30/23 08/30/23 07:59 15:59 23:59 Intake Total 1080 / 1680 600 / 1680 Output Total 600 / 1400 300 / 1400 500 / 1400 Balance 480 / 280 300 / 280 -500 / 280 Intake: Intake, Oral Amount 1080 / 1680 600 / 1680 Output: Output, Urine Amount 600 / 1400 300 / 1400 500 / 1400 Other: Weight 93.979 kg Patient Weight 08/30/23 23:59 Weight 93.979 kg Laboratory Results - last 24 hr 08/29/23 19:45: Troponin I < 0.01 08/30/23 06:45: WBC 3.9 L D, RBC 4.83, Hgb 10.6 L, Hct 35.8 L, MCV 74.2 L, MCH 22.0 L, MCHC 29.6 L, RDW 19.6 H, Plt Count 157, MPV 9.9, Neut % (Auto) 85.2 H, Lymph % (Auto) 11.5, [place] % (Auto) 3.2, Eos % (Auto) 0.1, Baso % (Auto) 0.2, Neut # (Auto) 3.4, Lymph # (Auto) 0.5 L, [place] # (Auto) 0.1, Eos # (Auto) 0.0, Baso # (Auto) 0.0, Total Counted 100, Neutrophils % (Manual) 88 H, Band Neutrophils % 4.0, Lymphocytes % (Manual) 8 L, Differential Comment , Hypersegmented Neuts 1+, Platelet Estimate Normal, Hypochromasia 1+, Poikilocytosis 1+, Anisocytosis 1+, Macrocytosis 1+, Spherocytes 1+, Target Cells 1+, Sodium 135 L, Potassium 3.7, Chloride 98, Carbon Dioxide 35 H, Anion Gap 5.7, BUN 7, Creatinine 0.50 L, Estimated Creat Clear 87, Estimated GFR 125, Est GFR ( Amer) 151 D, Glucose 130 H D, Calcium 8.0 L 08/30/23 11:50: WBC 7.0 D, RBC 4.82, Hgb 10.6 L, Hct 35.9 L, MCV 74.4 L, MCH 22.1 L, MCHC 29.6 L, RDW 19.6 H, Plt Count 134 L, MPV 8.8, Neut % (Auto) 84.6 H, Lymph % (Auto) 7.0 L, [place] % (Auto) 8.3, Eos % (Auto) 0.1, Baso % (Auto) 0.0 L, Neut # (Auto) 5.9, Lymph # (Auto) 0.5 L, [place] # (Auto) 0.6, Eos # (Auto) 0.0, Baso # (Auto) 0.0, Sodium 137, Potassium 3.5, Chloride 93 L, Carbon Dioxide 36 H , Anion Gap 11.5, BUN 11 D, Creatinine 0.60, Estimated Creat Clear 87, Estimated GFR 101, Est GFR ( Amer) 123, Glucose 105 H, Calcium 8.2 L I & O for Labs for Last 24 Hours: Intake & Output 08/27/23 08/28/23 08/29/23 08/30/23 23:59 23:59 23:59 23:59 Intake Total 630 / 1230 1680 / 1680 Output Total 2500 / 2500 1400 / 1400 Balance -1870 / -1270 280 / 280 Weight 99.79 kg 93.979 kg Constitutional: Present no acute distress, obese and chronically ill appearing Head: Present atraumatic ENT: Present normal exam Respiratory: Present prolonged expiratory phase, wheezes and normal respiratory effort; Absent rhonchi or crackles Cardiac: Present Reg Rate and Rhythm GI: Present soft and normal bowel sounds; Absent distention or tenderness Extremities: Present normal inspection, full ROM and edema (trace) Skin: Present intact; Absent erythema Neuro: Present Grossly Intact, alert, awake, oriented x 3 and moves all extremities Assessment and Plan *Assessment and plan (1) HTN (hypertension): Status: Chronic Qualifiers: Hypertension type: primary hypertension Qualified Code(s): I10 - Essential (primary) hypertension Category: Medical Code(s): I10 - Essential (primary) hypertension (2) HLD (hyperlipidemia): Status: Chronic Qualifiers: Hyperlipidemia type: unspecified Qualified Code(s): E78.5 - Hyperlipidemia, unspecified Category: Medical Code(s): E78.5 - Hyperlipidemia, unspecified (3) (HFpEF) heart failure with preserved ejection fraction: Status: Chronic Qualifiers: Heart failure chronicity: chronic Qualified Code(s): I50.32 - Chronic diastolic (congestive) heart failure Category: Medical Code(s): I50.30 - Unspecified diastolic (congestive) heart failure (4) TOMER and COPD overlap syndrome: Problem Comment: Baseline pulse oximetry on O2 2 L/min today was 87% and improved to 90% on 3 L. Status: Chronic Category: Medical Code(s): G47.33 - Obstructive sleep apnea (adult) (pediatric); J44.9 - Chronic obstructive pulmonary disease, unspecified Plan Patient is a 63-year-old female with past medical history of COPD CHF hypertension hyperlipidemia CAD who presented to hospital due to shortness of breath. According to the patient she has been having shortness of breath with exertion. She also has been having dry cough. She denies fever chills nausea vomiting diarrhea. Responding well to diuresis. -1.3 L overnight. Continues to require 2 to 3 L supplemental oxygen today. Cardiology consulted, appreciate their recommendations. Planning on left heart cath today. Problems addressed as follows: Acute hypoxic respiratory failure Acute on chronic heart failure with preserved ejection fraction HTN/HLD -Goal saturation greater 90%, currently 2 to 3 L. -BNP elevated to 5000 on admission. Continue diuresis, Lasix 40 mg twice daily. Responding well. -Cardiology consulted, concern for anginal equivalent. Planning for left heart cath. Further management pending findings. - Continue aspirin 81 mg daily. Continue statin 20 mg nightly. Initiate Jardiance 10 mg daily. Continue spironolactone 25 mg daily. Initiate Entresto 24/26 mg twice daily. Evaluate for response over the next 24 to 48 hours. COPD Exacerbation Leukocytosis likely reactive - Initiated on steroids, continue prednisone 40 mg daily. Continue DuoNebs every 4-6 hours. Continue azithromycin 500 mg daily for total of 5 days. - Advair ordered as maintenance therapy in place of Spiriva given formulary substitution Full code Cardiac diet
[2023-08-30] MEDS: AZITHROMYCIN 500 MG in 0.9 % SODIUM CHLORIDE 250 ML 250 MG IV (21:37)
[2023-08-30] MEDS: POTASSIUM CHLORIDE 20MEQ TAB 40 MEQ PO (21:38)
[2023-08-30] MEDS: ATORVASTATIN 20MG TABLET 20 MG PO (21:38)
[2023-08-30] MEDS: PRAMIPEXOLE 1MG TAB 1 MG PO (21:38)
[2023-08-30] MEDS: NICOTINE 21MG/24HR PATCH 21 MG TD (21:42)
[2023-08-31] VITALS: BP 97/51; PULSE 87; PULSE 91; RESP 20; TEMP 36.4; O2SAT 93
[2023-08-31] MEDS: IPRATROPIUM/ALBUTEROL 3 ML NEB IH ×2 (02:11→06:12)
[2023-08-31 02:12] VITALS: PULSE 74; PULSE 76
[2023-08-31] MEDS: HEPARIN SODIUM 5,000 UNIT/ML VIAL 5000 UNIT SQ (02:42)
[2023-08-31 04:00] VITALS: BP 106/47; PULSE 70; PULSE 76; RESP 20; TEMP 36.6; O2SAT 93; BMI 29.2
[2023-08-31 06:11] VITALS: PULSE 79; PULSE 83; O2SAT 94
[2023-08-31] MEDS: FLUTICASONE/SALMETEROL 250/50MCG DISKUS 1 PUFF IH (06:11)
[2023-08-31] MEDS: TIOTROPIUM 18MCG/PUFF INHALER 1 CAP IH (06:12)
[2023-08-31 06:41] LABS: Magnesium 1.8 mg/dl (1.6-2.3)
[2023-08-31 06:42] LABS: Anion Gap 4.2 mEq/L (5-15); Blood Urea Nitrogen 13 mg/dl (7-17); Calcium 8.2 mg/dl (8.4-10.2); Carbon Dioxide 39 mmol/L (22.0-30.0); Chloride 94 mmol/L (98-107); Creatinine Clearance Estimated 87 mL/min (50-200); Estimated Glomerular Filt Rate 101 ml/min (>60); GFR (African American) 123 ML/MIN (>60); Glucose 106 mg/dl (74-100); Potassium 3.2 mmoL/L (3.5-5.1); Sodium 134 mmol/L (136-145)
[2023-08-31 06:45] LABS: Basophils % 0.1 % (0.1-2.0); Hematocrit 34.7 % (37.0-47.0); Hemoglobin 10.3 g/dL (12.2-16.2); Lymphocytes # 1.2 K/mm3 (0.7-4.5); Lymphocytes % 13.1 % (10-50); Mean Corpuscular HGB Conc 29.7 g/dL (31.8-35.4); Mean Corpuscular Hemoglobin 21.9 pg (27.0-31.2); Mean Corpuscular Volume 73.8 fl (81-99); Mean Platelet Volume 9.3 fl (7.4-10.4); Monocytes # 0.6 K/mm3 (0.1-1.0); Neutrophils # 7.3 K/mm3 (1.8-7.8); Neutrophils % 80.8 % (37.0-80.0); Platelet Count 150 K/mm3 (142-424); Red Cell Distribution Width 19.7 % (11.5-17.5); White Blood Count 9.1 K/mm3 (4.8-10.8)
[2023-08-31 08:00] VITALS: BP 104/65; PULSE 89; PULSE 90; RESP 18; TEMP 36.6; O2SAT 96
[2023-08-31] MEDS: EMPAGLIFLOZIN 10MG TABLET 10 MG PO (09:51)
[2023-08-31] MEDS: predniSONE 20MG TAB 40 MG PO (09:52)
[2023-08-31] MEDS: ASPIRIN EC 81MG TABLET 81 MG PO (09:54)
[2023-08-31] MEDS: PANTOPRAZOLE 40MG TABLET 40 MG PO (09:54)
[2023-08-31] MEDS: SPIRONOLACTONE 25MG TABLET 25 MG PO (09:54)
[2023-08-31] MEDS: SACUBITRIL/VALSARTAN 24-26MG TABLET 1 EACH PO (10:01)
--- NOTE | 2023-08-31 11:05 | P.DS_ITS ---
General Admission date:: 08/29/23 Discharge date: 08/31/23 HPI HPI HPI: Patient is a 63-year-old female with past medical history of COPD CHF hypertension hyperlipidemia CAD who presented to hospital due to shortness of breath. According to the patient she has been having shortness of breath with exertion. She also has been having dry cough. She denies fever chills nausea vomiting diarrhea. Hospital Course Hospital Course Hospital Course: Patient is a 63-year-old female with past medical history of COPD CHF hypertension hyperlipidemia CAD who presented to hospital due to shortness of breath. According to the patient she has been having shortness of breath with exertion. She also has been having dry cough. She denies fever chills nausea vomiting diarrhea. Responded to diuresis during hospitalization. Cardiology was consulted and patient was taken for left heart cath. Stable oxygen requirement. Meeting criteria for discharge home. Problems addressed as follows: Acute hypoxic respiratory failure Acute on chronic heart failure with preserved ejection fraction HTN/HLD -BNP elevated to 5000 on admission. Initiated on diuresis with Lasix IV. Responded well with negative fluid balance during admission. Determined to have an acute exacerbation of heart failure with preserved ejection fraction. Transitioned to Lasix 80 mg p.o. daily at discharge. Left heart cath showed normal coronaries. No further recommendations at this time from a cardiac standpoint. The patient will need to follow-up in cardiology clinic in 1 to 2 weeks on an outpatient basis. - Continue aspirin 81 mg daily. Continue statin 20 mg nightly. Initiate Jardiance 10 mg daily. Continue spironolactone 25 mg daily. Initiate Entresto 24/26 mg twice daily. COPD Exacerbation Leukocytosis likely reactive - Initiated on steroids, continue prednisone 40 mg daily. Continue DuoNebs every 4-6 hours. Continue azithromycin 500 mg daily for total of 5 days. Advair ordered as maintenance therapy in place of Spiriva given formulary substitution during hospitalization. Resume Spiriva at discharge. Continues to require oxygen, at her baseline of 2 to 3 L. Spent 30 minutes in discharge counseling, documentation, chart review, and direct care with patient. Exam Data for Last 24 hours Vital signs and Labs for Last 24 Hours: Temp Pulse Resp BP Pulse Ox O2 Del Method O2 Flow Rate 97.9 F 89 18 104/65 L 96 Nasal Cannula 1 08/31/23 08:00 08/31/23 08:00 08/31/23 08:00 08/31/23 08:00 08/31/23 08:00 08/31/23 10:41 08/31/23 10:41 FiO2 35 08/29/23 22:19 Laboratory Results - last 24 hr 08/30/23 11:50: WBC 7.0 D, RBC 4.82, Hgb 10.6 L, Hct 35.9 L, MCV 74.4 L, MCH 22.1 L, MCHC 29.6 L, RDW 19.6 H, Plt Count 134 L, MPV 8.8, Neut % (Auto) 84.6 H, Lymph % (Auto) 7.0 L, [place] % (Auto) 8.3, Eos % (Auto) 0.1, Baso % (Auto) 0.0 L, Neut # (Auto) 5.9, Lymph # (Auto) 0.5 L, [place] # (Auto) 0.6, Eos # (Auto) 0.0, Baso # (Auto) 0.0, Sodium 137, Potassium 3.5, Chloride 93 L, Carbon Dioxide 36 H , Anion Gap 11.5, BUN 11 D, Creatinine 0.60, Estimated Creat Clear 87, Estimated GFR 101, Est GFR ( Amer) 123, Glucose 105 H, Calcium 8.2 L 08/31/23 05:48: WBC 9.1 D, RBC 4.70, Hgb 10.3 L, Hct 34.7 L, MCV 73.8 L, MCH 21.9 L, MCHC 29.7 L, RDW 19.7 H, Plt Count 150, MPV 9.3, Neut % (Auto) 80.8 H, Lymph % (Auto) 13.1, [place] % (Auto) 6.0, Eos % (Auto) 0.0 L, Baso % (Auto) 0.1, Neut # (Auto) 7.3, Lymph # (Auto) 1.2, [place] # (Auto) 0.6, Eos # (Auto) 0.0, Baso # (Auto) 0.0, Sodium 134 L, Potassium 3.2 L, Chloride 94 L, Carbon Dioxide 39 H, Anion Gap 4.2 L, BUN 13, Creatinine 0.60, Estimated Creat Clear 87, Estimated GFR 101, Est GFR ( Amer) 123, Glucose 106 H, Calcium 8.2 L, Magnesium 1.8 I & O for Last 24 hours: Intake & Output 08/28/23 08/29/23 08/30/23 08/31/23 23:59 23:59 23:59 23:59 Intake Total 630 / 1230 2880 / 2880 1650 / 1650 Output Total 2500 / 2500 3600 / 3800 1700 / 1700 Balance -1870 / -1270 -720 / -920 -50 / -50 Weight 99.79 kg 93.979 kg 94.755 kg Constitutional Constitutional: no acute distress, average body habitus, chronically ill appearing and cooperative *Routine HEENT Exam Head: Present normocephalic Eye: Present EOMI and PERRL ENT: Present mucous membranes moist *Routine Neck Exam Neck: Present supple; Absent lymphadenopathy *Routine Respiratory Exam Respiratory: Present CTA bilaterally, prolonged expiratory phase, wheezes and normal respiratory effort; Absent rhonchi or crackles *Routine Cardiovascular Exam Cardiovascular: Present RRR *Routine Abdominal Exam Abdominal: Present soft and normoactive bowel sounds; Absent tenderness *Routine Rectal Exam Patient deferred: visual exam *Routine Exam Patient deferred: external exam *Routine Extremities Exam Extremities: Absent cyanosis, clubbing or edema *Routine Skin Exam Skin: Present intact and warm; Absent rash *Routine Neurological Exam Neurological: Present alert, oriented X3 and moving all extremities; Absent altered mental status Results Data Completed and Pending Labs on day of discharge: Labs from last 24 hours 08/31/23 08/30/23 05:48 11:50 WBC 9.1 D 7.0 D RBC 4.70 4.82 Hgb 10.3 L 10.6 L Hct 34.7 L 35.9 L MCV 73.8 L 74.4 L MCH 21.9 L 22.1 L MCHC 29.7 L 29.6 L RDW 19.7 H 19.6 H Plt Count 150 134 L MPV 9.3 8.8 Neut % (Auto) 80.8 H 84.6 H Lymph % (Auto) 13.1 7.0 L [place] % (Auto) 6.0 8.3 Eos % (Auto) 0.0 L 0.1 Baso % (Auto) 0.1 0.0 L Neut # (Auto) 7.3 5.9 Lymph # (Auto) 1.2 0.5 L [place] # (Auto) 0.6 0.6 Eos # (Auto) 0.0 0.0 Baso # (Auto) 0.0 0.0 Sodium 134 L 137 Potassium 3.2 L 3.5 Chloride 94 L 93 L Carbon Dioxide 39 H 36 H Anion Gap 4.2 L 11.5 BUN 13 11 D Creatinine 0.60 0.60 Estimated Creat Clear 87 87 Estimated GFR 101 101 Est GFR ( Amer) 123 123 Glucose 106 H 105 H Calcium 8.2 L 8.2 L Magnesium 1.8 DS: Diagnosis Discharge Diagnosis (1) HTN (hypertension): Status: Chronic Code(s): I10 - Essential (primary) hypertension Qualifiers: Hypertension type: primary hypertension Qualified Code(s): I10 - Essential (primary) hypertension (2) HLD (hyperlipidemia): Status: Chronic Code(s): E78.5 - Hyperlipidemia, unspecified Qualifiers: Hyperlipidemia type: unspecified Qualified Code(s): E78.5 - Hyperlipidemia, unspecified (3) (HFpEF) heart failure with preserved ejection fraction: Status: Chronic Code(s): I50.30 - Unspecified diastolic (congestive) heart failure Qualifiers: Heart failure chronicity: chronic Qualified Code(s): I50.32 - Chronic diastolic (congestive) heart failure (4) 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 Code(s): G47.33 - Obstructive sleep apnea (adult) (pediatric); J44.9 - Chronic obstructive pulmonary disease, unspecified Problem details: Baseline pulse oximetry on O2 2 L/min today was 87% and improved to 90% on 3 L. Meds Home Medications and Allergies Home Medications Medication Instructions Recorded Confirmed Type aspirin 81 mg tablet,delayed 81 mg PO DAILY 08/09/22 08/29/23 History release (Adult Low Dose Aspirin) hydromorphone (PF) 1 mg/mL 1 mg SQ .COMPLEX PRN Pain 12/08/22 08/30/23 History injection syringe (Dilaudid (PF)) cyanocobalamin (vitamin B-12) 1,000 mcg IM MONTHLY Supplement 01/24/23 08/29/23 Rx 1,000 mcg/mL injection solution #10 mL fluticasone propionate 50 1 spray intranasal DAILYP PRN 04/04/23 08/30/23 History mcg/actuation nasal Allergies spray,suspension (Flonase Allergy Relief) spironolactone 25 mg tablet 25 mg PO DAILY Fluid #90 tabs 04/05/23 08/30/23 Rx atorvastatin 20 mg tablet 20 mg PO DAILY Cholesterol 90 days 04/15/23 08/29/23 Rx #90 tabs pregabalin 150 mg capsule 150 mg PO BID Pain 30 days #60 caps 04/15/23 08/30/23 Rx empagliflozin 10 mg tablet 10 mg PO DAILY Heart failure 30 04/28/23 08/29/23 Rx days #30 tabs fluticasone furoate 100 1 inh inhalation DAILY 05/24/23 08/29/23 History mcg-vilanterol 25 mcg/dose inhalation powder (Breo Ellipta) azithromycin 250 mg tablet 250 mg PO QMWF #45 tabs 05/30/23 08/29/23 Rx escitalopram oxalate 20 mg tablet 40 mg PO DAILY Depression 30 days 06/15/23 08/29/23 Rx #60 tabs inhalational spacing device #10 ea 08/11/23 08/29/23 Rx (Aerochamber MV spacer) pramipexole 1 mg tablet 1 mg PO HS 08/11/23 08/29/23 History alprazolam 0.5 mg tablet 0.5 mg PO BID PRN Anxiety #60 tabs 08/16/23 08/29/23 Rx albuterol sulfate 90 mcg/actuation 2 puff inhalation QIDP PRN 08/30/23 08/30/23 History aerosol inhaler Shortness Of Breath Or Wheezing colestipol 1 gram tablet 1 g PO BID 08/30/23 08/30/23 History ipratropium 0.5 mg-albuterol 3 mg 3 ml inhalation Q6HP PRN Shortness 08/30/23 08/30/23 History (2.5 mg base)/3 mL nebulization Of Breath Or Wheezing soln omeprazole 40 mg capsule,delayed 40 mg PO BID 08/30/23 08/30/23 History release potassium chloride 20 mEq 40 meq PO PM 08/30/23 08/30/23 History tablet,extended release(part/cryst) tiotropium bromide 2.5 2 puff inhalation DAILY 08/30/23 08/30/23 History mcg/actuation mist for inhalation (Spiriva Respimat) furosemide 40 mg tablet 40 mg PO BID 30 days #60 tabs 08/31/23 Rx sacubitril 24 mg-valsartan 26 mg 1 tab PO BID 30 days #60 tabs 08/31/23 Rx tablet (Entresto) New Prescriptions to Start Prescriptions: furosemide Yosvany Gant sacubitril-valsartan [Entresto] Yosvany Gant Allergies Allergy/AdvReac Type Severity Reaction Status Date / Time amoxicillin [From Amoxil] Allergy Verified 08/29/23 13:33 moxifloxacin [From Avelox] Allergy Verified 08/29/23 13:33 ofloxacin Allergy Verified 08/29/23 13:33 Quinidine-Quinine Analogues Allergy Verified 08/29/23 13:33 (Cincho rofecoxib [From Vioxx] Allergy Verified 08/29/23 13:33 tramadol Allergy Verified 08/29/23 13:33 Discharge Plan Disposition Patient Disposition: Home, Self-Care Condition: Fair Follow up Plan Follow up with: Keegan Green MD [Primary Care Provider] - 09/08/23 1:30 pm Rene Jack MD [Staff Physician] - 09/08/23 8:30 am Prescriptions/Medication Reconciliation: New Entresto 24-26 mg Tablet 1 tab PO BID 30 Days Qty: 60 0RF furosemide 40 mg tablet 40 mg PO BID 30 Days Qty: 60 0RF Continued aspirin [Adult Low Dose Aspirin] 81 mg tablet,delayed release (DR/EC) 81 mg PO DAILY Dilaudid (PF) 1 mg/mL syringe 1 mg SQ .COMPLEX PRN (Reason: Pain) Rx Instructions: Pain pump fluticasone propionate [Flonase Allergy Relief] 50 mcg/actuation spray,suspension 1 spray intranasal DAILYP PRN (Reason: Allergies) Rx Instructions: Administer 1 spray into each nostril pramipexole 1 mg tablet 1 mg PO HS cyanocobalamin (vitamin B-12) 1,000 mcg/mL solution 1,000 mcg IM MONTHLY Qty: 10 1RF spironolactone 25 mg tablet 25 mg PO DAILY Qty: 90 3RF atorvastatin 20 mg tablet 20 mg PO DAILY 90 Days Qty: 90 0RF pregabalin 150 mg capsule 150 mg PO BID 30 Days Qty: 60 2RF empagliflozin 10 mg tablet 10 mg PO DAILY 30 Days Qty: 30 2RF azithromycin 250 mg tablet 250 mg PO QMWF Qty: 45 2RF escitalopram oxalate 20 mg tablet 40 mg PO DAILY 30 Days Qty: 60 2RF (DME) Aerochamber MV Spacer See Rx Instructions .Route Qty: 10 1RF Rx Instructions: As directed alprazolam 0.5 mg tablet 0.5 mg PO BID PRN (Reason: Anxiety) Qty: 60 0RF fluticasone furoate-vilanterol [Breo Ellipta] 100-25 mcg/dose blister with device 1 inh inhalation DAILY ipratropium-albuterol 0.5 mg-3 mg(2.5 mg base)/3 mL solution for nebulization 3 ml INHALATION Q6HP PRN (Reason: Shortness Of Breath Or Wheezing) omeprazole 40 mg capsule,delayed release(DR/EC) 40 mg PO BID potassium chloride 20 mEq tablet,ER particles/crystals 40 meq PO PM albuterol sulfate 90 mcg/actuation HFA aerosol inhaler 2 puff INHALATION QIDP PRN (Reason: Shortness Of Breath Or Wheezing) Spiriva Respimat 2.5 mcg/actuation mist 2 puff INHALATION DAILY colestipol 1 gram tablet 1 g PO BID Discontinued furosemide 20 mg tablet 40 mg PO DAILY 30 Days Qty: 60 2RF Problem Reconciliation Problems Reviewed?: Yes Patient Discharge Instructions ACTIVITY: Continue current activity DIET: continue same diet Patient Instructions: Congestive Heart Failure (Alternative Therapy), Heart Failure Providers Primary Care Provider: Keegan Green Admit Provider: Stacey Fregoso Attending Provider: Stacey Fregoso
--- NOTE | 2023-08-31 12:23 | EXP.CARD.PN ---
Subjective Subjective Date: 08/31/23 Time: 09:30 Principal diagnosis: CHF, SOB Interval history: This is a 63-year-old white female presented to the hospital and was admitted for CHF exacerbation. The patient has been diuresed with IV Lasix. She also underwent left cardiac catheterization yesterday for an abnormal stress test and atypical angina. The patient was found to have normal coronary arteries. This morning she states that she is feeling much better. Her shortness of breath is significantly improved. She denies any lower extremity edema. She denies any chest pain, pressure, shortness of breath or edema. She denies any fever, chills, nausea, vomiting, diarrhea. Exam Data for Last 24 hours Vital signs and Labs for Last 24 Hours: Temp Pulse Resp BP Pulse Ox O2 Del Method O2 Flow Rate 97.9 F 89 18 104/65 L 96 Nasal Cannula 2 08/31/23 08:00 08/31/23 08:00 08/31/23 08:00 08/31/23 08:00 08/31/23 08:00 08/31/23 11:30 08/31/23 11:30 FiO2 35 08/29/23 22:19 Laboratory Results - last 24 hr 08/30/23 11:50: Sodium 137, Potassium 3.5, Chloride 93 L, Carbon Dioxide 36 H, Anion Gap 11.5, BUN 11 D, Creatinine 0.60, Estimated Creat Clear 87, Estimated GFR 101, Est GFR ( Amer) 123, Glucose 105 H, Calcium 8.2 L 08/31/23 05:48: WBC 9.1 D, RBC 4.70, Hgb 10.3 L, Hct 34.7 L, MCV 73.8 L, MCH 21.9 L, MCHC 29.7 L, RDW 19.7 H, Plt Count 150, MPV 9.3, Neut % (Auto) 80.8 H, Lymph % (Auto) 13.1, [place] % (Auto) 6.0, Eos % (Auto) 0.0 L, Baso % (Auto) 0.1, Neut # (Auto) 7.3, Lymph # (Auto) 1.2, [place] # (Auto) 0.6, Eos # (Auto) 0.0, Baso # (Auto) 0.0, Sodium 134 L, Potassium 3.2 L, Chloride 94 L, Carbon Dioxide 39 H, Anion Gap 4.2 L, BUN 13, Creatinine 0.60, Estimated Creat Clear 87, Estimated GFR 101, Est GFR ( Amer) 123, Glucose 106 H, Calcium 8.2 L, Magnesium 1.8 I & O for Last 24 hours: Intake & Output 08/28/23 08/29/23 08/30/23 08/31/23 23:59 23:59 23:59 23:59 Intake Total 630 / 1230 2880 / 2880 1650 / 1650 Output Total 2500 / 2500 3600 / 3800 1700 / 1700 Balance -1870 / -1270 -720 / -920 -50 / -50 Weight 220 lb 207 lb 3 oz 208 lb 14.4 oz Constitutional Constitutional: no acute distress and average body habitus *Routine HEENT Exam Head: Present normocephalic and atraumatic ENT: Present mucous membranes moist *Routine Neck Exam Neck: Present supple, full ROM and normal carotid upstroke; Absent JVD, carotid bruit or lymphadenopathy *Routine Respiratory Exam Respiratory: Present CTA bilaterally, normal respiratory effort, able to speak in complete sentences and symmetric chest movement *Routine Cardiovascular Exam Cardiovascular: Present RRR, Normal S1 and Normal S2; Absent murmur or gallop *Routine Abdominal Exam Abdominal: Present soft and normoactive bowel sounds; Absent tenderness, distended or organomegaly *Routine Extremities Exam Extremities: Present full ROM, pulses intact and normal capillary refill; Absent cyanosis, clubbing or edema *Routine Skin Exam Skin: Present intact and warm; Absent erythema *Routine Neurological Exam Neurological: Present alert, oriented X3 and CN II-XII intact; Absent sensory deficit or motor deficit Routine Psychiatric Exam Psychiatric: Present normal affect Progress Note: A&P Assessment and plan (1) (HFpEF) heart failure with preserved ejection fraction: Status: Chronic (2) HTN (hypertension): Status: Chronic (3) HLD (hyperlipidemia): Status: Chronic (4) TOMER and COPD overlap syndrome: Problem details: Baseline pulse oximetry on O2 2 L/min today was 87% and improved to 90% on 3 L. Status: Chronic Assessment and Plan Assessment and Plan for All Diagnoses:: Plan: 1. The patient was admitted to the hospital for an acute exacerbation of HFpEF. She has been diuresed with IV Lasix. She does have a negative fluid balance overnight. Recommend that she be switched over to Lasix 80 mg p.o. daily prior to discharge home. 2. Continue Jardiance and Entresto for HFpEF. 3. Left cardiac catheterization showed normal coronary arteries. 4. Her blood pressure is well-controlled. 5. Her LDL goal is less than 100. Her LDL is 35. She is on a statin. 6. No further recommendations at this time from a cardiac standpoint. The patient is stable for discharge home today from a cardiac standpoint. The patient will need to follow-up in cardiology clinic in 1 to 2 weeks on an outpatient basis. Thank you for the opportunity to participate in the care of this patient. All recommendations and orders are per Dr. Valladares.
--- NOTE | 2023-09-01 15:51 | CARE MANAGER ---
Called and spoke with patient regarding recent discharge. Patient stated that she is doing well, has started new medication and was aware of scheduled f/u appts. Patient had no concerns at time of call.
== END 2023-08-31 14:05 | disposition home or self-care (01) ==
LOC: ER 15:17 → 2ND 16:26
PROVIDERS: Internal Medicine; Internal Medicine Adolescent Medicine; Nurse Practitioner Family; Admitting Provider Internal Medicine; Emergency Provider Emergency Medicine; PCP Family Medicine; Visit Provider Internal Medicine
PROC: B2111ZZ Fluoroscopy of Multiple Coronary Arteries using Low Osmolar Contrast (ICD-10-PCS; principal; 2023-08-30 14:00)
DX: I11.0 Hypertensive heart disease with heart failure (principal); E78.5 Hyperlipidemia, unspecified; G47.33 Obstructive sleep apnea (adult) (pediatric); I65.23 Occlusion and stenosis of bilateral carotid arteries; I27.20 Pulmonary hypertension, unspecified; F17.210 Nicotine dependence, cigarettes, uncomplicated; E66.9 Obesity, unspecified; Z68.29 Body mass index [BMI] 29.0-29.9, adult; J84.10 Pulmonary fibrosis, unspecified; E87.1 Hypo-osmolality and hyponatremia; J44.1 Chronic obstructive pulmonary disease with (acute) exacerbation; J96.01 Acute respiratory failure with hypoxia; I50.33 Acute on chronic diastolic (congestive) heart failure
CPT/HCPCS: 36415; 71045; 80048; 80053; 82803; 83735; 83880; 84484; 85007; 85025; 93005; 93454; 94640; 94660; 94760; 94761; 99152; 99291; C1725; C1769; G0378; J0456; J1644; J2405; Q9967

== ENCOUNTER → 2023-09-08 09:32 | Outpatient (POV) | payer MEDICARE, MEDICAID, SELFPAY ==
[2023-09-08 09:48] VITALS: BP 127/79; PULSE 83; RESP 18; O2SAT 94; BMI 29.1
--- NOTE | 2023-09-08 10:11 | P.PCN_ITS ---
Procedure Date: 09/08/23 Time: 10:11 Anesthesiologist:: Georgiana Zelaya APRN Complications:: None Pre-procedure Diagnosis:: Degenerative disc disease of lumbar spine with lumbar radiculopathy symptoms, right knee pain, degenerative disc disease of cervical spine with cervical radiculopathy symptoms Post-procedure Diagnosis:: Same Indications for Procedure:: Patient is a pleasant 63-year-old female who presents today for follow-up of cervical CT and intrathecal adjustment and reprogram. We are currently treating the patient for degenerative disc disease of cervical and lumbar spine with cervical and lumbar radiculopathy symptoms, right knee pain. Today she rates her pain a 9 out of 10. Patient denies any new trauma or injury. She states she continues to have chronic pain in her low back, neck and right knee. Patient does state that has released her from his care for her knee pain. Patient states that he did do an x-ray and stated there were no acute findings and that they did try intra-articular injections that helped some. Patient states she continues to have pain and swelling with popping and cracking of this joint. Patient is currently managed with a intrathecal pump with Dilaudid 1 mg/mL with a daily dose of 0.26 mg/day. Patient denies any side effects from this medication. She has an at home refill patient. Patient is also prescribed pregabalin 150 mg twice a day and alprazolam 0.5 mg twice a day from her PCP. Her Je has been reviewed and is appropriate. Physical Exam: General: Alert and oriented x3, no acute distress, pleasant and cooperative Lungs: Respirations even and unlabored, symmetrical chest expansion Eyes: PERRL Musculoskeletal: Flexion and extension of right knee somewhat guarded secondary to pain, [antalgic gait noted] Neurological: Speech clear, no gross sensory deficit Procedure Details:: Informed consent was obtained and the risk and benefits of the procedure were explained to the patient. Patient was taken to the procedure room where noninvasive monitoring was placed including noninvasive blood pressure cuff and pulse oximeter. Patient's pump was interrogated and was reprogrammed to Dilaudid 0.273mg/day. The patient tolerated the procedure well with no c omplications. Plan and Disposition:: Patient tolerated her intrathecal increase with no complications and was discharged neurologically intact. I will order a CT of her right knee without contrast to rule out possible meniscus tear or other injuries. We will follow- up after her imaging for reevaluation of symptoms and plan of care. Patient has been instructed to contact the clinic with any concerns before the next appointment. Dr. Shields has reviewed this note and agrees with this plan of care. This note was dictated using voice recognition software and make contain errors or omissions. -- It Is medically necessary for this patient to continue to have their intrathecal pump refilled at regular intervals. This patient had an intrathecal pain pump implanted after meeting criteria of chronic intractable pain for greater than 3 months and failing conservative treatments. Patient has committed and been compliant to the treatment plan and all planned follow up care. Since implantation of the intrathecal pain pump, the patient has had decreased pain and been more functional. Oral medications have been reduced including intake of oral opioids. Patient continues to do well with intrathecal therapy with decrease in pain symptoms and increase in functional status. Stopping intrathecal medications can lead to life threatening withdrawal, seizures, cardiac arrest, severe pain, and possible . Pumps that are not refilled at regular intervals can be damages and cause and need for replacement. We continually titrate dose and concentration to optimize pain relief and function. We are limited in concentration for certain drugs to safely deliver medications through the pump and stay within the recommendations from the Polyanalges[employer] Consensus Committee Guidelines. Depending on dose and concentration these pumps may need to be refilled sooner than 3 months as we titrate.
== END | disposition home or self-care (01) ==
PROVIDERS: PCP Family Medicine; Visit Provider Nurse Practitioner Family
DX: R19.7 Diarrhea, unspecified (principal); M51.16 Intervertebral disc disorders with radiculopathy, lumbar region; M25.561 Pain in right knee; M50.10 Cervical disc disorder with radiculopathy, unspecified cervical region; Z97.8 Presence of other specified devices; Z45.1 Encounter for adjustment and management of infusion pump
CPT/HCPCS: 62368; 87635; 99213; G0463

== ENCOUNTER 2023-09-19 20:25 | Outpatient (CLI) | payer MEDICARE, MEDICAID, SELFPAY ==
[2023-09-19 20:49] LABS: Basophils % 0.4 % (0.1-2.0); Eosinophils # 0.1 K/mm3 (0.0-0.4); Eosinophils % 1.7 % (0.1-12.0); Hematocrit 38.9 % (37.0-47.0); Hemoglobin 11.4 g/dL (12.2-16.2); Lymphocytes # 1.4 K/mm3 (0.7-4.5); Lymphocytes % 22.2 % (10-50); Mean Corpuscular HGB Conc 29.3 g/dL (31.8-35.4); Mean Corpuscular Hemoglobin 21.7 pg (27.0-31.2); Mean Corpuscular Volume 73.9 fl (81-99); Mean Platelet Volume 10.6 fl (7.4-10.4); Monocytes # 0.3 K/mm3 (0.1-1.0); Neutrophils # 4.3 K/mm3 (1.8-7.8); Neutrophils % 70.6 % (37.0-80.0); Platelet Count 145 K/mm3 (142-424); Red Blood Count 5.27 M/mm3 (4.20-5.40); Red Cell Distribution Width 19.8 % (11.5-17.5); White Blood Count 6.1 K/mm3 (4.8-10.8)
[2023-09-19 21:08] LABS: Blood Urea Nitrogen 8 mg/dl (7-17); Calcium 8.7 mg/dl (8.4-10.2); Carbon Dioxide 33 mmol/L (22.0-30.0); Chloride 97 mmol/L (98-107); Estimated Glomerular Filt Rate 101 ml/min (>60); GFR (African American) 123 ML/MIN (>60); Glucose 93 mg/dl (74-100); Sodium 134 mmol/L (136-145)
== END 2023-09-19 23:59 ==
LOC: LAB.DROPOF 20:26
PROVIDERS: PCP Family Medicine; Visit Provider Family Medicine
DX: E87.6 Hypokalemia (principal); R53.83 Other fatigue
CPT/HCPCS: 80048; 85025

== ENCOUNTER 2023-09-23 19:23 | Inpatient (IN) | payer MEDICARE, MEDICAID, SELFPAY ==
--- NOTE | 2023-09-23 20:11 | XR_ITS ---
PROCEDURE INFORMATION: Exam: XR Chest Exam date and time: 09/24/2023 12:29 AM Age: 63 years old Clinical indication: Other: Chf TECHNIQUE: Imaging protocol: Radiologic exam of the chest. Views: 1 view. COMPARISON: CR XR CHEST PORTABLE 08/29/2023 1:35 PM FINDINGS: Lungs: There is mild pulmonary edema. Pleural spaces: No large pleural effusion . Heart/Mediastinum: Stable cardiac and mediastinal contours. Bones/joints: No evidence of acute osseous abnormalities within the visualized portions of the thoracic spine and ribs. Osseous structures appear appropriate for patient age. IMPRESSION: There is mild pulmonary edema. No large pleural effusion .
--- NOTE | 2023-09-23 20:55 | HMH.ITSTN ---
Patient not in her room for pcxr. They will call when patients ready for pcxr.
--- NOTE | 2023-09-23 23:54 | ECG_ITS ---
APPROVED REPORT Exam: Resting ECG HR:97 bpm ECG Measurements Heart Rate 97 AXES DE 140 P 76 QRSd 113 QRS 81 QT 349 T 72 QTc 403 Conclusion SINUS RHYTHM INCOMPLETE RIGHT BUNDLE BRANCH BLOCK [90+ ms QRS DURATION, TERMINAL R IN V1/V2, 40+ ms S IN I/aVL/V4/V5/V6] ST DEVIATION AND MODERATE T-WAVE ABNORMALITY, CONSIDER ANTEROLATERAL ISCHEMIA [-0.1+ mV T-WAVE IN V3-V6] ABNORMAL ECG UNCONFIRMED REPORT Electronically signed by : Jack Mathis MD 09/24/2023 21:17:19
[2023-09-24] VITALS (8 sets, daily range): BP systolic 84–139; BP diastolic 46–65; PULSE 80–100; RESP 16–20; TEMP 36.4–36.8; O2SAT 90–97; BMI 29.9
--- NOTE | 2023-09-24 00:04 | PC.NURSE ---
Patient arrived to floor with EMS from [facility] at 23:45.
[2023-09-24 01:03] LABS: Basophils % 0.2 % (0.1-2.0); Eosinophils % 0.1 % (0.1-12.0); Hematocrit 38.8 % (37.0-47.0); Hemoglobin 11.4 g/dL (12.2-16.2); Lymphocytes # 0.4 K/mm3 (0.7-4.5); Lymphocytes % 6.9 % (10-50); Mean Corpuscular HGB Conc 29.5 g/dL (31.8-35.4); Mean Corpuscular Volume 74.6 fl (81-99); Monocytes # 0.1 K/mm3 (0.1-1.0); Monocytes % 1.6 % (1.7-9.3); Neutrophils # 5.9 K/mm3 (1.8-7.8); Neutrophils % 91.2 % (37.0-80.0); Platelet Count 117 K/mm3 (142-424); Red Blood Count 5.21 M/mm3 (4.20-5.40); White Blood Count 6.5 K/mm3 (4.8-10.8)
[2023-09-24 01:04] LABS: MANUAL DIFFERENTIAL MANUAL DIFFERENTIAL (MANUAL DIFF)
[2023-09-24 01:16] LABS: Alanine Aminotransferase 403 U/L (12-78); Alkaline Phosphatase 101 U/L (38-126); Bilirubin,Total 0.8 mg/dl (0.2-1.3); Blood Urea Nitrogen 13 mg/dl (7-17); Calcium 8.6 mg/dl (8.4-10.2); Carbon Dioxide 32 mmol/L (22.0-30.0); Chloride 97 mmol/L (98-107); Creatinine Clearance Estimated 90 mL/min (50-200); Estimated Glomerular Filt Rate 63 ml/min (>60); GFR (African American) 77 ML/MIN (>60); Globulin 3.1 g/dL (1.3-3.2); Glucose 115 mg/dl (74-100); Sodium 134 mmol/L (136-145); Total Protein,Serum 6.1 g/dl (6.3-8.2)
[2023-09-24 01:21] LABS: Aspartate Amino Transferase 733 U/L (14-36)
[2023-09-24 01:27] LABS: NT Pro Brain Natriuretic Pep. 10300 pg/mL (0-125)
[2023-09-24 01:30] LABS: Troponin I 1.26 ng/ml (0.00-0.034)
[2023-09-24 01:32] LABS: PTT Heparin (inpatient only) 31.5 Seconds (23.6-34.0)
--- NOTE | 2023-09-24 01:42 | P.HP_ITS ---
History of Present Illness *Admission Date: 09/23/23 *Reason for visit:: NSTEMI *History of present illness: 63 year old female presented to [facility] via direct transfer from [facility]. She presented to [facility] ED with c/o SOA and weakness since 09/03/2023. At [facility] the pt's troponins and liver enzymes where elevated. Upon admission the pt's initial troponin is 1.26, AST 733 and ALT 403. She was given 80mg IV Lasix and started on a heparin gtt prior to transfer. PMHX of HTN, HLD, CHF, CAD, COPD, Tobacco abuse, and obesity. UPon arrival pt appears jaundice and is still c/o SOA. She will receive a Cardiac consult and continue the lasix and heparin gtt. [facility] Disclaimer: The information contained in this section may have been updated after the patient was seen, as this information can be updated by other users. Medical History (Updated 09/24/23 @ 02:08 by ALIA Rodriguez) Abnormal cardiovascular stress test Allergic rhinitis Allergic rhinitis, unspecified Allergic rhinitis, unspecified Anxiety Anxiety Asthma Atypical angina Bilateral leg pain Bilateral leg pain Bilateral low back pain with sciatica CAD (coronary artery disease) Cataract CHF (congestive heart failure) Chronic bronchitis Chronic bronchitis Congestive heart failure COPD (chronic obstructive pulmonary disease) COPD (chronic obstructive pulmonary disease) COPD (chronic obstructive pulmonary disease) COPD mixed type Cough Depression Dyspnea Dyspnea on exertion Edema Elevated left ventricular end-diastolic pressure (LVEDP) Encounter for screening for malignant neoplasm of lung in current smoker with 30 pack year history or greater Encounter for screening for malignant neoplasm of lung in current smoker with 30 pack year history or greater Eosinophilia Eosinophilia Eosinophilia Fatigue Fibromyalgia Fibromyalgia GERD (gastroesophageal reflux disease) History of gastroesophageal reflux (GERD) Hyperlipidemia Hyperlipidemia Hypertension Hypokalemia Hypothyroidism Leg pain 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, 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 Lung nodule Lung nodule Neuropathy Obesity (BMI 30-39.9) Osteoarthritis Pneumonia Pulmonary fibrosis Pulmonary fibrosis, unspecified Pulmonary hypertension Rectal prolapse Screening for lung cancer Shortness of Breath Sore throat Stenosis of carotid artery TMJ dysfunction Tobacco abuse Tobacco abuse counseling Tobacco abuse counseling Tobacco abuse counseling Tobacco abuse counseling Tobacco abuse disorder Tobacco dependence syndrome Unspecified asthma, uncomplicated Surgical History (Updated 09/24/23 @ 00:25 by Arcelia Brown RN) History of arthroscopy of knee History of bladder suspension procedure History of cardiac cath History of section History of colonoscopy History of hemorrhoidectomy History of hysterectomy History of sinus surgery History of spinal surgery Family History Mother Hypertension Family history of acute congestive heart failure Father No problems noted. Social History Smoking Status: Current every day smoker tobacco type: cigarettes packs per day: 1 years smoked: 40 second hand exposure: Yes alcohol intake: never substance use type: denies use current occupational status: disabled Travel in the last 8 weeks: None household members: spouse housing: house current occupational exposures/hazards: No caffeine: Yes bobby/zoroastrianism: Pentecostal Review of Systems *Cardiovascular Cardiovascular: Reports dyspnea *Respiratory Respiratory: Reports dyspnea *Gastrointestinal Gastrointestinal: Reports system reviewed and no additional complaints, except as documented *Genitourinary Genitourinary: Reports system reviewed and no additional complaints, except as documented *Musculoskeletal Musculoskeletal: Reports system reviewed and no additional complaints, except as documented *Neurologic Neurologic: Reports system reviewed and no additional complaints, except as documented Meds Home Medications and Allergies Home Medications Medication Instructions Recorded Confirmed Type aspirin 81 mg tablet,delayed 81 mg PO DAILY 08/09/22 09/24/23 History release (Adult Low Dose Aspirin) hydromorphone (PF) 1 mg/mL 1 mg SQ .COMPLEX PRN Pain 12/08/22 09/24/23 History injection syringe (Dilaudid (PF)) cyanocobalamin (vitamin B-12) 1,000 mcg IM MONTHLY Supplement 01/24/23 09/24/23 Rx 1,000 mcg/mL injection solution #10 mL fluticasone propionate 50 1 spray intranasal DAILYP PRN 04/04/23 09/24/23 History mcg/actuation nasal Allergies spray,suspension (Flonase Allergy Relief) spironolactone 25 mg tablet 25 mg PO DAILY Fluid #90 tabs 04/05/23 09/24/23 Rx empagliflozin 10 mg tablet 10 mg PO DAILY Heart failure 30 04/28/23 09/24/23 Rx days #30 tabs fluticasone furoate 100 1 inh inhalation DAILY 05/24/23 09/24/23 History mcg-vilanterol 25 mcg/dose inhalation powder (Breo Ellipta) inhalational spacing device #10 ea 08/11/23 09/24/23 Rx (Aerochamber MV spacer) pramipexole 1 mg tablet 1 mg PO HS 08/11/23 09/24/23 History albuterol sulfate 90 mcg/actuation 2 puff inhalation QIDP PRN 08/30/23 09/24/23 History aerosol inhaler Shortness Of Breath Or Wheezing colestipol 1 gram tablet 1 g PO BID 08/30/23 09/24/23 History ipratropium 0.5 mg-albuterol 3 mg 3 ml inhalation Q6HP PRN Shortness 08/30/23 09/24/23 History (2.5 mg base)/3 mL nebulization Of Breath Or Wheezing soln omeprazole 40 mg capsule,delayed 40 mg PO BID 08/30/23 09/24/23 History release potassium chloride 20 mEq 40 meq PO PM 08/30/23 09/24/23 History tablet,extended release(part/cryst) tiotropium bromide 2.5 2 puff inhalation DAILY 08/30/23 09/24/23 History mcg/actuation mist for inhalation (Spiriva Respimat) furosemide 40 mg tablet 40 mg PO BID 30 days #60 tabs 08/31/23 09/24/23 Rx sacubitril 24 mg-valsartan 26 mg 1 tab PO BID 30 days #60 tabs 08/31/23 09/24/23 Rx tablet (Entresto) varenicline 0.5 mg (11)-1 mg (42) See Rx Instructions PO PER PKG DIR 09/08/23 09/24/23 Rx tablets in a dose pack (Chantix #53 tabs Starting Month Box) varenicline 1 mg tablet (Chantix 1 mg PO BID #60 tabs 09/08/23 09/24/23 Rx Continuing Month Box) ondansetron 4 mg disintegrating 4 mg PO BID PRN nausea and 09/19/23 09/24/23 Rx tablet vomiting 5 days #10 tabs promethazine 25 mg tablet 25 mg PO Q6H PRN nausea and 09/20/23 09/24/23 Rx vomiting #20 tabs alprazolam 0.5 mg tablet 0.5 mg PO DAILY 09/24/23 09/24/23 History atorvastatin 20 mg tablet 20 mg PO HS Cholesterol 09/24/23 09/24/23 History azithromycin 250 mg tablet 250 mg PO DIRECTED 09/24/23 09/24/23 History escitalopram oxalate 20 mg tablet 40 mg PO HS Depression 09/24/23 09/24/23 History pregabalin 150 mg capsule 150 mg PO DAILY Pain 09/24/23 09/24/23 History New Prescriptions to Start Prescriptions: Allergies Allergy/AdvReac Type Severity Reaction Status Date / Time amoxicillin [From Amoxil] Allergy Verified 09/19/23 15:03 moxifloxacin [From Avelox] Allergy Verified 09/19/23 15:03 ofloxacin Allergy Verified 09/19/23 15:03 Quinidine-Quinine Analogues Allergy Verified 09/19/23 15:03 (Cincho rofecoxib [From Vioxx] Allergy Verified 09/19/23 15:03 tramadol Allergy Verified 09/19/23 15:03 Exam Data for Last 24 hours Vital signs and Labs for Last 24 Hours: Temp Pulse Resp BP Pulse Ox O2 Del Method O2 Flow Rate 97.9 F 97 H 20 129/59 L 97 Nasal Cannula 2 09/24/23 00:20 09/24/23 00:20 09/24/23 00:20 09/24/23 00:20 09/24/23 00:20 09/24/23 01:19 09/24/23 01:19 Laboratory Results - last 24 hr 09/24/23 00:35: WBC 6.5, RBC 5.21, Hgb 11.4 L, Hct 38.8, MCV 74.6 L, MCH 22.0 L, MCHC 29.5 L, RDW 20.0 H, Plt Count 117 L, MPV 9.0, Neut % (Auto) 91.2 H, Lymph % (Auto) 6.9 L, [place] % (Auto) 1.6 L, Eos % (Auto) 0.1, Baso % (Auto) 0.2, Neut # (Auto) 5.9, Lymph # (Auto) 0.4 L, [place] # (Auto) 0.1, Eos # (Auto) 0.0, Baso # (Auto) 0.0, APTT 31.5, Sodium 134 L, Potassium 4.0, Chloride 97 L, Carbon Dioxide 32 H, Anion Gap 9.0, BUN 13, Creatinine 0.90, Estimated Creat Clear 90, Estimated GFR 63, Est GFR ( Amer) 77, Glucose 115 H, Calcium 8.6, Total Bilirubin 0.8, AST 733 H*, ALT 403 H*, Alkaline Phosphatase 101, Troponin I 1.26 H, NT-Pro-B Natriuret Pep 57471 H, Total Protein 6.1 L, Albumin 3.0 L, Globulin 3.1, Albumin/Globulin Ratio 1.0 L I & O for Last 24 hours: Intake & Output 09/21/23 09/22/23 09/23/23 09/24/23 23:59 23:59 23:59 23:59 Weight 97.211 kg *Routine HEENT Exam Head: Present normocephalic Eye: Present EOMI ENT: Present mucous membranes dry *Routine Neck Exam Neck: Present full ROM *Routine Respiratory Exam Respiratory: Present accessory muscle use and crackles *Routine Cardiovascular Exam Cardiovascular: Present irregular rhythm *Routine Abdominal Exam Abdominal: Present soft and tenderness *Routine Rectal Exam Rectal:: deferred *Routine Genitalia Exam Genitalia:: deferred *Routine Extremities Exam Extremities: Present full ROM; Absent edema *Routine Skin Exam Skin: Present jaundice *Routine Neurological Exam Neurological: Present alert and oriented X3 Assessment and Plan *Assessment and plan (1) NSTEMI (non-ST elevated myocardial infarction): Status: Acute Category: Medical Code(s): I21.4 - Non-ST elevation (NSTEMI) myocardial infarction (2) CHF exacerbation: Status: Acute Category: Medical Code(s): I50.9 - Heart failure, unspecified (3) Transaminitis: Status: Acute Category: Medical Code(s): R74.01 - Elevation of levels of liver transaminase levels (4) COPD (chronic obstructive pulmonary disease): Status: Acute Category: Medical Code(s): J44.9 - Chronic obstructive pulmonary disease, unspecified (5) HTN (hypertension): Status: Chronic Qualifiers: Hypertension type: primary hypertension Qualified Code(s): I10 - Essential (primary) hypertension Category: Medical Code(s): I10 - Essential (primary) hypertension (6) HLD (hyperlipidemia): Status: Chronic Qualifiers: Hyperlipidemia type: unspecified Qualified Code(s): E78.5 - Hyperlipidemia, unspecified Category: Medical Code(s): E78.5 - Hyperlipidemia, unspecified (7) Tobacco abuse: Status: Acute Category: Medical Code(s): Z72.0 - Tobacco use (8) Obesity: Status: Chronic Qualifiers: Obesity type: due to excess calories Obesity classification: adult class 1 (BMI 30 - 34.9) Serious obesity comorbidity presence: with serious comorbidity Body mass index: BMI 30.0-30.9 Qualified Code(s): E66.09 - Other obesity due to excess calories; Z68.30 - Body mass index [BMI] 30.0-30.9, adult Category: Medical Code(s): E66.9 - Obesity, unspecified Plan 63 year old female presented to [facility] via direct transfer from [facility]. She presented to [facility] ED with c/o SOA and weakness since 09/03/2023. At [facility] the pt's troponins and liver enzymes where elevated. Upon admission the pt's initial troponin is 1.26, AST 733 and ALT 403. She was given 80mg IV Lasix and started on a heparin gtt prior to transfer. PMHX of HTN, HLD, CHF, COPD, Tobacco abuse, and obesity. UPon arrival pt appears jaundice and is still c/o SOA. She will receive a Cardiac consult and continue the lasix and heparin gtt. Pt has intrathecal pump for her degenerative disc disease. NSTEMI CHF EXAC -Cardiology consult -Trend troponins -Continue hep gtt -Lasix 40 mg BID -Strict I/O w/ external de la cruz cath -EKG reviewed and reveals ST depression -Chest xray reviewed and reveals pulmonary edema TRANSAMINITIS -AST 733 and ALT 403 -Hepatitis panel pending -holding liver injuring medications COPD HTN HLD -Duoneb q 6hr as need -contniue home medications of albuterol, aspirin, jardiance, lexapro, and entresto -Maintain o2 above 92 % -currently at 2 L baseline TOBACCO ABUSE -nicotine patched PRN OBESITY -complicates all aspects of care FULL CODE NPO @ MIDNIGHT HEP GTT
[2023-09-24 01:46] LABS: Creatine Kinase 80 U/L (30-135)
[2023-09-24 02:00] LABS: Acetaminophen < 10 ug/ml (10-30)
[2023-09-24] MEDS: HEPARIN SODIUM,PORCINE/D5W 500 ML 20 UNIT IV (02:04)
[2023-09-24] MEDS: HEPARIN SODIUM 5,000 UNIT/ML VIAL 4000 UNIT IV ×2 (02:05→09:54)
[2023-09-24 02:20] LABS: Hypochromasia 1+; Lymphocytes % 7 % (10-50); Microcytosis 2+; Monocytes % 1 % (2-9); Neutrophils % 92 % (42-76); Platelet Estimate Slight Decrease; Total Cells Counted 100
[2023-09-24 02:21] LABS: Anisocytosis 1+
[2023-09-24 02:22] LABS: Ovalocytes 1+; Spherocytes 1+
[2023-09-24 06:58] LABS: Basophils % 0.2 % (0.1-2.0); Hematocrit 36.7 % (37.0-47.0); Hemoglobin 10.9 g/dL (12.2-16.2); Lymphocytes # 0.7 K/mm3 (0.7-4.5); Lymphocytes % 14.2 % (10-50); Mean Corpuscular HGB Conc 29.6 g/dL (31.8-35.4); Mean Corpuscular Volume 74.2 fl (81-99); Mean Platelet Volume 10.8 fl (7.4-10.4); Monocytes # 0.2 K/mm3 (0.1-1.0); Neutrophils # 4.2 K/mm3 (1.8-7.8); Neutrophils % 82.6 % (37.0-80.0); Platelet Count 122 K/mm3 (142-424); Red Blood Count 4.94 M/mm3 (4.20-5.40); Red Cell Distribution Width 19.8 % (11.5-17.5)
[2023-09-24 07:01] LABS: Chloride 99 mmol/L (98-107); Potassium 3.9 mmoL/L (3.5-5.1); Sodium 134 mmol/L (136-145)
[2023-09-24 07:04] LABS: Alanine Aminotransferase 376 U/L (12-78); Albumin Level 2.8 g/dl (3.5-5.0); Albumin/Globulin Ratio 0.9 (1.1-1.8); Alkaline Phosphatase 101 U/L (38-126); Anion Gap 7.9 mEq/L (5-15); Aspartate Amino Transferase 599 U/L (14-36); Bilirubin,Total 0.7 mg/dl (0.2-1.3); Blood Urea Nitrogen 15 mg/dl (7-17); Calcium 8.5 mg/dl (8.4-10.2); Carbon Dioxide 31 mmol/L (22.0-30.0); Cholesterol 85 mg/dl (140-200); Creatinine Clearance Estimated 90 mL/min (50-200); Estimated Glomerular Filt Rate 85 ml/min (>60); GFR (African American) 103 ML/MIN (>60); Glucose 112 mg/dl (74-100); Total Protein,Serum 5.8 g/dl (6.3-8.2); Triglycerides 82 mg/dl (30-150); VLDL Cholesterol 16 mg/dL (0-40)
[2023-09-24 07:05] LABS: Chol/HDL Ratio 2.4 (1-3.5); HDL Cholesterol 36 mg/dl (40-60)
[2023-09-24 07:16] LABS: Direct LDL Cholesterol 40.56 mg/dL (100-129)
[2023-09-24 09:41] LABS: PTT Heparin (inpatient only) 38.4 Seconds (23.6-34.0)
[2023-09-24] MEDS: SACUBITRIL/VALSARTAN 24-26MG TABLET 1 EACH PO ×2 (09:42→23:24)
[2023-09-24] MEDS: ASPIRIN EC 81MG TABLET 81 MG PO (09:42)
[2023-09-24] MEDS: EMPAGLIFLOZIN 10MG TABLET 10 MG PO (09:42)
[2023-09-24] MEDS: CITALOPRAM 40MG TABLET 40 MG PO (09:42)
[2023-09-24] MEDS: FUROSEMIDE 40MG/4ML VIAL 40 MG IV ×2 (09:42→16:49)
[2023-09-24] MEDS: SPIRONOLACTONE 25MG TABLET 25 MG PO (09:46)
[2023-09-24] MEDS: ALPRAZolam 0.5MG TABLET 0.5 MG PO (09:46)
[2023-09-24] MEDS: PANTOPRAZOLE 40MG TABLET 40 MG PO ×2 (09:46→20:39)
[2023-09-24] MEDS: TIOTROPIUM 18MCG/PUFF INHALER 1 CAP IH (10:19)
--- NOTE | 2023-09-24 10:56 | HMH.PHAINT1 ---
Pharmacy Intervention Comments: MEDICATION RECONCILIATION COMPLETED ON PATIENT USING EXTERNAL FILL HISTORY FROM PHARMACY. -AIXA HOPKINS, ASHLYND
--- NOTE | 2023-09-24 11:25 | P.CONPHA_ITS ---
[facility] Pharmacy Heparin Dosing Demographic Data Admission date:: 09/24/23 Date: 09/24/23 Time: 11:25 Allergies Allergy/AdvReac Type Severity Reaction Status Date / Time moxifloxacin [From Avelox] Allergy Intermediate Rash Verified 09/26/23 11:47 ofloxacin Allergy Unknown Verified 09/26/23 11:47 allergy reaction Quinidine-Quinine Analogues Allergy Unknown Verified 09/26/23 11:47 (Cincho allergy reaction rofecoxib [From Vioxx] Allergy Unknown Verified 09/26/23 11:47 allergy reaction tramadol Allergy Unknown Verified 09/26/23 11:47 allergy reaction amoxicillin [From Amoxil] AdvReac Intermediate NAUSEA/VOMI Verified 09/26/23 11:47 TING Height: 1.8 m Weight: 97.3 kg Indication Medication therapy:: Heparin Current Active Problems (Updated 09/26/23 @ 10:57 by Margi Wilson MD) Pneumonia (Acute) Acute and chronic respiratory failure with hypoxia (Acute) NSTEMI (non-ST elevated myocardial infarction) (Acute) Transaminitis (Acute) Tobacco abuse (Acute) COPD (chronic obstructive pulmonary disease) (Acute) HTN (hypertension) (Chronic) HLD (hyperlipidemia) (Chronic) Obesity (Chronic) CHF exacerbation (Acute) CVA?: No Bleeding problem?: No Kidney disease?: No GA?: No Desired PTT range:: 50-75 seconds Labs Anticoagulation Lab Results:: 09/24/23 09/24/23 00:35 06:14 Hgb 11.4 L 10.9 L Hct 38.8 36.7 L Plt Count 117 L 122 L Monitoring Dose Monitor 1: Date: 09/24/23 Time: 01:30 PTT Result:: 31.5 Infusion Rate:: 1,000 UNITS/HR Comment:: 4,000 UNIT BOLUS Dose Monitor 2: Date: 09/24/23 Time: 08:55 PTT Result:: 38.4 Infusion Rate:: INCREASE RATE TO 1,350 UNITS/HR Comment:: 4,000 UNIT BOLUS Dose Monitor 3: Date: 09/24/23 Time: 16:00 PTT Result:: >200.0 Infusion Rate:: DECREASE TO 1050 UNITS/HR Dose Monitor 4: Date: 09/24/23 Time: 20:20 PTT Result:: 33.8 Infusion Rate:: INCREASE RATE TO 1200 UNITS/HR Comment:: 2,000 UNIT BOLUS Dose Monitor 5: Date: 09/25/23 Time: 02:00 PTT Result:: 37.9 Infusion Rate:: INCREASE RATE TO 1500 UNITS/HR Comment:: 4000 UNIT BOLUS Dose Monitor 6: Date: 09/25/23 Time: 08:56 PTT Result:: 47.0 Infusion Rate:: INCREASE RATE TO 1700 UNITS/HR Comment:: NO BOLUS Dose Monitor 7: Date: 09/25/23 Time: 15:45 PTT Result:: 32.0 Infusion Rate:: INCREASE RATE TO 2,100 UNITS/HR Comment:: 4,000 UNIT BOLUS Dose Monitor 8: Date: 09/25/23 Time: 23:00 PTT Result:: 86.1 Infusion Rate:: DECREASE RATE TO 2,000 UNITS/HR Dose Monitor 9: Date: 09/26/23 Time: 06:00 PTT Result:: 67.5 Infusion Rate:: 2,000 UNITS/HR Dose Monitor 10: Date: 09/26/23 Time: 12:00 Comment:: HEPARIN DRIP STOPPED Core Measures Is INR > or = 2 at discharge?: No Most Recent Labs:: Laboratory Results - last 24 hr 09/24/23 00:35: WBC 6.5, RBC 5.21, Hgb 11.4 L, Hct 38.8, MCV 74.6 L, MCH 22.0 L, MCHC 29.5 L, RDW 20.0 H, Plt Count 117 L, MPV 9.0, Neut % (Auto) 91.2 H, Lymph % (Auto) 6.9 L, [place] % (Auto) 1.6 L, Eos % (Auto) 0.1, Baso % (Auto) 0.2, Neut # (Auto) 5.9, Lymph # (Auto) 0.4 L, [place] # (Auto) 0.1, Eos # (Auto) 0.0, Baso # (Auto) 0.0, Total Counted 100, Neutrophils % (Manual) 92 H, Lymphocytes % (Manual) 7 L, Monocytes % (Manual) 1 L, Platelet Estimate Slight decrease, Hypochromasia 1+, Anisocytosis 1+, Microcytosis 2+, Spherocytes 1+, Ovalocytes 1+, APTT 31.5, Sodium 134 L, Potassium 4.0, Chloride 97 L, Carbon Dioxide 32 H, Anion Gap 9.0, BUN 13, Creatinine 0.90, Estimated Creat Clear 90, Estimated GFR 63, Est GFR ( Amer) 77, Glucose 115 H, Calcium 8.6, Total Bilirubin 0.8, AST 733 H*, ALT 403 H*, Alkaline Phosphatase 101, Total Creatine Kinase 80, Troponin I 1.26 H, NT-Pro-B Natriuret Pep 79354 H, Total Protein 6.1 L, Albumin 3.0 L, Globulin 3.1, Albumin/Globulin Ratio 1.0 L, Acetaminophen < 10 L 09/24/23 06:14: WBC 5.0, RBC 4.94, Hgb 10.9 L, Hct 36.7 L, MCV 74.2 L, MCH 22.0 L, MCHC 29.6 L, RDW 19.8 H, Plt Count 122 L, MPV 10.8 H, Neut % (Auto) 82.6 H, Lymph % (Auto) 14.2, [place] % (Auto) 3.0, Eos % (Auto) 0.0 L, Baso % (Auto) 0.2, Neut # (Auto) 4.2, Lymph # (Auto) 0.7, [place] # (Auto) 0.2, Eos # (Auto) 0.0, Baso # (Auto) 0.0, Sodium 134 L, Potassium 3.9, Chloride 99, Carbon Dioxide 31 H, Anion Gap 7.9, BUN 15, Creatinine 0.70 D, Estimated Creat Clear 90, Estimated GFR 85, Est GFR ( Amer) 103 D, Glucose 112 H, Calcium 8.5, Magnesium 2.0, Total Bilirubin 0.7, AST 599 H*, ALT 376 H*, Alkaline Phosphatase 101, Troponin I 1.30 H, Total Protein 5.8 L, Albumin 2.8 L, Globulin 3.0, Albumin/Globulin Ratio 0.9 L, Triglycerides 82, Cholesterol 85 L, LDL Cholesterol Direct 40.56 L, VLDL Cholesterol 16, HDL Cholesterol 36 L, Cholesterol/HDL Ratio 2.4 09/24/23 08:55: APTT 38.4 H Were Heparin and Warfarin started on the same day?: No If not, why?: HEPARIN DRIP STOPPED AFTER CATH
[2023-09-24 16:39] LABS: PTT Heparin (inpatient only) > 200.0 Seconds (23.6-34.0)
[2023-09-24] MEDS: ONDANSETRON 4MG ODT 4 MG SL (16:49)
--- NOTE | 2023-09-24 17:02 | PC.NURSE ---
PT IS RESTING IN BED. ALERT AND ORIENTED X4. OFFERED TO GET PT UP AND SHE STATED SHE FEELS TO WEAK AND DIZZY. LUNG SOUNDS DIMINISHED WITH SCATTERED WHEEZES. ABDOMEN SOFT/NON TENDER WITH ACTIVE BOWEL SOUNDS. PAIN PUMP NOTED TO THE RIGHT LOWER BACK. PURWICK IN PLACE. NEW US GUIDED IV ACCESS NOTED TO THE EBONI. WILL CONTINUE TO MONITOR.
[2023-09-24] MEDS: ATORVASTATIN 20MG TABLET 20 MG PO (20:39)
[2023-09-24] MEDS: PRAMIPEXOLE 1MG TAB 1 MG PO (20:39)
[2023-09-24 20:46] LABS: PTT Heparin (inpatient only) 33.8 Seconds (23.6-34.0)
[2023-09-24] MEDS: HEPARIN SODIUM 5,000 UNIT/ML VIAL 2000 UNIT IV (21:12)
[2023-09-24] MEDS: ONDANSETRON 4MG/2ML VIAL 4 MG IV (22:51)
[2023-09-25] VITALS (14 sets, daily range): BP systolic 74–97; BP diastolic 45–60; PULSE 77–110; RESP 16–21; TEMP 36.4–36.9; O2SAT 53–97; BMI 29.9
[2023-09-25 02:25] LABS: PTT Heparin (inpatient only) 37.9 Seconds (23.6-34.0)
[2023-09-25] MEDS: HEPARIN SODIUM 5,000 UNIT/ML VIAL 4000 UNIT IV ×2 (02:38→17:17)
[2023-09-25] MEDS: HEPARIN SODIUM,PORCINE/D5W 500 ML 30 UNIT IV (02:38)
[2023-09-25] MEDS: TIOTROPIUM 18MCG/PUFF INHALER 1 CAP IH (06:15)
--- NOTE | 2023-09-25 09:35 | PC.NURSE ---
spoke with MD regarding pt hypotension, lethargy and weakness.
[2023-09-25] MEDS: HEPARIN SODIUM,PORCINE/D5W 500 ML 34 UNIT IV (09:41)
[2023-09-25 09:48] LABS: Basophils % 0.1 % (0.1-2.0); Eosinophils # 0.1 K/mm3 (0.0-0.4); Eosinophils % 0.5 % (0.1-12.0); Hematocrit 35.1 % (37.0-47.0); Hemoglobin 10.6 g/dL (12.2-16.2); Lymphocytes # 1.7 K/mm3 (0.7-4.5); Lymphocytes % 15.6 % (10-50); Mean Corpuscular HGB Conc 30.2 g/dL (31.8-35.4); Mean Corpuscular Hemoglobin 22.1 pg (27.0-31.2); Mean Platelet Volume 8.1 fl (7.4-10.4); Monocytes # 0.8 K/mm3 (0.1-1.0); Monocytes % 7.2 % (1.7-9.3); Neutrophils # 8.1 K/mm3 (1.8-7.8); Neutrophils % 76.6 % (37.0-80.0); Platelet Count 137 K/mm3 (142-424); Red Blood Count 4.81 M/mm3 (4.20-5.40); Red Cell Distribution Width 20.1 % (11.5-17.5); White Blood Count 10.6 K/mm3 (4.8-10.8)
[2023-09-25 09:50] LABS: Chloride 90 mmol/L (98-107); Potassium 3.2 mmoL/L (3.5-5.1); Sodium 132 mmol/L (136-145)
[2023-09-25 09:52] LABS: Blood Urea Nitrogen 16 mg/dl (7-17); Creatinine Clearance Estimated 89 mL/min (50-200); Estimated Glomerular Filt Rate 73 ml/min (>60); GFR (African American) 88 ML/MIN (>60)
[2023-09-25 09:53] LABS: Alanine Aminotransferase 285 U/L (12-78); Albumin Level 2.8 g/dl (3.5-5.0); Albumin/Globulin Ratio 0.9 (1.1-1.8); Alkaline Phosphatase 85 U/L (38-126); Anion Gap 6.2 mEq/L (5-15); Aspartate Amino Transferase 173 U/L (14-36); Bilirubin,Total 0.7 mg/dl (0.2-1.3); Calcium 8.3 mg/dl (8.4-10.2); Carbon Dioxide 39 mmol/L (22.0-30.0); Glucose 112 mg/dl (74-100); Total Protein,Serum 5.8 g/dl (6.3-8.2)
--- NOTE | 2023-09-25 09:57 | PC.NURSE ---
pt is drowsy. I spoke to her about her pain pump but she is unable to tell me what her dosage is or who its through. I relayed to MD. labs ordered
[2023-09-25 10:01] LABS: NT Pro Brain Natriuretic Pep. 3180 pg/mL (0-125)
[2023-09-25] MEDS: EMPAGLIFLOZIN 10MG TABLET 10 MG PO (12:22)
[2023-09-25] MEDS: CITALOPRAM 40MG TABLET 40 MG PO (12:22)
[2023-09-25] MEDS: ASPIRIN EC 81MG TABLET 81 MG PO (12:22)
[2023-09-25] MEDS: PANTOPRAZOLE 40MG TABLET 40 MG PO ×2 (12:22→20:04)
[2023-09-25] MEDS: SPIRONOLACTONE 25MG TABLET 25 MG PO (12:22)
--- NOTE | 2023-09-25 14:43 | EXP.PN ---
Subjective *Date: 09/25/23 *Time: 14:43 Interval history: patient was seen and evaluated at the bedside. Her BP has dropped but do not fell dizzy, denied any acute events overnight, denies chest pain, shortness of breath, nausea, vomiting, abdominal pain. Exam Data for Last 24 hours Vital signs and Labs for Last 24 Hours: Temp Pulse Resp BP Pulse Ox O2 Del Method O2 Flow Rate 98.4 F 90 21 92/51 L 92 L Nasal Cannula 3 09/25/23 11:44 09/25/23 12:00 09/25/23 11:44 09/25/23 11:44 09/25/23 11:44 09/25/23 12:58 09/25/23 12:58 Laboratory Results - last 24 hr 09/24/23 15:55: APTT > 200.0 H* 09/24/23 20:20: APTT 33.8 09/25/23 02:00: APTT 37.9 H 09/25/23 08:56: APTT 47.0 H 09/25/23 08:58: WBC 10.6 D, RBC 4.81, Hgb 10.6 L, Hct 35.1 L, MCV 73.0 L, MCH 22.1 L, MCHC 30.2 L, RDW 20.1 H, Plt Count 137 L, MPV 8.1, Neut % (Auto) 76.6, Lymph % (Auto) 15.6, [place] % (Auto) 7.2, Eos % (Auto) 0.5, Baso % (Auto) 0.1, Neut # (Auto) 8.1 H, Lymph # (Auto) 1.7, [place] # (Auto) 0.8, Eos # (Auto) 0.1, Baso # (Auto) 0.0, Sodium 132 L, Potassium 3.2 L, Chloride 90 L, Carbon Dioxide 39 H, Anion Gap 6.2, BUN 16, Creatinine 0.80, Estimated Creat Clear 89, Estimated GFR 73, Est GFR ( Amer) 88, Glucose 112 H, Calcium 8.3 L, Total Bilirubin 0.7, AST 173 H D, ALT 285 H, Alkaline Phosphatase 85, NT-Pro-B Natriuret Pep 3180 H, Total Protein 5.8 L, Albumin 2.8 L, Globulin 3.0, Albumin/Globulin Ratio 0.9 L I & O for Last 24 hours: Intake & Output 09/22/23 09/23/23 09/24/23 09/25/23 23:59 23:59 23:59 23:59 Intake Total 810 / 1050 1130 / 1130 Output Total 2750 / 3550 2600 / 2600 Balance -1940 / -2500 -1470 / -1470 Weight 97.3 kg 97.159 kg Constitutional Constitutional: no acute distress *Routine HEENT Exam Head: Present normocephalic Eye: Present EOMI and PERRL ENT: Present mucous membranes moist *Routine Neck Exam Neck: Present supple; Absent lymphadenopathy *Routine Respiratory Exam Respiratory: Present CTA bilaterally *Routine Cardiovascular Exam Cardiovascular: Present RRR *Routine Abdominal Exam Abdominal: Present soft and normoactive bowel sounds; Absent tenderness *Routine Extremities Exam Extremities: Absent cyanosis, clubbing or edema *Routine Skin Exam Skin: Present warm; Absent rash *Routine Neurological Exam Neurological: Present alert and oriented X3 Assessment and Plan *Assessment and plan (1) NSTEMI (non-ST elevated myocardial infarction): Status: Acute Category: Medical Code(s): I21.4 - Non-ST elevation (NSTEMI) myocardial infarction (2) CHF exacerbation: Status: Acute Category: Medical Code(s): I50.9 - Heart failure, unspecified (3) Transaminitis: Status: Acute Category: Medical Code(s): R74.01 - Elevation of levels of liver transaminase levels (4) COPD (chronic obstructive pulmonary disease): Status: Acute Category: Medical Code(s): J44.9 - Chronic obstructive pulmonary disease, unspecified (5) HTN (hypertension): Status: Chronic Qualifiers: Hypertension type: primary hypertension Qualified Code(s): I10 - Essential (primary) hypertension Category: Medical Code(s): I10 - Essential (primary) hypertension (6) HLD (hyperlipidemia): Status: Chronic Qualifiers: Hyperlipidemia type: unspecified Qualified Code(s): E78.5 - Hyperlipidemia, unspecified Category: Medical Code(s): E78.5 - Hyperlipidemia, unspecified (7) Tobacco abuse: Status: Acute Category: Medical Code(s): Z72.0 - Tobacco use (8) Obesity: Status: Chronic Qualifiers: Obesity type: due to excess calories Obesity classification: adult class 1 (BMI 30 - 34.9) Serious obesity comorbidity presence: with serious comorbidity Body mass index: BMI 30.0-30.9 Qualified Code(s): E66.09 - Other obesity due to excess calories; Z68.30 - Body mass index [BMI] 30.0-30.9, adult Category: Medical Code(s): E66.9 - Obesity, unspecified Plan 63 year old female presented to [facility] via direct transfer from [facility]. She presented to [facility] ED with c/o SOA and weakness since 09/03/2023. At [place] the pt's troponins and liver enzymes where elevated. Upon admission the pt's initial troponin is 1.26, AST 733 and ALT 403. She was given 80mg IV Lasix and started on a heparin gtt prior to transfer. PMHX of HTN, HLD, CHF, COPD, Tobacco abuse, and obesity. UPon arrival pt appears jaundice and is still c/o SOA. She will receive a Cardiac consult and continue the lasix and heparin gtt. Pt has intrathecal pump for her degenerative disc disease. NSTEMI CHF EXAC -Cardiology consult -Trend troponins -Continue hep gtt -Lasix 40 mg BID - hold due to low BP -Strict I/O w/ external de la cruz cath -EKG reviewed and reveals ST depression -Chest xray reviewed and reveals pulmonary edema TRANSAMINITIS -AST 733 and ALT 403 -Hepatitis panel pending -holding liver injuring medications COPD HTN HLD -Duoneb q 6hr as need -contniue home medications of albuterol, aspirin, jardiance, lexapro, and entresto -Maintain o2 above 92 % -currently at 2 L baseline TOBACCO ABUSE -nicotine patched PRN OBESITY -complicates all aspects of care FULL CODE NPO @ MIDNIGHT HEP GTT NPO after MN, for possible cath tomorrow, monitor on telemetry holding lasix for low BP
[2023-09-25] MEDS: POTASSIUM CHLORIDE 20MEQ TAB 40 MEQ PO (14:58)
[2023-09-25 16:59] LABS: PTT Heparin (inpatient only) 31.2 Seconds (23.6-34.0)
[2023-09-25] MEDS: HEPARIN SODIUM,PORCINE/D5W 500 ML 42 UNIT IV (17:17)
--- NOTE | 2023-09-25 17:23 | PC.NURSE ---
Pt has appeared to rest well in her room this shift. pt is a/o x 3 with reorientation needed about the situation. pt lung sounds are clear but diminished t/o. bowel sounds are active in all quads. pt has been able to ambulate to [place] with assist x 1 to void this shift. pt reports last bm was 2-3 days ago. nad noted.
[2023-09-25] MEDS: PRAMIPEXOLE 1MG TAB 1 MG PO (20:04)
[2023-09-25] MEDS: ATORVASTATIN 20MG TABLET 20 MG PO (20:04)
[2023-09-25] MEDS: MELATONIN 5MG TABLET 5 MG PO (22:22)
[2023-09-25 23:59] LABS: PTT Heparin (inpatient only) 86.1 Seconds (23.6-34.0)
[2023-09-26] VITALS (13 sets, daily range): BP systolic 81–119; BP diastolic 45–60; PULSE 69–96; RESP 18–24; TEMP 36.5–36.9; O2SAT 91–100; BMI 29.7
[2023-09-26] MEDS: HEPARIN SODIUM,PORCINE/D5W 500 ML 40 UNIT IV ×2 (00:07→04:55)
--- NOTE | 2023-09-26 05:00 | PC.NURSE ---
Patient has had an okay shift. has had neck pain, provider notified. Patient did have relief of that neck pain with a placement of a warm blanket and reposition. Oxygen saturations through the night have had moments of being in the low 80s oxygen would be increased to 4L NC and patient would rebound and then be able to wean back down to 3L NC stating appropriately in the low 90s. Patient did not complain of SOB ever through the shift even when saturations were in the low 80s. No other issues though the shift. Patient did get up multiple times to the bedside and sat in the chair for 3hrs.
[2023-09-26 06:04] LABS: Basophils % 0.3 % (0.1-2.0); Eosinophils # 0.1 K/mm3 (0.0-0.4); Eosinophils % 1.6 % (0.1-12.0); Hematocrit 33.7 % (37.0-47.0); Hemoglobin 9.9 g/dL (12.2-16.2); Lymphocytes # 1.4 K/mm3 (0.7-4.5); Lymphocytes % 19.8 % (10-50); Mean Corpuscular HGB Conc 29.4 g/dL (31.8-35.4); Mean Corpuscular Hemoglobin 21.5 pg (27.0-31.2); Mean Corpuscular Volume 73.2 fl (81-99); Mean Platelet Volume 9.6 fl (7.4-10.4); Monocytes # 0.6 K/mm3 (0.1-1.0); Monocytes % 8.2 % (1.7-9.3); Neutrophils % 70.1 % (37.0-80.0); Platelet Count 120 K/mm3 (142-424); White Blood Count 7.1 K/mm3 (4.8-10.8)
[2023-09-26 06:13] LABS: PTT Heparin (inpatient only) 67.5 Seconds (23.6-34.0)
[2023-09-26] MEDS: TIOTROPIUM 18MCG/PUFF INHALER 1 CAP IH (06:22)
--- NOTE | 2023-09-26 06:27 | PC.NURSE ---
spoke to [facility] for PTT result to [facility]. Recheck PTT in 6hr. [facility] to put that order in
--- NOTE | 2023-09-26 07:37 | PC.NURSE ---
pt is increasingly drowsy this am. I spoke to the MD regarding her oxygen saturation on 4lnc and mental status. Placed pt on a nonrebreather and saturation is now 99%. previously in the 60s on 4lnc
--- NOTE | 2023-09-26 09:23 | CA_ITS ---
APPROVED REPORT EXAM: Limited 2D Echocardiogram Director Of Strategic Alliances: Tricia Landin CRT Ht: 5 ft 11 in Wt: 212lbs BSA: 2.16 BP: 120/88 mmHg Indications: EF check M-Mode Dimensions RVDd 4.08 cm (0.9-2.6) LA Diam 3.63 cm (1.9-4.0) LVDd 5.12 cm (3.5-5.7) LVDs 2.72 cm (3.5-5.7) IVSd 0.86 cm (0.6-1.1) PWd 0.57 cm (0.6-1.1) EF (Teich) 78.00% FS 46.90% EDV (Teich) 124.90 mL ESV (Teich) 27.50 mL Other Information Study Quality: Technically Difficult Conclusion This is a limited TTE to evaluate for LVEF and RV function. Limited windows were obtained. Technically difficult study due to poor acoustic windows. The left ventricle is normal in size. There is increased LV wall thickness. There are no regional wall motion abnormalities noted. Septal flattening is present, consistent with RV pressure/volume overload. LVEF is 55%. The right ventricle is moderately to severely dilated. There is moderate reduction in RV systolic function. There is increased RV wall thickness. Trivial pericardial effusion is present. The IVC appears plethoric. Electronically signed by : Isabel Valladares MD 09/26/2023 22:23:40
[2023-09-26] MEDS: SPIRONOLACTONE 25MG TABLET 25 MG PO (09:24)
[2023-09-26] MEDS: PANTOPRAZOLE 40MG TABLET 40 MG PO (09:24)
[2023-09-26] MEDS: ASPIRIN EC 81MG TABLET 81 MG PO (09:24)
[2023-09-26] MEDS: CITALOPRAM 40MG TABLET 40 MG PO (09:24)
[2023-09-26] MEDS: EMPAGLIFLOZIN 10MG TABLET 10 MG PO (09:24)
--- NOTE | 2023-09-26 09:30 | PC.NURSE ---
dosage of heparin drip unchanged by pharmacy. will continue to monitor
--- NOTE | 2023-09-26 09:55 | P.CONS_ITS ---
History of Present Illness History of present illness: Ms. Shaw is a 63-year-old female greater than [id number] smoking history, severe COPD, lung nodules on triple inhaler therapy advised on 1-2 L nasal cannula oxygen supplementation presented to the ER complaining of worsening respiratory distress pulmonary was called for further evaluation and management. Patient admits gradually worsening respiratory distress and also not associated with any fever/change in sputum color, associayed with worsening productive phlegm. [facility] Disclaimer: The information contained in this section may have been updated after the patient was seen, as this information can be updated by other users. Medical History (Updated 09/26/23 @ 10:57 by Margi Wilson MD) Abnormal cardiovascular stress test Acute and chronic respiratory failure with hypoxia Allergic rhinitis Allergic rhinitis, unspecified Allergic rhinitis, unspecified Anxiety Anxiety Asthma Atypical angina Bilateral leg pain Bilateral leg pain Bilateral low back pain with sciatica CAD (coronary artery disease) Cataract CHF (congestive heart failure) Chronic bronchitis Chronic bronchitis Congestive heart failure COPD (chronic obstructive pulmonary disease) COPD (chronic obstructive pulmonary disease) COPD (chronic obstructive pulmonary disease) COPD mixed type Cough Depression Dyspnea Dyspnea on exertion Edema Elevated left ventricular end-diastolic pressure (LVEDP) Encounter for screening for malignant neoplasm of lung in current smoker with 30 pack year history or greater Encounter for screening for malignant neoplasm of lung in current smoker with 30 pack year history or greater Eosinophilia Eosinophilia Eosinophilia Fatigue Fibromyalgia Fibromyalgia GERD (gastroesophageal reflux disease) History of gastroesophageal reflux (GERD) Hyperlipidemia Hyperlipidemia Hypertension Hypokalemia Hypothyroidism Leg pain 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, 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 Lung nodule Lung nodule Neuropathy Obesity (BMI 30-39.9) Osteoarthritis Pneumonia Pneumonia Pulmonary fibrosis Pulmonary fibrosis, unspecified Pulmonary hypertension Rectal prolapse Screening for lung cancer Shortness of Breath Sore throat Stenosis of carotid artery TMJ dysfunction Tobacco abuse Tobacco abuse counseling Tobacco abuse counseling Tobacco abuse counseling Tobacco abuse counseling Tobacco abuse disorder Tobacco dependence syndrome Unspecified asthma, uncomplicated Surgical History (Updated 09/24/23 @ 00:25 by Arcelia Brown RN) History of arthroscopy of knee History of bladder suspension procedure History of cardiac cath History of section History of colonoscopy History of hemorrhoidectomy History of hysterectomy History of sinus surgery History of spinal surgery Family History Mother Hypertension Family history of acute congestive heart failure Father No problems noted. Social History Smoking Status: Current every day smoker tobacco type: cigarettes packs per day: 1 years smoked: 40 second hand exposure: Yes alcohol intake: never substance use type: denies use current occupational status: disabled Travel in the last 8 weeks: None household members: spouse housing: house current occupational exposures/hazards: No caffeine: Yes bobby/lutheran: Jewish Review of Systems Constitutional Constitutional: Reports anorexia, Reports body ache(s) and Reports fatigue Eyes Eyes: Denies eye discharge, Denies dry eyes, Denies irritation and Denies itchy eyes ENT Ears, Nose, Mouth, and Throat: Denies epistaxis, Denies facial pain, Denies lip swelling and Denies throat swelling *Cardiovascular Cardiovascular: Reports dyspnea, Reports dyspnea on exertion and Reports orthopnea *Respiratory Respiratory: Denies change in phlegm color, Reports chest congestion, Reports cough, Reports dyspnea, Reports dyspnea on exertion, Reports excessive phlegm production and Reports wheezing *Gastrointestinal Gastrointestinal: Denies abdominal pain, Denies belching and Denies cramping *Musculoskeletal Musculoskeletal: Reports back pain, Reports myalgias and Reports other (No small joint swelling or Pain) *Neurologic Neurologic: Reports system reviewed and no additional complaints, except as documented Psychiatric Psychiatric: Denies homicidal ideation and Denies suicidal ideation Endocrine Endocrine: Reports fatigue and Denies heat intolerance Hematologic/Lymphatic Hematologic/Lymphatic: Denies easy bleeding and Denies lymphadenopathy Allergic/Immunologic Allergic/Immunologic: Denies itchy eyes, Denies lip swelling, Denies throat swelling and Reports wheezing Pulmonology Exam Inpatient Vital signs and Labs for Last 24 Hours: Temp Pulse Resp BP Pulse Ox O2 Del Method O2 Flow Rate 97.8 F 73 22 100/57 L 95 Venturi Mask 15 09/26/23 08:00 09/26/23 08:00 09/26/23 08:00 09/26/23 08:00 09/26/23 09:21 09/26/23 09:21 09/26/23 09:21 FiO2 50 09/26/23 09:21 Laboratory Results - last 24 hr 09/25/23 08:58: Carbon Dioxide 39 H, Anion Gap 6.2, BUN 16, Creatinine 0.80, Estimated Creat Clear 89, Estimated GFR 73, Est GFR ( Amer) 88, Glucose 112 H, Calcium 8.3 L, Total Bilirubin 0.7, AST 173 H D, ALT 285 H, Alkaline Phosphatase 85, NT-Pro-B Natriuret Pep 3180 H, Total Protein 5.8 L, Albumin 2.8 L, Globulin 3.0, Albumin/Globulin Ratio 0.9 L 09/25/23 16:20: APTT 31.2 09/25/23 21:35: APTT 86.1 H* 09/26/23 05:54: WBC 7.1 D, RBC 4.60, Hgb 9.9 L, Hct 33.7 L, MCV 73.2 L, MCH 21.5 L, MCHC 29.4 L, RDW 20.0 H, Plt Count 120 L, MPV 9.6, Neut % (Auto) 70.1, Lymph % (Auto) 19.8, [place] % (Auto) 8.2, Eos % (Auto) 1.6, Baso % (Auto) 0.3, Neut # (Auto) 5.0, Lymph # (Auto) 1.4, [place] # (Auto) 0.6, Eos # (Auto) 0.1, Baso # (Auto) 0.0, APTT 67.5 H* I & O for Labs for Last 24 Hours: Intake & Output 09/23/23 09/24/23 09/25/23 09/26/23 23:59 23:59 23:59 23:59 Intake Total 810 / 1050 1640 / 1640 Output Total 2750 / 3550 4350 / 4350 550 / 550 Balance -1940 / -2500 -2710 / -2710 -550 / -550 Weight 214 lb 8.156 oz 214 lb 3.2 oz 212 lb Constitutional: Present moderate distress Head: Present normocephalic and atraumatic ENT: Present normal exam, normal oropharynx and mucous membranes moist Neck: Present normal inspection and full ROM Respiratory: Present prolonged expiratory phase, respiratory distress, rhonchi, wheezes, crackles and able to speak in complete sentences Cardiac: Present S1/S2, Tachycardia and radial pulses present GI: Present soft and distention; Absent tenderness or guarding Rectal (female): Present deferred (female): Present deferred Skin: Present intact; Absent cyanosis or jaundice Neuro: Present alert, awake and oriented x 3 Extremities: Present normal inspection; Absent clubbing or cyanosis Psychiatric: Present normal affect and cooperative Meds Home Medications and Allergies Home Medications Medication Instructions Recorded Confirmed Type aspirin 81 mg tablet,delayed 81 mg PO DAILY 08/09/22 09/24/23 History release (Adult Low Dose Aspirin) hydromorphone (PF) 1 mg/mL 1 mg SQ .COMPLEX PRN Pain 12/08/22 09/24/23 History injection syringe (Dilaudid (PF)) cyanocobalamin (vitamin B-12) 1,000 mcg IM MONTHLY Supplement 01/24/23 09/24/23 Rx 1,000 mcg/mL injection solution #10 mL fluticasone propionate 50 1 spray intranasal DAILYP PRN 04/04/23 09/24/23 History mcg/actuation nasal Allergies spray,suspension (Flonase Allergy Relief) spironolactone 25 mg tablet 25 mg PO DAILY Fluid #90 tabs 04/05/23 09/24/23 Rx empagliflozin 10 mg tablet 10 mg PO DAILY Heart failure 30 04/28/23 09/24/23 Rx days #30 tabs fluticasone furoate 100 1 inh inhalation DAILY 05/24/23 09/24/23 History mcg-vilanterol 25 mcg/dose inhalation powder (Breo Ellipta) inhalational spacing device #10 ea 08/11/23 09/24/23 Rx (Aerochamber MV spacer) pramipexole 1 mg tablet 1 mg PO HS 08/11/23 09/24/23 History albuterol sulfate 90 mcg/actuation 2 puff inhalation QIDP PRN 08/30/23 09/24/23 History aerosol inhaler Shortness Of Breath Or Wheezing colestipol 1 gram tablet 1 g PO BID 08/30/23 09/24/23 History ipratropium 0.5 mg-albuterol 3 mg 3 ml inhalation Q6HP PRN Shortness 08/30/23 09/24/23 History (2.5 mg base)/3 mL nebulization Of Breath Or Wheezing soln omeprazole 40 mg capsule,delayed 40 mg PO BID 08/30/23 09/24/23 History release potassium chloride 20 mEq 40 meq PO PM 08/30/23 09/24/23 History tablet,extended release(part/cryst) tiotropium bromide 2.5 2 puff inhalation DAILY 08/30/23 09/24/23 History mcg/actuation mist for inhalation (Spiriva Respimat) furosemide 40 mg tablet 40 mg PO BID 30 days #60 tabs 08/31/23 09/24/23 Rx sacubitril 24 mg-valsartan 26 mg 1 tab PO BID 30 days #60 tabs 08/31/23 09/24/23 Rx tablet (Entresto) varenicline 0.5 mg (11)-1 mg (42) See Rx Instructions PO PER PKG DIR 09/08/23 09/24/23 Rx tablets in a dose pack (Chantix #53 tabs Starting Month Box) varenicline 1 mg tablet (Chantix 1 mg PO BID #60 tabs 09/08/23 09/24/23 Rx Continuing Month Box) ondansetron 4 mg disintegrating 4 mg PO BID PRN nausea and 09/19/23 09/24/23 Rx tablet vomiting 5 days #10 tabs promethazine 25 mg tablet 25 mg PO Q6H PRN nausea and 09/20/23 09/24/23 Rx vomiting #20 tabs alprazolam 0.5 mg tablet 0.5 mg PO BIDP PRN Anxiety 09/24/23 09/24/23 History atorvastatin 20 mg tablet 20 mg PO HS Cholesterol 09/24/23 09/24/23 History azithromycin 250 mg tablet 250 mg PO MOWEFR 09/24/23 09/24/23 History escitalopram oxalate 20 mg tablet 40 mg PO HS Depression 09/24/23 09/24/23 History pregabalin 150 mg capsule 150 mg PO BID Pain 09/24/23 09/24/23 History New Prescriptions to Start Prescriptions: Allergies Allergy/AdvReac Type Severity Reaction Status Date / Time amoxicillin [From Amoxil] Allergy Verified 09/19/23 15:03 moxifloxacin [From Avelox] Allergy Verified 09/19/23 15:03 ofloxacin Allergy Verified 09/19/23 15:03 Quinidine-Quinine Analogues Allergy Verified 09/19/23 15:03 (Cincho rofecoxib [From Vioxx] Allergy Verified 09/19/23 15:03 tramadol Allergy Verified 09/19/23 15:03 Results Laboratory Findings 09/26/23 05:54 09/25/23 08:58 Abnormal lab findings: Abnormal Labs 09/24/23 09/24/23 09/24/23 00:35 06:14 08:55 Hgb 11.4 L 10.9 L Hct 36.7 L MCV 74.6 L 74.2 L MCH 22.0 L 22.0 L MCHC 29.5 L 29.6 L RDW 20.0 H 19.8 H Plt Count 117 L 122 L MPV 10.8 H Neut % (Auto) 91.2 H 82.6 H Lymph % (Auto) 6.9 L Taylor % (Auto) 1.6 L Eos % (Auto) 0.0 L Neut # (Auto) Lymph # (Auto) 0.4 L Neutrophils % (Manual) 92 H Lymphocytes % (Manual) 7 L Monocytes % (Manual) 1 L APTT 38.4 H Sodium 134 L 134 L Potassium Chloride 97 L Carbon Dioxide 32 H 31 H Glucose 115 H 112 H Calcium AST 733 H* 599 H* ALT 403 H* 376 H* Troponin I 1.26 H 1.30 H NT-Pro-B Natriuret Pep 91689 H Total Protein 6.1 L 5.8 L Albumin 3.0 L 2.8 L Albumin/Globulin Ratio 1.0 L 0.9 L Cholesterol 85 L LDL Cholesterol Direct 40.56 L HDL Cholesterol 36 L Acetaminophen < 10 L 09/24/23 09/25/23 09/25/23 15:55 02:00 08:56 Hgb Hct MCV MCH MCHC RDW Plt Count MPV Neut % (Auto) Lymph % (Auto) Taylor % (Auto) Eos % (Auto) Neut # (Auto) Lymph # (Auto) Neutrophils % (Manual) Lymphocytes % (Manual) Monocytes % (Manual) APTT > 200.0 H* 37.9 H 47.0 H Sodium Potassium Chloride Carbon Dioxide Glucose Calcium AST ALT Troponin I NT-Pro-B Natriuret Pep Total Protein Albumin Albumin/Globulin Ratio Cholesterol LDL Cholesterol Direct HDL Cholesterol Acetaminophen 09/25/23 09/25/23 09/26/23 08:58 21:35 05:54 Hgb 10.6 L 9.9 L Hct 35.1 L 33.7 L MCV 73.0 L 73.2 L MCH 22.1 L 21.5 L MCHC 30.2 L 29.4 L RDW 20.1 H 20.0 H Plt Count 137 L 120 L MPV Neut % (Auto) Lymph % (Auto) Taylor % (Auto) Eos % (Auto) Neut # (Auto) 8.1 H Lymph # (Auto) Neutrophils % (Manual) Lymphocytes % (Manual) Monocytes % (Manual) APTT 86.1 H* 67.5 H* Sodium 132 L Potassium 3.2 L Chloride 90 L Carbon Dioxide 39 H Glucose 112 H Calcium 8.3 L AST 173 H D ALT 285 H Troponin I NT-Pro-B Natriuret Pep 3180 H Total Protein 5.8 L Albumin 2.8 L Albumin/Globulin Ratio 0.9 L Cholesterol LDL Cholesterol Direct HDL Cholesterol Acetaminophen Assessment and Plan *Assessment and plan (1) Acute and chronic respiratory failure with hypoxia: Status: Acute Category: Medical Code(s): J96.21 - Acute and chronic respiratory failure with hypoxia (2) Pneumonia: Status: Acute Category: Medical Code(s): J18.9 - Pneumonia, unspecified organism Plan Ms. Shaw is a 63-year-old female greater than [id number] smoking history, severe COPD, lung nodules on triple inhaler therapy advised on 1-2 L nasal cannula oxygen supplementation presented to the ER complaining of worsening respiratory distress pulmonary was called for further evaluation and management. Patient other significant comorbidities include diastolic heart failure. Left heart cath August 2023 normal coronary angiograms. On Lasix as needed at baseline. Chest x-ray on admission vascular congestion, bilateral pleural effusions concerning lower lobe atelectasis/pneumonia. No evidence of leukocytosis upon admission. Afebrile. Hemodynamically stable. troponin elevated at 1.30. On examination mild expiratory wheezing. Moderate respiratory distress. Significant hypoxia saturating 87 to 90% Ventimask at 60%. Plan: -Continue open supplementation to maintain O2 saturation goal of 92% and above. Will escalate high flow nasal cannula if needed. -DuoNebs every 4 and Pulmicort Pulmicort every 12 scheduled -Follow with CTA PE protocol -Volume optimization as per primary team and cardiology. -Initiate levofloxacin pending culture results. Thank you for involving pulmonary in this patient care. Will continue to follow.
--- NOTE | 2023-09-26 10:51 | CT_ITS ---
FINAL REPORT TECHNIQUE: Postcontrast axial images of the chest were performed in a CTA protocol. This study was performed with techniques to keep radiation doses as low as reasonably achievable, (ALARA). Individualized dose reduction technique using automated exposure control or adjustment of mA and/or kV according to the patient's size were employed. CLINICAL HISTORY: Hypoxia FINDINGS: The heart is normal in size. There are multiple mildly enlarged mediastinal lymph nodes which are nonspecific. No pleural or pericardial effusion is identified. The thoracic aorta is normal in caliber with no focal aneurysm or dissection identified. There is no filling defect to suggest pulmonary embolism. There is severe emphysema and mild scarring. No lung infiltrate or mass is identified. The images of the upper abdomen are unremarkable. IMPRESSION: No evidence for PE on this exam. Reviewed, Interpreted and Dictated by Brendan Multani III, MD Transcribed by Hanny Porras Authenticated and . [facility]
--- NOTE | 2023-09-26 11:26 | EXP.PN ---
Subjective *Date: 09/26/23 *Time: 11:26 Interval history: patient was seen and evaluated at the bedside, denied any acute events overnight, denies chest pain, shortness of breath, nausea, vomiting, abdominal pain. Exam Data for Last 24 hours Vital signs and Labs for Last 24 Hours: Temp Pulse Resp BP Pulse Ox O2 Del Method O2 Flow Rate 97.8 F 73 22 100/57 L 95 Venturi Mask 15 09/26/23 08:00 09/26/23 08:00 09/26/23 08:00 09/26/23 08:00 09/26/23 09:21 09/26/23 11:00 09/26/23 09:21 FiO2 50 09/26/23 09:21 Laboratory Results - last 24 hr 09/25/23 16:20: APTT 31.2 09/25/23 21:35: APTT 86.1 H* 09/26/23 05:54: WBC 7.1 D, RBC 4.60, Hgb 9.9 L, Hct 33.7 L, MCV 73.2 L, MCH 21.5 L, MCHC 29.4 L, RDW 20.0 H, Plt Count 120 L, MPV 9.6, Neut % (Auto) 70.1, Lymph % (Auto) 19.8, [place] % (Auto) 8.2, Eos % (Auto) 1.6, Baso % (Auto) 0.3, Neut # (Auto) 5.0, Lymph # (Auto) 1.4, [place] # (Auto) 0.6, Eos # (Auto) 0.1, Baso # (Auto) 0.0, APTT 67.5 H* I & O for Last 24 hours: Intake & Output 09/23/23 09/24/23 09/25/23 09/26/23 23:59 23:59 23:59 23:59 Intake Total 810 / 1050 1640 / 1640 Output Total 2750 / 3550 4350 / 4350 1050 / 1050 Balance -1940 / -2500 -2710 / -2710 -1050 / -1050 Weight 97.3 kg 97.159 kg 96.162 kg Constitutional Constitutional: no acute distress *Routine HEENT Exam Head: Present normocephalic Eye: Present EOMI and PERRL ENT: Present mucous membranes moist *Routine Neck Exam Neck: Present supple; Absent lymphadenopathy *Routine Respiratory Exam Respiratory: Present CTA bilaterally *Routine Cardiovascular Exam Cardiovascular: Present RRR *Routine Abdominal Exam Abdominal: Present soft and normoactive bowel sounds; Absent tenderness *Routine Extremities Exam Extremities: Absent cyanosis, clubbing or edema *Routine Skin Exam Skin: Present warm; Absent rash *Routine Neurological Exam Neurological: Present alert and oriented X3 Assessment and Plan *Assessment and plan (1) NSTEMI (non-ST elevated myocardial infarction): Status: Acute Category: Medical Code(s): I21.4 - Non-ST elevation (NSTEMI) myocardial infarction (2) CHF exacerbation: Status: Acute Category: Medical Code(s): I50.9 - Heart failure, unspecified (3) Transaminitis: Status: Acute Category: Medical Code(s): R74.01 - Elevation of levels of liver transaminase levels (4) COPD (chronic obstructive pulmonary disease): Status: Acute Category: Medical Code(s): J44.9 - Chronic obstructive pulmonary disease, unspecified (5) HTN (hypertension): Status: Chronic Qualifiers: Hypertension type: primary hypertension Qualified Code(s): I10 - Essential (primary) hypertension Category: Medical Code(s): I10 - Essential (primary) hypertension (6) HLD (hyperlipidemia): Status: Chronic Qualifiers: Hyperlipidemia type: unspecified Qualified Code(s): E78.5 - Hyperlipidemia, unspecified Category: Medical Code(s): E78.5 - Hyperlipidemia, unspecified (7) Tobacco abuse: Status: Acute Category: Medical Code(s): Z72.0 - Tobacco use (8) Obesity: Status: Chronic Qualifiers: Obesity type: due to excess calories Obesity classification: adult class 1 (BMI 30 - 34.9) Serious obesity comorbidity presence: with serious comorbidity Body mass index: BMI 30.0-30.9 Qualified Code(s): E66.09 - Other obesity due to excess calories; Z68.30 - Body mass index [BMI] 30.0-30.9, adult Category: Medical Code(s): E66.9 - Obesity, unspecified Plan 63 year old female presented to [facility] [place] via direct transfer from [facility]. She presented to [place] ED with c/o SOA and weakness since 09/03/2023. At [place] the pt's troponins and liver enzymes where elevated. Upon admission the pt's initial troponin is 1.26, AST 733 and ALT 403. She was given 80mg IV Lasix and started on a heparin gtt prior to transfer. PMHX of HTN, HLD, CHF, COPD, Tobacco abuse, and obesity. UPon arrival pt appears jaundice and is still c/o SOA. She will receive a Cardiac consult and continue the lasix and heparin gtt. Pt has intrathecal pump for her degenerative disc disease. NSTEMI CHF EXAC -Cardiology consult -Trend troponins , 1.30 -Continue hep gtt -Lasix 40 mg BID - held due to low BP -Strict I/O w/ external de la cruz cath -EKG reviewed and reveals ST depression -Chest xray reviewed and reveals pulmonary edema Acute hypoxic respiratory failure - likely multifactorial, due to COPDE, Acute CHF - pulmonary consulted - wean O2 as tolerated, currently on venti mask - started on Duoneb Q4hrs and levofloxacin TRANSAMINITIS -AST 733 and ALT 403 - improving on rechecks -Hepatitis panel pending -holding liver injuring medications COPD HTN HLD -Duoneb q 6hr as need -contniue home medications of albuterol, aspirin, jardiance, lexapro, and entresto -Maintain o2 above 92 % -currently at 2 L baseline TOBACCO ABUSE -nicotine patched PRN OBESITY -complicates all aspects of care NPO after MN, for possible cath today, f/u with cardiology, monitor on telemetry holding lasix for low BP
[2023-09-26] MEDS: SODIUM CHLORIDE 0.9% 10ML SYR (RAD ONLY) 10 ML IV ×2 (11:33→11:37)
[2023-09-26] MEDS: IOPAMIDOL-370 (76%);100ML BOTTLE 70 ML IV (11:36)
[2023-09-26] MEDS: 0.9 % SODIUM CHLORIDE 50 ML VIAL 40 ML IV (11:36)
[2023-09-26] MEDS: IPRATROPIUM/ALBUTEROL 3 ML NEB IH ×4 (11:55→22:41)
[2023-09-26 12:26] LABS: PTT Heparin (inpatient only) 44.1 Seconds (23.6-34.0)
--- NOTE | 2023-09-26 13:51 | CA_ITS ---
APPROVED REPORT EXAM: Limited 2D Echocardiogram Smash Fixer: Tricia Landin CRT Ht: 5 ft 10 in Wt: 212lbs BSA: 2.14 BP: 100/57 mmHg Indications: B/S rule out shunt Echo Enhancing Agent Indication: Rule out Shunt Agent(s) / Amount(s) Used: Agitated Saline 3 cc Comments: Rule out shunt Other Information Study Quality: Technically Difficult Conclusion This is a limited TTE to evaluate for intracardiac shunt. Limited windows were obtained. Technically difficult study due to acoustic windows. Agitated saline administration was performed. Agitated saline was administered. At rest, during sniff, and with Valsalva. Due to technically difficult study, visualization is limited and assessment of intracardiac shunt cannot be conclusively made. Further evaluation for intracardiac shunt with alternative modalities is recommended, if clinically indicated. Electronically signed by : Isabel Valladares MD 09/26/2023 22:29:40
--- NOTE | 2023-09-26 14:11 | PC.NURSE ---
spoke with cardiology regarding pt being hypotensive consistently. Held imdur per their recommendation.
[2023-09-26] MEDS: LEVOFLOXACIN/D5W 750 MG/150 ML 750 MG/150 ML PIGGYBACK 100 MG IV (14:28)
--- NOTE | 2023-09-26 14:46 | EXP.CARD.CON ---
History of Present Illness History of Present Illness Consult date: 09/26/23 Requesting physician: Stacey Fregoso Consult reason: shortness of breath Chief complaint: SOA History of present illness: This is a 63-year-old white female who presented to the emergency department at [facility] with shortness of breath and transferred here due to an elevated troponin. The patient states that she has been having progressively worsening shortness of breath and weakness since September 03, 2023. The patient states that her shortness of breath was severe that she was having difficulty just walking around her house. She denies any chest pain or pressure. She denies any lower extremity edema. In the emergency department at [facility] she was found to have elevated troponins and elevated liver enzymes. The patient was given Lasix IV and started on a heparin drip. She was then transferred here. Of note, the patient had a recent cardiac catheterization August 30, 2023 here at [facility] which showed normal coronary arteries. She denies any fever, chills, nausea, vomiting, diarrhea. She states that her shortness of breath is associated with orthopnea and PND. [facility] Disclaimer: The information contained in this section may have been updated after the patient was seen, as this information can be updated by other users. Medical History (Updated 09/26/23 @ 14:52 by Carmen Vasques APRN) Abnormal cardiovascular stress test Acute and chronic respiratory failure with hypoxia Allergic rhinitis Allergic rhinitis, unspecified Allergic rhinitis, unspecified Anxiety Anxiety Asthma Atypical angina Bilateral leg pain Bilateral leg pain Bilateral low back pain with sciatica CAD (coronary artery disease) Cataract CHF (congestive heart failure) Chronic bronchitis Chronic bronchitis Congestive heart failure COPD (chronic obstructive pulmonary disease) COPD (chronic obstructive pulmonary disease) COPD (chronic obstructive pulmonary disease) COPD mixed type 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, bilateral emt intermediate current use of diuretic Lung nodule Lung nodule Neuropathy Obesity (BMI 30-39.9) Osteoarthritis Pneumonia Pneumonia Pulmonary fibrosis Pulmonary fibrosis, unspecified Pulmonary hypertension Pulmonary hypertension Rectal prolapse Right ventricular failure Screening for lung cancer Shortness of Breath Sore throat Stenosis of carotid artery TMJ dysfunction Tobacco abuse Tobacco abuse counseling Tobacco abuse counseling Tobacco abuse counseling Tobacco abuse counseling Tobacco abuse disorder Tobacco dependence syndrome Unspecified asthma, uncomplicated Surgical History (Updated 09/24/23 @ 00:25 by Arcelia Brown RN) History of arthroscopy of knee History of bladder suspension procedure History of cardiac cath History of section History of colonoscopy History of hemorrhoidectomy History of hysterectomy History of sinus surgery History of spinal surgery Family History Mother Hypertension Family history of acute congestive heart failure Father No problems noted. Social History Smoking Status: Current every day smoker tobacco type: cigarettes packs per day: 1 years smoked: 40 second hand exposure: Yes alcohol intake: never substance use type: denies use current occupational status: disabled Travel in the last 8 weeks: None household members: spouse housing: house current occupational exposures/hazards: No caffeine: Yes bobby/synagogue: [employer] Review of Systems Review of Systems Review of systems:: pertinent systems reviewed and negative unless documented below Constitutional Constitutional: Reports system reviewed and no additional complaints, except as documented Eyes Eyes: Reports system reviewed and no additional complaints, except as documented ENT Ears, Nose, Mouth, and Throat: Reports system reviewed and no additional complaints, except as documented *Cardiovascular Cardiovascular: Reports system reviewed and no additional complaints, except as documented, Reports dyspnea, Reports dyspnea on exertion and Reports orthopnea *Respiratory Respiratory: Reports system reviewed and no additional complaints, except as documented, Reports chest congestion, Reports cough, Reports dyspnea, Reports dyspnea on exertion, Reports excessive phlegm production, Denies hemoptysis and Reports wheezing *Gastrointestinal Gastrointestinal: Reports system reviewed and no additional complaints, except as documented *Genitourinary Genitourinary: Reports system reviewed and no additional complaints, except as documented *Musculoskeletal Musculoskeletal: Reports system reviewed and no additional complaints, except as documented Integumentary/Breasts Skin/Breast: Reports system reviewed and no additional complaints, except as documented *Neurologic Neurologic: Reports system reviewed and no additional complaints, except as documented Psychiatric Psychiatric: Reports system reviewed and no additional complaints, except as documented Endocrine Endocrine: Reports system reviewed and no additional complaints, except as documented Hematologic/Lymphatic Hematologic/Lymphatic: Reports system reviewed and no additional complaints, except as documented Allergic/Immunologic Allergic/Immunologic: Reports system reviewed and no additional complaints, except as documented and Reports wheezing Exam Data for Last 24 hours Vital signs and Labs for Last 24 Hours: Temp Pulse Resp BP Pulse Ox O2 Del Method O2 Flow Rate 98.4 F 78 24 97/55 L 93 L Venturi Mask 15 09/26/23 12:00 09/26/23 14:24 09/26/23 12:00 09/26/23 14:10 09/26/23 12:05 09/26/23 12:05 09/26/23 12:05 FiO2 50 09/26/23 12:05 Laboratory Results - last 24 hr 09/25/23 16:20: APTT 31.2 09/25/23 21:35: APTT 86.1 H* 09/26/23 05:54: WBC 7.1 D, RBC 4.60, Hgb 9.9 L, Hct 33.7 L, MCV 73.2 L, MCH 21.5 L, MCHC 29.4 L, RDW 20.0 H, Plt Count 120 L, MPV 9.6, Neut % (Auto) 70.1, Lymph % (Auto) 19.8, [place] % (Auto) 8.2, Eos % (Auto) 1.6, Baso % (Auto) 0.3, Neut # (Auto) 5.0, Lymph # (Auto) 1.4, [place] # (Auto) 0.6, Eos # (Auto) 0.1, Baso # (Auto) 0.0, APTT 67.5 H* 09/26/23 12:06: APTT 44.1 H I & O for Last 24 hours: Intake & Output 09/23/23 09/24/23 09/25/23 09/26/23 23:59 23:59 23:59 23:59 Intake Total 810 / 1050 1640 / 1640 Output Total 2750 / 3550 4350 / 4350 1050 / 1050 Balance -1940 / -2500 -2710 / -2710 -1050 / -1050 Weight 214 lb 8.156 oz 214 lb 3.2 oz 212 lb 0.015 oz Constitutional Constitutional: no acute distress and average body habitus *Routine HEENT Exam Head: Present normocephalic and atraumatic ENT: Present mucous membranes moist *Routine Neck Exam Neck: Present supple, full ROM and normal carotid upstroke; Absent JVD, carotid bruit or lymphadenopathy *Routine Respiratory Exam Respiratory: Present prolonged expiratory phase, rales, rhonchi, wheezes, able to speak in complete sentences and symmetric chest movement *Routine Cardiovascular Exam Cardiovascular: Present RRR, Normal S1 and Normal S2; Absent murmur or gallop *Routine Abdominal Exam Abdominal: Present soft and normoactive bowel sounds; Absent tenderness, distended or organomegaly *Routine Extremities Exam Extremities: Present full ROM, pulses intact and normal capillary refill; Absent cyanosis, clubbing or edema *Routine Skin Exam Skin: Present intact and warm; Absent erythema *Routine Neurological Exam Neurological: Present alert, oriented X3 and CN II-XII intact; Absent sensory deficit or motor deficit Routine Psychiatric Exam Psychiatric: Present normal affect Meds Home Medications and Allergies Home Medications Medication Instructions Recorded Confirmed Type aspirin 81 mg tablet,delayed 81 mg PO DAILY 08/09/22 09/24/23 History release (Adult Low Dose Aspirin) hydromorphone (PF) 1 mg/mL 1 mg SQ .COMPLEX PRN Pain 12/08/22 09/24/23 History injection syringe (Dilaudid (PF)) cyanocobalamin (vitamin B-12) 1,000 mcg IM MONTHLY Supplement 01/24/23 09/24/23 Rx 1,000 mcg/mL injection solution #10 mL fluticasone propionate 50 1 spray intranasal DAILYP PRN 04/04/23 09/24/23 History mcg/actuation nasal Allergies spray,suspension (Flonase Allergy Relief) spironolactone 25 mg tablet 25 mg PO DAILY Fluid #90 tabs 04/05/23 09/24/23 Rx empagliflozin 10 mg tablet 10 mg PO DAILY Heart failure 30 04/28/23 09/24/23 Rx days #30 tabs fluticasone furoate 100 1 inh inhalation DAILY 05/24/23 09/24/23 History mcg-vilanterol 25 mcg/dose inhalation powder (Breo Ellipta) inhalational spacing device #10 ea 08/11/23 09/24/23 Rx (Aerochamber MV spacer) pramipexole 1 mg tablet 1 mg PO HS 08/11/23 09/24/23 History albuterol sulfate 90 mcg/actuation 2 puff inhalation QIDP PRN 08/30/23 09/24/23 History aerosol inhaler Shortness Of Breath Or Wheezing colestipol 1 gram tablet 1 g PO BID 08/30/23 09/24/23 History ipratropium 0.5 mg-albuterol 3 mg 3 ml inhalation Q6HP PRN Shortness 08/30/23 09/24/23 History (2.5 mg base)/3 mL nebulization Of Breath Or Wheezing soln omeprazole 40 mg capsule,delayed 40 mg PO BID 08/30/23 09/24/23 History release potassium chloride 20 mEq 40 meq PO PM 08/30/23 09/24/23 History tablet,extended release(part/cryst) tiotropium bromide 2.5 2 puff inhalation DAILY 08/30/23 09/24/23 History mcg/actuation mist for inhalation (Spiriva Respimat) furosemide 40 mg tablet 40 mg PO BID 30 days #60 tabs 08/31/23 09/24/23 Rx sacubitril 24 mg-valsartan 26 mg 1 tab PO BID 30 days #60 tabs 08/31/23 09/24/23 Rx tablet (Entresto) varenicline 0.5 mg (11)-1 mg (42) See Rx Instructions PO PER PKG DIR 09/08/23 09/24/23 Rx tablets in a dose pack (Chantix #53 tabs Starting Month Box) varenicline 1 mg tablet (Chantix 1 mg PO BID #60 tabs 09/08/23 09/24/23 Rx Continuing Month Box) ondansetron 4 mg disintegrating 4 mg PO BID PRN nausea and 09/19/23 09/24/23 Rx tablet vomiting 5 days #10 tabs promethazine 25 mg tablet 25 mg PO Q6H PRN nausea and 09/20/23 09/24/23 Rx vomiting #20 tabs alprazolam 0.5 mg tablet 0.5 mg PO BIDP PRN Anxiety 09/24/23 09/24/23 History atorvastatin 20 mg tablet 20 mg PO HS Cholesterol 09/24/23 09/24/23 History azithromycin 250 mg tablet 250 mg PO MOWEFR 09/24/23 09/24/23 History escitalopram oxalate 20 mg tablet 40 mg PO HS Depression 09/24/23 09/24/23 History pregabalin 150 mg capsule 150 mg PO BID Pain 09/24/23 09/24/23 History New Prescriptions to [facility] Prescriptions: Allergies Allergy/AdvReac Type Severity Reaction Status Date / Time moxifloxacin [From Avelox] Allergy Intermediate Rash Verified 09/26/23 11:47 ofloxacin Allergy Unknown Verified 09/26/23 11:47 allergy reaction Quinidine-Quinine Analogues Allergy Unknown Verified 09/26/23 11:47 (Cincho allergy reaction rofecoxib [From Vioxx] Allergy Unknown Verified 09/26/23 11:47 allergy reaction tramadol Allergy Unknown Verified 09/26/23 11:47 allergy reaction amoxicillin [From Amoxil] AdvReac Intermediate NAUSEA/VOMI Verified 09/26/23 11:47 TING Assessment and Plan *Assessment and plan (1) Elevated troponin: Status: Acute Category: Medical Code(s): R79.89 - Other specified abnormal findings of blood chemistry (2) HTN (hypertension): Status: Chronic Qualifiers: Hypertension type: primary hypertension Qualified Code(s): I10 - Essential (primary) hypertension Category: Medical Code(s): I10 - Essential (primary) hypertension (3) HLD (hyperlipidemia): Status: Chronic Qualifiers: Hyperlipidemia type: unspecified Qualified Code(s): E78.5 - Hyperlipidemia, unspecified Category: Medical Code(s): E78.5 - Hyperlipidemia, unspecified (4) TOMER and COPD overlap syndrome: Problem Comment: Baseline pulse oximetry on O2 2 L/min today was 87% and improved to 90% on 3 L. Status: Chronic Category: Medical Code(s): G47.33 - Obstructive sleep apnea (adult) (pediatric); J44.9 - Chronic obstructive pulmonary disease, unspecified (5) COPD (chronic obstructive pulmonary disease): Status: Acute Qualifiers: COPD type: unspecified COPD Qualified Code(s): J44.9 - Chronic obstructive pulmonary disease, unspecified Category: Medical Code(s): J44.9 - Chronic obstructive pulmonary disease, unspecified (6) Tobacco abuse: Status: Acute Category: Medical Code(s): Z72.0 - Tobacco use (7) Transaminitis: Status: Acute Category: Medical Code(s): R74.01 - Elevation of levels of liver transaminase levels (8) Acute and chronic respiratory failure with hypoxia: Status: Acute Category: Medical Code(s): J96.21 - Acute and chronic respiratory failure with hypoxia (9) Pneumonia: Status: Acute Qualifiers: Pneumonia type: due to unspecified organism Laterality: unspecified laterality Lung location: unspecified part of lung Qualified Code(s): J18.9 - Pneumonia, unspecified organism Category: Medical Code(s): J18.9 - Pneumonia, unspecified organism (10) Right ventricular failure: Status: Acute Category: Medical Code(s): I50.810 - Right heart failure, unspecified (11) Pulmonary hypertension: Status: Acute Category: Medical Code(s): I27.20 - Pulmonary hypertension, unspecified Plan Plan: 1. The patient was transferred here from [facility] due to an elevated troponin and shortness of breath. This is most likely a type II OK from her underlying pulmonary disease. The patient had recent cardiac catheterization August 30, 2023 which showed normal coronary arteries. No plans for repeat left cardiac catheterization at this time. 2. We will repeat a limited echocardiogram to evaluate her EF. As long as her ejection fraction remains preserved then no plans for left cardiac catheterization this hospital admission. 3. The patient does have severe right ventricular failure which is most likely stemming from her underlying pulmonary lung disease and pulmonary hypertension. Will get a pulmonology consult. 4. The patient has a history of normal coronary arteries. 5. Her blood pressure is on the lower side. Stop her Entresto. 6. Start isosorbide mononitrate 30 mg p.o. daily for pulmonary hypertension. 7. She does have elevated liver enzymes. No statin at this time. Will continue to follow. 8. Stop heparin drip. 9. The patient does have HFpEF. Continue Jardiance, spironolactone and Lasix. No beta-linda at this time as it has been shown that beta-blockers do cause worsening symptoms in patients with HFpEF. 10. Further recommendations to be made pending the patient's response to treatment and the results of her echocardiogram today. Thank you for the opportunity to help participate in the care of this patient. All recommendations and orders are per Dr. Valladares.
[2023-09-26] MEDS: BUDESONIDE 0.5MG/2ML NEB 0.5 MG IH (18:36)
[2023-09-26] MEDS: PRAMIPEXOLE 1 MG PO (21:46)
[2023-09-26] MEDS: PAT OWN MED ***ATORVASTATIN 20MG 20 MG PO (21:46)
[2023-09-26] MEDS: OMEPRAZOLE 40 MG 1 EACH PO (21:46)
[2023-09-27] VITALS (13 sets, daily range): BP systolic 120–151; BP diastolic 49–84; PULSE 66–92; RESP 18–22; TEMP 36.6–36.8; O2SAT 88–99; BMI 29.6
[2023-09-27] MEDS: NICOTINE 21MG/24HR PATCH 21 MG TD (01:25)
[2023-09-27] MEDS: IPRATROPIUM/ALBUTEROL 3 ML NEB IH ×5 (01:35→22:10)
[2023-09-27] MEDS: BUDESONIDE 0.5MG/2ML NEB 0.5 MG IH ×2 (05:58→18:17)
[2023-09-27 06:20] LABS: Basophils % 0.2 % (0.1-2.0); Eosinophils # 0.1 K/mm3 (0.0-0.4); Eosinophils % 1.2 % (0.1-12.0); Hematocrit 32.2 % (37.0-47.0); Hemoglobin 9.6 g/dL (12.2-16.2); Lymphocytes # 1.2 K/mm3 (0.7-4.5); Lymphocytes % 14.9 % (10-50); Mean Corpuscular HGB Conc 29.9 g/dL (31.8-35.4); Mean Corpuscular Hemoglobin 21.8 pg (27.0-31.2); Monocytes # 0.7 K/mm3 (0.1-1.0); Neutrophils # 5.8 K/mm3 (1.8-7.8); Neutrophils % 74.8 % (37.0-80.0); Platelet Count 113 K/mm3 (142-424); Red Blood Count 4.41 M/mm3 (4.20-5.40); Red Cell Distribution Width 19.8 % (11.5-17.5); White Blood Count 7.8 K/mm3 (4.8-10.8)
[2023-09-27 06:33] LABS: Chloride 92 mmol/L (98-107)
[2023-09-27 06:34] LABS: Sodium 132 mmol/L (136-145)
[2023-09-27 06:37] LABS: Anion Gap 3.8 mEq/L (5-15); Blood Urea Nitrogen 6 mg/dl (7-17); Calcium 8.4 mg/dl (8.4-10.2); Carbon Dioxide 39 mmol/L (22.0-30.0); Estimated Glomerular Filt Rate 125 ml/min (>60); GFR (African American) 151 ML/MIN (>60); Glucose 83 mg/dl (74-100)
[2023-09-27 07:11] LABS: Creatinine Clearance Estimated 88 mL/min (50-200); Potassium 2.8 mmoL/L (3.5-5.1)
--- NOTE | 2023-09-27 07:48 | EXP.ACUTE.PN ---
Subjective *Date: 09/27/23 *Time: 22:27 Interval history: Patient requesting to go home today. Informed her that while she is still on Vapotherm, she is not stable enough to go home. Does report that she is feeling somewhat better. No nausea or vomiting. No chest pain. Medical Exam Vital signs and Labs for Last 24 Hours: Vital Signs Temp Pulse Pulse Resp BP Pulse Ox O2 Del Method 09/27/23 04:00 98.0 F 71 18 121/61 Vapotherm 09/27/23 06:20 Vapotherm 09/27/23 05:00 Vapotherm 09/27/23 05:59 73 09/27/23 05:59 76 09/27/23 05:59 99 Vapotherm 09/27/23 04:00 66 09/27/23 03:00 Vapotherm 09/27/23 00:00 98.3 F 81 18 129/49 L 93 L Nasal Cannula 09/27/23 00:00 78 09/27/23 00:00 88 L Nasal Cannula 09/27/23 01:00 Nasal Cannula 09/27/23 01:35 72 09/27/23 01:35 72 09/26/23 23:00 Nasal Cannula 09/26/23 21:00 Nasal Cannula 09/26/23 20:00 91 L Nasal Cannula 09/26/23 20:00 98.0 F 96 H 18 119/60 94 L Nasal Cannula 09/26/23 20:00 78 09/26/23 22:41 72 09/26/23 22:41 72 09/26/23 18:36 72 09/26/23 18:36 82 09/26/23 18:36 96 Venturi Mask 09/26/23 17:00 Venturi Mask 09/26/23 16:00 Venturi Mask 09/26/23 16:00 80 09/26/23 16:00 97.7 F 83 20 81/45 L 96 Non-Rebreather 09/26/23 15:00 Venturi Mask 09/26/23 13:00 Venturi Mask 09/26/23 14:24 78 09/26/23 14:24 82 09/26/23 14:10 80 97/55 L 09/26/23 08:00 70 09/26/23 12:00 98.4 F 75 24 102/50 L 99 Non-Rebreather 09/26/23 12:05 93 L Venturi Mask 09/26/23 11:00 Venturi Mask 09/26/23 09:00 Venturi Mask 09/26/23 09:21 95 Venturi Mask 09/26/23 08:00 97.8 F 73 22 100/57 L 100 Non-Rebreather 09/26/23 08:14 99 Non-Rebreather O2 Flow Rate FiO2 09/27/23 04:00 09/27/23 06:20 09/27/23 05:00 30 09/27/23 05:59 09/27/23 05:59 09/27/23 05:59 20 40 09/27/23 04:00 09/27/23 03:00 30 09/27/23 00:00 3 09/27/23 00:00 09/27/23 00:00 4 09/27/23 01:00 3 09/27/23 01:35 09/27/23 01:35 09/26/23 23:00 3 09/26/23 21:00 3 09/26/23 20:00 3 09/26/23 20:00 3 09/26/23 20:00 09/26/23 22:41 09/26/23 22:41 09/26/23 18:36 09/26/23 18:36 09/26/23 18:36 50 09/26/23 17:00 09/26/23 16:00 09/26/23 16:00 09/26/23 16:00 09/26/23 15:00 09/26/23 13:00 09/26/23 14:24 09/26/23 14:24 09/26/23 14:10 09/26/23 08:00 09/26/23 12:00 09/26/23 12:05 15 50 09/26/23 11:00 09/26/23 09:00 09/26/23 09:21 15 50 09/26/23 08:00 09/26/23 08:14 Intake and Output 09/26/23 09/26/23 09/27/23 15:59 23:59 07:59 Intake Total 540 / 1020 480 / 1020 Output Total 500 / 1050 0 / 1050 900 / 900 Balance 40 / -30 480 / -30 -900 / -900 Intake: Intake, Oral Amount 540 / 1020 480 / 1020 Output: Output, Urine Amount 500 / 1050 0 / 1050 900 / 900 Other: Number of Unmeasured Voids 0 1 1 Weight 96.162 kg 95.935 kg Patient Weight 09/27/23 23:59 Weight 95.935 kg Laboratory Results - last 24 hr 09/26/23 12:06: APTT 44.1 H 09/27/23 05:54: WBC 7.8, RBC 4.41, Hgb 9.6 L, Hct 32.2 L, MCV 73.0 L, MCH 21.8 L, MCHC 29.9 L, RDW 19.8 H, Plt Count 113 L, MPV 8.0, Neut % (Auto) 74.8, Lymph % (Auto) 14.9, [place] % (Auto) 9.0, Eos % (Auto) 1.2, Baso % (Auto) 0.2, Neut # (Auto) 5.8, Lymph # (Auto) 1.2, [place] # (Auto) 0.7, Eos # (Auto) 0.1, Baso # (Auto) 0.0, Sodium 132 L, Potassium 2.8 L*, Chloride 92 L, Carbon Dioxide 39 H, Anion Gap 3.8 L, BUN 6 L D, Creatinine 0.50 L D, Estimated Creat Clear 88, Estimated GFR 125, Est GFR ( Amer) 151 D, Glucose 83, Calcium 8.4 I & O for Labs for Last 24 Hours: Intake & Output 09/24/23 09/25/23 09/26/23 09/27/23 23:59 23:59 23:59 23:59 Intake Total 810 / 1050 1640 / 1640 1020 / 1020 Output Total 2750 / 3550 4350 / 4350 1050 / 1050 900 / 900 Balance -1940 / -2500 -2710 / -2710 -30 / -30 -900 / -900 Weight 97.3 kg 97.159 kg 96.162 kg 95.935 kg Constitutional: Present no acute distress, obese and chronically ill appearing Head: Present atraumatic ENT: Present normal exam Respiratory: Present prolonged expiratory phase, wheezes and normal respiratory effort; Absent rhonchi or crackles Cardiac: Present Reg Rate and Rhythm GI: Present soft and normal bowel sounds; Absent distention or tenderness Extremities: Present normal inspection, full ROM and edema (trace) Skin: Present intact; Absent erythema Neuro: Present Grossly Intact, alert, awake, oriented x 3 and moves all extremities Assessment and Plan *Assessment and plan (1) NSTEMI (non-ST elevated myocardial infarction): Status: Acute Category: Medical Code(s): I21.4 - Non-ST elevation (NSTEMI) myocardial infarction (2) CHF exacerbation: Status: Acute Category: Medical Code(s): I50.9 - Heart failure, unspecified (3) Transaminitis: Status: Acute Category: Medical Code(s): R74.01 - Elevation of levels of liver transaminase levels (4) COPD (chronic obstructive pulmonary disease): Status: Acute Qualifiers: COPD type: unspecified COPD Qualified Code(s): J44.9 - Chronic obstructive pulmonary disease, unspecified Category: Medical Code(s): J44.9 - Chronic obstructive pulmonary disease, unspecified (5) HTN (hypertension): Status: Chronic Qualifiers: Hypertension type: primary hypertension Qualified Code(s): I10 - Essential (primary) hypertension Category: Medical Code(s): I10 - Essential (primary) hypertension (6) HLD (hyperlipidemia): Status: Chronic Qualifiers: Hyperlipidemia type: unspecified Qualified Code(s): E78.5 - Hyperlipidemia, unspecified Category: Medical Code(s): E78.5 - Hyperlipidemia, unspecified (7) Tobacco abuse: Status: Acute Category: Medical Code(s): Z72.0 - Tobacco use (8) Obesity: Status: Chronic Qualifiers: Obesity type: due to excess calories Obesity classification: adult class 1 (BMI 30 - 34.9) Serious obesity comorbidity presence: with serious comorbidity Body mass index: BMI 30.0-30.9 Qualified Code(s): E66.09 - Other obesity due to excess calories; Z68.30 - Body mass index [BMI] 30.0-30.9, adult Category: Medical Code(s): E66.9 - Obesity, unspecified Plan 63 year old female presented to [facility] via direct transfer from [facility]. She presented to [facility] ED with c/o SOA and weakness since 09/03/2023. At [facility] the pt's troponins and liver enzymes where elevated. Upon admission the pt's initial troponin is 1.26, AST 733 and ALT 403. She was given 80mg IV Lasix and started on a heparin gtt prior to transfer. PMHX of HTN, HLD, CHF, COPD, Tobacco abuse, and obesity. UPon arrival pt appears jaundice and is still c/o SOA. Cardiology and pulmonology consulted and assisting with care. Continues to require inpatient management. Problems addressed as follows: NSTEMI Acute on chronic heart failure with preserved ejection fraction - Cardiology consulted. Recommend holding on any plan for left heart cath at this time. Severe right ventricular failure most likely from her underlying pulmonary disease. - Recommend initiating isosorbide mononitrate 30 mg daily. -Holding Lasix. Initiated on Jardiance. Acute on chronic hypoxemic respiratory failure COPD exacerbation - Pulmonology consulted, appreciate their assistance. Discussed case, recommend continuing high flow nasal cannula with goal saturation greater than 90%. Wean as tolerated. - Continue DuoNebs every 4 hours and Pulmicort every 12 hours scheduled. Continue levofloxacin for total of 5 days. Continue prednisone 40 mg daily for 5 days. TRANSAMINITIS -AST 733 and ALT 403 - improving on rechecks, due to congestive hepatopathy from CHF -Hepatitis panel pending Hypokalemia: Potassium 2.8. Will replace orally and IV today. Repeat labs this afternoon at 6 PM to monitor potassium and creatinine. CBC, CMP, magnesium ordered for the morning. TOBACCO ABUSE: nicotine patched PRN OBESITY: complicates all aspects of care Full code Cardiac diet
[2023-09-27] MEDS: KCl 10mEq/100ml 100 ML 100 MEQ IV ×3 (08:52→11:13)
[2023-09-27] MEDS: ASPIRIN 81 MG PO (08:52)
[2023-09-27] MEDS: ALPRAZolam 0.5MG TABLET 0.5 MG PO (08:52)
[2023-09-27] MEDS: OMEPRAZOLE 40 MG 1 EACH PO ×2 (08:53→22:00)
[2023-09-27] MEDS: ISOSORBIDE MONO 30MG TAB.ER.24H 30 MG PO (08:53)
[2023-09-27] MEDS: EMPAGLIFLOZIN 10 MG PO (08:53)
[2023-09-27] MEDS: POTASSIUM CHLORIDE 20MEQ TAB 40 MEQ PO ×2 (08:54→22:04)
[2023-09-27] MEDS: PAT OWN MED ***SPIRONOLACTONE 25MG 25 MG PO (08:55)
--- NOTE | 2023-09-27 09:40 | EXP.PULM.PN ---
Subjective *Date: 09/27/23 *Time: 11:22 Interval history: No acute respiratory events overnight. Patient denies any new respiratory complaints. Pulmonology Exam Inpatient Vital signs and Labs for Last 24 Hours: Temp Pulse Resp BP Pulse Ox O2 Del Method O2 Flow Rate 98.3 F 90 22 151/84 H 94 L Vapotherm 20 09/27/23 08:00 09/27/23 08:00 09/27/23 08:00 09/27/23 08:00 09/27/23 08:00 09/27/23 08:00 09/27/23 05:59 FiO2 40 09/27/23 05:59 Laboratory Results - last 24 hr 09/26/23 12:06: APTT 44.1 H 09/27/23 05:54: WBC 7.8, RBC 4.41, Hgb 9.6 L, Hct 32.2 L, MCV 73.0 L, MCH 21.8 L, MCHC 29.9 L, RDW 19.8 H, Plt Count 113 L, MPV 8.0, Neut % (Auto) 74.8, Lymph % (Auto) 14.9, [place] % (Auto) 9.0, Eos % (Auto) 1.2, Baso % (Auto) 0.2, Neut # (Auto) 5.8, Lymph # (Auto) 1.2, [place] # (Auto) 0.7, Eos # (Auto) 0.1, Baso # (Auto) 0.0, Sodium 132 L, Potassium 2.8 L*, Chloride 92 L, Carbon Dioxide 39 H, Anion Gap 3.8 L, BUN 6 L D, Creatinine 0.50 L D, Estimated Creat Clear 88, Estimated GFR 125, Est GFR ( Amer) 151 D, Glucose 83, Calcium 8.4 I & O for Labs for Last 24 Hours: Intake & Output 09/24/23 09/25/23 09/26/23 09/27/23 23:59 23:59 23:59 23:59 Intake Total 810 / 1050 1640 / 1640 1020 / 1020 470 / 470 Output Total 2750 / 3550 4350 / 4350 1050 / 1050 900 / 900 Balance -1940 / -2500 -2710 / -2710 -30 / -30 -430 / -430 Weight 214 lb 8.156 oz 214 lb 3.2 oz 212 lb 0.015 oz 211 lb 8 oz Constitutional: Present moderate distress Head: Present normocephalic and atraumatic ENT: Present normal exam, normal oropharynx and mucous membranes moist Neck: Present normal inspection and full ROM Respiratory: Present prolonged expiratory phase, respiratory distress, rhonchi, wheezes, crackles and able to speak in complete sentences Cardiac: Present S1/S2, Tachycardia and radial pulses present GI: Present soft and distention; Absent tenderness or guarding Rectal (female): Present deferred (female): Present deferred Skin: Present intact; Absent cyanosis or jaundice Neuro: Present alert, awake and oriented x 3 Extremities: Present normal inspection; Absent clubbing or cyanosis Psychiatric: Present normal affect and cooperative Assessment and Plan *Assessment and plan (1) Acute and chronic respiratory failure with hypoxia: Status: Acute Category: Medical Code(s): J96.21 - Acute and chronic respiratory failure with hypoxia (2) Pneumonia: Status: Acute Qualifiers: Laterality: unspecified laterality Lung location: unspecified part of lung Pneumonia type: due to unspecified organism Qualified Code(s): J18.9 - Pneumonia, unspecified organism Category: Medical Code(s): J18.9 - Pneumonia, unspecified organism Plan Ms. Shaw is a 63-year-old female greater than [id number] smoking history, severe COPD, lung nodules on triple inhaler therapy advised on 1-2 L nasal cannula oxygen supplementation presented to the ER complaining of worsening respiratory distress pulmonary was called for further evaluation and management. Patient other significant comorbidities include diastolic heart failure. Left heart cath August 2023 normal coronary angiograms. On Lasix as needed at baseline. Chest x-ray on admission vascular congestion, bilateral pleural effusions concerning lower lobe atelectasis/pneumonia. No evidence of leukocytosis upon admission. Afebrile. Hemodynamically stable. troponin elevated at 1.30. On initial examination mild expiratory wheezing. Moderate respiratory distress. Significant hypoxia saturating 87 to 90% Ventimask at 60%. Interval update: CT A eviewed and no evidence of pulmonary embolism. No effusions noted. No airspace disease/consolidative changes noted. Echo Doppler difficult study, nonconclusive significant pulmonary hypertension and previous echocardiograms from July 2023. Increasing oxygen parameters, currently high flow 20 L 35%, will continue to wean as tolerated to nasal cannula Plan: -Continue high flow nasal cannula oxygen supplementation to maintain O2 saturation below 90% above, will continue to wean to nasal cannula as tolerated -DuoNebs every 4 and Pulmicort Pulmicort every 12 scheduled -Continue levofloxacin for a total of 5 days -Prednisone 40 mg daily x 5 days Thank you for involving pulmonary in this patient care. Will continue to follow.
--- NOTE | 2023-09-27 11:13 | EXP.CARD.PN ---
Subjective Subjective Date: 09/27/23 Time: 09:00 Principal diagnosis: pulmonary htn Interval history: This is a 63-year-old white female presented to the hospital with complaints of shortness of breath. The patient states today that her shortness of breath is much improved. She denies any chest pain or pressure. She denies any lower extremity edema. She denies any fever, chills, nausea, vomiting, diarrhea, PND or orthopnea. The patient is very anxious to go home today. She is kind of upset that her potassium is still low and it may prevent her from going home today. She states that she is feeling much better now and does not really want to stay in the hospital any longer. She also reports that her orthopnea and PND have improved. Exam Data for Last 24 hours Vital signs and Labs for Last 24 Hours: Temp Pulse Resp BP Pulse Ox O2 Del Method O2 Flow Rate 98.3 F 90 22 151/84 H 94 L Vapotherm 30 09/27/23 08:00 09/27/23 08:00 09/27/23 08:00 09/27/23 08:00 09/27/23 08:00 09/27/23 10:58 09/27/23 08:00 FiO2 50 09/27/23 08:00 Laboratory Results - last 24 hr 09/26/23 12:06: APTT 44.1 H 09/27/23 05:54: WBC 7.8, RBC 4.41, Hgb 9.6 L, Hct 32.2 L, MCV 73.0 L, MCH 21.8 L, MCHC 29.9 L, RDW 19.8 H, Plt Count 113 L, MPV 8.0, Neut % (Auto) 74.8, Lymph % (Auto) 14.9, [place] % (Auto) 9.0, Eos % (Auto) 1.2, Baso % (Auto) 0.2, Neut # (Auto) 5.8, Lymph # (Auto) 1.2, [place] # (Auto) 0.7, Eos # (Auto) 0.1, Baso # (Auto) 0.0, Sodium 132 L, Potassium 2.8 L*, Chloride 92 L, Carbon Dioxide 39 H, Anion Gap 3.8 L, BUN 6 L D, Creatinine 0.50 L D, Estimated Creat Clear 88, Estimated GFR 125, Est GFR ( Amer) 151 D, Glucose 83, Calcium 8.4 I & O for Last 24 hours: Intake & Output 09/24/23 09/25/23 09/26/23 09/27/23 23:59 23:59 23:59 23:59 Intake Total 810 / 1050 1640 / 1640 1020 / 1020 470 / 470 Output Total 2750 / 3550 4350 / 4350 1050 / 1050 900 / 900 Balance -1940 / -2500 -2710 / -2710 -30 / -30 -430 / -430 Weight 214 lb 8.156 oz 214 lb 3.2 oz 212 lb 0.015 oz 211 lb 8 oz Constitutional Constitutional: no acute distress and average body habitus *Routine HEENT Exam Head: Present normocephalic and atraumatic ENT: Present mucous membranes moist *Routine Neck Exam Neck: Present supple, full ROM and normal carotid upstroke; Absent JVD, carotid bruit or lymphadenopathy *Routine Respiratory Exam Respiratory: Present prolonged expiratory phase, rhonchi, wheezes, able to speak in complete sentences and symmetric chest movement *Routine Cardiovascular Exam Cardiovascular: Present RRR, Normal S1 and Normal S2; Absent murmur or gallop *Routine Abdominal Exam Abdominal: Present soft and normoactive bowel sounds; Absent tenderness, distended or organomegaly *Routine Extremities Exam Extremities: Present full ROM, pulses intact and normal capillary refill; Absent cyanosis, clubbing or edema *Routine Skin Exam Skin: Present intact and warm; Absent erythema *Routine Neurological Exam Neurological: Present alert, oriented X3 and CN II-XII intact; Absent sensory deficit or motor deficit Routine Psychiatric Exam Psychiatric: Present normal affect Progress Note: A&P Assessment and plan (1) Acute and chronic respiratory failure with hypoxia: Status: Acute (2) Pneumonia: Status: Acute (3) Pulmonary hypertension: Status: Acute (4) Right ventricular failure: Status: Acute (5) Elevated troponin: Status: Acute (6) Transaminitis: Status: Acute (7) Tobacco abuse: Status: Acute (8) COPD (chronic obstructive pulmonary disease): Status: Acute (9) (HFpEF) heart failure with preserved ejection fraction: Status: Chronic (10) HTN (hypertension): Status: Chronic (11) HLD (hyperlipidemia): Status: Chronic Assessment and Plan Assessment and Plan for All Diagnoses:: Plan: 1. The patient was transferred here from [facility] due to an elevated troponin and shortness of breath. This is most likely a type II AL from her underlying pulmonary disease. The patient had recent cardiac catheterization August 30, 2023 which showed normal coronary arteries. No plans for repeat left cardiac catheterization at this time. 2. Limited echocardiogram shows her ejection fraction is 55%. There is increased LV wall thickness. There is septal flattening consistent with RV pressure/volume overload. She continues to have moderately to severely dilated right ventricle and moderate reduction in RV systolic function. 3. The patient does have severe right ventricular failure which is most likely stemming from her underlying pulmonary lung disease and pulmonary hypertension. She has been started on isosorbide mononitrate for pulmonary hypertension. Pulmonology is following. 4. The patient has a history of normal coronary arteries. 5. Her blood pressure is well-controlled. 6. She does have elevated liver enzymes. Continue to hold statin. 7. The patient does have HFpEF. Continue Jardiance, spironolactone and Lasix. No beta-linda at this time as it has been shown that beta-blockers do cause worsening symptoms in patients with HFpEF. 8. The patient remains on high flow oxygen today at 40%. Will defer this to pulmonology. 9. The patient is hypokalemic. She is getting IV potassium. 10. Further recommendations will be made pending the patient's response to treatment. Thank you for the opportunity to help participate in the care of this patient. All recommendations and orders are per Dr. Valladares.
--- NOTE | 2023-09-27 11:27 | PC.NURSE ---
RESP CARE NOTE: Pt SPO2 at 85% on 20L/40%, FIO2 increased to 40%. Will continue to monitor SPO2.
[2023-09-27] MEDS: SODIUM CHLORIDE 3% 15ML NEB 3 ML IH (11:51)
[2023-09-27] MEDS: predniSONE 20MG TAB 40 MG PO (12:59)
[2023-09-27] MEDS: LEVOFLOXACIN/D5W 750 MG/150 ML 750 MG/150 ML PIGGYBACK 100 MG IV (12:59)
--- NOTE | 2023-09-27 18:29 | PC.NURSE ---
A&OX4. STILL ON VAPOTHERM BUT WEANING TOLERATED. CURRENTLY 94% ON 20L/30%. HAS BEEN UP TO CHAIR AND BATHROOM THIS SHIFT VIA W/C AND X1 ASSIST. TOLERATED WELL. NO NEEDS OR C/O THUS FAR THIS SHIFT. VSS.
[2023-09-27 18:50] LABS: Chloride 95 mmol/L (98-107); Potassium 4.4 mmoL/L (3.5-5.1); Sodium 132 mmol/L (136-145)
[2023-09-27 18:53] LABS: Anion Gap 5.4 mEq/L (5-15); Blood Urea Nitrogen 5 mg/dl (7-17); Carbon Dioxide 36 mmol/L (22.0-30.0); Creatinine Clearance Estimated 88 mL/min (50-200); Estimated Glomerular Filt Rate 101 ml/min (>60); GFR (African American) 123 ML/MIN (>60)
[2023-09-27 18:54] LABS: Calcium 8.7 mg/dl (8.4-10.2); Glucose 114 mg/dl (74-100)
[2023-09-27] MEDS: PAT OWN MED ***ATORVASTATIN 20MG 20 MG PO (21:59)
[2023-09-27] MEDS: PRAMIPEXOLE 1 MG PO (22:00)
[2023-09-27] MEDS: ESCITALOPRAM 20 MG 2 EACH PO (22:00)
[2023-09-27] MEDS: PREGABALIN 50MG CAPSULE 150 MG PO (22:05)
[2023-09-28] VITALS (13 sets, daily range): BP systolic 109–154; BP diastolic 58–84; PULSE 70–97; RESP 16–20; TEMP 36.5–36.8; O2SAT 91–95; BMI 29.0
[2023-09-28] MEDS: MELATONIN 5MG TABLET 10 MG PO (01:41)
[2023-09-28] MEDS: IPRATROPIUM/ALBUTEROL 3 ML NEB IH ×6 (02:20→22:23)
[2023-09-28] MEDS: BUDESONIDE 0.5MG/2ML NEB 0.5 MG IH ×2 (05:50→18:10)
[2023-09-28 06:28] LABS: Basophils % 0.1 % (0.1-2.0); Chloride 98 mmol/L (98-107); Eosinophils % 0.1 % (0.1-12.0); Hematocrit 34.3 % (37.0-47.0); Hemoglobin 10.1 g/dL (12.2-16.2); Lymphocytes # 0.6 K/mm3 (0.7-4.5); Lymphocytes % 13.4 % (10-50); Mean Corpuscular HGB Conc 29.5 g/dL (31.8-35.4); Mean Corpuscular Hemoglobin 21.3 pg (27.0-31.2); Mean Corpuscular Volume 72.3 fl (81-99); Mean Platelet Volume 8.2 fl (7.4-10.4); Monocytes # 0.3 K/mm3 (0.1-1.0); Monocytes % 6.3 % (1.7-9.3); Neutrophils # 3.3 K/mm3 (1.8-7.8); Platelet Count 133 K/mm3 (142-424); Red Blood Count 4.74 M/mm3 (4.20-5.40); White Blood Count 4.1 K/mm3 (4.8-10.8)
[2023-09-28 06:29] LABS: Potassium 4.4 mmoL/L (3.5-5.1); Sodium 135 mmol/L (136-145)
[2023-09-28 06:31] LABS: Alanine Aminotransferase 94 U/L (12-78); Aspartate Amino Transferase 25 U/L (14-36); Blood Urea Nitrogen 6 mg/dl (7-17); Creatinine Clearance Estimated 87 mL/min (50-200); Estimated Glomerular Filt Rate 125 ml/min (>60); GFR (African American) 151 ML/MIN (>60)
[2023-09-28 06:32] LABS: Albumin Level 3.1 g/dl (3.5-5.0); Albumin/Globulin Ratio 1.1 (1.1-1.8); Alkaline Phosphatase 70 U/L (38-126); Anion Gap 8.4 mEq/L (5-15); Bilirubin,Total 0.8 mg/dl (0.2-1.3); Calcium 8.9 mg/dl (8.4-10.2); Carbon Dioxide 33 mmol/L (22.0-30.0); Globulin 2.8 g/dL (1.3-3.2); Glucose 107 mg/dl (74-100); Magnesium 2.1 mg/dl (1.6-2.3); Total Protein,Serum 5.9 g/dl (6.3-8.2)
[2023-09-28] MEDS: ALPRAZolam 0.5MG TABLET 0.5 MG PO (08:53)
[2023-09-28] MEDS: POTASSIUM CHLORIDE 20MEQ TAB 40 MEQ PO ×2 (08:53→21:32)
[2023-09-28] MEDS: OMEPRAZOLE 40 MG 1 EACH PO ×2 (08:54→21:32)
[2023-09-28] MEDS: ISOSORBIDE MONO 30MG TAB.ER.24H 30 MG PO (08:55)
[2023-09-28] MEDS: predniSONE 20MG TAB 40 MG PO (08:56)
[2023-09-28] MEDS: ASPIRIN 81 MG PO (08:57)
[2023-09-28] MEDS: PAT OWN MED ***SPIRONOLACTONE 25MG 25 MG PO (09:00)
[2023-09-28] MEDS: EMPAGLIFLOZIN 10 MG PO (09:00)
--- NOTE | 2023-09-28 09:51 | P.PN_ITS ---
Subjective *Date: 09/28/23 *Time: 13:16 Interval history: Patient denies any new respiratory complaints. Pulmonology Exam Inpatient Vital signs and Labs for Last 24 Hours: Temp Pulse Resp BP Pulse Ox O2 Del Method O2 Flow Rate 98.3 F 89 20 154/67 H 92 L Vapotherm 20 09/28/23 08:00 09/28/23 08:00 09/28/23 08:00 09/28/23 08:00 09/28/23 08:00 09/28/23 08:00 09/28/23 05:55 FiO2 40 09/28/23 05:55 Laboratory Results - last 24 hr 09/27/23 17:58: Sodium 132 L, Potassium 4.4 D, Chloride 95 L, Carbon Dioxide 36 H, Anion Gap 5.4, BUN 5 L, Creatinine 0.60, Estimated Creat Clear 88, Estimated GFR 101, Est GFR ( Amer) 123, Glucose 114 H D, Calcium 8.7 09/28/23 06:06: WBC 4.1 L D, RBC 4.74, Hgb 10.1 L, Hct 34.3 L, MCV 72.3 L, MCH 21.3 L, MCHC 29.5 L, RDW 20.0 H, Plt Count 133 L, MPV 8.2, Neut % (Auto) 80.0, Lymph % (Auto) 13.4, [place] % (Auto) 6.3, Eos % (Auto) 0.1, Baso % (Auto) 0.1, Neut # (Auto) 3.3, Lymph # (Auto) 0.6 L, [place] # (Auto) 0.3, Eos # (Auto) 0.0, Baso # (Auto) 0.0, Sodium 135 L, Potassium 4.4, Chloride 98, Carbon Dioxide 33 H , Anion Gap 8.4, BUN 6 L, Creatinine 0.50 L, Estimated Creat Clear 87, Estimated GFR 125, Est GFR ( Amer) 151 D, Glucose 107 H, Calcium 8.9, Magnesium 2. 1, Total Bilirubin 0.8, AST 25 D, ALT 94 H D, Alkaline Phosphatase 70, Total Protein 5.9 L, Albumin 3.1 L, Globulin 2.8, Albumin/Globulin Ratio 1.1 I & O for Labs for Last 24 Hours: Intake & Output 09/25/23 09/26/23 09/27/23 09/28/23 23:59 23:59 23:59 23:59 Intake Total 1640 / 1640 1020 / 1020 710 / 710 520 / 520 Output Total 4350 / 4350 1050 / 1050 4200 / 4900 1600 / 1600 Balance -2710 / -2710 -30 / -30 -3490 / -4190 -1080 / -1080 Weight 214 lb 3.2 oz 212 lb 0.015 oz 211 lb 8 oz 207 lb 12.8 oz Constitutional: Present moderate distress Head: Present normocephalic and atraumatic ENT: Present normal exam, normal oropharynx and mucous membranes moist Neck: Present normal inspection and full ROM Respiratory: Present prolonged expiratory phase, respiratory distress, rhonchi, wheezes and able to speak in complete sentences Cardiac: Present S1/S2, Tachycardia and radial pulses present GI: Present soft and distention; Absent tenderness or guarding Rectal (female): Present deferred (female): Present deferred Skin: Present intact; Absent cyanosis or jaundice Neuro: Present alert and awake; Absent oriented x 3 Extremities: Present normal inspection; Absent clubbing or cyanosis Psychiatric: Present normal affect and cooperative Assessment and Plan *Assessment and plan (1) Acute and chronic respiratory failure with hypoxia: Status: Acute Category: Medical Code(s): J96.21 - Acute and chronic respiratory failure with hypoxia (2) Pneumonia: Status: Acute Qualifiers: Laterality: unspecified laterality Lung location: unspecified part of lung Pneumonia type: due to unspecified organism Qualified Code(s): J18.9 - Pneumonia, unspecified organism Category: Medical Code(s): J18.9 - Pneumonia, unspecified organism Plan Ms. Shaw is a 63-year-old female greater than [id number] smoking history, severe COPD, lung nodules on triple inhaler therapy advised on 1-2 L nasal cannula oxygen supplementation presented to the ER complaining of worsening respiratory distress pulmonary was called for further evaluation and management. Patient other significant comorbidities include diastolic heart failure. Left heart cath August 2023 normal coronary angiograms. On Lasix as needed at baseline. Chest x-ray on admission vascular congestion, bilateral pleural effusions concerning lower lobe atelectasis/pneumonia. No evidence of leukocytosis upon admission. Afebrile. Hemodynamically stable. troponin elevated at 1.30. On initial examination mild expiratory wheezing. Moderate respiratory distress. Significant hypoxia saturating 87 to 90% Ventimask at 60%. CT A eviewed and no evidence of pulmonary embolism. No effusions noted. No airspace disease/consolidative changes noted. Echo Doppler difficult study, nonconclusive significant pulmonary hypertension and previous echocardiograms from July 2023 Interval update: Patient denies any respiratory complaint. She is delirious this morning. Precautions in place. Oxygen commands continue treatment-nasal cannula 20 L 40% saturating 96%. Plan was to wean her to nasal cannula. Plan: BiPAP at night , 04/06 OR home machine at home settings Wean to nasal to maintain O2 saturation goal of 90% on room -DuoNebs every 4 and Pulmicort Pulmicort every 12 scheduled -Continue levofloxacin for a total of 5 days -Prednisone 40 mg daily x 5 days Thank you for involving pulmonary in this patient care. Will continue to gianna holcomb
--- NOTE | 2023-09-28 10:32 | HMH.PTEV ---
Physical Therapy Evaluation Rehab PT IP Evaluation Start: 09/28/23 08:32 Freq: .once Status: Active Protocol: Document 09/28/23 10:22 VENKATA (Rec: 09/28/23 10:31 PHOSABIHA [id number]) Subjective/History History History 63 yowf adm to [facility] with NSTEMI . She has PMH of HTN, HLD, CHF , CAD, COPD, fibromyalgia, pulmonary fibrosis. She uses oxygen via NC at all times at baseline. She lives with her , ramp to enter the home, and uses a RW for all ambulation at baseline. Her performs all of her ADLs for her at baseline also. Subjective Subjective Pt has no c/o this am other than reporting she hasn't slept for at least 2 days. She does agree to mobility assessment with encouragement. New diagnosis of cancer in past 12 No months? Rehab PT IP Eval Objective Appearance Patient Behavior Appropriate,Distractible, Impulsive Patient Orientation Person,Place,Time Difficulty following instructions none Speech Pattern Clear Ambulation Patient Able to Ambulate Yes Ambulation Observation IP General Gait Pattern Observation Shuffling Step Ambulation Distance (feet) 15 Ambulation Assistive Device Rolling Walker Ambulation Ability Contact Guard/Hand Hold Balance Ability to Arise Able, uses arms to help Sitting Balance Steady, safe Standing Balance Steady, wide stance Dynamic Sitting Balance Ability Good Dynamic Standing Balance Ability Fair Transfers Bed Transfer Ability Supervision/Stand by Chair Transfer Ability Contact Guard/Hand Hold Sit to Stand Bed Transfer Ability Contact Guard/Hand Hold Sit to Stand Chair Transfer Ability Contact Guard/Hand Hold ROM All Extremities PT ROM Status WFL MMT All Extremities PT MMT WFL Rehab PT IP prob,goals,plan Problems Date of Evaluation: 09/28/23 PT IP Problems Transfers,Gait,Self care Rehab Potential Rehab Potential Fair Plan PT Intervention Plan Transfers,Gait,Self care, Therapeutic Exercise PT Plan Frequency Daily Duration LOS Discharge Goals Bed Transfer Ability Supervision/Stand by Sit to Stand Chair Transfer Ability Supervision/Stand by Ambulation Assistive Device Rolling Walker Ambulation Distance (feet) 30 Discharge Plan PT Discharge Plan Pt is currently appropriate to return home once medically stable for d/c. Skilled intervention is needed to prevent further debility, injury, falls, and wounds. Eval Complexity Eval Charge Codes 47856 - High Complexity PHYSICIAN CERTIFICATION: I certify the specified therapy services for Lacy D Colin are required, authorized, and reviewed every 30 days.
[2023-09-28] MEDS: LEVOFLOXACIN/D5W 750 MG/150 ML 750 MG/150 ML PIGGYBACK 100 MG IV (11:46)
--- NOTE | 2023-09-28 13:02 | P.PN_ITS ---
Subjective Subjective Date: 09/28/23 Time: 09:00 Principal diagnosis: pulmonary htn Interval history: This is a 61-year-old white female presented to the hospital with complaints of shortness of breath. She continues to state that her shortness of breath has improved but she does remain on high flow oxygen this morning. She denies any chest pain or pressure. She denies any lower extremity edema. She denies any fever, chills, nausea, vomiting, diarrhea, PND orthopnea. The patient is very anxious to go home but somewhat confused this morning. She is alert and oriented x 3 but she is not always making sense with her answers and ex planations to questions. She gets very confused but reorients easily. She has not slept in 48 hours and states this is because she remains in the hospital but she still requires high flow oxygen at this time. She is still having some orthopnea with her shortness of breath. Exam Data for Last 24 hours Vital signs and Labs for Last 24 Hours: Temp Pulse Resp BP Pulse Ox O2 Del Method O2 Flow Rate 98.3 F 87 20 154/67 H 93 L Vapotherm 20 09/28/23 08:00 09/28/23 10:03 09/28/23 08:00 09/28/23 08:00 09/28/23 10:03 09/28/23 10:03 09/28/23 10:03 FiO2 40 09/28/23 10:03 Laboratory Results - last 24 hr 09/27/23 17:58: Sodium 132 L, Potassium 4.4 D, Chloride 95 L, Carbon Dioxide 36 H, Anion Gap 5.4, BUN 5 L, Creatinine 0.60, Estimated Creat Clear 88, Estimated GFR 101, Est GFR ( Amer) 123, Glucose 114 H D, Calcium 8.7 09/28/23 06:06: WBC 4.1 L D, RBC 4.74, Hgb 10.1 L, Hct 34.3 L, MCV 72.3 L, MCH 21.3 L, MCHC 29.5 L, RDW 20.0 H, Plt Count 133 L, MPV 8.2, Neut % (Auto) 80.0, Lymph % (Auto) 13.4, [place] % (Auto) 6.3, Eos % (Auto) 0.1, Baso % (Auto) 0.1, Neut # (Auto) 3.3, Lymph # (Auto) 0.6 L, [place] # (Auto) 0.3, Eos # (Auto) 0.0, Baso # (Auto) 0.0, Sodium 135 L, Potassium 4.4, Chloride 98, Carbon Dioxide 33 H , Anion Gap 8.4, BUN 6 L, Creatinine 0.50 L, Estimated Creat Clear 87, Estimated GFR 125, Est GFR ( Amer) 151 D, Glucose 107 H, Calcium 8.9, Magnesium 2.1, Total Bilirubin 0.8, AST 25 D, ALT 94 H D, Alkaline Phosphatase 70, Total Protein 5.9 L, Albumin 3.1 L, Globulin 2.8, Albumin/Globulin Ratio 1.1 I & O for Last 24 hours: Intake & Output 09/25/23 09/26/23 09/27/23 09/28/23 23:59 23:59 23:59 23:59 Intake Total 1640 / 1640 1020 / 1020 710 / 710 790 / 790 Output Total 4350 / 4350 1050 / 1050 4200 / 4900 1600 / 1600 Balance -2710 / -2710 -30 / -30 -3490 / -4190 -810 / -810 Weight 214 lb 3.2 oz 212 lb 0.015 oz 211 lb 8 oz 207 lb 12.8 oz Constitutional Constitutional: no acute distress and average body habitus *Routine HEENT Exam Head: Present normocephalic and atraumatic ENT: Present mucous membranes moist *Routine Neck Exam Neck: Present supple, full ROM and normal carotid upstroke; Absent JVD, carotid bruit or lymphadenopathy *Routine Respiratory Exam Respiratory: Present prolonged expiratory phase, rhonchi, wheezes, able to speak in complete sentences and symmetric chest movement *Routine Cardiovascular Exam Cardiovascular: Present RRR, Normal S1 and Normal S2; Absent murmur or gallop *Routine Abdominal Exam Abdominal: Present soft and normoactive bowel sounds; Absent tenderness, distended or organomegaly *Routine Extremities Exam Extremities: Present full ROM, pulses intact and normal capillary refill; Absent cyanosis, clubbing or edema *Routine Skin Exam Skin: Present intact and warm; Absent erythema *Routine Neurological Exam Neurological: Present alert, oriented X3 and CN II-XII intact; Absent sensory deficit or motor deficit Routine Psychiatric Exam Psychiatric: Present normal affect and anxious Comments: intermittent confusion Progress Note: A&P Assessment and plan (1) Acute and chronic respiratory failure with hypoxia: Status: Acute (2) Pneumonia: Status: Acute (3) Elevated troponin: Status: Acute (4) Right ventricular failure: Status: Acute (5) Pulmonary hypertension: Status: Acute (6) NSTEMI (non-ST elevated myocardial infarction): Status: Acute (7) Transaminitis: Status: Acute (8) Tobacco abuse: Status: Acute (9) COPD (chronic obstructive pulmonary disease): Status: Acute (10) (HFpEF) heart failure with preserved ejection fraction: Status: Chronic (11) HTN (hypertension): Status: Chronic (12) HLD (hyperlipidemia): Status: Chronic (13) Shortness of Breath: Status: Acute Assessment and Plan Assessment and Plan for All Diagnoses:: Plan: 1. The patient was transferred here from [facility] due to an elevated troponin and shortness of breath. This is most likely a type II GA from her underlying pulmonary disease. The patient had recent cardiac catheterization August 30, 2023 which showed normal coronary arteries. No plans for repeat left cardiac catheterization at this time. 2. Limited echocardiogram shows her ejection fraction is 55%. There is increased LV wall thickness. There is septal flattening consistent with RV pressure/volume overload. She continues to have moderately to severely dilated right ventricle and moderate reduction in RV systolic function. The patient does have severe right ventricular failure which is most likely stemming from her underlying pulmonary lung disease and pulmonary hypertension. She has been started on isosorbide mononitrate for pulmonary hypertension. Pulmonology is following. 3. The patient has a history of normal coronary arteries. 4. Her blood pressure is well-controlled. 5. She does have elevated liver enzymes. Continue to hold statin. Her LDL goal is less than 100. 6. The patient does have HFpEF. Continue Jardiance, spironolactone and Lasix. No beta-linda at this time as it has been shown that beta-blockers do cause worsening symptoms in patients with HFpEF. 7. The patient remains on high flow oxygen today at 40%. Will defer this to pulmonology. 8. Further recommendations will be made pending the patient's response to treatment. Thank you for the opportunity to help participate in the care of this patient. All recommendations and orders are per Dr. Valladares.
--- NOTE | 2023-09-28 13:55 | PC.NURSE ---
RESP CARE NOTE: Pt placed on room air, SPO2 decreased to 81% within 2 mins. Oxygen replaced at 3 lpm, SPO2 remains at 93% on 3 lpm nasal cannula.
--- NOTE | 2023-09-28 16:20 | EXP.ACUTE.PN ---
Subjective *Date: 09/28/23 *Time: 16:20 Interval history: Patient appears confused today. Not sleeping well over the past 2 nights. Has numerous questions that are repetitive and appears confused as to her course. Recognizes she is confused, is oriented to self and place but has lost track of time. States she is not sure what she is being treated for and is getting mixed messages from the team. Reiterated plan today and explained her current diagnoses, treatment plan, prognosis over the coming days. at bedside states understanding. Will bundle care to assist with sleep tonight. No nausea or vomiting. No chest pain. Medical Exam Vital signs and Labs for Last 24 Hours: Vital Signs Temp Pulse Pulse Resp BP Pulse Ox O2 Del Method 09/28/23 13:57 85 09/28/23 13:57 83 09/28/23 10:03 87 09/28/23 10:03 87 09/28/23 10:03 93 L Vapotherm 09/28/23 08:00 90 09/28/23 08:00 98.3 F 89 20 154/67 H 92 L Vapotherm 09/28/23 06:50 Vapotherm 09/28/23 04:00 70 09/28/23 05:55 87 09/28/23 05:55 87 09/28/23 05:55 95 Mechanical Ventilation, Vapotherm 09/28/23 04:58 Vapotherm 09/28/23 03:00 Vapotherm 09/28/23 01:00 Vapotherm 09/28/23 03:58 97.9 F 89 18 109/58 L 94 L Vapotherm 09/28/23 02:21 82 09/28/23 02:21 84 09/28/23 00:00 94 H 09/27/23 20:00 89 09/27/23 23:00 Vapotherm 09/27/23 21:00 Vapotherm 09/27/23 20:00 91 L Vapotherm 09/28/23 00:00 98.2 F 89 18 142/81 H 91 L Vapotherm 09/27/23 23:26 85 09/27/23 23:25 88 09/27/23 20:00 97.8 F 82 18 120/73 95 Vapotherm 09/27/23 18:36 Vapotherm 09/27/23 18:17 84 09/27/23 18:17 84 09/27/23 18:17 96 Vapotherm 09/27/23 17:00 Vapotherm O2 Flow Rate FiO2 09/28/23 13:57 09/28/23 13:57 09/28/23 10:03 09/28/23 10:03 09/28/23 10:03 20 40 09/28/23 08:00 09/28/23 08:00 09/28/23 06:50 09/28/23 04:00 09/28/23 05:55 09/28/23 05:55 09/28/23 05:55 20 40 09/28/23 04:58 09/28/23 03:00 09/28/23 01:00 20 09/28/23 03:58 09/28/23 02:21 09/28/23 02:21 09/28/23 00:00 09/27/23 20:00 09/27/23 23:00 20 09/27/23 21:00 20 09/27/23 20:00 20 30 09/28/23 00:00 09/27/23 23:26 09/27/23 23:25 09/27/23 20:00 09/27/23 18:36 09/27/23 18:17 09/27/23 18:17 09/27/23 18:17 30 40 09/27/23 17:00 Intake and Output 09/28/23 09/28/23 09/28/23 07:59 15:59 23:59 Intake Total 520 / 790 270 / 790 Output Total 1600 / 1600 Balance -1080 / -810 270 / -810 Intake: Intake, Oral Amount 520 / 790 270 / 790 Output: Output, Urine Amount 1600 / 1600 Other: Weight 94.256 kg Patient Weight 09/28/23 23:59 Weight 94.256 kg Laboratory Results - last 24 hr 09/27/23 17:58: Sodium 132 L, Potassium 4.4 D, Chloride 95 L, Carbon Dioxide 36 H, Anion Gap 5.4, BUN 5 L, Creatinine 0.60, Estimated Creat Clear 88, Estimated GFR 101, Est GFR ( Amer) 123, Glucose 114 H D, Calcium 8.7 09/28/23 06:06: WBC 4.1 L D, RBC 4.74, Hgb 10.1 L, Hct 34.3 L, MCV 72.3 L, MCH 21.3 L, MCHC 29.5 L, RDW 20.0 H, Plt Count 133 L, MPV 8.2, Neut % (Auto) 80.0, Lymph % (Auto) 13.4, [place] % (Auto) 6.3, Eos % (Auto) 0.1, Baso % (Auto) 0.1, Neut # (Auto) 3.3, Lymph # (Auto) 0.6 L, [place] # (Auto) 0.3, Eos # (Auto) 0.0, Baso # (Auto) 0.0, Sodium 135 L, Potassium 4.4, Chloride 98, Carbon Dioxide 33 H, Anion Gap 8.4, BUN 6 L, Creatinine 0.50 L, Estimated Creat Clear 87, Estimated GFR 125, Est GFR ( Amer) 151 D, Glucose 107 H, Calcium 8.9, Magnesium 2.1, Total Bilirubin 0.8, AST 25 D, ALT 94 H D, Alkaline Phosphatase 70, Total Protein 5.9 L, Albumin 3.1 L, Globulin 2.8, Albumin/Globulin Ratio 1.1 I & O for Labs for Last 24 Hours: Intake & Output 09/25/23 09/26/23 09/27/23 09/28/23 23:59 23:59 23:59 23:59 Intake Total 1640 / 1640 1020 / 1020 710 / 710 790 / 790 Output Total 4350 / 4350 1050 / 1050 4200 / 4900 1600 / 1600 Balance -2710 / -2710 -30 / -30 -3490 / -4190 -810 / -810 Weight 97.159 kg 96.162 kg 95.935 kg 94.256 kg Constitutional: Present no acute distress, obese and chronically ill appearing Head: Present atraumatic ENT: Present normal exam Respiratory: Present prolonged expiratory phase, wheezes and normal respiratory effort; Absent rhonchi or crackles Cardiac: Present Reg Rate and Rhythm GI: Present soft and normal bowel sounds; Absent distention or tenderness Extremities: Present normal inspection, full ROM and edema (trace) Skin: Present intact; Absent erythema Neuro: Present Grossly Intact, alert, awake, oriented x 3 and moves all extremities Assessment and Plan *Assessment and plan (1) NSTEMI (non-ST elevated myocardial infarction): Status: Acute Category: Medical Code(s): I21.4 - Non-ST elevation (NSTEMI) myocardial infarction (2) CHF exacerbation: Status: Acute Category: Medical Code(s): I50.9 - Heart failure, unspecified (3) Transaminitis: Status: Acute Category: Medical Code(s): R74.01 - Elevation of levels of liver transaminase levels (4) COPD (chronic obstructive pulmonary disease): Status: Acute Qualifiers: COPD type: unspecified COPD Qualified Code(s): J44.9 - Chronic obstructive pulmonary disease, unspecified Category: Medical Code(s): J44.9 - Chronic obstructive pulmonary disease, unspecified (5) HTN (hypertension): Status: Chronic Qualifiers: Hypertension type: primary hypertension Qualified Code(s): I10 - Essential (primary) hypertension Category: Medical Code(s): I10 - Essential (primary) hypertension (6) HLD (hyperlipidemia): Status: Chronic Qualifiers: Hyperlipidemia type: unspecified Qualified Code(s): E78.5 - Hyperlipidemia, unspecified Category: Medical Code(s): E78.5 - Hyperlipidemia, unspecified (7) Tobacco abuse: Status: Acute Category: Medical Code(s): Z72.0 - Tobacco use (8) Obesity: Status: Chronic Qualifiers: Obesity type: due to excess calories Obesity classification: adult class 1 (BMI 30 - 34.9) Serious obesity comorbidity presence: with serious comorbidity Body mass index: BMI 30.0-30.9 Qualified Code(s): E66.09 - Other obesity due to excess calories; Z68.30 - Body mass index [BMI] 30.0-30.9, adult Category: Medical Code(s): E66.9 - Obesity, unspecified Plan 63 year old female presented to [facility] via direct transfer from [facility]. She presented to [place] ED with c/o SOA and weakness since 09/03/2023. At [place] the pt's troponins and liver enzymes where elevated. Upon admission the pt's initial troponin is 1.26, AST 733 and ALT 403. She was given 80mg IV Lasix and started on a heparin gtt prior to transfer. PMHX of HTN, HLD, CHF, COPD, Tobacco abuse, and obesity. UPon arrival pt appears jaundice and is still c/o SOA. Jaundice is improved. Continues to require inpatient management. Treating problems as follows. Cardiology and pulmonology consulted and assisting with care. Problems addressed as follows: NSTEMI Acute on chronic heart failure with preserved ejection fraction - Cardiology consulted. Recommend considering heart cath either prior to discharge if stable or at follow-up as an outpatient. Severe right ventricular failure most likely from her underlying pulmonary disease. -Continue isosorbide mononitrate 30 mg daily. Continue Jardiance. Acute on chronic hypoxemic respiratory failure COPD exacerbation - Pulmonology consulted, appreciate their assistance. Discussed case, will wean to nasal cannula oxygen. Recommend initiating CPAP this evening with home settings. Goal saturation greater 90%. Wean as tolerated - Continue DuoNebs every 4 hours and Pulmicort every 12 hours scheduled. Continue levofloxacin for total of 5 days. Continue prednisone 40 mg daily for 5 days. TRANSAMINITIS -Liver enzymes more or less normalized at this point with bilirubin of 0.8, AST 25, ALT 94. -Hepatitis panel pending Hypokalemia: Potassium 4.4, CBC, CMP, magnesium ordered for the morning. TOBACCO ABUSE: nicotine patched PRN OBESITY: complicates all aspects of care Full code Cardiac diet
--- NOTE | 2023-09-28 18:41 | PC.NURSE ---
Patient confused and paranoid all shift. Patient has not slept for 2 days and is delerious from lack of sleep. Patiet states not trusting that home meds are her home meds and needed to verify that they were in fact her medicines.
[2023-09-28] MEDS: PAT OWN MED ***ATORVASTATIN 20MG 20 MG PO (21:32)
[2023-09-28] MEDS: ESCITALOPRAM 20 MG 2 EACH PO (21:32)
[2023-09-28] MEDS: PROMETHAZINE 25MG TABLET 25 MG PO (21:32)
[2023-09-28] MEDS: PRAMIPEXOLE 1 MG PO (21:32)
[2023-09-28] MEDS: PREGABALIN 50MG CAPSULE 150 MG PO (21:32)
--- NOTE | 2023-09-28 22:27 | PC.NURSE ---
RESPIRATORY NOTE: PATIENT REFUSED BIPAP TONIGHT. PATIENT SAID TO HOLD OFF FOR TONIGHT.
--- NOTE | 2023-09-28 23:59 | PC.NURSE ---
RESPIRATORY NOTE: PATIENT WAS SATING IN THE HIGH 70s ON 3LPM ASLEEP. PLACED PATIENT ON BIPAP SATING INCREASED TO 99%.
[2023-09-29] MEDS: IPRATROPIUM/ALBUTEROL 3 ML NEB IH ×3 (01:59→10:12)
[2023-09-29 04:00] VITALS: BMI 29.4
[2023-09-29 05:00] VITALS: BP 115/66; PULSE 92; RESP 20; TEMP 36.8; O2SAT 100
[2023-09-29 06:20] VITALS: PULSE 76; PULSE 78; O2SAT 96
[2023-09-29] MEDS: BUDESONIDE 0.5MG/2ML NEB 0.5 MG IH (06:21)
--- NOTE | 2023-09-29 07:11 | PC.NURSE ---
Patient wore BiPap from 2300 to 0500. BiPap removed per patient request. 3L NC with 02 at 97%. Alert and orient to person, place and situation. Patient currently laying in bed with eyes closed at this time. No distress noted.
[2023-09-29 07:14] LABS: Chloride 101 mmol/L (98-107)
[2023-09-29 07:15] LABS: Potassium 4.4 mmoL/L (3.5-5.1); Sodium 136 mmol/L (136-145)
[2023-09-29 07:17] LABS: Alanine Aminotransferase 64 U/L (12-78); Alkaline Phosphatase 66 U/L (38-126); Anion Gap 4.4 mEq/L (5-15); Aspartate Amino Transferase 21 U/L (14-36); Basophils % 0.1 % (0.1-2.0); Bilirubin,Total 0.6 mg/dl (0.2-1.3); Blood Urea Nitrogen 7 mg/dl (7-17); Carbon Dioxide 35 mmol/L (22.0-30.0); Creatinine Clearance Estimated 88 mL/min (50-200); Eosinophils % 0.1 % (0.1-12.0); Estimated Glomerular Filt Rate 125 ml/min (>60); GFR (African American) 151 ML/MIN (>60); Hematocrit 34.4 % (37.0-47.0); Hemoglobin 9.6 g/dL (12.2-16.2); Lymphocytes % 16.1 % (10-50); Mean Corpuscular HGB Conc 27.9 g/dL (31.8-35.4); Mean Corpuscular Hemoglobin 20.9 pg (27.0-31.2); Mean Corpuscular Volume 74.9 fl (81-99); Mean Platelet Volume 7.9 fl (7.4-10.4); Monocytes # 0.6 K/mm3 (0.1-1.0); Monocytes % 9.5 % (1.7-9.3); Neutrophils # 4.6 K/mm3 (1.8-7.8); Neutrophils % 74.3 % (37.0-80.0); Platelet Count 182 K/mm3 (142-424); Red Blood Count 4.59 M/mm3 (4.20-5.40); Red Cell Distribution Width 19.7 % (11.5-17.5); White Blood Count 6.1 K/mm3 (4.8-10.8)
[2023-09-29 07:18] LABS: Albumin Level 2.9 g/dl (3.5-5.0); Albumin/Globulin Ratio 1.1 (1.1-1.8); Globulin 2.7 g/dL (1.3-3.2); Glucose 108 mg/dl (74-100); Total Protein,Serum 5.6 g/dl (6.3-8.2)
[2023-09-29 08:00] VITALS: BP 104/66; PULSE 100; RESP 18; TEMP 36.8; O2SAT 92
--- NOTE | 2023-09-29 08:03 | P.DS_ITS ---
General Admission date:: 09/23/23 Discharge date: 09/29/23 HPI HPI HPI: 63 year old female presented to [facility] via direct transfer from [facility]. She presented to [place] ED with c/o SOA and weakness since 09/03/2023. At [place] the pt's troponins and liver enzymes where elevated. Upon admission the pt's initial troponin is 1.26, AST 733 and ALT 403. She was given 80mg IV Lasix and started on a heparin gtt prior to transfer. PMHX of HTN, HLD, CHF, CAD, COPD, Tobacco abuse, and obesity. UPon arrival pt appears jaundice and is still c/o SOA. She will receive a Cardiac consult and continue the lasix and heparin gtt. Hospital Course Hospital Course Hospital Course: 63 year old female presented to [facility] via direct transfer from [facility]. She presented to [place] ED with c/o SOA and weakness since 09/03/2023. At [facility] [place] the pt's troponins and liver enzymes where elevated. Upon admission the pt's initial troponin is 1.26, AST 733 and ALT 403. She was given 80mg IV Lasix and started on a heparin gtt prior to transfer. PMHX of HTN, HLD, CHF, COPD, Tobacco abuse, and obesity. UPon arrival pt appears jaundice and is still c/o SOA. Jaundice is improved. Cardiology and pulmonology consulted and assisted with care. Treated for conditions as follows: NSTEMI Acute on chronic heart failure with preserved ejection fraction - Cardiology consulted. The patient had recent cardiac catheterization August 30, 2023 which showed normal coronary arteries. No plans for repeat left cardiac catheterization at this time. Limited echocardiogram shows her ejection fraction is 55%. There is increased LV wall thickness. There is septal flattening consistent with RV pressure/volume overload. She continues to have moderately to severely dilated right ventricle and moderate reduction in RV systolic function. The patient does have severe right ventricular failure which is most likely stemming from her underlying pulmonary lung disease and pulmonary hypertension. She has been started on isosorbide mononitrate for pulmonary hypertension. Pulmonology is following. Patient diuresing well. No Lasix at discharge. No beta-blockers at this time due to concern of beta-blockers could could worsen symptoms in her form of heart failure. No further recommendations from cardiology. Plan for outpatient follow-up in the next 1 to 2 weeks. Acute on chronic hypoxemic respiratory failure COPD exacerbation - Pulmonology consulted, appreciate their assistance. Oxygen gradually weaned during admission. Recommend continuing CPAP at discharge. Used home settings. Stable on 3 L nasal cannula at time of discharge. Treated with DuoNebs and Pulmicort during admission. Transition to home inhaler regimen at discharge. Continue levofloxacin for total of 5 days. Continue prednisone 40 mg daily for 5 days. TRANSAMINITIS: Liver enzymes initially elevated, secondary to pulmonary congestion. Hepatitis panel negative. Levels normalized prior to discharge. Recommend repeat CMP within the next 2 to 4 weeks to monitor for stability. Hypokalemia: Potassium normalized during admission. TOBACCO ABUSE: nicotine patched daily Spent 30 minutes in discharge counseling, documentation, chart review, and direct care with patient. Exam Data for Last 24 hours Vital signs and Labs for Last 24 Hours: Temp Pulse Resp BP Pulse Ox O2 Del Method O2 Flow Rate 98.3 F 76 20 115/66 96 Nasal Cannula 3 09/29/23 05:00 09/29/23 06:20 09/29/23 05:00 09/29/23 05:00 09/29/23 06:20 09/29/23 07:00 09/29/23 07:00 FiO2 40 09/28/23 23:58 Laboratory Results - last 24 hr 09/29/23 06:10: WBC 6.1 D, RBC 4.59, Hgb 9.6 L, Hct 34.4 L, MCV 74.9 L, MCH 20.9 L, MCHC 27.9 L, RDW 19.7 H, Plt Count 182 D, MPV 7.9, Neut % (Auto) 74.3, Lymph % (Auto) 16.1, [place] % (Auto) 9.5 H, Eos % (Auto) 0.1, Baso % (Auto) 0.1, Neut # (Auto) 4.6, Lymph # (Auto) 1.0, [place] # (Auto) 0.6, Eos # (Auto) 0.0, Baso # (Auto) 0.0, Sodium 136, Potassium 4.4, Chloride 101, Carbon Dioxide 35 H, Anion Gap 4.4 L, BUN 7, Creatinine 0.50 L, Estimated Creat Clear 88, Estimated GFR 125, Est GFR ( Amer) 151, Glucose 108 H, Calcium 9.0, Total Bilirubin 0.6, AST 21, ALT 64 D, Alkaline Phosphatase 66, Total Protein 5.6 L, Albumin 2.9 L, Globulin 2.7, Albumin/Globulin Ratio 1.1 I & O for Last 24 hours: Intake & Output 09/26/23 09/27/23 09/28/23 09/29/23 23:59 23:59 23:59 23:59 Intake Total 1020 / 1020 710 / 710 1330 / 1690 360 / 360 Output Total 1050 / 1050 4200 / 4900 4150 / 5250 2100 / 2100 Balance -30 / -30 -3490 / -4190 -2820 / -3560 -1740 / -1740 Weight 96.162 kg 95.935 kg 94.256 kg 95.39 kg Microbiology Reports for the Last 24 Hours: Microbiology 09/26/23 11:36 Blood Blood Culture - Preliminary 09/26/23 11:48 Blood Blood Culture - Preliminary Constitutional Constitutional: no acute distress, average body habitus, chronically ill appearing and cooperative *Routine HEENT Exam Head: Present normocephalic Eye: Present EOMI and PERRL ENT: Present mucous membranes moist *Routine Neck Exam Neck: Present supple; Absent lymphadenopathy *Routine Respiratory Exam Respiratory: Present CTA bilaterally, prolonged expiratory phase, wheezes and normal respiratory effort; Absent rhonchi or crackles *Routine Cardiovascular Exam Cardiovascular: Present RRR *Routine Abdominal Exam Abdominal: Present soft and normoactive bowel sounds; Absent tenderness *Routine Rectal Exam Patient deferred: visual exam *Routine Exam Patient deferred: external exam *Routine Extremities Exam Extremities: Absent cyanosis, clubbing or edema *Routine Skin Exam Skin: Present intact and warm; Absent rash *Routine Neurological Exam Neurological: Present alert, oriented X3 and moving all extremities; Absent altered mental status Results Data Completed and Pending Labs on day of discharge: Labs from last 24 hours 09/29/23 06:10 WBC 6.1 D RBC 4.59 Hgb 9.6 L Hct 34.4 L MCV 74.9 L MCH 20.9 L MCHC 27.9 L RDW 19.7 H Plt Count 182 D MPV 7.9 Neut % (Auto) 74.3 Lymph % (Auto) 16.1 [place] % (Auto) 9.5 H Eos % (Auto) 0.1 Baso % (Auto) 0.1 Neut # (Auto) 4.6 Lymph # (Auto) 1.0 [place] # (Auto) 0.6 Eos # (Auto) 0.0 Baso # (Auto) 0.0 Sodium 136 Potassium 4.4 Chloride 101 Carbon Dioxide 35 H Anion Gap 4.4 L BUN 7 Creatinine 0.50 L Estimated Creat Clear 88 Estimated GFR 125 Est GFR ( Amer) 151 Glucose 108 H Calcium 9.0 Total Bilirubin 0.6 AST 21 ALT 64 D Alkaline Phosphatase 66 Total Protein 5.6 L Albumin 2.9 L Globulin 2.7 Albumin/Globulin Ratio 1.1 Preliminary micro results at discharge 09/26/23 11:36 Blood Culture - Preliminary Blood 09/26/23 11:48 Blood Culture - Preliminary Blood DS: Diagnosis Discharge Diagnosis (1) NSTEMI (non-ST elevated myocardial infarction): Status: Acute Code(s): I21.4 - Non-ST elevation (NSTEMI) myocardial infarction (2) CHF exacerbation: Status: Acute Code(s): I50.9 - Heart failure, unspecified (3) Transaminitis: Status: Resolved Code(s): R74.01 - Elevation of levels of liver transaminase levels (4) COPD (chronic obstructive pulmonary disease): Status: Acute Code(s): J44.9 - Chronic obstructive pulmonary disease, unspecified Qualifiers: COPD type: unspecified COPD Qualified Code(s): J44.9 - Chronic obstructive pulmonary disease, unspecified (5) HTN (hypertension): Status: Chronic Code(s): I10 - Essential (primary) hypertension Qualifiers: Hypertension type: primary hypertension Qualified Code(s): I10 - Essential (primary) hypertension (6) HLD (hyperlipidemia): Status: Chronic Code(s): E78.5 - Hyperlipidemia, unspecified Qualifiers: Hyperlipidemia type: unspecified Qualified Code(s): E78.5 - Hyperlipidemia, unspecified (7) Tobacco abuse: Status: Acute Code(s): Z72.0 - Tobacco use (8) Obesity: Status: Chronic Code(s): E66.9 - Obesity, unspecified Qualifiers: Body mass index: BMI 30.0-30.9 Obesity classification: adult class 1 (BMI 30 - 34.9) Obesity type: due to excess calories Serious obesity comorbidity presence: with serious comorbidity Qualified Code(s): E66.09 - Other obesity due to excess calories; Z68.30 - Body mass index [BMI] 30.0-30.9, adult Meds Home Medications and Allergies Home Medications Medication Instructions Recorded Confirmed Type aspirin 81 mg tablet,delayed 81 mg PO DAILY 08/09/22 10/03/23 History release (Adult Low Dose Aspirin) hydromorphone (PF) 1 mg/mL 1 mg SQ .COMPLEX PRN Pain 12/08/22 10/03/23 History injection syringe (Dilaudid (PF)) cyanocobalamin (vitamin B-12) 1,000 mcg IM MONTHLY Supplement 01/24/23 10/03/23 Rx 1,000 mcg/mL injection solution #10 mL fluticasone propionate 50 1 spray intranasal DAILYP PRN 04/04/23 10/03/23 History mcg/actuation nasal Allergies spray,suspension (Flonase Allergy Relief) spironolactone 25 mg tablet 25 mg PO DAILY Fluid #90 tabs 04/05/23 10/03/23 Rx empagliflozin 10 mg tablet 10 mg PO DAILY Heart failure 30 04/28/23 10/03/23 Rx days #30 tabs fluticasone furoate 100 1 inh inhalation DAILY 05/24/23 10/03/23 History mcg-vilanterol 25 mcg/dose inhalation powder (Breo Ellipta) inhalational spacing device #10 ea 08/11/23 10/03/23 Rx (Aerochamber MV spacer) pramipexole 1 mg tablet 1 mg PO HS 08/11/23 10/03/23 History albuterol sulfate 90 mcg/actuation 2 puff inhalation QIDP PRN 08/30/23 10/03/23 History aerosol inhaler Shortness Of Breath Or Wheezing colestipol 1 gram tablet 1 g PO BID 08/30/23 10/03/23 History ipratropium 0.5 mg-albuterol 3 mg 3 ml inhalation Q6HP PRN Shortness 08/30/23 10/03/23 History (2.5 mg base)/3 mL nebulization Of Breath Or Wheezing soln omeprazole 40 mg capsule,delayed 40 mg PO BID 08/30/23 10/03/23 History release potassium chloride 20 mEq 40 meq PO PM 08/30/23 10/03/23 History tablet,extended release(part/cryst) tiotropium bromide 2.5 2 puff inhalation DAILY 08/30/23 10/03/23 History mcg/actuation mist for inhalation (Spiriva Respimat) furosemide 40 mg tablet 40 mg PO BID 30 days #60 tabs 08/31/23 10/03/23 Rx varenicline 1 mg tablet (Chantix 1 mg PO BID #60 tabs 09/08/23 10/03/23 Rx Continuing Month Box) ondansetron 4 mg disintegrating 4 mg PO BID PRN nausea and 09/19/23 10/03/23 Rx tablet vomiting 5 days #10 tabs promethazine 25 mg tablet 25 mg PO Q6H PRN nausea and 09/20/23 10/03/23 Rx vomiting #20 tabs alprazolam 0.5 mg tablet 0.5 mg PO BIDP PRN Anxiety 09/24/23 10/03/23 History atorvastatin 20 mg tablet 20 mg PO HS Cholesterol 09/24/23 10/03/23 History azithromycin 250 mg tablet 250 mg PO MOWEFR 09/24/23 10/03/23 History escitalopram oxalate 20 mg tablet 40 mg PO HS Depression 09/24/23 10/03/23 History pregabalin 150 mg capsule 150 mg PO BID Pain 09/24/23 10/03/23 History isosorbide mononitrate 30 mg 30 mg PO DAILY 30 days #30 tabs 09/29/23 10/03/23 Rx tablet,extended release 24 hr nicotine 21 mg/24 hr daily 21 mg transdermal DAILYP PRN 09/29/23 10/03/23 Rx transdermal patch Nicotine Cravings 28 days #28 ea sacubitril 24 mg-valsartan 26 mg 1 tab PO BID 30 days #60 tabs 10/03/23 10/03/23 Rx tablet (Entresto) New Prescriptions to Start Prescriptions: isosorbide mononitrate Yosvany Gant nicotine Yosvany Gant Allergies Allergy/AdvReac Type Severity Reaction Status Date / Time moxifloxacin [From Avelox] Allergy Intermediate Rash Verified 10/03/23 10:41 ofloxacin Allergy Unknown Verified 10/03/23 10:41 allergy reaction Quinidine-Quinine Analogues Allergy Unknown Verified 10/03/23 10:41 (Cincho allergy reaction rofecoxib [From Vioxx] Allergy Unknown Verified 10/03/23 10:41 allergy reaction tramadol Allergy Unknown Verified 10/03/23 10:41 allergy reaction amoxicillin [From Amoxil] AdvReac Intermediate NAUSEA/VOMI Verified 10/03/23 10:41 TING Discharge Plan Disposition Patient Disposition: Home Health Service Condition: Fair Discharge Order Discharge Orders: Discharge Order (Routine); Ordered 09/29/23 Ordered By: Yosvany Gant Follow up Plan Follow up with: Keegan Green MD [Primary Care Provider] - 10/06/23 2:00 pm Margi Wilson MD [Physician] - 10/13/23 1:00 pm Ghulam Valladares MD [Staff Physician] - 10/13/23 2:00 pm Prescriptions/Medication Reconciliation: New isosorbide mononitrate 30 mg Tablet Extended Release 24 Hr 30 mg PO DAILY 30 Days Qty: 30 0RF nicotine 21 mg/24 hr Patch 24 Hour 21 mg transdermal DAILYP PRN (Reason: Nicotine Cravings) 28 Days Qty: 28 2RF Continued aspirin [Adult Low Dose Aspirin] 81 mg tablet,delayed release (DR/EC) 81 mg PO DAILY Dilaudid (PF) 1 mg/mL syringe 1 mg SQ .COMPLEX PRN (Reason: Pain) Rx Instructions: Pain pump fluticasone propionate [Flonase Allergy Relief] 50 mcg/actuation spray,suspension 1 spray intranasal DAILYP PRN (Reason: Allergies) Rx Instructions: Administer 1 spray into each nostril ondansetron 4 mg tablet,disintegrating 4 mg PO BID PRN (Reason: nausea and vomiting) 5 Days Qty: 10 2RF pramipexole 1 mg tablet 1 mg PO HS varenicline [Chantix Continuing Month Box] 1 mg tablet 1 mg PO BID Qty: 60 5RF cyanocobalamin (vitamin B-12) 1,000 mcg/mL solution 1,000 mcg IM MONTHLY Qty: 10 1RF spironolactone 25 mg tablet 25 mg PO DAILY Qty: 90 3RF empagliflozin 10 mg tablet 10 mg PO DAILY 30 Days Qty: 30 2RF (DME) Aerochamber MV Spacer See Rx Instructions .Route Qty: 10 1RF Rx Instructions: As directed promethazine 25 mg tablet 25 mg PO Q6H PRN (Reason: nausea and vomiting) Qty: 20 2RF fluticasone furoate-vilanterol [Breo Ellipta] 100-25 mcg/dose blister with device 1 inh inhalation DAILY ipratropium-albuterol 0.5 mg-3 mg(2.5 mg base)/3 mL solution for nebulization 3 ml INHALATION Q6HP PRN (Reason: Shortness Of Breath Or Wheezing) omeprazole 40 mg capsule,delayed release(DR/EC) 40 mg PO BID potassium chloride 20 mEq tablet,ER particles/crystals 40 meq PO PM albuterol sulfate 90 mcg/actuation HFA aerosol inhaler 2 puff INHALATION QIDP PRN (Reason: Shortness Of Breath Or Wheezing) Spiriva Respimat 2.5 mcg/actuation mist 2 puff INHALATION DAILY colestipol 1 gram tablet 1 g PO BID furosemide 40 mg tablet 40 mg PO BID 30 Days Qty: 60 0RF azithromycin 250 mg Tablet 250 mg PO MOWEFR atorvastatin 20 mg tablet 20 mg PO HS alprazolam 0.5 mg tablet 0.5 mg PO BIDP PRN (Reason: Anxiety) escitalopram oxalate 20 mg tablet 40 mg PO HS pregabalin 150 mg capsule 150 mg PO BID Discontinued varenicline [Chantix Starting Month Box] 0.5 mg (11)- 1 mg (42) tablets,dose pack See Rx Instructions PO PER PKG DIR Qty: 53 0RF Rx Instructions: take as directed No Action Entresto 24-26 mg tablet 1 tab PO BID 30 Days Qty: 60 0RF Problem Reconciliation Problems Reviewed?: Yes Patient Discharge Instructions ACTIVITY: Continue current activity DIET: continue same diet Patient Instructions: Heart-Healthy Diet, DI for Heart Failure, DI for Pneumonia -- Adult, DI for Chest Pain Providers Primary Care Provider: Keegan Green Admit Provider: Stacey Fregoso Attending Provider: Stacey Fregoso
[2023-09-29] MEDS: ALPRAZolam 0.5MG TABLET 0.5 MG PO (08:53)
[2023-09-29] MEDS: POTASSIUM CHLORIDE 20MEQ TAB 40 MEQ PO (08:53)
[2023-09-29] MEDS: predniSONE 20MG TAB 40 MG PO (08:53)
[2023-09-29] MEDS: ISOSORBIDE MONO 30MG TAB.ER.24H 30 MG PO (08:54)
[2023-09-29] MEDS: ACETAMINOPHEN 325MG TAB 650 MG PO (08:54)
[2023-09-29] MEDS: EMPAGLIFLOZIN 10 MG PO (08:55)
[2023-09-29] MEDS: ASPIRIN 81 MG PO (08:55)
[2023-09-29] MEDS: PAT OWN MED ***SPIRONOLACTONE 25MG 25 MG PO (08:55)
[2023-09-29] MEDS: OMEPRAZOLE 40 MG 1 EACH PO (08:55)
--- NOTE | 2023-09-29 09:43 | SW/DCPLANNER ---
Addendum entered by Frannie Veliz 09/29/23 14:23: Clare glover/ [facility] stated that services will begin tomorrow 09/30 for this patient. Original Note: I spoke w/ this patient regarding plans once medically stable for discharge. PT evaluated patient and recommended home health services at time of discharge. I spoke w/ patient and her this AM: they are agreeable to home health services and prefer to use [facility]. Patient information/order will be faxed to [facility] at time of discharge. Patient may discharge home this afternoon.
[2023-09-29 10:13] VITALS: PULSE 72; PULSE 74
--- NOTE | 2023-09-29 10:15 | P.PN_ITS ---
Subjective *Date: 09/29/23 *Time: 11:56 Interval history: No acute respiratory vents overnight. Patient denies significant improvement in her respiratory symptoms. Pulmonology Exam Inpatient Vital signs and Labs for Last 24 Hours: Temp Pulse Resp BP Pulse Ox O2 Del Method O2 Flow Rate 98.2 F 74 18 104/66 L 92 L Nasal Cannula 3 09/29/23 08:00 09/29/23 10:13 09/29/23 08:00 09/29/23 08:00 09/29/23 08:00 09/29/23 08:00 09/29/23 07:00 FiO2 40 09/28/23 23:58 Laboratory Results - last 24 hr 09/29/23 06:10: WBC 6.1 D, RBC 4.59, Hgb 9.6 L, Hct 34.4 L, MCV 74.9 L, MCH 20.9 L, MCHC 27.9 L, RDW 19.7 H, Plt Count 182 D, MPV 7.9, Neut % (Auto) 74.3, Lymph % (Auto) 16.1, [place] % (Auto) 9.5 H, Eos % (Auto) 0.1, Baso % (Auto) 0.1, Neut # (Auto) 4.6, Lymph # (Auto) 1.0, [place] # (Auto) 0.6, Eos # (Auto) 0.0, Baso # (Auto) 0.0, Sodium 136, Potassium 4.4, Chloride 101, Carbon Dioxide 35 H, Anion Gap 4.4 L, BUN 7, Creatinine 0.50 L, Estimated Creat Clear 88, Estimated GFR 125, Est GFR ( Amer) 151, Glucose 108 H, Calcium 9.0, Total Bilirubin 0.6, AST 21, ALT 64 D, Alkaline Phosphatase 66, Total Protein 5.6 L, Albumin 2.9 L, Globulin 2.7, Albumin/Globulin Ratio 1.1 I & O for Labs for Last 24 Hours: Intake & Output 09/26/23 09/27/23 09/28/23 09/29/23 23:59 23:59 23:59 23:59 Intake Total 1020 / 1020 710 / 710 1330 / 1690 720 / 720 Output Total 1050 / 1050 4200 / 4900 4150 / 5250 3100 / 3100 Balance -30 / -30 -3490 / -4190 -2820 / -3560 -2380 / -2380 Weight 212 lb 0.015 oz 211 lb 8 oz 207 lb 12.8 oz 210 lb 4.8 oz Microbiology Reports for the Last 24 Hours: Microbiology 09/26/23 11:36 Blood Blood Culture - Preliminary 09/26/23 11:48 Blood Blood Culture - Preliminary Constitutional: Present moderate distress Head: Present normocephalic and atraumatic ENT: Present normal exam, normal oropharynx and mucous membranes moist Neck: Present normal inspection and full ROM Respiratory: Present respiratory distress, rhonchi and able to speak in complete sentences; Absent prolonged expiratory phase or wheezes Cardiac: Present S1/S2, Tachycardia and radial pulses present GI: Present soft and distention; Absent tenderness or guarding Rectal (female): Present deferred (female): Present deferred Skin: Present intact; Absent cyanosis or jaundice Neuro: Present alert and awake; Absent oriented x 3 Extremities: Present normal inspection; Absent clubbing or cyanosis Psychiatric: Present normal affect and cooperative Assessment and Plan *Assessment and plan (1) Acute and chronic respiratory failure with hypoxia: Status: Acute Category: Medical Code(s): J96.21 - Acute and chronic respiratory failure with hypoxia (2) Pneumonia: Status: Acute Qualifiers: Laterality: unspecified laterality Lung location: unspecified part of lung Pneumonia type: due to unspecified organism Qualified Code(s): J18.9 - Pneumonia, unspecified organism Category: Medical Code(s): J18.9 - Pneumonia, unspecified organism Plan Ms. Shaw is a 63-year-old female greater than [id number] smoking history, severe COPD, lung nodules on triple inhaler therapy advised on 1-2 L nasal cannula oxygen supplementation presented to the ER complaining of worsening respiratory distress pulmonary was called for further evaluation and management. Patient other significant comorbidities include diastolic heart failure. Left heart cath August 2023 normal coronary angiograms. On Lasix as needed at baseline. Chest x-ray on admission vascular congestion, bilateral pleural effusions concerning lower lobe atelectasis/pneumonia. No evidence of leukocytosis upon admission. Afebrile. Hemodynamically stable. troponin elevated at 1.30. On initial examination mild expiratory wheezing. Moderate respiratory distress. Significant hypoxia saturating 87 to 90% Ventimask at 60%. CT A eviewed and no evidence of pulmonary embolism. No effusions noted. No airspace disease/consolidative changes noted. Echo Doppler difficult study, nonconclusive significant pulmonary hypertension and previous echocardiograms from July 2023 Interval update: No acute respiratory vents overnight. Remained stable on nasal cannula. BiPAP nightly for her severe sleep apnea. Significant improvement in her respiratory status. On home nasal cannula oxygen supplementation but no significant wheezing on auscultation. Plan: Patient can be discharged home on home inhaler therapy which include Breo 200 along with Spiriva inhaler. -Continue to be compliant with home noninvasive ventilator therapy for her severe sleep apnea. Continue nasal oxygen supplementation to maintain O2 saturation goal of 90% and above. -DuoNebs every 4 and Pulmicort Pulmicort every 12 scheduled -Continue levofloxacin for a total of 5 days. Hold azithromycin Tuesday Until completion of levofloxacin and then resume -Prednisone 40 mg daily x 5 days Thank you for involving pulmonary in this patient care. Will follow the patient in pulmonary clinic in 5 to 7 days post discharge
[2023-09-29] MEDS: levoFLOXacin 750 MG TABLET PO (11:17)
--- NOTE | 2023-09-29 13:09 | EXP.CARD.PN ---
Subjective Subjective Date: 09/29/23 Time: 09:00 Principal diagnosis: pulmonary htn Interval history: This is a 63-year-old female who presented to the hospital with complaints of shortness of breath. The patient has been treated for her HFpEF, severe right ventricular failure and underlying lung disease. This morning she states that she is feeling much better. She did sleep last night and got about 6-7 very good hours of sleep. This morning she denies any chest pressure or pain. She states that her shortness of breath has significantly improved. She is on nasal cannula this morning at 3 L/min. She denies any lower extremity edema. She denies any fever, chills, nausea, vomiting, diarrhea, PND or orthopnea. She states that she feels very clearheaded this morning and knows she was really confused yesterday. She is very eager to go home today. Exam Data for Last 24 hours Vital signs and Labs for Last 24 Hours: Temp Pulse Resp BP Pulse Ox O2 Del Method O2 Flow Rate 98.2 F 74 18 104/66 L 92 L Nasal Cannula 3 09/29/23 08:00 09/29/23 10:13 09/29/23 08:00 09/29/23 08:00 09/29/23 08:00 09/29/23 08:00 09/29/23 10:00 FiO2 40 09/28/23 23:58 Laboratory Results - last 24 hr 09/29/23 06:10: WBC 6.1 D, RBC 4.59, Hgb 9.6 L, Hct 34.4 L, MCV 74.9 L, MCH 20.9 L, MCHC 27.9 L, RDW 19.7 H, Plt Count 182 D, MPV 7.9, Neut % (Auto) 74.3, Lymph % (Auto) 16.1, [place] % (Auto) 9.5 H, Eos % (Auto) 0.1, Baso % (Auto) 0.1, Neut # (Auto) 4.6, Lymph # (Auto) 1.0, [place] # (Auto) 0.6, Eos # (Auto) 0.0, Baso # (Auto) 0.0, Sodium 136, Potassium 4.4, Chloride 101, Carbon Dioxide 35 H, Anion Gap 4.4 L, BUN 7, Creatinine 0.50 L, Estimated Creat Clear 88, Estimated GFR 125, Est GFR ( Amer) 151, Glucose 108 H, Calcium 9.0, Total Bilirubin 0.6, AST 21, ALT 64 D, Alkaline Phosphatase 66, Total Protein 5.6 L, Albumin 2.9 L, Globulin 2.7, Albumin/Globulin Ratio 1.1 I & O for Last 24 hours: Intake & Output 09/26/23 09/27/23 09/28/23 09/29/23 23:59 23:59 23:59 23:59 Intake Total 1020 / 1020 710 / 710 1330 / 1690 720 / 720 Output Total 1050 / 1050 4200 / 4900 4150 / 5250 3100 / 3100 Balance -30 / -30 -3490 / -4190 -2820 / -3560 -2380 / -2380 Weight 212 lb 0.015 oz 211 lb 8 oz 207 lb 12.8 oz 210 lb 4.8 oz Microbiology Reports for the Last 24 Hours: Microbiology 09/26/23 11:36 Blood Blood Culture - Preliminary 09/26/23 11:48 Blood Blood Culture - Preliminary Constitutional Constitutional: no acute distress and average body habitus *Routine HEENT Exam Head: Present normocephalic and atraumatic ENT: Present mucous membranes moist *Routine Neck Exam Neck: Present supple, full ROM and normal carotid upstroke; Absent JVD, carotid bruit or lymphadenopathy *Routine Respiratory Exam Respiratory: Present prolonged expiratory phase, rhonchi, wheezes, able to speak in complete sentences and symmetric chest movement *Routine Cardiovascular Exam Cardiovascular: Present RRR, Normal S1 and Normal S2; Absent murmur or gallop *Routine Abdominal Exam Abdominal: Present soft and normoactive bowel sounds; Absent tenderness, distended or organomegaly *Routine Extremities Exam Extremities: Present full ROM, pulses intact and normal capillary refill; Absent cyanosis, clubbing or edema *Routine Skin Exam Skin: Present intact and warm; Absent erythema *Routine Neurological Exam Neurological: Present alert, oriented X3 and CN II-XII intact; Absent sensory deficit or motor deficit Routine Psychiatric Exam Psychiatric: Present normal affect and anxious Progress Note: A&P Assessment and plan (1) Acute and chronic respiratory failure with hypoxia: Status: Acute (2) Pneumonia: Status: Acute (3) Elevated troponin: Status: Acute (4) Right ventricular failure: Status: Acute (5) Pulmonary hypertension: Status: Acute (6) Transaminitis: Status: Acute (7) Tobacco abuse: Status: Acute (8) (HFpEF) heart failure with preserved ejection fraction: Status: Chronic (9) HTN (hypertension): Status: Chronic (10) HLD (hyperlipidemia): Status: Chronic Assessment and Plan Assessment and Plan for All Diagnoses:: Plan: 1. The patient was transferred here from [facility] due to an elevated troponin and shortness of breath. This is most likely a type II OK from her underlying pulmonary disease. The patient had recent cardiac catheterization August 30, 2023 which showed normal coronary arteries. No plans for repeat left cardiac catheterization at this time. 2. Limited echocardiogram shows her ejection fraction is 55%. There is increased LV wall thickness. There is septal flattening consistent with RV pressure/volume overload. She continues to have moderately to severely dilated right ventricle and moderate reduction in RV systolic function. The patient does have severe right ventricular failure which is most likely stemming from her underlying pulmonary lung disease and pulmonary hypertension. She has been started on isosorbide mononitrate for pulmonary hypertension. Pulmonology is following. 3. The patient has a history of normal coronary arteries. 4. Her blood pressure is well-controlled. 5. Her LDL goal is less than 100. Her liver enzymes have normalized. She can restart statin at discharge. 6. The patient does have HFpEF. Continue Jardiance, spironolactone and Lasix. No beta-linda at this time as it has been shown that beta-blockers do cause worsening symptoms in patients with HFpEF. 7. No further recommendations at this time from a cardiac standpoint. The patient can be discharged home today from a cardiac standpoint. She will need to follow-up in cardiology clinic in 1 to 2 weeks on an outpatient basis. Thank you for the opportunity to help participate in the care of this patient. All recommendations and orders are per Dr. Valladares.
[2023-09-30 10:42] LABS: HBsAg Screen Negative; Hep A Ab, IGM Negative
[2023-09-30 10:43] LABS: HCV Ab Non Reactive; Hep B Core Ab, IgM Negative
--- NOTE | 2023-10-03 14:05 | CARE MANAGER ---
Attempted to contact patient related to hospital discharge x 2. Left VM. CINDY Michaud
== END 2023-09-29 12:44 | disposition home health service (06) | DRG 280 ==
PROVIDERS: Internal Medicine; Internal Medicine Adolescent Medicine; Nurse Practitioner Critical Care Medicine; Nurse Practitioner Family; Admitting Provider Internal Medicine; PCP Family Medicine; Visit Provider Internal Medicine
DX: I21.4 Non-ST elevation (NSTEMI) myocardial infarction (principal); I50.33 Acute on chronic diastolic (congestive) heart failure; J18.9 Pneumonia, unspecified organism; J96.21 Acute and chronic respiratory failure with hypoxia; I11.0 Hypertensive heart disease with heart failure; E78.5 Hyperlipidemia, unspecified; J44.9 Chronic obstructive pulmonary disease, unspecified; E66.9 Obesity, unspecified; Z68.29 Body mass index [BMI] 29.0-29.9, adult; F17.210 Nicotine dependence, cigarettes, uncomplicated; I25.10 Atherosclerotic heart disease of native coronary artery without angina pectoris; K21.9 Gastro-esophageal reflux disease without esophagitis; I27.20 Pulmonary hypertension, unspecified
CPT/HCPCS: G0379; 36415; 71045; 71275; 80048; 80053; 80061; 80074; 80329; 82550; 83735; 83880; 84484; 85007; 85025; 85730; 87040; 87070; 87205; 93005; 93306; 93308; 94640; 94660; 94761; 97163; 97530; J1956; J2405; Q9967

== ENCOUNTER → 2023-10-06 09:59 | Outpatient (POV) | payer MEDICARE, MEDICAID, SELFPAY ==
--- NOTE | 2023-10-06 10:28 | A.OFFVIS_ITS ---
[facility] Pain Management SOAP Note Subjective:: Patient is a pleasant 63-year-old female who presents today for follow-up. We are currently treating the patient for degenerative disc disease of cervical and lumbar spine with cervical and lumbar radiculopathy symptoms, right knee pain. Today she rates her pain a 10 out of 10. Patient states she continues to have severe pain in and around her neck radiating to her bilateral shoulders. She does describe this as an aching, throbbing sensation with some numbness and tingling. Patient does state the pain interferes with her ability perform activities of daily living such as cooking and cleaning. She states that nothing seems to help improve her symptoms. She does use pillows to help with adjusting and positioning. Patient is interested in proceeding forward with an injection. Patient does also states she continues to have issues with her right knee and states that it hurts with ambulation and will give out on her. On her last visit we did order CT imaging however she states she has not had this completed yet. Patient is currently managed with pregabalin 150 mg twice a day and alprazolam 0.5 mg twice a day from her primary care provider. Patient is on Dilaudid 1 mg/mL with a daily dose of 0.273 mg/day in her intrathecal pump. She denies any side effects from this medication. Her Je has been reviewed and is appropriate. Review of Systems: General: No recent weight changes, no fever, no sleep disturbances Respiratory: No cough, no shortness of air, no recurring pulmonary infections Cardiovascular/peripheral vascular: No chest pain, no palpitations, no edema, no shortness of breath Gastrointestinal: No new onset incontinence, normal bowel movements reported Genitourinary: No new onset incontinence Musculoskeletal: Neck pain, bilateral shoulder pain Psychiatric: [Normal mood/affect] Neurological: [Denies weakness in extremities], [denies balance issues] Objective:: Physical Exam: General: Alert and oriented x3, no acute distress, pleasant and cooperative Lungs: Respirations even and unlabored, symmetrical chest expansion Eyes: PERRL Musculoskeletal: Flexion and extension of cervical [spine] somewhat guarded secondary to pain, [antalgic gait noted] positive straight leg test Neurological: Speech clear, no gross sensory deficit FINAL REPORT TECHNIQUE: Axial images were obtained of the cervical spine by computed tomography. Coronal and sagittal reconstruction process performed. This study was performed with techniques to keep radiation doses as low as reasonably achievable (ALARA). Individualized dose reduction techniques using automated exposure control or adjustment of mA and/or kV according to the patient''s size were employed. CLINICAL HISTORY: NECK PAIN COMPARISON: None FINDINGS: There is abnormal loss of height at C5-6 and C6-7. There is minimal spondylolisthesis of C5 on C6. Facets are properly aligned. Limited images of the lung apices demonstrate advanced changes of centrilobular emphysema with biapical pleural-parenchymal scarring. IMPRESSION: Chronic changes in the cervical spine without acute bony abnormality. Reviewed, Interpreted and Dictated by Sumeet Floyd MD Transcribed by Joslyn Ortiz Authenticated and [facility] Assessment:: Degenerative disc disease of cervical and lumbar spine with cervical and lumbar radiculopathy symptoms, right knee pain Plan:: I have discussed with the patient that she may benefit from a cervical epidural steroid injection. Risk and benefits were discussed with patient and she would like to proceed forward with this plan of care. Patient is not on any blood thinners. I have also discussed with patient in future we will contact her once we have official insurance approval for her CT imaging of her right knee. Patient will be scheduled for a CARTER C6-C7 under fluoroscopy. We will see the patient back in the clinic at the next intrathecal refill. Patient has been instructed to contact the clinic with any concerns before the next appointment. Dr. Shields has reviewed this note and agrees with this plan of care. This note was dictated using voice recognition software and make contain errors or omissions. -- It Is medically necessary for this patient to continue to have their intrathecal pump refilled at regular intervals. This patient had an intrathecal pain pump implanted after meeting criteria of chronic intractable pain for greater than 3 months and failing conservative treatments. Patient has committed and been compliant to the treatment plan and all planned follow up care. Since implantation of the intrathecal pain pump, the patient has had decreased pain and been more functional. Oral medications have been reduced including intake of oral opioids. Patient continues to do well with intrathecal therapy with decrease in pain symptoms and increase in functional status. Stopping intrathecal medications can lead to life threatening withdrawal, seizures, cardiac arrest, severe pain, and possible . Pumps that are not refilled at regular intervals can be damages and cause and need for replacement. We c ontinually titrate dose and concentration to optimize pain relief and function. We are limited in concentration for certain drugs to safely deliver medications through the pump and stay within the recommendations from the Polyanalgesic Consensus Committee Guidelines. Depending on dose and concentration these pumps may need to be refilled sooner than 3 months as we titrate. [facility] Disclaimer: The information contained in this section may have been updated after the patient was seen, as this information can be updated by other users. Medical History Abnormal cardiovascular stress test Acute and chronic respiratory failure with hypoxia Allergic rhinitis Allergic rhinitis, unspecified Allergic rhinitis, unspecified Anxiety Anxiety Asthma Atypical angina Bilateral leg pain Bilateral leg pain Bilateral low back pain with sciatica CAD (coronary artery disease) Cataract CHF (congestive heart failure) Chronic bronchitis Chronic bronchitis Congestive heart failure COPD (chronic obstructive pulmonary disease) COPD (chronic obstructive pulmonary disease) COPD (chronic obstructive pulmonary disease) COPD mixed type O2 2-3lpm x 24 hours. 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 Lung nodule Lung nodule Neuropathy Obesity (BMI 30-39.9) Osteoarthritis Pneumonia Pneumonia Pulmonary fibrosis Pulmonary fibrosis, unspecified Pulmonary hypertension Pulmonary hypertension Rectal prolapse Right ventricular failure Screening for lung cancer Shortness of Breath Sore throat Stenosis of carotid artery TMJ dysfunction Tobacco abuse Tobacco abuse counseling Tobacco abuse counseling Tobacco abuse counseling Tobacco abuse counseling Tobacco abuse disorder Tobacco dependence syndrome Unspecified asthma, uncomplicated Surgical History History of arthroscopy of knee History of bladder suspension procedure History of cardiac cath History of section History of colonoscopy History of hemorrhoidectomy History of hysterectomy History of sinus surgery History of spinal surgery Family History Mother Hypertension Family history of acute congestive heart failure Father No problems noted. 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
[2023-10-06 10:56] VITALS: BP 127/55; PULSE 82; RESP 18; O2SAT 97; BMI 28.3
== END ==
PROVIDERS: PCP Family Medicine; Visit Provider Nurse Practitioner Family
DX: M50.123 Cervical disc disorder at C6-C7 level with radiculopathy (principal); M51.16 Intervertebral disc disorders with radiculopathy, lumbar region; M25.561 Pain in right knee; Z97.8 Presence of other specified devices
CPT/HCPCS: 99212; G0463

== ENCOUNTER 2023-10-25 09:22 | Day surgery (SDC) | payer MEDICARE, MEDICAID, SELFPAY ==
[2023-10-25 10:00] VITALS: BP 96/53; PULSE 80; RESP 16; TEMP 36.3; O2SAT 91; BMI 28.3
--- NOTE | 2023-10-25 10:31 | CT_ITS ---
FINAL REPORT TECHNIQUE: Thin section axial CT images with coronal and sagittal reformats were performed. 3D images were obtained and reviewed. This study was performed with techniques to keep radiation doses as low as reasonably achievable (ALARA). Individualized dose reduction techniques using automated exposure control or adjustment of mA and/or kV according to the patient''s size were employed. CLINICAL HISTORY: RT KNEE PAIN COMPARISON: None FINDINGS: There is a chronic fracture of the lateral tibial plateau with deformity and chronic fracture of the proximal fibular diaphysis with which are stable. There is no acute fracture. There is moderate to severe degenerative change of the knee, worst in the lateral compartment. There is a moderate joint effusion. IMPRESSION: Stable chronic changes with no acute bony abnormality. Reviewed, Interpreted and Dictated by Brendan Multani III, MD Transcribed by Joslyn Ortiz Authenticated and [facility]
[2023-10-25 10:40] VITALS: BP 131/50; PULSE 80; RESP 18; O2SAT 92
--- NOTE | 2023-10-25 10:42 | P.PCN_ITS ---
Procedure Date: 10/25/23 Time: 10:20 Anesthesiologist:: Roberto Miller CRNA Complications:: None Pre-procedure Diagnosis:: Degenerative disc cervical spine multilevels. Cervical radiculopathy. Post-procedure Diagnosis:: Same. Indications for Procedure:: Patient is a very pleasant 63-year-old female comes to clinic today for cervical epidural steroid injection. Patient has cervical neck pain she describes as constant, dull, aching. Patient also complained of bilateral arm radicular sym ptoms. She rates her pain 7/10. Procedure Details:: Procedure:Cervical epidural steroid injection Informed consent was obtained and the risks and benefits of the procedure were explained to the patient. The patient was taken to the procedure room and noninvasive monitors placed, including noninvasive blood pressure cuff and pulse oximeter. The neck was prepped using Chloraprep as a cleansing solution. The C6- C7 interspace was viewed using fluroscopy. The skin and subcutaneous tissues were anesthetized using lidocaine 1.5% and a 25-gauge needle. After this an 18- gauge Touhy epidural needle was placed into the C6-C7 interspace under fluroscopy guidance and advanced using loss of resistance to air until the epidural space was encountered. After confirmation of needle placement in the epidural space using contrast dye, a solution containing normal saline, 2 mL and Depo-Medrol 80 mg was incrementally injected into the cervical epidural space.~ The patient tolerated the procedure well with no complications. The patient was observed in the Pain Clinic and then discharged home neurologically intact. Plan and Disposition:: Patient was discharged without incident.
[2023-10-25] MEDS: methylPREDNISolone ACETATE 80MG/ML VIAL 80 MG (13:18)
== END 2023-10-25 10:40 | disposition home or self-care (01) ==
PROVIDERS: PCP Family Medicine; Visit Provider Nurse Anesthetist, Certified Registered
DX: M50.123 Cervical disc disorder at C6-C7 level with radiculopathy (principal)
CPT/HCPCS: 62321; 73700; J1040

== ENCOUNTER 2023-11-09 08:46 | Outpatient (POV) | payer MEDICARE, MEDICAID, SELFPAY ==
[2023-11-09 08:58] VITALS: BP 89/43; PULSE 100; RESP 18; TEMP 36.7; O2SAT 96; BMI 29.4
--- NOTE | 2023-11-09 09:57 | P.PCN_ITS ---
Procedure Date: 11/09/23 Time: 09:41 Anesthesiologist:: Georgiana Zelaya APRN Complications:: None Pre-procedure Diagnosis:: Degenerative disc disease of cervical and lumbar spine with cervical and lumbar radiculopathy symptoms, right knee pain Post-procedure Diagnosis:: Same Indications for Procedure:: Patient is a pleasant 63-year-old female who presents today for follow-up of CT of her right knee and adjustment and reprogram of her pump. Today she rates her pain a 10 out of 10. She states that she is continuing to experience significant pain in and around her neck and back and right knee. Patient did also have a cervical epidural of C6-C7 on 10/25/2023. She states that this did pr ovide improvement of her neck symptoms for 3 days at about 30% or more and that her shoulders are still having improvement and rating it currently at a 40% improvement. Patient has been using lidocaine patches for additional help and is asking if we can send a prescription for this. Patient does also mention that she continues to have pain in and around her back and feels like there is a knot in 1 spot. Patient states her continued knee pain is another issue. Patient is currently managed with pregabalin and alprazolam from her primary care doctor. She does have her intrathecal pump of Dilaudid 1 mg/mL with a daily dose of 0.273 mg/day. She denies any side effects from this medication. Her Je has been reviewed and is appropriate. Physical Exam: General: Alert and oriented x3, no acute distress, pleasant and cooperative Lungs: Respirations even and unlabored, symmetrical chest expansion Eyes: PERRL Musculoskeletal: Flexion and extension of lumbar spine, right knee somewhat gu arded secondary to pain, [antalgic gait noted] Neurological: Speech clear, no gross sensory deficit Procedure Details:: Informed consent was obtained and the risk and benefits of the procedure were explained to the patient. Patient was taken to the procedure room where noninvasive monitoring was placed including noninvasive blood pressure cuff and pulse oximeter. Patient's pump was interrogated and was reprogrammed to Dilaudid 0.286 mg/day. The patient tolerated the procedure well with no complications. Plan and Disposition:: Patient tolerated her intrathecal increase with no complications and was discharged neurologically intact. 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 Patient did have moderate to severe degenerative changes in the knee and moderate effusion. I have discussed with the patient due to her findings and continued pain that she may benefit from an intra- articular knee injection. Risk and benefits were discussed with the patient and she would like to proceed forward with this plan of care. I have also discussed with the patient in future we may be able to do nerve block to see about helping with the pain related to the chronic fractures. We will follow-up with this at future visits. We will order the patient lidocaine patches and provide a 3- month supply of these medications. Patient will be scheduled for a right intra- articular knee injection. Patient's knot that was located on her back does appear to be the anchor of her catheter. I have discussed this with the patient and she has lost weight which could account for why it is more prominent now. Patient acknowledges understanding. We will continue to monitor this. Patient has been instructed to contact the clinic with any concerns before the next appointment. Dr. Shields has reviewed this note and agrees with this plan of care. This note was dictated using voice recognition software and make contain errors or omissions. -- It Is medically necessary for this patient to continue to have their intrathecal pump refilled at regular intervals. This patient had an intrathecal pain pump implanted after meeting criteria of chronic intractable pain for greater than 3 months and failing conservative treatments. Patient has committed and been compliant to the treatment plan and all planned follow up care. Since implantation of the intrathecal pain pump, the patient has had decreased pain and been more functional. Oral medications have been reduced including intake of oral opioids. Patient continues to do well with intrathecal therapy with decrease in pain symptoms and increase in functional status. Stopping intrathecal medications can lead to life threatening withdrawal, seizures, cardiac arrest, severe pain, and possible . Pumps that are not refilled at regular intervals can be damages and cause and need for replacement. We continually titrate dose and concentration to optimize pain relief and function. We are limited in concentration for certain drugs to safely deliver medications through the pump and stay within the recommendations from the [employer] Consensus [employer] Guidelines. Depending on dose and concentration these pumps may need to be refilled sooner than 3 months as we titrate.
[2023-11-09 12:45] LABS: Chloride 90 mmol/L (98-107); Potassium 4.6 mmoL/L (3.5-5.1); Sodium 124 mmol/L (136-145)
[2023-11-09 12:47] LABS: Alanine Aminotransferase 18 U/L (12-78); Alkaline Phosphatase 106 U/L (38-126); Aspartate Amino Transferase 34 U/L (14-36); Bilirubin,Direct 0.3 mg/dl (0.0-0.4); Bilirubin,Indirect 0.3 mg/dL (0.0-0.9); Bilirubin,Total 0.6 mg/dl (0.2-1.3); Bilirubin,Unconjugated 0.2 mg/dL (0.0-1.1); Blood Urea Nitrogen 17 mg/dl (7-17); Creatinine Clearance Estimated 88 mL/min (50-200); Estimated Glomerular Filt Rate 63 ml/min (>60); GFR (African American) 77 ML/MIN (>60)
[2023-11-09 12:48] LABS: Albumin Level 3.2 g/dl (3.5-5.0); Anion Gap 8.6 mEq/L (5-15); Calcium 8.3 mg/dl (8.4-10.2); Carbon Dioxide 30 mmol/L (22.0-30.0); Glucose 98 mg/dl (74-100); Total Protein,Serum 5.9 g/dl (6.3-8.2)
== END 2023-11-09 23:59 | disposition home or self-care (01) ==
PROVIDERS: PCP Family Medicine; Visit Provider Nurse Practitioner
DX: I50.32 Chronic diastolic (congestive) heart failure (principal); R74.8 Abnormal levels of other serum enzymes; M50.123 Cervical disc disorder at C6-C7 level with radiculopathy; M51.16 Intervertebral disc disorders with radiculopathy, lumbar region; M25.561 Pain in right knee; Z97.8 Presence of other specified devices; Z45.1 Encounter for adjustment and management of infusion pump
CPT/HCPCS: 36415; 62368; 80048; 80076; 99212; G0463

== ENCOUNTER 2023-11-11 14:01 | Emergency (ER) | payer MEDICARE, MEDICAID, SELFPAY ==
[2023-11-11] VITALS (8 sets, daily range): BP systolic 90–125; BP diastolic 41–56; PULSE 80–91; RESP 18–20; TEMP 36.7–36.8; O2SAT 88–96; BMI 29.4
--- NOTE | 2023-11-11 14:23 | XR_ITS ---
FINAL REPORT CLINICAL HISTORY: dyspnea COMPARISON: 09/24/2023 FINDINGS: A single portable view of the chest was obtained. There is cardiomegaly. There is mild pulmonary vascular congestion. Right base opacities likely represent atelectasis or pneumonia. There is no pneumothorax. The bony thorax is intact. IMPRESSION: Cardiomegaly and pulmonary vascular congestion. Right base opacities likely represent atelectasis or pneumonia. Reviewed, Interpreted and Dictated by Brendan Multani III, MD Transcribed by Mandy Villatoro Authenticated and . [facility]
--- NOTE | 2023-11-11 14:23 | CT_ITS ---
FINAL REPORT CLINICAL HISTORY: diffuse abd pain x 3 days COMPARISON: 10/26/2022 FINDINGS: CT OF THE ABDOMEN AND PELVIS WITH CONTRAST Axial CT images of the abdomen and pelvis were obtained after the administration of oral and iv contrast. Coronal reformatted images were also obtained and reviewed.This study was performed with techniques to keep radiation doses as low as reasonably achievable (ALARA). Individualized dose reduction techniques using automated exposure control or adjustment of mA and/or kV according to the patient's size were employed. Abdomen: There is moderate emphysema with scarring in the lung bases. There is a nodule in the right lung base measuring 18 mm. The liver has an unremarkable appearance, without evidence of mass or biliary ductal dilatation. There is gallbladder wall thickening without evidence of stones. The spleen is unremarkable. No adrenal mass is present. The pancreas has an unremarkable appearance. The kidneys are normal, without evidence of hydronephrosis. A small left renal cyst is seen. The aorta is normal in caliber. There are moderate vascular calcifications. There is no free fluid or adenopathy. No mass or abnormal fluid collection is seen. Pelvis: The appendix is not well-visualized. The patient is status post hysterectomy. The urinary bladder is unremarkable.The GI tract demonstrates no obstruction. There is sigmoid diverticulosis with no evidence of diverticulitis. There is no evidence of mass or adenopathy. IMPRESSION: Gallbladder wall thickening, nonspecific. Cholecystitis is not excluded. Consider follow-up ultrasound or hepatobiliary scan for further evaluation. Reviewed, Interpreted and Dictated by Brendan Multani III, MD Transcribed by Mandy Villatoro Authenticated and [facility]
--- NOTE | 2023-11-11 14:26 | [facility].EDGENADL ---
Discharge Plan Disposition Patient Disposition: Xfer Short-Term Hosp Prescriptions Prescriptions: No Action aspirin [Adult Low Dose Aspirin] 81 mg tablet,delayed release (DR/EC) 81 mg PO DAILY Dilaudid (PF) 1 mg/mL syringe 1 mg SQ .COMPLEX PRN (Reason: Pain) Rx Instructions: Pain pump fluticasone propionate [Flonase Allergy Relief] 50 mcg/actuation spray,suspension 1 spray intranasal DAILYP PRN (Reason: Allergies) Rx Instructions: Administer 1 spray into each nostril clotrimazole 10 mg glory 10 mg PO 5XDAY Patient Comments: DISSOLVE 1 TABLET IN MOUTH FIVE TIMES DAILY FOR 14 DAYS doxycycline hyclate 100 mg capsule 100 mg PO BID 10 Days Qty: 20 0RF fluconazole 150 mg tablet 150 mg PO Q3D 0 Days Qty: 2 0RF Rx Instructions: may repeat second dose 72 hrs after first dose if symptoms persist cyanocobalamin (vitamin B-12) 1,000 mcg/mL solution 1,000 mcg IM MONTHLY Qty: 10 1RF empagliflozin 10 mg tablet 10 mg PO DAILY 30 Days Qty: 30 2RF (DME) Aerochamber MV Spacer See Rx Instructions .Route Qty: 10 1RF Rx Instructions: As directed promethazine 25 mg tablet 25 mg PO Q6H PRN (Reason: nausea and vomiting) Qty: 20 2RF pregabalin 150 mg capsule 150 mg PO HS Qty: 30 3RF spironolactone 25 mg tablet 25 mg PO DAILY Qty: 90 3RF escitalopram oxalate 20 mg tablet 40 mg PO HS Qty: 90 0RF atorvastatin 20 mg tablet 20 mg PO HS Qty: 90 0RF potassium chloride 20 mEq tablet,ER particles/crystals 40 meq PO PM Qty: 180 0RF isosorbide mononitrate 30 mg tablet extended release 24 hr 30 mg PO DAILY Qty: 90 0RF Entresto 24-26 mg tablet 1 tab PO BID 30 Days Qty: 60 0RF pramipexole 1 mg tablet 1 mg PO HS Qty: 90 0RF furosemide 40 mg tablet 40 mg PO BID 30 Days Qty: 60 2RF fluticasone furoate-vilanterol [Breo Ellipta] 100-25 mcg/dose blister with device 1 inh inhalation DAILY ipratropium-albuterol 0.5 mg-3 mg(2.5 mg base)/3 mL solution for nebulization 3 ml INHALATION Q6HP PRN (Reason: Shortness Of Breath Or Wheezing) omeprazole 40 mg capsule,delayed release(DR/EC) 40 mg PO BID albuterol sulfate 90 mcg/actuation HFA aerosol inhaler 2 puff INHALATION QIDP PRN (Reason: Shortness Of Breath Or Wheezing) Spiriva Respimat 2.5 mcg/actuation mist 2 puff INHALATION DAILY alprazolam 0.5 mg tablet 0.5 mg PO BIDP PRN (Reason: Anxiety) azithromycin 250 mg Tablet See Rx Instructions .ROUTE .COMPLEX Rx Instructions: 250 mg orally ;start on day 2 of therapy, patient take this medication every M W 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 colestipol 1 gram tablet 1 g PO BID PRN (Reason: Diarrhea) lidocaine 5 % adhesive patch,medicated 1 patch topical DAILY Qty: 30 3RF Rx Instructions: leave on most painful area for up to 12 hrs Referrals Follow up/Referrals: Keegan Green MD [Primary Care Provider] - See instructions Clinical Impressions Clinical Impression: Acalculous cholecystitis, Acute hyponatremia, Pulmonary arterial hypertension, Acute non-ST elevation myocardial infarction (NSTEMI) Discharge ED Provider: Boo Moya General Adult HPI <Boo Moya MD - Last Filed: 11/11/23 14:33> General Chief complaint: Weakness Stated complaint: leg pain, abd pain, SOA Time Seen by Provider: 11/11/23 14:14 History of Present Illness HPI narrative: Patient is a 63-year-old female present today with multiple complaints. She is a very poor historian and came in with numerous different complaints which initially included lower extremity discomfort nausea dizziness pain all over etc. After extensive discussion it seems as if she is here primarily for nausea lightheadedness and abdominal pain that began 3 days ago. She states that her lower extremity discomfort was described as an attempt to try to walk but felt very off balance and she simply had generalized weakness which was confirmed with her who is in the room. Patient denies any coffee-ground emesis melena or hematochezia she denies any fevers chills urinary symptoms cough etc. When asked what can of past medical problems she has she states normal. From a chart review standpoint she has a history of coronary disease and NSTEMI COPD heart failure reduced ejection fraction hypertension hyperlipidemia and chronic bronchitis. She denies any new or different pulmonary symptoms today. When asked what is different from her baseline from her he states its mainly her energy level and states that her color looks different. Related Data Home Medications Medication Instructions Recorded Confirmed aspirin 81 mg tablet,delayed 81 mg PO DAILY 08/09/22 11/11/23 release (Adult Low Dose Aspirin) hydromorphone (PF) 1 mg/mL 1 mg SQ .COMPLEX PRN Pain 12/08/22 11/11/23 injection syringe (Dilaudid (PF)) fluticasone propionate 50 1 spray intranasal DAILYP PRN 04/04/23 11/11/23 mcg/actuation nasal Allergies spray,suspension (Flonase Allergy Relief) fluticasone furoate 100 1 inh inhalation DAILY 05/24/23 11/11/23 mcg-vilanterol 25 mcg/dose inhalation powder (Breo Ellipta) albuterol sulfate 90 mcg/actuation 2 puff inhalation QIDP PRN 08/30/23 11/11/23 aerosol inhaler Shortness Of Breath Or Wheezing ipratropium 0.5 mg-albuterol 3 mg 3 ml inhalation Q6HP PRN Shortness 08/30/23 11/11/23 (2.5 mg base)/3 mL nebulization Of Breath Or Wheezing soln omeprazole 40 mg capsule,delayed 40 mg PO BID 08/30/23 11/11/23 release tiotropium bromide 2.5 2 puff inhalation DAILY 08/30/23 11/11/23 mcg/actuation mist for inhalation (Spiriva Respimat) alprazolam 0.5 mg tablet 0.5 mg PO BIDP PRN Anxiety 09/24/23 11/11/23 clotrimazole 10 mg glory 10 mg PO 5XDAY 11/04/23 11/11/23 azithromycin 250 mg tablet See Rx Instructions .Route .COMPLEX 11/11/23 11/11/23 colestipol 1 gram tablet 1 g PO BID PRN Diarrhea 11/11/23 11/11/23 Previous Rx's Medication Instructions Recorded cyanocobalamin (vitamin B-12) 1,000 mcg IM MONTHLY Supplement 01/24/23 1,000 mcg/mL injection solution #10 mL empagliflozin 10 mg tablet 10 mg PO DAILY Heart failure 30 04/28/23 days #30 tabs inhalational spacing device #10 ea 12/21/23 (Aerochamber MV spacer) promethazine 25 mg tablet 25 mg PO Q6H PRN nausea and 09/20/23 vomiting #20 tabs pregabalin 150 mg capsule 150 mg PO HS Pain #30 caps 10/07/23 spironolactone 25 mg tablet 25 mg PO DAILY Fluid #90 tabs 10/07/23 atorvastatin 20 mg tablet 20 mg PO HS Cholesterol #90 tabs 10/20/23 escitalopram oxalate 20 mg tablet 40 mg (2 x 20 mg) PO HS Depression 10/20/23 #90 tabs potassium chloride 20 mEq 40 meq (2 x 20 mEq) PO PM #180 tabs 10/20/23 tablet,extended release(part/cryst) isosorbide mononitrate 30 mg 30 mg PO DAILY #90 tabs 10/26/23 tablet,extended release 24 hr furosemide 40 mg tablet 40 mg PO BID 30 days #60 tabs 11/01/23 pramipexole 1 mg tablet 1 mg PO HS #90 tabs 11/01/23 sacubitril 24 mg-valsartan 26 mg 1 tab PO BID 30 days #60 tabs 11/01/23 tablet (Entresto) doxycycline hyclate 100 mg capsule 100 mg PO BID 10 days #20 caps 11/04/23 fluconazole 150 mg tablet 150 mg PO Q3D 2 doses #2 tabs 11/04/23 lidocaine 5 % topical patch 1 patch topical DAILY #30 ea 11/09/23 Allergies Allergy/AdvReac Type Severity Reaction Status Date / Time moxifloxacin [From Avelox] Allergy Intermediate Rash Verified 11/09/23 09:41 ofloxacin Allergy Unknown Verified 11/09/23 09:41 allergy reaction Quinidine-Quinine Analogues Allergy Unknown Verified 11/09/23 09:41 (Cincho allergy reaction rofecoxib [From Vioxx] Allergy Unknown Verified 11/09/23 09:41 allergy reaction tramadol Allergy Unknown Verified 11/09/23 09:41 allergy reaction amoxicillin [From Amoxil] AdvReac Intermediate NAUSEA/VOMI Verified 11/09/23 09:41 TING [facility] <Boo Moya MD - Last Filed: 11/11/23 14:33> [facility] Disclaimer: The information contained in this section may have been updated after the patient was seen, as this information can be updated by other users. 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 Hypokalemia Sore throat Leg pain Cough Dyspnea on exertion Eosinophilia Allergic rhinitis, unspecified Tobacco abuse disorder Tobacco abuse counseling Encounter for screening for malignant neoplasm of lung in current smoker with 30 pack year history or greater Chronic bronchitis Pulmonary fibrosis Lung nodule Asthma COPD (chronic obstructive pulmonary disease) Eosinophilia Allergic rhinitis Tobacco abuse counseling Tobacco abuse Encounter for screening for malignant neoplasm of lung in current smoker with 30 pack year history or greater Chronic bronchitis Pulmonary fibrosis, unspecified Lung nodule Unspecified asthma, uncomplicated Allergic rhinitis, unspecified Tobacco abuse counseling Edema Bilateral leg pain CAD (coronary artery disease) Elevated left ventricular end-diastolic pressure (LVEDP) Tobacco dependence syndrome Fatigue Atypical angina Dyspnea Abnormal cardiovascular stress test Bilateral leg pain TMJ dysfunction Fibromyalgia Bilateral low back pain with sciatica Leg pain, bilateral Obesity (BMI 30-39.9) Hyperlipidemia Hypothyroidism GERD (gastroesophageal reflux disease) COPD (chronic obstructive pulmonary disease) Neuropathy Anxiety Hypertension Surgical History History of spinal surgery History of bladder suspension procedure History of sinus surgery History of hysterectomy History of hemorrhoidectomy History of section History of cardiac cath History of colonoscopy History of arthroscopy of knee Family History Mother Hypertension Family history of acute congestive heart failure Father No problems noted. Social History Smoking Status: Current every day smoker tobacco type: cigarettes packs per day: 1 years smoked: 40 second hand exposure: Yes alcohol intake: never substance use type: denies use current occupational status: disabled Travel in the last 8 weeks: None household members: spouse housing: house current occupational exposures/hazards: No caffeine: Yes bobby/congregational: [employer] <Boo Moya MD - Last Filed: 11/11/23 14:33> ROS Obtained: Yes All systems reviewed & no additional complaints except as documented Physical Exam <Boo Moya MD - Last Filed: 11/11/23 14:33> General General appearance: alert and in no apparent distress Respiratory Respiratory exam: Present other (No respiratory distress she is on 4 L nasal cannula which is her baseline oxygen supplementation at home with normal saturations) Cardiovascular Cardiovascular exam: Present regular rate and normal rhythm Abdominal Exam Abdominal exam: Present soft and tenderness (Is diffusely tender but primarily in the lower abdomen with some rebound and guarding) Extremities Exam Extremities exam: Present other (Diffuse bruising bilateral lower extremities which she states is at her baseline no soft tissue deformities 2+ PT and DP pulses) Neurological Exam Neurological exam: Present alert, oriented X3 and CN II-XII intact; Absent motor sensory deficit Medical Decision Making <Boo Moya MD - Last Filed: 11/11/23 14:33> Je Inquiry Pt receiving controlled substance: No Vital Signs: 11/11/23 14:02 11/11/23 14:13 11/11/23 15:15 Temperature 98.2 F Temperature Source Oral Pulse Rate 84 91 H Respiratory Rate 18 20 Blood Pressure 105/42 L 90/41 L Blood Pressure [Right Arm] 105/42 L Blood Pressure Mean 49 59 Blood Pressure Mean [Right Arm] 63 Blood Pressure Source [Right Arm] Automatic Cuff 02 Sat by Pulse Oximetry 95 95 93 L Oxygen Delivery Method Nasal Cannula Nasal Cannula Oxygen Flow Rate (LPM) 3 3 11/11/23 15:46 Temperature Temperature Source Pulse Rate 85 Respiratory Rate 20 Blood Pressure 102/56 L Blood Pressure [Right Arm] Blood Pressure Mean 71 Blood Pressure Mean [Right Arm] Blood Pressure Source [Right Arm] 02 Sat by Pulse Oximetry 89 L Oxygen Delivery Method Nasal Cannula Oxygen Flow Rate (LPM) 3 Lab Data Lab Results 11/11/23 14:25: WBC 7.7, RBC 4.36, Hgb 9.7 L, Hct 32.8 L, MCV 75.3 L, MCH 22.2 L, MCHC 29.5 L, RDW 20.5 H, Plt Count 131 L, MPV 11.2 H, Neut % (Auto) 76.4, Lymph % (Auto) 14.8, [place] % (Auto) 7.2, Eos % (Auto) 1.2, Baso % (Auto) 0.4, Neut # (Auto) 5.9, Lymph # (Auto) 1.1, [place] # (Auto) 0.6, Eos # (Auto) 0.1, Baso # (Auto) 0.0, Sodium 116 L, Potassium 4.6, Chloride 83 L, Carbon Dioxide 28, Anion Gap 9.6, BUN 22 H D, Creatinine 1.20 H D, Estimated Creat Clear 73, Estimated GFR 46 L, Est GFR ( Amer) 55 L D, Glucose 95, Lactate 1.7, Calcium 8.2 L, Phosphorus 4.2, Magnesium 1.8, Total Bilirubin 0.7, AST 197 H D, ALT 112 H D, Alkaline Phosphatase 126, Troponin I 0.45 H, Total Protein 5.8 L, Albumin 3.1 L, Globulin 2.7, Albumin/Globulin Ratio 1.1, Lipase 42, SARS-CoV-2 (PCR) Not detected, Influenza A Untype (PCR) Not detected, Influenza Type B (PCR) Not detected 11/11/23 15:13: Ammonia < 9 L 11/11/23 14:25 11/11/23 14:25 Orders (Tests/Meds): ED MEDICATIONS Generic Name Dose Route Start Last Admin Trade Name Freq PRN Reason Stop Dose Admin Sodium Chloride 500 mls @ 500 mls/hr 11/11/23 16:01 11/11/23 16:05 Sod Chloride 0.9% 500ml Bag IV 11/11/23 17:00 500 mls/hr .Q1H CHINO Administration Ceftriaxone Sodium 1 gm/ 50 mls @ 100 mls/hr 11/11/23 16:30 Sodium Chloride IV 11/21/23 16:29 Q24H CHINO Sodium Chloride 10 ml 11/11/23 14:35 Sodium Chloride 0.9% 10ml Flush Syringe IV 12/11/23 14:34 NEEDED PRN Maintain IV Site Discontinued Medications Generic Name Dose Route Start Last Admin Trade Name Freq PRN Reason Stop Dose Admin Lactated Ringer's 500 mls @ 999 mls/hr 11/11/23 14:30 11/11/23 14:35 Lactated Ringer's 1000 Ml Bag IV 11/11/23 15:00 999 mls/hr .Q31M CHINO Administration Iopamidol 75 ml 11/11/23 15:15 11/11/23 15:16 Iopamidol-370 (76%);100ml Bottle IV 11/11/23 15:16 75 ml ONCE ONE Administration Morphine Sulfate 2 mg 11/11/23 14:23 11/11/23 14:35 Morphine 4mg/Ml Syringe IV 11/11/23 14:24 2 mg ONCE ONE Administration Ondansetron HCl 4 mg 11/11/23 14:23 11/11/23 14:35 Ondansetron 4mg/2ml Vial IV 11/11/23 14:24 4 mg ONCE ONE Administration Sodium Chloride 10 ml 11/11/23 15:15 11/11/23 15:16 Sodium Chloride 0.9% 10ml Syr (Rad Only) IV 11/11/23 15:16 10 ml ONCE ONE Administration ORDERS Category Date Time Status CT abdomen pelvis w con Stat Cat Scan 11/11/23 14:23 Completed CXR --portable [XR chest portable] Stat Exams 11/11/23 14:23 Completed Ammonia Stat Lab 11/11/23 15:13 Completed BNP [Brain Natriuretic Peptide] Stat Lab 11/11/23 14:25 Received CBC w/Auto Diff [Complete Blood Count Auto Diff] Stat Lab 11/11/23 14:25 Completed CMP [Comprehensive Metabolic Panel] Stat Lab 11/11/23 14:25 Completed Lactic Acid Stat Lab 11/11/23 14:25 Completed Lipase Stat Lab 11/11/23 14:25 Completed Magnesium Stat Lab 11/11/23 14:25 Completed Phosphorous Stat Lab 11/11/23 14:25 Completed Rapid PCR Covid and Flu A/B Stat Lab 11/11/23 14:25 Completed Trop I [Troponin I] Stat Lab 11/11/23 14:25 Completed Troponin I Q3H Lab 11/11/23 17:30 Ordered Troponin I Q3H Lab 11/11/23 20:30 Ordered UA [Urinalysis and Microscopic] Stat Lab 11/11/23 14:24 Ordered Blood Culture Stat Micro 11/11/23 16:24 Ordered Medical Decision Narrative: 63-year-old with above history and physical. Here primarily for nausea abdominal pain and dizziness. Her neurologic exam for me is normal right now including any posterior circulation exam however have not stood her to walker yet. She primarily has significant abdominal pain and tenderness. She was unaware of the amount of tenderness that she currently has. Differential is very broad without including mesenteric ischemia other surgical pathology such as bowel obstruction etc. Will get a contrasted CT scan to further evaluate this. She has no respiratory complaints but does have generalized malaise and infectious pathology such as COVID flu pneumonia or urinary tract infection on my differential for this patient particular given her very poor history. She has normal lower extremity exam aside from bruising which is at her baseline specifically normal vascular exam. I am not concerned about lower extremity ischemia. Overall was very difficult to ascertain the symptoms which led to her emergency department visit today and the workup is broad as is the differential. IV fluids and nausea medicine have been administered. Care will be transitioned to Dr. Jordan Jiang at 3 PM for final evaluation and management based on the above workup. <Vasile Jiang MD - Last Filed: 11/11/23 16:33> Vital Signs: 11/11/23 14:02 11/11/23 14:13 11/11/23 15:15 Temperature 98.2 F Temperature Source Oral Pulse Rate 84 91 H Respiratory Rate 18 20 Blood Pressure 105/42 L 90/41 L Blood Pressure [Right Arm] 105/42 L Blood Pressure Mean 49 59 Blood Pressure Mean [Right Arm] 63 Blood Pressure Source [Right Arm] Automatic Cuff 02 Sat by Pulse Oximetry 95 95 93 L Oxygen Delivery Method Nasal Cannula Nasal Cannula Oxygen Flow Rate (LPM) 3 3 11/11/23 15:46 Temperature Temperature Source Pulse Rate 85 Respiratory Rate 20 Blood Pressure 102/56 L Blood Pressure [Right Arm] Blood Pressure Mean 71 Blood Pressure Mean [Right Arm] Blood Pressure Source [Right Arm] 02 Sat by Pulse Oximetry 89 L Oxygen Delivery Method Nasal Cannula Oxygen Flow Rate (LPM) 3 Lab Data Lab Results 11/11/23 14:25: WBC 7.7, RBC 4.36, Hgb 9.7 L, Hct 32.8 L, MCV 75.3 L, MCH 22.2 L, MCHC 29.5 L, RDW 20.5 H, Plt Count 131 L, MPV 11.2 H, Neut % (Auto) 76.4, Lymph % (Auto) 14.8, [place] % (Auto) 7.2, Eos % (Auto) 1.2, Baso % (Auto) 0.4, Neut # (Auto) 5.9, Lymph # (Auto) 1.1, [place] # (Auto) 0.6, Eos # (Auto) 0.1, Baso # (Auto) 0.0, Sodium 116 L, Potassium 4.6, Chloride 83 L, Carbon Dioxide 28, Anion Gap 9.6, BUN 22 H D, Creatinine 1.20 H D, Estimated Creat Clear 73, Estimated GFR 46 L, Est GFR ( Amer) 55 L D, Glucose 95, Lactate 1.7, Calcium 8.2 L, Phosphorus 4.2, Magnesium 1.8, Total Bilirubin 0.7, AST 197 H D, ALT 112 H D, Alkaline Phosphatase 126, Troponin I 0.45 H, Total Protein 5.8 L, Albumin 3.1 L, Globulin 2.7, Albumin/Globulin Ratio 1.1, Lipase 42, SARS-CoV-2 (PCR) Not detected, Influenza A Untype (PCR) Not detected, Influenza Type B (PCR) Not detected 11/11/23 15:13: Ammonia < 9 L Orders (Tests/Meds): ED MEDICATIONS Generic Name Dose Route Start Last Admin Trade Name Freq PRN Reason Stop Dose Admin Sodium Chloride 500 mls @ 500 mls/hr 11/11/23 16:01 11/11/23 16:05 Sod Chloride 0.9% 500ml Bag IV 11/11/23 17:00 500 mls/hr .Q1H CHINO Administration Ceftriaxone Sodium 1 gm/ 50 mls @ 100 mls/hr 11/11/23 16:30 Sodium Chloride IV 11/21/23 16:29 Q24H CHINO Sodium Chloride 10 ml 11/11/23 14:35 Sodium Chloride 0.9% 10ml Flush Syringe IV 12/11/23 14:34 NEEDED PRN Maintain IV Site Discontinued Medications Generic Name Dose Route Start Last Admin Trade Name Freq PRN Reason Stop Dose Admin Lactated Ringer's 500 mls @ 999 mls/hr 11/11/23 14:30 11/11/23 14:35 Lactated Ringer's 1000 Ml Bag IV 11/11/23 15:00 999 mls/hr .Q31M CHINO Administration Iopamidol 75 ml 11/11/23 15:15 11/11/23 15:16 Iopamidol-370 (76%);100ml Bottle IV 11/11/23 15:16 75 ml ONCE ONE Administration Morphine Sulfate 2 mg 11/11/23 14:23 11/11/23 14:35 Morphine 4mg/Ml Syringe IV 11/11/23 14:24 2 mg ONCE ONE Administration Ondansetron HCl 4 mg 11/11/23 14:23 11/11/23 14:35 Ondansetron 4mg/2ml Vial IV 11/11/23 14:24 4 mg ONCE ONE Administration Sodium Chloride 10 ml 11/11/23 15:15 11/11/23 15:16 Sodium Chloride 0.9% 10ml Syr (Rad Only) IV 11/11/23 15:16 10 ml ONCE ONE Administration ORDERS Category Date Time Status CT abdomen pelvis w con Stat Cat Scan 11/11/23 14:23 Completed CXR --portable [XR chest portable] Stat Exams 11/11/23 14:23 Completed Ammonia Stat Lab 11/11/23 15:13 Completed BNP [Brain Natriuretic Peptide] Stat Lab 11/11/23 14:25 Received CBC w/Auto Diff [Complete Blood Count Auto Diff] Stat Lab 11/11/23 14:25 Completed CMP [Comprehensive Metabolic Panel] Stat Lab 11/11/23 14:25 Completed Lactic Acid Stat Lab 11/11/23 14:25 Completed Lipase Stat Lab 11/11/23 14:25 Completed Magnesium Stat Lab 11/11/23 14:25 Completed Phosphorous Stat Lab 11/11/23 14:25 Completed Rapid PCR Covid and Flu A/B Stat Lab 11/11/23 14:25 Completed Trop I [Troponin I] Stat Lab 11/11/23 14:25 Completed Troponin I Q3H Lab 11/11/23 17:30 Ordered Troponin I Q3H Lab 11/11/23 20:30 Ordered UA [Urinalysis and Microscopic] Stat Lab 11/11/23 14:24 Ordered Blood Culture Stat Micro 11/11/23 16:24 Ordered ECG Data Tracing #1: Independently interpreted by me, rate is 80, rhythm is regular, ST depression with upright T wave in V2 and V3, nonspecific ST changes in the lateral leads and inferior leads, QTc 433, no ST elevation in anatomical contiguous leads. Incomplete right bundle branch block. QTc 433. HEART Score History (anamnesis): Slightly suspicious ECG: Significant ST-deviation Age: 45-65 years Risk factors: 3 or more risk factors Troponin: > 3x normal limit HEART Score: 7 Medical Decision Narrative: 63-year-old with above history and physical. Here primarily for nausea abdominal pain and dizziness. Her neurologic exam for me is normal right now including any posterior circulation exam however have not stood her to walker yet. She primarily has significant abdominal pain and tenderness. She was unaware of the amount of tenderness that she currently has. Differential is very broad without including mesenteric ischemia other surgical pathology such as bowel obstruction etc. Will get a contrasted CT scan to further evaluate this. She has no respiratory complaints but does have generalized malaise and infectious pathology such as COVID flu pneumonia or urinary tract infection on my differential for this patient particular given her very poor history. She has normal lower extremity exam aside from bruising which is at her baseline specifically normal vascular exam. I am not concerned about lower extremity ischemia. Overall was very difficult to ascertain the symptoms which led to her emergency department visit today and the workup is broad as is the differential. IV fluids and nausea medicine have been administered. Care will be transitioned to Dr. Jordan Jiang at 3 PM for final evaluation and management based on the above workup. Vasile Jiang: Upon assumption of care patient has soft blood pressures, is a difficult historian however does have vague abdominal pain persistently. She does not have chest pain upon my evaluation. Per chart review patient was admitted last month due to type II NSTEMI from underlying pulmonary disease with severe COPD and pulmonary fibrosis with right-sided heart failure, patient has RVSP greater than 60. Limited echo performed by cardiology showed ejection fraction of 55% with findings consistent with elevated RV pressure. Patient is on oxygen at baseline. Dry weight target to 4 pounds. She is currently 210 pounds today. However in the setting of multiple diuretic use and persistent vomiting over the last 3 days I suspect she is intravascularly deplete for which IV fluids are being administered upon my assumption of care. Hematologic labs reviewed by me, no leukocytosis or acute anemia, patient does have hyponatremia of 116 with a baseline in the low to mid 130s. Patient has had a 8 point drop in sodium in the last 48 hours with concomitant hypochloremia which can be reflected by her vomiting. Mild transaminase elevations, no elevated bilirubin or lipase to suggest cholestatic picture. Troponin is elevated at 0.45, there is ST depression with incomplete right bundle branch block on EKG most prominent in the septal and anterolateral leads. Case was discussed with cardiology, they agree that this is likely NSTEMI and recommend trending troponins and treating hypokalemia cautiously. CT imaging remarkable for gallbladder wall thickening, no evidence of stones. Taking this altogether with recent hospitalization for NSTEMI secondary to right-sided heart failure I suspect patient likely has a calculus cholecystitis with resultant vomiting decreasing her preload causing type II NSTEMI in the setting of pulmonary hypertension and advanced lung disease. For this aggressive sepsis bolus fluids are deferred. Antibiotics will be initiated with ceftriaxone and metronidazole after blood cultures were drawn. The case was discussed with surgery here who agree patient will benefit from a higher level of care as given her acute metabolic derangements and complicated anesthesia requirements are not surgery here at [facility]. The case was subsequently discussed with [facility] and Dr. Cisneros graciously accepted patient for continued evaluation at this time. Critical Care <Boo Moya MD - Last Filed: 11/11/23 14:33> Critical Care Time Critical Care Time: No <Vasile Jiang MD - Last Filed: 11/11/23 16:33> Critical Care Time Critical Care Time: Yes Attestation: On 11/11/23, the high probability of a clinically significant, sudden or life threatening deterioration of the following system(s) required my full and direct attention, intervention and personal management. The time I documented below is in addition to time spent performing reported procedures but includes the following listed in this critical care notation. Total Time Total Critical Care Time: 40
[2023-11-11 14:31] LABS: Coronavirus 19, PCR Not Detected (NotDetected); Influenza A, PCR Not Detected (NotDetected); Influenza B, PCR Not Detected (NotDetected)
[2023-11-11] MEDS: MORPHINE 4MG/ML SYRINGE 2 MG IV (14:35)
[2023-11-11] MEDS: LACTATED RINGERS 1000ML 500 ML 999 ML IV (14:35)
[2023-11-11] MEDS: ONDANSETRON 4MG/2ML VIAL 4 MG IV (14:35)
--- NOTE | 2023-11-11 14:42 | ECG_ITS ---
APPROVED REPORT Exam: Resting ECG HR:80 bpm ECG Measurements Heart Rate 80 AXES MS 144 P 73 QRSd 109 QRS 50 QT 397 T 46 QTc 433 Conclusion SINUS RHYTHM LOW QRS VOLTAGE IN PRECORDIAL LEADS [QRS DEFLECTION < 1.0 mV IN CHEST LEADS] INCOMPLETE RIGHT BUNDLE BRANCH BLOCK [90+ ms QRS DURATION, TERMINAL R IN V1/V2, 40+ ms S IN I/aVL/V4/V5/V6] ST DEVIATION AND MODERATE T-WAVE ABNORMALITY, CONSIDER ANTERIOR ISCHEMIA [-0.1+ mV T-WAVE IN V3/V4] ABNORMAL ECG UNCONFIRMED REPORT Electronically signed by : Yosvany Moya, 11/12/2023 14:20:23
[2023-11-11 14:45] LABS: Chloride 83 mmol/L (98-107); Sodium 116 mmol/L (136-145)
[2023-11-11 14:46] LABS: Potassium 4.6 mmoL/L (3.5-5.1)
[2023-11-11 14:48] LABS: Alanine Aminotransferase 112 U/L (12-78); Albumin Level 3.1 g/dl (3.5-5.0); Albumin/Globulin Ratio 1.1 (1.1-1.8); Alkaline Phosphatase 126 U/L (38-126); Anion Gap 9.6 mEq/L (5-15); Aspartate Amino Transferase 197 U/L (14-36); Bilirubin,Total 0.7 mg/dl (0.2-1.3); Blood Urea Nitrogen 22 mg/dl (7-17); Carbon Dioxide 28 mmol/L (22.0-30.0); Creatinine Clearance Estimated 73 mL/min (50-200); Estimated Glomerular Filt Rate 46 ml/min (>60); GFR (African American) 55 ML/MIN (>60); Globulin 2.7 g/dL (1.3-3.2); Lactic Acid 1.7 mmol/L (0.7-2.1); Total Protein,Serum 5.8 g/dl (6.3-8.2)
[2023-11-11 14:49] LABS: Calcium 8.2 mg/dl (8.4-10.2); Glucose 95 mg/dl (74-100); Magnesium 1.8 mg/dl (1.6-2.3); Phosphorous 4.2 mg/dl (2.5-4.5)
[2023-11-11 14:50] LABS: Basophils % 0.4 % (0.1-2.0); Eosinophils # 0.1 K/mm3 (0.0-0.4); Eosinophils % 1.2 % (0.1-12.0); Hematocrit 32.8 % (37.0-47.0); Hemoglobin 9.7 g/dL (12.2-16.2); Lymphocytes # 1.1 K/mm3 (0.7-4.5); Lymphocytes % 14.8 % (10-50); Mean Corpuscular HGB Conc 29.5 g/dL (31.8-35.4); Mean Corpuscular Hemoglobin 22.2 pg (27.0-31.2); Mean Corpuscular Volume 75.3 fl (81-99); Mean Platelet Volume 11.2 fl (7.4-10.4); Monocytes # 0.6 K/mm3 (0.1-1.0); Monocytes % 7.2 % (1.7-9.3); Neutrophils # 5.9 K/mm3 (1.8-7.8); Neutrophils % 76.4 % (37.0-80.0); Platelet Count 131 K/mm3 (142-424); Red Blood Count 4.36 M/mm3 (4.20-5.40); Red Cell Distribution Width 20.5 % (11.5-17.5); White Blood Count 7.7 K/mm3 (4.8-10.8)
[2023-11-11 15:01] LABS: Troponin I 0.45 ng/ml (0.00-0.034)
[2023-11-11] MEDS: SODIUM CHLORIDE 0.9% 10ML SYR (RAD ONLY) 10 ML IV (15:16)
[2023-11-11] MEDS: IOPAMIDOL-370 (76%);100ML BOTTLE 75 ML IV (15:16)
[2023-11-11 15:26] LABS: Lipase 42 U/L (23-300)
[2023-11-11 15:27] LABS: Ammonia < 9 umol/L (9-30)
--- NOTE | 2023-11-11 15:58 | ECG_ITS ---
APPROVED REPORT Exam: Resting ECG HR:83 bpm ECG Measurements Heart Rate 83 AXES VT 149 P 71 QRSd 114 QRS 64 QT 380 T 53 QTc 420 Conclusion SINUS RHYTHM LOW QRS VOLTAGE IN PRECORDIAL LEADS [QRS DEFLECTION < 1.0 mV IN CHEST LEADS] INCOMPLETE RIGHT BUNDLE BRANCH BLOCK [90+ ms QRS DURATION, TERMINAL R IN V1/V2, 40+ ms S IN I/aVL/V4/V5/V6] MODERATE ST DEPRESSION Electronically signed by : CECILY RAMIREZ, 11/11/2023 22:57:08
--- NOTE | 2023-11-11 16:01 | PC.NURSE ---
Dr. Jiang would like to change 2nd 500 ml bolus to NS. Order placed in MAR. Pt just finished her 1st 500ml bolus.
[2023-11-11] MEDS: 0.9 % SODIUM CHLORIDE 500 ML IV (16:05)
--- NOTE | 2023-11-11 16:10 | PC.NURSE ---
Dr Jiang speaking with Dr Jack
--- NOTE | 2023-11-11 16:17 | PC.NURSE ---
paged surgeon distillation operator, Dr Jiang speaking to them now
--- NOTE | 2023-11-11 16:26 | PC.NURSE ---
dr Jiang speaking with [facility]
[2023-11-11 16:53] LABS: NT Pro Brain Natriuretic Pep. 18000 pg/mL (0-125)
[2023-11-11] MEDS: ASPIRIN 81MG CHEWABLE TABLET 324 MG PO (16:56)
[2023-11-11] MEDS: CEFTRIAXONE 1 GM 1 GM in 0.9 % SODIUM CHLORIDE 50 ML IV (16:56)
[2023-11-11] MEDS: METRONIDAZ/SOD CHL 500 MG/100 ML PIGGYBACK 100 MG IV (17:01)
--- NOTE | 2023-11-11 17:06 | PC.NURSE ---
report called to CINDY Ku at [facility].
--- NOTE | 2023-11-11 17:07 | PC.NURSE ---
EMS advised of transfer they will be here when other t5ruck gets back in town.
== END 2023-11-11 17:56 | disposition short-term general hospital (02) ==
PROVIDERS: Student in an Organized Health Care Education/Training Program; Emergency Provider Emergency Medicine; PCP Family Medicine
DX: K81.9 Cholecystitis, unspecified (principal); E87.1 Hypo-osmolality and hyponatremia; I27.20 Pulmonary hypertension, unspecified; I21.4 Non-ST elevation (NSTEMI) myocardial infarction; R11.0 Nausea; R55 Syncope and collapse; R53.1 Weakness; I25.118 Atherosclerotic heart disease of native coronary artery with other forms of angina pectoris; I11.0 Hypertensive heart disease with heart failure; I50.20 Unspecified systolic (congestive) heart failure; E78.5 Hyperlipidemia, unspecified; J44.9 Chronic obstructive pulmonary disease, unspecified; I65.29 Occlusion and stenosis of unspecified carotid artery; D72.10 Eosinophilia, unspecified; E03.9 Hypothyroidism, unspecified; F17.210 Nicotine dependence, cigarettes, uncomplicated; R10.9 Unspecified abdominal pain
CPT/HCPCS: 71045; 74177; 80053; 82140; 83605; 83690; 83735; 83880; 84100; 84484; 85025; 87040; 87636; 93005; 96374; 96375; 99291; J0696; J2405; Q9967

== ENCOUNTER 2023-11-25 09:42 | Outpatient (CLI) | payer MEDICARE, MEDICAID, SELFPAY ==
[2023-11-25 10:35] VITALS: PULSE 97; PULSE 98
[2023-11-25] MEDS: ALBUTEROL 0.083% 2.5 MG/3 ML NEB IH (10:35)
== END 2023-11-25 23:59 ==
LOC: RT 09:43
PROVIDERS: PCP Family Medicine; Visit Provider Internal Medicine Pulmonary Disease
DX: R06.09 Other forms of dyspnea (principal)
CPT/HCPCS: 94060; 94618; 94640; 94726; 94729

== ENCOUNTER 2023-11-29 13:32 | Day surgery (SDC) | payer MEDICARE, MEDICAID, SELFPAY ==
[2023-11-29 13:42] VITALS: BP 96/53; PULSE 85; RESP 18; TEMP 36.3; O2SAT 89; BMI 28.7
[2023-11-29] MEDS: methylPREDNISolone ACETATE 80MG/ML VIAL 80 MG (13:54)
[2023-11-29] MEDS: BUPIVACAINE 0.25% 10ML INJ 25 MG IJ (13:54)
[2023-11-29] MEDS: LIDOCAINE 1% 5ML PF VIAL 5 ML (13:55)
--- NOTE | 2023-11-29 13:56 | P.PCN_ITS ---
Procedure Date: 11/29/23 Time: 13:50 Anesthesiologist:: Roberto Miller CRNA Complications:: None Pre-procedure Diagnosis:: DJD right knee. Chronic right knee pain. Post-procedure Diagnosis:: Same. Indications for Procedure:: Patient is a pleasant 63-year-old female comes our clinic today for right intra- articular knee injection. Patient reports right knee pain is 10/10 with ambulation. 7/10 when sitting. She describes the right knee pain as constant, dull, aching. Procedure Details:: Procedure Details: Bilateral intra-articular knee injection Informed consent was obtained risk and benefits of the procedure were explained to the patient. Patient was taken the procedure room both knees were prepped using ChloraPrep. A 25-gauge needle was used to inject 10 mL bupivacaine 0.25% and Depo-Medrol 40 mg into each knee. We did a total of 80 mg Depo-Medrol for both knees. The patient tolerated the procedure well with no complications. Plan and Disposition:: Patient was discharged without incident.
[2023-11-29 13:58] VITALS: BP 123/57; PULSE 81; RESP 18; O2SAT 89
[2023-11-29 15:08] LABS: Basophils % 0.6 % (0.1-2.0); Eosinophils # 0.1 K/mm3 (0.0-0.4); Hematocrit 34.6 % (37.0-47.0); Hemoglobin 9.8 g/dL (12.2-16.2); Lymphocytes # 1.3 K/mm3 (0.7-4.5); Mean Corpuscular HGB Conc 28.4 g/dL (31.8-35.4); Mean Corpuscular Hemoglobin 21.5 pg (27.0-31.2); Mean Corpuscular Volume 75.7 fl (81-99); Mean Platelet Volume 10.2 fl (7.4-10.4); Monocytes # 0.5 K/mm3 (0.1-1.0); Monocytes % 7.3 % (1.7-9.3); Neutrophils # 4.9 K/mm3 (1.8-7.8); Neutrophils % 71.1 % (37.0-80.0); Platelet Count 144 K/mm3 (142-424); Red Blood Count 4.57 M/mm3 (4.20-5.40); Red Cell Distribution Width 19.6 % (11.5-17.5); White Blood Count 6.9 K/mm3 (4.8-10.8)
[2023-11-29 15:16] LABS: Chloride 102 mmol/L (98-107)
[2023-11-29 15:17] LABS: Potassium 3.7 mmoL/L (3.5-5.1); Sodium 138 mmol/L (136-145)
[2023-11-29 15:19] LABS: Alanine Aminotransferase 12 U/L (12-78); Alkaline Phosphatase 92 U/L (38-126); Anion Gap 5.7 mEq/L (5-15); Aspartate Amino Transferase 18 U/L (14-36); Bilirubin,Direct 0.3 mg/dl (0.0-0.4); Bilirubin,Indirect 0.2 mg/dL (0.0-0.9); Bilirubin,Total 0.5 mg/dl (0.2-1.3); Bilirubin,Unconjugated 0.2 mg/dL (0.0-1.1); Blood Urea Nitrogen 9 mg/dl (7-17); Carbon Dioxide 34 mmol/L (22.0-30.0); Creatinine Clearance Estimated 86 mL/min (50-200); Estimated Glomerular Filt Rate 85 ml/min (>60); GFR (African American) 103 ML/MIN (>60); Total Protein,Serum 5.7 g/dl (6.3-8.2)
[2023-11-29 15:20] LABS: Calcium 8.6 mg/dl (8.4-10.2); Chol/HDL Ratio 1.9 (1-3.5); Cholesterol 97 mg/dl (140-200); Glucose 79 mg/dl (74-100); HDL Cholesterol 50 mg/dl (40-60); Triglycerides 56 mg/dl (30-150); VLDL Cholesterol 11 mg/dL (0-40)
[2023-11-29 15:32] LABS: Direct LDL Cholesterol 38.18 mg/dL (100-129)
[2023-11-29 15:36] LABS: Free T4 (Free Thyroxine) 0.87 ng/dl (0.78-2.19)
[2023-11-29 15:50] LABS: Thyroid Stimulating Hormone 1.13 uIU/mL (0.465-4.68)
== END 2023-11-29 13:58 | disposition home or self-care (01) ==
PROVIDERS: Internal Medicine; PCP Family Medicine; Visit Provider Nurse Anesthetist, Certified Registered
DX: E78.5 Hyperlipidemia, unspecified (principal); I10 Essential (primary) hypertension; R13.10 Dysphagia, unspecified; I27.21 Secondary pulmonary arterial hypertension; R74.8 Abnormal levels of other serum enzymes; I50.32 Chronic diastolic (congestive) heart failure; M17.11 Unilateral primary osteoarthritis, right knee; M25.561 Pain in right knee; G89.29 Other chronic pain
CPT/HCPCS: 20610; 36415; 80048; 80061; 80076; 83735; 84439; 84443; 85025; J1010

== ENCOUNTER 2023-12-05 09:31 | Outpatient (CLI) | payer MEDICARE, MEDICAID, SELFPAY ==
--- NOTE | 2023-12-05 09:31 | FL_ITS ---
FINAL REPORT CLINICAL HISTORY: difficulty swallowing 1.35 min DAP 699.52 FINDINGS: ESOPHAGRAM HISTORY: Abdominal pain, nausea. PROCEDURE: The patient ingested barium. Effervescent crystals were also administered. Spot and overhead films were obtained. Number of images: 21 DAP: 699.5 to uGym[employer]. FINDINGS: Examination is limited as the patient was unable to swallow large boluses of contrast and was limited in mobility. No esophageal strictures identified. A 13 mm barium tablet passes through the esophagus and into the stomach without delay. There is no significant hiatal hernia. No gastroesophageal reflux was demonstrated during the exam. IMPRESSION: Limited but otherwise unremarkable esophagram. Films reviewed , interpreted and dictated by Dr. Floyd. Transcribed by Milton Youngblood PA-C. Reviewed, Interpreted and Dictated by Sumeet Floyd MD Transcribed by MELISSA Morin Authenticated and [facility]
[2023-12-05] MEDS: BARIUM SULFATE(LIQUID E-Z-PAQUE);355ML BOTTLE 355 ML PO (10:41)
[2023-12-05] MEDS: BARIUM SULFATE (E-Z-HD 340GM);135ML BOTTLE 135 ML PO (10:41)
[2023-12-05] MEDS: E-Z-GASII EFFERVESCENT GRANULES;1PK 1 EACH PO (10:42)
== END 2023-12-05 23:59 | disposition home or self-care (01) ==
LOC: RAD 09:31
PROVIDERS: PCP Family Medicine; Visit Provider Nurse Practitioner
DX: R13.10 Dysphagia, unspecified (principal)
CPT/HCPCS: 74220

== ENCOUNTER 2023-12-13 09:41 | Day surgery (SDC) | payer MEDICARE, MEDICAID, SELFPAY ==
[2023-12-09 12:39] VITALS: BMI 28.3
[2023-12-13] MEDS: APRACLONIDINE 0.5% OPHTH SOLN 5ML OP (09:53)
[2023-12-13] MEDS: TROPICAMIDE 1% OPTH SOLN 2ML OP (09:54)
[2023-12-13] MEDS: TETRACAINE 0.5% OPTH SOL 15ML OP (09:54)
[2023-12-13] MEDS: PHENYLEPHRINE 2.5% OPHTH SOLN 2ML 0.0500000000000000028 ML OP (09:55)
[2023-12-13 09:56] VITALS: BP 101/37; PULSE 78; RESP 20; TEMP 36.6; O2SAT 97
--- NOTE | 2023-12-13 11:30 | P.PCN_ITS ---
[facility] Procedure Note Date: 12/13/23 Time: 11:30 Procedure Note:: Preoperative diagnosis: Posterior Opacification [left] eye Postoperative diagnosis: same Operation: YAG Laser Capsulotomy The patient has undergone uneventful cataract surgery in the past. The patient has noticed that the vision has decreased from the previous good level postop. The patient reports that he/she is having trouble reading and/or driving or that glare is giving them a problem. On exam, the patient was found to have visually significant posterior capsular opacification. The treatment options, risks and benefits were explained and the patient elected to have YAG laser capsulotomy in an attempt to improve the vision. Of note, the best corrected visual acuity is in the 23/30 or worse range by refraction or glare testing. The eye was dilated and 1 drop of 0.5% Iopidine applied. YAG laser energy was applied to the posterior capsular bag with good formation of an opening and no complications were noted. The patient will be seen back for follow up in 2 weeks OS 36 pulses, 114mj
== END 2023-12-13 11:00 | disposition home or self-care (01) ==
LOC: OUTP 09:42
PROVIDERS: PCP Family Medicine; Visit Provider Ophthalmology
PROC: (CPT 66821; principal; 2023-12-13 11:30)
DX: H26.492 Other secondary cataract, left eye (principal); Z79.899 Other long term (current) drug therapy; Z87.891 Personal history of nicotine dependence; J44.9 Chronic obstructive pulmonary disease, unspecified; I10 Essential (primary) hypertension
CPT/HCPCS: 66821

== ENCOUNTER 2023-12-19 10:32 | Outpatient (RCR) | payer MEDICARE, MEDICAID, SELFPAY | END 2024-03-07 14:00 | disposition home or self-care (01) | LOC: PT 10:32 | PROVIDERS: Visit Provider Internal Medicine Pulmonary Disease | DX: J44.9 Chronic obstructive pulmonary disease, unspecified (principal) | CPT/HCPCS: 94626 ==

== ENCOUNTER 2023-12-19 13:35 | Outpatient (POV) | payer MEDICARE, MEDICAID, SELFPAY ==
--- NOTE | 2023-12-19 14:10 | EXP.PAIN.SOA ---
[facility] Pain Management SOAP Note Subjective:: Patient is a pleasant 63-year-old female who presents today for follow-up of right intra-articular knee injection on 11/29/2023. Today she rates her pain a 10 out of 10. Patient denies any new injury or trauma. She states that she had no real relief following this injection. Patient does states she has been experiencing worsening low back pain. She states it is in and around her hips and buttocks area. She describes this as an aching, throbbing sensation that is worse with Prolonged positioning such as sitting or standing.Patient does state that the pain interferes with her ability to perform activities of daily living such as cooking and cleaning. Patient also states with her weight loss that she has had that she feels like her pump feels a little different and that it moves a little bit more. Patient states if we can take a look and make sure everything looks accordingly. Patient does also state that she continues to have chronic pain related to her knees with the right knee being the worst knee. Patient states that she would like to look into gel injections and is asking if we can refer her to a doctor here for possible intervention. Patient is managed with a intrathecal pump of Dilaudid 1 mg/mL with a daily dose of 0.286 mg/day. Patient is an at home refill client. She denies any side effects from this medication. Patient is prescribed pregabalin and alprazolam from an outside provider. Her Je has been reviewed and is appropriate. Review of Systems: General: No recent weight changes, no fever, no sleep disturbances Respiratory: No cough, no shortness of air, no recurring pulmonary infections Cardiovascular/peripheral vascular: No chest pain, no palpitations, no edema, no shortness of breath Gastrointestinal: No new onset incontinence, normal bowel movements reported Genitourinary: No new onset incontinence Musculoskeletal: Low back pain, bilateral hip pain Psychiatric: [Normal mood/affect] Neurological: [Denies weakness in extremities], [denies balance issues] Objective:: Physical Exam: General: Alert and oriented x3, no acute distress, pleasant and cooperative Lungs: Respirations even and unlabored, symmetrical chest expansion Eyes: PERRL Musculoskeletal: Flexion and extension of lumbar [spine] somewhat guarded secondary to pain, [antalgic gait noted] point tenderness along bilateral SIs with positive bilateral Fani's, Candice's, Gaenslen's, compression and distraction exam Neurological: Speech clear, no gross sensory deficit Assessment:: Degenerative disc disease of lumbar spine with lumbar radiculopathy symptoms, sacroiliitis, chronic knee pain Plan:: I have discussed with the patient that due to her continued chronic pain in her low back and hips with point tenderness with palpation along her bilateral SIs and a positive bilateral Fani's, Candice's, Gaenslen's, compression and distraction exam that she may benefit from bilateral SI injection. Risk and benefits were discussed with patient and at this time she states that she would like to see about her knee first. I have counseled the patient that we will send a referral over to Dr. Darnell Zelaya's office for evaluation for gel injections. I have counseled the patient that she can call and schedule her SI injections over the phone between now and her next visit. Patient acknowledges understanding. We did try to do an increase in today's visit however our flowonix pump greater was not working correctly and we have counseled the patient to contact her [employer] branch sales and service representative to see about getting an at home increase. Patient agrees with this plan of care. Patient will contact our office for her next follow-up. Patient has been instructed to contact the clinic with any concerns before the next appointment. Dr. Shields has reviewed this note and agrees with this plan of care. This note was dictated using voice recognition software and make contain errors or omissions. -- It Is medically necessary for this patient to continue to have their intrathecal pump refilled at regular intervals. This patient had an intrathecal pain pump implanted after meeting criteria of chronic intractable pain for greater than 3 months and failing conservative treatments. Patient has committed and been compliant to the treatment plan and all planned follow up care. Since implantation of the intrathecal pain pump, the patient has had decreased pain and been more functional. Oral medications have been reduced including intake of oral opioids. Patient continues to do well with intrathecal therapy with decrease in pain symptoms and increase in functional status. Stopping intrathecal medications can lead to life threatening withdrawal, seizures, cardiac arrest, severe pain, and possible . Pumps that are not refilled at regular intervals can be damages and cause and need for replacement. We continually titrate dose and concentration to optimize pain relief and function. We are limited in concentration for certain drugs to safely deliver medications through the pump and stay within the recommendations from the Polyanalgesic Consensus Committee Guidelines. Depending on dose and concentration these pumps may need to be refilled sooner than 3 months as we titrate. [facility] Disclaimer: The information contained in this section may have been updated after the patient was seen, as this information can be updated by other users. Medical History Dysphagia Elevated liver enzymes Pulmonary hypertension Right ventricular failure Elevated troponin Pneumonia Acute and chronic respiratory failure with hypoxia Anxiety Depression Hyperlipidemia Rectal prolapse Pneumonia Cataract CHF (congestive heart failure) COPD (chronic obstructive pulmonary disease) Pulmonary hypertension Stenosis of carotid artery Shortness of Breath Osteoarthritis Fibromyalgia History of gastroesophageal reflux (GERD) Congestive heart failure COPD mixed type O2 2-3lpm x 24 hours. 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 Hypokalemia Sore throat Leg pain Cough Dyspnea on exertion Eosinophilia Allergic rhinitis, unspecified Tobacco abuse disorder Tobacco abuse counseling Encounter for screening for malignant neoplasm of lung in current smoker with 30 pack year history or greater Chronic bronchitis Pulmonary fibrosis Lung nodule Asthma COPD (chronic obstructive pulmonary disease) Eosinophilia Allergic rhinitis Tobacco abuse counseling Tobacco abuse Encounter for screening for malignant neoplasm of lung in current smoker with 30 pack year history or greater Chronic bronchitis Pulmonary fibrosis, unspecified Lung nodule Unspecified asthma, uncomplicated Allergic rhinitis, unspecified Tobacco abuse counseling Edema Bilateral leg pain CAD (coronary artery disease) Elevated left ventricular end-diastolic pressure (LVEDP) Tobacco dependence syndrome Fatigue Atypical angina Dyspnea Abnormal cardiovascular stress test Bilateral leg pain TMJ dysfunction Fibromyalgia Bilateral low back pain with sciatica Leg pain, bilateral Obesity (BMI 30-39.9) Hyperlipidemia Hypothyroidism GERD (gastroesophageal reflux disease) COPD (chronic obstructive pulmonary disease) Neuropathy Anxiety Hypertension Surgical History History of spinal surgery History of bladder suspension procedure History of sinus surgery History of hysterectomy History of hemorrhoidectomy History of section History of cardiac cath History of colonoscopy History of arthroscopy of knee Family History Mother Hypertension Family history of acute congestive heart failure Father No problems noted. Social History Smoking Status: Current every day smoker tobacco type: cigarettes packs per day: 1 years smoked: 40 second hand exposure: Yes alcohol intake: never substance use type: denies use current occupational status: disabled Travel in the last 8 weeks: None household members: spouse housing: house current occupational exposures/hazards: No caffeine: Yes bobby/sabianism: Jainism
[2023-12-19 15:39] VITALS: BP 126/46; PULSE 87; RESP 18; O2SAT 95; BMI 29.2
--- NOTE | 2023-12-20 15:46 | PC.NURSE ---
Per sayra,health worker request appt made for pt for Dr Zelaya for R knee. Spoke with pt on the phone at this time to notify pt of appt on December 28 at 11am.
== END 2023-12-19 23:59 | disposition home or self-care (01) ==
LOC: SC.PAIN 13:36
PROVIDERS: PCP Family Medicine; Visit Provider Nurse Practitioner Family
DX: M51.16 Intervertebral disc disorders with radiculopathy, lumbar region (principal); M46.1 Sacroiliitis, not elsewhere classified; M25.561 Pain in right knee; G89.29 Other chronic pain; Z97.8 Presence of other specified devices
CPT/HCPCS: 99212; G0463

== ENCOUNTER 2023-12-29 09:40 | Outpatient (POV) | payer MEDICARE, MEDICAID, SELFPAY ==
--- NOTE | 2023-12-29 09:50 | EXP.PAIN.PRO ---
Procedure Date: 12/29/23 Time: 09:58 Anesthesiologist:: Georgiana Zelaya APRN Complications:: None Pre-procedure Diagnosis:: Degenerative disc disease of lumbar spine with lumbar radiculopathy symptoms, sacroiliitis, chronic knee pain Post-procedure Diagnosis:: Same Indications for Procedure:: Patient is a pleasant 63-year-old female who presents today for intrathecal adjustment and reprogram.Today she rates her pain a 10 out of 10. Patient denies any new injury or trauma. She states she is still having the worsening pain in her hips and buttocks area. She states that she does not want to proceed forward with the SI injections that we discussed at her last visit. Her pain is an aching, throbbing sensation that is worse with prolonged positioning such as sitting or standing. It does interferes with her ability to perform activities of daily living such as cooking and cleaning. Patient is managed with a intrathecal pump of Dilaudid 1 mg/mL with a daily dose of 0.286 mg/day. Patient is an at home refill client. She denies any side effects from this medication. At her last visit we did try and give her an increase however the device was malfunctioning and we could not do this. She is requesting if we can make an adjustment today. Patient is prescribed pregabalin and alprazolam from an outside provider. Her Je has been reviewed and is appropriate. Review of Systems: General: No recent weight changes, no fever, no sleep disturbances Respiratory: No cough, no shortness of air, no recurring pulmonary infections Cardiovascular/peripheral vascular: No chest pain, no palpitations, no edema, no shortness of breath Gastrointestinal: No new onset incontinence, normal bowel movements reported Genitourinary: No new onset incontinence Musculoskeletal: Low back pain, bilateral hip pain Psychiatric: [Normal mood/affect] Neurological: [Denies weakness in extremities], [denies balance issues] Procedure Details:: Informed consent was obtained and the risk and benefits of the procedure were explained to the patient. Patient was taken to the procedure room where noninvasive monitoring was placed including noninvasive blood pressure cuff and pulse oximeter. Patient's pump was interrogated and was reprogrammed to Dilaudid 0.3112. The patient tolerated the procedure well with no complications. Plan and Disposition:: Patient tolerated her intrathecal increase with no complications and was discharged neurologically intact. Patient is still having worsening pain in her low back and hips with limited range of motion of her lumbar spine. Patient does continue to have point tenderness along her bilateral SIs and a positive bilateral Fani's, Candice's, Gaenslen's, compression and distraction exam. I have reviewed over the risk and benefits again of the bilateral SI injections and she would like to proceed forward with this plan of care. Patient will be scheduled for bilateral SI injections under fluoroscopy. Patient has continued to try conservative therapies with minimal relief including at home exercising and stretching between injections. Patient has been instructed to contact the clinic with any concerns before the next appointment. Dr. Shields has reviewed this note and agrees with this plan of care. This note was dictated using voice recognition software and make contain errors or omissions. -- It Is medically necessary for this patient to continue to have their intrathecal pump refilled at regular intervals. This patient had an intrathecal pain pump implanted after meeting criteria of chronic intractable pain for greater than 3 months and failing conservative treatments. Patient has committed and been compliant to the treatment plan and all planned follow up care. Since implantation of the intrathecal pain pump, the patient has had decreased pain and been more functional. Oral medications have been reduced including intake of oral opioids. Patient continues to do well with intrathecal therapy with decrease in pain symptoms and increase in functional status. Stopping intrathecal medications can lead to life threatening withdrawal, seizures, cardiac arrest, severe pain, and possible . Pumps that are not refilled at regular intervals can be damages and cause and need for replacement. We continually titrate dose and concentration to optimize pain relief and function. We are limited in concentration for certain drugs to safely deliver medications through the pump and stay within the recommendations from the Polyanalgesic Consensus Committee Guidelines. Depending on dose and concentration these pumps may need to be refilled sooner than 3 months as we titrate.
[2023-12-29 09:59] VITALS: BP 104/65; PULSE 75; RESP 18; O2SAT 93; BMI 28.4
== END 2023-12-29 23:59 | disposition home or self-care (01) ==
PROVIDERS: Visit Provider Nurse Practitioner Family
DX: M51.36 Other intervertebral disc degeneration, lumbar region (principal)
CPT/HCPCS: 99212; G0463

== ENCOUNTER 2023-12-29 10:32 | Outpatient (CLI) | payer MEDICARE, MEDICAID, SELFPAY ==
--- NOTE | 2023-12-29 10:41 | XR_ITS ---
FINAL REPORT CLINICAL HISTORY: right knee pain COMPARISON: None FINDINGS: Three views of the right knee reveal a nondisplaced fracture of the lateral tibial plateau of uncertain age. This may be acute or subacute. There is moderate degenerative change. A large joint effusion is noted. No localized soft tissue abnormality is identified. IMPRESSION: Lateral tibial plateau fracture of uncertain age. Large joint effusion. Reviewed, Interpreted and Dictated by Brendan Multani III, MD Transcribed by Joslyn Ortiz Authenticated and [facility]
[2023-12-29 12:12] LABS: Anion Gap 9.7 mEq/L (5-15); Blood Urea Nitrogen 8 mg/dl (7-17); Calcium 8.8 mg/dl (8.4-10.2); Carbon Dioxide 34 mmol/L (22.0-30.0); Chloride 97 mmol/L (98-107); Estimated Glomerular Filt Rate 101 ml/min (>60); GFR (African American) 123 ML/MIN (>60); Glucose 92 mg/dl (74-100); Potassium 3.7 mmoL/L (3.5-5.1); Sodium 137 mmol/L (136-145)
== END 2023-12-29 23:59 | disposition home or self-care (01) ==
LOC: LAB 10:34
PROVIDERS: PCP Family Medicine; Visit Provider Physician Assistant
DX: M25.561 Pain in right knee (principal); I95.2 Hypotension due to drugs; I27.21 Secondary pulmonary arterial hypertension; I50.32 Chronic diastolic (congestive) heart failure
CPT/HCPCS: 36415; 73562; 80048; 99212; G0463

== ENCOUNTER 2024-01-17 07:45 | Day surgery (SDC) | payer MEDICARE, MEDICAID, SELFPAY ==
[2024-01-17 08:14] VITALS: BP 104/51; PULSE 78; RESP 18; O2SAT 98; BMI 28.5
[2024-01-17] MEDS: methylPREDNISolone ACETATE 80MG/ML VIAL 80 MG (09:18)
[2024-01-17] MEDS: BUPIVACAINE 0.25% 10ML INJ 25 MG IJ (09:18)
[2024-01-17] MEDS: LIDOCAINE 1% 5ML PF VIAL 5 ML (09:18)
[2024-01-17 09:19] VITALS: BP 112/53; PULSE 72; RESP 20; O2SAT 97
[2024-01-17 09:20] VITALS: BP 112/53; PULSE 72; RESP 20; O2SAT 97
[2024-01-17 09:25] VITALS: BP 115/52; PULSE 73; RESP 18; O2SAT 98
--- NOTE | 2024-01-17 09:29 | P.PCN_ITS ---
Procedure Date: 01/17/24 Time: 09:00 Anesthesiologist:: Roberto Miller CRNA Complications:: None Pre-procedure Diagnosis:: Bilateral sacroiliitis. Degenerative disc lumbar spine multilevels. Lumbar radiculopathy. Lumbar spine postlaminectomy syndrome. Lumbar spinal stenosis. Post-procedure Diagnosis:: Same. Indications for Procedure:: Patient is a very pleasant 63-year-old female comes our clinic today for bilateral sacroiliac joint injections cortisone. We are currently managing the patient with intrathecal Dilaudid 1 mg/mL at a rate of 0.3112 mg today. Patient doing very well with her current settings. She is not requesting any changes. She does not report any side effects or complications. Upon examination she has extreme point tenderness over the bilateral sacroiliac joint's. She reports difficulty transitioning from sitting to standing. Patient's main complaint is right knee pain. She has had multiple steroid injections into the right knee with minimal results. Patient is interested in trying joint replacement fluid. My recommendation would be for her to return to the orthopedic surgeon for this procedure. Procedure Details:: Procedure: Bilateral sacroiliac joint injections under fluoroscopy Informed consent was obtained and the risks and benefits of the procedure were explained to the patient.~ The patient was taken to the procedure room and noninvasive monitors were placed including a noninvasive blood pressure cuff and pulse oximeter.~ The patient was placed prone on the procedure table. Both hips were cleansed using Betadine as a cleansing solution. C-arm fluoroscopy was used to view the right sacroiliac joint.~ The skin and subcutaneous tissues were anesthetized using lidocaine 1.5% and a 25-gauge needle.~ After this, a 22-gauge spinal needle was inserted under fluoroscopic guidance into the inferior aspect of the right sacroiliac joint.~ Omnipaque dye was injected and good spread was seen throughout the joint.~ After this, approximately 5 mL of bupivacaine, 0.25% and Depo-Medrol, 40 mg was incrementally injected into the right sacroiliac joint. We then moved to the left sacroiliac joint.~ The skin and subcutaneous tissues were anesthetized using lidocaine 1.5% and a 25-gauge needle.~ After this, a 22- gauge spinal needle was inserted under fluoroscopic guidance into the inferior aspect of the left sacroiliac joint.~ Omnipaque dye was injected and good spread was seen throughout the joint. After this, approximately 5 mL of bupivacaine, 0.25% and Depo-Medrol, 40 mg was incrementally injected into the left sacroiliac joint.~ The patient tolerated the procedure well with no complications. The patient was observed in the Pain Clinic and then was discharged home neurologically intact. Plan and Disposition:: Patient was discharged without incident.
== END 2024-01-17 09:30 | disposition home or self-care (01) ==
PROVIDERS: PCP Family Medicine; Visit Provider Nurse Anesthetist, Certified Registered
DX: M46.1 Sacroiliitis, not elsewhere classified (principal); M51.16 Intervertebral disc disorders with radiculopathy, lumbar region; M96.1 Postlaminectomy syndrome, not elsewhere classified; M48.061 Spinal stenosis, lumbar region without neurogenic claudication; Z97.8 Presence of other specified devices
CPT/HCPCS: 27096; G0260; J1010

== ENCOUNTER 2024-02-01 09:55 | Outpatient (POV) | payer MEDICARE, MEDICAID, SELFPAY ==
--- NOTE | 2024-02-01 10:35 | EXP.PAIN.PRO ---
Procedure Date: 02/01/24 Time: 10:36 Anesthesiologist:: Georgiana Zelaya APRN Complications:: None Pre-procedure Diagnosis:: Degenerative disc disease of lumbar spine with lumbar radiculopathy symptoms, lumbar postlaminectomy syndrome, sacroiliitis, lumbar spinal stenosis Post-procedure Diagnosis:: Same Indications for Procedure:: Patient is a pleasant 63-year-old female who presents today for follow-up of bilateral SI injections on 01/17/2024. Today she rates her pain a 10 out of 10. Patient does state that she did have approximately 80% relief with these injections however it only lasted about 3 days. Patient denies any new trauma or injury. She does state that she still continues to have worsening pain in her right knee. Patient states she would like to try gel injections and did speak with our other provider regarding this. Patient was saw at Dr. Quintanilla's office here at [facility] in the past however states it has been a little while and that they did talk about possible gel. Patient is currently managed with Dilaudid 2 mg/mL with a daily dose of 0.3112 mg/day. She denies any side effects from this medication. The patient is requesting if there are any medications we could try to help with her overall arthritis and pain. Her Je has been reviewed and is appropriate. Physical Exam: General: Alert and oriented x3, no acute distress, pleasant and cooperative Lungs: Respirations even and unlabored, symmetrical chest expansion Eyes: PERRL Musculoskeletal: Flexion and extension of right knee [spine] somewhat guarded secondary to pain, [antalgic gait noted] Neurological: Speech clear, no gross sensory deficit Procedure Details:: Informed consent was obtained and the risk and benefits of the procedure were explained to the patient. Patient was taken to the procedure room where noninvasive monitoring was placed including noninvasive blood pressure cuff and pulse oximeter. Patient's pump was interrogated and was reprogrammed to Dilaudid 0.373mg/day. The patient tolerated the procedure well with no complications. Plan and Disposition:: Patient tolerated her intrathecal increase with no complications and was discharged neurologically intact. I have discussed with the patient at length regarding possible interventions for her right knee pain. Unfortunately the genicular nerve block is no longer covered by her insurance. I did discuss with the patient that I would highly recommend that she goes back to Dr. Zelaya's office to request the gel injections but that is something we do not do here in our office. Patient is agreeable to this plan of care. I did review over the patient's labs and that her kidney function is with in normal range however the patient does have significant history of heart related issues and therefore I will not prescribe any NSAIDs to help with the chronic arthritis. Patient will contact our office for her next in office appointment. She is an [facility] home refill patient and we will send over the updated telemetry and so she is refilled with the new date on or before February 25, 2024. We will see the patient back in the clinic at the next intrathecal refill. Patient has been instructed to contact the clinic with any concerns before the next appointment. Dr. Shields has reviewed this note and agrees with this plan of care. This note was dictated using voice recognition software and make contain errors or omissions. -- It Is medically necessary for this patient to continue to have their intrathecal pump refilled at regular intervals. This patient had an intrathecal pain pump implanted after meeting criteria of chronic intractable pain for greater than 3 months and failing conservative treatments. Patient has committed and been compliant to the treatment plan and all planned follow up care. Since implantation of the intrathecal pain pump, the patient has had decreased pain and been more functional. Oral medications have been reduced including intake of oral opioids. Patient continues to do well with intrathecal therapy with decrease in pain symptoms and increase in functional status. Stopping intrathecal medications can lead to life threatening withdrawal, seizures, cardiac arrest, severe pain, and possible . Pumps that are not refilled at regular intervals can be damages and cause and need for replacement. We continually titrate dose and concentration to optimize pain relief and function. We are limited in concentration for certain drugs to safely deliver medications through the pump and stay within the recommendations from the [employer] Consensus [employer] Guidelines. Depending on dose and concentration these pumps may need to be refilled sooner than 3 months as we titrate.
[2024-02-01 16:04] VITALS: BP 109/64; PULSE 90; RESP 20; O2SAT 97; BMI 28.5
== END 2024-02-01 23:59 | disposition home or self-care (01) ==
PROVIDERS: PCP Family Medicine; Visit Provider Nurse Practitioner Family
DX: M51.16 Intervertebral disc disorders with radiculopathy, lumbar region (principal); M96.1 Postlaminectomy syndrome, not elsewhere classified; M46.1 Sacroiliitis, not elsewhere classified; M48.061 Spinal stenosis, lumbar region without neurogenic claudication; Z97.8 Presence of other specified devices; Z45.1 Encounter for adjustment and management of infusion pump
CPT/HCPCS: 62368; 99212; 99213; G0463

== ENCOUNTER 2024-02-07 14:45 | Inpatient (IN) | payer MEDICARE, MEDICAID, SELFPAY ==
[2024-02-07] VITALS (16 sets, daily range): BP systolic 80–113; BP diastolic 46–67; PULSE 70–102; RESP 20–26; TEMP 36.5; O2SAT 67–100; BMI 29.5
--- NOTE | 2024-02-07 14:49 | ED_ITS ---
<Statement entered by Boo Moya MD - 02/07/24 22:51> I was consulted by the NATTY, and we discussed the complexity of the problems being addressed. I approved the treatment and management plan for this patient's care in the emergency department, thus performing a substantive portion of the medical decision making. Boo Moya MD, DILLON, FACEP Discharge Plan Disposition Patient Disposition: Admitted Condition: Fair Clinical Impressions Clinical Impression: Acute on chronic hypoxic respiratory failure Acute exacerbation of CHF (congestive heart failure) Qualifiers: Heart failure type: unspecified Qualified Code(s): I50.9 - Heart failure, unspecified Discharge ED Provider: Boo Moya HPI <MELISSA Freeman - Last Filed: 02/07/24 16:17> General Chief Complaint: Shortness of Breath/Dyspnea Stated Complaint: soa, weakness Time Seen by Provider: 02/07/24 14:48 History of Present Illness HPI narrative: Patient presents for evaluation of dyspnea. Patient reports 3 days of increasing shortness of breath. Patient has a history of both COPD on chronic 2 L 14/03 as well as CHF. 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 She has been taking down from her normal diuretic dose as well as a change in her home nebulizers. Patient reports that the last time she weighed 3 days ago she weighed 205. Patient weighs 212 pounds here patient was satting in the 70s on arrival and despite increasing nasal cannula did not respond thus she was placed on a nonrebreather and is now satting at 100%. Patient denies chest pain fever chills hemoptysis hematochezia melena nausea vomiting diarrhea. Related Data Home Medications Medication Instructions Recorded Confirmed aspirin 81 mg tablet,delayed 81 mg PO DAILY 08/09/22 02/06/24 release (Adult Low Dose Aspirin) hydromorphone (PF) 1 mg/mL 1 mg SQ .COMPLEX PRN Pain 12/08/22 02/06/24 injection syringe (Dilaudid (PF)) fluticasone propionate 50 1 spray intranasal DAILYP PRN 04/04/23 02/06/24 mcg/actuation nasal Allergies spray,suspension (Flonase Allergy Relief) clobetasol 0.05 % topical ointment 0.05 applic topical DAILY 11/21/23 02/06/24 urea 45 % topical gel (ELSA-Urea) 1 applic topical BID 11/21/23 02/06/24 Previous Rx's Medication Instructions Recorded inhalational spacing device #10 ea 08/11/23 (Aerochamber MV spacer) lidocaine 5 % topical patch 1 patch topical DAILY #30 ea 11/09/23 azithromycin 250 mg tablet 250 mg PO QMWF #45 tabs 11/16/23 albuterol sulfate 90 mcg/actuation 2 puff inhalation QIDP PRN 11/21/23 aerosol inhaler Shortness Of Breath Or Wheezing #8.5 grams alprazolam 0.5 mg tablet 0.5 mg PO BIDP PRN Anxiety #60 tabs 11/21/23 colestipol 1 gram tablet 1 g PO BID PRN Diarrhea #180 tabs 11/21/23 empagliflozin 10 mg tablet 10 mg PO DAILY Heart failure 30 11/21/23 days #90 tabs escitalopram oxalate 20 mg tablet 40 mg (2 x 20 mg) PO HS Depression 11/21/23 #90 tabs omeprazole 40 mg capsule,delayed 40 mg PO BID #180 caps 11/21/23 release pramipexole 1 mg tablet 1 mg PO HS #90 tabs 11/21/23 pregabalin 150 mg capsule 150 mg PO HS Pain #90 caps 11/21/23 promethazine 25 mg tablet 25 mg PO Q6H PRN nausea and 11/21/23 vomiting #120 tabs sacubitril 24 mg-valsartan 26 mg 1 tab PO BID 30 days #180 tabs 11/21/23 tablet (Entresto) spironolactone 25 mg tablet 25 mg PO DAILY Fluid #90 tabs 11/21/23 nystatin 100,000 unit/gram topical 1 applic topical BID #60 grams 12/13/23 powder cyanocobalamin (vitamin B-12) 1,000 mcg IM MONTHLY Supplement 12/21/23 1,000 mcg/mL injection solution #10 mL syringe with needle 1 mL 21 gauge #4 ea 12/21/23 x 1 diclofenac sodium 1 % topical gel 2 g topical QID #100 grams 12/30/23 ipratropium 0.5 mg-albuterol 3 mg 3 ml inhalation Q6HP PRN Shortness 12/30/23 (2.5 mg base)/3 mL nebulization Of Breath Or Wheezing #180 mL soln furosemide 40 mg tablet 40 mg PO BID 30 days #180 tabs 01/04/24 mupirocin 2 % topical ointment 1 applic topical BID #22 grams 01/06/24 atorvastatin 20 mg tablet 20 mg PO HS Cholesterol 90 days 01/18/24 #90 tabs potassium chloride 20 mEq 20 meq PO DAILY #30 tabs 01/18/24 tablet,extended release budesonide 0.5 mg/2 mL suspension 0.5 mg (2 mL) inhalation BID 90 01/23/24 for nebulization (Pulmicort) days #360 mL ipratropium 0.5 mg-albuterol 3 mg 3 ml inhalation Q8H 3 months #540 01/23/24 (2.5 mg base)/3 mL nebulization mL soln Allergies Allergy/AdvReac Type Severity Reaction Status Date / Time moxifloxacin [From Avelox] Allergy Intermediate Rash Verified 02/06/24 14:32 ofloxacin Allergy Unknown Verified 02/06/24 14:32 allergy reaction Quinidine-Quinine Analogues Allergy Unknown Verified 02/06/24 14:32 (Cincho allergy reaction rofecoxib [From Vioxx] Allergy Unknown Verified 02/06/24 14:32 allergy reaction tramadol Allergy Unknown Verified 02/06/24 14:32 allergy reaction amoxicillin [From Amoxil] AdvReac Intermediate NAUSEA/VOMI Verified 02/06/24 14:32 TING [facility] <MELISSA Freeman - Last Filed: 02/07/24 16:17> [facility] Disclaimer: The information contained in this section may have been updated after the patient was seen, as this information can be updated by other users. 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 Hypokalemia Sore throat Leg pain Cough Dyspnea on exertion Eosinophilia Allergic rhinitis, unspecified Tobacco abuse disorder Tobacco abuse counseling Encounter for screening for malignant neoplasm of lung in current smoker with 30 pack year history or greater Chronic bronchitis Pulmonary fibrosis Lung nodule Asthma COPD (chronic obstructive pulmonary disease) Eosinophilia Allergic rhinitis Tobacco abuse counseling Tobacco abuse Encounter for screening for malignant neoplasm of lung in current smoker with 30 pack year history or greater Chronic bronchitis Pulmonary fibrosis, unspecified Lung nodule Unspecified asthma, uncomplicated Allergic rhinitis, unspecified Tobacco abuse counseling Edema Bilateral leg pain CAD (coronary artery disease) Elevated left ventricular end-diastolic pressure (LVEDP) Tobacco dependence syndrome Fatigue Atypical angina Dyspnea Abnormal cardiovascular stress test Bilateral leg pain TMJ dysfunction Fibromyalgia Bilateral low back pain with sciatica Leg pain, bilateral Obesity (BMI 30-39.9) Hyperlipidemia Hypothyroidism GERD (gastroesophageal reflux disease) COPD (chronic obstructive pulmonary disease) Neuropathy Anxiety Hypertension Surgical History History of spinal surgery History of bladder suspension procedure History of sinus surgery History of hysterectomy History of hemorrhoidectomy History of section History of cardiac cath History of colonoscopy History of arthroscopy of knee Family History Mother Hypertension Family history of acute congestive heart failure Father No problems noted. Social History Smoking Status: Former smoker tobacco type: cigarettes packs per day: 1 years smoked: 40 second hand exposure: Yes alcohol intake: never substance use type: denies use current occupational status: unemployed Travel in the last 8 weeks: None household members: spouse housing: house current occupational exposures/hazards: No caffeine: Yes bobby/jehovah's witness: Buddhist <MELISSA Freeman - Last Filed: 02/07/24 16:17> ROS Obtained: Yes Systems reviewed as appropriate & no additional complaints except as documented Physical Exam <MELISSA Freeman - Last Filed: 02/07/24 16:17> General General appearance: alert and in no apparent distress Chest Chest inspection: Present normal inspection Respiratory Respiratory exam: Present wheezes and other (Bibasilar Rales and diminished breath sounds at the base); Absent normal lung sounds bilaterally or accessory muscle use Cardiovascular Cardiovascular exam: Present regular rate and normal rhythm Abdominal Exam Abdominal exam: Present soft and normal bowel sounds; Absent tenderness, guarding, rebound or rigidity Extremities Exam Extremities exam: Present normal inspection and full ROM; Absent tenderness or edema Back Exam Back exam: Present normal inspection and full ROM Neurological Exam Neurological exam: Present alert, oriented X3 and CN II-XII intact Psychiatric Psychiatric exam: Present normal affect and normal mood Skin Skin exam: Present warm, dry and normal color HEART Score <MELISSA Freeman - Last Filed: 02/07/24 16:17> HEART Score HEART Score assessment performed?: Yes History (anamnesis): Slightly suspicious ECG: Non-specific disturbance Age: 45-65 years Risk factors: Atherosclerosis history Troponin: 1-3x normal limit HEART Score: 5 <Boo Moya MD - Last Filed: 02/07/24 22:51> HEART Score HEART Score: 5 Procedures <Boo Moya MD - Last Filed: 02/07/24 22:51> Miscellaneous Procedure Procedure Performed: Limited cardiac ultrasound Indication: Dyspnea Identified structures: The heart was visualized in the parasternal long axis, parastenal short axis, apical four chamber and subxyphiod views. The IVC was visualized in the short axis and long axis at its entry into the right atrium. Findings: LVEF is normal no pericardial effusion there is significant right heart strain which is consistent with old echoes there is one-to-one RV LV ratio in the apical 4 chamber view, IVC is dilated greater than 2 cm with no respirophasic variation Impression: Normal LVEF with significant chronic right heart systolic dysfunction and RV dilatation IVC is dilated with no respirophasic variation consistent with elevated right atrial pressures Images were saved to permanent archive The study was technically adequate CPT: 67608-70 This study was performed by id, and I personally interpreted all images/videos. Based on my clinical judgement, these images were adequate and did not necessitate further imaging. Limited lung ultrasound A focused ultrasound exam of the pleural spaces was performed to evaluate for pneumothorax, pulmonary edema, pleural effusion and/or consolidation. The ultrasound was performed with the following indications, as noted in the H&P: Dyspnea Identified structures: Right and left thoracic cavities were examined. Findings: Lungs sliding present bilateral lungs B-lines present throughout all lung galeano consistent with pulmonary edema Impression: Diffuse B-lines in all lung galeano bilaterally consistent with diffuse pulmonary edema no definitive pleural effusions Images personally to permanent archive The study was technically adequate CPT 95128-86 This study was performed by id, and I personally interpreted all images/videos. Based on my clinical judgement, these images were adequate and did not necessitate further imaging. Critical Care <MELISSA Freeman - Last Filed: 02/07/24 16:17> Critical Care Time Critical Care Time: Yes Attestation: On 02/07/24, the high probability of a clinically significant, sudden or life threatening deterioration of the following system(cardiopulmonary) required my full and direct attention, intervention and personal management. The time I documented below is in addition to time spent performing reported procedures but includes the following listed in this critical care notation. Total Time Total Critical Care Time: 30 Medical Decision Making <MELISSA Freeman - Last Filed: 02/07/24 16:17> Medical Records Medical records reviewed: Yes I reviewed the patient's medical records. Je Inquiry Pt receiving controlled substance: No Vital Signs Vital Signs: 02/07/24 14:45 02/07/24 14:46 02/07/24 15:00 Temperature 97.7 F Temperature Source Oral Pulse Rate 98 H Pulse Rate [Radial] 96 H Respiratory Rate 24 26 H Blood Pressure 113/56 L Blood Pressure [Left Arm] 109/51 L Blood Pressure Mean [Left Arm] 70 Blood Pressure Source Blood Pressure Source [Left Arm] Automatic Cuff Blood Pressure Position Blood Pressure Position [Left Arm] Sitting 02 Sat by Pulse Oximetry 67 L 100 100 Oxygen Delivery Method Nasal Cannula Non-Rebreather Non-Rebreather Oxygen Flow Rate (LPM) 2 15 02/07/24 15:16 02/07/24 15:31 02/07/24 15:43 Temperature Temperature Source Pulse Rate 85 92 H 89 Pulse Rate [Radial] Respiratory Rate Blood Pressure 85/51 L 83/55 L Blood Pressure [Left Arm] Blood Pressure Mean [Left Arm] Blood Pressure Source Blood Pressure Source [Left Arm] Blood Pressure Position Blood Pressure Position [Left Arm] 02 Sat by Pulse Oximetry 100 87 L 83 L Oxygen Delivery Method Non-Rebreather Nasal Cannula Nasal Cannula Oxygen Flow Rate (LPM) 15 5 6 02/07/24 15:45 02/07/24 15:52 02/07/24 16:00 Temperature Temperature Source Pulse Rate 90 89 88 Pulse Rate [Radial] Respiratory Rate Blood Pressure 80/46 L 96/53 L 90/56 L Blood Pressure [Left Arm] Blood Pressure Mean [Left Arm] Blood Pressure Source Blood Pressure Source [Left Arm] Blood Pressure Position Blood Pressure Position [Left Arm] 02 Sat by Pulse Oximetry 82 L 90 L 96 Oxygen Delivery Method Nasal Cannula Simple Mask Simple Mask Oxygen Flow Rate (LPM) 5 6 6 02/07/24 16:00 02/07/24 16:19 02/07/24 17:53 Temperature 97.7 F Temperature Source Oral Pulse Rate 70 86 86 Pulse Rate [Radial] Respiratory Rate 20 Blood Pressure 92/57 L 104/67 L Blood Pressure [Left Arm] Blood Pressure Mean [Left Arm] Blood Pressure Source Automatic Cuff Blood Pressure Source [Left Arm] Blood Pressure Position Sitting Blood Pressure Position [Left Arm] 02 Sat by Pulse Oximetry 98 Oxygen Delivery Method Simple Mask Nasal Cannula Oxygen Flow Rate (LPM) 6 6 Lab Data Lab results reviewed: Yes I reviewed the patient's lab results. Labs: Lab Results 02/07/24 14:51: VBG pH 7.37, VBG pCO2 45.7, VBG pO2 37.3, VBG HCO3 26.1, VBG Total CO2 27.5 H, VBG O2 Saturation 68.9, VBG Base Excess 0.8, VBG Lactic Acid 2.8 H 02/07/24 15:02: WBC 11.1 H, RBC 5.06, Hgb 10.2 L, Hct 35.3 L, MCV 69.6 L, MCH 20.2 L, MCHC 29.0 L, RDW 19.7 H, Plt Count 108 L, MPV 7.9, Neut % (Auto) 79.4, Lymph % (Auto) 13.8, Owsley % (Auto) 5.1, Eos % (Auto) 1.1, Baso % (Auto) 0.5, N eut # (Auto) 8.8 H, Lymph # (Auto) 1.5, Owsley # (Auto) 0.6, Eos # (Auto) 0.1, Baso # (Auto) 0.1, PT 11.2, INR 1.04, Sodium 128 L, Potassium 3.8, Chloride 93 L , Carbon Dioxide 32 H, Anion Gap 6.8, BUN 11, Creatinine 0.60, Estimated Creat Clear 89, Estimated GFR 101, Est GFR ( Amer) 123, Glucose 113 H, Calcium 8.5, Magnesium 1.8, Total Bilirubin 0.8, AST 31, ALT 18, Alkaline Phosphatase 85, Troponin I 0.04 H, NT-Pro-B Natriuret Pep 31459 H, Total Protein 6.6, A lbumin 3.3 L, Globulin 3.3 H, Albumin/Globulin Ratio 1.0 L 02/07/24 16:01: SARS-CoV-2 (PCR) Not detected, Influenza A Untype (PCR) Not detected, Influenza Type B (PCR) Not detected 02/07/24 15:02 02/07/24 15:02 Response Orders (Tests/Meds): ED MEDICATIONS Generic Name Dose Route Start Last Admin Trade Name Freq PRN Reason Stop Dose Admin Acetaminophen 650 mg 02/07/24 21:18 02/07/24 21:30 Acetaminophen 325mg Tab PO 03/08/24 21:17 650 mg Q4HP PRN Administration Fever or Mild Pain (1-3) Albuterol/Ipratropium 3 ml 02/08/24 00:00 Ipratropium/Albuterol 3 Ml Counts include 234 beds at the [facility] 03/09/24 00:00 Q6RT CHINO Albuterol/Ipratropium 3 ml 02/07/24 20:10 02/07/24 20:25 Ipratropium/Albuterol 3 Ml Counts include 234 beds at the [facility] 03/08/24 20:09 3 ml Q6HP PRN Administration Shortness Of Breath Alprazolam 0.5 mg 02/07/24 19:04 Alprazolam 0.5mg Tablet PO 03/08/24 19:03 BIDP PRN Anxiety Aspirin 81 mg 02/08/24 09:00 Aspirin Ec 81mg Tablet PO 03/09/24 08:59 DAILY CHINO Atorvastatin Calcium 20 mg 02/07/24 21:00 02/07/24 20:36 Atorvastatin 20mg Tablet PO 03/08/24 20:59 20 mg HS CHINO Administration Budesonide 0.5 mg 02/07/24 21:00 02/07/24 20:24 Budesonide 0.5mg/2ml Neb 03/08/24 20:59 0.5 mg BID CHINO Administration Bumetanide 1 mg 02/08/24 09:00 Bumetanide 1mg/4ml Vial IV 03/09/24 08:59 BIDL CHINO Empagliflozin 10 mg 02/08/24 09:00 Empagliflozin 10mg Tablet PO 03/09/24 08:59 DAILY CHINO Enoxaparin Sodium 40 mg 02/08/24 09:00 Enoxaparin 40mg/0.4ml Syringe SQ 03/09/24 08:59 DAILY CHINO Ceftriaxone Sodium 1 gm/ 50 mls @ 100 mls/hr 02/07/24 15:45 02/07/24 16:16 Sodium Chloride IV 02/17/24 15:44 100 mls/hr Q24H CHINO Administration Azithromycin 500 mg/ Sodium 250 mls @ 250 mls/hr 02/07/24 15:45 02/07/24 16:34 Chloride IV 02/17/24 15:44 250 mls/hr Q24H CHINO Administration Norepinephrine/Dextrose 8 mg in 250 mls @ 3.75 mls/hr 02/07/24 15:55 02/07/24 19:32 Norepinephrine 8mg/250ml-D5w Premix IV 03/08/24 15:54 Not Given .Q24H CHINO Protocol 2 MCG/MIN Lidocaine 1 each 02/08/24 09:00 Lidocaine 5% Transdermal Patch TP 03/09/24 08:59 DAILY CHINO Midodrine 5 mg 02/07/24 19:03 02/07/24 19:31 Midodrine Hcl 5 Mg Tablet PO 02/07/24 19:04 Not Given ONCE ONE Non-Formulary Medication 1 gm 02/07/24 19:04 Colestipol PO BID PRN Diarrhea Non-Formulary Medication 20 meq 02/08/24 09:00 Potassium Chloride PO 03/09/24 08:59 DAILY CHINO Non-Formulary Medication 40 mg 02/07/24 21:00 02/07/24 20:41 Escitalopram Oxalate PO 03/08/24 20:59 Not Given HS CHINO Non-Formulary Medication 150 mg 02/07/24 21:00 02/07/24 20:37 Pregabalin PO 03/08/24 20:59 150 mg HS CHINO Administration Nystatin gm 02/07/24 21:00 Nystatin Topical Powder 30gm TP 03/08/24 20:59 BID CHINO Pantoprazole Sodium 40 mg 02/07/24 21:00 02/07/24 20:36 Pantoprazole 40mg Tablet PO 03/08/24 20:59 40 mg BID CHINO Administration Pramipexole Dihydrochloride 1 mg 02/07/24 21:00 02/07/24 20:41 Pramipexole 1mg Tab PO 03/08/24 20:59 Not Given HS CHINO Discontinued Medications Generic Name Dose Route Start Last Admin Trade Name Davon PRN Reason Stop Dose Admin Acetaminophen 1,000 mg 02/07/24 14:49 02/07/24 15:25 Acetaminophen 1,000mg/100ml Vial IV 02/07/24 14:50 1,000 mg ONCE ONE Administration Albuterol/Ipratropium 3 ml 02/07/24 14:49 02/07/24 15:26 Ipratropium/Albuterol 3 Ml Neb IH 02/07/24 14:50 3 ml ONCE ONE Administration Dexamethasone Sodium Phosphate 10 mg 02/07/24 14:49 02/07/24 15:37 Dexamethasone 4mg/Ml 5ml Mdv IV 02/07/24 14:50 10 mg ONCE ONE Administration Furosemide 80 mg 02/07/24 15:02 02/07/24 15:38 Furosemide 100mg/10ml Vial IV 02/07/24 15:03 80 mg ONCE ONE Administration Lactated Ringer's 1,000 mls @ 999 mls/hr 02/07/24 14:49 02/07/24 15:49 Lactated Ringer's 1000 Ml Bag IV 02/07/24 15:49 Not Given .Q1H1M ONE Ketorolac Tromethamine 15 mg 02/07/24 14:49 02/07/24 15:37 Ketorolac 30mg/Ml Vial IV 02/07/24 14:50 15 mg ONCE ONE Administration Ondansetron HCl 4 mg 02/07/24 15:40 02/07/24 15:55 Ondansetron 4mg/2ml Vial IV 02/07/24 15:41 4 mg ONCE ONE Administration ORDERS Category Date Time Status Cardiology Consult [Consult to Cardiology] [CONS] Cons 02/07/24 16:20 Active Routine Chest XR -- portable [XR chest portable] Stat Exams 02/07/24 14:50 Completed POCUS Point of Care (ER Only) Stat Exams 02/07/24 15:43 Completed BNP [NT Pro Brain Natriuretic Pep.] Stat Lab 02/07/24 15:02 Completed CBC w/Auto Diff [Complete Blood Count Auto Diff] Stat Lab 02/07/24 15:02 Completed CMP [Comprehensive Metabolic Panel] Stat Lab 02/07/24 15:02 Completed Complete Blood Count Auto Diff AMLAB Lab 02/08/24 06:00 Ordered Comprehensive Metabolic Panel AMLAB Lab 02/08/24 06:00 Ordered INR [Prothrombin Time INR] Stat Lab 02/07/24 15:02 Completed Magnesium AMLAB Lab 02/08/24 06:00 Ordered Magnesium Stat Lab 02/07/24 15:02 Completed Rapid PCR Covid and Flu A/B Stat Lab 02/07/24 16:01 Completed Trop I [Troponin I] Stat Lab 02/07/24 15:02 Completed Troponin I Q3H Lab 02/07/24 18:37 Completed Troponin I Q3H Lab 02/07/24 21:14 Completed UA [Urinalysis and Microscopic] Stat Lab 02/07/24 18:26 Completed Blood Culture Stat Micro 02/07/24 16:08 Received VBG [Venous Blood Gas] Stat RT 02/07/24 14:51 Completed MDM Narrative Medical Decision Narrative: In summary patient is a 63-year-old female who presents to the emergency department for evaluation of dyspnea. Patient is sitting with a blood pressure of 109 /51 pulse of 96 respiratory rate of 24 satting at 100% on nonrebreather upon arrival, with a temp of 97.7. Physical exam is remarkable for end expiratory wheezes and bibasilar Rales with diminished breath sounds at the bases normal heart sounds no dependent lower extremity edema and patient does have an increased work of breathing.. Differential diagnosis includes CHF exacerbation versus COPD exacerbation versus ACS versus PE etc. Initial workup will be conducted with hematologic labs venous blood gas chest x-ray twelve-lead EKG. Initial interventions include DuoNeb Decadron Tylenol Toradol 80 of Lasix IV. Initial workup reviewed by me and my informal interpretation of her plain film chest x-ray shows volume overload with significant pulmonary edema however radiology read as no acute processes which I disagree with. Patient has a slightly elevated white count with a left shift and is not on steroids. Patient has a normal pH but a lactic acidosis on her venous blood gas and has a sodium of 128 the remainder of her laboratory investigations are nonactionable. [id number] ultrasound confirmed pulmonary edema and preserved EF. Upon repeat evaluation patient has been able to be weaned off of nonrebreather mask down to nasal cannula 6 L. Given this I had interactive discussion with hospital medicine about patient management and they have agreed for admission for further evaluation and care <Boo Moya MD - Last Filed: 02/07/24 22:51> Vital Signs Vital Signs: 02/07/24 14:45 02/07/24 14:46 02/07/24 15:00 Temperature 97.7 F Temperature Source Oral Pulse Rate 98 H Pulse Rate [Radial] 96 H Respiratory Rate 24 26 H Blood Pressure 113/56 L Blood Pressure [Left Arm] 109/51 L Blood Pressure Mean [Left Arm] 70 Blood Pressure Source Blood Pressure Source [Left Arm] Automatic Cuff Blood Pressure Position Blood Pressure Position [Left Arm] Sitting 02 Sat by Pulse Oximetry 67 L 100 100 Oxygen Delivery Method Nasal Cannula Non-Rebreather Non-Rebreather Oxygen Flow Rate (LPM) 2 15 02/07/24 15:16 02/07/24 15:31 02/07/24 15:43 Temperature Temperature Source Pulse Rate 85 92 H 89 Pulse Rate [Radial] Respiratory Rate Blood Pressure 85/51 L 83/55 L Blood Pressure [Left Arm] Blood Pressure Mean [Left Arm] Blood Pressure Source Blood Pressure Source [Left Arm] Blood Pressure Position Blood Pressure Position [Left Arm] 02 Sat by Pulse Oximetry 100 87 L 83 L Oxygen Delivery Method Non-Rebreather Nasal Cannula Nasal Cannula Oxygen Flow Rate (LPM) 15 5 6 02/07/24 15:45 02/07/24 15:52 02/07/24 16:00 Temperature Temperature Source Pulse Rate 90 89 88 Pulse Rate [Radial] Respiratory Rate Blood Pressure 80/46 L 96/53 L 90/56 L Blood Pressure [Left Arm] Blood Pressure Mean [Left Arm] Blood Pressure Source Blood Pressure Source [Left Arm] Blood Pressure Position Blood Pressure Position [Left Arm] 02 Sat by Pulse Oximetry 82 L 90 L 96 Oxygen Delivery Method Nasal Cannula Simple Mask Simple Mask Oxygen Flow Rate (LPM) 5 6 6 02/07/24 16:00 02/07/24 16:19 02/07/24 17:53 Temperature 97.7 F Temperature Source Oral Pulse Rate 70 86 86 Pulse Rate [Radial] Respiratory Rate 20 Blood Pressure 92/57 L 104/67 L Blood Pressure [Left Arm] Blood Pressure Mean [Left Arm] Blood Pressure Source Automatic Cuff Blood Pressure Source [Left Arm] Blood Pressure Position Sitting Blood Pressure Position [Left Arm] 02 Sat by Pulse Oximetry 98 Oxygen Delivery Method Simple Mask Nasal Cannula Oxygen Flow Rate (LPM) 6 6 Lab Data Labs: Lab Results 02/07/24 14:51: VBG pH 7.37, VBG pCO2 45.7, VBG pO2 37.3, VBG HCO3 26.1, VBG Total CO2 27.5 H, VBG O2 Saturation 68.9, VBG Base Excess 0.8, VBG Lactic Acid 2.8 H 02/07/24 15:02: WBC 11.1 H, RBC 5.06, Hgb 10.2 L, Hct 35.3 L, MCV 69.6 L, MCH 20.2 L, MCHC 29.0 L, RDW 19.7 H, Plt Count 108 L, MPV 7.9, Neut % (Auto) 79.4, Lymph % (Auto) 13.8, Owsley % (Auto) 5.1, Eos % (Auto) 1.1, Baso % (Auto) 0.5, N eut # (Auto) 8.8 H, Lymph # (Auto) 1.5, Owsley # (Auto) 0.6, Eos # (Auto) 0.1, Baso # (Auto) 0.1, PT 11.2, INR 1.04, Sodium 128 L, Potassium 3.8, Chloride 93 L , Carbon Dioxide 32 H, Anion Gap 6.8, BUN 11, Creatinine 0.60, Estimated Creat Clear 89, Estimated GFR 101, Est GFR ( Amer) 123, Glucose 113 H, Calcium 8.5, Magnesium 1.8, Total Bilirubin 0.8, AST 31, ALT 18, Alkaline Phosphatase 85, Troponin I 0.04 H, NT-Pro-B Natriuret Pep 64257 H, Total Protein 6.6, A lbumin 3.3 L, Globulin 3.3 H, Albumin/Globulin Ratio 1.0 L 02/07/24 16:01: SARS-CoV-2 (PCR) Not detected, Influenza A Untype (PCR) Not detected, Influenza Type B (PCR) Not detected Response Orders (Tests/Meds): ED MEDICATIONS Generic Name Dose Route Start Last Admin Trade Name Freq PRN Reason Stop Dose Admin Acetaminophen 650 mg 02/07/24 21:18 02/07/24 21:30 Acetaminophen 325mg Tab PO 03/08/24 21:17 650 mg Q4HP PRN Administration Fever or Mild Pain (1-3) Albuterol/Ipratropium 3 ml 02/08/24 00:00 Ipratropium/Albuterol 3 Ml Counts include 234 beds at the [facility] 03/09/24 00:00 Q6RT CHINO Albuterol/Ipratropium 3 ml 02/07/24 20:10 02/07/24 20:25 Ipratropium/Albuterol 3 Ml Counts include 234 beds at the [facility] 03/08/24 20:09 3 ml Q6HP PRN Administration Shortness Of Breath Alprazolam 0.5 mg 02/07/24 19:04 Alprazolam 0.5mg Tablet PO 03/08/24 19:03 BIDP PRN Anxiety Aspirin 81 mg 02/08/24 09:00 Aspirin Ec 81mg Tablet PO 03/09/24 08:59 DAILY CHINO Atorvastatin Calcium 20 mg 02/07/24 21:00 02/07/24 20:36 Atorvastatin 20mg Tablet PO 03/08/24 20:59 20 mg HS CHINO Administration Budesonide 0.5 mg 02/07/24 21:00 02/07/24 20:24 Budesonide 0.5mg/2ml Counts include 234 beds at the [facility] 03/08/24 20:59 0.5 mg BID CHINO Administration Bumetanide 1 mg 02/08/24 09:00 Bumetanide 1mg/4ml Vial IV 03/09/24 08:59 BIDL CHINO Empagliflozin 10 mg 02/08/24 09:00 Empagliflozin 10mg Tablet PO 03/09/24 08:59 DAILY CHINO Enoxaparin Sodium 40 mg 02/08/24 09:00 Enoxaparin 40mg/0.4ml Syringe SQ 03/09/24 08:59 DAILY [facility] Ceftriaxone Sodium 1 gm/ 50 mls @ 100 mls/hr 02/07/24 15:45 02/07/24 16:16 Sodium Chloride IV 02/17/24 15:44 100 mls/hr Q24H CHINO Administration Azithromycin 500 mg/ Sodium 250 mls @ 250 mls/hr 02/07/24 15:45 02/07/24 16:34 Chloride IV 02/17/24 15:44 250 mls/hr Q24H CHINO Administration Norepinephrine/Dextrose 8 mg in 250 mls @ 3.75 mls/hr 02/07/24 15:55 02/07/24 19:32 Norepinephrine 8mg/250ml-D5w Premix IV 03/08/24 15:54 Not Given .Q24H CHINO Protocol 2 MCG/MIN Lidocaine 1 each 02/08/24 09:00 Lidocaine 5% Transdermal Patch TP 03/09/24 08:59 DAILY CHINO Midodrine 5 mg 02/07/24 19:03 02/07/24 19:31 Midodrine Hcl 5 Mg Tablet PO 02/07/24 19:04 Not Given ONCE ONE Non-Formulary Medication 1 gm 02/07/24 19:04 Colestipol PO BID PRN Diarrhea Non-Formulary Medication 20 meq 02/08/24 09:00 Potassium Chloride PO 03/09/24 08:59 DAILY CHINO Non-Formulary Medication 40 mg 02/07/24 21:00 02/07/24 20:41 Escitalopram Oxalate PO 03/08/24 20:59 Not Given HS CHINO Non-Formulary Medication 150 mg 02/07/24 21:00 02/07/24 20:37 Pregabalin PO 03/08/24 20:59 150 mg HS CHINO Administration Nystatin gm 02/07/24 21:00 Nystatin Topical Powder 30gm TP 03/08/24 20:59 BID CHINO Pantoprazole Sodium 40 mg 02/07/24 21:00 02/07/24 20:36 Pantoprazole 40mg Tablet PO 03/08/24 20:59 40 mg BID CHINO Administration Pramipexole Dihydrochloride 1 mg 02/07/24 21:00 02/07/24 20:41 Pramipexole 1mg Tab PO 03/08/24 20:59 Not Given HS CHINO Discontinued Medications Generic Name Dose Route Start Last Admin Trade Name Freq PRN Reason Stop Dose Admin Acetaminophen 1,000 mg 02/07/24 14:49 02/07/24 15:25 Acetaminophen 1,000mg/100ml Vial IV 02/07/24 14:50 1,000 mg ONCE ONE Administration Albuterol/Ipratropium 3 ml 02/07/24 14:49 02/07/24 15:26 Ipratropium/Albuterol 3 Ml Neb IH 02/07/24 14:50 3 ml ONCE ONE Administration Dexamethasone Sodium Phosphate 10 mg 02/07/24 14:49 02/07/24 15:37 Dexamethasone 4mg/Ml 5ml Mdv IV 02/07/24 14:50 10 mg ONCE ONE Administration Furosemide 80 mg 02/07/24 15:02 02/07/24 15:38 Furosemide 100mg/10ml Vial IV 02/07/24 15:03 80 mg ONCE ONE Administration Lactated Ringer's 1,000 mls @ 999 mls/hr 02/07/24 14:49 02/07/24 15:49 Lactated Ringer's 1000 Ml Bag IV 02/07/24 15:49 Not Given .Q1H1M ONE Ketorolac Tromethamine 15 mg 02/07/24 14:49 02/07/24 15:37 Ketorolac 30mg/Ml Vial IV 02/07/24 14:50 15 mg ONCE ONE Administration Ondansetron HCl 4 mg 02/07/24 15:40 02/07/24 15:55 Ondansetron 4mg/2ml Vial IV 02/07/24 15:41 4 mg ONCE ONE Administration ORDERS Category Date Time Status Cardiology Consult [Consult to Cardiology] [CONS] Cons 02/07/24 16:20 Active Routine Chest XR -- portable [XR chest portable] Stat Exams 02/07/24 14:50 Completed POCUS Point of Care (ER Only) Stat Exams 02/07/24 15:43 Completed BNP [NT Pro Brain Natriuretic Pep.] Stat Lab 02/07/24 15:02 Completed CBC w/Auto Diff [Complete Blood Count Auto Diff] Stat Lab 02/07/24 15:02 Completed CMP [Comprehensive Metabolic Panel] Stat Lab 02/07/24 15:02 Completed Complete Blood Count Auto Diff AMLAB Lab 02/08/24 06:00 Ordered Comprehensive Metabolic Panel AMLAB Lab 02/08/24 06:00 Ordered INR [Prothrombin Time INR] Stat Lab 02/07/24 15:02 Completed Magnesium AMLAB Lab 02/08/24 06:00 Ordered Magnesium Stat Lab 02/07/24 15:02 Completed Rapid PCR Covid and Flu A/B Stat Lab 02/07/24 16:01 Completed Trop I [Troponin I] Stat Lab 02/07/24 15:02 Completed Troponin I Q3H Lab 02/07/24 18:37 Completed Troponin I Q3H Lab 02/07/24 21:14 Completed UA [Urinalysis and Microscopic] Stat Lab 02/07/24 18:26 Completed Blood Culture Stat Micro 02/07/24 16:08 Received VBG [Venous Blood Gas] Stat RT 02/07/24 14:51 Completed
--- NOTE | 2024-02-07 14:50 | XR_ITS ---
FINAL REPORT CLINICAL HISTORY: Shortness of breath COMPARISON: 09/24/2023 FINDINGS: No acute pulmonary opacity is present. Emphysema is noted. There are chronic appearing interstitial changes. There is no evidence of effusion or pneumothorax. Mediastinum is unremarkable. Heart size is normal. IMPRESSION: No acute abnormality. Reviewed, Interpreted and Dictated by Corey Guerrero MD Transcribed by Joslyn Ortiz Authenticated and [facility]
--- NOTE | 2024-02-07 15:15 | PC.NURSE ---
respiratory aware of vbg order
[2024-02-07 15:19] LABS: VBG Base Excess 0.8 mmol/L (-2.4-2.3); VBG HCO3 26.1 mmol/L (23-30); VBG Oxygen Saturation 68.9 % (50-70); VBG PCO2 45.7 mmol/L (35-51); VBG PH 7.37 mmol/L (7.31-7.41); VBG PO2 37.3 mmol/L (28-40); VBG Total CO2 27.5 mmol/L (23-27)
[2024-02-07 15:20] LABS: Lactate Venous 2.8 mmol/L (0.4-2.0)
[2024-02-07 15:20] LABS: Basophils # 0.1 K/mm3 (0-0.2); Basophils % 0.5 % (0.1-2.0); Eosinophils # 0.1 K/mm3 (0.0-0.4); Eosinophils % 1.1 % (0.1-12.0); Hematocrit 35.3 % (37.0-47.0); Hemoglobin 10.2 g/dL (12.2-16.2); Lymphocytes # 1.5 K/mm3 (0.7-4.5); Lymphocytes % 13.8 % (10-50); Mean Corpuscular Hemoglobin 20.2 pg (27.0-31.2); Mean Corpuscular Volume 69.6 fl (81-99); Mean Platelet Volume 7.9 fl (7.4-10.4); Monocytes # 0.6 K/mm3 (0.1-1.0); Monocytes % 5.1 % (1.7-9.3); Neutrophils # 8.8 K/mm3 (1.8-7.8); Neutrophils % 79.4 % (37.0-80.0); Platelet Count 108 K/mm3 (142-424); Red Blood Count 5.06 M/mm3 (4.20-5.40); Red Cell Distribution Width 19.7 % (11.5-17.5); White Blood Count 11.1 K/mm3 (4.8-10.8)
--- NOTE | 2024-02-07 15:22 | ECG_ITS ---
APPROVED REPORT Exam: Resting ECG HR:84 bpm ECG Measurements Heart Rate 84 AXES DC 149 P 76 QRSd 98 QRS 84 QT 384 T 40 QTc 425 Conclusion SINUS RHYTHM WITH OCCASIONAL VENTRICULAR PREMATURE COMPLEXES POSSIBLE RIGHT ATRIAL ENLARGEMENT [0.25mV P-WAVE] LOW QRS VOLTAGE IN PRECORDIAL LEADS [QRS DEFLECTION < 1.0 mV IN CHEST LEADS] INCOMPLETE RIGHT BUNDLE BRANCH BLOCK [90+ ms QRS DURATION, TERMINAL R IN V1/V2, 40+ ms S IN I/aVL/V4/V5/V6] MODERATE ST DEPRESSION [0.05+ mV ST DEPRESSION] ABNORMAL ECG UNCONFIRMED REPORT Electronically signed by : Yosvany Moya, 02/07/2024 22:53:23
[2024-02-07] MEDS: ACETAMINOPHEN 1,000MG/100ML VIAL 1000 MG IV (15:25)
[2024-02-07 15:26] LABS: INR 1.04 (0.9-1.1); Prothrombin Time 11.2 seconds (10.1-12.5)
[2024-02-07] MEDS: IPRATROPIUM/ALBUTEROL 3 ML NEB IH ×2 (15:26→20:25)
[2024-02-07 15:36] LABS: Chloride 93 mmol/L (98-107); Potassium 3.8 mmoL/L (3.5-5.1); Sodium 128 mmol/L (136-145)
[2024-02-07] MEDS: KETOROLAC 30MG/ML VIAL 15 MG IV (15:37)
[2024-02-07] MEDS: DEXAMETHASONE 4MG/ML 5ML MDV 10 MG IV (15:37)
[2024-02-07 15:38] LABS: Blood Urea Nitrogen 11 mg/dl (7-17); Creatinine Clearance Estimated 89 mL/min (50-200); Estimated Glomerular Filt Rate 101 ml/min (>60); GFR (African American) 123 ML/MIN (>60)
[2024-02-07] MEDS: FUROSEMIDE 100MG/10ML VIAL 80 MG IV (15:38)
[2024-02-07 15:39] LABS: Alanine Aminotransferase 18 U/L (12-78); Albumin Level 3.3 g/dl (3.5-5.0); Alkaline Phosphatase 85 U/L (38-126); Anion Gap 6.8 mEq/L (5-15); Aspartate Amino Transferase 31 U/L (14-36); Bilirubin,Total 0.8 mg/dl (0.2-1.3); Calcium 8.5 mg/dl (8.4-10.2); Carbon Dioxide 32 mmol/L (22.0-30.0); Globulin 3.3 g/dL (1.3-3.2); Glucose 113 mg/dl (74-100); Magnesium 1.8 mg/dl (1.6-2.3); Total Protein,Serum 6.6 g/dl (6.3-8.2)
[2024-02-07 15:49] LABS: NT Pro Brain Natriuretic Pep. 22500 pg/mL (0-125)
[2024-02-07 15:51] LABS: Troponin I 0.04 ng/ml (0.00-0.034)
[2024-02-07] MEDS: ONDANSETRON 4MG/2ML VIAL 4 MG IV (15:55)
[2024-02-07 16:05] LABS: Coronavirus 19, PCR Not Detected (NotDetected); Influenza A, PCR Not Detected (NotDetected); Influenza B, PCR Not Detected (NotDetected)
[2024-02-07] MEDS: CEFTRIAXONE SODIUM 1 GM in 0.9 % SODIUM CHLORIDE 50 ML IV (16:16)
--- NOTE | 2024-02-07 16:18 | P.HP_ITS ---
History of Present Illness *Admission Date: 02/07/24 *Reason for visit:: Dyspnea *History of present illness: Ms. Woods is a 63-year-old female with extensive history of heart failure and COPD. On chronic oxygen of 2 L. Follows with cardiology and pulmonology at [facility]. She presented to the ER with worsening dyspnea over the past 3 days. Reports she has had a mildly productive cough for many months. Denies any chest pain. He was frankly hypoxic on arrival to the ER. Necessitated nonrebreather. Attempts to wean oxygen with O2 sats dropping into the mid 80s. Workup in the ER with BNP of 22,000, chest imaging concerning for pulmonary edema. Strong concern for acute exacerbation of CHF. Weight up per chart review. Diuresed with IV Lasix x 1. Medicine was consulted for admission. Patient denies fevers, nausea, vomiting, hemoptysis. On arrival to the floor, she is alert and oriented x 4. Appears at her baseline mentation. Necessitating 5 to 6 L nasal cannula. Stating she is feeling somewhat better after having increased urine output. [facility] Disclaimer: The information contained in this section may have been updated after the patient was seen, as this information can be updated by other users. Medical History Dysphagia Elevated liver enzymes Pulmonary hypertension Right ventricular failure Elevated troponin Pneumonia Acute and chronic respiratory failure with hypoxia Anxiety Depression Hyperlipidemia Rectal prolapse Pneumonia Cataract CHF (congestive heart failure) COPD (chronic obstructive pulmonary disease) Pulmonary hypertension Stenosis of carotid artery Shortness of Breath Osteoarthritis Fibromyalgia History of gastroesophageal reflux (GERD) Congestive heart failure COPD mixed type Eosinophilia Tobacco abuse counseling Screening for lung cancer skilled nursing current use of diuretic Hypokalemia Sore throat Leg pain Cough Dyspnea on exertion Eosinophilia Allergic rhinitis, unspecified Tobacco abuse disorder Tobacco abuse counseling Encounter for screening for malignant neoplasm of lung in current smoker with 30 pack year history or greater Chronic bronchitis Pulmonary fibrosis Lung nodule Asthma COPD (chronic obstructive pulmonary disease) Eosinophilia Allergic rhinitis Tobacco abuse counseling Tobacco abuse Encounter for screening for malignant neoplasm of lung in current smoker with 30 pack year history or greater Chronic bronchitis Pulmonary fibrosis, unspecified Lung nodule Unspecified asthma, uncomplicated Allergic rhinitis, unspecified Tobacco abuse counseling Edema Bilateral leg pain CAD (coronary artery disease) Elevated left ventricular end-diastolic pressure (LVEDP) Tobacco dependence syndrome Fatigue Atypical angina Dyspnea Abnormal cardiovascular stress test Bilateral leg pain TMJ dysfunction Fibromyalgia Bilateral low back pain with sciatica Leg pain, bilateral Obesity (BMI 30-39.9) Hyperlipidemia Hypothyroidism GERD (gastroesophageal reflux disease) COPD (chronic obstructive pulmonary disease) Neuropathy Anxiety Hypertension Surgical History History of spinal surgery History of bladder suspension procedure History of sinus surgery History of hysterectomy History of hemorrhoidectomy History of section History of cardiac cath History of colonoscopy History of arthroscopy of knee Family History Mother Hypertension Family history of acute congestive heart failure Father No problems noted. Social History Smoking Status: Former smoker tobacco type: cigarettes packs per day: 1 years smoked: 40 second hand exposure: Yes alcohol intake: never substance use type: denies use current occupational status: unemployed Travel in the last 8 weeks: None household members: spouse housing: house current occupational exposures/hazards: No caffeine: Yes bobby/caodaism: Bahai Review of Systems Review of Systems Review of systems (narrative): 14 point review of systems performed, pertinent positives and negatives as per HPI Meds Home Medications and Allergies Home Medications Medication Instructions Recorded Confirmed Type aspirin 81 mg tablet,delayed 81 mg PO DAILY 08/09/22 02/06/24 History release (Adult Low Dose Aspirin) hydromorphone (PF) 1 mg/mL 1 mg SQ .COMPLEX PRN Pain 12/08/22 02/06/24 History injection syringe (Dilaudid (PF)) fluticasone propionate 50 1 spray intranasal DAILYP PRN 04/04/23 02/06/24 History mcg/actuation nasal Allergies spray,suspension (Flonase Allergy Relief) inhalational spacing device #10 ea 08/11/23 02/01/24 Rx (Aerochamber MV spacer) lidocaine 5 % topical patch 1 patch topical DAILY #30 ea 11/09/23 02/06/24 Rx azithromycin 250 mg tablet 250 mg PO QMWF #45 tabs 11/16/23 02/06/24 Rx albuterol sulfate 90 mcg/actuation 2 puff inhalation QIDP PRN 11/21/23 02/06/24 Rx aerosol inhaler Shortness Of Breath Or Wheezing #8.5 grams alprazolam 0.5 mg tablet 0.5 mg PO BIDP PRN Anxiety #60 tabs 11/21/23 02/06/24 Rx clobetasol 0.05 % topical ointment 0.05 applic topical DAILY 11/21/23 02/06/24 History colestipol 1 gram tablet 1 g PO BID PRN Diarrhea #180 tabs 11/21/23 02/01/24 Rx empagliflozin 10 mg tablet 10 mg PO DAILY Heart failure 30 11/21/23 02/06/24 Rx days #90 tabs escitalopram oxalate 20 mg tablet 40 mg (2 x 20 mg) PO HS Depression 11/21/23 02/06/24 Rx #90 tabs omeprazole 40 mg capsule,delayed 40 mg PO BID #180 caps 11/21/23 02/06/24 Rx release pramipexole 1 mg tablet 1 mg PO HS #90 tabs 11/21/23 02/06/24 Rx pregabalin 150 mg capsule 150 mg PO HS Pain #90 caps 11/21/23 02/06/24 Rx promethazine 25 mg tablet 25 mg PO Q6H PRN nausea and 11/21/23 02/06/24 Rx vomiting #120 tabs sacubitril 24 mg-valsartan 26 mg 1 tab PO BID 30 days #180 tabs 11/21/23 02/06/24 Rx tablet (Entresto) spironolactone 25 mg tablet 25 mg PO DAILY Fluid #90 tabs 11/21/23 02/06/24 Rx urea 45 % topical gel (ELSA-Urea) 1 applic topical BID 11/21/23 02/06/24 History nystatin 100,000 unit/gram topical 1 applic topical BID #60 grams 12/13/23 02/06/24 Rx powder cyanocobalamin (vitamin B-12) 1,000 mcg IM MONTHLY Supplement 12/21/23 02/06/24 Rx 1,000 mcg/mL injection solution #10 mL syringe with needle 1 mL 21 gauge #4 ea 12/21/23 02/01/24 Rx x 1 diclofenac sodium 1 % topical gel 2 g topical QID #100 grams 12/30/23 02/06/24 Rx ipratropium 0.5 mg-albuterol 3 mg 3 ml inhalation Q6HP PRN Shortness 12/30/23 02/06/24 Rx (2.5 mg base)/3 mL nebulization Of Breath Or Wheezing #180 mL soln furosemide 40 mg tablet 40 mg PO BID 30 days #180 tabs 01/04/24 02/06/24 Rx mupirocin 2 % topical ointment 1 applic topical BID #22 grams 01/06/24 02/06/24 Rx atorvastatin 20 mg tablet 20 mg PO HS Cholesterol 90 days 01/18/24 02/06/24 Rx #90 tabs potassium chloride 20 mEq 20 meq PO DAILY #30 tabs 01/18/24 02/06/24 Rx tablet,extended release budesonide 0.5 mg/2 mL suspension 0.5 mg (2 mL) inhalation BID 90 01/23/24 02/06/24 Rx for nebulization (Pulmicort) days #360 mL ipratropium 0.5 mg-albuterol 3 mg 3 ml inhalation Q8H 3 months #540 01/23/24 02/06/24 Rx (2.5 mg base)/3 mL nebulization mL soln New Prescriptions to Start Prescriptions: Allergies Allergy/AdvReac Type Severity Reaction Status Date / Time moxifloxacin [From Avelox] Allergy Intermediate Rash Verified 02/06/24 14:32 ofloxacin Allergy Unknown Verified 02/06/24 14:32 allergy reaction Quinidine-Quinine Analogues Allergy Unknown Verified 02/06/24 14:32 (Cincho allergy reaction rofecoxib [From Vioxx] Allergy Unknown Verified 02/06/24 14:32 allergy reaction tramadol Allergy Unknown Verified 02/06/24 14:32 allergy reaction amoxicillin [From Amoxil] AdvReac Intermediate NAUSEA/VOMI Verified 02/06/24 14:32 TING Exam Data for Last 24 hours Vital signs and Labs for Last 24 Hours: Temp Pulse Resp BP Pulse Ox O2 Del Method 97.7 F 96 H 24 109/51 L 100 Non-Rebreather 02/07/24 14:46 02/07/24 14:46 02/07/24 14:46 02/07/24 14:46 02/07/24 14:46 02/07/24 14:46 Laboratory Results - last 24 hr 02/07/24 14:51: VBG pH 7.37, VBG pCO2 45.7, VBG pO2 37.3, VBG HCO3 26.1, VBG Total CO2 27.5 H, VBG O2 Saturation 68.9, VBG Base Excess 0.8, VBG Lactic Acid 2.8 H 02/07/24 15:02: WBC 11.1 H, RBC 5.06, Hgb 10.2 L, Hct 35.3 L, MCV 69.6 L, MCH 20.2 L, MCHC 29.0 L, RDW 19.7 H, Plt Count 108 L, MPV 7.9, Neut % (Auto) 79.4, Lymph % (Auto) 13.8, [place] % (Auto) 5.1, Eos % (Auto) 1.1, Baso % (Auto) 0.5, Neut # (Auto) 8.8 H, Lymph # (Auto) 1.5, [place] # (Auto) 0.6, Eos # (Auto) 0.1, Baso # (Auto) 0.1, PT 11.2, INR 1.04, Sodium 128 L, Potassium 3.8, Chloride 93 L , Carbon Dioxide 32 H, Anion Gap 6.8, BUN 11, Creatinine 0.60, Estimated Creat Clear 89, Estimated GFR 101, Est GFR ( Amer) 123, Glucose 113 H, Calcium 8.5, Magnesium 1.8, Total Bilirubin 0.8, AST 31, ALT 18, Alkaline Phosphatase 85, Troponin I 0.04 H, NT-Pro-B Natriuret Pep 67216 H, Total Protein 6.6, Albumin 3.3 L, Globulin 3.3 H, Albumin/Globulin Ratio 1.0 L I & O for Last 24 hours: Intake & Output 02/04/24 02/05/24 02/06/24 02/07/24 23:59 23:59 23:59 23:59 Weight 96.162 kg Constitutional Constitutional: no acute distress, obese, chronically ill appearing and cooperative *Routine HEENT Exam Head: Present normocephalic Eye: Present EOMI ENT: Present mucous membranes dry *Routine Neck Exam Neck: Present full ROM *Routine Respiratory Exam Respiratory: Present prolonged expiratory phase, wheezes and normal respiratory effort; Absent rhonchi or crackles *Routine Cardiovascular Exam Cardiovascular: Present RRR and irregular rhythm *Routine Abdominal Exam Abdominal: Present soft and tenderness *Routine Rectal Exam Rectal:: deferred *Routine Genitalia Exam Genitalia:: deferred *Routine Extremities Exam Extremities: Present full ROM; Absent edema *Routine Skin Exam Skin: Present intact and jaundice; Absent cyanosis or erythema *Routine Neurological Exam Neurological: Present alert, oriented X3 and moving all extremities; Absent altered mental status Assessment and Plan *Assessment and plan (1) Acute exacerbation of CHF (congestive heart failure): Status: Acute Qualifiers: Heart failure type: unspecified Qualified Code(s): I50.9 - Heart failure, unspecified Category: Medical Code(s): I50.9 - Heart failure, unspecified (2) Acute on chronic hypoxic respiratory failure: Status: Acute Category: Medical Code(s): J96.21 - Acute and chronic respiratory failure with hypoxia (3) Pulmonary arterial hypertension: Status: Acute Category: Medical Code(s): I27.21 - Secondary pulmonary arterial hypertension (4) COPD (chronic obstructive pulmonary disease): Status: Acute Qualifiers: COPD type: unspecified COPD Qualified Code(s): J44.9 - Chronic obstructive pulmonary disease, unspecified Category: Medical Code(s): J44.9 - Chronic obstructive pulmonary disease, unspecified (5) (HFpEF) heart failure with preserved ejection fraction: Status: Chronic Qualifiers: Heart failure chronicity: chronic Qualified Code(s): I50.32 - Chronic diastolic (congestive) heart failure Category: Medical Code(s): I50.30 - Unspecified diastolic (congestive) heart failure (6) 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 Category: Medical Code(s): G47.33 - Obstructive sleep apnea (adult) (pediatric); J44.9 - Chronic obstructive pulmonary disease, unspecified (7) HLD (hyperlipidemia): Status: Chronic Qualifiers: Hyperlipidemia type: unspecified Qualified Code(s): E78.5 - Hyperlipidemia, unspecified Category: Medical Code(s): E78.5 - Hyperlipidemia, unspecified (8) Pulmonary fibrosis: Status: Chronic Category: Medical Code(s): J84.10 - Pulmonary fibrosis, unspecified Plan 63-year-old female with extensive history of chronic lung disease and heart failure. Presented with hypoxia and increased oxygen requirement from baseline. Workup in the ER concerning for acute on chronic heart failure with acute on chronic hypoxia. Discussed case with ER physician, request admission for diuresis, monitoring of blood pressure, cardiology consult. I agreed to admit for further management. On 5 to 6 L by the time of arrival to the floor. Baseline 2 L. Blood pressure soft but MAP still above 65. Denies any chest pain. Problems addressed as follows: Acute on chronic hypoxemic respiratory failure Acute on chronic heart failure with preserved ejection fraction -BNP greater than 22,000. Lasix 80 mg IV x 1 in the ER. Having response with diuresis -Wean oxygen as tolerated, goal sats greater 90%. Currently on 5 L. -Blood pressure soft with MAP greater than 65. Will administer single dose of midodrine 5 mg p.o. Holding Entresto and spironolactone -Continue Jardiance 10 mg daily -Bumex 1 mg twice daily to start in the morning -Cardiology consulted to assist with care. -Concern for pulmonary edema versus pneumonia on chest imaging per my review. Continue azithromycin and ceftriaxone. -DuoNebs every 6 hours scheduled budesonide twice daily Anxiety continue Xanax 0.5 mg daily as needed Hyperlipidemia: Continue Lipitor 20 mg nightly Continue Lyrica 150 mg nightly for pain Continue pramipexole 1 mg nightly for sleep and tremor Chronic anemia stable with hemoglobin of 10.2. Platelets low at 108. Caution with DVT prophylaxis, monitor platelets daily. Will hold DVT prophylaxis if platelets drop below 100. Chronic hyponatremia with sodium of 128, chloride 93. CBC, CMP and magnesium ordered for the morning Full code Prophylactic Lovenox Cardiac diet
--- NOTE | 2024-02-07 16:18 | PC.NURSE ---
Bakari Zamora PA-C s/w Dr. Gant for admission. He accepts pt. grocery supervisor notified of admission. Bed Request order placed.
--- NOTE | 2024-02-07 16:21 | PC.NURSE ---
House notified of admission. Patient will go to room 206.
[2024-02-07] MEDS: AZITHROMYCIN 500 MG in 0.9 % SODIUM CHLORIDE 250 ML 250 MG IV (16:34)
--- NOTE | 2024-02-07 17:15 | PC.NURSE ---
Called dietary to get patient a meal tray per request.
--- NOTE | 2024-02-07 17:45 | PC.NURSE ---
Meal tray given to patient.
--- NOTE | 2024-02-07 17:51 | PC.NURSE ---
Report called to Med Surg.
[2024-02-07 18:36] LABS: Microscopic, Urine URINE MICROSCOPIC (MICROSCOPIC)
--- NOTE | 2024-02-07 18:38 | PC.NURSE ---
Patient unable to remember all medications
[2024-02-07 18:44] LABS: Appearance,Urine CLEAR (Clear); Bilirubin,Urine Negative (Negative); Blood, Urine Negative (Negative); Color,Urine YELLOW (Yellow); Glucose,Urine (UA) 2+ (Negative); Ketones,Urine Negative (Negative); Leukocyte Esterase,Urine Negative (Negative); Nitrate,Urine Negative (Negative); PH,Urine 5.5 (5.0-8.5); Protein,Urine Negative (Negative); Specific Gravity, Urine <= 1.005 (1.005-1.030); Urobilinogen,Urine 0.2 EU/dl (0.2)
--- NOTE | 2024-02-07 18:59 | PC.NURSE ---
Administered 5mg midodrine to patient per Dr. Gant verbal order. Midodrine 5mg tablet verified with Marylu Barakat RN before administration.
[2024-02-07 19:13] LABS: Troponin I 0.04 ng/ml (0.00-0.034)
[2024-02-07 19:20] LABS: Reflex Lactic Add Lactic Reflex
[2024-02-07 19:42] LABS: Lactic Acid Follow Up (RFLX 1) 2.8 mmol/L (0.7-2.1)
[2024-02-07] MEDS: BUDESONIDE 0.5MG/2ML NEB 0.5 MG IH (20:24)
[2024-02-07] MEDS: ATORVASTATIN 20MG TABLET 20 MG PO (20:36)
[2024-02-07] MEDS: PANTOPRAZOLE 40MG TABLET 40 MG PO (20:36)
[2024-02-07] MEDS: PATIENT'S OWN HOME MEDICATION (Pregabalin 150 mg capsule) 150 EACH PO (20:37)
[2024-02-07 21:23] LABS: Reflex Lactic (2 hrs) Add Lactic Reflex
[2024-02-07] MEDS: ACETAMINOPHEN 325MG TAB 650 MG PO (21:30)
--- NOTE | 2024-02-07 21:35 | PC.WOUNDNOTE ---
Right gluteus, stage 2 ulceration
[2024-02-07 22:17] LABS: Troponin I 0.02 ng/ml (0.00-0.034)
[2024-02-07 22:30] LABS: Lactic Acid Follow up (RFLX 2) 1.2 mmol/L (0.7-2.1)
[2024-02-08] VITALS (15 sets, daily range): BP systolic 94–132; BP diastolic 55–77; PULSE 63–110; RESP 18–22; TEMP 36.6–36.9; O2SAT 90–100
[2024-02-08] MEDS: IPRATROPIUM/ALBUTEROL 3 ML NEB IH ×4 (00:11→18:19)
--- NOTE | 2024-02-08 05:47 | PC.NURSE ---
Patient alert and oriented x4 through shift. Maintained 4-6L NC through night to maintain O2 stats in 90s. Patient currently at 4L and resting well. Bilateral wheezes and deminished throughout. MAP maintained above 65 during shift. Levophed on hold. VSS. Call light within reach.
[2024-02-08] MEDS: BUDESONIDE 0.5MG/2ML NEB 0.5 MG IH ×2 (06:06→18:19)
[2024-02-08 06:50] LABS: Basophils % 0.1 % (0.1-2.0); Eosinophils % 0.1 % (0.1-12.0); Hematocrit 32.5 % (37.0-47.0); Hemoglobin 9.3 g/dL (12.2-16.2); Lymphocytes # 0.5 K/mm3 (0.7-4.5); Lymphocytes % 9.9 % (10-50); Mean Corpuscular HGB Conc 28.6 g/dL (31.8-35.4); Mean Corpuscular Hemoglobin 20.1 pg (27.0-31.2); Mean Corpuscular Volume 70.2 fl (81-99); Mean Platelet Volume 8.1 fl (7.4-10.4); Monocytes # 0.1 K/mm3 (0.1-1.0); Monocytes % 2.3 % (1.7-9.3); Neutrophils % 87.5 % (37.0-80.0); Platelet Count 109 K/mm3 (142-424); Red Blood Count 4.62 M/mm3 (4.20-5.40); Red Cell Distribution Width 19.5 % (11.5-17.5); White Blood Count 4.6 K/mm3 (4.8-10.8)
[2024-02-08 06:58] LABS: Chloride 95 mmol/L (98-107)
[2024-02-08 06:59] LABS: MANUAL DIFFERENTIAL MANUAL DIFFERENTIAL (MANUAL DIFF); Potassium 3.4 mmoL/L (3.5-5.1); Sodium 131 mmol/L (136-145)
[2024-02-08 07:01] LABS: Alanine Aminotransferase 17 U/L (12-78); Aspartate Amino Transferase 20 U/L (14-36); Bilirubin,Total 0.4 mg/dl (0.2-1.3); Blood Urea Nitrogen 9 mg/dl (7-17); Creatinine Clearance Estimated 90 mL/min (50-200); Estimated Glomerular Filt Rate 125 ml/min (>60); GFR (African American) 151 ML/MIN (>60)
[2024-02-08 07:02] LABS: Albumin Level 2.9 g/dl (3.5-5.0); Alkaline Phosphatase 79 U/L (38-126); Anion Gap 6.4 mEq/L (5-15); Calcium 8.5 mg/dl (8.4-10.2); Carbon Dioxide 33 mmol/L (22.0-30.0); Glucose 139 mg/dl (74-100); Magnesium 1.9 mg/dl (1.6-2.3); Total Protein,Serum 5.9 g/dl (6.3-8.2)
--- NOTE | 2024-02-08 08:49 | PC.NURSE ---
0815 o2 decreased to 4lpm
[2024-02-08 09:19] LABS: Lymphocytes % 10 % (10-50); Monocytes % 3 % (2-9); Neutrophils % 87 % (42-76); Total Cells Counted 100
[2024-02-08 09:20] LABS: Hypochromasia 2+; Platelet Estimate Slight Decrease
[2024-02-08] MEDS: ACETAMINOPHEN 325MG TAB 650 MG PO (09:37)
[2024-02-08] MEDS: ASPIRIN EC 81MG TABLET 81 MG PO (09:58)
[2024-02-08] MEDS: EMPAGLIFLOZIN 10MG TABLET 10 MG PO (09:59)
[2024-02-08] MEDS: PANTOPRAZOLE 40MG TABLET 40 MG PO ×2 (10:00→20:32)
[2024-02-08] MEDS: POTASSIUM CHLORIDE 20MEQ TAB 20 MEQ PO ×3 (10:00→20:32)
[2024-02-08] MEDS: ENOXAPARIN 40MG/0.4ML SYRINGE 40 MG SQ (10:01)
[2024-02-08] MEDS: LIDOCAINE 5% TRANSDERMAL PATCH 1 EACH TP (10:02)
[2024-02-08] MEDS: BUMETANIDE 1MG/4ML VIAL 1 MG IV ×2 (10:03→17:11)
[2024-02-08] MEDS: NYSTATIN TOPICAL POWDER 30GM TP ×2 (10:04→20:34)
[2024-02-08] MEDS: ALPRAZolam 0.5MG TABLET 0.5 MG PO (10:39)
--- NOTE | 2024-02-08 11:12 | EXP.CARD.CON ---
History of Present Illness History of Present Illness Consult date: 02/08/24 Requesting physician: Yosvany Gant Consult reason: congestive heart failure Chief complaint: SOA Additional Medical History:: 1. HFpEF A. Echo, 12/2023, EF 55%, increased LV wall thickness, no regional WMA. Septal flattening noted. Mod-severe RV dilation with moderately reduced RV function. Increased RV wall thickness. B. Echo, 10/16/2022, EF 55%, mod-severe RV dilatation with moderate RV dysfunction. Septal flattening. RVSP > 60 mmHg 2. Normal coronaries, 08/30/2023 3. TOMER/COPD/emphysema/right heart failure/Pulmonary HTN A. on BiPAP, followed by Dr. Louie 4. Hypertension A. Echo, 12/2023, EF 55%, increased LV wall thickness, no regional WMA. Septal flattening noted. Mod-severe RV dilation with moderately reduced RV function. Increased RV wall thickness. 5. Hyperlipidemia A. LDL 38, on statin 6. WILLIAM A. CNI, 11/2020, bilateral 20-49% ICA stenosis 7. DDD of lumbar spine with radiculopathy A. Pain pump in situ History of present illness: Ms. Woods is a 63-year-old female with extensive history of heart failure and COPD. On chronic oxygen of 2 L. Follows with cardiology and pulmonology at [facility]. She presented to the ER with worsening dyspnea over the past 3 days. Reports she has had a mildly productive cough for many months. Denies any chest pain. She was frankly hypoxic on arrival to the ER. Necessitated nonrebreather. Attempts to wean oxygen with O2 sats dropping into the mid 80s. Workup in the ER with BNP of 22,000, chest imaging concerning for pulmonary edema. Strong concern for acute exacerbation of CHF. Weight up per chart review. Diuresed with IV Lasix x 1. Medicine was consulted for admission. Patient denies fevers, nausea, vomiting, hemoptysis. The above per Dr. Gant Events as noted above confirmed with the patient. She recently had her diuretics and decreased last month due to recurrent hypotension. In conjunction with that she has recently increased her soda intake couple days prior to the onset of her edema and shortness of breath. Patient is breathing better this morning after diuresis yesterday. BNP noted to be 22,500 Chest x-ray shows emphysema with no acute abnormality. No evidence of effusion or pneumothorax. Troponins normal [facility] Disclaimer: The information contained in this section may have been updated after the patient was seen, as this information can be updated by other users. Medical History Dysphagia Elevated liver enzymes Pulmonary hypertension Right ventricular failure Elevated troponin Pneumonia Acute and chronic respiratory failure with hypoxia Anxiety Depression Hyperlipidemia Rectal prolapse Pneumonia Cataract CHF (congestive heart failure) COPD (chronic obstructive pulmonary disease) Pulmonary hypertension Stenosis of carotid artery Shortness of Breath Osteoarthritis Fibromyalgia History of gastroesophageal reflux (GERD) Congestive heart failure COPD mixed type Eosinophilia Tobacco abuse counseling Screening for lung cancer prison current use of diuretic Hypokalemia Sore throat Leg pain Cough Dyspnea on exertion Eosinophilia Allergic rhinitis, unspecified Tobacco abuse disorder Tobacco abuse counseling Encounter for screening for malignant neoplasm of lung in current smoker with 30 pack year history or greater Chronic bronchitis Pulmonary fibrosis Lung nodule Asthma COPD (chronic obstructive pulmonary disease) Eosinophilia Allergic rhinitis Tobacco abuse counseling Tobacco abuse Encounter for screening for malignant neoplasm of lung in current smoker with 30 pack year history or greater Chronic bronchitis Pulmonary fibrosis, unspecified Lung nodule Unspecified asthma, uncomplicated Allergic rhinitis, unspecified Tobacco abuse counseling Edema Bilateral leg pain CAD (coronary artery disease) Elevated left ventricular end-diastolic pressure (LVEDP) Tobacco dependence syndrome Fatigue Atypical angina Dyspnea Abnormal cardiovascular stress test Bilateral leg pain TMJ dysfunction Fibromyalgia Bilateral low back pain with sciatica Leg pain, bilateral Obesity (BMI 30-39.9) Hyperlipidemia Hypothyroidism GERD (gastroesophageal reflux disease) COPD (chronic obstructive pulmonary disease) Neuropathy Anxiety Hypertension Surgical History History of spinal surgery History of bladder suspension procedure History of sinus surgery History of hysterectomy History of hemorrhoidectomy History of section History of cardiac cath History of colonoscopy History of arthroscopy of knee Family History Mother Hypertension Family history of acute congestive heart failure Father No problems noted. Social History Smoking Status: Former smoker tobacco type: cigarettes packs per day: 1 years smoked: 40 second hand exposure: Yes alcohol intake: never substance use type: denies use current occupational status: unemployed Travel in the last 8 weeks: None household members: spouse housing: house current occupational exposures/hazards: No caffeine: Yes bobby/baptism: [employer] Review of Systems Review of Systems Review of systems:: pertinent systems reviewed and negative unless documented below *Cardiovascular Cardiovascular: Reports dyspnea, Reports dyspnea on exertion and Reports leg edema *Respiratory Respiratory: Reports dyspnea and Reports dyspnea on exertion Exam Data for Last 24 hours Vital signs and Labs for Last 24 Hours: Temp Pulse Resp BP Pulse Ox O2 Del Method O2 Flow Rate 98.5 F 78 20 107/61 L 98 Nasal Cannula 4 02/08/24 08:00 02/08/24 11:04 02/08/24 04:00 02/08/24 04:00 02/08/24 10:25 02/08/24 10:25 02/08/24 10:25 Laboratory Results - last 24 hr 02/07/24 14:51: VBG pH 7.37, VBG pCO2 45.7, VBG pO2 37.3, VBG HCO3 26.1, VBG Total CO2 27.5 H, VBG O2 Saturation 68.9, VBG Base Excess 0.8, VBG Lactic Acid 2.8 H 02/07/24 15:02: WBC 11.1 H, RBC 5.06, Hgb 10.2 L, Hct 35.3 L, MCV 69.6 L, MCH 20.2 L, MCHC 29.0 L, RDW 19.7 H, Plt Count 108 L, MPV 7.9, Neut % (Auto) 79.4, Lymph % (Auto) 13.8, [place] % (Auto) 5.1, Eos % (Auto) 1.1, Baso % (Auto) 0.5, Neut # (Auto) 8.8 H, Lymph # (Auto) 1.5, [place] # (Auto) 0.6, Eos # (Auto) 0.1, Baso # (Auto) 0.1, PT 11.2, INR 1.04, Sodium 128 L, Potassium 3.8, Chloride 93 L, Carbon Dioxide 32 H, Anion Gap 6.8, BUN 11, Creatinine 0.60, Estimated Creat Clear 89, Estimated GFR 101, Est GFR ( Amer) 123, Glucose 113 H, Calcium 8.5, Magnesium 1.8, Total Bilirubin 0.8, AST 31, ALT 18, Alkaline Phosphatase 85, Troponin I 0.04 H, NT-Pro-B Natriuret Pep 86625 H, Total Protein 6.6, Albumin 3.3 L, Globulin 3.3 H, Albumin/Globulin Ratio 1.0 L 02/07/24 16:01: SARS-CoV-2 (PCR) Not detected, Influenza A Untype (PCR) Not detected, Influenza Type B (PCR) Not detected 02/07/24 18:26: Urine Color Yellow, Urine Appearance Clear, Urine pH 5.5, Ur Specific [place] <= 1.005, Urine Protein Negative, Urine Glucose (UA) 2+, Urine Ketones Negative, Urine Blood Negative, Urine Nitrate Negative, Urine Bilirubin Negative, Urine Urobilinogen 0.2, Ur Leukocyte Esterase Negative, Urine RBC None, Urine WBC None, Ur Squamous Epith Cells 3-5, Urine Bacteria None 02/07/24 18:37: Lactate 2.8 H, Troponin I 0.04 H 02/07/24 21:14: Troponin I 0.02 02/07/24 22:08: Lactate 1.2 02/08/24 05:35: WBC 4.6 L D, RBC 4.62, Hgb 9.3 L, Hct 32.5 L, MCV 70.2 L, MCH 20.1 L, MCHC 28.6 L, RDW 19.5 H, Plt Count 109 L, MPV 8.1, Neut % (Auto) 87.5 H, Lymph % (Auto) 9.9 L, [place] % (Auto) 2.3, Eos % (Auto) 0.1, Baso % (Auto) 0.1, Neut # (Auto) 4.0, Lymph # (Auto) 0.5 L, [place] # (Auto) 0.1, Eos # (Auto) 0.0, Baso # (Auto) 0.0, Total Counted 100, Neutrophils % (Manual) 87 H, Lymphocytes % (Manual) 10, Monocytes % (Manual) 3, Platelet Estimate Slight decrease, Hypochromasia 2+, Sodium 131 L, Potassium 3.4 L, Chloride 95 L, Carbon Dioxide 33 H, Anion Gap 6.4, BUN 9, Creatinine 0.50 L, Estimated Creat Clear 90, Estimated GFR 125, Est GFR ( Amer) 151 D, Glucose 139 H D, Calcium 8.5, Magnesium 1.9, Total Bilirubin 0.4, AST 20 D, ALT 17, Alkaline Phosphatase 79, Total Protein 5.9 L, Albumin 2.9 L D, Globulin 3.0, Albumin/Globulin Ratio 1.0 L I & O for Last 24 hours: Intake & Output 02/05/24 02/06/24 02/07/24 02/08/24 11:59 11:59 11:59 11:59 Intake Total 660 / 660 Output Total 4350 / 4350 Balance -3690 / -3690 Weight 214 lb 9.6 oz Constitutional Constitutional: no acute distress *Routine Respiratory Exam Respiratory: Present decreased breath sounds and rales *Routine Cardiovascular Exam Cardiovascular: Present RRR; Absent murmur, gallop or rubs *Routine Extremities Exam Extremities: Absent edema *Routine Neurological Exam Neurological: Present alert, oriented X3 and CN II-XII intact Meds Home Medications and Allergies Home Medications Medication Instructions Recorded Confirmed Type aspirin 81 mg tablet,delayed 81 mg PO DAILY 08/09/22 02/06/24 History release (Adult Low Dose Aspirin) hydromorphone (PF) 1 mg/mL 1 mg SQ .COMPLEX PRN Pain 12/08/22 02/06/24 History injection syringe (Dilaudid (PF)) fluticasone propionate 50 1 spray intranasal DAILYP PRN 04/04/23 02/06/24 History mcg/actuation nasal Allergies spray,suspension (Flonase Allergy Relief) inhalational spacing device #10 ea 08/11/23 02/01/24 Rx (Aerochamber MV spacer) lidocaine 5 % topical patch 1 patch topical DAILY #30 ea 11/09/23 02/06/24 Rx azithromycin 250 mg tablet 250 mg PO QMWF #45 tabs 11/16/23 02/06/24 Rx albuterol sulfate 90 mcg/actuation 2 puff inhalation QIDP PRN 11/21/23 02/06/24 Rx aerosol inhaler Shortness Of Breath Or Wheezing #8.5 grams alprazolam 0.5 mg tablet 0.5 mg PO BIDP PRN Anxiety #60 tabs 11/21/23 02/06/24 Rx clobetasol 0.05 % topical ointment 0.05 applic topical DAILY 11/21/23 02/06/24 History colestipol 1 gram tablet 1 g PO BID PRN Diarrhea #180 tabs 11/21/23 02/01/24 Rx empagliflozin 10 mg tablet 10 mg PO DAILY Heart failure 30 11/21/23 02/06/24 Rx days #90 tabs escitalopram oxalate 20 mg tablet 40 mg (2 x 20 mg) PO HS Depression 11/21/23 02/06/24 Rx #90 tabs omeprazole 40 mg capsule,delayed 40 mg PO BID #180 caps 11/21/23 02/06/24 Rx release pramipexole 1 mg tablet 1 mg PO HS #90 tabs 11/21/23 02/06/24 Rx pregabalin 150 mg capsule 150 mg PO HS Pain #90 caps 11/21/23 02/06/24 Rx promethazine 25 mg tablet 25 mg PO Q6H PRN nausea and 11/21/23 02/06/24 Rx vomiting #120 tabs sacubitril 24 mg-valsartan 26 mg 1 tab PO BID 30 days #180 tabs 11/21/23 02/06/24 Rx tablet (Entresto) spironolactone 25 mg tablet 25 mg PO DAILY Fluid #90 tabs 11/21/23 02/06/24 Rx urea 45 % topical gel (ELSA-Urea) 1 applic topical BID 11/21/23 02/06/24 History nystatin 100,000 unit/gram topical 1 applic topical BID #60 grams 12/13/23 02/06/24 Rx powder cyanocobalamin (vitamin B-12) 1,000 mcg IM MONTHLY Supplement 12/21/23 02/06/24 Rx 1,000 mcg/mL injection solution #10 mL syringe with needle 1 mL 21 gauge #4 ea 12/21/23 02/01/24 Rx x 1 diclofenac sodium 1 % topical gel 2 g topical QID #100 grams 12/30/23 02/06/24 Rx ipratropium 0.5 mg-albuterol 3 mg 3 ml inhalation Q6HP PRN Shortness 12/30/23 02/06/24 Rx (2.5 mg base)/3 mL nebulization Of Breath Or Wheezing #180 mL soln furosemide 40 mg tablet 40 mg PO BID 30 days #180 tabs 01/04/24 02/06/24 Rx mupirocin 2 % topical ointment 1 applic topical BID #22 grams 01/06/24 02/06/24 Rx atorvastatin 20 mg tablet 20 mg PO HS Cholesterol 90 days 01/18/24 02/06/24 Rx #90 tabs potassium chloride 20 mEq 20 meq PO DAILY #30 tabs 01/18/24 02/06/24 Rx tablet,extended release budesonide 0.5 mg/2 mL suspension 0.5 mg (2 mL) inhalation BID 90 01/23/24 02/06/24 Rx for nebulization (Pulmicort) days #360 mL ipratropium 0.5 mg-albuterol 3 mg 3 ml inhalation Q8H 3 months #540 01/23/24 02/06/24 Rx (2.5 mg base)/3 mL nebulization mL soln New Prescriptions to Start Prescriptions: Allergies Allergy/AdvReac Type Severity Reaction Status Date / Time moxifloxacin [From Avelox] Allergy Intermediate Rash Verified 02/06/24 14:32 ofloxacin Allergy Unknown Verified 02/06/24 14:32 allergy reaction Quinidine-Quinine Analogues Allergy Unknown Verified 02/06/24 14:32 (Cincho allergy reaction rofecoxib [From Vioxx] Allergy Unknown Verified 02/06/24 14:32 allergy reaction tramadol Allergy Unknown Verified 02/06/24 14:32 allergy reaction amoxicillin [From Amoxil] AdvReac Intermediate NAUSEA/VOMI Verified 02/06/24 14:32 TING Assessment and Plan *Assessment and plan (1) Acute exacerbation of CHF (congestive heart failure): Status: Acute Qualifiers: Heart failure type: unspecified Qualified Code(s): I50.9 - Heart failure, unspecified Category: Medical Code(s): I50.9 - Heart failure, unspecified (2) (HFpEF) heart failure with preserved ejection fraction: Status: Chronic Qualifiers: Heart failure chronicity: chronic Qualified Code(s): I50.32 - Chronic diastolic (congestive) heart failure Category: Medical Code(s): I50.30 - Unspecified diastolic (congestive) heart failure (3) Right ventricular failure: Status: Acute Category: Medical Code(s): I50.810 - Right heart failure, unspecified (4) COPD (chronic obstructive pulmonary disease): Status: Acute Qualifiers: COPD type: unspecified COPD Qualified Code(s): J44.9 - Chronic obstructive pulmonary disease, unspecified Category: Medical Code(s): J44.9 - Chronic obstructive pulmonary disease, unspecified (5) Tobacco abuse: Status: Acute Category: Medical Code(s): Z72.0 - Tobacco use (6) 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 Category: Medical Code(s): G47.33 - Obstructive sleep apnea (adult) (pediatric); J44.9 - Chronic obstructive pulmonary disease, unspecified (7) HTN (hypertension): Status: Chronic Qualifiers: Hypertension type: primary hypertension Qualified Code(s): I10 - Essential (primary) hypertension Category: Medical Code(s): I10 - Essential (primary) hypertension (8) Mobility impaired: Status: Acute Category: Medical Code(s): Z74.09 - Other reduced mobility (9) HLD (hyperlipidemia): Status: Chronic Qualifiers: Hyperlipidemia type: unspecified Qualified Code(s): E78.5 - Hyperlipidemia, unspecified Category: Medical Code(s): E78.5 - Hyperlipidemia, unspecified (10) Pulmonary hypertension: Status: Acute Category: Medical Code(s): I27.20 - Pulmonary hypertension, unspecified Plan 1. HFpEF with acute exacerbation of right heart failure -Continue Bumex 1 mg twice daily -Continue Jardiance 10 mg daily -Continue spironolactone therapy 2. TOMER/COPD overlap syndrome/pulmonary hypertension -On antibiotic therapy with ceftriaxone and azithromycin 3. History of hypertension -Holding Entresto due to recurrent hypotension recently 4. Hyperlipidemia -Continue statin therapy 5. History of normal coronary arteries -On aspirin therapy Recommend continue IV diuretic therapy Monitoring renal status Anticipate patient could be discharged home later today or tomorrow Home medication recommendations: Bumex 1 mg twice daily Jardiance 10 mg daily Spironolactone 25 mg twice daily Aspirin 81 mg daily Atorvastatin 20 mg daily Continue holding Entresto due to recurrent hypotension and will consider restarting as an outpatient Stop Lasix in favor of Bumex Follow-up in our office in 1 to 2 weeks.
[2024-02-08] MEDS: SPIRONOLACTONE 25MG TABLET 25 MG PO ×2 (12:26→17:11)
[2024-02-08] MEDS: CEFTRIAXONE SODIUM 1 GM in 0.9 % SODIUM CHLORIDE 50 ML IV (15:45)
[2024-02-08] MEDS: AZITHROMYCIN 500 MG in 0.9 % SODIUM CHLORIDE 250 ML 250 MG IV (16:27)
--- NOTE | 2024-02-08 16:49 | PC.NURSE ---
Pt has rested in her bed off and on this shift. [place] been able [place] [facility] [place] to the bed pt o2 sats noted to be in the 70's. pt o2 increased to 5lpm until sats returned to above 90. then o2 decreased back to 4lpm. lungs are diminished throughout. bowel sounds are active in all quads. nad noted. pt is a/o x 4.
--- NOTE | 2024-02-08 19:14 | EXP.ACUTE.PN ---
Subjective *Date: 02/08/24 *Time: 21:04 Interval history: Patient feeling somewhat better today. Weaning oxygen, on 4 to 5 L during morning rounds. No nausea or vomiting. No chest pain. Tolerating p.o. intake. Afebrile. Medical Exam Vital signs and Labs for Last 24 Hours: Vital Signs Temp Pulse Pulse Resp BP Pulse Ox O2 Del Method 02/08/24 18:47 Nasal Cannula 02/08/24 18:20 88 02/08/24 18:20 92 H 02/08/24 17:15 Nasal Cannula 02/08/24 16:59 100 Nasal Cannula 02/08/24 16:00 90 02/08/24 16:00 98.0 F 97 H 18 124/77 94 L Nasal Cannula 02/08/24 15:46 Nasal Cannula 02/08/24 13:35 Nasal Cannula 02/08/24 12:00 100 H 02/08/24 12:00 98.5 F 106 H 19 94/55 L 92 L Nasal Cannula 02/08/24 11:04 78 02/08/24 11:04 77 02/08/24 11:00 Nasal Cannula 02/08/24 10:25 98 Nasal Cannula 02/08/24 10:00 89 22 100/61 L 92 L Nasal Cannula 02/08/24 09:58 Nasal Cannula 02/08/24 08:00 100 H 02/08/24 08:00 89 20 111/67 94 L Nasal Cannula 02/08/24 08:00 89 94 L Nasal Cannula 02/08/24 08:00 98.5 F 02/08/24 06:41 Nasal Cannula 02/08/24 06:07 81 02/08/24 06:07 85 02/08/24 06:07 92 L Nasal Cannula 02/08/24 05:00 Nasal Cannula 02/08/24 04:03 98 H 02/08/24 04:00 63 02/08/24 04:00 97.8 F 02/08/24 04:00 87 20 107/61 L 90 L Nasal Cannula 02/08/24 03:10 Nasal Cannula 02/08/24 02:12 97 Nasal Cannula 02/08/24 01:00 Nasal Cannula 02/08/24 00:11 82 02/08/24 00:11 84 02/08/24 00:00 93 L Nasal Cannula 02/08/24 00:00 92 H 02/08/24 00:00 88 20 106/61 L 93 L Nasal Cannula 02/07/24 23:00 Nasal Cannula 02/07/24 21:00 Nasal Cannula 02/07/24 20:25 81 02/07/24 20:25 86 02/07/24 20:25 93 L Nasal Cannula 02/07/24 20:00 96 Nasal Cannula 02/07/24 20:00 97.7 F 79 22 94/64 L 95 Nasal Cannula O2 Flow Rate 02/08/24 18:47 4 02/08/24 18:20 02/08/24 18:20 02/08/24 17:15 4 02/08/24 16:59 4 02/08/24 16:00 02/08/24 16:00 4 02/08/24 15:46 4 02/08/24 13:35 4 02/08/24 12:00 02/08/24 12:00 4 02/08/24 11:04 02/08/24 11:04 02/08/24 11:00 4 02/08/24 10:25 4 02/08/24 10:00 4 02/08/24 09:58 4 02/08/24 08:00 02/08/24 08:00 5 02/08/24 08:00 5 02/08/24 08:00 02/08/24 06:41 5 02/08/24 06:07 02/08/24 06:07 02/08/24 06:07 5 02/08/24 05:00 5 02/08/24 04:03 02/08/24 04:00 02/08/24 04:00 02/08/24 04:00 5 02/08/24 03:10 5 02/08/24 02:12 5 02/08/24 01:00 5 02/08/24 00:11 02/08/24 00:11 02/08/24 00:00 5 02/08/24 00:00 02/08/24 00:00 5 02/07/24 23:00 5 02/07/24 21:00 5 02/07/24 20:25 02/07/24 20:25 02/07/24 20:25 5 02/07/24 20:00 5 02/07/24 20:00 5 Intake and Output 06/02/08/24 02/08/24 07:59 15:59 23:59 Intake Total 690 / 1160 470 / 1160 Output Total 2500 / 5100 1250 / 5100 1350 / 5100 Balance -2500 / -3940 -560 / -3940 -880 / -3940 Intake: Intake, Oral Amount 690 / 1110 420 / 1110 Intake, Total IV Amount 50 / 50 Ceftriaxone Sodium 1 gm In 0.9 50 / 50 % Sodium Chloride 50 ml @ 100 mls/hr IV Q24H [facility] [place] Rx#:[id number] Output: Output, Urine Amount 2500 / 5100 1250 / 5100 1350 / 5100 Other: Weight 97.341 kg Patient Weight 02/08/24 23:59 Weight 97.341 kg Laboratory Results - last 24 hr 02/07/24 18:37: Lactate 2.8 H, Troponin I 0.04 H 02/07/24 21:14: Troponin I 0.02 02/07/24 22:08: Lactate 1.2 02/08/24 05:35: WBC 4.6 L D, RBC 4.62, Hgb 9.3 L, Hct 32.5 L, MCV 70.2 L, MCH 20.1 L, MCHC 28.6 L, RDW 19.5 H, Plt Count 109 L, MPV 8.1, Neut % (Auto) 87.5 H, Lymph % (Auto) 9.9 L, [place] % (Auto) 2.3, Eos % (Auto) 0.1, Baso % (Auto) 0.1, Neut # (Auto) 4.0, Lymph # (Auto) 0.5 L, [place] # (Auto) 0.1, Eos # (Auto) 0.0, Baso # (Auto) 0.0, Total Counted 100, Neutrophils % (Manual) 87 H, Lymphocytes % (Manual) 10, Monocytes % (Manual) 3, Platelet Estimate Slight decrease, Hypochromasia 2+, Sodium 131 L, Potassium 3.4 L, Chloride 95 L, Carbon Dioxide 33 H, Anion Gap 6.4, BUN 9, Creatinine 0.50 L, Estimated Creat Clear 90, Estimated GFR 125, Est GFR ( Amer) 151 D, Glucose 139 H D, Calcium 8.5, Magnesium 1.9, Total Bilirubin 0.4, AST 20 D, ALT 17, Alkaline Phosphatase 79, Total Protein 5.9 L, Albumin 2.9 L D, Globulin 3.0, Albumin/Globulin Ratio 1.0 L I & O for Labs for Last 24 Hours: Intake & Output 02/05/24 02/06/24 02/07/24 02/08/24 23:59 23:59 23:59 23:59 Intake Total 240 / 240 1160 / 1160 Output Total 1000 / 1600 5100 / 5100 Balance -760 / -1360 -3940 / -3940 Weight 95.935 kg 97.341 kg Microbiology Reports for the Last 24 Hours: Microbiology 02/07/24 16:08 Blood Blood Culture - Preliminary NO GROWTH AFTER 24 HOURS 02/07/24 15:02 Blood Blood Culture - Preliminary NO GROWTH AFTER 24 HOURS Constitutional: Present no acute distress, obese and chronically ill appearing Head: Present atraumatic ENT: Present normal exam Respiratory: Present prolonged expiratory phase and normal respiratory effort; Absent rhonchi, wheezes or crackles Cardiac: Present Reg Rate and Rhythm GI: Present soft and normal bowel sounds; Absent distention or tenderness Extremities: Present normal inspection and full ROM; Absent edema Skin: Present intact; Absent erythema Neuro: Present Grossly Intact, alert, awake, oriented x 3 and moves all extremities Assessment and Plan *Assessment and plan (1) Acute exacerbation of CHF (congestive heart failure): Status: Acute Qualifiers: Heart failure type: unspecified Qualified Code(s): I50.9 - Heart failure, unspecified Category: Medical Code(s): I50.9 - Heart failure, unspecified (2) Acute on chronic hypoxic respiratory failure: Status: Acute Category: Medical Code(s): J96.21 - Acute and chronic respiratory failure with hypoxia (3) Pulmonary arterial hypertension: Status: Acute Category: Medical Code(s): I27.21 - Secondary pulmonary arterial hypertension (4) COPD (chronic obstructive pulmonary disease): Status: Acute Qualifiers: COPD type: unspecified COPD Qualified Code(s): J44.9 - Chronic obstructive pulmonary disease, unspecified Category: Medical Code(s): J44.9 - Chronic obstructive pulmonary disease, unspecified (5) (HFpEF) heart failure with preserved ejection fraction: Status: Chronic Qualifiers: Heart failure chronicity: chronic Qualified Code(s): I50.32 - Chronic diastolic (congestive) heart failure Category: Medical Code(s): I50.30 - Unspecified diastolic (congestive) heart failure (6) 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 Category: Medical Code(s): G47.33 - Obstructive sleep apnea (adult) (pediatric); J44.9 - Chronic obstructive pulmonary disease, unspecified (7) HLD (hyperlipidemia): Status: Chronic Qualifiers: Hyperlipidemia type: unspecified Qualified Code(s): E78.5 - Hyperlipidemia, unspecified Category: Medical Code(s): E78.5 - Hyperlipidemia, unspecified (8) Pulmonary fibrosis: Status: Chronic Category: Medical Code(s): J84.10 - Pulmonary fibrosis, unspecified Plan 63-year-old female with extensive history of chronic lung disease and heart failure. Presented with hypoxia and increased oxygen requirement from baseline. Workup in the ER concerning for acute on chronic heart failure with acute on chronic hypoxia. Discussed case with ER physician, request admission for diuresis, monitoring of blood pressure, cardiology consult. I agreed to admit for further management. Weaned to 4 L this morning. Continues to require inpatient management. Blood pressure doing better. Cardiology continues to help assist with management. Diuresing well, -3.5 L of output. Problems addressed as follows: Acute on chronic hypoxemic respiratory failure Acute on chronic heart failure with preserved ejection fraction -BNP greater than 22,000 on admission. Responding well to diuresis. Continue Bumex 1 mg IV twice daily - negative 3.5 L in the past 24 hours. - Wean oxygen as tolerated, goal sats greater 90%. Currently on 4 L. -Blood pressure improved this morning, systolic of 107. Holding Entresto and spironolactone -Continue Jardiance 10 mg daily -Discussed case with cardiology, will focus on diuresis. Hold blood pressure meds. -Concern for pulmonary edema versus pneumonia on chest imaging per my review. Continue azithromycin and ceftriaxone. -DuoNebs every 6 hours scheduled budesonide twice daily Anxiety continue Xanax 0.5 mg daily as needed Hyperlipidemia: Continue Lipitor 20 mg nightly Continue Lyrica 150 mg nightly for pain Continue pramipexole 1 mg nightly for sleep and tremor Chronic anemia stable with hemoglobin of 9.3. Platelets low at 109. Caution with DVT prophylaxis, monitor platelets daily. Will hold DVT prophylaxis if platelets drop below 100. Chronic hyponatremia with sodium of 131, chloride 95, potassium 3.4, magnesium 1.9. Kidney function with BUN 9, creatinine 0.5. Monitoring closely with diuresis above CBC, CMP and magnesium ordered for the morning Full code Prophylactic Lovenox Cardiac diet
[2024-02-08] MEDS: CITALOPRAM 40MG TABLET 40 MG PO (20:31)
[2024-02-08] MEDS: ATORVASTATIN 20MG TABLET 20 MG PO (20:31)
[2024-02-08] MEDS: PRAMIPEXOLE 1MG TAB 1 MG PO (20:33)
[2024-02-08] MEDS: PREGABALIN 50MG CAPSULE 150 MG PO (20:33)
[2024-02-09] VITALS: BP 159/73; PULSE 100; PULSE 101; RESP 17; TEMP 37.1; O2SAT 91
[2024-02-09 00:42] VITALS: PULSE 82; PULSE 86
[2024-02-09] MEDS: IPRATROPIUM/ALBUTEROL 3 ML NEB IH ×2 (00:42→06:43)
[2024-02-09 04:00] VITALS: BP 151/78; PULSE 70; PULSE 94; RESP 27; TEMP 36.6; O2SAT 95; BMI 30.1
[2024-02-09 06:43] VITALS: PULSE 83; PULSE 84; O2SAT 98
[2024-02-09] MEDS: BUDESONIDE 0.5MG/2ML NEB 0.5 MG IH (06:43)
--- NOTE | 2024-02-09 06:56 | PC.NURSE ---
pt alert and oriented x4, nsr-st on monitor, pt on 4l/nc, voided 1400 ml over night, has been restless going from bed to chair through the night.
[2024-02-09 07:19] LABS: Basophils % 0.1 % (0.1-2.0); Eosinophils % 0.3 % (0.1-12.0); Hematocrit 33.2 % (37.0-47.0); Hemoglobin 9.4 g/dL (12.2-16.2); Lymphocytes % 10.4 % (10-50); Mean Corpuscular HGB Conc 28.3 g/dL (31.8-35.4); Mean Corpuscular Hemoglobin 20.1 pg (27.0-31.2); Mean Platelet Volume 9.1 fl (7.4-10.4); Monocytes # 0.5 K/mm3 (0.1-1.0); Monocytes % 5.4 % (1.7-9.3); Neutrophils # 7.7 K/mm3 (1.8-7.8); Neutrophils % 83.9 % (37.0-80.0); Platelet Count 126 K/mm3 (142-424); Red Blood Count 4.68 M/mm3 (4.20-5.40); Red Cell Distribution Width 19.7 % (11.5-17.5); White Blood Count 9.1 K/mm3 (4.8-10.8)
[2024-02-09 07:38] LABS: Chloride 94 mmol/L (98-107); Sodium 131 mmol/L (136-145)
[2024-02-09 07:40] LABS: Alanine Aminotransferase 20 U/L (12-78); Aspartate Amino Transferase 82 U/L (14-36); Blood Urea Nitrogen 9 mg/dl (7-17); Creatinine Clearance Estimated 90 mL/min (50-200); Estimated Glomerular Filt Rate 101 ml/min (>60); GFR (African American) 123 ML/MIN (>60)
[2024-02-09 07:41] LABS: Albumin Level 3.2 g/dl (3.5-5.0); Albumin/Globulin Ratio 1.1 (1.1-1.8); Alkaline Phosphatase 81 U/L (38-126); Bilirubin,Total 0.5 mg/dl (0.2-1.3); Calcium 8.6 mg/dl (8.4-10.2); Carbon Dioxide 31 mmol/L (22.0-30.0); Glucose 91 mg/dl (74-100); Magnesium 1.9 mg/dl (1.6-2.3); Total Protein,Serum 6.2 g/dl (6.3-8.2)
[2024-02-09 08:00] VITALS: BP 133/71; PULSE 90; PULSE 94; RESP 20; TEMP 36.9; O2SAT 90
[2024-02-09] MEDS: ASPIRIN EC 81MG TABLET 81 MG PO (08:25)
[2024-02-09] MEDS: BUMETANIDE 1MG/4ML VIAL 1 MG IV (08:25)
[2024-02-09] MEDS: NYSTATIN TOPICAL POWDER 30GM TP (08:26)
[2024-02-09] MEDS: ENOXAPARIN 40MG/0.4ML SYRINGE 40 MG SQ (08:26)
[2024-02-09] MEDS: EMPAGLIFLOZIN 10MG TABLET 10 MG PO (08:26)
[2024-02-09] MEDS: SPIRONOLACTONE 25MG TABLET 25 MG PO (08:27)
[2024-02-09] MEDS: PANTOPRAZOLE 40MG TABLET 40 MG PO (08:27)
[2024-02-09] MEDS: POTASSIUM CHLORIDE 20MEQ TAB 20 MEQ PO (08:27)
--- NOTE | 2024-02-09 10:42 | EXP.CARD.PN ---
Subjective Subjective Date: 02/09/24 Time: 10:43 Interval history: 63 yo WF in bed in NAD Breathing better Discussed diet/sodium intake to minimize recurrence of CHF Ready to go home Exam Data for Last 24 hours Vital signs and Labs for Last 24 Hours: Temp Pulse Resp BP Pulse Ox O2 Del Method O2 Flow Rate 98.4 F 94 H 20 133/71 90 L Nasal Cannula 4 02/09/24 08:00 02/09/24 08:00 02/09/24 08:00 02/09/24 08:00 02/09/24 08:00 02/09/24 09:00 02/09/24 09:00 Laboratory Results - last 24 hr 02/09/24 05:38: WBC 9.1 D, RBC 4.68, Hgb 9.4 L, Hct 33.2 L, MCV 71.0 L, MCH 20.1 L, MCHC 28.3 L, RDW 19.7 H, Plt Count 126 L, MPV 9.1, Neut % (Auto) 83.9 H, Lymph % (Auto) 10.4, [place] % (Auto) 5.4, Eos % (Auto) 0.3, Baso % (Auto) 0.1, Neut # (Auto) 7.7, Lymph # (Auto) 1.0, [place] # (Auto) 0.5, Eos # (Auto) 0.0, Baso # (Auto) 0.0, Sodium 131 L, Potassium 4.0, Chloride 94 L, Carbon Dioxide 31 H, Anion Gap 10.0, BUN 9, Creatinine 0.60, Estimated Creat Clear 90, Estimated GFR 101, Est GFR ( Amer) 123, Glucose 91, Calcium 8.6, Magnesium 1.9, Total Bilirubin 0.5, AST 82 H D, ALT 20, Alkaline Phosphatase 81, Total Protein 6.2 L, Albumin 3.2 L D, Globulin 3.0, Albumin/Globulin Ratio 1.1 I & O for Last 24 hours: Intake & Output 02/06/24 02/07/24 02/08/24 02/09/24 11:59 11:59 11:59 11:59 Intake Total 660 / 660 1220 / 1220 Output Total 4350 / 4750 4850 / 4850 Balance -3690 / -4090 -3630 / -3630 Weight 214 lb 9.6 oz 215 lb Microbiology Reports for the Last 24 Hours: Microbiology 02/07/24 16:08 Blood Blood Culture - Preliminary NO GROWTH AFTER 24 HOURS 02/07/24 15:02 Blood Blood Culture - Preliminary NO GROWTH AFTER 24 HOURS Constitutional Constitutional: no acute distress *Routine Respiratory Exam Respiratory: Present CTA bilaterally *Routine Cardiovascular Exam Cardiovascular: Present RRR Progress Note: A&P Assessment and plan (1) Acute exacerbation of CHF (congestive heart failure): Status: Acute (2) Acute on chronic hypoxic respiratory failure: Status: Acute (3) Pulmonary arterial hypertension: Status: Acute (4) COPD (chronic obstructive pulmonary disease): Status: Acute (5) (HFpEF) heart failure with preserved ejection fraction: Status: Chronic (6) 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 HFpEF with acute exacerbation of right heart failure -Continue Bumex 1 mg twice daily -Continue Jardiance 10 mg daily -Continue spironolactone therapy 2. TOMER/COPD overlap syndrome/pulmonary hypertension -On antibiotic therapy with ceftriaxone and azithromycin 3. History of hypertension -Holding Entresto due to recurrent hypotension recently 4. Hyperlipidemia -Continue statin therapy 5. History of normal coronary arteries -On aspirin therapy Home medication recommendations: Bumex 1 mg twice daily Jardiance 10 mg daily Spironolactone 25 mg twice daily Aspirin 81 mg daily Atorvastatin 20 mg daily Continue holding Entresto due to recurrent hypotension and will consider restarting as an outpatient Stop Lasix in favor of Bumex Follow-up in our office in 1 to 2 weeks.
[2024-02-09 12:00] VITALS: BP 125/63; PULSE 87; RESP 16; TEMP 36.6; O2SAT 96
--- NOTE | 2024-02-09 12:29 | P.DS_ITS ---
General Admission date:: 02/07/24 Discharge date: 02/09/24 HPI HPI HPI: Ms. Woods is a 63-year-old female with extensive history of heart failure and COPD. On chronic oxygen of 2 L. Follows with cardiology and pulmonology at [facility]. She presented to the ER with worsening dyspnea over the past 3 days. Reports she has had a mildly productive cough for many months. Denies any chest pain. He was frankly hypoxic on arrival to the ER. Necessitated nonrebreather. Attempts to wean oxygen with O2 sats dropping into the mid 80s. Workup in the ER with BNP of 22,000, chest imaging concerning for pulmonary edema. Strong concern for acute exacerbation of CHF. Weight up per chart review. Diuresed with IV Lasix x 1. Medicine was consulted for admission. Patient denies fevers, nausea, vomiting, hemoptysis. On arrival to the floor, she is alert and oriented x 4. Appears at her baseline mentation. Necessitating 5 to 6 L nasal cannula. Stating she is feeling somewhat better after having increased urine output. Hospital Course Hospital Course Hospital Course: 63-year-old female with extensive history of chronic lung disease and heart failure. Presented with hypoxia and increased oxygen requirement from baseline. Workup in the ER concerning for acute on chronic heart failure with acute on chronic hypoxia. Discussed case with ER physician, request admission for diuresis, monitoring of blood pressure, cardiology consult. I agreed to admit for further management. Patient able to gradually wean with diuresis. -7.6 L for admission. Weaned to 4 L nasal cannula and feeling much better. Stable to discharge home to continue to wean as an outpatient. Continue aggressive diuresis at discharge. Problems addressed as follows: Acute on chronic hypoxemic respiratory failure Acute on chronic heart failure with preserved ejection fraction -BNP greater than 22,000 on admission. Initiated on aggressive diuretic regimen. Total -7.6 L during admission. Able to wean oxygen down to 3-1/2 to 4 L to maintain sats above 90% by day of discharge. Cardiology was consulted to assist with care. Recommend continuing diuresis twice daily. Continue Jardiance 10 mg daily for heart failure, continue spironolactone 25 mg twice daily. Concern for pulmonary edema versus pneumonia on chest imaging per my review. Treated with azithromycin and ceftriaxone during admission. Weaned to cefdinir at discharge to complete 5 days of therapy. Continue DuoNebs as needed. Anxiety continue Xanax 0.5 mg daily as needed Hyperlipidemia: Continue Lipitor 20 mg nightly Continue Lyrica 150 mg nightly for pain Continue pramipexole 1 mg nightly for sleep and tremor Chronic anemia stable with hemoglobin of 9.3. Platelets low at 109. Caution with DVT prophylaxis, monitor platelets daily. Will hold DVT prophylaxis if platelets drop below 100. Chronic hyponatremia with sodium of 131, chloride 95, potassium 3.4, magnesium 1.9. Kidney function with BUN 9, creatinine 0.5. Monitoring closely with diuresis above History of hypertension: Holding Entresto due to recurrent hypotension recently. Hold at discharge, evaluate resumption of follow-up with cardiology. Hyperlipidemia: Continue statin therapy and aspirin daily. Total time spent on discharge 32 minutes in counseling, documentation, chart review, and direct care with patient. Exam Data for Last 24 hours Vital signs and Labs for Last 24 Hours: Temp Pulse Resp BP Pulse Ox O2 Del Method O2 Flow Rate 97.9 F 87 16 125/63 96 Nasal Cannula 4 02/09/24 12:00 02/09/24 12:00 02/09/24 12:00 02/09/24 12:02/09/24 12:00 02/09/24 12:00 02/09/24 12:00 Laboratory Results - last 24 hr 02/09/24 05:38: WBC 9.1 D, RBC 4.68, Hgb 9.4 L, Hct 33.2 L, MCV 71.0 L, MCH 20.1 L, MCHC 28.3 L, RDW 19.7 H, Plt Count 126 L, MPV 9.1, Neut % (Auto) 83.9 H, Lymph % (Auto) 10.4, [place]ke[place] % (Auto) 5.4, Eos % (Auto) 0.3, Baso % (Auto) 0.1, Neut # (Auto) 7.7, Lymph # (Auto) 1.0, Mckean # (Auto) 0.5, Eos # (Auto) 0.0, Baso # (Auto) 0.0, Sodium 131 L, Potassium 4.0, Chloride 94 L, Carbon Dioxide 31 H, Anion Gap 10.0, BUN 9, Creatinine 0.60, Estimated Creat Clear 90, Estimated GFR 101, Est GFR ( Amer) 123, Glucose 91, Calcium 8.6, Magnesium 1.9, Total Bilirubin 0.5, AST 82 H D, ALT 20, Alkaline Phosphatase 81, Total Protein 6.2 L, Albumin 3.2 L D, Globulin 3.0, Albumin/Globulin Ratio 1.1 I & O for Last 24 hours: Intake & Output 02/06/24 02/07/24 02/08/24 02/09/24 23:59 23:59 23:59 23:59 Intake Total 240 / 240 1160 / 1160 480 / 480 Output Total 1000 / 1600 6200 / 6200 2300 / 2300 Balance -760 / -1360 -5040 / -5040 -1820 / -1820 Weight 95.935 kg 97.341 kg 97.522 kg Microbiology Reports for the Last 24 Hours: Microbiology 02/07/24 16:08 Blood Blood Culture - Preliminary NO GROWTH AFTER 24 HOURS 02/07/24 15:02 Blood Blood Culture - Preliminary NO GROWTH AFTER 24 HOURS Microbiology Constitutional Constitutional: no acute distress, average body habitus, chronically ill appearing and cooperative *Routine HEENT Exam Head: Present normocephalic Eye: Present EOMI and PERRL ENT: Present mucous membranes moist *Routine Neck Exam Neck: Present supple; Absent lymphadenopathy *Routine Respiratory Exam Respiratory: Present CTA bilaterally, prolonged expiratory phase, wheezes and normal respiratory effort; Absent rhonchi or crackles *Routine Cardiovascular Exam Cardiovascular: Present RRR *Routine Abdominal Exam Abdominal: Present soft and normoactive bowel sounds; Absent tenderness *Routine Rectal Exam Patient deferred: visual exam *Routine Exam Patient deferred: external exam *Routine Extremities Exam Extremities: Absent cyanosis, clubbing or edema *Routine Skin Exam Skin: Present intact and warm; Absent rash *Routine Neurological Exam Neurological: Present alert, oriented X3 and moving all extremities; Absent altered mental status Results Data Completed and Pending Labs on day of discharge: Labs from last 24 hours 02/09/24 05:38 WBC 9.1 D RBC 4.68 Hgb 9.4 L Hct 33.2 L MCV 71.0 L MCH 20.1 L MCHC 28.3 L RDW 19.7 H Plt Count 126 L MPV 9.1 Neut % (Auto) 83.9 H Lymph % (Auto) 10.4 Mckean % (Auto) 5.4 Eos % (Auto) 0.3 Baso % (Auto) 0.1 Neut # (Auto) 7.7 Lymph # (Auto) 1.0 Mckean # (Auto) 0.5 Eos # (Auto) 0.0 Baso # (Auto) 0.0 Sodium 131 L Potassium 4.0 Chloride 94 L Carbon Dioxide 31 H Anion Gap 10.0 BUN 9 Creatinine 0.60 Estimated Creat Clear 90 Estimated GFR 101 Est GFR ( Amer) 123 Glucose 91 Calcium 8.6 Magnesium 1.9 Total Bilirubin 0.5 AST 82 H D ALT 20 Alkaline Phosphatase 81 Total Protein 6.2 L Albumin 3.2 L D Globulin 3.0 Albumin/Globulin Ratio 1.1 Preliminary micro results at discharge 02/07/24 16:08 Blood Culture - Preliminary Blood NO GROWTH AFTER 24 HOURS 02/07/24 15:02 Blood Culture - Preliminary Blood NO GROWTH AFTER 24 HOURS DS: Diagnosis Discharge Diagnosis (1) Acute exacerbation of CHF (congestive heart failure): Status: Acute Code(s): I50.9 - Heart failure, unspecified Qualifiers: Heart failure type: unspecified Qualified Code(s): I50.9 - Heart failure, unspecified (2) Acute on chronic hypoxic respiratory failure: Status: Acute Code(s): J96.21 - Acute and chronic respiratory failure with hypoxia (3) Pulmonary arterial hypertension: Status: Acute Code(s): I27.21 - Secondary pulmonary arterial hypertension (4) COPD (chronic obstructive pulmonary disease): Status: Acute Code(s): J44.9 - Chronic obstructive pulmonary disease, unspecified Qualifiers: COPD type: unspecified COPD Qualified Code(s): J44.9 - Chronic obstructive pulmonary disease, unspecified (5) (HFpEF) heart failure with preserved ejection fraction: Status: Chronic Code(s): I50.30 - Unspecified diastolic (congestive) heart failure Qualifiers: Heart failure chronicity: chronic Qualified Code(s): I50.32 - Chronic diastolic (congestive) heart failure (6) 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 Code(s): G47.33 - Obstructive sleep apnea (adult) (pediatric); J44.9 - Chronic obstructive pulmonary disease, unspecified (7) HLD (hyperlipidemia): Status: Chronic Code(s): E78.5 - Hyperlipidemia, unspecified Qualifiers: Hyperlipidemia type: unspecified Qualified Code(s): E78.5 - Hyperlipidemia, unspecified (8) Pulmonary fibrosis: Status: Chronic Code(s): J84.10 - Pulmonary fibrosis, unspecified Meds Home Medications and Allergies Home Medications Medication Instructions Recorded Confirmed Type aspirin 81 mg tablet,delayed 81 mg PO DAILY 08/09/22 02/08/24 History release (Adult Low Dose Aspirin) fluticasone propionate 50 1 spray intranasal DAILYP PRN 04/04/23 02/08/24 History mcg/actuation nasal Allergies spray,suspension (Flonase Allergy Relief) lidocaine 5 % topical patch 1 patch topical DAILY #30 ea 11/09/23 02/08/24 Rx albuterol sulfate 90 mcg/actuation 2 puff inhalation QIDP PRN 11/21/23 02/08/24 Rx aerosol inhaler Shortness Of Breath Or Wheezing #8.5 grams alprazolam 0.5 mg tablet 0.5 mg PO BIDP PRN Anxiety #60 tabs 11/21/23 02/08/24 Rx colestipol 1 gram tablet 1 g PO BID PRN Diarrhea #180 tabs 11/21/23 02/08/24 Rx empagliflozin 10 mg tablet 10 mg PO DAILY Heart failure 30 11/21/23 02/08/24 Rx days #90 tabs escitalopram oxalate 20 mg tablet 40 mg (2 x 20 mg) PO HS Depression 11/21/23 0 02/08/24 Rx #90 tabs omeprazole 40 mg capsule,delayed 40 mg PO BID #180 caps 11/21/23 02/08/24 Rx release pramipexole 1 mg tablet 1 mg PO HS #90 tabs 11/21/23 02/08/24 Rx pregabalin 150 mg capsule 150 mg PO HS Pain #90 caps 11/21/23 02/08/24 Rx sacubitril 24 mg-valsartan 26 mg 1 tab PO BID 30 days #180 tabs 11/21/23 02/08/24 Rx tablet (Entresto) cyanocobalamin (vitamin B-12) 1,000 mcg IM MONTHLY Supplement 12/21/23 02/08/24 Rx 1,000 mcg/mL injection solution #10 mL furosemide 40 mg tablet 40 mg PO BID 30 days #180 tabs 01/04/24 02/08/24 Rx atorvastatin 20 mg tablet 20 mg PO HS Cholesterol 90 days 01/18/24 02/08/24 Rx #90 tabs ipratropium 0.5 mg-albuterol 3 mg 3 ml inhalation Q8H 3 months #540 01/23/24 02/08/24 Rx (2.5 mg base)/3 mL nebulization mL soln azithromycin 250 mg tablet 250 mg PO MOWEFR 02/08/24 02/08/24 History potassium chloride 20 mEq 40 meq PO DAILY 02/08/24 02/08/24 History tablet,extended release(part/cryst) cefdinir 300 mg capsule 300 mg PO BID 4 days #8 caps 02/09/24 Rx spironolactone 25 mg tablet 25 mg PO BID Fluid 30 days #60 tabs 02/09/24 Rx fluticasone furoate 200 1 inh inhalation DAILY 90 days #90 02/10/24 Rx mcg-vilanterol 25 mcg/dose ea inhalation powder (Breo Ellipta) tiotropium bromide 2.5 2 inh inhalation DAILY Breathing 02/10/24 Rx mcg/actuation mist for inhalation problems 90 days #4 grams (Spiriva Respimat) New Prescriptions to Start Prescriptions: Yosvany Hernandez spironolactone Yosvany Gant Allergies Allergy/AdvReac Type Severity Reaction Status Date / Time moxifloxacin [From Avelox] Allergy Intermediate Rash Verified 02/06/24 14:32 ofloxacin Allergy Unknown Verified 02/06/24 14:32 allergy reaction Quinidine-Quinine Analogues Allergy Unknown Verified 02/06/24 14:32 (Cincho allergy reaction rofecoxib [From Vioxx] Allergy Unknown Verified 02/06/24 14:32 allergy reaction tramadol Allergy Unknown Verified 02/06/24 14:32 allergy reaction amoxicillin [From Amoxil] AdvReac Intermediate NAUSEA/VOMI Verified 02/06/24 14:32 TING Discharge Plan Disposition Patient Disposition: Home, Self-Care Condition: Fair Discharge Order Discharge Orders: Discharge Order (Routine); Ordered 02/09/24 Ordered By: Yosvany Gant Follow up Plan Follow up with: Keegan Green MD [Primary Care Provider] - 02/21/24 11:30 am Ghulam Valladares MD [Staff Physician] - 02/21/24 1:45 pm Prescriptions/Medication Reconciliation: New cefdinir 300 mg capsule 300 mg PO BID 4 Days Qty: 8 0RF Continued aspirin [Adult Low Dose Aspirin] 81 mg tablet,delayed release (DR/EC) 81 mg PO DAILY fluticasone propionate [Flonase Allergy Relief] 50 mcg/actuation spray,suspension 1 spray intranasal DAILYP PRN (Reason: Allergies) Rx Instructions: Administer 1 spray into each nostril albuterol sulfate 90 mcg/actuation HFA aerosol inhaler 2 puff INHALATION QIDP PRN (Reason: Shortness Of Breath Or Wheezing) Qty: 8.5 5RF alprazolam 0.5 mg tablet 0.5 mg PO BIDP PRN (Reason: Anxiety) Qty: 60 2RF colestipol 1 gram tablet 1 g PO BID PRN (Reason: Diarrhea) Qty: 180 3RF empagliflozin 10 mg tablet 10 mg PO DAILY 30 Days Qty: 90 2RF escitalopram oxalate 20 mg tablet 40 mg PO HS Qty: 90 1RF omeprazole 40 mg capsule,delayed release(DR/EC) 40 mg PO BID Qty: 180 1RF pramipexole 1 mg tablet 1 mg PO HS Qty: 90 1RF pregabalin 150 mg capsule 150 mg PO HS Qty: 90 1RF furosemide 40 mg tablet 40 mg PO BID 30 Days Qty: 180 2RF Rx Instructions: Take twice daily every other day alternating with once daily cyanocobalamin (vitamin B-12) 1,000 mcg/mL solution 1,000 mcg IM MONTHLY Qty: 10 1RF atorvastatin 20 mg tablet 20 mg PO HS 90 Days Qty: 90 0RF ipratropium-albuterol 0.5 mg-3 mg(2.5 mg base)/3 mL solution for nebulization 3 ml inhalation Q8H 90 Days Qty: 540 3RF azithromycin 250 mg tablet 250 mg PO MOWEFR potassium chloride 20 mEq tablet,ER particles/crystals 40 meq PO DAILY Patient Comments: TAKE (2) TABLETS BY MOUTH DAILY. lidocaine 5 % adhesive patch,medicated 1 patch topical DAILY Qty: 30 3RF Rx Instructions: leave on most painful area for up to 12 hrs Changed spironolactone 25 mg tablet 25 mg PO BID 30 Days Qty: 60 3RF Held Entresto 24-26 mg tablet 1 tab PO BID 30 Days Qty: 180 1RF Hold Instructions: Pending follow-up with cardiology No Action fluticasone furoate-vilanterol [Breo Ellipta] 200-25 mcg/dose blister with device 1 inh inhalation DAILY 90 Days Qty: 90 2RF Spiriva Respimat 2.5 mcg/actuation mist 2 inh inhalation DAILY 90 Days Qty: 4 3RF Rx Instructions: COPD Problem Reconciliation Problems Reviewed?: Yes Patient Discharge Instructions ACTIVITY: Continue current activity DIET: continue same diet Patient Instructions: DI for Heart Failure, DI for Respiratory Failure Providers Primary Care Provider: Keegan Green Admit Provider: Yosvany Gant Attending Provider: Yosvany Gant
--- NOTE | 2024-02-10 13:39 | CARE MANAGER ---
Contacted patient related to hospital discharge. Patient states she had some questions about her inhalers, but she called the pulmonology office and they helped her. She pickedup her antibiotic and is aware of her follow up appointments. She denies other questions or concerns. CINDY Michaud
== END 2024-02-09 13:30 | disposition home or self-care (01) | DRG 291 ==
LOC: ER 15:51 → 2ND 16:38
PROVIDERS: Physician Assistant; Admitting Provider Internal Medicine Adolescent Medicine; Emergency Provider Student in an Organized Health Care Education/Training Program; PCP Family Medicine; Visit Provider Internal Medicine Adolescent Medicine
DX: I11.0 Hypertensive heart disease with heart failure; I50.33 Acute on chronic diastolic (congestive) heart failure; J96.21 Acute and chronic respiratory failure with hypoxia; E87.1 Hypo-osmolality and hyponatremia; J44.9 Chronic obstructive pulmonary disease, unspecified; G47.33 Obstructive sleep apnea (adult) (pediatric); E78.5 Hyperlipidemia, unspecified; J84.10 Pulmonary fibrosis, unspecified; F41.9 Anxiety disorder, unspecified; D64.89 Other specified anemias; I27.20 Pulmonary hypertension, unspecified
CPT/HCPCS: 36415; 71045; 80053; 81001; 82803; 83605; 83735; 83880; 84484; 85007; 85025; 85610; 87040; 87636; 93005; 94640; 94761; 99291; J0131; J0456; J0696; J1650; J1885; J1940; J2405; J7030; J7620

== ENCOUNTER 2024-02-13 07:55 | Emergency (ER) | payer MEDICARE, MEDICAID, SELFPAY ==
[2024-02-13] VITALS (11 sets, daily range): BP systolic 87–133; BP diastolic 41–63; PULSE 60–99; RESP 20–29; TEMP 36.4–36.7; O2SAT 62–97; BMI 29.7
--- NOTE | 2024-02-13 07:37 | ECG_ITS ---
APPROVED REPORT Exam: Resting ECG HR:112 bpm ECG Measurements Heart Rate 112 AXES UT 108 P 77 QRSd 101 QRS 99 QT 337 T 69 QTc 403 Conclusion Sinus tachycardia PVCs Incomplete right bundle branch block Moderate ST depression Septal/anterior/lateral and inferior leads concerning for multivessel disease. No reciprocal elevations Electronically signed by : PATRICK STATON, 02/13/2024 15:52:22
--- NOTE | 2024-02-13 08:15 | PC.NURSE ---
Dr. Bowman at bedside speaking with pt
--- NOTE | 2024-02-13 08:16 | XR_ITS ---
FINAL REPORT TECHNIQUE: Single view chest CLINICAL HISTORY: SOA, hypoxia, Chest tightness, CHF COMPARISON: 02/07/2024 FINDINGS: A single view of the chest was obtained. The heart and mediastinum are within normal limits. There are increased markings in the right lung base suspicious for pneumonia. There is no pneumothorax. Osseous structures are unremarkable. IMPRESSION: Increased markings at the right lung base suspicious for pneumonia. Reviewed, Interpreted and Dictated by Corey Guerrero MD Transcribed by Hanny Porras Authenticated and [facility]
[2024-02-13 08:21] LABS: VBG Base Excess 4.2 mmol/L (-2.4-2.3); VBG HCO3 27.9 mmol/L (23-30); VBG PCO2 39.9 mmol/L (35-51); VBG PH 7.46 mmol/L (7.31-7.41); VBG PO2 33.2 mmol/L (28-40); VBG Total CO2 29.2 mmol/L (23-27)
[2024-02-13 08:22] LABS: Lactate Venous 2.8 mmol/L (0.4-2.0)
[2024-02-13 08:25] LABS: Basophils # 0.1 K/mm3 (0-0.2); Basophils % 0.5 % (0.1-2.0); Chloride 97 mmol/L (98-107); Eosinophils # 0.2 K/mm3 (0.0-0.4); Eosinophils % 1.7 % (0.1-12.0); Hematocrit 35.6 % (37.0-47.0); Hemoglobin 10.1 g/dL (12.2-16.2); Lymphocytes % 8.6 % (10-50); Mean Corpuscular HGB Conc 28.4 g/dL (31.8-35.4); Mean Corpuscular Volume 70.3 fl (81-99); Mean Platelet Volume 8.3 fl (7.4-10.4); Monocytes # 0.5 K/mm3 (0.1-1.0); Monocytes % 4.4 % (1.7-9.3); Neutrophils % 84.7 % (37.0-80.0); Platelet Count 173 K/mm3 (142-424); Red Blood Count 5.06 M/mm3 (4.20-5.40); Red Cell Distribution Width 19.9 % (11.5-17.5); White Blood Count 11.8 K/mm3 (4.8-10.8)
[2024-02-13 08:26] LABS: Potassium 3.9 mmoL/L (3.5-5.1); Sodium 137 mmol/L (136-145)
--- NOTE | 2024-02-13 08:26 | PC.NURSE ---
RAD at BS for pt eval
[2024-02-13 08:28] LABS: Alanine Aminotransferase 21 U/L (12-78); Alkaline Phosphatase 97 U/L (38-126); Anion Gap 10.9 mEq/L (5-15); Aspartate Amino Transferase 24 U/L (14-36); Bilirubin,Total 0.8 mg/dl (0.2-1.3); Blood Urea Nitrogen 10 mg/dl (7-17); Carbon Dioxide 33 mmol/L (22.0-30.0); Creatinine Clearance Estimated 89 mL/min (50-200); Estimated Glomerular Filt Rate 101 ml/min (>60); GFR (African American) 123 ML/MIN (>60)
[2024-02-13 08:29] LABS: Albumin Level 3.5 g/dl (3.5-5.0); Albumin/Globulin Ratio 1.1 (1.1-1.8); Calcium 8.9 mg/dl (8.4-10.2); Globulin 3.1 g/dL (1.3-3.2); Glucose 101 mg/dl (74-100); Magnesium 1.9 mg/dl (1.6-2.3); Total Protein,Serum 6.6 g/dl (6.3-8.2)
[2024-02-13] MEDS: METHYLPREDNISOLONE SOD SUCC 125MG VIAL 125 MG IV (08:34)
[2024-02-13] MEDS: IPRATROPIUM/ALBUTEROL 3 ML NEB 9 ML IH (08:34)
[2024-02-13 08:38] LABS: NT Pro Brain Natriuretic Pep. 9310 pg/mL (0-125)
--- NOTE | 2024-02-13 08:38 | [facility].EDCP ---
Discharge Plan Disposition Patient Disposition: Home, Self-Care Prescriptions Prescriptions: New fluticasone furoate-vilanterol [Breo Ellipta] 100-25 mcg/dose blister with device 1 inh inhalation DAILY Qty: 60 0RF Spiriva Respimat 2.5 mcg/actuation mist 2 puff inhalation DAILY Qty: 4 0RF levofloxacin 750 mg tablet 750 mg PO DAILY 7 Days Qty: 7 0RF prednisone 20 mg tablet 40 mg PO DAILY 5 Days Qty: 10 0RF No Action aspirin [Adult Low Dose Aspirin] 81 mg tablet,delayed release (DR/EC) 81 mg PO DAILY fluticasone propionate [Flonase Allergy Relief] 50 mcg/actuation spray,suspension 1 spray intranasal DAILYP PRN (Reason: Allergies) Rx Instructions: Administer 1 spray into each nostril albuterol sulfate 90 mcg/actuation HFA aerosol inhaler 2 puff INHALATION QIDP PRN (Reason: Shortness Of Breath Or Wheezing) Qty: 8.5 5RF alprazolam 0.5 mg tablet 0.5 mg PO BIDP PRN (Reason: Anxiety) Qty: 60 2RF colestipol 1 gram tablet 1 g PO BID PRN (Reason: Diarrhea) Qty: 180 3RF empagliflozin 10 mg tablet 10 mg PO DAILY 30 Days Qty: 90 2RF escitalopram oxalate 20 mg tablet 40 mg PO HS Qty: 90 1RF omeprazole 40 mg capsule,delayed release(DR/EC) 40 mg PO BID Qty: 180 1RF pramipexole 1 mg tablet 1 mg PO HS Qty: 90 1RF pregabalin 150 mg capsule 150 mg PO HS Qty: 90 1RF Entresto 24-26 mg tablet 1 tab PO BID 30 Days Qty: 180 1RF Hold Instructions: Pending follow-up with cardiology furosemide 40 mg tablet 40 mg PO BID 30 Days Qty: 180 2RF Rx Instructions: Take twice daily every other day alternating with once daily cyanocobalamin (vitamin B-12) 1,000 mcg/mL solution 1,000 mcg IM MONTHLY Qty: 10 1RF atorvastatin 20 mg tablet 20 mg PO HS 90 Days Qty: 90 0RF ipratropium-albuterol 0.5 mg-3 mg(2.5 mg base)/3 mL solution for nebulization 3 ml inhalation Q8H 90 Days Qty: 540 3RF fluticasone furoate-vilanterol [Breo Ellipta] 200-25 mcg/dose blister with device 1 inh inhalation DAILY 90 Days Qty: 90 2RF Spiriva Respimat 2.5 mcg/actuation mist 2 inh inhalation DAILY 90 Days Qty: 4 3RF Rx Instructions: COPD azithromycin 250 mg tablet 250 mg PO MOWEFR potassium chloride 20 mEq tablet,ER particles/crystals 40 meq PO DAILY Patient Comments: TAKE (2) TABLETS BY MOUTH DAILY. cefdinir 300 mg capsule 300 mg PO BID 4 Days Qty: 8 0RF spironolactone 25 mg tablet 25 mg PO BID 30 Days Qty: 60 3RF lidocaine 5 % adhesive patch,medicated 1 patch topical DAILY Qty: 30 3RF Rx Instructions: leave on most painful area for up to 12 hrs Referrals Follow up/Referrals: Provider,Referral, MD [Primary Care Provider] - See instructions Activity Restrictions/Add. Instructions Additional Instructions/Restrictions: Prednisone each morning for 5 days. Also take levofloxacin (antibiotic) once daily for 7 days inhalers as prescribed. Continue taking your fluid medication (40 mg alternating once and twice daily every other day) until following up with family doctor in the next 48 hours. Call your family doctor to establish care for this visit to the emergency department and schedule follow-up within 48 hours to ensure improvement. If you have any worsening of your condition or any other concerning signs or symptoms, return to the emergency department or your primary care doctor for further evaluation. Clinical Impressions Clinical Impression: Acute exacerbation of chronic obstructive pulmonary disease, CHF exacerbation, Pneumonia Instructions Patient Instructions: DI for Heart Failure, DI for Chronic Obstructive Pulmonary Disease, DI for Pneumonia -- Adult Discharge ED Provider: Jeovanny Bowman [facility] General Chief Complaint: Chest Pain Stated Complaint: chest pain Time Seen by Provider: 02/13/24 07:57 Mode of Arrival: Family Vehicle Source of Information: Patient, Spouse and Medical Record Limitations: No Limitations Description of Symptoms (Recalled from ER Triage Doc. by RN): Pt c/o chest and breathing tightness this morning. She was recently in the admitted to [facility] 02/06-02/08 for CHF. She wears home O2 @ 2L during the day and 3L at night. States, I just can't get my breath . Her sat on arrival on 3LPM NC was 62%. Her is managin her medications at home and states he is following att the changes the providers have made, but it is difficult as cardiology, pulmonology, and PCP have made multiple changes. History of Present Illness HPI narrative: Please note that above description of symptoms, in this electronic medical record under categorization of recalled from ER triage doctor by RN are reflective of an initial nursing assessment, however, is not reflective of my full history and physical exam that was personally taken and clarified. Consequentially, this preceding description of symptoms, which may include the patient's categorized chief complaint in the EMR, do not reflect my personal clinical impression, and the ultimate description of history of present illness and patient stated complaints should be deferred to this section of the note. Unless stated otherwise or congruent with this section of the note, additional signs, symptoms, or incongruence should be interpreted as inaccurate with my clinical impression. Related Data Home Medications Medication Instructions Recorded Confirmed aspirin 81 mg tablet,delayed 81 mg PO DAILY 08/09/22 02/08/24 release (Adult Low Dose Aspirin) fluticasone propionate 50 1 spray intranasal DAILYP PRN 04/04/23 02/08/24 mcg/actuation nasal Allergies spray,suspension (Flonase Allergy Relief) azithromycin 250 mg tablet 250 mg PO MOWEFR 02/08/24 02/08/24 potassium chloride 20 mEq 40 meq PO DAILY 02/08/24 02/08/24 tablet,extended release(part/cryst) Previous Rx's Medication Instructions Recorded lidocaine 5 % topical patch 1 patch topical DAILY #30 ea 11/09/23 albuterol sulfate 90 mcg/actuation 2 puff inhalation QIDP PRN 11/21/23 aerosol inhaler Shortness Of Breath Or Wheezing #8.5 grams alprazolam 0.5 mg tablet 0.5 mg PO BIDP PRN Anxiety #60 tabs 11/21/23 colestipol 1 gram tablet 1 g PO BID PRN Diarrhea #180 tabs 11/21/23 empagliflozin 10 mg tablet 10 mg PO DAILY Heart failure 30 11/21/23 days #90 tabs escitalopram oxalate 20 mg tablet 40 mg (2 x 20 mg) PO HS Depression 11/21/23 #90 tabs omeprazole 40 mg capsule,delayed 40 mg PO BID #180 caps 11/21/23 release pramipexole 1 mg tablet 1 mg PO HS #90 tabs 11/21/23 pregabalin 150 mg capsule 150 mg PO HS Pain #90 caps 11/21/23 sacubitril 24 mg-valsartan 26 mg 1 tab PO BID 30 days #180 tabs 11/21/23 tablet (Entresto) cyanocobalamin (vitamin B-12) 1,000 mcg IM MONTHLY Supplement 12/21/23 1,000 mcg/mL injection solution #10 mL furosemide 40 mg tablet 40 mg PO BID 30 days #180 tabs 01/04/24 atorvastatin 20 mg tablet 20 mg PO HS Cholesterol 90 days 01/18/24 #90 tabs ipratropium 0.5 mg-albuterol 3 mg 3 ml inhalation Q8H 3 months #540 01/23/24 (2.5 mg base)/3 mL nebulization mL soln cefdinir 300 mg capsule 300 mg PO BID 4 days #8 caps 02/09/24 spironolactone 25 mg tablet 25 mg PO BID Fluid 30 days #60 tabs 02/09/24 fluticasone furoate 200 1 inh inhalation DAILY 90 days #90 02/10/24 mcg-vilanterol 25 mcg/dose ea inhalation powder (Breo Ellipta) tiotropium bromide 2.5 2 inh inhalation DAILY Breathing 02/10/24 mcg/actuation mist for inhalation problems 90 days #4 grams (Spiriva Respimat) fluticasone furoate 100 1 inh inhalation DAILY #60 ea 02/13/24 mcg-vilanterol 25 mcg/dose inhalation powder (Breo Ellipta) levofloxacin 750 mg tablet 750 mg PO DAILY 7 days #7 tabs 02/13/24 prednisone 20 mg tablet 40 mg (2 x 20 mg) PO DAILY 5 days 02/13/24 #10 tabs tiotropium bromide 2.5 2 puff inhalation DAILY #4 grams 02/13/24 mcg/actuation mist for inhalation (Spiriva Respimat) Allergies Allergy/AdvReac Type Severity Reaction Status Date / Time ofloxacin Allergy Unknown Verified 02/06/24 14:32 allergy reaction Quinidine-Quinine Analogues Allergy Unknown Verified 02/06/24 14:32 (Cincho allergy reaction rofecoxib [From Vioxx] Allergy Unknown Verified 02/06/24 14:32 allergy reaction tramadol Allergy Unknown Verified 02/06/24 14:32 allergy reaction amoxicillin [From Amoxil] AdvReac Intermediate NAUSEA/VOMI Verified 02/06/24 14:32 TING PFSH PFS Disclaimer: The information contained in this section may have been updated after the patient was seen, as this information can be updated by other users. 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 Hypokalemia Sore throat Leg pain Cough Dyspnea on exertion Eosinophilia Allergic rhinitis, unspecified Tobacco abuse disorder Tobacco abuse counseling Encounter for screening for malignant neoplasm of lung in current smoker with 30 pack year history or greater Chronic bronchitis Pulmonary fibrosis Lung nodule Asthma COPD (chronic obstructive pulmonary disease) Eosinophilia Allergic rhinitis Tobacco abuse counseling Tobacco abuse Encounter for screening for malignant neoplasm of lung in current smoker with 30 pack year history or greater Chronic bronchitis Pulmonary fibrosis, unspecified Lung nodule Unspecified asthma, uncomplicated Allergic rhinitis, unspecified Tobacco abuse counseling Edema Bilateral leg pain CAD (coronary artery disease) Elevated left ventricular end-diastolic pressure (LVEDP) Tobacco dependence syndrome Fatigue Atypical angina Dyspnea Abnormal cardiovascular stress test Bilateral leg pain TMJ dysfunction Fibromyalgia Bilateral low back pain with sciatica Leg pain, bilateral Obesity (BMI 30-39.9) Hyperlipidemia Hypothyroidism GERD (gastroesophageal reflux disease) COPD (chronic obstructive pulmonary disease) Neuropathy Anxiety Hypertension Surgical History History of spinal surgery History of bladder suspension procedure History of sinus surgery History of hysterectomy History of hemorrhoidectomy History of section History of cardiac cath History of colonoscopy History of arthroscopy of knee Family History Family history of acute congestive heart failure Mother Hypertension Mother Social History Smoking Status: Former smoker tobacco type: cigarettes packs per day: 1 years smoked: 40 second hand exposure: Yes alcohol intake: never substance use type: denies use current occupational status: unemployed Travel in the last 8 weeks: None household members: spouse housing: house current occupational exposures/hazards: No caffeine: Yes bobby/presybeterian: Zoroastrianism ROS Obtained: Yes All systems reviewed & no additional complaints except as documented Physical Exam General General appearance: alert, obese and other (Niccoli ill) Neck Neck exam: Present trachea midline Chest Chest inspection: Present normal inspection and symmetric chest wall rise Respiratory Respiratory exam: Present wheezes (Diffuse bilateral) and other (4 L nasal cannula in place); Absent respiratory distress, stridor, accessory muscle use or prolonged expiratory phase Cardiovascular Cardiovascular exam: Present regular rate and normal rhythm Extremities Exam Extremities exam: Absent edema Neurological Exam Neurological exam: Present alert, oriented X3 and CN II-XII intact Skin Skin exam: Present warm and dry; Absent cyanosis, diaphoresis or pallor HEART Score HEART Score HEART Score assessment performed?: Yes History (anamnesis): Moderately suspicious ECG: Non-specific disturbance Age: 45-65 years Risk factors: 3 or more risk factors Troponin: </= normal limit HEART Score: 5 Critical Care Critical Care Time Critical Care Time: No Medical Decision Making Medical Records Medical records reviewed: Yes I reviewed the patient's medical records. Je Inquiry Pt receiving controlled substance: No Je was queried for this patient: No Vital Signs Vital Signs: 02/13/24 07:56 02/13/24 08:00 02/13/24 08:30 Temperature 97.6 F Temperature Source Oral Pulse Rate 99 H 91 H Pulse Rate [Right] 87 Respiratory Rate 29 H 23 Blood Pressure 128/47 L 108/41 L Blood Pressure [Right Arm] 128/47 L Blood Pressure Mean Blood Pressure Mean [Right Arm] 74 Blood Pressure Source [Right Arm] Automatic Cuff 02 Sat by Pulse Oximetry 62 L 92 L 94 L Oxygen Delivery Method Nasal Cannula Non-Rebreather Nasal Cannula Oxygen Flow Rate (LPM) 3 15 6 02/13/24 08:45 02/13/24 09:00 02/13/24 09:30 Temperature Temperature Source Pulse Rate 88 87 85 Pulse Rate [Right] Respiratory Rate 24 20 20 Blood Pressure 87/63 L 127/60 111/54 L Blood Pressure [Right Arm] Blood Pressure Mean Blood Pressure Mean [Right Arm] Blood Pressure Source [Right Arm] 02 Sat by Pulse Oximetry 95 95 97 Oxygen Delivery Method Nasal Cannula Nasal Cannula Nasal Cannula Oxygen Flow Rate (LPM) 6 4 4 02/13/24 10:00 02/13/24 10:16 06/24/24 11:01 Temperature Temperature Source Pulse Rate 89 86 Pulse Rate [Right] Respiratory Rate 20 21 Blood Pressure 133/60 129/47 L 114/58 L Blood Pressure [Right Arm] Blood Pressure Mean 95 Blood Pressure Mean [Right Arm] Blood Pressure Source [Right Arm] 02 Sat by Pulse Oximetry 93 L 95 89 L Oxygen Delivery Method Nasal Cannula Nasal Cannula Nasal Cannula Oxygen Flow Rate (LPM) 4 4 4 02/13/24 11:30 02/13/24 14:20 Temperature 98.0 F Temperature Source Pulse Rate 79 60 Pulse Rate [Right] Respiratory Rate 20 22 Blood Pressure 126/57 L 120/58 L Blood Pressure [Right Arm] Blood Pressure Mean Blood Pressure Mean [Right Arm] Blood Pressure Source [Right Arm] 02 Sat by Pulse Oximetry 89 L Oxygen Delivery Method Nasal Cannula Nasal Cannula Oxygen Flow Rate (LPM) 4 4 Lab Data Labs: Lab Results 02/13/24 08:14: WBC 11.8 H, RBC 5.06, Hgb 10.1 L, Hct 35.6 L, MCV 70.3 L, MCH 20.0 L, MCHC 28.4 L, RDW 19.9 H, Plt Count 173, MPV 8.3, Neut % (Auto) 84.7 H, Lymph % (Auto) 8.6 L, [place] % (Auto) 4.4, Eos % (Auto) 1.7, Baso % (Auto) 0.5, Neut # (Auto) 10.0 H, Lymph # (Auto) 1.0, [place] # (Auto) 0.5, Eos # (Auto) 0.2, Baso # (Auto) 0.1, D-Dimer 1.19 H, Sodium 137, Potassium 3.9, Chloride 97 L, Carbon Dioxide 33 H, Anion Gap 10.9, BUN 10, Creatinine 0.60, Estimated Creat Clear 89, Estimated GFR 101, Est GFR ( Amer) 123, Glucose 101 H, Calcium 8.9, Magnesium 1.9, Total Bilirubin 0.8, AST 24, ALT 21, Alkaline Phosphatase 97, Troponin I < 0.01, NT-Pro-B Natriuret Pep 9310 H, Total Protein 6.6, Albumin 3.5, Globulin 3.1, Albumin/Globulin Ratio 1.1 02/13/24 08:16: VBG pH 7.46 H, VBG pCO2 39.9, VBG pO2 33.2, VBG HCO3 27.9, VBG Total CO2 29.2 H, VBG O2 Saturation 66.0, VBG Base Excess 4.2 H, VBG Lactic Acid 2.8 H 02/13/24 11:40: Troponin I < 0.01 02/13/24 12:39: Lactate 1.8 02/13/24 12:55: Chlamy pneumoniae PCR Not detected, Adenovirus (PCR) Not detected, B. pertussis DNA (PCR) Not detected, Coronavirus OC43 (PCR) Not detected, Coronavirus HKU1 (PCR) Not detected, Coronavirus 229E (PCR) Not detected, SARS-CoV-2 (PCR) Not detected, Coronavirus NL63 (PCR) Not detected, Human Metapneumovir PCR Not detected, Influenza A (H1) PCR Not detected, Influ A (H1N1/09) PCR Not detected, Influenza A (H3) PCR Not detected, Influenza Type A (PCR) Not detected, Influenza Type B (PCR) Not detected, M. pneumoniae (PCR) Not detected, Parainfluenza 1 (PCR) Not detected, Parainfluenza 2 (PCR) Not detected, Parainfluenza 3 (PCR) Not detected, Parainfluenza 4 (PCR) Not detected, RSV (PCR) Not detected, Entero/Rhino (PCR) Not detected 02/13/24 08:14 02/13/24 08:14 Response Orders (Tests/Meds): ED MEDICATIONS Discontinued Medications Generic Name Dose Route Start Last Admin Trade Name Freq PRN Reason Stop Dose Admin Albuterol/Ipratropium 9 ml 02/13/24 08:28 02/13/24 08:34 Ipratropium/Albuterol 3 Ml Neb IH 02/13/24 08:29 9 ml ONCE ONE Administration Lactated Ringer's 500 mls @ 999 mls/hr 02/13/24 09:45 02/13/24 11:06 Lactated Ringer's 500ml IV 02/13/24 10:15 999 mls/hr .Q31M ONE Administration Azithromycin 500 mg/ Sodium 250 mls @ 250 mls/hr 02/13/24 09:45 02/13/24 11:11 Chloride IV 02/23/24 09:44 250 mls/hr Q24H CHINO Administration Ceftriaxone Sodium 2 gm/ 100 mls @ 200 mls/hr 02/13/24 09:45 02/13/24 11:08 Sodium Chloride IV 02/13/24 10:14 200 mls/hr ONCE ONE Administration Iopamidol 75 ml 02/13/24 10:48 02/13/24 10:49 Iopamidol-370 (76%);100ml Bottle IV 02/13/24 10:49 75 ml ONCE ONE Administration Levofloxacin 750 mg 02/13/24 13:11 02/13/24 13:25 Levofloxacin 750 Mg Tablet PO 02/13/24 13:12 750 mg ONCE ONE Administration Methylprednisolone Sodium Succinate 125 mg 02/13/24 08:29 02/13/24 08:34 Methylprednisolone Sod Succ 125mg Vial IV 02/13/24 08:30 125 mg ONCE ONE Administration Sodium Chloride 10 ml 02/13/24 08:27 Sodium Chloride 0.9% 10ml Flush Syringe IV 03/14/24 08:26 NEEDED PRN Maintain IV Site Sodium Chloride 10 ml 02/13/24 10:48 02/13/24 10:49 Sodium Chloride 0.9% 10ml Syr (Rad Only) IV 02/13/24 10:49 10 ml ONCE ONE Administration Sodium Chloride 50 ml 02/13/24 10:48 02/13/24 10:49 0.9 % Sodium Chloride 50 Ml Vial IV 02/13/24 10:49 50 ml ONCE ONE Administration ORDERS Category Date Time Status CT angio chest PE protocol Stat Cat Scan 02/13/24 09:45 Completed XR chest portable Stat Exams 02/13/24 08:16 Completed Complete Blood Count Auto Diff Stat Lab 02/13/24 08:14 Completed Comprehensive Metabolic Panel Stat Lab 02/13/24 08:14 Completed D-Dimer Stat Lab 02/13/24 08:14 Completed Full Resp Panel w/COVID ([facility]) Routine Lab 02/13/24 12:55 Completed Lactic Acid Follow Up (RFLX 1) Stat Lab 02/13/24 12:39 Completed MAG [Magnesium] Stat Lab 02/13/24 08:14 Completed NT Pro Brain Natriuretic Pep. Stat Lab 02/13/24 08:14 Completed Troponin I Q3H Lab 02/13/24 11:40 Completed Troponin I Stat Lab 02/13/24 08:14 Completed Blood Culture Stat Micro 02/13/24 11:00 Received Venous Blood Gas Stat RT 02/13/24 08:16 Completed MDM Narrative Medical Decision Narrative: 63-year-old female history of hypertension, hyperlipidemia, CHF with AICD in place, COPD still smoking 1 pack/day on 3 L nasal cannula during the day, TOMER with CPAP at night on 3 L oxygen, presenting with shortness of breath. Patient states that she was just here in the emergency department and admitted last week. States that she was in a heart failure exacerbation and possibly COPD. Sent home with an antibiotic (cefdinir) states that she has been taking this every day as prescribed. Since 1 week prior to this visit, Tuesday the , patient states that she has been feeling incredibly short of breath. Got worse 2 days prior to this visit on 02/10 and started with shortness of breath, PND, orthopnea, cough productive of yellow sputum, dyspnea with exertion. Left-sided chest tightness, but no chest pains, nausea, vomiting, diaphoresis, lower extremity swelling, abdominal symptoms, urinary or bowel symptoms. No neurologic deficits. History was obtained via conversation with patient and , chart review. On arrival, patient hemodynamically stable, alert, oriented x4, appropriate, GCS 15, moving all extremities spontaneously, pupils equal and reactive to light. Full physical exam performed and significant for chronically ill-appearing woman who is in no acute distress. She is on 5 L nasal cannula from her 3 L at baseline. Lungs are diffusely wheezy bilaterally, no full sounds. Cardiac exam within normal limits, I do not appreciate a murmur on exam, minimal lower extremity edema. Abdomen soft, nontender, nondistended, no pulsatile mass. Neurologically intact grossly. Differential includes CHF exacerbation, COPD exacerbation, pneumonia, sepsis, pneumothorax, PE, ACS, MN, aortic pathology, among others. Patient was given 3 DuoNebs, methylprednisone 125 mg, aspirin for symptomatic management and correction of underlying abnormalities. Workup independently interpreted and significant for leukocytosis 11.8, D-dimer elevated at 1.2. VBG nonactionable other than lactic acid 2.8. Chemistry normal, initial troponin negative at 0.01. BNP elevated at 9300, but this is down from just a couple days prior. Chest x-ray with concern for right lower lobe pneumonia, CT PE negative on follow-up. See radiology read for full review of final results. Independent interpretation of EKG shows sinus tachycardia [address] depressions in anterolateral leads concerning for subendocardial ischemia. No reciprocal elevations. MN 108, QRS 101, QTc 403. Normal axis. Incomplete right bundle branch block morphology. Patient placed on continuous cardiac monitoring and continuous pulse ox with initial blood pressure 128/47, heart rate 99, saturation in the 60s after ambulating to the bed, up to 92% on 5 L nasal cannula after resting. Patient was placed in observation beginning at 8:15 AM in order to rule out evolving MN with delta troponins and determine need for admission versus home-going. The patient was provided meds/serial exams/monitoring while awaiting results. Independent interpretation of results demonstrated negative delta troponin. On reevaluation, patient resting at baseline and feels comfortable going home. Hospital medicine was contacted and case was discussed at length because patient does meet multiple admission criteria. They also evaluated patient, after shared decision-making, patient appropriate to go home with close outpatient follow-up. At this time, I feel patient is appropriate for discharge. Total observation time 4 hours. Prior to discharge, patient was given initial dose of levofloxacin because states she does not actually have ofloxacin allergy. She tolerated this well after 45 minutes of observation. Sent home with levofloxacin, prednisone, inhalers, and close return precautions. Because patient at baseline without signs or symptoms of clinical decompensation, deemed appropriate for discharge. Results were relayed to patient who voiced understanding and were agreeable to outpatient management and follow up. I discussed my clinical impression with patient and answered all questions. At this time, the evidence for any other entities in the differential is insufficient to warrant any further testing or ED observation. This was explained as well. Advisory was given that persistent or worsening symptoms require further evaluation. I confirmed the understanding of this discussion. [employer] Feeder disclaimer Much of this encounter note is an electronic dial marker spoken language to printed text. Electronic dial marker of the spoken language may permit errors. Although I have reviewed the note, some errors may still exist.
[2024-02-13 08:42] LABS: Troponin I < 0.01 ng/ml (0.00-0.034)
[2024-02-13 08:57] LABS: D-Dimer 1.19 ug/mL (0.0-0.5)
--- NOTE | 2024-02-13 09:45 | CT_ITS ---
FINAL REPORT TECHNIQUE: Postcontrast axial images of the chest were performed in a CTA protocol. This study was performed with techniques to keep radiation doses as low as reasonably achievable, (ALARA). Individualized dose reduction technique using automated exposure control or adjustment of mA and/or kV according to the patient's size were employed. CLINICAL HISTORY: dimer elevated, new O2, soa COMPARISON: 09/26/2023 FINDINGS: The heart is normal in size. No pleural or pericardial effusion is identified. The thoracic aorta is normal in caliber with no focal aneurysm or dissection identified. There is no filling defect to suggest pulmonary embolism. There is severe emphysema. There is a small, irregular opacity in the right lower lobe near the minor fissure measuring 18 x 11 mm which could be neoplastic or inflammatory. There is abnormal soft tissue in the right lower lobe peribronchial region suspicious for adenopathy measuring 28 x 15 mm. There are a few other smaller but enlarged peribronchial lymph nodes in this region. There is mild left lower lobe peribronchial adenopathy measuring up to 12 x 19 mm on the left. A subcarinal lymph node is seen measuring 41 x 26 mm. There is a mildly enlarged AP window lymph node as well as mild right paratracheal adenopathy. IMPRESSION: No evidence for PE on this exam. Interval development of adenopathy and right lower lobe parenchymal opacity which is nonspecific for neoplastic adenopathy or reactive adenopathy. Recommend short-term CT in 6-8 weeks time. Reviewed, Interpreted and Dictated by Corey Guerrero MD Transcribed by Hanny Porras Authenticated and [facility]
--- NOTE | 2024-02-13 10:25 | PC.NURSE ---
Dr. Bowman s/w hospitalist for admission
[2024-02-13] MEDS: 0.9 % SODIUM CHLORIDE 50 ML VIAL IV (10:49)
[2024-02-13] MEDS: SODIUM CHLORIDE 0.9% 10ML SYR (RAD ONLY) 10 ML IV (10:49)
[2024-02-13] MEDS: IOPAMIDOL-370 (76%);100ML BOTTLE 75 ML IV (10:49)
[2024-02-13] MEDS: RINGERS SOLUTION,LACTATED 500 ML 999 ML IV (11:06)
[2024-02-13] MEDS: CEFTRIAXONE SODIUM 2 GM in 0.9 % SODIUM CHLORIDE 100 ML IV (11:08)
[2024-02-13] MEDS: AZITHROMYCIN 500 MG in 0.9 % SODIUM CHLORIDE 250 ML 250 MG IV (11:11)
--- NOTE | 2024-02-13 11:38 | PC.NURSE ---
called cafeteria for meal tray
[2024-02-13 12:23] LABS: Reflex Lactic Add Lactic Reflex
--- NOTE | 2024-02-13 12:41 | PC.NURSE ---
Dr. Gant at [facility]
[2024-02-13 12:42] LABS: Troponin I < 0.01 ng/ml (0.00-0.034)
[2024-02-13 12:52] LABS: Lactic Acid Follow Up (RFLX 1) 1.8 mmol/L (0.7-2.1)
--- NOTE | 2024-02-13 12:58 | P.CONS_ITS ---
History of Present Illness *Admission Date: 02/13/24 *Reason for visit:: dyspnea *History of present illness: Ms. Woods is a 63-year-old female with extensive history of heart failure and COPD. On chronic oxygen of 2 L. Follows with cardiology and pulmonology at [facility]. She was just discharged from the hospital 4 days ago. Presented to the ER with worsening dyspnea over the past 24 hours. States she continues to have a mildly productive cough that has been present for many months. Has some chest tightness, significant wheeze on presentation. States that she has been smoking about half pack a day, has been using her nebulizer only twice a day. Has not been using her maintenance inhaler since getting home. Tried to wean her oxygen from 4 L (level that she was discharged on) down to 2 L. This was unsuccessful. Novelty more short of breath. Came in for further evaluation. In the ER, her BNP was elevated to 9000, down from 22,000 at last admission. Chest imaging obtained concerning for scar versus consolidation right lower lung field. Afebrile. Had mild bump in white count to 11,000. Improved with breathing treatment, stable on 4 L oxygen during the admission in the ER. Medicine was consulted for evaluation and discussion about admission versus discharge home with close follow-up. Patient reports she has been taking her Lasix at an alternating regimen of 1 tablet daily with a second tablet every other day. Still taking her spironolactone twice daily. Patient denies fevers, nausea, vomiting, hemoptysis. [facility] Disclaimer: The information contained in this section may have been updated after the patient was seen, as this information can be updated by other users. Medical History Dysphagia Elevated liver enzymes Pulmonary hypertension Right ventricular failure Elevated troponin Pneumonia Acute and chronic respiratory failure with hypoxia Anxiety Depression Hyperlipidemia Rectal prolapse Pneumonia Cataract CHF (congestive heart failure) COPD (chronic obstructive pulmonary disease) Pulmonary hypertension Stenosis of carotid artery Shortness of Breath Osteoarthritis Fibromyalgia History of gastroesophageal reflux (GERD) Congestive heart failure COPD mixed type Eosinophilia Tobacco abuse counseling Screening for lung cancer senior care current use of diuretic Hypokalemia Sore throat Leg pain Cough Dyspnea on exertion Eosinophilia Allergic rhinitis, unspecified Tobacco abuse disorder Tobacco abuse counseling Encounter for screening for malignant neoplasm of lung in current smoker with 30 pack year history or greater Chronic bronchitis Pulmonary fibrosis Lung nodule Asthma COPD (chronic obstructive pulmonary disease) Eosinophilia Allergic rhinitis Tobacco abuse counseling Tobacco abuse Encounter for screening for malignant neoplasm of lung in current smoker with 30 pack year history or greater Chronic bronchitis Pulmonary fibrosis, unspecified Lung nodule Unspecified asthma, uncomplicated Allergic rhinitis, unspecified Tobacco abuse counseling Edema Bilateral leg pain CAD (coronary artery disease) Elevated left ventricular end-diastolic pressure (LVEDP) Tobacco dependence syndrome Fatigue Atypical angina Dyspnea Abnormal cardiovascular stress test Bilateral leg pain TMJ dysfunction Fibromyalgia Bilateral low back pain with sciatica Leg pain, bilateral Obesity (BMI 30-39.9) Hyperlipidemia Hypothyroidism GERD (gastroesophageal reflux disease) COPD (chronic obstructive pulmonary disease) Neuropathy Anxiety Hypertension Surgical History History of spinal surgery History of bladder suspension procedure History of sinus surgery History of hysterectomy History of hemorrhoidectomy History of section History of cardiac cath History of colonoscopy History of arthroscopy of knee Family History Family history of acute congestive heart failure Mother Hypertension Mother Social History Smoking Status: Former smoker tobacco type: cigarettes packs per day: 1 years smoked: 40 second hand exposure: Yes alcohol intake: never substance use type: denies use current occupational status: unemployed Travel in the last 8 weeks: None household members: spouse housing: house current occupational exposures/hazards: No caffeine: Yes bobby/sabianism: Faith Review of Systems Review of Systems Review of systems (narrative): 14 point review of systems performed, pertinent positives and negatives as per HPI Exam Data for Last 24 hours Vital signs and Labs for Last 24 Hours: Temp Pulse Resp BP Pulse Ox O2 Del Method O2 Flow Rate 97.6 F 79 20 126/57 L 89 L Nasal Cannula 4 02/13/24 07:56 02/13/24 11:30 02/13/24 11:30 02/13/24 11:30 02/13/24 11:30 02/13/24 11:30 02/13/24 11:30 Laboratory Results - last 24 hr 02/13/24 08:14: WBC 11.8 H, RBC 5.06, Hgb 10.1 L, Hct 35.6 L, MCV 70.3 L, MCH 20.0 L, MCHC 28.4 L, RDW 19.9 H, Plt Count 173, MPV 8.3, Neut % (Auto) 84.7 H, L ymph % (Auto) 8.6 L, Gaston % (Auto) 4.4, Eos % (Auto) 1.7, Baso % (Auto) 0.5, N eut # (Auto) 10.0 H, Lymph # (Auto) 1.0, Gaston # (Auto) 0.5, Eos # (Auto) 0.2, Baso # (Auto) 0.1, D-Dimer 1.19 H, Sodium 137, Potassium 3.9, Chloride 97 L, C arbon Dioxide 33 H, Anion Gap 10.9, BUN 10, Creatinine 0.60, Estimated Creat Clear 89, Estimated GFR 101, Est GFR ( Amer) 123, Glucose 101 H, Calcium 8.9, Magnesium 1.9, Total Bilirubin 0.8, AST 24, ALT 21, Alkaline Phosphatase 97, Troponin I < 0.01, NT-Pro-B Natriuret Pep 9310 H, Total Protein 6.6, Albumin 3.5, Globulin 3.1, Albumin/Globulin Ratio 1.1 02/13/24 08:16: VBG pH 7.46 H, VBG pCO2 39.9, VBG pO2 33.2, VBG HCO3 27.9, VBG Total CO2 29.2 H, VBG O2 Saturation 66.0, VBG Base Excess 4.2 H, VBG Lactic Acid 2.8 H 02/13/24 11:40: Troponin I < 0.01 02/13/24 12:39: Lactate 1.8 I & O for Last 24 hours: Intake & Output 02/10/24 02/11/24 02/12/24 02/13/24 23:59 23:59 23:59 23:59 Weight 96.615 kg Constitutional Constitutional: mild distress, average body habitus, chronically ill appearing and cooperative *Routine HEENT Exam Head: Present normocephalic Eye: Present EOMI and PERRL ENT: Present mucous membranes moist *Routine Neck Exam Neck: Present supple; Absent lymphadenopathy *Routine Respiratory Exam Respiratory: Present prolonged expiratory phase, wheezes (expiratory, diffuse) and normal respiratory effort; Absent rhonchi or crackles *Routine Cardiovascular Exam Cardiovascular: Present RRR *Routine Abdominal Exam Abdominal: Present soft and normoactive bowel sounds; Absent tenderness *Routine Rectal Exam Patient deferred: visual exam *Routine Exam Patient deferred: external exam *Routine Extremities Exam Extremities: Absent cyanosis, clubbing or edema *Routine Skin Exam Skin: Present intact and warm; Absent rash *Routine Neurological Exam Neurological: Present alert, oriented X3 and moving all extremities; Absent altered mental status Meds Home Medications and Allergies Home Medications Medication Instructions Recorded Confirmed Type aspirin 81 mg tablet,delayed 81 mg PO DAILY 08/09/22 02/08/24 History release (Adult Low Dose Aspirin) fluticasone propionate 50 1 spray intranasal DAILYP PRN 04/04/23 02/08/24 History mcg/actuation nasal Allergies spray,suspension (Flonase Allergy Relief) lidocaine 5 % topical patch 1 patch topical DAILY #30 ea 11/09/23 02/08/24 Rx albuterol sulfate 90 mcg/actuation 2 puff inhalation QIDP PRN 11/21/23 02/08/24 Rx aerosol inhaler Shortness Of Breath Or Wheezing #8.5 grams alprazolam 0.5 mg tablet 0.5 mg PO BIDP PRN Anxiety #60 tabs 11/21/23 02/08/24 Rx colestipol 1 gram tablet 1 g PO BID PRN Diarrhea #180 tabs 11/21/23 02/08/24 Rx empagliflozin 10 mg tablet 10 mg PO DAILY Heart failure 30 11/21/23 02/08/24 Rx days #90 tabs escitalopram oxalate 20 mg tablet 40 mg (2 x 20 mg) PO HS Depression 11/21/23 02/08/24 Rx #90 tabs omeprazole 40 mg capsule,delayed 40 mg PO BID #180 caps 11/21/23 02/08/24 Rx release pramipexole 1 mg tablet 1 mg PO HS #90 tabs 11/21/23 02/08/24 Rx pregabalin 150 mg capsule 150 mg PO HS Pain #90 caps 11/21/23 02/08/24 Rx sacubitril 24 mg-valsartan 26 mg 1 tab PO BID 30 days #180 tabs 11/21/23 02/08/24 Rx tablet (Entresto) cyanocobalamin (vitamin B-12) 1,000 mcg IM MONTHLY Supplement 12/21/23 02/08/24 Rx 1,000 mcg/mL injection solution #10 mL furosemide 40 mg tablet 40 mg PO BID 30 days #180 tabs 01/04/24 02/08/24 Rx atorvastatin 20 mg tablet 20 mg PO HS Cholesterol 90 days 01/18/24 02/08/24 Rx #90 tabs ipratropium 0.5 mg-albuterol 3 mg 3 ml inhalation Q8H 3 months #540 01/23/24 02/08/24 Rx (2.5 mg base)/3 mL nebulization mL soln azithromycin 250 mg tablet 250 mg PO MOWEFR 02/08/24 02/08/24 History potassium chloride 20 mEq 40 meq PO DAILY 02/08/24 02/08/24 History tablet,extended release(part/cryst) cefdinir 300 mg capsule 300 mg PO BID 4 days #8 caps 02/09/24 Rx spironolactone 25 mg tablet 25 mg PO BID Fluid 30 days #60 tabs 02/09/24 Rx fluticasone furoate 200 1 inh inhalation DAILY 90 days #90 02/10/24 Rx mcg-vilanterol 25 mcg/dose ea inhalation powder (Breo Ellipta) tiotropium bromide 2.5 2 inh inhalation DAILY Breathing 02/10/24 Rx mcg/actuation mist for inhalation problems 90 days #4 grams (Spiriva Respimat) fluticasone furoate 100 1 inh inhalation DAILY #60 ea 02/13/24 Rx mcg-vilanterol 25 mcg/dose inhalation powder (Breo Ellipta) levofloxacin 750 mg tablet 750 mg PO DAILY 7 days #7 tabs 02/13/24 Rx prednisone 20 mg tablet 40 mg (2 x 20 mg) PO DAILY 5 days 02/13/24 Rx #10 tabs tiotropium bromide 2.5 2 puff inhalation DAILY #4 grams 02/13/24 Rx mcg/actuation mist for inhalation (Spiriva Respimat) New Prescriptions to Start Prescriptions: fluticasone furoate-vilanterol [Breo Ellipta] Yosvany Gant levofloxacin Jeovanny Bowman prednisone Jeovanny Bowman tiotropium bromide [Spiriva Respimat] Yosvany Gant Allergies Allergy/AdvReac Type Severity Reaction Status Date / Time ofloxacin Allergy Unknown Verified 02/06/24 14:32 allergy reaction Quinidine-Quinine Analogues Allergy Unknown Verified 02/06/24 14:32 (Cincho allergy reaction rofecoxib [From Vioxx] Allergy Unknown Verified 02/06/24 14:32 allergy reaction tramadol Allergy Unknown Verified 02/06/24 14:32 allergy reaction amoxicillin [From Amoxil] AdvReac Intermediate NAUSEA/VOMI Verified 02/06/24 14:32 TING Results Labs 02/13/24 08:14 02/13/24 08:14 Labs: Abnormal lab results 02/13/24 02/13/24 Range/Units 08:14 08:16 WBC 11.8 H (4.8-10.8) K/mm3 Hgb 10.1 L (12.2-16.2) g/dL Hct 35.6 L (37.0-47.0) % MCV 70.3 L (81-99) fl MCH 20.0 L (27.0-31.2) pg MCHC 28.4 L (31.8-35.4) g/dL RDW 19.9 H (11.5-17.5) % Neut % (Auto) 84.7 H (37.0-80.0) % Lymph % (Auto) 8.6 L (10-50) % Neut # (Auto) 10.0 H (1.8-7.8) K/mm3 D-Dimer 1.19 H (0.0-0.5) ug/mL VBG pH 7.46 H (7.31-7.41) mmol/L VBG Total CO2 29.2 H (23-27) mmol/L VBG Base Excess 4.2 H (-2.4-2.3) mmol/L VBG Lactic Acid 2.8 H (0.4-2.0) mmol/L Chloride 97 L (98-107) mmol/L Carbon Dioxide 33 H (22.0-30.0) mmol/L Glucose 101 H (74-100) mg/dl NT-Pro-B Natriuret Pep 9310 H (0-125) pg/mL H & H 02/13/24 Range/Units 08:14 Hgb 10.1 L (12.2-16.2) g/dL Hct 35.6 L (37.0-47.0) % All other labs normal. Assessment and Plan *Assessment and plan (1) Acute exacerbation of CHF (congestive heart failure): Status: Acute Qualifiers: Heart failure type: unspecified Qualified Code(s): I50.9 - Heart failure, unspecified Category: Medical Code(s): I50.9 - Heart failure, unspecified (2) Acute on chronic hypoxic respiratory failure: Status: Acute Category: Medical Code(s): J96.21 - Acute and chronic respiratory failure with hypoxia (3) Pulmonary arterial hypertension: Status: Acute Category: Medical Code(s): I27.21 - Secondary pulmonary arterial hypertension (4) COPD (chronic obstructive pulmonary disease): Status: Acute Qualifiers: COPD type: unspecified COPD Qualified Code(s): J44.9 - Chronic obstructive pulmonary disease, unspecified Category: Medical Code(s): J44.9 - Chronic obstructive pulmonary disease, unspecified (5) (HFpEF) heart failure with preserved ejection fraction: Status: Chronic Qualifiers: Heart failure chronicity: chronic Qualified Code(s): I50.32 - Chronic diastolic (congestive) heart failure Category: Medical Code(s): I50.30 - Unspecified diastolic (congestive) heart failure (6) 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 Category: Medical Code(s): G47.33 - Obstructive sleep apnea (adult) (pediatric); J44.9 - Chronic obstructive pulmonary disease, unspecified (7) HLD (hyperlipidemia): Status: Chronic Qualifiers: Hyperlipidemia type: unspecified Qualified Code(s): E78.5 - Hyperlipidemia, unspecified Category: Medical Code(s): E78.5 - Hyperlipidemia, unspecified (8) Pulmonary fibrosis: Status: Chronic Category: Medical Code(s): J84.10 - Pulmonary fibrosis, unspecified Plan 63-year-old female with extensive history of chronic lung disease and heart failure. Presented with hypoxia and increased oxygen requirement from baseline (however requiring the same oxygen on which she was discharged 4 days ago). Workup in the ER concerning for COPD exacerbation with improving CHF exacerbation. Patient reports she has not been taking nebulizers the way they were prescribed per her discharge med rec. Also has resumed smoking and is smoking 1/2 pack a day. Weaned her oxygen at home down to 2-3L. Is also not been using her maintenance inhalers. Additional questioning elicits that she does not recall her allergy to fluoroquinolones. Is open to trying them again. Continues to have cough with mild production. Problems addressed as follows: Acute on chronic hypoxemic respiratory failure Acute on chronic heart failure with preserved ejection fraction -BNP greater than 9k, improved from 22,000 a week ago. - Wean oxygen as tolerated, goal sats greater 90%. Currently on 4 L. - Holding Entresto -Continue spironolactone and Lasix twice daily per home orders at last discharge. Went over med rec with patient today. -Continue Jardiance 10 mg daily -Discussed case with cardiology, will focus on diuresis. Hold blood pressure meds. -Per my review of chest x-ray, scarring in right lower lobe stable. No focal consolidation. Per my review of CT of chest, has extensive emphysema but no new consolidations or airspace disease. Received azithromycin and ceftriaxone in the ER. -Recommend transitioning to levofloxacin 750 mg, complete 5 days of antibiotics for COPD exacerbation. Would benefit from 5 days of prednisone 40 mg. -White cell count up from discharge, 11 today. Patient is afebrile. -DuoNebs every 6 hours at home. Resume home Breo and Spiriva. Anxiety continue Xanax 0.5 mg daily as needed Hyperlipidemia: Continue Lipitor 20 mg nightly Continue Lyrica 150 mg nightly for pain Continue pramipexole 1 mg nightly for sleep and tremor Chronic anemia stable: - White count elevated 11.8, hemoglobin 10.1. Platelet count 173. Chronic hyponatremia: Sodium improved to 137, potassium 3.9, kidney function normal with BUN 10, creatinine 0.6. Through shared decision making with the patient and discussion with ER physician, patient is in similar condition to when she was discharged several days ago. Admits that she has not been taking her meds the way that they were ordered on discharge summary, reviewed this with her today. Also admits that she is smoking up to about 1/2 pack a day. Counseled on the need to quit smoking as it will only continue to exacerbate her symptoms. Patient states understanding. Is interested in using gum. Stable to discharge home with close follow-up, recommend follow-up with PCP in 1 to 2 days and adjustments to regimen as above with antibiotics, steroids, breathing treatment regimen.
[2024-02-13 12:59] LABS: Adenovirus,PCR Not Detected (NotDetected); Bordetella Pertussis Not Detected (NotDetected); Chlamydophila Pneumoniae, PCR Not Detected (NotDetected); Coronavirus 19, PCR Not Detected (NotDetected); Coronavirus 229E Not Detected (NotDetected); Coronavirus NL63 Not Detected (NotDetected); Coronavirus OC43 Not Detected (NotDetected); Coronovirus HKU1,PCR Not Detected (NotDetected); Human Metapneumovirus Not Detected (NotDetected); Influenza A, PCR Not Detected (NotDetected); Influenza AH1, 2009 Not Detected (NotDetected); Influenza AH1, PCR Not Detected (NotDetected); Influenza AH3,PCR Not Detected (NotDetected); Influenza B, PCR Not Detected (NotDetected); Mycoplasma Pneumoniae, PCR Not Detected (NotDetected); Parainfluenza 1, PCR Not Detected (NotDetected); Parainfluenza 2, PCR Not Detected (NotDetected); Parainfluenza 3, PCR Not Detected (NotDetected); Parainfluenza 4, PCR Not Detected (NotDetected); Respiratory Syncytial Virus Not Detected (NotDetected); Rhinovirus/Enterovirus Not Detected (NotDetected)
[2024-02-13] MEDS: levoFLOXacin 750 MG TABLET PO (13:25)
--- NOTE | 2024-02-13 13:31 | PC.NURSE ---
pt taken to the bathroom on portable O2.
== END 2024-02-13 14:25 | disposition home or self-care (01) ==
PROVIDERS: Emergency Provider Emergency Medicine
DX: J96.21 Acute and chronic respiratory failure with hypoxia; I27.20 Pulmonary hypertension, unspecified; I50.32 Chronic diastolic (congestive) heart failure; G47.33 Obstructive sleep apnea (adult) (pediatric); E78.5 Hyperlipidemia, unspecified; J84.10 Pulmonary fibrosis, unspecified; J44.1 Chronic obstructive pulmonary disease with (acute) exacerbation; J18.9 Pneumonia, unspecified organism; I11.0 Hypertensive heart disease with heart failure; I49.3 Ventricular premature depolarization; R00.0 Tachycardia, unspecified
CPT/HCPCS: 36415; 71045; 71275; 80053; 82803; 83605; 83735; 83880; 84484; 85025; 85378; 87040; 87581; 87632; 87635; 87798; 93005; 96365; 96366; 96375; 99285; J0456; J0696; J2919; J7030; J7120; J7620; Q9967